=== PATIENT | female | born 1965 | race Caucasian/White ===

== ENCOUNTER → 2016-08-27 | Outpatient (CLI) | payer OTHER ==
[~2016-08-27] MED LIST: ASPI325T39 PO; TRAM-10 PO
[2016-08-27 13:37] LABS: HEMATOCRIT 42.9 % (37-47); MEAN CELL VOLUME 98.2 fL (80-100); MEAN CORPUSCULAR HEMOGLOBIN 34.1 pg (25-34); MEAN CORPUSCULAR HGB CONC 34.7 g/dl (32-36); RED BLOOD COUNT 4.37 M/uL (4.2-5.4); WHITE BLOOD COUNT 4.24 K/uL (4.8-10.8)
[2016-08-27 13:48] LABS: MEAN PLATELET VOLUME 11.9 fL (7.4-10.4); PLATELET COUNT 75 K/uL (130-400)
[2016-08-27 13:49] LABS: ALT/SGPT 35 U/L (12-78); BLOOD UREA NITROGEN 7 mg/dl (7-18); BUN/CREATININE RATIO 10.7 (10-20); CALCIUM 8.6 mg/dl (8.5-10.1); CARBON DIOXIDE 27 mmol/L (21-32); CHLORIDE 108 mmol/L (98-107); CREATININE 0.67 mg/dl (0.60-1.20); GLUCOSE 90 mg/dl (70-99); SODIUM 143 mmol/L (136-145)
[2016-08-27 13:52] LABS: ALB/GLOB RATIO 0.7 (0.9-2); ALKALINE PHOSPHATASE 117 U/L (45-117); AST/SGOT 58 U/L (15-37)
[2016-08-27 14:14] LABS: BASO % 0.9 %; BASO ABS # 0.04 K/uL (0-0.2); COMPLETE YES; EOS % 1.7 %; LYMPH % 33.7 %; LYMPH ABS # 1.43 K/uL (1.2-3.4); MONO % 20.8 %; NEUT % 42.9 %
[2016-08-31 07:17] LABS: HEPATITIS C VIRAL RNA BY PCR <15 NOT DETECTED IU/ML (<15); HEPATITIS C VIRAL RNA(LOG) PCR <1.18 NOT DETECTED LOG IU/ML (<1.18)
== END | disposition home or self-care (01) ==
LOC: C.LAB1850 11:55
PROVIDERS: ATTEND Internal Medicine
DX: B19.20 Unspecified viral hepatitis C without hepatic coma (principal)

== ENCOUNTER → 2016-11-19 | Outpatient (CLI) | payer OTHER ==
[~2016-11-19] MED LIST changes: -TRAM-10 PO
[2016-11-19 14:45] LABS: HEMATOCRIT 40.9 % (37-47); MEAN CELL VOLUME 97.1 fL (80-100); MEAN CORPUSCULAR HEMOGLOBIN 33.7 pg (25-34); MEAN CORPUSCULAR HGB CONC 34.7 g/dl (32-36); RED BLOOD COUNT 4.21 M/uL (4.2-5.4); WHITE BLOOD COUNT 3.94 K/uL (4.8-10.8)
[2016-11-19 14:50] LABS: MEAN PLATELET VOLUME 11.9 fL (7.4-10.4); PLATELET COUNT 70 K/uL (130-400)
[2016-11-19 14:53] LABS: INR 1.1 (0.9-1.1)
[2016-11-19 15:04] LABS: ALT/SGPT 33 U/L (12-78); BLOOD UREA NITROGEN 6 mg/dl (7-18); BUN/CREATININE RATIO 9.1 (10-20); CALCIUM 8.7 mg/dl (8.5-10.1); CARBON DIOXIDE 26 mmol/L (21-32); CHLORIDE 109 mmol/L (98-107); GLUCOSE 88 mg/dl (70-99); POTASSIUM 3.9 mmol/L (3.5-5.1); SODIUM 141 mmol/L (136-145)
[2016-11-19 15:07] LABS: ALB/GLOB RATIO 0.7 (0.9-2); ALKALINE PHOSPHATASE 89 U/L (45-117); AST/SGOT 46 U/L (15-37)
[2016-11-19 15:18] LABS: BASOPHIL % 2.6 %; COMPLETE YES; EOSINOPHIL % 3.5 %; LYMPH ABS # 1.45 K/uL (1.2-3.4); LYMPHOCYTE % 36.9 %; NEUTROPHILS % 31.6 %; VARIANT LYM ABS # 0.45 K/uL; VARIANT LYMPHOCYTE % 11.4 %
[2016-11-23 09:01] LABS: HEPATITIS C VIRAL RNA BY PCR <15 NOT DETECTED IU/ML (<15); HEPATITIS C VIRAL RNA(LOG) PCR <1.18 NOT DETECTED LOG IU/ML (<1.18)
== END | disposition home or self-care (01) ==
LOC: C.LAB1850 13:12
PROVIDERS: ATTEND Internal Medicine
DX: B19.20 Unspecified viral hepatitis C without hepatic coma (principal)

== ENCOUNTER → 2016-12-07 | Outpatient (CLI) | payer OTHER ==
--- NOTE | 2016-12-07 10:33 | DIAGNOSTIC IMAGING REPORT ---
ABDOMINAL ULTRASOUND COMPLETE HISTORY: Hepatitis. Cirrhosis. . COMPARISON: 11/02/2015 FINDINGS: Pancreas: The pancreas demonstrates a normal echotexture. Liver: Mild fatty infiltration. Gallbladder: Moderately thickened gallbladder wall at 5 mm. No shadowing gallstones. No significant pericholecystic fluid. CBD: 5 mm Kidneys: No hydronephrosis. Spleen: Moderately enlarged at 13 cm Aorta: Normal in caliber. IVC: Patent. IMPRESSION: 1. Findings suggesting early hepatic cirrhosis mild fatty infiltration. 2. Moderate splenomegaly. 3. Moderate thickening gallbladder wall 5 mm possibly metabolic Electronically signed by: Bertram Fuchs M.D. 12/07/2016 10:30 AM Dictated Date/Time: 12/07/2016 10:28 AM
== END ==
LOC: C.ULTR 06:19
PROVIDERS: ATTEND Internal Medicine Hepatology
DX: K74.69 Other cirrhosis of liver (principal); B18.2 Chronic viral hepatitis C

== ENCOUNTER 2017-01-06 13:36 | Emergency (ER) | payer OTHER ==
[~2017-01-06] VITALS: Ht 165.1 cm; Wt 58.1 kg
[2017-01-06 13:44] VITALS: TEMP 37.3; Ht 165.1 cm; Wt 58.1 kg
[2017-01-06] MEDS ORDERED: ASPI325T39 PO (14:06)
[2017-01-06] MEDS ORDERED: IBUPROFEN 600 MG TAB PO STA (14:07)
[2017-01-06] MEDS ORDERED: TRAMADOL HCL 50 MG TAB PO STA (14:07)
--- NOTE | 2017-01-06 15:19 | DIAGNOSTIC IMAGING REPORT ---
THORACIC SPINE 3 VIEWS CLINICAL HISTORY: Fall with thoracic back pain. FINDINGS: AP, lateral, and swimmer's views of the thoracic spine are correlated with thoracic spinal CT dated 11/02/2015. The skeletal structures are osteopenic. There is no radiographic evidence of fracture or malalignment. Vertebral body height and alignment are maintained throughout the thoracic spine. Anterior osteophytes are seen throughout. The transverse processes and pedicles appear maintained on the frontal view. There is mild multilevel degenerative disc space narrowing. The lung parenchyma is clear as imaged noting advanced emphysema and chronic interstitial thickening. IMPRESSION: Osteopenia and degenerative change as above. No acute bony abnormality is seen involving the thoracic spine. Electronically signed by: Ismael Post M.D. 01/06/2017 3:18 PM Dictated Date/Time: 01/06/2017 3:16 PM
--- NOTE | 2017-01-06 15:27 | DIAGNOSTIC IMAGING REPORT ---
PA CHEST WITH BILATERAL RIB SERIES CLINICAL HISTORY: Fall. Chest wall pain. FINDINGS: A PA chest radiograph with 9 views from a bilateral rib series is compared to study dated 02/25/2016 and correlated with chest CT dated 11/02/2015. The cardiomediastinal silhouette is unremarkable. Advanced emphysema and chronic interstitial thickening are similar to previous. There is no airspace consolidation, pleural effusion, or pneumothorax. The skeletal structures are osteopenic. There are several healed right anterior rib fractures. These were also seen by CT on 11/02/2015. There is no radiographic evidence of acute/distracted rib fracture on the bilateral rib series. The remainder of the bony thorax is grossly intact. IMPRESSION: 1. Emphysema with no acute cardiopulmonary abnormality. 2. There is no radiographic evidence of acute/distracted rib fracture on the bilateral rib series. 3. Healed right anterior rib fractures are again noted. Electronically signed by: Ismael Post M.D. 01/06/2017 3:26 PM Dictated Date/Time: 01/06/2017 3:21 PM
--- NOTE | 2017-01-06 15:44 | EMERGENCY ROOM VISIT NOTE ---
History First contact with patient: 14:01 Chief Complaint: FALL Stated Complaint: TRIPPED AND FELL, BACK/RIB History of Present Illness The patient is a 51 year old female who presents to the Emergency Room with complaints of central back and rib pain after tripping and falling backward yesterday afternoon in her living room. The patient reports that she came inside and when walking through her living room, tripped on a dog bed laying in the floor. She reports landing directly on her back. She reports that the floor is a concrete floor. She did hit her head, but denies any headache, dizziness, nausea or neck pain. She denies any loss of consciousness. The patient now reports worsening pain with any movement or deep breathing. She does not feel short of breath. She has not noticed any darkening urine or blood in her urine. She rates her discomfort a 10 out of 10. She did take an aspirin at home without relief. 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 (7) Hepatitis, alcoholic (8) Pancreatitis Family History FH: cancer FH: heart disease Social History Smoking Status: Current Every Day Smoker Alcohol Use: occasionally Marital Status: single Housing Status: lives alone Occupation Status: unemployed Current/Historical Medications Scheduled PRN Aspirin (Aspirin Ec), 325 MG PO DIRECTED PRN for Pain Allergies Coded Allergies: Codeine (Verified Adverse Reaction, Severe, upset stomach, 03/26/16) Physical Exam Vital Signs Date Time Temp Pulse Resp B/P Pulse Ox O2 Delivery O2 Flow Rate FiO2 01/06/17 13:44 37.3 88 20 131/89 93 Room Air Physical Exam CONSTITUTIONAL: Healthy and well nourished. Alert and oriented X 3 with positive affect. Patient appears in mild discomfort from pain. Smell of EtOH is present. HEENT: Normocephalic, atraumatic. Pupils equal, round and reactive. Nose is without hemorrhage, epistaxis, hemotympanum, scalp hematomas, raccoon's eyes or Sage sign. NECK: Full active range of motion without discomfort. No tenderness to palpation through the central cervical spine or cervical musculature. RESPIRATORY: Clear to auscultation bilaterally with no wheezing, crackles, rhonchi or stridor. Deep breathing worsens the patient's central back pain. CARDIOVASCULAR: Regular rate and rhythm with no murmurs, rubs or gallops. GASTROINTESTINAL: Bowel sounds present in all quadrants. Soft and nontender to palpation. MUSCULOSKELETAL: Examination shows general tenderness to palpation through the lower thoracic spine and posterior ribs bilaterally. No subcutaneous emphysema or crepitance appreciated. The patient has no anterior chest wall pain. She has full range of motion of the shoulders without discomfort. Pelvis stable with rock. Negative logroll. Negative straight leg raise bilaterally. Distal pulses are intact. Equal hand tariff clerk bilaterally. Ankle plantar/dorsiflexion strength is 5 out of 5 and symmetric bilaterally. INTEGUMENTARY: No rash or other significant dermatologic conditions noted. NEUROLOGIC: No focal neurologic deficits noted. Upper and lower extremities are sensory intact. Medical Decision & Procedures ER Provider Diagnostic Interpretation: My interpretation of thoracic spine x-rays does not show any obvious fractures. Radiologist report is as follows: THORACIC SPINE 3 VIEWS CLINICAL HISTORY: Fall with thoracic back pain. FINDINGS: AP, lateral, and swimmer's views of the thoracic spine are correlated with thoracic spinal CT dated 11/02/2015. The skeletal structures are osteopenic. There is no radiographic evidence of fracture or malalignment. Vertebral body height and alignment are maintained throughout the thoracic spine. Anterior osteophytes are seen throughout. The transverse processes and pedicles appear maintained on the frontal view. There is mild multilevel degenerative disc space narrowing. The lung parenchyma is clear as imaged noting advanced emphysema and chronic interstitial thickening. IMPRESSION: Osteopenia and degenerative change as above. No acute bony abnormality is seen involving the thoracic spine. My interpretation of bilateral rib x-rays with a PA chest view does not show any acute posterior rib fractures or pneumothorax. Old healed anterior rib fractures are noted. Radiologist report is as follows: PA CHEST WITH BILATERAL RIB SERIES CLINICAL HISTORY: Fall. Chest wall pain. FINDINGS: A PA chest radiograph with 9 views from a bilateral rib series is compared to study dated 02/25/2016 and correlated with chest CT dated 11/02/2015. The cardiomediastinal silhouette is unremarkable. Advanced emphysema and chronic interstitial thickening are similar to previous. There is no airspace consolidation, pleural effusion, or pneumothorax. The skeletal structures are osteopenic. There are several healed right anterior rib fractures. These were also seen by CT on 11/02/2015. There is no radiographic evidence of acute/distracted rib fracture on the bilateral rib series. The remainder of the bony thorax is grossly intact. IMPRESSION: 1. Emphysema with no acute cardiopulmonary abnormality. 2. There is no radiographic evidence of acute/distracted rib fracture on the bilateral rib series. 3. Healed right anterior rib fractures are again noted. Laboratory Results Urine dip was performed to show no hematuria Medications Administered Medications (Trade) Dose Ordered Sig/Bola Route Start Time Stop Time Status Last Admin Dose Admin Tramadol HCl (Ultram Tab) 50 mg ONE STAT PO 01/06/17 14:07 01/06/17 14:10 DC 01/06/17 14:14 50 MG Ibuprofen (Motrin Tab) 600 mg NOW STAT PO 01/06/17 14:07 01/06/17 14:10 DC 01/06/17 14:14 600 MG ED Course Patient history and physical exam were performed. Nurse's notes were reviewed. The patient was administered ibuprofen 600 mg and Ultram 50 mg for pain. X- rays of the thoracic spine and ribs with a PA chest view were normal. Urine dip showed no evidence of hematuria. The patient was encouraged to intermittently apply ice to the back over the next few days, then moist heat as needed. Ibuprofen and Tylenol in alternating fashion as needed for additional pain relief. The patient refused any prescription analgesics. She was instructed to follow-up with her PCP as needed for further management. The patient was happy with plan of care, voiced understanding of all discharge instructions, and rated her pain a 3 out of 10 at the conclusion of my exam. Impression Primary Impression: Back contusion Additional Impression: Fall in home Departure Information Referrals RV. Guillen MD (PCP) Patient Instructions My [facility] Problem Qualifiers
[2017-01-06 16:00] VITALS: BP 125/76; PULSE 76; O2SAT 98
== END 2017-01-06 16:38 | disposition home or self-care (01) ==
LOC: C.EDB 13:38 → C.EDC 16:38
DX: S20.229A Contusion of unspecified back wall of thorax, initial encounter (principal); W01.0XXA Fall on same level from slipping, tripping and stumbling without subsequent striking against object, initial encounter; K70.10 Alcoholic hepatitis without ascites; K85.90 Acute pancreatitis without necrosis or infection, unspecified; F17.200 Nicotine dependence, unspecified, uncomplicated; Z88.5 Allergy status to narcotic agent; Z80.9 Family history of malignant neoplasm, unspecified; Z82.49 Family history of ischemic heart disease and other diseases of the circulatory system

== ENCOUNTER 2017-11-01 01:41 | Inpatient (IN) | payer OTHER ==
[~2017-11-01] VITALS: Ht 165.1 cm; Wt 63.7 kg
--- NOTE | 2017-11-01 01:57 | EMERGENCY ROOM VISIT NOTE ---
History Report prepared by Ivone: Mery Carbajal Under the Supervision of: Dr. Bertha Estrada D.O. First contact with patient: 01:50 Chief Complaint: ABDOMINAL PAIN Stated Complaint: ABDOMINAL PAIN ALL AROUND, VOMITING History of Present Illness The patient is a 51 year old female who presents to the Emergency Room with complaints of worsening upper abdominal pain beginning a couple months ago. The patient describes the pain as a stabbing pain and rates it at a 9/10. She also reports having a right-sided cramping pain in her chest. She states that she has been vomiting blood for a month and that the last episode was 1 week ago. She reports having nausea and vomiting currently but with no blood. She does report that when she vomits she would also get a nosebleed. She reports having fevers, chills, and shortness of breath from the pain, but denies having urinary symptoms and diarrhea. She reports that she has been feeling bloated for the last couple of months. The patient states that she has also had a cough but that she has not been coughing up blood. The patient states that she had pancreatitis 4-5 years ago, and that her pain feels similar to this. She states that she is an alcoholic and that she drinks about a fifth per day. She reports that her last drink was at 1300 yesterday. The patient states that she feels anxious and agitated. She also states that she smokes a pack of cigarettes per day. She reports that she takes aspirin daily. Source of History: patient Onset: a couple months ago Position: abdomen Symptom Intensity: rated at a 9/10 Quality: stabbing Timing: worsening Associated Symptoms: + fevers, + chills, + cough, + SOB, + nausea, + vomiting, No diarrhea, No urinary symptoms Note: additional symptoms: vomiting blood, nosebleeds with vomiting Review of Systems See HPI for pertinent positives & negatives. A total of 10 systems reviewed and were otherwise negative. Past Medical & Surgical Medical Problems: (1) Alcohol abuse (2) Alcohol intoxication (3) Alcohol withdrawal delirium, acute, hyperactive (4) Cirrhosis of liver (5) Colitis (6) Gastritis (7) Gastritis due to alcohol without hemorrhage (8) Hepatitis, alcoholic (9) Pancreatitis Family History FH: cancer FH: heart disease Social History Smoking Status: Current Every Day Smoker Alcohol Use: heavy Marital Status: Housing Status: lives with significant other Occupation Status: unemployed Current/Historical Medications Scheduled Aspirin (Aspirin Ec), 81 MG PO DAILY Allergies Coded Allergies: Codeine (Verified Adverse Reaction, Severe, upset stomach, 11/01/17) Physical Exam Vital Signs Date Time Temp Pulse Resp B/P (MAP) Pulse Ox O2 Delivery O2 Flow Rate FiO2 11/01/17 06:33 78 20 111/72 95 11/01/17 05:12 77 11/01/17 04:56 91 17 94 Nasal Cannula 2.0 11/01/17 04:54 102/75 11/01/17 04:51 124/81 11/01/17 04:26 88 19 96 Nasal Cannula 2.0 11/01/17 03:56 74 15 96 Nasal Cannula 2.0 11/01/17 03:26 83 23 98 Nasal Cannula 2.0 11/01/17 03:21 124/81 11/01/17 03:00 76 14 97 Nasal Cannula 2.0 11/01/17 02:59 97 Nasal Cannula 2.0 11/01/17 02:56 80 22 121/69 97 Nasal Cannula 2.0 11/01/17 02:27 95 Room Air 11/01/17 02:06 84 11/01/17 01:46 36.7 86 19 120/70 96 Room Air Physical Exam General: Appeared uncomfortable, smelled of alcohol. HEENT: Head - normocephalic and atraumatic Pupils are equal, round, and reactive to light. Extraocular eye muscles are intact, and sclera are anicteric. Nose - moist nasal mucosa without discharge. Mouth - moist buccal mucosa. Oropharynx is nonerythematous and there is no tonsillar exudate or edema noted. Neck: Supple; no JVD, nuchal rigidity, cervical lymphadenopathy. Heart: Tachycardic and regular rhythm. There is a normal S1 and S2 with no murmurs, clicks, or gallops appreciated. Lungs: Clear to auscultation bilaterally with no wheezes, rales, or rhonchi. Abdomen: Extreme pain in epigastrium, left upper quadrant and right upper quadrant with palpation, distended with good bowel sounds. There are no palpable pulsatile masses or hepatosplenomegaly. There is no guarding, rigidity , or rebound noted. Extremities: No evidence of cyanosis, clubbing, or edema. There are easily palpable peripheral pulses. Skin: warm and dry with good turgor and no rashes. Medical Decision & Procedures ER Provider Diagnostic Interpretation: Radiology results as stated below per my review and [facility]. CT ABDOMEN & PELVIS With Contrast: Cirrhotic liver with hepatic steatosis. Gallbladder is distended. Spleen, pancreas, and adrenal glands are unremarkable. Probably cyst with the left kidney. Otherwise, kidneys, ureters, and urinary bladder are unremarkable. Uterus and adnexa unremarkable. Appendix is unremarkable. Few scattered noninflamed colonic diverticula. Noninflamed colonic diverticulosis. Postsurgical changes within the right posterior acetabulum. US RUQ: Hepatic steatosis with fatty sparing about the gallbladder fossa. Gallbladder is distended. No gallstones, sludge, gallbladder wall thickening or pericholecystic fluid. Common bile duct is within normal limits measuring 6 mm. Right kidney is unremarkable. Trace free fluid seen about the right hepatic lobe. Laboratory Results 11/01/17 02:00 Red Blood Count 4.26, Mean Corpuscular Volume 98.4, Mean Corpuscular Hemoglobin 34.5, Mean Corpuscular Hemoglobin Concent 35.1, Mean Platelet Volume 11.7, Neutrophils (%) (Auto) 41.1, Lymphocytes (%) (Auto) 40.2, Monocytes (%) (Auto) 16.0, Eosinophils (%) (Auto) 1.8, Basophils (%) (Auto) 0.7, Neutrophils # (Auto ) 2.26, Lymphocytes # (Auto) 2.21, Monocytes # (Auto) 0.88, Eosinophils # (Auto ) 0.10, Basophils # (Auto) 0.04 11/01/17 02:00 Test 11/01/17 02:00 11/01/17 02:20 White Blood Count 5.50 K/uL (4.8-10.8) Red Blood Count 4.26 M/uL (4.2-5.4) Hemoglobin 14.7 g/dL (12.0-16.0) Hematocrit 41.9 % (37-47) Mean Corpuscular Volume 98.4 fL (80-100) Mean Corpuscular Hemoglobin 34.5 pg (25-34) Mean Corpuscular Hemoglobin Concent 35.1 g/dl (32-36) Platelet Count 65 K/uL (130-400) Mean Platelet Volume 11.7 fL (7.4-10.4) Neutrophils (%) (Auto) 41.1 % Lymphocytes (%) (Auto) 40.2 % Monocytes (%) (Auto) 16.0 % Eosinophils (%) (Auto) 1.8 % Basophils (%) (Auto) 0.7 % Neutrophils # (Auto) 2.26 K/uL (1.4-6.5) Lymphocytes # (Auto) 2.21 K/uL (1.2-3.4) Monocytes # (Auto) 0.88 K/uL (0.11-0.59) Eosinophils # (Auto) 0.10 K/uL (0-0.5) Basophils # (Auto) 0.04 K/uL (0-0.2) RDW Standard Deviation 50.5 fL (36.4-46.3) RDW Coefficient of Variation 14.1 % (11.5-14.5) Immature Granulocyte % (Auto) 0.2 % Immature Granulocyte # (Auto) 0.01 K/uL (0.00-0.02) Platelet Estimate DECREASED Large Platelets 1+ Prothrombin Time 11.4 SECONDS (9.0-12.0) Prothromb Time International Ratio 1.1 (0.9-1.1) Activated Partial Thromboplast Time 27.1 SECONDS (21.0-31.0) Partial Thromboplastin Ratio 1.0 Anion Gap 10.0 mmol/L (3-11) Est Creatinine Clear Calc Drug Dose 98.7 ml/min Estimated GFR () 121.5 Estimated GFR (Non- 104.8 BUN/Creatinine Ratio 12.7 (10-20) Calcium Level 8.5 mg/dl (8.5-10.1) Total Bilirubin 0.6 mg/dl (0.2-1) Direct Bilirubin 0.2 mg/dl (0-0.2) Aspartate Amino Transf (AST/SGOT) 99 U/L (15-37) Alanine Aminotransferase (ALT/SGPT) 55 U/L (12-78) Alkaline Phosphatase 103 U/L (45-117) Total Protein 9.1 gm/dl (6.4-8.2) Albumin 3.7 gm/dl (3.4-5.0) Lipase 463 U/L (73-393) Ethyl Alcohol mg/dL 292.0 mg/dl (0-3) Laboratory results per my review. Medications Administered Medications (Trade) Dose Ordered Sig/Bola Route Start Time Stop Time Status Last Admin Dose Admin Lorazepam (Ativan Inj) 1 mg NOW STAT IV 11/01/17 02:19 11/01/17 02:23 DC 11/01/17 02:30 1 MG Sodium Chloride 500 ml @ 999 mls/hr Q31M STAT IV 11/01/17 02:19 11/01/17 02:49 DC 11/01/17 02:19 999 MLS/HR Multivitamins 10 ml/Thiamine HCl 100 mg/Folic Acid 1 mg/Sodium Chloride 1,011.2 ml @ 200 mls/ hr Q5H4M ONCE IV 11/01/17 02:30 11/01/17 07:33 11/01/17 02:54 200 MLS/HR Hydromorphone HCl (Dilaudid Inj) 0.5 mg NOW STAT IV 11/01/17 03:04 11/01/17 03:05 DC 11/01/17 03:25 0.5 MG Lorazepam (Ativan Inj) 0.5 mg NOW STAT IV 11/01/17 04:05 11/01/17 04:06 DC 11/01/17 04:24 0.5 MG Procedure Medications Sodium Chloride 500 ml @ 999 mls/hr IV Ativan Inj 1 mg IV Multivitamins 10 ml/Thiamine HCl 100 mg/Folic Acid 1 mg/Sodium Chloride 1,011.2 ml @ 200 mls/hr IV Dilaudid Inj 0.5 mg IV Ativan Inj 0.5 mg IV ECG Per My Interpretation Indication: abdominal pain Rate (beats per minute): 81 Rhythm: normal sinus Findings: no acute ischemic change, no ectopy ED Course 0153: The patient was evaluated by the medical student. 0219: An IV lock was initiated and labs were drawn as above. Ordered Sodium Chloride 500 ml @ 999 mls/hr IV, Ativan Inj 1 mg IV. 0225: Past medical records reviewed. The patient was evaluated in room B2. A complete history and physical exam was performed. 0230: Ordered Multivitamins 10 ml/Thiamine HCl 100 mg/Folic Acid 1 mg/Sodium Chloride 1,011.2 ml @ 200 mls/hr IV. 0304: Ordered Dilaudid Inj 0.5 mg IV. The patient went for CT scan of the abdomen/pelvis to rule out acute pancreatitis. This was unremarkable except for a distended gallbladder. She will go for ultrasound of the gallbladder specifically. 0404: I checked on the patient and she says that her abdominal pain feels better but she is still shaky from withdrawal. 0405: Ordered Ativan Inj 0.5 mg IV. 0543: I reexamined the patient and she is pain free in the abdomen but she is interested in detoxing and going to rehabilitation. 0556: Upon reevaluation, I discussed findings and results with the patient. She verbalized agreement of the treatment plan. I spoke with Dr. Bennett of the [facility] Hospitalist [facility]. The patient will be evaluated for further management and care. Medical Decision The patient is a 51 year old female who presents to the ED with abdominal pain. Differential diagnosis includes SBP, ascites, alcohol withdrawal, cholecystitis , and pancreatitis. Labs Normal white count Stable H and H Platelet count of 65, baseline for her Potassium slightly low at 3.3 Glucose 94 LFTs normal Lipase 463 Coags normal Alcohol 292 This is a 51-year-old female patient presents to the emergency department with severe epigastric abdominal pain. The patient is an alcoholic. Her last alcoholic beverage was approximately 12 hours ago. She is suffering from some withdrawal symptoms at this time. She has been having intermittent episodes of epigastric abdominal pain and hematemesis. She is concerned that she has pancreatitis as she has had in the past. Her alcohol level was 292. Lipase was 463. She went for CT scan of the abdomen/pelvis which showed no evidence of pancreatic infiltration. The gallbladder was slightly distended. She went for an ultrasound of the gallbladder which showed no acute evidence of cholecystitis. The patient is requesting admission to the hospital for alcohol detox and then admission to a inpatient rehab facility. Medication Reconcilliation Current Medication List: was personally reviewed by me Blood Pressure Screening Patient's blood pressure: Normal blood pressure Consults Time Called: 0540 Consulting Physician: Dr. Bennett- MaKelsea Lopez Returned Call: [phone] Discussed the patient's case. The patient will be evaluated for further management. Impression Primary Impression: Epigastric pain Additional Impression: Alcohol withdrawal Scribe Attestation The scribe's documentation has been prepared under my direction and personally reviewed by me in its entirety. I confirm that the note above accurately reflects all work, treatment, procedures, and medical decision making performed by me. Departure Information Dispostion Being Evaluated By Hospitalist Referrals RV. Guillen MD (PCP) Patient Instructions My [facility] Problem Qualifiers Additional Impression: Alcohol withdrawal Complication of substance-induced condition: uncomplicated Qualified Codes: F10.230 - Alcohol dependence with withdrawal, uncomplicated
[2017-11-01] MEDS ORDERED: SODIUM CHLORIDE 0.9% 500ML 500 ML IV STA (02:19)
[2017-11-01] MEDS ORDERED: LORAZEPAM 2 MG/ML 1 ML VIAL IV STA ×2 (02:19→04:05)
[2017-11-01] MEDS ORDERED: MULTI-VITAMIN INFUSION INJ 10 ML, THIAMINE HCL INJ 100 MG, FoLIC ACID INJ 1 MG in SODIU... IV ONE (02:30)
[2017-11-01 02:40] LABS: ALBUMIN 3.7 gm/dl (3.4-5.0); CALCIUM 8.5 mg/dl (8.5-10.1); CREATININE 0.6 mg/dl (0.60-1.20); POTASSIUM 3.3 mmol/L (3.5-5.1)
[2017-11-01 02:41] LABS: INR 1.1 (0.9-1.1); PTT PATIENT 27.1 SECONDS (21.0-31.0)
[2017-11-01 02:43] LABS: TOTAL PROTEIN 9.1 gm/dl (6.4-8.2)
[2017-11-01] MEDS ORDERED: ASPI81TA28 PO (03:03)
[2017-11-01] MEDS ORDERED: HYDROmorphone INJ 0.5 MG/0.5 ML SYR IV STA (03:04)
[2017-11-01 03:05] LABS: HEMATOCRIT 41.9 % (37-47); HEMOGLOBIN 14.7 g/dL (12.0-16.0); MEAN CELL VOLUME 98.4 fL (80-100); MEAN CORPUSCULAR HEMOGLOBIN 34.5 pg (25-34); MEAN CORPUSCULAR HGB CONC 35.1 g/dl (32-36); MEAN PLATELET VOLUME 11.7 fL (7.4-10.4); PLATELET COUNT 65 K/uL (130-400); RED CELL DISTRIBUTION WIDTH CV 14.1 % (11.5-14.5); RED CELL DISTRIBUTION WIDTH SD 50.5 fL (36.4-46.3)
[2017-11-01] MEDS ORDERED: OPTIRAY 320 IV PRN (03:15)
[2017-11-01 03:19] LABS: BASO % 0.7 %; BASO ABS # 0.04 K/uL (0-0.2); EOS % 1.8 %; IG# 0.01 K/uL (0.00-0.02); LYMPH % 40.2 %; LYMPH ABS # 2.21 K/uL (1.2-3.4); MONO ABS # 0.88 K/uL (0.11-0.59); NEUT % 41.1 %; NEUT ABS # 2.26 K/uL (1.4-6.5)
[2017-11-01] MEDS ORDERED: POLYETHYLENE (MIRALAX) 17 GM PACK PO PRN (06:00)
[2017-11-01] MEDS ORDERED: ALUMINUM/MAGNESIUM/SIMETH (MAALOX MAX) 30 ML UDC PO PRN (06:00)
[2017-11-01] MEDS ORDERED: MAGNESIUM HYDROXIDE SUSP 30 ML UDC PO PRN (06:00)
[2017-11-01] MEDS ORDERED: ONDANSETRON INJ 2 MG/ML 2 ML VIAL IV PRN (06:00)
[2017-11-01] MEDS ORDERED: METOCLOPRAMIDE HCL INJ 5 MG/ML 2 ML VIAL IV. PRN (06:15)
[2017-11-01] MEDS ORDERED: LORAZEPAM 2 MG/ML 1 ML VIAL IV PRN ×2 (06:30)
[2017-11-01] MEDS ORDERED: LORAZEPAM INJ 1 MG in SYRINGE 0.5 ML IV PRN (06:30)
[2017-11-01] MEDS ORDERED: LORAZEPAM INJ 2 MG in SYRINGE 1 ML IV PRN (06:30)
--- NOTE | 2017-11-01 06:38 | History and Physical ---
History & Physical Date & Time of Service: Nov 01, 2017 at 06:19 Chief Complaint: Abdominal Pain All Around, Vomiting Primary Care Physician: RV. Guillen MD History of Present Illness Source: patient 51 y/o F hx Hepatitis C which was cured, pancreatitis, alcoholism and cirrhosis. The pt presented with upper quadrant abdominal pain, nausea and vomiting. She stated that some of her vomitus was blood streaked. She denies diarrhea or fevers. Denies CP or SOB. The pt was treated for pain in the ER and subjected to a CT abdomen and an ultrasound of the gallbladder. No acute findings were present and her pain and nausea gradually abated. Initial labs were notable for an ETOH level of 292, mildly elevated lipase and thrombocytopenia which is chronic. Past Medical/Surgical History 1) ETOH cirrhosis 2) Hepatitis C - cured with Harvoni 3) Pancreatitis Family History FH: cancer FH: heart disease Social History Smokes one pack daily, drinks 1/5 daily - states she has abused ETOH for 35 years Smoking Status: Current Every Day Smoker Marital Status: Occupational Status: unemployed Immunizations History of Influenza Vaccine: Yes History of Tetanus Vaccine?: Yes Tetanus Immunization Date: Nov 17, 2007 History of Pneumococcal: No History of Hepatitis B Vaccine: Unknown Allergies Coded Allergies: Codeine (Verified Adverse Reaction, Severe, upset stomach, 11/01/17) Home Medications Scheduled Aspirin (Aspirin Ec), 81 MG PO DAILY Review of Systems Constitutional: No fever, No chills, No sweats Eyes: No worsening of vision ENT: No hearing loss, No unusual epistaxis, No nasal symptoms Respiratory: No cough, No sputum, No wheezing Cardiovascular: No chest pain, No orthopnea, No PND Abdomen: + pain, + nausea, + vomiting, + problem reported (Blood streaked vomitus) Genitourinary - Female: No dysuria, No urinary frequency, No urinary urgency Neurologic: No memory loss, No paralysis, No weakness Psychiatric: + anxiety (feels as though she may be beginning to withdraw), No depression symptoms Endocrine: No fatigue Hematologic / Lymphatic: No abnormal bleeding/bruising Integumentary: No rash Allergic / Immunologic: No environmental allergies Physical Exam Vital Signs Date Time Temp Pulse Resp B/P (MAP) Pulse Ox O2 Delivery O2 Flow Rate FiO2 11/01/17 05:12 77 11/01/17 04:56 91 17 94 Nasal Cannula 2.0 3/13/18 04:54 102/75 11/01/17 04:51 124/81 11/01/17 04:26 88 19 96 Nasal Cannula 2.0 11/01/17 03:56 74 15 96 Nasal Cannula 2.0 11/01/17 03:26 83 23 98 Nasal Cannula 2.0 11/01/17 03:21 124/81 11/01/17 03:00 76 14 97 Nasal Cannula 2.0 11/01/17 02:59 97 Nasal Cannula 2.0 11/01/17 02:56 80 22 121/69 97 Nasal Cannula 2.0 11/01/17 02:27 95 Room Air 11/01/17 02:06 84 11/01/17 01:46 36.7 86 19 120/70 96 Room Air General Appearance: WD/WN, no apparent distress Head: normocephalic Eyes: normal inspection ENT: normal ENT inspection, pharynx normal Neck: supple, no JVD Respiratory/Chest: chest non-tender, lungs clear, normal breath sounds Cardiovascular: regular rate, rhythm, no edema Abdomen/GI: normal bowel sounds, + pertinent finding (Mild distention without tenderness to palpation) Back: normal inspection, no CVA tenderness Extremities/Musculoskelatal: normal inspection, no calf tenderness, normal capillary refill Neurologic/Psych: lead cook II-XII nml as tested, no motor/sensory deficits, alert, oriented x 3 Skin: normal color Diagnostics Laboratory Results Results Past 24 Hours Test 11/01/17 02:00 11/01/17 02:20 Range/Units White Blood Count 5.50 4.8-10.8 K/uL Red Blood Count 4.26 4.2-5.4 M/uL Hemoglobin 14.7 12.0-16.0 g/dL Hematocrit 41.9 37-47 % Mean Corpuscular Volume 98.4 80-100 fL Mean Corpuscular Hemoglobin 34.5 25-34 pg Mean Corpuscular Hemoglobin Concent 35.1 32-36 g/dl Platelet Count 65 130-400 K/uL Mean Platelet Volume 11.7 7.4-10.4 fL Neutrophils (%) (Auto) 41.1 % Lymphocytes (%) (Auto) 40.2 % Monocytes (%) (Auto) 16.0 % Eosinophils (%) (Auto) 1.8 % Basophils (%) (Auto) 0.7 % Neutrophils # (Auto) 2.26 1.4-6.5 K/uL Lymphocytes # (Auto) 2.21 1.2-3.4 K/uL Monocytes # (Auto) 0.88 0.11-0.59 K/uL Eosinophils # (Auto) 0.10 0-0.5 K/uL Basophils # (Auto) 0.04 0-0.2 K/uL RDW Standard Deviation 50.5 36.4-46.3 fL RDW Coefficient of Variation 14.1 11.5-14.5 % Immature Granulocyte % (Auto) 0.2 % Immature Granulocyte # (Auto) 0.01 0.00-0.02 K/uL Platelet Estimate DECREASED Large Platelets 1+ Prothrombin Time 11.4 9.0-12.0 SECONDS Prothromb Time International Ratio 1.1 0.9-1.1 Activated Partial Thromboplast Time 27.1 21.0-31.0 SECONDS Partial Thromboplastin Ratio 1.0 Sodium Level 147 136-145 mmol/L Potassium Level 3.3 3.5-5.1 mmol/L Chloride Level 112 98-107 mmol/L Carbon Dioxide Level 25 21-32 mmol/L Anion Gap 10.0 3-11 mmol/L Blood Urea Nitrogen 8 7-18 mg/dl Creatinine 0.60 0.60-1.20 mg/dl Est Creatinine Clear Calc Drug Dose 98.7 ml/min Estimated GFR () 121.5 Estimated GFR (Non- 104.8 BUN/Creatinine Ratio 12.7 10-20 Random Glucose 94 70-99 mg/dl Calcium Level 8.5 8.5-10.1 mg/dl Total Bilirubin 0.6 0.2-1 mg/dl Direct Bilirubin 0.2 0-0.2 mg/dl Aspartate Amino Transf (AST/SGOT) 99 15-37 U/L Alanine Aminotransferase (ALT/SGPT) 55 12-78 U/L Alkaline Phosphatase 103 45-117 U/L Total Protein 9.1 6.4-8.2 gm/dl Albumin 3.7 3.4-5.0 gm/dl Lipase 463 73-393 U/L Ethyl Alcohol mg/dL 292.0 0-3 mg/dl Diagnostic Radiology CT abdomen: Cirrhosis, distended gallbladder US biliary: Distended gallbladder, no thickening or evidence of infection, no ductal dilitation Impression Assessment and Plan 51 y/o F hx Hepatitis C which was cured, pancreatitis, alcoholism and cirrhosis. The pt presented with upper quadrant abdominal pain, nausea and vomiting. She stated that some of her vomitus was blood streaked. She denies diarrhea or fevers. Denies CP or SOB. The pt was treated for pain in the ER and subjected to a CT abdomen and an ultrasound of the gallbladder. No acute findings were present and her pain and nausea gradually abated. Initial labs were notable for an ETOH level of 292, mildly elevated lipase and thrombocytopenia which is chronic. 1) Abdominal pain - has resolved presently - etiology is not clear. If this recurs we ngoc consider a GI consult. 2) Nausea and vomiting with blood streaking - she did not have varices on an EGD 2015. There is no evidence of significant bleeding. GI should be consulted if this recurs. 3) ETOH intoxication/withdrawal - provided Thiamine, Folate, IVF, benzodiazepines - states she would like to be admitted to a rehab facility after she is treated for acute withdrawal. 4) Cirrhosis - can f/u as outpt 5) Thrombocytopenia - platelet count has been stable over past few years - will trend CBC daily 6) Smoker - cessation advice provided although she does have more pressing issues at present. Full code - SCDs Total time for this admit including review of labs, meds, records, imaging - discussion with pt and ER attending - 38 min Resuscitation Status VTE Prophylaxis Will order VTE Prophylaxis: Yes
[2017-11-01 06:54] VITALS: BP 131/86; PULSE 79; TEMP 36.8; O2SAT 96; Ht 165.1 cm; Wt 63.7 kg
--- NOTE | 2017-11-01 07:13 | DIAGNOSTIC IMAGING REPORT ---
ULTRASOUND RIGHT UPPER QUADRANT ABDOMEN CLINICAL HISTORY: Epigastric abdominal pain. COMPARISON STUDY: Abdominal CT dated 10/16/2013. TECHNIQUE: Real-time, grayscale, and color flow sonography of the right upper quadrant of the abdomen was performed. Images are reviewed in the transverse and longitudinal planes. FINDINGS: Liver: The liver is enlarged, measuring over 19 cm in length. The liver demonstrates heterogeneously increased echotexture consistent with hepatic steatosis. Fatty sparing is seen adjacent to gallbladder fossa. There is no intrahepatic biliary ductal dilatation. The main portal vein is patent. Gallbladder: The gallbladder is distended. No gallstones are identified. There is no gallbladder wall thickening or pericholecystic fluid. A sonographic Pierce's sign is reportedly absent. The common bile duct measures up to 0.4 cm in diameter. Pancreas: Visualized portions of the pancreatic head and body are normal in appearance. Right kidney: Survey images of the right kidney demonstrate normal size and echotexture. There is no hydronephrosis. Ascites: There is trace perihepatic fluid. IMPRESSION: 1. Hepatomegaly and hepatic steatosis. 2. No gallstones are identified. 3. Trace perihepatic fluid is noted. Electronically signed by: Ismael Post M.D. 11/01/2017 7:12 AM Dictated Date/Time: 11/01/2017 7:06 AM
[2017-11-01] MEDS: CHLORDIAZEPOXIDE 25 MG CAP PO SCH ×3 (07:16→23:32)
[2017-11-01] MEDS ORDERED: MAGNESIUM SULFATE 1GM / D5W 1 GM in PREMIXED IN D5W 100 ML IV ONE (07:30)
--- NOTE | 2017-11-01 07:46 | DIAGNOSTIC IMAGING REPORT ---
CT SCAN OF THE ABDOMEN AND PELVIS WITH IV CONTRAST CLINICAL HISTORY: Epigastric abdominal pain. COMPARISON STUDY: Abdominal CT dated 10/16/2013. Abdominal ultrasound dated 11/01/2017. TECHNIQUE: Following the IV administration of 92 cc of Optiray 320, CT scan of the abdomen and pelvis is performed from the lung bases to the proximal femora. Images are reviewed in the axial, sagittal, and coronal planes. IV contrast was administered without complication. A dose lowering technique was utilized adhering to the principles of ALARA. CT DOSE: 289.29 mGy.cm FINDINGS: Lung bases: The heart is normal in size and without pericardial effusion. A calcified granuloma is seen in the right middle lobe. The lung bases are otherwise clear. Liver: The contrast-enhanced liver is enlarged, measuring 20.3 cm in length. The liver is cirrhotic in morphology and heterogeneous in attenuation. There is hypertrophy of the left lobe and nodularity of the surface contour. The liver demonstrates diffusely diminished attenuation consistent with hepatic steatosis. There is no intrahepatic biliary ductal dilatation. The hepatic veins and portal veins are patent. There are perigastric and perisplenic varices. Numerous omental collaterals are identified. Gallbladder: The gallbladder is distended. Gallbladder wall thickening is nonspecific and likely related to cirrhosis. Spleen: The spleen is mildly enlarged measuring 13.5 cm in length. Pancreas: Unremarkable. Adrenal glands: A 10 mm low-attenuation left adrenal nodule is unchanged dating back to 2013. Although incompletely characterized, this likely represents an adenoma. The right adrenal gland is unremarkable.. Kidneys: The contrast enhanced kidneys are normal in size and without hydronephrosis. The kidneys enhance symmetrically. Abdominal vasculature: The abdominal aorta is normal in course and caliber noting mild atherosclerotic calcification. Bowel: Mild wall thickening and hyperemia is suggested involving the distal stomach. The small bowel and colon are normal in course and caliber. The appendix is well-visualized and normal. Peritoneum: There is no intraperitoneal free air or abdominal ascites. Lymphadenopathy: Mildly enlarged lymph nodes in the dajuan hepatis are likely related to chronic liver disease. Pelvic viscera: The bladder, uterus, and adnexa are normal as visualized. Skeletal structures: The skeletal structures are osteopenic. Postoperative change is seen in the right acetabulum. No lytic or blastic lesions are seen. IMPRESSION: 1. The liver is enlarged, steatotic, and demonstrates change of cirrhosis. 2. There is evidence of portal hypertension including mild splenomegaly and upper abdominal varices/collaterals. 3. Mild wall thickening and mucosal hyperemia are suggested involving the stomach. Correlate clinically for evidence of gastritis. 4. The gallbladder is distended and gallbladder wall thickening is nonspecific, possibly related to chronic liver disease. Correlation with clinical findings and serum bilirubin levels will be required. 5. Enlarged lymph nodes in the dajuan hepatis are likely related to chronic liver disease. 6. Additional findings as above. Electronically signed by: Ismael Post M.D. 11/01/2017 7:26 AM Dictated Date/Time: 11/01/2017 7:06 AM
[2017-11-01 08:00] VITALS: BP 117/71; PULSE 75; TEMP 36.7; O2SAT 97
[2017-11-01] MEDS: POTASSIUM CHLR 10 MEQ / WTR 10 MEQ in PREMIXED WATER 100 ML IV SCH ×2 (08:12→09:23)
[2017-11-01] MEDS: D5NSS + 20MEQ KCL 1,000 ML IV SCH ×2 (08:12→20:34)
[2017-11-01 12:00] VITALS: BP 115/72; PULSE 70; TEMP 36.9; O2SAT 96
[2017-11-01] MEDS: PANTOprazole SOD 40 MG TAB PO SCH (12:16)
--- NOTE | 2017-11-01 14:34 | Hospitalist Progress Note ---
Hospitalist Progress Note Date of Service Nov 01, 2017. Subjective Pt evaluation today including: conversation w/ patient, physical exam, lab review, review of studies, review of inpatient medication list Voiding: no voiding problems Patient resting in bed. Angry that she is not receiving more Librium or Ativan at her request. Discussed protocol. No more abdominal pain, N/V. States she drinks roughly 1/5 of vodka daily. Patient denies any fever, chills, sweats, lightheadedness, dizziness, vision changes, CP, palpitations, edema, SOB, wheezing, cough, abdominal pain, nausea, vomiting, diarrhea, urinary symptoms, melena, numbness/tingling, weakness, muscle/joint pain, anxiety/depression, active bleeding, or new skin discoloration/changes. Medications Current Inpatient Medications Medications (Trade) Dose Ordered Sig/Bola Route Start Time Stop Time Status Last Admin Dose Admin Ioversol (Optiray 320) 100 ml UD PRN IV 11/01/17 03:15 11/05/17 03:14 Thiamine HCl 100 mg/Syringe 10 ml @ 2 mls/min QAM IV 11/02/17 09:00 12/02/17 08:59 Folic Acid 1 mg/ Syringe 10 ml @ 5 mls/min QAM IV 11/02/17 09:00 12/02/17 08:59 Al Hydrox/Mg Hydrox/Simethicone (Maalox Max Susp) 15 ml Q4H PRN PO 11/01/17 06:00 12/01/17 05:59 Magnesium Hydroxide (Milk Of Magnesia Susp) 30 ml Q12H PRN PO 11/01/17 06:00 12/01/17 05:59 Ondansetron HCl (Zofran Inj) 4 mg Q6H PRN IV 11/01/17 06:00 12/01/17 05:59 Polyethylene (Miralax Powder Packet) 17 gm DAILY PRN PO 11/01/17 06:00 12/01/17 05:59 Potassium Chloride/Dextrose/ Sod Cl 1,000 ml @ 100 mls/hr Q10H IV 11/01/17 08:00 11/02/17 13:59 11/01/17 08:12 100 MLS/HR Metoclopramide HCl (Reglan Inj) 5 mg Q8H PRN IV. 11/01/17 06:15 12/01/17 06:14 Lorazepam (Ativan Inj) 1 mg Q2H PRN IV 11/01/17 06:30 12/01/17 06:29 Lorazepam (Ativan Inj) 2 mg Q2H PRN IV 11/01/17 06:30 12/01/17 06:29 Chlordiazepoxide (Librium Cap) 25 mg Q8H PO 11/01/17 08:00 12/01/17 06:29 11/01/17 07:16 25 MG Lorazepam 1 mg/ Syringe 1 ml @ 1 mls/min Q2H PRN IV 11/01/17 06:30 12/01/17 06:29 Lorazepam 2 mg/ Syringe 2 ml @ 1 mls/min Q2H PRN IV 11/01/17 06:30 12/01/17 06:29 Pantoprazole Sodium (Protonix Tab) 40 mg QAM PO 11/01/17 09:00 11/04/17 09:01 11/01/17 12:16 40 MG Objective Vital Signs Date Time Temp Pulse Resp B/P (MAP) Pulse Ox O2 Delivery O2 Flow Rate FiO2 11/01/17 12:00 36.9 70 18 115/72 (86) 96 Nasal Cannula 2.0 11/01/17 12:00 Room Air 11/01/17 08:00 36.7 75 18 117/71 (86) 97 Nasal Cannula 2.0 11/01/17 06:54 36.8 79 20 131/86 96 Nasal Cannula 2.0 11/01/17 06:33 78 20 111/72 95 11/01/17 05:12 77 11/01/17 04:56 91 17 94 Nasal Cannula 2.0 11/01/17 04:54 102/75 11/01/17 04:51 124/81 11/01/17 04:26 88 19 96 Nasal Cannula 2.0 11/01/17 03:56 74 15 96 Nasal Cannula 2.0 11/01/17 03:26 83 23 98 Nasal Cannula 2.0 11/01/17 03:21 124/81 11/01/17 03:00 76 14 97 Nasal Cannula 2.0 11/01/17 02:59 97 Nasal Cannula 2.0 11/01/17 02:56 80 22 121/69 97 Nasal Cannula 2.0 11/01/17 02:27 95 Room Air 11/01/17 02:06 84 11/01/17 01:46 36.7 86 19 120/70 96 Room Air Physical Exam General Appearance: no apparent distress, + pertinent finding (smells of alcohol/tobacco ) Eyes: normal inspection, PERRL ENT: hearing grossly normal Neck: supple Respiratory/Chest: lungs clear, no respiratory distress, no accessory muscle use Cardiovascular: regular rate, rhythm Abdomen: normal bowel sounds, non tender, soft Extremities: no pedal edema, no calf tenderness Neurologic/Psychiatric: alert, normal mood/affect, oriented x 3 Skin: normal color, warm/dry, no rash Laboratory Results Last 24 Hours Test 11/01/17 02:00 11/01/17 02:20 11/01/17 10:00 11/01/17 11:27 White Blood Count 5.50 K/uL Red Blood Count 4.26 M/uL Hemoglobin 14.7 g/dL Hematocrit 41.9 % Mean Corpuscular Volume 98.4 fL Mean Corpuscular Hemoglobin 34.5 pg Mean Corpuscular Hemoglobin Concent 35.1 g/dl Platelet Count 65 K/uL Mean Platelet Volume 11.7 fL Neutrophils (%) (Auto) 41.1 % Lymphocytes (%) (Auto) 40.2 % Monocytes (%) (Auto) 16.0 % Eosinophils (%) (Auto) 1.8 % Basophils (%) (Auto) 0.7 % Neutrophils # (Auto) 2.26 K/uL Lymphocytes # (Auto) 2.21 K/uL Monocytes # (Auto) 0.88 K/uL Eosinophils # (Auto) 0.10 K/uL Basophils # (Auto) 0.04 K/uL RDW Standard Deviation 50.5 fL RDW Coefficient of Variation 14.1 % Immature Granulocyte % (Auto) 0.2 % Immature Granulocyte # (Auto) 0.01 K/uL Platelet Estimate DECREASED Large Platelets 1+ Prothrombin Time 11.4 SECONDS Prothromb Time International Ratio 1.1 Activated Partial Thromboplast Time 27.1 SECONDS Partial Thromboplastin Ratio 1.0 Sodium Level 147 mmol/L Potassium Level 3.3 mmol/L Chloride Level 112 mmol/L Carbon Dioxide Level 25 mmol/L Anion Gap 10.0 mmol/L Blood Urea Nitrogen 8 mg/dl Creatinine 0.60 mg/dl Est Creatinine Clear Calc Drug Dose 98.7 ml/min Estimated GFR () 121.5 Estimated GFR (Non- 104.8 BUN/Creatinine Ratio 12.7 Random Glucose 94 mg/dl Calcium Level 8.5 mg/dl Total Bilirubin 0.6 mg/dl Direct Bilirubin 0.2 mg/dl Aspartate Amino Transf (AST/SGOT) 99 U/L Alanine Aminotransferase (ALT/SGPT) 55 U/L Alkaline Phosphatase 103 U/L Total Protein 9.1 gm/dl Albumin 3.7 gm/dl Lipase 463 U/L Ethyl Alcohol mg/dL 292.0 mg/dl Urine Color YELLOW Urine Appearance CLEAR Urine pH 5.5 Urine Specific [place] 1.040 Urine Protein NEG Urine Glucose (UA) NEG Urine Ketones NEG Urine Occult Blood NEG Urine Nitrite NEG Urine Bilirubin NEG Urine Urobilinogen NEG Urine Leukocyte Esterase NEG Urine WBC (Auto) 1-5 /hpf Urine RBC (Auto) 0-4 /hpf Urine Hyaline Casts (Auto) 1-5 /lpf Urine Epithelial Cells (Auto) 20-30 /lpf Urine Bacteria (Auto) NEG Bedside Glucose 93 mg/dl Assessment and Plan 51 y/o F hx Hepatitis C which was cured, pancreatitis, alcoholism and cirrhosis. The pt presented with upper quadrant abdominal pain, nausea and vomiting. She stated that some of her vomitus was blood streaked. She denies diarrhea or fevers. Denies CP or SOB. The pt was treated for pain in the ER and subjected to a CT abdomen and an ultrasound of the gallbladder. No acute findings were present and her pain and nausea gradually abated. Initial labs were notable for an ETOH level of 292, mildly elevated lipase and thrombocytopenia which is chronic. Abdominal pain, ?gastritis vs alcohol use vs other- RESOLVED: - Admitted to [facility] for cardiac monitoring- no acute events - Protonix added - Alcohol withdrawal protocol - UA negative - Lipase mildly elevated - Gallbladder US unremarkable Nausea and vomiting with blood streaking, ?secondary to alcohol use- RESOLVED: - She did not have varices on an EGD 2015 - Follow H&H ETOH intoxication/withdrawal: - Alcohol withdrawal protocol - IV Thiamine, Folate, IVF, Ativan, Librium - Discussed rehab w/ patient- states she will set this up on her own and does not want help in doing so Hypokalemia: Replace w/ KCL supplement, follow PRP and replace PRN Cirrhosis, portal HTN, splenomegaly, upper abdominal varices: - Discussed alcohol cessation - Consider GI consultation inpatient if status worsens; otherwise outpatient f/ u Chronic thrombocytopenia- STABLE: Follow CBC Hepatitis C- cured with Harvoni Tobacco abuse: - Smoking cessation counselling - Nicotine patch offered- denied GI prophylaxis: Protonix daily DVT prophylaxis: SCDs; hold chemical anticoagulation due to thrombocytopenia Code status: LEVEL I, FULL Dispo: Likely discharge to home when medically stable- CM consulted
[2017-11-01 15:49] VITALS: BP 129/71; PULSE 70; TEMP 36.8; O2SAT 94
[2017-11-01 19:39] VITALS: BP 135/86; PULSE 75; TEMP 36.7; O2SAT 96
[2017-11-01 23:38] VITALS: BP 120/75; PULSE 70; TEMP 37.3; O2SAT 96
[2017-11-02 03:43] VITALS: BP 131/77; PULSE 62; TEMP 36.9; O2SAT 95
[2017-11-02] MEDS: D5NSS + 20MEQ KCL 1,000 ML IV SCH (05:25)
[2017-11-02 06:19] LABS: HEMATOCRIT 38.9 % (37-47); HEMOGLOBIN 13.2 g/dL (12.0-16.0); MEAN CELL VOLUME 100.5 fL (80-100); MEAN CORPUSCULAR HEMOGLOBIN 34.1 pg (25-34); MEAN CORPUSCULAR HGB CONC 33.9 g/dl (32-36); PLATELET COUNT 43 K/uL (130-400); RED CELL DISTRIBUTION WIDTH CV 13.7 % (11.5-14.5); RED CELL DISTRIBUTION WIDTH SD 50.2 fL (36.4-46.3)
[2017-11-02 06:22] LABS: CALCIUM 7.7 mg/dl (8.5-10.1); CREATININE 0.59 mg/dl (0.60-1.20); POTASSIUM 3.5 mmol/L (3.5-5.1)
[2017-11-02 08:03] VITALS: BP 122/64; PULSE 74; TEMP 36.8; O2SAT 99
[2017-11-02] MEDS: PANTOprazole SOD 40 MG TAB PO SCH (08:26)
[2017-11-02] MEDS: CHLORDIAZEPOXIDE 25 MG CAP PO SCH (08:28)
[2017-11-02] MEDS ORDERED: FoLIC ACID INJ 1 MG in SYRINGE 9.8 ML IV SCH (09:00)
[2017-11-02] MEDS ORDERED: THIAMINE HCL INJ 100 MG in SYRINGE 9 ML IV SCH (09:00)
[2017-11-02] MEDS ORDERED: THIA100T11 PO (09:58)
[2017-11-02] MEDS ORDERED: FLV1 PO (09:58)
[2017-11-02] MEDS ORDERED: PRT40 PO (09:58)
--- NOTE | 2017-11-02 10:06 | Discharge Instructions ---
Discharge Instructions Date of Service Nov 02, 2017. Admission Reason for Admission: Alcohol Intoxication, Alcohol Withdrawal Discharge Discharge Diagnosis / Problem: Alcohol intoxication Discharge Goals Goal(s): Decrease discomfort, Improve function, Increase independence, Improve disease control, Improve nutritional status, Learn about illness, Diagnostic testing, Therapeutic intervention, Prevent Disease Progression Activity Recommendations Activity Limitations: resume your previous activity . Instructions / Follow-Up Instructions / Follow-Up You were admitted to [facility] due to nausea, vomiting, and abdominal pain. This was likely caused by alcohol intoxication. It is HIGHLY RECOMMENDED YOU AVOID ALL ALCOHOL USE Folic acid and Thiamine supplement was added to your regimen as these levels can be low with chronic alcohol use. Protonix daily was added for possible gastritis (stomach inflammation)- this is likely due to chronic alcohol use. On CT scan, evidence of cirrhosis (liver scarring), portal hypertension (high blood pressure in vessels leading to liver), splenomegaly (enlarged spleen) all of which are caused from excessive alcohol use. Again, it is highly recommended you STOP ALL ALCOHOL USE. Additionally, it is recommended you keep follow-up with GI and PCP for these conditions. Resume all other regular home medications. FOLLOW-UPS: Please follow-up with your PCP within 2-3 days Follow-up with GI within 1 month Please follow-up/keep all of your subspecialty appointments Current Hospital Diet Patient's current hospital diet: AHA Diet (Heart Healthy) Discharge Diet Recommended Diet: AHA Diet (Heart Healthy) Pending Studies Studies pending at discharge: no Medical Emergencies . Who to Call and When: Medical Emergencies: If at any time you feel your situation is an emergency, please call 911 immediately. . Non-Emergent Contact Non-Emergency issues call your: Primary Care Provider Call Non-Emergent contact if: you have a fever, your pain is not controlled, your pain is worsening, your pain is unusual for you, your pain is concerning you, you have any medication questions . . "Provider Documentation" section prepared by Ketty Trevino. .
--- NOTE | 2017-11-02 10:16 | Discharge Summary ---
Discharge Summary Date of Service Nov 02, 2017. Discharge Summary Admission Date: Nov 01, 2017 at 06:08 Discharge Date: Nov 02, 2017 Discharge Disposition: Home Principal Diagnosis: Alcohol intoxication Problems/Secondary Diagnoses: Gastritis Nausea and vomiting with blood streaking ETOH intoxication/withdrawal Hypokalemia Cirrhosis portal HTN splenomegaly upper abdominal varices Chronic thrombocytopenia Hepatitis C- cured with Harvoni h/o of pancreatitis Tobacco abuse Immunizations: Have You Had Influenza Vaccine: Yes History of Tetanus Vaccine?: Yes Tetanus Immunization Date: Nov 17, 2007 History of Pneumococcal: No History of Hepatitis B Vaccine: Unknown Procedures: CT SCAN OF THE ABDOMEN AND PELVIS WITH IV CONTRAST CLINICAL HISTORY: Epigastric abdominal pain. COMPARISON STUDY: Abdominal CT dated 10/16/2013. Abdominal ultrasound dated 11/01/2017. TECHNIQUE: Following the IV administration of 92 cc of Optiray 320, CT scan of the abdomen and pelvis is performed from the lung bases to the proximal femora. Images are reviewed in the axial, sagittal, and coronal planes. IV contrast was administered without complication. A dose lowering technique was utilized adhering to the principles of ALARA. CT DOSE: 289.29 mGy.cm FINDINGS: Lung bases: The heart is normal in size and without pericardial effusion. A calcified granuloma is seen in the right middle lobe. The lung bases are otherwise clear. Liver: The contrast-enhanced liver is enlarged, measuring 20.3 cm in length. The liver is cirrhotic in morphology and heterogeneous in attenuation. There is hypertrophy of the left lobe and nodularity of the surface contour. The liver demonstrates diffusely diminished attenuation consistent with hepatic steatosis. There is no intrahepatic biliary ductal dilatation. The hepatic veins and portal veins are patent. There are perigastric and perisplenic varices. Numerous omental collaterals are identified. Gallbladder: The gallbladder is distended. Gallbladder wall thickening is nonspecific and likely related to cirrhosis. Spleen: The spleen is mildly enlarged measuring 13.5 cm in length. Pancreas: Unremarkable. Adrenal glands: A 10 mm low-attenuation left adrenal nodule is unchanged dating back to 2013. Although incompletely characterized, this likely represents an adenoma. The right adrenal gland is unremarkable.. Kidneys: The contrast enhanced kidneys are normal in size and without hydronephrosis. The kidneys enhance symmetrically. Abdominal vasculature: The abdominal aorta is normal in course and caliber noting mild atherosclerotic calcification. Bowel: Mild wall thickening and hyperemia is suggested involving the distal stomach. The small bowel and colon are normal in course and caliber. The appendix is well-visualized and normal. Peritoneum: There is no intraperitoneal free air or abdominal ascites. Lymphadenopathy: Mildly enlarged lymph nodes in the dajuan hepatis are likely related to chronic liver disease. Pelvic viscera: The bladder, uterus, and adnexa are normal as visualized. Skeletal structures: The skeletal structures are osteopenic. Postoperative change is seen in the right acetabulum. No lytic or blastic lesions are seen. IMPRESSION: 1. The liver is enlarged, steatotic, and demonstrates change of cirrhosis. 2. There is evidence of portal hypertension including mild splenomegaly and upper abdominal varices/collaterals. 3. Mild wall thickening and mucosal hyperemia are suggested involving the stomach. Correlate clinically for evidence of gastritis. 4. The gallbladder is distended and gallbladder wall thickening is nonspecific, possibly related to chronic liver disease. Correlation with clinical findings and serum bilirubin levels will be required. 5. Enlarged lymph nodes in the dajuan hepatis are likely related to chronic liver disease. 6. Additional findings as above. Electronically signed by: Ismael Post M.D. 11/01/2017 7:26 AM Dictated Date/Time: 11/01/2017 7:06 AM The status of this report is Signed. Draft = Not yet reviewed or approved by Radiologist. Signed = Reviewed and approved by Radiologist. ULTRASOUND RIGHT UPPER QUADRANT ABDOMEN CLINICAL HISTORY: Epigastric abdominal pain. COMPARISON STUDY: Abdominal CT dated 10/16/2013. TECHNIQUE: Real-time, grayscale, and color flow sonography of the right upper quadrant of the abdomen was performed. Images are reviewed in the transverse and longitudinal planes. FINDINGS: Liver: The liver is enlarged, measuring over 19 cm in length. The liver demonstrates heterogeneously increased echotexture consistent with hepatic steatosis. Fatty sparing is seen adjacent to gallbladder fossa. There is no intrahepatic biliary ductal dilatation. The main portal vein is patent. Gallbladder: The gallbladder is distended. No gallstones are identified. There is no gallbladder wall thickening or pericholecystic fluid. A sonographic Pierce's sign is reportedly absent. The common bile duct measures up to 0.4 cm in diameter. Pancreas: Visualized portions of the pancreatic head and body are normal in appearance. Right kidney: Survey images of the right kidney demonstrate normal size and echotexture. There is no hydronephrosis. Ascites: There is trace perihepatic fluid. IMPRESSION: 1. Hepatomegaly and hepatic steatosis. 2. No gallstones are identified. 3. Trace perihepatic fluid is noted. Electronically signed by: Ismael Post M.D. 11/01/2017 7:12 AM Dictated Date/Time: 11/01/2017 7:06 AM The status of this report is Signed. Draft = Not yet reviewed or approved by Radiologist. Signed = Reviewed and approved by Radiologist. Medication Reconciliation New Medications: Folic Acid (Folic Acid) 1 Mg Tab 1 MG PO DAILY for 30 Days, #30 TAB Thiamine Hcl (Vitamin B-1) 100 Mg Tab 100 MG PO DAILY for 30 Days, #30 TAB Pantoprazole (Pantoprazole Sodium) 40 Mg Tab 40 MG PO QAM for 30 Days, #30 TAB Continued Medications: Aspirin (Aspirin Ec) 81 Mg Tab 81 MG PO DAILY Referrals At Discharge Follow up Referrals: Data Model[facility] Referral - Within a Month with Hosea Vasquez D.O. Discharge Exam Review of Systems: Constitutional: No fever, No chills, No sweats, No weakness, No fatigue Eyes: No worsening of vision ENT: No hearing loss, No sore throat, No trouble swallowing Respiratory: No cough, No shortness of breath, No hemoptysis Cardiovascular: No chest pain, No edema, No palpitations Abdomen: No pain, No nausea, No vomiting, No diarrhea, No constipation, No GI bleeding Musculoskeletal: No joint pain, No muscle pain, No swelling, No calf pain Genitourinary - Female: No dysuria, No hematuria Neurologic: No memory loss, No weakness, No numbness/tingling Psychiatric: No depression symptoms, No anxiety, No insomnia Endocrine: No fatigue Hematologic / Lymphatic: No abnormal bleeding/bruising Integumentary: No rash, No itch, No new/changing skin lesions Physical Exam: General Appearance: no apparent distress Eyes: normal inspection, PERRL ENT: hearing grossly normal Neck: supple Respiratory/Chest: lungs clear, no respiratory distress, no accessory muscle use Cardiovascular: regular rate, rhythm Abdomen / GI: normal bowel sounds, non tender, soft Extremities: no calf tenderness, no pedal edema Neurologic/Psychiatric: alert, normal mood/affect, oriented x 3 Skin: normal color, warm/dry, no rash Hospital Course 51 y/o F hx Hepatitis C which was cured, pancreatitis, alcoholism and cirrhosis. The pt presented with upper quadrant abdominal pain, nausea and vomiting. She stated that some of her vomitus was blood streaked. She denies diarrhea or fevers. Denies CP or SOB. The pt was treated for pain in the ER and subjected to a CT abdomen and an ultrasound of the gallbladder. No acute findings were present and her pain and nausea gradually abated. Initial labs were notable for an ETOH level of 292, mildly elevated lipase and thrombocytopenia which is chronic. Abdominal pain, ?gastritis vs alcohol use vs other- RESOLVED: - Admitted to [facility] for cardiac monitoring- no acute events - Protonix added for gastritis - Alcohol withdrawal protocol- no s/s of alcohol withdrawal - UA negative - Lipase mildly elevated - Gallbladder US unremarkable Nausea and vomiting with blood streaking, ?secondary to alcohol use- RESOLVED: - She did not have varices on an EGD 2015 - Follow H&H- STABLE ETOH intoxication/withdrawal: - Alcohol withdrawal protocol- no s/s of alcohol withdrawal - IV Thiamine, Folate, IVF, Ativan, Librium- added Thiamine and Folic acid to daily regimen - Discussed alcohol cessation and risk with continue alcohol use - Discussed rehab/inpatient detox w/ patient- denied want to detox inpatient, denied wanting rehab, denied CM to assist in setting up outpatient/inpatient rehab/help Hypokalemia- RESOLVED: Replace w/ KCL supplement, follow PRP and replace PRN Cirrhosis, portal HTN, splenomegaly, upper abdominal varices: - Discussed alcohol cessation - Recommend GI f/u within 1 month Chronic thrombocytopenia- STABLE: Follow CBC Hepatitis C- cured with Harvoni h/o of pancreatitis- noted Tobacco abuse: - Smoking cessation counselling - Nicotine patch offered- denied GI prophylaxis: Protonix daily DVT prophylaxis: SCDs; hold chemical anticoagulation due to thrombocytopenia Code status: LEVEL I, FULL Dispo: Discharge to home High readmission rate likely due to patient denying need for alcohol cessation Total Time Spent: Greater than 30 minutes This includes examination of the patient, discharge planning, medication reconciliation, and communication with other providers. Discharge Instructions Please refer to the electronic Patient Visit Report (Discharge Instructions) for additional information. Follow-Up Please follow-up with your PCP within 5-7 days Please follow-up with GI within 1 month Please follow-up/keep all of your subspecialty appointments Additional Copies To Addis Zurita M.D.
[2017-11-02 10:29] VITALS: BP 122/64; PULSE 74; TEMP 36.8; O2SAT 99
== END 2017-11-02 11:27 | disposition home or self-care (01) | DRG 897 ==
LOC: C.EDB 01:43 → C.2T 06:08 → ENRESERV 06:29
PROVIDERS: ADMIT Internal Medicine; ATTEND Hospitalist
DX: F10.230 Alcohol dependence with withdrawal, uncomplicated (principal); K92.0 Hematemesis; K76.6 Portal hypertension; K70.30 Alcoholic cirrhosis of liver without ascites; F17.210 Nicotine dependence, cigarettes, uncomplicated; Z79.82 Long term (current) use of aspirin; D69.6 Thrombocytopenia, unspecified; K29.70 Gastritis, unspecified, without bleeding; E87.6 Hypokalemia; I86.8 Varicose veins of other specified sites; K76.0 Fatty (change of) liver, not elsewhere classified; Z86.19 Personal history of other infectious and parasitic diseases

== ENCOUNTER 2017-12-08 02:21 | Emergency (ER) | payer OTHER ==
[~2017-12-08] VITALS: Ht 165.1 cm; Wt 64.3 kg
[~2017-12-08 02:21] MED LIST changes: -ASPI325T39 PO; +ASPI81TA28 PO; +FLV1 PO; +PRT40 PO
[2017-12-08 02:27] VITALS: TEMP 36.8; Ht 165.1 cm; Wt 64.3 kg
[2017-12-08] MEDS ORDERED: MULTI-VITAMIN INFUSION INJ 10 ML, THIAMINE HCL INJ 100 MG, FoLIC ACID INJ 1 MG in SODIU... IV STA (02:55)
[2017-12-08] MEDS ORDERED: HYDROmorphone INJ 0.5 MG/0.5 ML SYR IV STA (02:58)
--- NOTE | 2017-12-08 03:02 | EMERGENCY ROOM VISIT NOTE ---
History Report prepared by Ivone: Wandy De Leon Under the Supervision of: Dr. Bertha Estrada D.O. First contact with patient: 02:33 Chief Complaint: ABDOMINAL PAIN Stated Complaint: VOMITING,ABDOMINAL PAIN,NOSE BLEED, History of Present Illness The patient is a 51 year old female who presents to the Emergency Room with complaints of worsening abdominal pain starting today. The patient states that this is similar to the abdominal pain that she had last time she was admitted to the hospital. She reports that the pain is right under her breasts. She states that the pain is worse when she breathes. The patient complains of vomiting, loss of appetite, and back pain. The patient points to her epigastric region of her abdomen as being significantly swollen. The patient notes that she has been an alcoholic for more than 30 years. She reports that she didn't quit drinking like she was supposed following her last hospital admission. She notes that she did have an appointment to go rehab, but did not go. She notes that she is a smoker. Source of History: patient Onset: today Position: abdomen Quality: other (previous episodes) Timing: worsening Modifying Factors (Worsening): breathing Associated Symptoms: + vomiting, + back pain Note: The patient complains of loss of appetite. The patient denies her abdomen being that swollen. Review of Systems See HPI for pertinent positives & negatives. A total of 10 systems reviewed and were otherwise negative. Past Medical & Surgical Medical Problems: (1) Alcohol abuse (2) Alcohol intoxication (3) Alcohol withdrawal delirium, acute, hyperactive (4) Cirrhosis of liver (5) Colitis (6) Gastritis (7) Gastritis due to alcohol without hemorrhage (8) Hepatitis, alcoholic (9) History of hepatitis C (10) Pancreatitis (11) Portal hypertension (12) Splenomegaly Family History FH: cancer FH: heart disease Social History Smoking Status: Current Every Day Smoker Alcohol Use: heavy Marital Status: Housing Status: lives with significant other Occupation Status: unemployed Current/Historical Medications Scheduled Aspirin (Aspirin Ec), 81 MG PO DAILY Allergies Coded Allergies: Codeine (Verified Adverse Reaction, Severe, upset stomach, 11/01/17) Physical Exam Vital Signs Date Time Temp Pulse Resp B/P (MAP) Pulse Ox O2 Delivery O2 Flow Rate FiO2 12/08/17 04:40 80 20 125/81 96 12/08/17 03:26 72 20 101/70 95 Room Air 12/08/17 03:15 78 12/08/17 02:27 36.8 95 18 111/76 94 Room Air Physical Exam General: Appears uncomfortable. Has a wet cough. HEENT: Head - normocephalic and atraumatic Pupils are equal, round, and reactive to light. Extraocular eye muscles are intact, and sclera are anicteric. Nose - moist nasal mucosa without discharge. Mouth - dry buccal mucosa. Oropharynx is nonerythematous and there is no tonsillar exudate or edema noted. Neck: Supple; no JVD, nuchal rigidity, cervical lymphadenopathy. Heart: Tachycardic rate and regular rhythm. There is a normal S1 and S2 with no murmurs, clicks, or gallops appreciated. Lungs: Clear to auscultation bilaterally with no wheezes, rales, or rhonchi. Abdomen: Epigastric fullness of abdomen. Diffusely tender, with good bowel sounds. There are no palpable pulsatile masses or hepatosplenomegaly. There is no guarding, rigidity, or rebound noted. Extremities: No evidence of cyanosis, clubbing, or edema. There are easily palpable peripheral pulses. Skin: warm and dry with good turgor and no rashes. Medical Decision & Procedures ER Provider Diagnostic Interpretation: Radiology results as stated below per my review and the radiologist's interpretation: CHEST X-RAY: The results were interpreted by me. No cardiomegaly. No pulmonary consolidation or signs of pneumonia. CT ABDOMEN & PELVIS With Contrast: Heterogenous and nodular liver, likely sequela of chronic hepatocellular disease. Hepatomegaly with fatty infiltration. Varices noted in the upper abdomen. No ascites. Davonte hepatis lymphadenopathy. Normal caliber abdominal aorta. Diverticulosis without evidence of diverticulitis. Normal appendix. No bowel obstruction. Segmental wall thickening of stomach may be due to incomplete distention or gastritis. No free air or fluid collection. Postsurgical changes in the right hip. Distended bladder. Radiologist: Josh Khan MD Study ready at 04:05 and initial results transmitted at 04:18. Laboratory Results 12/08/17 02:45 Red Blood Count 4.13, Mean Corpuscular Volume 98.8, Mean Corpuscular Hemoglobin 34.9, Mean Corpuscular Hemoglobin Concent 35.3, Mean Platelet Volume 12.4, Neutrophils (%) (Auto) 32.3, Lymphocytes (%) (Auto) 48.9, Monocytes (%) (Auto) 16.2, Eosinophils (%) (Auto) 1.8, Basophils (%) (Auto) 0.6, Neutrophils # (Auto ) 1.63, Lymphocytes # (Auto) 2.47, Monocytes # (Auto) 0.82, Eosinophils # (Auto ) 0.09, Basophils # (Auto) 0.03 12/08/17 02:45 Test 12/08/17 02:45 White Blood Count 5.05 K/uL (4.8-10.8) Red Blood Count 4.13 M/uL (4.2-5.4) Hemoglobin 14.4 g/dL (12.0-16.0) Hematocrit 40.8 % (37-47) Mean Corpuscular Volume 98.8 fL (80-100) Mean Corpuscular Hemoglobin 34.9 pg (25-34) Mean Corpuscular Hemoglobin Concent 35.3 g/dl (32-36) Platelet Count 44 K/uL (130-400) Mean Platelet Volume 12.4 fL (7.4-10.4) Neutrophils (%) (Auto) 32.3 % Lymphocytes (%) (Auto) 48.9 % Monocytes (%) (Auto) 16.2 % Eosinophils (%) (Auto) 1.8 % Basophils (%) (Auto) 0.6 % Neutrophils # (Auto) 1.63 K/uL (1.4-6.5) Lymphocytes # (Auto) 2.47 K/uL (1.2-3.4) Monocytes # (Auto) 0.82 K/uL (0.11-0.59) Eosinophils # (Auto) 0.09 K/uL (0-0.5) Basophils # (Auto) 0.03 K/uL (0-0.2) RDW Standard Deviation 49.6 fL (36.4-46.3) RDW Coefficient of Variation 13.8 % (11.5-14.5) Immature Granulocyte % (Auto) 0.2 % Immature Granulocyte # (Auto) 0.01 K/uL (0.00-0.02) Large Platelets 1+ Anion Gap 7.0 mmol/L (3-11) Est Creatinine Clear Calc Drug Dose 87.1 ml/min Estimated GFR () 116.6 Estimated GFR (Non- 100.6 BUN/Creatinine Ratio 11.8 (10-20) Calcium Level 8.6 mg/dl (8.5-10.1) Magnesium Level 1.9 mg/dl (1.8-2.4) Total Bilirubin 0.7 mg/dl (0.2-1) Direct Bilirubin 0.3 mg/dl (0-0.2) Aspartate Amino Transf (AST/SGOT) 196 U/L (15-37) Alanine Aminotransferase (ALT/SGPT) 84 U/L (12-78) Alkaline Phosphatase 104 U/L (45-117) Troponin I < 0.015 ng/ml (0-0.045) Pro-B-Type Natriuretic Peptide 70 pg/ml (0-900) Total Protein 8.7 gm/dl (6.4-8.2) Albumin 3.5 gm/dl (3.4-5.0) Lipase 624 U/L (73-393) Laboratory results per my review. Medications Administered Medications (Trade) Dose Ordered Sig/Bola Route Start Time Stop Time Status Last Admin Dose Admin Multivitamins 10 ml/Thiamine HCl 100 mg/Folic Acid 1 mg/Sodium Chloride 1,011.2 ml @ 250 mls/ hr Q4H3M STAT IV 12/08/17 02:55 12/08/17 06:57 12/08/17 03:20 250 MLS/HR Hydromorphone HCl (Dilaudid Inj) 0.5 mg NOW STAT IV 12/08/17 02:58 12/08/17 02:59 DC 12/08/17 03:19 0.5 MG Procedure 0255: Ordered Multivitamins 10 ml/ Thiamine HCl 100 mg/ Folic Acid 1 mg. Sodium Chloride 1011.2 ml @ 250 mls/hr IV. 0258: Ordered Dilaudid Inj 0.5 mg IV. ECG Per My Interpretation Indication: abdominal pain Rate (beats per minute): 90 Rhythm: normal sinus Findings: no acute ischemic change, no ectopy, other (no ST segment changes) ED Course 0245: Past medical records reviewed. The patient was evaluated in room A12B. A complete history and physical exam was performed. An IV lock was initiated and labs are drawn as above. A 12-lead EKG was obtained as described above. 0255: Ordered Multivitamins 10 ml/ Thiamine HCl 100 mg/ Folic Acid 1 mg. Sodium Chloride 1011.2 ml @ 250 mls/hr IV. 0258: Ordered Dilaudid Inj 0.5 mg IV. 0423: Upon reevaluation, the patient is feeling better and would like to drink something. I discussed findings and results with her. I had an extensive conversation with her and her about the risks of pancreatitis including . I strongly encouraged the patient to go to a rehab facility for detox and rehab. She verbalized agreement of the treatment plan. She tells me that she has all of those phone numbers available at home and will call. The patient was discharged home. Medical Decision The patient is a 51 year old female who presents to the Emergency Room with complaints of worsening abdominal pain starting today. Differential diagnoses include alcohol withdrawal, pancreatitis, SBP, ascites, cholecystitis. LABS: Normal white count Stable H&H Lipase 624 AST 196 ALT 84 Direct bilirubin 0.3 Normal renal function Negative troponin This is a 51-year-old female patient with a history of alcohol abuse over the last 40 years. The patient had a history of hepatitis C which was cured using Harvoni. The patient presents with epigastric fullness and increased abdominal pain, nausea and vomiting. She states that she is unable to keep anything down. The patient had a very similar presentation earlier this year. CT scan shows no evidence of acute pancreatitis. She has no ascites. She is anxious to drink fluids here in the emergency department. She had no further vomiting. I have strongly encouraged the patient to follow-up with her PCP with regards to taking folic acid and to go to rehab. I have asked the patient to return to the emergency department for worsening symptoms such as inability to eat/drink, fevers, or intractable vomiting. Medication Reconcilliation Current Medication List: was personally reviewed by me Blood Pressure Screening Patient's blood pressure: Normal blood pressure Blood pressure disposition: Did not require urgent referral Impression Primary Impression: Epigastric abdominal pain Additional Impressions: Nausea & vomiting Alcohol abuse Scribe Attestation The scribe's documentation has been prepared under my direction and personally reviewed by me in its entirety. I confirm that the note above accurately reflects all work, treatment, procedures, and medical decision making performed by me. Departure Information Dispostion Home / Self-Care Referrals RV. Guillen MD (PCP) Forms Call Back Authorization, HOME CARE DOCUMENTATION FORM, IMPORTANT VISIT INFORMATION Patient Instructions [facility] Additional Instructions You need to go to a rehab facility for detox and rehab from [facility]. Return to the ER if your condition worsens Problem Qualifiers Additional Impressions: Nausea & vomiting Vomiting type: unspecified Vomiting Intractability: non-intractable Qualified Codes: R11.2 - Nausea with vomiting, unspecified
[2017-12-08 03:20] LABS: HEMATOCRIT 40.8 % (37-47); HEMOGLOBIN 14.4 g/dL (12.0-16.0); MEAN CELL VOLUME 98.8 fL (80-100); MEAN CORPUSCULAR HEMOGLOBIN 34.9 pg (25-34); MEAN CORPUSCULAR HGB CONC 35.3 g/dl (32-36); MEAN PLATELET VOLUME 12.4 fL (7.4-10.4); PLATELET COUNT 44 K/uL (130-400); RED CELL DISTRIBUTION WIDTH CV 13.8 % (11.5-14.5); RED CELL DISTRIBUTION WIDTH SD 49.6 fL (36.4-46.3); WHITE BLOOD COUNT 5.05 K/uL (4.8-10.8)
[2017-12-08 03:25] LABS: ALBUMIN 3.5 gm/dl (3.4-5.0); ALT/SGPT 84 U/L (12-78); AST/SGOT 196 U/L (15-37); BLOOD UREA NITROGEN 8 mg/dl (7-18); CALCIUM 8.6 mg/dl (8.5-10.1); CARBON DIOXIDE 26 mmol/L (21-32); CREATININE 0.68 mg/dl (0.60-1.20); GLUCOSE 90 mg/dl (70-99); LIPASE 624 U/L (73-393); POTASSIUM 3.4 mmol/L (3.5-5.1); SODIUM 143 mmol/L (136-145)
[2017-12-08 03:26] LABS: BASO % 0.6 %; BASO ABS # 0.03 K/uL (0-0.2); EOS % 1.8 %; EOS ABS # 0.09 K/uL (0-0.5); IG# 0.01 K/uL (0.00-0.02); LYMPH % 48.9 %; LYMPH ABS # 2.47 K/uL (1.2-3.4); MONO % 16.2 %; MONO ABS # 0.82 K/uL (0.11-0.59); NEUT % 32.3 %; NEUT ABS # 1.63 K/uL (1.4-6.5)
[2017-12-08 03:31] LABS: ALKALINE PHOSPHATASE 104 U/L (45-117); TOTAL PROTEIN 8.7 gm/dl (6.4-8.2)
[2017-12-08] MEDS ORDERED: OPTIRAY 320 IV PRN (04:00)
[2017-12-08 04:40] VITALS: BP 125/81; PULSE 80; O2SAT 96
--- NOTE | 2017-12-08 06:46 | DIAGNOSTIC IMAGING REPORT ---
ABD/PELVIS IV CONTRAST ONLY CT DOSE: 265.95 mGy.cm HISTORY: Pain. Nausea. eval for pancreatitis and ascites TECHNIQUE: Multiaxial CT images of the abdomen and pelvis were performed following the use of intravenous contrast. A dose lowering technique was utilized adhering to the principles of ALARA. COMPARISON STUDY: 11/01/2017 FINDINGS: Lung bases are clear. Cirrhotic enlarged liver. Spleen is unremarkable. Kidneys are negative for hydronephrosis. Several nonspecific upper abdominal nodes as well as upper abdominal varices are present. Nonobstructive bowel pattern. Bladder is midline. No free fluid within the pelvic cul-de-sac. No significant ascites. Mild gastric wall thickening possibly technical. Stable postoperative reconstructive changes posterior right acetabulum. IMPRESSION: 1. Hepatic cirrhosis. Mild stable hepatomegaly. 2. Nonobstructive bowel pattern. 3. Mild gastric wall thickening versus technical lack of distention. The above report was generated using voice recognition software. It may contain grammatical, syntax or spelling errors. Electronically signed by: Bertram Fuchs M.D. 12/08/2017 6:44 AM Dictated Date/Time: 12/08/2017 6:41 AM
--- NOTE | 2017-12-08 06:54 | DIAGNOSTIC IMAGING REPORT ---
CHEST ONE VIEW PORTABLE CLINICAL HISTORY: cough dyspnea COMPARISON STUDY: 01/06/2017 FINDINGS: The bones soft tissues and hemidiaphragms are normal. The cardiomediastinal silhouette is normal. The lungs are clear. The pulmonary vasculature is normal. IMPRESSION: Negative chest. The above report was generated using voice recognition software. It may contain grammatical, syntax or spelling errors. Electronically signed by: Bertram Fuchs M.D. 12/08/2017 6:52 AM Dictated Date/Time: 12/08/2017 6:52 AM
== END 2017-12-08 04:41 | disposition home or self-care (01) ==
LOC: C.EDB 02:22 → C.EDA 04:41
DX: R10.13 Epigastric pain (principal); R11.2 Nausea with vomiting, unspecified; F10.10 Alcohol abuse, uncomplicated; K74.60 Unspecified cirrhosis of liver; F17.200 Nicotine dependence, unspecified, uncomplicated; Z79.82 Long term (current) use of aspirin; Z88.5 Allergy status to narcotic agent

== ENCOUNTER 2019-01-08 17:35 | Inpatient (IN) ==
--- OUTSIDE RECORDS SUMMARY | 2019-01-08 17:38 | External Medical Summary | Continuity of Care Document ---
:1965 Author Name Chaz Oseguera, Provider Address Unavailable Unavailable , Care Team Providers Name Role Phone Unavailable Unavailable Unavailable Daniele GONGORA, Zuleika Unavailable [email or web address] Case DO, Hosea G. Unavailable [email or web address] KELBY JACKSON M.D., V Unavailable Unavailab le Unavailable Unavailable Unavailable Problems History of acute pancreatitis (V12.79) (Z87.19) Status: Resolved Encounter for routine gynecological examination (V72.31) (Z0 1.419) Encounter for screening for lipoid disorders (V77.91) (Z13.2 20) History of acute gastritis (V12.70) (Z87.19) Status: Resolved Tobacco use (305.1) (Z72.0) Anxiety (300.00) (F41.9) Elevated AST (SGOT) (790.4) (R74.0) Pancreatic disorder (577.9) (K86.9) Thrombocytopenia (287.5) (D69.6) Easy bruising (782.9) (R23.8) History of alcoholism (V11.3) (F10.21) S tatus: Resolved Nicotine dependence (305.1) (F17.200) Breast cancer screening (V76.10) (Z12.31) Cervical cancer screening (V76.2) (Z12.4) Colon cancer screening (V76.51) (Z12.11) Pulmonary emphysema (492.8) (J43.9) Immune to hepatitis B (V49.89) (Z78.9) Gallbladder disease (575.9) (K82.9) Portal hypertension (572.3) (K76.6) History of Hepatitis C virus infection without hepatic coma (070.70) (B19.20) Status: Resolved Abdominal pain of multiple sites (789.09) (R10.9) Alcoholism, chronic (303.90) (F10.20) Laennec's cirrhosis (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 ROLAN Neely Start: 20-Jan-2018 Quantity: 30 Refills: 5 Procedures History of Hip Surgery Status: Completed History of Nose Surgery Status: Complete d History of Tubal Ligation Status: Comple tio Immunizations Hepatitis A On: 16-Feb-2013 11:05 Lot #: [id number], [employer] HAV, HBV (Twinrix) 1 On: 10-Sep-2013 11:25 Lot #: [id number], [employer] Hep B (Recombinant) On: 11-May-2016 Hep B (Recombinant) On: 10-Jun-2016 16:09 Lot #: [id number], [employer] Family History Mother Family history of Cancer Status: Active Family history of Mother At Age ___ Status: Active Family history of Cervical Cancer Status: Active Father Family history of Coronary Artery Disease (V17.49) Status: A ctive Family history of Father At Age ___ Status: Active Brother Family history of Alcoholism Status: Active Family history of Suicide Completion Status: Active Social History - Smoking Status Smoker. current status unknown Plan of Treatment Planned Observations Planned Goals not documented Results No Known Results Results not documented Encounters Appointment; Blaine Guillen M.D. 8:20 Encounter Diagnosis: Problem not documented Appointment; Hosea Vasquez DO 17-Jan-2018 14:30 Encounter Diagnosis: Problem not documented Appointment; Blaine Guillen M.D. 30-Aug-2017 9:40 Encounter Diagnosis: Problem not documented Appointment; Blaine Guillen M.D. 7 9:00 Encounter Diagnosis: Problem not documented
[2019-01-08] MEDS ORDERED: SODIUM CHLORIDE 0.9% 1000ML 1,000 ML IV SCH (18:15)
[2019-01-08] MEDS ORDERED: LORazepam 2 MG/4 ML VIAL IV STA (18:42)
[2019-01-08 19:14] LABS: INR 1.3 (0.9-1.1); Prothrombin Time 13.4 Seconds (9.0-12.0)
[2019-01-08 19:27] LABS: Albumin Level 3.1 gm/dl (3.4-5.0); BUN Creatinine Ratio 11.3 (10-20); Calcium 8.6 mg/dl (8.5-10.1); Creatinine Clr Calc Pharmacy 94.9 ml/min; Est GFR (African American) 119.1; Est GFR (Non-African American) 102.8; Magnesium 1.6 mg/dl (1.8-2.4)
[2019-01-08] MEDS ORDERED: MULTI-VITAMIN INFUSION 10 ML, THIAMINE HCL 100 MG, FOLIC ACID 1 MG in SODIUM CHLORIDE 0... IV SCH (19:30)
[2019-01-08 19:37] LABS: Hematocrit (blood only) 39.9 % (37-47); Hemoglobin 14.5 g/dL (12.0-16.0); Mean Corpuscular Hgb Conc 36.3 g/dL (32-36); Mean Corpuscular Volume 97.6 fL (80-100); Mean Platelet Volume 13.1 fL (7.4-10.4); Platelet Count 30 K/uL (130-400); RDW Coefficient of Variation 13.7 % (11.5-14.5); RDW Standard Deviation 48.9 fL (36.4-46.3); Red Blood Count 4.09 M/uL (4.2-5.4); White Blood Count 4.66 K/uL (4.8-10.8)
[2019-01-08 19:38] LABS: Albumin Globulin Ratio 0.6 (0.9-2); Basophils # (auto) 0.03 K/uL (0-0.2); Basophils % (auto) 0.6 %; Bilirubin,Total 2.9 mg/dl (0.2-1); Eosinophils # (auto) 0.08 K/uL (0-0.5); Eosinophils % (auto) 1.7 %; Immature Granulocytes # (auto) 0.01 K/uL (0.00-0.02); Immature Granulocytes % (auto) 0.2 %; Lymphocytes # (auto) 0.96 K/uL (1.2-3.4); Lymphocytes % (auto) 20.6 %; Monocytes # (auto) 1.35 K/uL (0.11-0.59); Neutrophils # (auto) 2.23 K/uL (1.4-6.5); Neutrophils % (auto) 47.9 %; Platelet Estimate SIGNIFIC DECREASED (Normal); Total Protein 8.1 gm/dl (6.4-8.2)
[2019-01-08] MEDS ORDERED: GABAPENTIN 1200MG ALCOHOL WITHDRAWAL LOAD PO STA (23:50)
[2019-01-08] MEDS ORDERED: GABAPENTIN 600 MG TAB PO ONE (23:50)
[2019-01-08] MEDS ORDERED: ALUMINUM/MAGNESIUM SUSP 30 ML UDC PO PRN (23:50)
[2019-01-08] MEDS ORDERED: POTASSIUM CHLORIDE 20 MEQ TABCR PO STA (23:50)
[2019-01-08] MEDS ORDERED: NITROGLYCERIN SL 0.4 MG/TAB TAB SL PRN (23:50)
[2019-01-08] MEDS ORDERED: ALBUTEROL HFA 8 GM INHALER INH PRN (23:50)
--- NOTE | 2019-01-09 00:14 | History and Physical Report ---
DATE OF ADMISSION: 01/08/2019 CHIEF COMPLAINT: Alcoholism and request for detoxification. HISTORY OF PRESENT ILLNESS: This 53-year-old female with past medical history significant for chronic alcoholism, liver cirrhosis secondary to alcoholism, history of hepatitis C treated, virus undetectable, history of tobacco abuse, COPD, portal hypertension, history of gastritis, history of pancreatitis, depression with anxiety and history of hematemesis, thrombocytopenia, presents for alcohol detox request. Patient was seen by GI today. She was trying to cut back on her alcoholism. She usually drinks one pint of bourbon every day.Yesterday, she was shaky and she took one bottle of beer and she went to see GI today. She was in [facility] years ago and also a few months ago she checked in herself again, but as she was not seen for 6 hours she left. She states if she stops drinking alcohol, she gets stressed and sometimes she gets shaky and anxious and again she starts drinking. GI asked her to get admitted to hospital for detoxification and they want to follow as outpatient when she gets discharged from the hospital. The patient was treated for hepatitis C with Harvoni for 12 weeks, last viral load in 10/2006 was not detectable. 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 The patient says last night, she had epistaxis, but that stopped, had some headache, she get dizzy when she stands up and she gets wobbly when ambulating. Denies any sore throat, difficulty swallowing. Appetite is not that great. Denies any chest pain, no shortness of breath, has some nausea and abdominal pain. Nausea is constant. The abdominal pain is on and off in the epigastric region, but it subsides by its own. Normal bowel and bladder movements. No blood in her stools or no hematuria. No swelling of the legs. Currently resting comfortably and hemodynamically stable, alert and oriented. in the room. ALLERGIES: CODEINE. PAST MEDICAL HISTORY: As mentioned above. PAST SURGICAL HISTORY: Colonoscopy, EGD with endoscopic ultrasound, ligation of oviduct, right total hip arthroplasty, right total hip replacement. MEDICATIONS: The patient is on albuterol 2 puffs q. 4-6 hours p.r.n., Breo Ellipta inhalation daily, Incruse 1 inhalation daily. FAMILY HISTORY: Significant for father alcoholism. Mother had cervical cancer. Father had mental disorder. SOCIAL HISTORY: Lives with her , smokes 1 pack a day for last 30 years. Alcohol, drinks 1 pint of [place] daily for 40 years. No drug use. REVIEW OF SYMPTOMS: As per HPI. Rest of review of systems negative. PHYSICAL EXAMINATION: GENERAL: The patient is of moderate build, not in acute distress. VITAL SIGNS: Temperature 37, pulse 86, respiratory rate 18, blood pressure 105/60, oxygen 96% on room air. HEENT: No pallor, no icterus. Pupils equal, round and reactive to light. NECK: Supple, no neck masses. CARDIOVASCULAR: S1, S2 heard, regular rate and rhythm, no murmur. RESPIRATORY SYSTEM: Normal AP diameter. No accessory muscle use. No wheezing, no crackles. ABDOMEN: Soft, bowel sounds present. Diffuse tenderness with mild guarding, no rigidity. CENTRAL NERVOUS SYSTEM: Cranial nerves II through XII intact. Nonfocal. EXTREMITIES: No edema, no erythema. LABS: WBC 4.6, hemoglobin 14.5, hematocrit 39.9, platelets 30. PT 13.4, INR 1.3. Sodium 135, potassium 3, chloride 102, bicarb 27, BUN 7, creatinine 0.6, serum glucose 93, calcium 8.6, magnesium 1.6, total bilirubin 2.9, AST 155, ALT 64, alkaline phosphatase is 126, total protein 8.1, TSH 2.3. Ethyl alcohol less than 3. ASSESSMENT AND PLAN: This is a 53-year-old female who presents with requests for alcohol detoxification. 1. Alcoholism, drinks 1 pint of [place] every day . Drinking alcohol for last 40 years, trying to quit, request for detoxification. She was in the [employer] long time back and recently 6-month ago tried to go to [employer], but came back because no one saw her for 6 hours. Currently, the patient is alert and oriented. Last drink was yesterday. Alcohol level is less than 3. We will place her on gabapentin withdrawal protocol, IV Ativan p.r.n., banana bag today and from tomorrow IV thiamine daily, IV folic acid daily, multivitamin p.o. daily and closely monitor. We will add clonidine if her heart rate or blood pressure goes up. 2. Electrolyte abnormalities with hypokalemia and hypomagnesemia. We will replace and follow the labs in a.m. 3. Elevated total bilirubin, elevated AST and alkaline phosphatase mostly from alcoholism. We will follow the liver ultrasound and follow labs in am. 4. Leukopenia and thrombocytopenia, mostly from alcoholism. Platelets are low as 30. Could be from acute bone depression from acute alcoholism on liver cirrhosis. We will follow the labs daily for any recovery. 5. Liver cirrhosis from alcoholism. Currently, no volume overload. Follow labs.Followup with GI after discharge.On gentle fluids. We will monitor for volume overload. 6. Abdominal pain, mostly from gastritis. We will check lipase and place on IV Pepcid b.i.d. We will monitor. 7. History of chronic obstructive pulmonary disease, tobacco abuse, nicotine patch. Continue home inhalers, currently stable. 8. History of hepatitis C status post treatment with Harvoni. 9. Deep venous thrombosis prophylaxis, sequential compression devices for now. 10. Disposition: Closely monitor in the med/surg tele. Level 1 full code. Social Service to help with discharge planning. [facility]
[2019-01-09] MEDS ORDERED: MULTI-VITAMIN INFUSION 10 ML, THIAMINE HCL 100 MG, FOLIC ACID 1 MG in SODIUM CHLORIDE 0... IV SCH (00:15)
[2019-01-09] MEDS: LORazepam 1.5 MG/3 ML VIAL IV PRN ×6 (00:31→22:44)
--- NOTE | 2019-01-09 00:33 | Emergency Department Note ---
Entered by Destini Lewis acting as a scribe for History of Present Illness General Chief complaint: Detox Request Stated complaint: sent for admission Source: patient Mode of arrival: ambulatory Limitations: no limitations History of Present Illness Onset (ago): day(s) 1 Location: head Radiation: non-radiation Pain Consistency: + constant Maximum Pain Intensity: 8 Relieved By: + none Exacerbated By: + other (not drinking alcohol) Associated symptoms: + nausea/vomiting and + other (+abdominal pain, +shakiness) Treatments prior to arrival: none The patient is a 53 year old female who presents to the ED with complaints of a detox request. She is an alcoholic and states she last drank a beer yesterday morning. She normally drinks about 1 pint of [place] a day. She states she does not find any pleasure in drinking alcohol any more, but does it for self- medication. The patient complains of shakiness, nausea and abdominal pain. She admits to a history of cirrhosis and emphysema, both of which she states were found on a CT scan last month. She did recently quit smoking and is using a nicotine patch. The patient reports she has tried inpatient rehab in the past, at [facility], but reports she was unhappy with the care she received there and does not want to go back. She was referred here to the ED by STEPHENIE Echeverria of [facility]. Home Medications Home Medications Medication Instructions Recorded Confirmed Type albuterol sulfate 2 puff INHALATION Q6H PRN 01/08/19 01/08/19 History fluticasone furoate-vilanterol 1 inh INHALATION DAILY 01/08/19 01/08/19 History [Breo Ellipta] umeclidinium [Incruse Ellipta] 1 inh INHALATION DAILY 01/08/19 01/08/19 History Allergies Allergy/AdvReac Type Severity Reaction Status Date / Time codeine AdvReac Severe upset Verified 11/01/17 03:02 stomach Past Med/Surg History Medical History Cirrhosis of liver (Chronic 11/21/12) Hepatitis, alcoholic (Chronic 11/21/12) Alcohol abuse (Chronic) Alcohol abuse (Acute) Family History Other Family history non-contributory Social History Preferred Language: Belarusian Communication Ability: Effective Grid Maker Required: No Beliefs That Will Affect Care: None Current Living Situation: Spouse Feels Safe at Home: Yes Safety Concerns: Feels Safe At This Time Smoking Status: Current every day smoker Tobacco Type: cigarettes Cigarettes Per Day: 1/2 ppd Hx Alcohol Use: Yes Alcohol type: beer Hx Substance Use: Yes substance use type: marijuana Last Used Substance Other:: last month Review of Systems See HPI for pertinent positives & negatives. and A total of 10 systems reviewed and were otherwise negative Physical Exam Vital Signs Vital Signs - 24 hr 01/08/19 17:37 01/08/19 18:15 01/08/19 18:42 Temperature 37 C Temperature Source Oral Sepsis Recent Fever Within 48 Hours No Sepsis New/Unexplained Change in Mental Status No Sepsis Action Taken by Nursing No Action Required Pulse Rate 98 H 82 80 Pulse Rate [Apical] Pulse Rhythm Regular Pulse Rhythm [Apical] Respiratory Rate 18 18 19 Respiratory Effort / Characteristics Respiratory Depth Respiratory Pattern Blood Pressure 137/78 141/93 H Blood Pressure [Right Arm] Blood Pressure Mean 97 109 Blood Pressure Mean [Right Arm] Blood Pressure Position [Right Arm] Pulse Oximetry 99 98 Oxygen Delivery Method Room Air Room Air 01/08/19 18:49 01/08/19 19:00 01/08/19 19:52 Temperature Temperature Source Sepsis Recent Fever Within 48 Hours Sepsis New/Unexplained Change in Mental Status Sepsis Action Taken by Nursing Pulse Rate 79 80 Pulse Rate [Apical] 86 Pulse Rhythm Pulse Rhythm [Apical] Regular Respiratory Rate 19 14 18 Respiratory Effort / Characteristics Non-Labored Spontaneous Respiratory Depth Normal Respiratory Pattern Regular Blood Pressure Blood Pressure [Right Arm] 105/69 Blood Pressure Mean Blood Pressure Mean [Right Arm] 81 Blood Pressure Position [Right Arm] Lying Pulse Oximetry 96 Oxygen Delivery Method Room Air 01/08/19 22:00 Temperature Temperature Source Sepsis Recent Fever Within 48 Hours Sepsis New/Unexplained Change in Mental Status Sepsis Action Taken by Nursing Pulse Rate Pulse Rate [Apical] 96 H Pulse Rhythm Pulse Rhythm [Apical] Regular Respiratory Rate 17 Respiratory Effort / Characteristics Non-Labored Spontaneous Respiratory Depth Normal Respiratory Pattern Regular Blood Pressure Blood Pressure [Right Arm] 109/78 Blood Pressure Mean Blood Pressure Mean [Right Arm] 88 Blood Pressure Position [Right Arm] Sitting Pulse Oximetry 96 Oxygen Delivery Method Room Air Vital signs reviewed. General: Anxious appearing 53 year old, with generalized tremor. HEENT: No scleral icterus, PERRLA, neck supple. Atraumatic. Cardiovascular: Regular rate and rhythm, no extra sounds. Pulmonary: Clear to auscultation bilaterally, normal work of breathing. Abdomen: Soft, nontender, nondistended, positive bowel sounds. Musculoskeletal: Atraumatic, no peripheral edema. Neurologic: Patient awake alert and oriented x 3, full strength in all 4 extremities. Cranial nerves 2 through 12 grossly intact. Skin: Warm, dry, no rash Course 1840: The patient was evaluated in room C4 and a complete history and physical were performed. 2008: [facility] The patient will be further evaluated. 2014: I reevaluated the patient. She is requesting more Ativan. I discussed my recommendation she remain in the hospital for further evaluation and management and she verbalized complete understanding and agreement. Consultations Consultation #1: I discussed the patients case with Prerna Beckwith. The patient will be further evaluated. Time: 20:09 Administered Medications Chlordiazepoxide HCl (Librium) 10 mg PO BID ON LICENSE OF [facility] Stop: 02/10/19 10:14 Last Admin: 01/11/19 10:31 Dose: 10 mg Documented by: [id number] Folic Acid (Folvite) 1 mg PO QAM ON LICENSE OF [facility] Stop: 02/10/19 08:59 Last Admin: 01/11/19 08:19 Dose: 1 mg Documented by: [id number] Lorazepam (Ativan) 1 mg in 2 mls @ 2 mls/min IV UD PRN; Protocol PRN Reason: EtOH Withdrawl AWSS Score 6,7 Stop: 02/10/19 01:31 Last Admin: 01/11/19 08:13 Dose: 2 mls/min Documented by: [id number] Lorazepam (Ativan) 2 mg in 4 mls @ 4 mls/min IV UD PRN; Protocol PRN Reason: EtOH Withdrawl AWSS Score 8,9 Stop: 02/10/19 01:31 Last Admin: 01/11/19 14:50 Dose: 4 mls/min Documented by: [id number] Admin: 01/11/19 10:18 Dose: 4 mls/min Documented by: [id number] Admin: 01/11/19 03:00 Dose: 4 mls/min Documented by: [id number] Admin: 01/11/19 01:55 Dose: 4 mls/min Documented by: [id number] Miscellaneous (Order Awaiting Action) 1 ea N/A QS ON LICENSE OF [facility] Stop: 02/08/19 07:59 Last Admin: 01/11/19 14:50 Dose: Not Given Documented by: [id number] Admin: 01/11/19 08:13 Dose: Not Given Documented by: [id number] Admin: 01/10/19 23:23 Dose: Not Given Documented by: [id number] Admin: 01/10/19 15:25 Dose: Not Given Documented by: [id number] Admin: 01/10/19 07:40 Dose: Not Given Documented by: [id number] Admin: 01/09/19 23:31 Dose: Not Given Documented by: [id number] Admin: 01/09/19 15:02 Dose: Not Given Documented by: [id number] Admin: 01/09/19 07:00 Dose: Not Given Documented by: [id number] Miscellaneous (Order Awaiting Action) 1 ea N/A QS ON LICENSE OF [facility] Stop: 02/08/19 07:59 Last Admin: 01/11/19 14:51 Dose: Not Given Documented by: [id number] Admin: 01/11/19 08:13 Dose: Not Given Documented by: [id number] Admin: 01/10/19 23:23 Dose: Not Given Documented by: [id number] Admin: 01/10/19 15:25 Dose: Not Given Documented by: [id number] Admin: 01/10/19 07:40 Dose: Not Given Documented by: [id number] Admin: 01/09/19 23:31 Dose: Not Given Documented by: [id number] Admin: 01/09/19 15:02 Dose: Not Given Documented by: [id number] Admin: 01/09/19 07:00 Dose: Not Given Documented by: [id number] Miscellaneous (Remove Nicoderm Patch) 1 ea N/A HS ON LICENSE OF [facility] Stop: 02/08/19 20:59 Last Admin: 01/10/19 20:41 Dose: 1 ea Documented by: [id number] Admin: 01/09/19 21:28 Dose: 1 ea Documented by: [id number] Multivitamins/Minerals (Multivitamin W/ Minerals Tab) 1 tab PO QAM STEPHAN Stop: 02/08/19 08:59 Last Admin: 01/11/19 08:19 Dose: 1 tab Documented by: [id number] Admin: 01/10/19 08:12 Dose: 1 tab Documented by: [id number] Admin: 01/09/19 08:09 Dose: 1 tab Documented by: [id number] Nicotine (Nicoderm Cq) 21 mg TD DAILY STEPHAN Stop: 02/08/19 08:59 Last Admin: 01/11/19 08:16 Dose: 21 mg Documented by: [id number] Admin: 01/10/19 07:41 Dose: 21 mg Documented by: [id number] Admin: 01/09/19 08:09 Dose: 21 mg Documented by: [id number] Ondansetron HCl (Zofran) 4 mg IV Q6H PRN PRN Reason: Nausea Stop: 02/07/19 23:49 Last Admin: 01/11/19 12:53 Dose: 4 mg Documented by: [id number] Admin: 01/10/19 19:45 Dose: 4 mg Documented by: [id number] Admin: 01/09/19 19:47 Dose: 4 mg Documented by: [id number] Thiamine HCl (Vitamin B-1) 100 mg PO QAM STEPHAN Stop: 02/10/19 08:59 Last Admin: 01/11/19 08:19 Dose: 100 mg Documented by: [id number] Discontinued Medications Famotidine (Pepcid) 20 mg PO BID ON LICENSE OF [facility] Stop: 02/08/19 20:59 Last Admin: 01/11/19 08:19 Dose: 20 mg Documented by: [id number] Admin: 01/10/19 20:42 Dose: 20 mg Documented by: [id number] Admin: 01/10/19 08:12 Dose: 20 mg Documented by: [id number] Admin: 01/09/19 21:28 Dose: 20 mg Documented by: [id number] Gabapentin (Neurontin) 600 mg PO Q12H STEPHAN Stop: 01/11/19 12:01 Last Admin: 01/11/19 11:39 Dose: 600 mg Documented by: [id number] Admin: 01/10/19 23:23 Dose: 600 mg Documented by: [id number] Gabapentin (Neurontin) 600 mg PO Q6H ON LICENSE OF [facility] Stop: 01/09/19 12:01 Last Admin: 01/09/19 12:17 Dose: 600 mg Documented by: [id number] Admin: 01/09/19 05:35 Dose: 600 mg Documented by: [id number] Gabapentin (Neurontin) 600 mg PO Q8H STEPHAN Stop: 01/10/19 14:01 Last Admin: 01/10/19 13:13 Dose: 600 mg Documented by: [id number] Admin: 01/10/19 06:06 Dose: 600 mg Documented by: [id number] Admin: 01/09/19 21:28 Dose: 600 mg Documented by: [id number] Gabapentin (Neurontin) 1,200 mg PO TODAY ONE Stop: 01/08/19 23:51 Last Admin: 01/09/19 00:37 Dose: 1,200 mg Documented by: [id number] Sodium Chloride (Nss 1000ml) 1,000 mls @ 999 mls/hr IV .Q1H1M STEPHAN Stop: 01/08/19 19:15 Last Infusion: 01/08/19 20:43 Dose: 0 mls/hr Documented by: [id number] Admin: 01/08/19 18:58 Dose: 999 mls/hr Documented by: [id number] Lorazepam (Ativan) 2 mg in 4 mls @ 4 mls/min IV NOW STA Stop: 01/08/19 18:43 Last Admin: 01/08/19 18:58 Dose: 4 mls/min Documented by: [id number] Multivitamins 10 ml/ Thiamine HCl 100 mg/ Folic Acid 1 mg/Sodium Chloride 1,011.2 mls @ 1,011.2 mls/hr IV .Q1H STEPHAN Stop: 01/08/19 20:29 Last Infusion: 01/08/19 21:55 Dose: 0 mls/hr Documented by: [id number] Admin: 01/08/19 20:09 Dose: 1,011.2 mls/hr Documented by: [id number] Famotidine 20 mg/ Syringe 5 mls @ 2.5 mls/min IV BID STEPHAN Stop: 02/08/19 08:59 Last Admin: 01/09/19 08:14 Dose: 2.5 mls/min Documented by: [id number] Lorazepam (Ativan) 1.5 mg in 3 mls @ 3 mls/min IV Q2H PRN PRN Reason: Alcohol Withdrawal Stop: 02/07/19 23:49 Last Admin: 01/11/19 00:59 Dose: 3 mls/min Documented by: [id number] Admin: 01/10/19 20:15 Dose: 3 mls/min Documented by: [id number] Admin: 01/10/19 13:56 Dose: 3 mls/min Documented by: [id number] Admin: 01/10/19 08:54 Dose: 3 mls/min Documented by: [id number] Admin: 01/09/19 22:44 Dose: 3 mls/min Documented by: [id number] Admin: 01/09/19 19:41 Dose: 3 mls/min Documented by: [id number] Admin: 01/09/19 16:15 Dose: 3 mls/min Documented by: [id number] Admin: 01/09/19 13:08 Dose: 3 mls/min Documented by: [id number] Admin: 01/09/19 05:49 Dose: 3 mls/min Documented by: [id number] Admin: 01/09/19 00:31 Dose: 3 mls/min Documented by: [id number] Thiamine HCl 100 mg/ Syringe 10 mls @ 2 mls/hr IV DAILY STEPHAN Stop: 02/08/19 08:59 Last Admin: 01/10/19 08:12 Dose: 2 mls/hr Documented by: [id number] Admin: 01/09/19 08:09 Dose: 2 mls/hr Documented by: [id number] Multivitamins 10 ml/ Thiamine HCl 100 mg/ Folic Acid 1 mg/Sodium Chloride 1,011.2 mls @ 500 mls/hr IV .Q2H2M STEPHAN Stop: 01/09/19 02:16 Last Infusion: 01/09/19 02:40 Dose: 0 mls/hr Documented by: [id number] Admin: 01/09/19 00:36 Dose: 500 mls/hr Documented by: [id number] Folic Acid 1 mg/ Syringe 10 mls @ 5 mls/min IV QAM STEPHAN Stop: 02/08/19 08:59 Last Admin: 01/10/19 08:12 Dose: 5 mls/min Documented by: [id number] Admin: 01/09/19 08:09 Dose: 5 mls/min Documented by: [id number] Magnesium Sulfate/Dextrose (Magnesium Sulfate / D5w) 1 gm in 100 mls @ 100 mls/hr IV Q1H STEPHAN Stop: 01/09/19 01:49 Last Infusion: 01/09/19 02:47 Dose: 0 mls/hr Documented by: [id number] Admin: 01/09/19 01:45 Dose: 100 mls/hr Documented by: [id number] Infusion: 01/09/19 01:35 Dose: 100 mls/hr Documented by: [id number] Admin: 01/09/19 00:35 Dose: 100 mls/hr Documented by: [id number] Potassium Chloride/Sodium Chloride (Normal Saline W/20 Meq Kcl) 20 meq in 1,000 mls @ 80 mls/hr IV .[id number] STEPHAN Stop: 02/08/19 01:59 Last Infusion: 01/10/19 18:02 Dose: 0 mls/hr Documented by: [id number] Admin: 01/10/19 16:18 Dose: 80 mls/hr Documented by: [id number] Infusion: 01/10/19 15:53 Dose: 80 mls/hr Documented by: [id number] Admin: 01/10/19 03:23 Dose: 80 mls/hr Documented by: [id number] Infusion: 01/10/19 03:23 Dose: 80 mls/hr Documented by: [id number] Admin: 01/09/19 15:00 Dose: 80 mls/hr Documented by: [id number] Infusion: 01/09/19 15:00 Dose: 80 mls/hr Documented by: [id number] Admin: 01/09/19 02:48 Dose: 80 mls/hr Documented by: [id number] Lorazepam (Ativan) 1 mg in 2 mls @ 2 mls/min IV NOW STA Stop: 01/11/19 01:13 Last Admin: 01/11/19 01:35 Dose: Not Given Documented by: [id number] Lorazepam (Ativan) 0.5 mg PO NOW STA Stop: 01/10/19 16:28 Last Admin: 01/10/19 16:35 Dose: 0.5 mg Documented by: [id number] Potassium Chloride (Klor-Con M20) 60 meq PO NOW STA Stop: 01/08/19 23:51 Last Admin: 01/09/19 00:37 Dose: 60 meq Documented by: [id number] Potassium Chloride (Klor-Con M10) 20 meq PO NOW STA Stop: 01/11/19 12:43 Last Admin: 01/11/19 14:50 Dose: 20 meq Documented by: [id number] Medical Decision Making Differential Diagnosis Differential diagnosis: Etiologies such as toxicologic, infection, hypoglycemia, electrolyte abnormal ities, cardiac sources, intracerebral event, alcohol withdrawal, neurologic, as well as others were entertained. Medical Records Attestation: I reviewed the patient's medical records. Home Medications Current Medication List: was personally reviewed by me Laboratory Data Attestation: I reviewed the patient's lab results. Result diagrams: 01/11/19 06:19 01/11/19 06:19 Lab Results 01/08/19 01/08/19 01/08/19 Range/Units 18:44 18:44 18:44 WBC (4.8-10.8) K/uL RBC (4.2-5.4) M/uL Hgb (12.0-16.0) g/dL Hct (37-47) % MCV (80-100) fL MCH (25-34) pg MCHC (32-36) g/dL RDW Std Deviation (36.4-46.3) fL RDW Coeff of Radha (11.5-14.5) % Plt Count (130-400) K/uL MPV (7.4-10.4) fL Immature Gran % (Auto) % Neut % (Auto) % Lymph % (Auto) % [place] % (Auto) % Eos % (Auto) % Baso % (Auto) % Immature Gran # (Auto) (0.00-0.02) K/uL Neut # (Auto) (1.4-6.5) K/uL Lymph # (Auto) (1.2-3.4) K/uL [place] # (Auto) (0.11-0.59) K/uL Eos # (Auto) (0-0.5) K/uL Baso # (Auto) (0-0.2) K/uL Platelet Estimate (Normal) PT 13.4 H (9.0-12.0) Seconds INR 1.3 H (0.9-1.1) Sodium 135 L (136-145) mmol/L Potassium 3.0 L (3.5-5.1) mmol/L Chloride 102 (98-107) mmol/L Carbon Dioxide 27 (21-32) mmol/L Anion Gap 6.0 (3-11) BUN 7 (7-18) mg/dl Creatinine 0.61 (0.6-1.2) mg/dl Est Cr Clr Drug Dosing 94.9 ml/min Est GFR ( Amer) 119.1 Est GFR (Non-Af Amer) 102.8 BUN/Creatinine Ratio 11.3 (10-20) Glucose 93 (70-99) mg/dl Calcium 8.6 (8.5-10.1) mg/dl Magnesium 1.6 L (1.8-2.4) mg/dl Total Bilirubin 2.9 H (0.2-1) mg/dl AST 155 H (15-37) U/L ALT 64 (12-78) U/L Alkaline Phosphatase 126 H (45-117) U/L Total Protein 8.1 (6.4-8.2) gm/dl Albumin 3.1 L (3.4-5.0) gm/dl Globulin 5.0 H (2.5-4.0) gm/dl Albumin/Globulin Ratio 0.6 L (0.9-2) TSH 2.350 (0.300-4.500) uIu/ml Ethyl Alcohol mg/dL < 3.0 (0-3) mg/dl 01/08/19 Range/Units 18:44 WBC 4.66 L (4.8-10.8) K/uL RBC 4.09 L (4.2-5.4) M/uL Hgb 14.5 (12.0-16.0) g/dL Hct 39.9 (37-47) % MCV 97.6 (80-100) fL MCH 35.5 H (25-34) pg MCHC 36.3 H (32-36) g/dL RDW Std Deviation 48.9 H (36.4-46.3) fL RDW Coeff of Radha 13.7 (11.5-14.5) % Plt Count 30 L (130-400) K/uL MPV 13.1 H (7.4-10.4) fL Immature Gran % (Auto) 0.2 % Neut % (Auto) 47.9 % Lymph % (Auto) 20.6 % [place] % (Auto) 29.0 % Eos % (Auto) 1.7 % Baso % (Auto) 0.6 % Immature Gran # (Auto) 0.01 (0.00-0.02) K/uL Neut # (Auto) 2.23 (1.4-6.5) K/uL Lymph # (Auto) 0.96 L (1.2-3.4) K/uL [place] # (Auto) 1.35 H (0.11-0.59) K/uL Eos # (Auto) 0.08 (0-0.5) K/uL Baso # (Auto) 0.03 (0-0.2) K/uL Platelet Estimate SIGNIFIC DECREASED (Normal) PT (9.0-12.0) Seconds INR (0.9-1.1) Sodium (136-145) mmol/L Potassium (3.5-5.1) mmol/L Chloride (98-107) mmol/L Carbon Dioxide (21-32) mmol/L Anion Gap (3-11) BUN (7-18) mg/dl Creatinine (0.6-1.2) mg/dl Est Cr Clr Drug Dosing ml/min Est GFR ( Amer) Est GFR (Non-Af Amer) BUN/Creatinine Ratio (10-20) Glucose (70-99) mg/dl Calcium (8.5-10.1) mg/dl Magnesium (1.8-2.4) mg/dl Total Bilirubin (0.2-1) mg/dl AST (15-37) U/L ALT (12-78) U/L Alkaline Phosphatase (45-117) U/L Total Protein (6.4-8.2) gm/dl Albumin (3.4-5.0) gm/dl Globulin (2.5-4.0) gm/dl Albumin/Globulin Ratio (0.9-2) TSH (0.300-4.500) uIu/ml Ethyl Alcohol mg/dL (0-3) mg/dl Blood Pressure Blood Pressure Findings: Normal blood pressure Blood Pressure Disposition: did not require urgent referral MDM Narrative This pt was evaluated and appeared to be in acute ETOH w/d. IV access was obtained and lab work was drawn. PT was placed on the monitor tech. She was given IV nss and a banana bag was ordered. IV ativan 2 mg was given with improvement. Lab work is concerning for INR 1.3 and K 3.0. Pt required an additional dose of IV ativan 2 mg. Case was d/w Dr Romero of [facility] hospitalist service for further management. Impression & Plan Alcohol withdrawal, Cirrhosis of liver, Hyperbilirubinemia Discharge Plan Visit Data *Final* Discharge Date/Time: 01/08/19 22:57 Chief Complaint: Detox Request Stated Complaint: sent for admission ED Provider: Zoila Drummond Discharge Problem: Alcohol withdrawal, Cirrhosis of liver, Hyperbilirubinemia Patient Disposition: Admitted As Inpatient Discharge Instructions Interventions: ED Discharge Assessment Last Done: 01/08/19 22:57 The scribe's documentation has been prepared under my direction and personally reviewed by me in its entirety. I confirm that the note above accurately refle cts all work, treatment, procedures, and medical decision making performed by me.
[2019-01-09] MEDS: MAGNESIUM SULFATE / D5W 1 GM/100 ML BAG IV SCH ×2 (00:35→01:45)
[2019-01-09] MEDS: NSS + 20MEQ KCL 20 MEQ/1,000 ML BAG IV SCH ×2 (02:48→15:00)
[2019-01-09] MEDS: GABAPENTIN 600 MG TAB PO SCH ×3 (05:35→21:28)
[2019-01-09 05:50] LABS: Platelet Count 25 K/uL (130-400)
[2019-01-09 05:57] LABS: Basophils # (auto) 0.02 K/uL (0-0.2); Basophils % (auto) 0.6 %; Eosinophils # (auto) 0.09 K/uL (0-0.5); Eosinophils % (auto) 2.6 %; Giant Platelets 2+; Hemoglobin 12.3 g/dL (12.0-16.0); Lymphocytes # (auto) 1.15 K/uL (1.2-3.4); Lymphocytes % (auto) 33.3 %; Mean Corpuscular Hgb Conc 35.1 g/dL (32-36); Mean Corpuscular Volume 99.4 fL (80-100); Mean Platelet Volume 12.7 fL (7.4-10.4); Monocytes # (auto) 0.85 K/uL (0.11-0.59); Monocytes % (auto) 24.6 %; Neutrophils # (auto) 1.34 K/uL (1.4-6.5); Neutrophils % (auto) 38.9 %; Platelet Estimate SIGNIFIC DECREASED (Normal); RDW Standard Deviation 50.2 fL (36.4-46.3); Red Blood Count 3.52 M/uL (4.2-5.4); White Blood Count 3.45 K/uL (4.8-10.8)
[2019-01-09 06:17] LABS: BUN Creatinine Ratio 12.5 (10-20); Calcium 7.1 mg/dl (8.5-10.1); Creatinine Clr Calc Pharmacy 123.1 ml/min; Est GFR (African American) 129.8; Magnesium 2.4 mg/dl (1.8-2.4); Potassium 3.8 mmol/L (3.5-5.1)
[2019-01-09 06:19] LABS: Albumin Level 2.4 gm/dl (3.4-5.0); Bilirubin Direct 0.9 mg/dl (0-0.2); Bilirubin,Total 1.9 mg/dl (0.2-1); Total Protein 6.3 gm/dl (6.4-8.2)
[2019-01-09 07:46] LABS: Folate (Folic Acid) > 24.00 ng/ml (>5.38); Vitamin B12 1118 pg/ml (211-911)
[2019-01-09] MEDS: CEROVITE ADV FORMULA TAB PO SCH (08:09)
[2019-01-09] MEDS: FOLIC ACID 1 MG in SYRINGE 9.8 ML IV SCH (08:09)
[2019-01-09] MEDS: THIAMINE HCL 100 MG in SYRINGE 9 ML IV SCH (08:09)
[2019-01-09] MEDS: NICOTINE 21 MG/24 HR TDSY TD SCH (08:09)
[2019-01-09] MEDS ORDERED: FAMOTIDINE 20 MG in SYRINGE 3 ML IV SCH (09:00)
[2019-01-09 12:31] LABS: Appearance Urine Clear (Clear); Bilirubin Urine Negative (Negative); Blood Urine Negative (Negative); Color Urine Yellow; Glucose Urine UA Negative (Negative); Ketones Urine Negative (Negative); Leukocyte Esterase Urine Negative (Negative); Nitrite Urine Negative (Negative); Protein Urine Negative (Negative); Specific Gravity Urine <= 1.005 (1.000-1.030); Urobilinogen Urine Positive (Negative); pH Urine 6.5 (4.5-7.5)
[2019-01-09 12:55] LABS: Amphetamines+Metham, Urine Neg (Neg); Barbiturates, Urine Neg (Neg); Benzodiazepine, Urine Neg (Neg); Cocaine, Urine Neg (Neg); MDMA (Ecstacy), Urine Neg (Neg); Methadone, Urine Neg (Neg); Opiate, Urine Neg (Neg); Phencyclidine, Urine Neg (Neg)
--- NOTE | 2019-01-09 13:59 | Hospitalist Progress Note ---
Date of Service January 09, 2019 Assessment & Plan (1) Alcohol withdrawal: Has history of alcoholism Was admitted from GI clinic with withdrawal symptoms Will need inpatient rehab and the patient is agreeable Symptomatically little better Present on Admission?: Yes (2) Cirrhosis of liver: Has cirrhosis secondary to alcohol Complicated by hepatitis C which has been treated Follow GI as an outpatient (3) Hepatitis C: Treated (4) COPD (chronic obstructive pulmonary disease): Secondary to smoking Not having any acute exacerbation (5) Anxiety and depression: Has been on medications for this We will continue No acute confusion (6) Electrolyte abnormality: Secondary to alcoholism We will supplement and monitor Social service service consulted for placement for inpatient alcohol rehab PT and OT evaluation Subjective 01/09 Patient is seen and examined in medical telemetry unit She is a 53-year-old female with significant past medical history of chronic alcoholism, cirrhosis secondary to alcohol, hepatitis C treated, tobacco abuse disorder, COPD, anxiety and depression was admitted GI clinic with request for inpatient detox. Complains of palpitation and shakiness Unsteady on feet Denies any other symptoms Review of Systems Review of Systems: All systems reviewed and are unremarkable except as noted below Constitutional: + fatigue, + weakness and + weight loss Respiratory: no dyspnea Cardiovascular: + palpitations Gastrointestinal: + bloating Neurologic: + gait abnormality, + unsteadiness and + generalized weakness Psychiatric: + depression, + anxiety and + confusion Physical Exam Physical Exam: Minimal distress at rest mostly shakes Constitutional: + ill appearing Eyes: PERRL, conjunctivae normal, anicteric sclerae ENMT: external ear and nose normal, oropharynx normal Neck: trachea midline, no thyromegaly Respiratory: + respiratory distress (Minimal) Cardiovascular: Rate/Rhythm: + tachycardic Gastrointestinal (Abdomen): Inspection/Auscultation: abdomen normal to inspection Percussion/Palpation: + abdomen tender (Minimally tender epi gastric) Musculoskeletal: No acute arthritis in any joints Neurologic: moves all extremities Generally weak and lethargy Psychiatric: Orientation: alert Affect: + depressed affect and + anxious affect Mood: + anxious mood; no irritable mood Lymphatic: no cervical or axillary lymphadenopathy Results & Data Vital Signs (Past 12 Hours) Vital Signs Temp Pulse Pulse Resp BP Pulse Ox 01/09/19 10:00 36.8 C 97 H 18 105/67 93 01/09/19 08:00 93 H 01/09/19 07:00 37.0 C 98 H 18 102/86 90 01/09/19 04:04 36.9 C 95 H 18 112/67 90 Laboratory Results Short CBC 01/08/19 01/09/19 Range/Units 18:44 05:20 WBC 4.66 L 3.45 L (4.8-10.8) K/uL Hgb 14.5 12.3 (12.0-16.0) g/dL Hct 39.9 35.0 L (37-47) % Plt Count 30 L 25 L* (130-400) K/uL BMP 01/08/19 01/09/19 18:44 05:20 Sodium 135 L 142 D Potassium 3.0 L 3.8 D Chloride 102 115 H Carbon Dioxide 27 23 BUN 7 6 L Creatinine 0.61 0.47 L Glucose 93 75 Calcium 8.6 7.1 L D Liver Function 01/08/19 01/09/19 Range/Units 18:44 05:20 Total Bilirubin 2.9 H 1.9 H (0.2-1) mg/dl Direct Bilirubin 0.9 H (0-0.2) mg/dl AST 155 H 117 H (15-37) U/L ALT 64 48 (12-78) U/L Alkaline Phosphatase 126 H 99 (45-117) U/L Albumin 3.1 L 2.4 L (3.4-5.0) gm/dl Urine 01/09/19 Range/Units 12:15 Urine Color Yellow Urine Appearance Clear (Clear) Urine pH 6.5 (4.5-7.5) Ur Specific [place] <= 1.005 (1.000-1.030) Urine Protein Negative (Negative) Urine Glucose (UA) Negative (Negative) Medications Administered Current Inpatient Medications Al Hydrox/Mg Hydrox/Simethicone (Maalox) 15 ml PO Q4H PRN PRN Reason: Dyspepsia Stop: 02/07/19 23:49 Albuterol (Ventolin Hfa) 2 puffs INH Q6H PRN PRN Reason: Shortness Of Breath Or Wheezin Stop: 02/07/19 23:49 Famotidine (Pepcid) 20 mg PO BID STEPHAN Stop: 02/08/19 20:59 Gabapentin (Neurontin) 600 mg PO Q12H STEPHAN Stop: 01/11/19 12:01 Gabapentin (Neurontin) 600 mg PO Q24H STEPHAN Stop: 01/12/19 12:01 Gabapentin (Neurontin) 600 mg PO Q8H STEPHAN Stop: 01/10/19 14:01 Lorazepam (Ativan) 1.5 mg in 3 mls @ 3 mls/min IV Q2H PRN PRN Reason: Alcohol Withdrawal Stop: 02/07/19 23:49 Last Admin: 01/09/19 13:08 Dose: 3 mls/min Documented by: Thiamine HCl 100 mg/ Syringe 10 mls @ 2 mls/hr IV DAILY STEPHAN Stop: 02/08/19 08:59 Last Admin: 01/09/19 08:09 Dose: 2 mls/hr Documented by: Folic Acid 1 mg/ Syringe 10 mls @ 5 mls/min IV QAM STEPHAN Stop: 02/08/19 08:59 Last Admin: 01/09/19 08:09 Dose: 5 mls/min Documented by: Potassium Chloride/Sodium Chloride (Normal Saline W/20 Meq Kcl) 20 meq in 1,000 mls @ 80 mls/hr IV .[id number] STEPHAN Stop: 02/08/19 01:59 Last Admin: 01/09/19 02:48 Dose: 80 mls/hr Documented by: Miscellaneous (Order Awaiting Action) 1 ea N/A QS [facility] Stop: 02/08/19 07:59 Last Admin: 01/09/19 07:00 Dose: Not Given Documented by: Miscellaneous (Order Awaiting Action) 1 ea N/A QS [facility] Stop: 02/08/19 07:59 Last Admin: 01/09/19 07:00 Dose: Not Given Documented by: Miscellaneous (Remove Nicoderm Patch) 1 ea N/A HS [facility] Stop: 02/08/19 20:59 Multivitamins/Minerals (Multivitamin W/ Minerals Tab) 1 tab PO QAM STEPHAN Stop: 02/08/19 08:59 Last Admin: 01/09/19 08:09 Dose: 1 tab Documented by: Nicotine (Nicoderm Cq) 21 mg TD DAILY STEPHAN Stop: 02/08/19 08:59 Last Admin: 01/09/19 08:09 Dose: 21 mg Documented by: Nitroglycerin (Nitrostat) 0.4 mg SL UD PRN PRN Reason: Chest Pain Stop: 02/07/19 23:49 Ondansetron HCl (Zofran) 4 mg IV Q6H PRN PRN Reason: Nausea Stop: 02/07/19 23:49
[2019-01-09] MEDS: ONDANSETRON INJ 2 MG/ML 2 ML VIAL IV PRN (19:47)
[2019-01-09] MEDS: FAMOTIDINE 20 MG TAB PO SCH (21:28)
[2019-01-10] MEDS: NSS + 20MEQ KCL 20 MEQ/1,000 ML BAG IV SCH ×2 (03:23→16:18)
[2019-01-10] MEDS: GABAPENTIN 600 MG TAB PO SCH ×3 (06:06→23:23)
[2019-01-10 06:09] LABS: Calcium 7.7 mg/dl (8.5-10.1); Creatinine Clr Calc Pharmacy 101.5 ml/min; Est GFR (African American) 121.8; Est GFR (Non-African American) 105.1; Magnesium 2.1 mg/dl (1.8-2.4)
[2019-01-10 06:10] LABS: Phosphorus 3.1 mg/dl (2.5-4.9)
[2019-01-10] MEDS: NICOTINE 21 MG/24 HR TDSY TD SCH (07:41)
[2019-01-10] MEDS: THIAMINE HCL 100 MG in SYRINGE 9 ML IV SCH (08:12)
[2019-01-10] MEDS: FOLIC ACID 1 MG in SYRINGE 9.8 ML IV SCH (08:12)
[2019-01-10] MEDS: FAMOTIDINE 20 MG TAB PO SCH ×2 (08:12→20:42)
[2019-01-10] MEDS: CEROVITE ADV FORMULA TAB PO SCH (08:12)
[2019-01-10] MEDS: LORazepam 1.5 MG/3 ML VIAL IV PRN ×3 (08:54→20:15)
[2019-01-10] MEDS ORDERED: LORazepam 0.5 MG TAB PO STA (16:27)
--- NOTE | 2019-01-10 16:55 | Hospitalist Progress Note ---
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 Follow GI as an outpatient (3) Hepatitis C: Treated (4) COPD (chronic obstructive pulmonary disease): Secondary to smoking Not having any acute exacerbation (5) Anxiety and depression: Will defer to PCP to consider to start on SSRI stable (6) Electrolyte abnormality: Possible related to alcohol abuse K supplement K stable monitor BMP Thrombocytopenia Mostly due to liver cirrhosis/alcohol abuse Plt 25 today No active sign of bleeding monitor CBC Disposition Continue PT/OT Advised pt about inpatient alcohol rehab, she is interested in outpatient alcohol rehab Possible discharge tomorrow Subjective Pt was seen and examined Lying in bed with no distress Pt said that she feels fine She does not have any hallucination Denies any chest pain, palpitation, dizziness and SOB Physical Exam Physical Exam: General- No acute distress Head- atraumatic Eyes- PERRL, EOMI, no nystagmus ENT- oropharynx clear Neck- supple, no JVD Lungs- clear to auscultation Heart- regular rhythm; no murmur Abdomen- normal bowel sounds, soft, nontender Extremities- no calf tenderness Neuro- alert, oriented x 3; PERRL, EOMI; no facial palsy; no dysarthria, mild tremor during finger to nose Skin- warm & dry Results & Data Vital Signs (Past 12 Hours) Vital Signs Temp Pulse Pulse Resp BP BP Pulse Ox 01/10/19 16:00 73 01/10/19 15:44 95 01/10/19 15:06 36.8 C 84 18 117/77 95 01/10/19 14:05 36.5 C 84 20 116/96 96 01/10/19 11:19 36.8 C 84 18 119/73 94 01/10/19 08:54 36.8 C 84 18 110/68 96 01/10/19 07:20 36.7 C 83 20 118/78 94 01/10/19 07:00 88
[2019-01-10] MEDS: ONDANSETRON INJ 2 MG/ML 2 ML VIAL IV PRN (19:45)
[2019-01-11] MEDS: LORazepam 1.5 MG/3 ML VIAL IV PRN (00:59)
[2019-01-11] MEDS ORDERED: LORazepam 1 MG/2 ML VIAL IV STA (01:12)
[2019-01-11] MEDS ORDERED: LORazepam 3 MG/6 ML VIAL IV PRN (01:32)
[2019-01-11] MEDS ORDERED: ATIVAN IV ALCOHOL WITHDRAWL IV SCH (01:45)
[2019-01-11] MEDS: LORazepam 2 MG/4 ML VIAL IV PRN ×5 (01:55→16:16)
[2019-01-11 06:43] LABS: Hematocrit (blood only) 39.9 % (37-47); Hemoglobin 13.6 g/dL (12.0-16.0); Mean Corpuscular Hgb Conc 34.1 g/dL (32-36); Mean Corpuscular Volume 101.5 fL (80-100); Mean Platelet Volume 12.7 fL (7.4-10.4); Platelet Count 32 K/uL (130-400); RDW Coefficient of Variation 13.9 % (11.5-14.5); RDW Standard Deviation 52.2 fL (36.4-46.3); Red Blood Count 3.93 M/uL (4.2-5.4); White Blood Count 3.79 K/uL (4.8-10.8)
[2019-01-11 07:16] LABS: BUN Creatinine Ratio 12.8 (10-20); Calcium 8.3 mg/dl (8.5-10.1); Creatinine Clr Calc Pharmacy 101.5 ml/min; Est GFR (African American) 121.8; Est GFR (Non-African American) 105.1; Potassium 3.5 mmol/L (3.5-5.1)
[2019-01-11] MEDS: LORazepam 1 MG/2 ML VIAL IV PRN ×2 (08:13→21:22)
[2019-01-11] MEDS: NICOTINE 21 MG/24 HR TDSY TD SCH (08:16)
[2019-01-11] MEDS: CEROVITE ADV FORMULA TAB PO SCH (08:19)
[2019-01-11] MEDS: THIAMINE HCL 100 MG TAB PO SCH (08:19)
[2019-01-11] MEDS: FAMOTIDINE 20 MG TAB PO SCH (08:19)
[2019-01-11] MEDS: FOLIC ACID 1 MG TAB PO SCH (08:19)
[2019-01-11] MEDS: GABAPENTIN 600 MG TAB PO SCH (11:39)
--- NOTE | 2019-01-11 12:34 | Hospitalist Progress Note ---
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 Follow GI as an outpatient (3) Hepatitis C: Treated (4) COPD (chronic obstructive pulmonary disease): Secondary to smoking Not having any acute exacerbation (5) Anxiety and depression: Very anxious to leave today Received Ativan prn Will defer to PCP to consider to start on SSRI stable (6) Electrolyte abnormality: Possible related to alcohol abuse D/C IVF with K K 3.5 today Will start on Oral k supplement Monitor BMP Thrombocytopenia Mostly due to liver cirrhosis/alcohol abuse Plt increased to 32 today No active sign of bleeding monitor CBC Tobacco abuse Very anxious to go outside to smoke Continue nicotine patch Counseling on smoking cessation Disposition Continue PT/OT Advised pt about inpatient alcohol rehab, she is interested in outpatient alcohol rehab Possible discharge tomorrow Subjective Pt was seen and examined Sitting in bed with no distress with at bedside Pt was very agitated last night because staff did not want her to go out to smoke cigarette She has been very silva this morning Nurse said that she had 3mg of Ativan so far this morning Denies any chest pain, palpitation, dizziness, hallucination and SOB Physical Exam Physical Exam: General- No acute distress, very silva today Head- atraumatic Eyes- PERRL, EOMI, no nystagmus ENT- oropharynx clear Neck- supple, no JVD Lungs- clear to auscultation Heart- regular rhythm; no murmur Abdomen- normal bowel sounds, soft, nontender Extremities- no calf tenderness Neuro- alert, oriented x 3; PERRL, EOMI; no facial palsy; no dysarthria, mild tremor during finger to nose Skin- warm & dry Results & Data Vital Signs (Past 12 Hours) Vital Signs Temp Pulse Resp BP BP Pulse Ox 01/11/19 11:42 36.5 C 81 18 96/60 L 92 01/11/19 09:49 36.6 C 86 20 116/65 95 01/11/19 07:18 36.8 C 86 18 106/74 91 01/11/19 03:58 36.2 C L 88 18 107/73 91 01/11/19 02:56 36.5 C 85 18 121/84 96 01/11/19 01:48 36.6 C 91 H 18 133/88 95 01/11/19 00:51 36.6 C 91 H 18 126/81 95
[2019-01-11] MEDS ORDERED: POTASSIUM CHLORIDE 10 MEQ TABCR PO STA (12:42)
[2019-01-11] MEDS: ONDANSETRON INJ 2 MG/ML 2 ML VIAL IV PRN ×2 (12:53→19:45)
[2019-01-11] MEDS ORDERED: OXYCODONE HCL IR 5 MG TAB (IMMEDIATE RELEASE) PO PRN (19:54)
[2019-01-11] MEDS ORDERED: ACETAMINOPHEN 325 MG TAB PO PRN (19:54)
[2019-01-11] MEDS ORDERED: POLYETHYLENE (MIRALAX) 17 GM PACK PO PRN (20:04)
[2019-01-11] MEDS: DOCUSATE SODIUM 100 MG CAP PO SCH (21:22)
[2019-01-12] MEDS: LORazepam 1 MG/2 ML VIAL IV PRN ×6 (03:47→21:33)
[2019-01-12] MEDS: ONDANSETRON INJ 2 MG/ML 2 ML VIAL IV PRN ×2 (06:29→17:43)
[2019-01-12 07:11] LABS: BUN Creatinine Ratio 15.6 (10-20); Calcium 8.5 mg/dl (8.5-10.1); Creatinine Clr Calc Pharmacy 83.9 ml/min; Est GFR (African American) 114.4; Est GFR (Non-African American) 98.7; Potassium 4.1 mmol/L (3.5-5.1)
[2019-01-12] MEDS: FOLIC ACID 1 MG TAB PO SCH (08:14)
[2019-01-12] MEDS: CEROVITE ADV FORMULA TAB PO SCH (08:14)
[2019-01-12] MEDS: DOCUSATE SODIUM 100 MG CAP PO SCH (08:14)
[2019-01-12] MEDS: PANTOprazole 40 MG TAB PO SCH (08:15)
[2019-01-12] MEDS: THIAMINE HCL 100 MG TAB PO SCH (08:15)
[2019-01-12] MEDS: NICOTINE 21 MG/24 HR TDSY TD SCH (08:15)
[2019-01-12] MEDS: LORazepam 2 MG/4 ML VIAL IV PRN (10:38)
[2019-01-12] MEDS ORDERED: GABAPENTIN 600 MG TAB PO SCH (12:00)
--- NOTE | 2019-01-12 19:07 | Hospitalist Progress Note ---
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 Follow GI as an outpatient (3) Hepatitis C: Treated (4) COPD (chronic obstructive pulmonary disease): Secondary to smoking Not having any acute exacerbation (5) Anxiety and depression: Very anxious to leave today Received Ativan prn Will defer to PCP to consider to start on SSRI stable (6) Electrolyte abnormality: Possible related to alcohol abuse D/C IVF with K K 3.5 today Will start on Oral k supplement Monitor BMP Thrombocytopenia Mostly due to liver cirrhosis/alcohol abuse Plt increased to 32 today No active sign of bleeding monitor CBC Tobacco abuse Very anxious to go outside to smoke Continue nicotine patch Counseling on smoking cessation Disposition Continue PT/OT Advised pt about inpatient alcohol rehab, she is interested in outpatient alcohol rehab Possible discharge tomorrow Subjective Pt was seen and examined Lying in bed with no distress Feels calm today Nurse said that pt is very anxious She has been required ativan Pt would like to go home Denies any chest pain, palpitation, dizziness, hallucination and SOB Physical Exam Physical Exam: General- No acute distress, very silva today Head- atraumatic Eyes- PERRL, EOMI, no nystagmus ENT- oropharynx clear Neck- supple, no JVD Lungs- clear to auscultation Heart- regular rhythm; no murmur Abdomen- normal bowel sounds, soft, nontender Extremities- no calf tenderness Neuro- alert, oriented x 3; PERRL, EOMI; no facial palsy; no dysarthria, mild tremor during finger to nose Skin- warm & dry Results & Data Vital Signs (Past 12 Hours) Vital Signs Temp Pulse Pulse Resp BP Pulse Ox 01/12/19 17:36 36.6 C 104 H 20 92/64 L 94 01/12/19 16:00 84 01/12/19 15:35 36.4 C L 102 H 20 91/62 L 95 01/12/19 12:26 95 01/12/19 11:46 93 01/12/19 11:35 36.3 C L 80 12 95/66 L 89 L 01/12/19 09:58 36.4 C L 89 20 95/65 L 95
[2019-01-13] MEDS: LORazepam 1 MG/2 ML VIAL IV PRN (00:28)
[2019-01-13] MEDS: PANTOprazole 40 MG TAB PO SCH (08:16)
[2019-01-13] MEDS: FOLIC ACID 1 MG TAB PO SCH (08:16)
[2019-01-13] MEDS: DOCUSATE SODIUM 100 MG CAP PO SCH (08:16)
[2019-01-13] MEDS: CEROVITE ADV FORMULA TAB PO SCH (08:16)
[2019-01-13] MEDS: NICOTINE 21 MG/24 HR TDSY TD SCH (08:17)
[2019-01-13] MEDS: THIAMINE HCL 100 MG TAB PO SCH (08:17)
[2019-01-13] MEDS ORDERED: chlordiazePOXIDE HCl 5 MG CAP PO SCH (09:00)
--- NOTE | 2019-01-13 13:37 | Hospitalist Progress Note ---
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 Follow GI as an outpatient (3) Hepatitis C: Treated (4) COPD (chronic obstructive pulmonary disease): Secondary to smoking Not having any acute exacerbation (5) Anxiety and depression: Very anxious to leave today Received Ativan prn Will defer to PCP to consider to start on SSRI stable (6) Electrolyte abnormality: Possible related to alcohol abuse D/C IVF with K K 4.1 yesterday Monitor BMP Thrombocytopenia Mostly due to liver cirrhosis/alcohol abuse Plt increased to 32 No active sign of bleeding monitor CBC Tobacco abuse Very anxious to go outside to smoke Continue nicotine patch Counseling on smoking cessation Disposition Continue PT/OT Advised pt about inpatient alcohol rehab, she is interested in outpatient alcohol rehab Possible discharge today Subjective Pt was seen and examined Lying in bed with no distress Pt looks much better today She is much calm today Has not been asking for any ativan Last dose of ativan was yesterday She has been walking with her in the hallway She would like to go home today Denies any chest pain, palpitation, dizziness, hallucination and SOB Physical Exam Physical Exam: General- No acute distress, pleasant Head- atraumatic Eyes- PERRL, EOMI, no nystagmus ENT- oropharynx clear Neck- supple, no JVD Lungs- clear to auscultation Heart- regular rhythm; no murmur Abdomen- normal bowel sounds, soft, nontender Extremities- no calf tenderness Neuro- alert, oriented x 3; PERRL, EOMI; no facial palsy; no dysarthria, no tremor Skin- warm & dry Results & Data Vital Signs (Past 12 Hours) Vital Signs Temp Pulse Pulse Resp BP BP Pulse Ox 01/13/19 13:07 86/60 L 01/13/19 10:15 82/48 L 01/13/19 08:08 82/50 L 01/13/19 07:27 36.5 C 93 H 18 84/57 L 91 01/13/19 03:06 36.1 C L 86 16 90/60 L 91
--- NOTE | 2019-01-15 08:28 | Discharge Summary ---
Date of Service January 13, 2019 Admission HPI Per Admitting Provider CHIEF COMPLAINT: Alcoholism and request for detoxification. HISTORY OF PRESENT ILLNESS: This 53-year-old female with past medical history significant for chronic alcoholism, liver cirrhosis secondary to alcoholism, history of hepatitis C treated, virus undetectable, history of tobacco abuse, COPD, portal hypertension, history of gastritis, history of pancreatitis, depression with anxiety and history of hematemesis, thrombocytopenia, presents for alcohol detox request. Patient was seen by GI today. She was trying to cut back on her alcoholism. She usually drinks one pint of bourbon every day.Yesterday, she was shaky and she took one bottle of beer and she went to see GI today. She was in [facility] years ago and also a few months ago she checked in herself again, but as she was not seen for 6 hours she left. She states if she stops drinking alcohol, she gets stressed and sometimes she gets shaky and anxious and again she starts drinking. GI asked her to get admitted to hospital for detoxification and they want to follow as outpatient when she gets discharged from the hospital. The patient was treated for hepatitis C with [facility] for 12 weeks, last viral load in 10/2006 was not detectable. 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 The patient says last night, she had epistaxis, but that stopped, had some headache, she get dizzy when she stands up and she gets wobbly when ambulating. Denies any sore throat, difficulty swallowing. Appetite is not that great. Denies any chest pain, no shortness of breath, has some nausea and abdominal pain. Nausea is constant. The abdominal pain is on and off in the epigastric region, but it subsides by its own. Normal bowel and bladder movements. No blood in her stools or no hematuria. No swelling of the legs. Currently resting comfortably and hemodynamically stable, alert and oriented. in the room. Admission Exam Per Admitting Provider GENERAL: The patient is of moderate build, not in acute distress. VITAL SIGNS: Temperature 37, pulse 86, respiratory rate 18, blood pressure 105/60, oxygen 96% on room air. HEENT: No pallor, no icterus. Pupils equal, round and reactive to light. NECK: Supple, no neck masses. CARDIOVASCULAR: S1, S2 heard, regular rate and rhythm, no murmur. RESPIRATORY SYSTEM: Normal AP diameter. No accessory muscle use. No wheezing, no crackles. ABDOMEN: Soft, bowel sounds present. Diffuse tenderness with mild guarding, no rigidity. CENTRAL NERVOUS SYSTEM: Cranial nerves II through XII intact. Nonfocal. EXTREMITIES: No edema, no erythema. Principal Diagnosis Alcohol withdrawal Cirrhosis of liver Electrolyte abnormality Tobacco abuse Hx Hepatitis C Depression Anxiety Thrombocytopenia COPD Discharge Exam General- No acute distress, pleasant Head- atraumatic Eyes- PERRL, EOMI, no nystagmus ENT- oropharynx clear Neck- supple, no JVD Lungs- clear to auscultation Heart- regular rhythm; no murmur Abdomen- normal bowel sounds, soft, nontender Extremities- no calf tenderness Neuro- alert, oriented x 3; PERRL, EOMI; no facial palsy; no dysarthria, no tremor Skin- warm & dry Discharge Data Allergies Allergy/AdvReac Type Severity Reaction Status Date / Time codeine AdvReac Severe upset Verified 11/01/17 03:02 stomach Consultations 01/08/19 19:58 ED Decision to Admit Stat 01/08/19 23:50 Consult Case Management - Discharge Planning Routine Hospital Course (1) Alcohol withdrawal: Sent from GI clinic for alcohol abuse Alcohol level on admission >3 Very silva today, might be from alcohol withdrawn Continue gabapentin and ativan for alcohol withdrawn protocol Monitor closely for signs of alcohol withdrawn or DT Last dose of ativan was last night On Librium 10mg BID, will decrease librium today Counseling on alcohol cessation Advised pt to go to to alcohol rehab (2) 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 Follow GI as an outpatient (3) Hepatitis C: Treated (4) COPD (chronic obstructive pulmonary disease): Secondary to smoking Not having any acute exacerbation (5) Anxiety and depression: Very anxious to leave today Received Ativan prn Will defer to PCP to consider to start on SSRI stable (6) Electrolyte abnormality: Possible related to alcohol abuse D/C IVF with K K 4.1 yesterday Monitor BMP Thrombocytopenia Mostly due to liver cirrhosis/alcohol abuse Plt increased to 32 No active sign of bleeding monitor CBC Tobacco abuse Very anxious to go outside to smoke Continue nicotine patch Counseling on smoking cessation Disposition Continue PT/OT Advised pt about inpatient alcohol rehab, she is interested in outpatient alcohol rehab Possible discharge today Total Time Total Time Spent Total Time Spent (In Minutes): 35 minutes Total Time Includes: Examination of the Patient, Discharge Planning, Medication Reconciliation, Communication With Other Providers and Other Discharge Plan Discharge Items Patient Disposition: Home - Self-Care Reason For Visit: DETOX REQUEST Discharge Diagnosis: Alcohol withdrawal Cirrhosis of liver Electrolyte abnormality Tobacco abuse Hx Hepatitis C Depression Anxiety Thrombocytopenia COPD Discharge Goals: Decrease discomfort Activity: Resume your previous activity Activity Comment: as tolerated Non-emergency contact: Primary Care Provider Call non-emergency contact if: you have any medication questions Follow-up/Referrals: Sumi Dailey, [Primary Care Provider] - Diet: Regular Addtl Provider Instructions: Follow up with your primary care provider in 1 week Follow up up with Gastroenterology Counseling on alcohol cessation call to arrange for alcohol rehab therapy Counseling on smoking cessation Fall precaution Consider physical and occupational therapy (Your physician can arrange that for you if needed) Prescriptions: New thiamine HCl (vitamin B1) [Vitamin B-1] 100 mg Tablet 100 mg PO QAM Qty: 30 RF: 0 folic acid 1 mg Tablet 1 mg PO QAM Qty: 30 RF: 0 hydroxyzine HCl 10 mg tablet 10 mg PO Q12H PRN (Reason: anxiety) Qty: 30 RF: 0 Continued albuterol sulfate 90 mcg/actuation Hfa Aerosol Inhaler 2 puff INHALATION Q6H PRN (Reason: Shortness Of Breath Or Wheezing) RF: 0 Incruse Ellipta 62.5 mcg/actuation Blister With Device 1 inh INHALATION DAILY RF: 0 Breo Ellipta 100-25 mcg/dose Blister With Device 1 inh INHALATION DAILY RF: 0 Stand-Alone Forms: [facility] Discharge Orders: Discharge Order (Routine); Ordered 01/13/19 Ordered By: Ramandeep Meza Admission Data Admit Date/Time: 01/08/19 22:20 Attending Provider: Ramandeep Meza Admit Provider: Lei Romero Primary Care Provider: Sumi Dailey Other Providers: Lei Romero ; Joselin Blackwell Service: Telemetry Other Interventions: Discharge Summary Assessment (RN) Last Done: 01/13/19 15:44 DC Date/Time DO NOT enter until pt leaves facility: 01/13/19 16:14
== END 2019-01-13 16:14 | disposition home or self-care (01) | DRG 897 ==
LOC: ED 17:35 → SUATTDRO 22:20 → 2N 22:20

== ENCOUNTER 2019-10-15 16:53 | Inpatient (IN) ==
[2019-10-15] MEDS ORDERED: ONDANSETRON INJ 2 MG/ML 2 ML VIAL IV STA (17:24)
[2019-10-15] MEDS ORDERED: PANTOprazole 80 MG in DEXTROSE 5% 100 ML IV ONE (17:30)
[2019-10-15] MEDS ORDERED: SODIUM CHLORIDE 0.9% 1000ML 1,000 ML IV SCH (17:30)
[2019-10-15] MEDS ORDERED: MULTI-VITAMIN INFUSION 10 ML, THIAMINE HCL 100 MG, FOLIC ACID 1 MG in SODIUM CHLORIDE 0... IV ONE (17:30)
--- NOTE | 2019-10-15 18:05 | XRay Report ---
XR chest 1V portable HISTORY: GI bleed. COMPARISON: Chest 06/25/2018. FINDINGS: The lungs are clear. Cardiac silhouette is normal in size. No pleural effusions. No pneumot horax. IMPRESSION: No acute process. ACT 112: Negative or not required by law. Electronically signed by: Jeremy Jones M.D. 10/15/2019 6:04 PM
[2019-10-15 18:12] LABS: Partial Thromboplastin Ratio 1.1; Partial Thromboplastin Time 30.2 Seconds (21.0-31.0); Prothrombin Time 19.3 Seconds (9.0-12.0)
[2019-10-15 18:15] LABS: Albumin Level 2.6 gm/dl (3.4-5.0); BUN Creatinine Ratio 22.8 (10-20); Calcium 8.1 mg/dl (8.5-10.1); Creatinine Clr Calc Pharmacy 35.9 ml/min; Est GFR (African American) 41.6; Est GFR (Non-African American) 35.9; Potassium 3.7 mmol/L (3.5-5.1)
[2019-10-15] MEDS ORDERED: SODIUM CHLORIDE 0.9% 250 ML IV PRN ×2 (18:15→18:32)
[2019-10-15 18:22] LABS: Albumin Globulin Ratio 0.7 (0.9-2); Bilirubin,Total 3.6 mg/dl (0.2-1); Globulin 3.8 gm/dl (2.5-4.0); Total Protein 6.4 gm/dl (6.4-8.2)
[2019-10-15 18:23] LABS: Hematocrit (blood only) 22.5 % (37-47); Hemoglobin 7.5 g/dL (12.0-16.0); Mean Corpuscular Hemoglobin 33.5 pg (25-34); Mean Corpuscular Hgb Conc 33.3 g/dL (32-36); Mean Corpuscular Volume 100.4 fL (80-100); Mean Platelet Volume 12.9 fL (7.4-10.4); Nucleated RBC # (auto) 0.03 K/uL (0-0); Nucleated RBC % (auto) 0.2 %; Platelet Count 55 K/uL (130-400); RDW Coefficient of Variation 17.1 % (11.5-14.5); RDW Standard Deviation 60.8 fL (36.4-46.3); Red Blood Count 2.24 M/uL (4.2-5.4)
[2019-10-15] MEDS ORDERED: PHYTONADIONE 5 MG in SODIUM CHLORIDE 0.9% 50 ML IV ONE (18:23)
[2019-10-15 18:24] LABS: Anisocytosis Present; Basophils # (auto) 0.02 K/uL (0-0.2); Basophils % (auto) 0.2 %; Immature Granulocytes # (auto) 0.07 K/uL (0.00-0.02); Immature Granulocytes % (auto) 0.6 %; Lymphocytes # (auto) 1.94 K/uL (1.2-3.4); Lymphocytes % (auto) 15.3 %; Monocytes # (auto) 2.58 K/uL (0.11-0.59); Monocytes % (auto) 20.3 %; Neutrophils # (auto) 8.09 K/uL (1.4-6.5); Neutrophils % (auto) 63.6 %; Platelet Estimate Decreased (Normal)
[2019-10-15] MEDS ORDERED: LORazepam 2 MG/4 ML VIAL IV STA (18:32)
[2019-10-15] MEDS: PANTOprazole 40 MG in DEXTROSE 5% 100 ML IV SCH ×2 (18:38→22:56)
--- NOTE | 2019-10-15 20:25 | Emergency Department Note ---
Entered by Jen Gallegos acting as a scribe for History of Present Illness General Chief complaint: Vomiting Stated complaint: VOMITING, BLOODY STOOLS SINCE TUESDAY Source: patient History of Present Illness Onset (ago): day(s) 2 Location: abdomen Pain Consistency: + other (persistent ) Maximum Pain Intensity: 8 Quality: + other (vomiting and diarrhea) Associated symptoms: + other (positive black, brown, and bloody vomit and stool; positive upper abdominal pain) The patient is a 53 year old female who presents to the Emergency Room with complaints of persistent vomiting and diarrhea that began 2 days prior to arrival. The patient states that both her stool and her vomit are black, brown, and bloody. She reports upper abdominal pain during this time. The patient denies the use of blood thinners and denies a history of blood transfusions. The patient states that she does still drink alcohol with her history of alcohol abuse. She states that her last drink was just prior to her symptoms beginning. The patient states that she previously had bloody stools several years ago, but states that this was found to be pancreatitis. The patient reports that she is still a smoker. Home Medications Home Medications Medication Instructions Recorded Confirmed Type Breo Ellipta 1 inh INHALATION DAILY 01/08/19 10/15/19 History Incruse Ellipta 1 inh INHALATION DAILY 01/08/19 10/15/19 History albuterol sulfate 2 puff INHALATION Q6H PRN 01/08/19 10/15/19 History folic acid 1 mg PO QAM #30 tab 01/13/19 10/15/19 Rx hydroxyzine HCl 10 mg PO Q12H PRN #30 tab 01/13/19 10/15/19 Rx thiamine HCl (vitamin B1) [Vitamin 100 mg PO QAM #30 tab 01/13/19 10/15/19 Rx B-1] Allergies Allergy/AdvReac Type Severity Reaction Status Date / Time codeine AdvReac Severe upset Verified 10/15/19 18:34 stomach Past Med/Surg History Medical History (Updated 10/16/19 @ 16:13 by Nancy Lopez MD) Acute blood loss anemia LAYO (acute kidney injury) Alcohol abuse (Chronic) Alcohol abuse (Acute) Cirrhosis of liver (Chronic 11/21/12) COPD (chronic obstructive pulmonary disease) Hepatitis C Hepatitis, alcoholic (Chronic 11/21/12) Portal hypertension Thrombocytopenia Transaminitis UGIB (upper gastrointestinal bleed) Surgical History (Updated 10/16/19 @ 16:11 by Nancy Lopez MD) History of endoscopy Family History Other Family history non-contributory Social History Preferred Language: German Communication Ability: Effective Statistical Typist Required: No Beliefs That Will Affect Care: None Current Living Situation: Spouse Other Information That Helps Us Care for You: No Feels Safe at Home: Yes Safety Concerns: Feels Safe At This Time Smoking Status: Current every day smoker Tobacco Type: cigarettes ; Cigarettes Per Day: 1/2 ppd ; Hx Alcohol Use: Yes Alcohol type: hard liquor Hx Substance Use: No Review of Systems See HPI for pertinent positives & negatives. and A total of 10 systems reviewed and were otherwise negative Physical Exam Vital Signs Vital Signs - 24 hr 10/15/19 17:12 10/15/19 17:32 10/15/19 17:43 Temperature 37.0 C Temperature Source Oral Pulse Rate 134 H 106 H Pulse Rate [Right Finger] 116 H 97 H Pulse Rhythm Pulse Rhythm [Right Finger] Pulse Strength Pulse Strength [Right Finger] Respiratory Rate 20 18 16 Respiratory Effort / Characteristics Non-Labored Spontaneous Non-Labored Respiratory Depth Normal Normal Respiratory Pattern Regular Blood Pressure 71/45 L Blood Pressure [Right Arm] 105/61 91/62 L Blood Pressure Mean 53 Blood Pressure Mean [Right Arm] 75 71 Blood Pressure Position Sitting Blood Pressure Position [Right Arm] Pulse Oximetry 98 100 99 Oxygen Delivery Method Room Air Room Air Room Air Sepsis Recent Fever Within 48 Hours No Sepsis New/Unexplained Change in Mental Status No Sepsis Action Taken by Nursing No Action Required 10/15/19 17:56 10/15/19 18:06 10/15/19 18:33 Temperature Temperature Source Pulse Rate Pulse Rate [Right Finger] 95 H 95 H 102 H Pulse Rhythm Pulse Rhythm [Right Finger] Pulse Strength Pulse Strength [Right Finger] Respiratory Rate 14 20 24 Respiratory Effort / Characteristics Non-Labored Respiratory Depth Normal Respiratory Pattern Blood Pressure Blood Pressure [Right Arm] 93/47 L 106/65 86/64 L Blood Pressure Mean Blood Pressure Mean [Right Arm] 62 78 71 Blood Pressure Position Blood Pressure Position [Right Arm] Pulse Oximetry 100 99 99 Oxygen Delivery Method Room Air Room Air Room Air Sepsis Recent Fever Within 48 Hours Sepsis New/Unexplained Change in Mental Status Sepsis Action Taken by Nursing 10/15/19 18:44 10/15/19 19:16 10/15/19 19:19 Temperature 37.1 C Temperature Source Oral Pulse Rate Pulse Rate [Right Finger] 100 H 102 H Pulse Rhythm Pulse Rhythm [Right Finger] Regular Pulse Strength Pulse Strength [Right Finger] Normal Respiratory Rate 21 18 Respiratory Effort / Characteristics Respiratory Depth Normal Respiratory Pattern Blood Pressure Blood Pressure [Right Arm] 96/58 L 70/38 L Blood Pressure Mean Blood Pressure Mean [Right Arm] 70 48 Blood Pressure Position Blood Pressure Position [Right Arm] Lying Pulse Oximetry 99 96 Oxygen Delivery Method Room Air Room Air Sepsis Recent Fever Within 48 Hours Sepsis New/Unexplained Change in Mental Status Sepsis Action Taken by Nursing 10/15/19 19:20 10/15/19 19:27 10/15/19 19:33 Temperature 37.1 C Temperature Source Oral Pulse Rate 100 H Pulse Rate [Right Finger] 99 H 96 H Pulse Rhythm Pulse Rhythm [Right Finger] Regular Regular Pulse Strength Pulse Strength [Right Finger] Normal Normal Respiratory Rate 18 18 18 Respiratory Effort / Characteristics Respiratory Depth Normal Normal Respiratory Pattern Blood Pressure 72/43 L Blood Pressure [Right Arm] 79/42 L 66/33 L Blood Pressure Mean 52 Blood Pressure Mean [Right Arm] 54 44 Blood Pressure Position Lying Blood Pressure Position [Right Arm] Lying Lying Pulse Oximetry 97 96 100 Oxygen Delivery Method Room Air Room Air Sepsis Recent Fever Within 48 Hours Sepsis New/Unexplained Change in Mental Status Sepsis Action Taken by Nursing 10/15/19 19:48 10/15/19 19:51 10/15/19 20:03 Temperature 37.2 C 37.2 C Temperature Source Oral Oral Pulse Rate 96 H 99 H Pulse Rate [Right Finger] 100 H Pulse Rhythm Regular Regular Pulse Rhythm [Right Finger] Regular Pulse Strength Normal Normal Pulse Strength [Right Finger] Normal Respiratory Rate 18 20 18 Respiratory Effort / Characteristics Respiratory Depth Normal Respiratory Pattern Blood Pressure 85/46 L 74/42 L Blood Pressure [Right Arm] 85/46 L Blood Pressure Mean 59 52 Blood Pressure Mean [Right Arm] 59 Blood Pressure Position Lying Lying Blood Pressure Position [Right Arm] Lying Pulse Oximetry 95 96 96 Oxygen Delivery Method Room Air Sepsis Recent Fever Within 48 Hours Sepsis New/Unexplained Change in Mental Status Sepsis Action Taken by Nursing 10/15/19 20:14 Temperature Temperature Source Pulse Rate 103 H Pulse Rate [Right Finger] Pulse Rhythm Pulse Rhythm [Right Finger] Pulse Strength Pulse Strength [Right Finger] Respiratory Rate 18 Respiratory Effort / Characteristics Respiratory Depth Respiratory Pattern Blood Pressure 78/42 L Blood Pressure [Right Arm] Blood Pressure Mean Blood Pressure Mean [Right Arm] Blood Pressure Position Blood Pressure Position [Right Arm] Pulse Oximetry 95 Oxygen Delivery Method Room Air Sepsis Recent Fever Within 48 Hours Sepsis New/Unexplained Change in Mental Status Sepsis Action Taken by Nursing Vital signs reviewed. General: Chronically ill-appearing 53 year old female. Smells of tobacco. HEENT: No scleral icterus, PERRLA, neck supple. Atraumatic. Cardiovascular: Hypotensive. Tachycardic rate and regular rhythm, no extra sounds. Pulmonary: Clear to auscultation bilaterally, normal work of breathing. Abdomen: Minimal diffuse abdominal pain. Soft, nondistended, positive bowel sounds. Rectal: Guaiac positive melenic stool. Normal mucosa, no mass appreciated. Musculoskeletal: Atraumatic, no peripheral edema. Neurologic: Patient awake alert and oriented x 3 Skin: Warm, dry, no rash Course Course 172: Past medical records reviewed. The patient was evaluated in room B1. A complete history and physical exam was performed. 1826: I obtained consent for a blood transfusion from the patient. 1856: I discussed the case with Catia Gutierrez PA-C who accepts the patient for further evaluation under Dr. Romero-Hospitalist service. Administered Medications Fluticasone/Vilanterol (Breo Ellipta 100/25 Mcg Inh) 1 puffs INH DAILY [facility] Stop: 11/15/19 08:59 Last Admin: 10/16/19 08:09 Dose: 1 puffs Documented by: [id number] Pantoprazole Sodium 40 mg/ (Dextrose) 100 mls @ 20 mls/hr IV Q5H [facility] Stop: 11/14/19 17:44 Last Admin: 10/17/19 02:19 Dose: 20 mls/hr Documented by: [id number] Infusion: 10/17/19 02:13 Dose: 20 mls/hr Documented by: [id number] Admin: 10/16/19 21:13 Dose: 20 mls/hr Documented by: [id number] Infusion: 10/16/19 21:08 Dose: 20 mls/hr Documented by: [id number] Infusion: 10/16/19 17:10 Dose: 20 mls/hr Documented by: [id number] Infusion: 10/16/19 16:00 Dose: 0 mls/hr Documented by: [id number] Admin: 10/16/19 14:58 Dose: 20 mls/hr Documented by: [id number] Infusion: 10/16/19 14:32 Dose: 20 mls/hr Documented by: [id number] Admin: 10/16/19 09:32 Dose: 20 mls/hr Documented by: [id number] Infusion: 10/16/19 09:15 Dose: 20 mls/hr Documented by: [id number] Infusion: 10/16/19 07:06 Dose: 20 mls/hr Documented by: [id number] Admin: 10/16/19 04:15 Dose: 20 mls/hr Documented by: [id number] Infusion: 10/16/19 03:56 Dose: 20 mls/hr Documented by: [id number] Admin: 10/15/19 22:56 Dose: 20 mls/hr Documented by: [id number] Infusion: 10/15/19 22:56 Dose: 20 mls/hr Documented by: [id number] Admin: 10/15/19 18:38 Dose: 20 mls/hr Documented by: [id number] Octreotide Acetate 500 mcg/ (Sodium Chloride) 105 mls @ 10.5 mls/hr IV .Q10H [facility] Stop: 11/14/19 20:00 Last Admin: 10/17/19 02:06 Dose: 50 mcg/hr, 10.5 mls/hr Documented by: [id number] Infusion: 10/17/19 02:06 Dose: 50 mcg/hr, 10.5 mls/hr Documented by: [id number] Admin: 10/16/19 17:09 Dose: 50 mcg/hr, 10.5 mls/hr Documented by: [id number] Infusion: 10/16/19 16:00 Dose: 0 mcg/hr, 0 mls/hr Documented by: [id number] Infusion: 10/16/19 07:06 Dose: 50 mcg/hr, 10.5 mls/hr Documented by: [id number] Admin: 10/16/19 05:44 Dose: 50 mcg/hr, 10.5 mls/hr Documented by: [id number] Infusion: 10/16/19 05:44 Dose: 50 mcg/hr, 10.5 mls/hr Documented by: [id number] Admin: 10/15/19 21:13 Dose: 50 mcg/hr, 10.5 mls/hr Documented by: [id number] Thiamine HCl 100 mg/ Syringe 10 mls @ 2 mls/min IV QAM [facility] Stop: 11/15/19 08:59 Last Admin: 10/16/19 08:09 Dose: 2 mls/min Documented by: [id number] Folic Acid 1 mg/ Syringe 10 mls @ 5 [facility] [place]: 11/15/19 08:59 Last Admin: 10/16/19 08:09 Dose: 5 mls/min Documented by: [id number] Parenteral Electrolytes (Normosol-R) 1,000 mls @ 80 mls/hr IV .[id number] [facility] Stop: 11/15/19 09:59 Last Admin: 10/17/19 01:07 Dose: 80 mls/hr Documented by: [id number] Infusion: 10/17/19 01:07 Dose: 80 mls/hr Documented by: [id number] Infusion: 10/16/19 17:11 Dose: 80 mls/hr Documented by: [id number] Infusion: 10/16/19 16:00 Dose: 0 mls/hr Documented by: [id number] Infusion: 10/16/19 13:21 Dose: 80 mls/hr Documented by: [id number] Infusion: 10/16/19 10:30 Dose: 0 mls/hr Documented by: [id number] Admin: 10/16/19 10:01 Dose: 80 mls/hr Documented by: [id number] Ceftriaxone Sodium 1,000 mg/ (Dextrose) 50 mls @ 100 mls/hr IV Q24H [facility]; Protocol Stop: 10/26/19 13:59 Last Infusion: 10/16/19 14:22 Dose: 0 mls/hr Documented by: [id number] Admin: 10/16/19 13:49 Dose: 100 mls/hr Documented by: [id number] Potassium Phosphate 15 mmol/ (Sodium Chloride) 255 mls @ 100 mls/hr IV ONE ONE Stop: 10/17/19 08:17 Last Admin: 10/17/19 05:56 Dose: 100 mls/hr Documented by: [id number] Ondansetron HCl (Zofran) 4 mg IV Q6H PRN PRN Reason: Nausea Stop: 11/15/19 04:44 Last Admin: 10/16/19 04:49 Dose: 4 mg Documented by: [id number] Discontinued Medications Sodium Chloride (Nss 1000ml) 1,000 mls @ 100 mls/hr IV .Q10H [facility] Stop: 10/16/19 03:29 Last Infusion: 10/15/19 21:08 Dose: 0 mls/hr Documented by: [id number] Admin: 10/15/19 17:40 Dose: 100 mls/hr Documented by: [id number] Pantoprazole Sodium 80 mg/ (Dextrose) 120 mls @ 480 mls/hr IV ONE ONE Stop: 10/15/19 17:44 Last Infusion: 10/15/19 18:42 Dose: 0 mls/hr Documented by: [id number] Admin: 10/15/19 18:20 Dose: 480 mls/hr Documented by: [id number] Multivitamins 10 ml/ Thiamine HCl 100 mg/ Folic Acid 1 mg/Sodium Chloride 1,011.2 mls @ 1,011.2 mls/hr IV .Q1H ONE Stop: 10/15/19 18:29 Last Infusion: 10/15/19 19:57 Dose: 0 mls/hr Documented by: [id number] Admin: 10/15/19 18:20 Dose: 1,011.2 mls/hr Documented by: [id number] Phytonadione 5 mg/ Sodium (Chloride) 50.5 mls @ 101 mls/hr IV ONE ONE Stop: 10/15/19 18:52 Last Infusion: 10/15/19 19:57 Dose: 0 mls/hr Documented by: [id number] Admin: 10/15/19 19:05 Dose: 101 mls/hr Documented by: [id number] Lorazepam (Ativan) 2 mg in 4 mls @ 4 mls/min IV NOW STA Stop: 10/15/19 18:33 Last Admin: 10/15/19 18:50 Dose: 4 mls/min Documented by: [id number] Sodium Chloride (Nss 1000ml) 1,000 mls @ 125 mls/hr IV .Q8H [facility] Stop: 11/14/19 20:38 Last Infusion: 10/16/19 10:00 Dose: 0 mls/hr Documented by: [id number] Admin: 10/16/19 08:53 Dose: 125 mls/hr Documented by: [id number] Infusion: 10/16/19 08:53 Dose: 125 mls/hr Documented by: [id number] Infusion: 10/16/19 07:06 Dose: 125 mls/hr Documented by: [id number] Infusion: 10/16/19 04:00 Dose: 125 mls/hr Documented by: [id number] Infusion: 10/16/19 02:29 Dose: 0 mls/hr Documented by: [id number] Admin: 10/16/19 00:11 Dose: 125 mls/hr Documented by: [id number] Piperacillin Sod/Tazobactam (Sod 3.375 gm/ Dextrose) 115 mls @ 28.75 mls/hr IV Q8H [facility]; Protocol Stop: 10/26/19 01:59 Last Infusion: 10/16/19 13:21 Dose: 0 mls/hr Documented by: [id number] Admin: 10/16/19 09:32 Dose: 28.8 mls/hr Documented by: [id number] Infusion: 10/16/19 06:34 Dose: 0 mls/hr Documented by: [id number] Admin: 10/16/19 02:29 Dose: 28.8 mls/hr Documented by: [id number] Piperacillin Sod/Tazobactam (Sod 3.375 gm/ Dextrose) 115 mls @ 230 mls/hr IV ONE STA; Protocol Stop: 10/15/19 21:22 Last Infusion: 10/15/19 22:30 Dose: 0 mls/hr Documented by: [id number] Admin: 10/15/19 21:12 Dose: 230 mls/hr Documented by: [id number] Calcium Gluconate 1,000 mg/ (Sodium Chloride) 60 mls @ 240 mls/hr IV NOW STA Stop: 10/16/19 03:02 Last Infusion: 10/16/19 03:51 Dose: 0 mls/hr Documented by: [id number] Admin: 10/16/19 02:59 Dose: 240 mls/hr Documented by: [id number] Magnesium Sulfate/Dextrose (Magnesium Sulfate / D5w) 1 gm in 100 mls @ 100 mls/hr IV ONE ONE Stop: 10/16/19 07:25 Last Infusion: 10/16/19 07:54 Dose: 0 mls/hr Documented by: [id number] Infusion: 10/16/19 07:06 Dose: 100 mls/hr Documented by: [id number] Admin: 10/16/19 06:51 Dose: 100 mls/hr Documented by: [id number] Magnesium Sulfate/Dextrose (Magnesium Sulfate / D5w) 1 gm in 100 mls @ 100 m ls/hr IV ONE ONE Stop: 10/16/19 09:44 Last Infusion: 10/16/19 09:30 Dose: 0 mls/hr Documented by: [id number] Admin: 10/16/19 08:30 Dose: 100 mls/hr Documented by: [id number] Potassium Phosphate 21 mmol/ (Sodium Chloride) 507 mls @ 88 mls/hr IV ONE ONE Stop: 10/16/19 14:30 Last Infusion: 10/16/19 14:58 Dose: 0 mls/hr Documented by: [id number] Admin: 10/16/19 08:53 Dose: 88 mls/hr Documented by: [id number] Calcium Gluconate 1,000 mg/ (Sodium Chloride) 60 mls @ 240 mls/hr IV NOW ONE Stop: 10/16/19 10:29 Last Infusion: 10/16/19 10:29 Dose: 0 mls/hr Documented by: [id number] Admin: 10/16/19 10:12 Dose: 240 mls/hr Documented by: [id number] Potassium Chloride (K Nitin / Wtr) 10 meq in 100 mls @ 100 mls/hr IV Q1H [facility] Stop: 10/17/19 07:26 Last Admin: 10/17/19 07:02 Dose: 100 mls/hr Documented by: [id number] Infusion: 10/17/19 06:57 Dose: 100 mls/hr Documented by: [id number] Admin: 10/17/19 05:57 Dose: 100 mls/hr Documented by: [id number] Ondansetron HCl (Zofran) 4 mg IV ONE STA Stop: 10/15/19 17:25 Last Admin: 10/15/19 17:40 Dose: 4 mg Documented by: [id number] Ondansetron HCl (Zofran) Confirm Administered Dose 4 mg .ROUTE .STK-MED ONE Stop: 10/16/19 04:48 Last Admin: 10/16/19 04:52 Dose: Not Given Documented by: [id number] Critical Care Time Critical Care Time: Yes Total Critical Care Time: 47 I have personally spent 47 minutes of critical care time in the direct management of this patient. This includes bedside care, interpretation of diagnostic studies, and testing, discussion with consultants, patient, and family members, and other required patient management activities. This 47 minutes is in excess of all separately billable procedures. Medical Decision Making Differential Diagnosis Differential diagnosis includes etiologies such as diverticulosis, AVM, coagulopathy, colitis, inflammatory bowel disease, malignancy, Viola-Darby tear, esophagitis, peptic ulcer disease, variceal bleed, gastritis, epistaxis, fissure, hemorrhoids, as well as others were entertained. Medical Records Attestation: I reviewed the patient's medical records. Home Medications Current Medication List: was personally reviewed by me Laboratory Data Attestation: I reviewed the patient's lab results. Result diagrams: 10/17/19 04:40 10/17/19 04:40 Lab Results 10/15/19 10/15/19 10/15/19 Range/Units 17:37 17:37 17:37 WBC 12.70 H (4.8-10.8) K/uL RBC 2.24 L (4.2-5.4) M/uL Hgb 7.5 L (12.0-16.0) g/dL Hct 22.5 L (37-47) % MCV 100.4 H (80-100) fL MCH 33.5 (25-34) pg MCHC 33.3 (32-36) g/dL RDW Std Deviation 60.8 H (36.4-46.3) fL RDW Coeff of Radha 17.1 H (11.5-14.5) % Plt Count 55 L (130-400) K/uL MPV 12.9 H (7.4-10.4) fL Immature Gran % (Auto) 0.6 % Neut % (Auto) 63.6 % Lymph % (Auto) 15.3 % [place] % (Auto) 20.3 % Eos % (Auto) 0.0 % Baso % (Auto) 0.2 % Immature Gran # (Auto) 0.07 H (0.00-0.02) K/uL Neut # (Auto) 8.09 H (1.4-6.5) K/uL Lymph # (Auto) 1.94 (1.2-3.4) K/uL [place] # (Auto) 2.58 H (0.11-0.59) K/uL Eos # (Auto) 0.00 (0-0.5) K/uL Baso # (Auto) 0.02 (0-0.2) K/uL Absolute Nucleated RBC 0.03 H (0-0) K/uL Nucleated RBC % (auto) 0.2 % Platelet Estimate Decreased L (Normal) Anisocytosis Present PT 19.3 H (9.0-12.0) Seconds INR 2.0 H (0.9-1.1) APTT 30.2 (21.0-31.0) Seconds PTT Ratio 1.1 Sodium (136-145) mmol/L Potassium (3.5-5.1) mmol/L Chloride (98-107) mmol/L Carbon Dioxide (21-32) mmol/L Anion Gap (3-11) BUN (7-18) mg/dl Creatinine (0.6-1.2) mg/dl Est Cr Clr Drug Dosing ml/min Est GFR ( Amer) Est GFR (Non-Af Amer) BUN/Creatinine Ratio (10-20) Glucose (70-99) mg/dl Calcium (8.5-10.1) mg/dl Total Bilirubin (0.2-1) mg/dl AST (15-37) U/L ALT (12-78) U/L Alkaline Phosphatase (45-117) U/L Total Creatine Kinase (26-192) U/L Total Protein (6.4-8.2) gm/dl Albumin (3.4-5.0) gm/dl Globulin (2.5-4.0) gm/dl Albumin/Globulin Ratio (0.9-2) POC Stool Occult Blood (Negative) Blood Type B Positive Blood Type Recheck Antibody Screen NEGATIVE Crossmatch See Detail 10/15/19 10/15/19 10/15/19 Range/Units 17:37 18:34 19:03 WBC (4.8-10.8) K/uL RBC (4.2-5.4) M/uL Hgb (12.0-16.0) g/dL Hct (37-47) % MCV (80-100) fL MCH (25-34) pg MCHC (32-36) g/dL RDW Std Deviation (36.4-46.3) fL RDW Coeff of Radha (11.5-14.5) % Plt Count (130-400) K/uL MPV (7.4-10.4) fL Immature Gran % (Auto) % Neut % (Auto) % Lymph % (Auto) % [place] % (Auto) % Eos % (Auto) % Baso % (Auto) % Immature Gran # (Auto) (0.00-0.02) K/uL Neut # (Auto) (1.4-6.5) K/uL Lymph # (Auto) (1.2-3.4) K/uL [place] # (Auto) (0.11-0.59) K/uL Eos # (Auto) (0-0.5) K/uL Baso # (Auto) (0-0.2) K/uL Absolute Nucleated RBC (0-0) K/uL Nucleated RBC % (auto) % Platelet Estimate (Normal) Anisocytosis PT (9.0-12.0) Seconds INR (0.9-1.1) APTT (21.0-31.0) Seconds PTT Ratio Sodium 132 L (136-145) mmol/L Potassium 3.7 (3.5-5.1) mmol/L Chloride 93 L (98-107) mmol/L Carbon Dioxide 20 L (21-32) mmol/L Anion Gap 19.0 H (3-11) BUN 37 H (7-18) mg/dl Creatinine 1.61 H (0.6-1.2) mg/dl Est Cr Clr Drug Dosing 35.9 ml/min Est GFR ( Amer) 41.6 Est GFR (Non-Af Amer) 35.9 BUN/Creatinine Ratio 22.8 H (10-20) Glucose 93 (70-99) mg/dl Calcium 8.1 L (8.5-10.1) mg/dl Total Bilirubin 3.6 H (0.2-1) mg/dl AST 958 H (15-37) U/L ALT 208 H (12-78) U/L Alkaline Phosphatase 105 (45-117) U/L Total Creatine Kinase 204 H (26-192) U/L Total Protein 6.4 (6.4-8.2) gm/dl Albumin 2.6 L (3.4-5.0) gm/dl Globulin 3.8 (2.5-4.0) gm/dl Albumin/Globulin Ratio 0.7 L (0.9-2) POC Stool Occult Blood Positive A (Negative) Blood Type Blood Type Recheck B Positive Antibody Screen Crossmatch Imaging Data Radiologist's Impression: Radiology results as stated below per my review and the radiologist's interpretation: XR chest 1V portable HISTORY: GI bleed. COMPARISON: Chest 06/25/2018. FINDINGS: The lungs are clear. Cardiac silhouette is normal in size. No pleural effusions. No pneumothorax. IMPRESSION: No acute process. ACT 112: Negative or not required by law. Electronically signed by: Jeremy Jones M.D. 10/15/2019 6:04 PM ECG Data Attestation: I personally reviewed and interpreted this ECG as follows: Indication: + weakness Rate (beats per minute): 109 Rhythm: + sinus tachycardia ECG Intervals/blocks: + Prolonged QT (468) ECG ST segments: + Nonspecific ST abnormalities ECG Findings: no PACs and no PVCs Additional Comments: An order was placed for cardiac monitoring and the patient is found to be in a sinus tachycardia at 115 bpm. Blood Pressure Blood Pressure Findings: Low blood pressure Blood Pressure Disposition: further management by hospitalist MDM Narrative This patient was evaluated and appeared to be in no significant distress. IV access was obtained and laboratory work was drawn. The patient was placed on the school lunch monitor and found to be hypotensive and tachycardic. IV fluids were initiated. A banana bag was ordered. Patient was typed and crossed for 2 units. Protonix bolus and IV drip were initiated. Patient does have guaiac positive melanotic stool. She was given 5 mg of IV vitamin K. Patient complained of feeling shaky and was given 2 mg of IV Ativan due to the complicating factor of alcohol withdrawal. Chest x-ray was obtained and is negative for focal infiltrate. EKG confirms a sinus tachycardia. Patient was consented for blood transfusion and ordered 1 unit as her hemoglobin was 7.5. After her IV hydration, I imagine this number will be much less due to dilution. Patient was informed of the severity of the illness. I did discuss the case with the hospitalist service who will evaluate the patient for admission and further management. Impression & Plan GI bleed, Cirrhosis of liver, Alcohol withdrawal, Elevated INR Discharge Plan Visit Data *Final* Discharge Date/Time: 10/15/19 20:14 Chief Complaint: Vomiting Stated Complaint: VOMITING, BLOODY STOOLS SINCE TUESDAY ED Provider: Zoila Drummond Discharge Problem: GI bleed, Cirrhosis of liver, Alcohol withdrawal, Elevated INR Patient Disposition: Admitted As Inpatient Discharge Instructions Interventions: ED Discharge Assessment Last Done: 10/15/19 20:14 Discharge Problem: GI bleed Qualifiers: GI bleed type/associated pathology: unspecified gastrointestinal hemorrhage type Qualified Code(s): K92.2 - Gastrointestinal hemorrhage, unspecified Cirrhosis of liver Qualifiers: Hepatic cirrhosis type: alcoholic cirrhosis Ascites presence: unspecified Qualified Code(s): K70.30 - Alcoholic cirrhosis of liver without ascites Alcohol withdrawal Qualifiers: Complication of substance-induced condition: uncomplicated Qualified Code(s): F10.230 - Alcohol dependence with withdrawal, uncomplicated The scribe's documentation has been prepared under my direction and personally reviewed by me in its entirety. I confirm that the note above accurately reflects all work, treatment, procedures, and medical decision making performed by me.
[2019-10-15] MEDS ORDERED: hydrOXYzine HCl 10 MG TAB PO PRN (20:39)
[2019-10-15] MEDS ORDERED: PIPERACILL/TAZOBAC CONSULT ACTIVE PRN (20:39)
[2019-10-15] MEDS ORDERED: LORazepam 1.5 MG/3 ML VIAL IV PRN (20:39)
[2019-10-15] MEDS ORDERED: ALBUTEROL HFA 8 GM INHALER INH PRN (20:39)
[2019-10-15] MEDS ORDERED: ICU PROTOCOL FOR HYPERGLYCEMIA PRN (20:39)
[2019-10-15] MEDS ORDERED: PIPERACILLIN/TAZOBACTAM 3.375 GM in DEXTROSE 5% 100 ML IV STA (20:53)
--- NOTE | 2019-10-15 21:02 | Critical Care Consultation ---
Date of Consultation October 15, 2019 Assessment & Plan (1) Admitted to intensive care unit: Reason Critically Ill: 53-year-old female with concerning upper GI bleed in the setting of acute on chronic hepatic failure with transaminitis and elevated INR requiring PRBC transfusion in the setting of acute blood loss anemia and close hemodynamic monitoring with labile blood pressures noted in the emergency department. NEURO - * CAM ICU: NEGATIVE * Alcohol abuse: * Previous history of alcohol withdrawal requiring Ativan and Librium use. * Without concerning exam findings at this time. * Would start with low-dose benzodiazepines initially given the patient's hepatic insufficiency and n.p.o. status in the setting of upper GI bleed. * AWSS scale ordered. * Agree with thiamine and folate daily. CARDIAC/VASCULAR - * Hypotension: * Patient appears to be baseline hypotensive, however concerning in the setting of acute blood loss anemia. * Transfuse PRBCs with goal to maintain maps of greater than 60. * EKG: Sinus tachycardia at [address]/T wave abnormalities noted. QTc 468 ms * Monitor on telemetry. RESPIRATORY - * COPD secondary to longstanding history of smoking. * Home inhalers as needed. * Supplemental oxygen as needed. GI/NUTRITION - * Upper GI bleed: * Presenting with coffee-ground emesis with occasional bright red blood. Heme positive stools. * Patient with noted history of alcoholic gastritis in the past. * No sulma hematemesis at this point, thankfully. * Continue with Protonix drip. * Agree with antibiotic coverage for SBP prophylaxis. * Agree with octreotide at this point with unknown history of varices and the patient with known hepatic portal hypertension. * Gastroenterology consulted. Recommendations emergency department for continued maximization of current status. * Patient likely to require upper endoscopy during hospitalization. Will keep n.p.o. at this time. * Acute hepatic failure: * Likely acute on chronic secondary to alcoholic cirrhosis with concomitant history of hepatitis C. * Trend liver enzymes. * Initially received vitamin K for an INR greater than 2. * If requiring increasing amounts of blood product, will add FFP. RENAL/LYTES - * LAYO: * Noted when compared to previous PRP. * Possibly from persistent hypotension secondary to anemia and hypoperfusion. * Will continue to trend with addition of blood products as well as IV fluids. * Will add Easmtan catheter to assess urine output as hepatorenal syndrome is certainly not off the table at this point. * IVF: Normosol at 125 mL/h. - * Eastman in place - Strict I&Os. ENDO - * No history of diabetes or thyroid disease. * BSGs per unit protocol. ISS --> gtt per unit policy. HEME - * Acute blood loss anemia: * Secondary to upper GI bleed. * Concerning in the liver failure patient. * Initially ordered 2 units PRBCs. * No sulma bleeding noted at this time. * If requiring more than the initial 2 units, will add FFP at a 3-1 ratio. * Consider addition of platelets given her chronic thrombocytopenia. * Thrombocytopenia: * Likely secondary to bone marrow suppression from chronic alcohol abuse. * Appears to be chronic in nature. * Concerning in the bleeding patient. * Will add addition of platelets if patient noted to have worsening or persistent bleeding in the setting of upper GI bleed. ID - * SBP prophylaxis: * Continue with Zosyn at this time. * Can likely de-escalate to Rocephin soon. LINES/IV ACCESS - * PIVs x3 * Eastman catheter * Patient verbally consents to central line, arterial line, and intubation if necessary. DVT PROPHYLAXIS - * Hold on chemoprophylaxis secondary to upper GI bleed, thrombocytopenia, and elevated INR in the setting of liver failure. * SCDs I have personally spent 60 minutes of critical care time in the direct management of this patient. This is a life/limb threatening event. This includes time spent evaluating patient, direct bedside care, chart review, placing orders, interpretation of diagnostic studies, discussion with consultants, patient, and family members, as well as other required patient management activities. This time is exclusive of all separately billable procedures, and teaching time and separate from and in addition to any other critical care service time. Thank you for allowing us to participate in the care of this patient. Please refer to my attending physician's documentation for any further recommendations. (2) UGIB (upper gastrointestinal bleed): (3) Elevated INR: (4) Cirrhosis of liver: (5) Anxiety and depression: (6) COPD (chronic obstructive pulmonary disease): (7) Hepatitis C: (8) Hyperbilirubinemia: (9) Cirrhosis of liver: (10) Alcohol abuse: (11) Portal hypertension: (12) LAYO (acute kidney injury): (13) Liver failure, acute: (14) Transaminitis: (15) Acute blood loss anemia: (16) Thrombocytopenia: Supervising Physician Co-Signing Physician Notes I have personally evaluated and examined this patient. I agree with assessment and plan of Daniel Moreno PA-C. Please refer to my resident's documentation for my impression and management. History of Present Illness Attending Physician: Patria Holm MD History of Present Illness Patient is a 54-year-old female with a significant past medical history of alcoholism, alcohol induced cirrhosis, hepatitis C -treatment for cure, COPD, alcohol withdrawal with delirium, and portal hypertension. Patient reports drinking approximately 1 pint of bourbon per day. She has been sober occasionally, but has been drinking for the last several weeks. She reports that her last drink was on Tuesday night. On Tuesday, she noticed coffee- ground emesis as well as black/tarry stools. She would occasionally have episodes of sulma red blood in her vomit as well. Her vomiting persisted today which prompted visit to the emergency department. The patient reports that she has been short of breath, but equates this to her COPD and reports that her symptoms resolved with use of inhaler. She does report feeling positionally lightheaded. She denies any prior history of upper GI bleeding. She reports that she has undergone upper endoscopy in the past which demonstrated gastritis for which she was placed on medications. She denies the use of a PPI at this point. She is uncertain as to history of esophageal varices. She reports no history of variceal bleed. She follows regularly with [facility] gastroenterology. Upon arrival in the ICU, the patient is awake, alert, and oriented. Patient was noted to have a drop in her H&H from recent hospitalization. She received an order for 2 units PRBCs and was placed on Protonix drip as well as octreotide. She received vitamin K for an elevated INR. Reported discussions with GI were for maximization of care prior to intervention. Patient reports some epigastric discomfort and nausea, but denies any significant pain. Particularly, the patient denies any chest pain, palpitations, pleuritic pain, lower abdominal pain, hematochezia, hematuria, or dysuria. Patient reports a significant smoking history as well. Allergies Allergy/AdvReac Type Severity Reaction Status Date / Time codeine AdvReac Severe upset Verified 10/15/19 18:34 stomach Home Medications Home Medications Medication Instructions Recorded Confirmed Type Breo Ellipta 1 inh INHALATION DAILY 01/08/19 10/15/19 History Incruse Ellipta 1 inh INHALATION DAILY 01/08/19 10/15/19 History albuterol sulfate 2 puff INHALATION Q6H PRN 01/08/19 10/15/19 History folic acid 1 mg PO QAM #30 tab 01/13/19 10/15/19 Rx hydroxyzine HCl 10 mg PO Q12H PRN #30 tab 01/13/19 10/15/19 Rx thiamine HCl (vitamin B1) [Vitamin 100 mg PO QAM #30 tab 01/13/19 10/15/19 Rx B-1] Patient History Medical History Alcohol abuse (Chronic) Alcohol abuse (Acute) Cirrhosis of liver (Chronic 11/21/12) Hepatitis, alcoholic (Chronic 11/21/12) Family History Other Family history non-contributory Social History Preferred Language: Maltese Communication Ability: Effective 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 All else were negative. Physical Exam Physical Exam: VITAL SIGNS - Vital signs and nursing notes were reviewed. GENERAL - 53-year-old female appearing her stated age who is in no acute distress. Communicates well with provider and answers questions appropriately. SKIN - Without rashes. HEAD - NC/AT. EYES - PERRL with EOMI bilaterally. Sclera anicteric. Palpebral conjunctiva pink and moist with no injection noted. EARS - No deformities of external structures noted on gross examination bilaterally. NOSE - Midline and without cyanosis. No epistaxis or purulent drainage noted. MOUTH/OROPHARYNX - Without perioral cyanosis. Buccal mucosa pink and moist and without leukoplakia. NECK - Neck with FROM. Supple to palpation. No nuchal rigidity. LUNGS - Chest wall symmetric without accessory muscle use, intercostals retractions, or central cyanosis. Normal vesicular breath sounds CTA B/L. No wheezes, rales, or rhonchi appreciated. CARDIAC - RRR with S1/S2. No murmur, rubs, or gallops appreciated. ABDOMEN - Abdominal contour flat without pulsations or visible masses. BS normoactive all four quadrants. Mild TTP in the epigastrium. No palpable masses, hepatosplenomegaly, or ascites noted. EXTREMITIES - No clubbing or peripheral cyanosis. No pretibial edema present. +3/5 radial and dorsalis pedis pulses palpated throughout. +5/5 strength noted in UE/LE bilaterally. NEUROLOGIC - Cranial nerves II through XII grossly intact. Sensory intact to light touch throughout. PSYCH - A&Ox3 and cooperates fully with examiner. Pt is very pleasant and interacts well with examiner. Results & Data ([facility]) Vital Signs (Past 12 Hours) Vital Signs Temp Pulse Pulse Resp BP BP Pulse Ox 10/15/19 20:43 37.7 C H 101 H 18 98/57 L 93 10/15/19 20:33 37.7 C H 101 H 18 98/57 L 93 10/15/19 20:14 103 H 18 78/42 L 95 10/15/19 20:03 37.2 C 99 H 18 74/42 L 96 10/15/19 19:51 100 H 20 85/46 L 96 10/15/19 19:48 37.2 C 96 H 18 85/46 L 95 10/15/19 19:33 37.1 C 100 H 18 72/43 L 100 10/15/19 19:27 96 H 18 66/33 L 96 10/15/19 19:20 99 H 18 79/42 L 97 10/15/19 19:19 37.1 C 10/15/19 19:16 102 H 18 70/38 L 96 10/15/19 18:44 100 H 21 96/58 L 99 10/15/19 18:33 102 H 24 86/64 L 99 10/15/19 18:06 95 H 20 106/65 99 10/15/19 17:56 95 H 14 93/47 L 100 02/24/20 17:43 97 H 16 91/62 L 99 10/15/19 17:32 106 H 116 H 18 105/61 100 10/15/19 17:12 37.0 C 134 H 20 71/45 L 98 Coding Level of Care Code Critical Care 1st 30-74 mins Diagnoses Admitted to intensive care unit Z78.9 UGIB (upper gastrointestinal bleed) K92.2 Elevated INR R79.1 Cirrhosis of liver K70.30 Ascites presence: unspecified Hepatic cirrhosis type: alcoholic cirrhosis Anxiety and depression F41.9; F32.9 COPD (chronic obstructive pulmonary disease) J44.9 Hepatitis C B19.20 Hyperbilirubinemia E80.6 Cirrhosis of liver K74.60 Alcohol abuse F10.10 Portal hypertension K76.6 LAYO (acute kidney injury) N17.9 Liver failure, acute K72.00 Transaminitis R74.0 Acute blood loss anemia D62 Thrombocytopenia D69.6 Time Spent (min) 60 (1) Cirrhosis of liver Ascites presence: unspecified Hepatic cirrhosis type: alcoholic cirrhosis Qualified Code(s): K70.30 - Alcoholic cirrhosis of liver without ascites
[2019-10-15] MEDS: OCTREOTIDE ACETATE 500 MCG in 0.9 % SODIUM CHLORIDE 100 ML IV SCH (21:13)
[2019-10-15] MEDS ORDERED: XOPENEX/ATROVENT 1.25mg/0.5MG NEB COMBO NEB PRN (21:20)
[2019-10-15] MEDS ORDERED: IPRATROPIUM BROMIDE NEB SOLN 0.02% 2.5 ML VIAL INH PRN (21:30)
[2019-10-15] MEDS ORDERED: LEVALBUTEROL 1.25MG/0.5ML NEB INH PRN (21:30)
--- NOTE | 2019-10-15 22:46 | History and Physical Report ---
DATE OF ADMISSION: 10/15/2019 CHIEF COMPLAINT: Hematemesis and melena. HISTORY OF PRESENT ILLNESS: This is a 53-year-old female with past medical history significant for alcoholic liver cirrhosis; chronic alcoholism; history of hepatitis C, treated with Harvoni for 12 weeks, last viral load in October 2016 was not detectable; history of tobacco abuse; COPD; portal hypertension; esophageal varices; history of gastritis; pancreatitis; depression with anxiety; chronic thrombocytopenia; ongoing alcoholism, she says she drinks half a pint of bourbon every day. She was in [facility] in the past. Lives with her . Ambulates okay, but lately she is having imbalance and dizziness. Last Tuesday, she started having hematemesis and also black and blood in the stools, some abdominal discomfort, and she stopped drinking since then and that is the reason she came to the ER today and her hemoglobin was found to be 7.5, prior to that in December 2018 it was 13.6. In ER she was hypotensive, systolic blood pressure in 60s and 70s, with fluid boluses it came into 80s. She is getting 1 unit of PRBC now. No active vomiting in the ER, hemoccult was positive. Creatinine is 1.6, baseline is around 0.6, and also her total bilirubin is 3.6, it was at 1.9 in December 2018, AST is 958, ALT 205, alkaline phosphatase 105. Afebrile. WBC 12.7. She states the abdominal pain is slightly better today. She says on and off she gets chest pain, but right now she does not have any chest pain. She has some dry cough. Denies any fever, chills. Has some headache. No blurred vision, no earache, no runny nose, no sore throat. Somewhat chilly, on multiple blankets. Most of the time she gave history okay, but sometimes seems to be not understanding the questions. Her INR was 2. Got IV vitamin K and started on Protonix drip in the ER and got 1.5 liters of fluids and banana bag. ALLERGIES: CODEINE. PAST MEDICAL HISTORY: As mentioned above. PAST SURGICAL HISTORY: Colonoscopy, EGDs, EGD with endoscopic ultrasound, ligation of oviducts, right total hip replacement. MEDICATIONS: The patient is on folic acid 1 mg p.o. daily, hydroxyzine 10 mg p.o. b.i.d. p.r.n. for anxiety, thiamine 100 mg p.o. daily, Spiriva 2 puffs daily, albuterol nebulization every 4 hours p.r.n., Breo Ellipta 200/25 mcg 1 puff daily, albuterol inhalation 2 puffs every 4 hours p.r.n. FAMILY HISTORY: Significant for father has alcoholism, mother had cervical cancer, father has mental disorder. SOCIAL HISTORY: Currently living with her , smokes 1 pack a day for 38 years, still drinking about half pint of bourbon every day. No drug use as per records. REVIEW OF SYSTEMS: As per HPI, could not get complete review of systems as the patient is somewhat difficult to get the history and somewhat chilly and cold because of her ongoing hypertension. PHYSICAL EXAMINATION: GENERAL: The patient is alert and oriented, slightly shaky. VITAL SIGNS: Temperature 37.2, pulse 99, respiratory rate 18, blood pressure 74/42, oxygen 96% on room air. HEENT: No pallor, no icterus. Pupils equal, round, and reactive to light. NECK: No JVD, no neck masses, no carotid bruits. CARDIOVASCULAR: S1, S2 heard, regular rate and rhythm, no murmur, no gallop. RESPIRATORY SYSTEM: Normal AP diameter. No accessory muscle use. No wheezing, no crackles. ABDOMEN: Soft, bowel sounds present. Mild abdominal diffuse discomfort. No guarding. No rigidity. No distention. CENTRAL NERVOUS SYSTEM: Alert and oriented. Obeys simple commands. Moves extremities. Speech is clear. EXTREMITIES: No edema, no erythema. LABORATORY DATA: WBC 12.7, hemoglobin 7.5, hematocrit 22.5, platelets 55. PT 19.3, INR 2, APTT 30.2. Sodium 132, potassium 3.7, chloride 93, bicarbonate 20, BUN 37, creatinine 1.6, serum glucose 93, calcium 8.1, total bilirubin 3.6, AST 958, ALT 208, alkaline phosphatase 105. IMAGING DATA: Chest x-ray, no acute process. EKG: Sinus tachycardia, no significant change. ASSESSMENT AND PLAN: This is a 53-year-old female who presents with hematemesis and melena and hypotension and anemia. 1. Gastrointestinal bleed with hematemesis and melena, currently not actively vomiting. Hemoccult is positive in the ER. Acute blood loss anemia. Hemoglobin 13.6 in December 2018, currently 7.5. Getting a unit of PRBCs in the ER. We will give 2 units of PRBCs. We will follow H and H closely. Started on Protonix because of history of alcoholism and alcoholic cirrhosis and esophageal varices. Will also start on Sandostatin drip and closely monitor in the ICU. 2. Hypotension secondary to above. Got fluids and getting blood. If blood pressure does not improve, may need to start on pressors. Also started on IV antibiotics, IV Zosyn, and notified GI. Based on how the patient responds to the above treatment, scopes as per GI. If she does not improve, we will again notify GI for possible emergent scopes. 3. Alcoholism, last drink was last Tuesday. Received banana bag in the ER. We will place on IV thiamine, IV folic acid from a.m. IV Ativan p.r.n. for alcohol withdrawal. Needs counseling. 4. Transaminitis,, and also elevated bilirubin, possibly from alcoholism. We will check CPK levels and also could be hypotension playing a role. The patient denies any recent use of Tylenol. Says she took ibuprofen yesterday for back pain. We will check the Tylenol level and follow the repeat labs. 5. History of chronic obstructive pulmonary disease and tobacco abuse. Continue home inhalers and nebs p.r.n. 6. Hepatitis C, status post treatment. 7. Chronic thrombocytopenia. Platelets are 55. 8. Alcoholic liver cirrhosis. Will follow the labs. 9. Acute kidney injury with a creatinine of 1.6, baseline creatinine of 0.6. Getting fluids. We will follow the repeat labs. 10. Deep venous thrombosis prophylaxis, sequential compression devices for now. 11. Disposition: Closely monitor in the ICU. Level 1 full code. MTDD
[2019-10-16] MEDS: SODIUM CHLORIDE 0.9% 1000ML 1,000 ML IV SCH ×2 (00:11→08:53)
[2019-10-16 01:38] LABS: Hematocrit (blood only) 22.8 % (37-47); Hemoglobin 7.8 g/dL (12.0-16.0)
[2019-10-16] MEDS ORDERED: SODIUM CHLORIDE 0.9% 250 ML IV PRN ×3 (01:38→09:56)
[2019-10-16] MEDS: PIPERACILLIN/TAZOBACTAM 3.375 GM in DEXTROSE 5% 100 ML IV SCH ×2 (02:29→09:32)
[2019-10-16] MEDS ORDERED: CALCIUM GLUCONATE 10% 1,000 MG in SODIUM CHLORIDE 0.9% 50 ML IV STA (02:48)
[2019-10-16] MEDS: PANTOprazole 40 MG in DEXTROSE 5% 100 ML IV SCH ×4 (04:15→21:13)
[2019-10-16] MEDS ORDERED: ONDANSETRON INJ 2 MG/ML 2 ML VIAL IV PRN ×2 (04:45→16:18)
[2019-10-16] MEDS ORDERED: ONDANSETRON INJ 2 MG/ML 2 ML VIAL ONE (04:47)
[2019-10-16 05:18] LABS: INR 1.9 (0.9-1.1)
[2019-10-16 05:37] LABS: Albumin Level 2.1 gm/dl (3.4-5.0); BUN Creatinine Ratio 26.8 (10-20); Bilirubin Direct 1.9 mg/dl (0-0.2); Calcium 6.4 mg/dl (8.5-10.1); Creatinine Clr Calc Pharmacy 39.1 ml/min; Est GFR (Non-African American) 39.7; Magnesium 1.3 mg/dl (1.8-2.4); Phosphorus 2.4 mg/dl (2.5-4.9); Potassium 3.7 mmol/L (3.5-5.1)
[2019-10-16] MEDS: OCTREOTIDE ACETATE 500 MCG in 0.9 % SODIUM CHLORIDE 100 ML IV SCH ×2 (05:44→17:09)
[2019-10-16] MEDS ORDERED: MAGNESIUM SULFATE / D5W 1 GM/100 ML BAG IV ONE ×2 (06:26→08:45)
--- NOTE | 2019-10-16 07:10 | Ultrasound Report ---
US duplex portal hepatic veins CLINICAL HISTORY: Upper GI bleed. COMPARISON STUDY: Abdomen and pelvis CT 06/25/2018. FINDINGS: The portal and hepatic veins are patent and demonstrate normal direction of flow. Cirrhotic morphology to the liver. Small amount of perihepatic ascites. IVC is partially obscured by overlying bowel gas. The hepatic artery is patent. IMPRESSION: The portal and hepatic veins are patent. ACT 112: Negative or not required by law. Electronically signed by: Jeremy Jones M.D. 10/16/2019 7:09 AM
[2019-10-16] MEDS: THIAMINE HCL 100 MG in SYRINGE 9 ML IV SCH (08:09)
[2019-10-16] MEDS: FLUTICASONE/VILANTEROL 100/25MCG 14 PUFFS/INHALER INH SCH (08:09)
[2019-10-16] MEDS: FOLIC ACID 1 MG in SYRINGE 9.8 ML IV SCH (08:09)
[2019-10-16] MEDS ORDERED: POTASSIUM PHOS 3 MMOL/1 ML INFUSION IV STA (08:25)
[2019-10-16 08:40] LABS: Basophils # (auto) 0.02 K/uL (0-0.2); Basophils % (auto) 0.4 %; Eosinophils # (auto) 0.06 K/uL (0-0.5); Eosinophils % (auto) 1.1 %; Hematocrit (blood only) 26.5 % (37-47); Hemoglobin 9.1 g/dL (12.0-16.0); Immature Granulocytes # (auto) 0.02 K/uL (0.00-0.02); Immature Granulocytes % (auto) 0.4 %; Lymphocytes # (auto) 1.16 K/uL (1.2-3.4); Lymphocytes % (auto) 21.1 %; Mean Corpuscular Hemoglobin 31.6 pg (25-34); Mean Corpuscular Hgb Conc 34.3 g/dL (32-36); Mean Platelet Volume 12.1 fL (7.4-10.4); Monocytes # (auto) 1.43 K/uL (0.11-0.59); Neutrophils # (auto) 2.81 K/uL (1.4-6.5); Platelet Count 21 K/uL (130-400); Platelet Estimate SIGNIFIC DECREASED (Normal); RDW Coefficient of Variation 16.5 % (11.5-14.5); RDW Standard Deviation 54.6 fL (36.4-46.3); Red Blood Count 2.88 M/uL (4.2-5.4)
[2019-10-16] MEDS ORDERED: POTASSIUM PHOSPHATE 21 MMOL in SODIUM CHLORIDE 0.9% 500 ML IV ONE (08:45)
[2019-10-16] MEDS: NORMOSOL-R 1,000 ML IV SCH (10:01)
[2019-10-16] MEDS ORDERED: CALCIUM GLUCONATE 10% 1,000 MG in SODIUM CHLORIDE 0.9% 50 ML IV ONE (10:15)
--- NOTE | 2019-10-16 10:57 | Critical Care Progress Note ---
Date of Service October 16, 2019 Assessment & Plan (1) Admitted to intensive care unit: Reason Critically Ill: 53- yo F with PMHX of alcoholic cirrhosis admitted on 10/15 for acute blood loss anemia secondary to presumed upper GI bleed. Sent to the ICU for monitoring in the setting of labile blood pressures. Neuro: [facility] ICU: Negative * Hx of Alcohol abuse: Patient reports drinking one 1/2 to 1 pint of bourbon per day. recall once prior episode of withdrawal for which required Ativan and Librium use. no signs of withdrawal on exam today. Currently on AWSS protocol with IV lorazepam ordered. AWSS score this morning was 3. continue thiamine and folate supplement daily. Cardiac: * Hypotension: BP currently at 88/65, MAP of 73. She is in the setting of acute blood loss, however review of chart reveals patient at typical baseline. currently +4.4 L of fluid. Transfuse pRBCs in order to maintain goal MAP >60 -continue library monitor Respiratory: * Hx COPD - secondary to longstanding tobacco use. continue home Breo-Ellipta and albuterol inhaler prn. Ipratropium nebs ordered prn. - no home O2 requirement. currently satting 92 on 2L via NC. wean O2 as tolerated. - CXR reviewed, showing no acute process GI: * Upper GI bleed: Patient with coffee-ground/Bright red blood emesis. Heme positive stools on admission. Patient with noted history of alcoholic gastritis in the past. Continue with Protonix drip. continue antibiotic coverage for SBP prophylaxis. continue octreotide as patient known hepatic portal hypertension. GI following, plan for EGD tomorrow, 10/17 once platelets stabilize. Blood product transfusion consent form signed and in chart. * Acute on Chronic hepatic failure: AST at 995, ALT at 187. Patient with underlying history of alcoholic cirrhosis and history of hepatitis C infection. One dose of IV vitamin K administered in ED. INR currently 1.9. Albumin low at 2.1. continue to trend transaminases. Avoid Tylenol use. * Hx of Alcoholic Cirrhosis - liver enzymes as above. known portal hypertension. Portal Vein US 10/15 confirmed patent hepatic and portal veins. * Hx Hepatitis C infection - patient reports she received treatment at [facility] "many years ago" with cure RENAL/LYTES: * LAYO - baseline Cr 0.6. At 1.61 on admission, down to 1.48. BUN/Cr ratio 26. Likely pre-renal in etiology, secondary to known volume loss. Fluid and blood product replacement. continue to trend. - Normosol 80mls/hr for maintenance fluids. * Electrolyte derangements: Calcium corrects to 7.9. Na low at 132. Phos at 2.4. IV replacement ordered. K normal at 3.7. continue to monitor levels. : * Eastman - strict Is/Os. Currently +4.4 L of fluid with > 685 ml of urine output. ENDO: * ICU protocol for hyperglycemia. No underlying history of diabetes. Blood sugars ~ 130-150s HEME: * Acute blood loss anemia secondary to GI bleed: Hgb 7.5 on admission, up to 9.1 today. Patient has received 4 units of pRBCs, 2 units of FFP. continue to monitor with H+H q8. * thrombocytopenia- 55 on admission, down to 21 today. Patient transfused 1 units in ED; will order 1 unit today. chart reviews this to be chronic issue, likely secondary to bone marrow suppression with chronic EToh use. ID: * SBP prophylaxis: continue with Zosyn - WBC normal - nasal MRSA swab neg LINES/IV ACCESS: * PIVs x3 * Eastman catheter CODE STATUS: Full Code DVT PROPHYLAXIS: chemical ppx contraindicated in setting of acute GI bleed Thank you for allowing us to participate in the care of this patient. Please refer to my attending physician's documentation for any further recommendations. Admission and Anticipated Discharge Date Admission Date: October 15, 2019 Supervising Physician Co-Signing Physician Notes Dr. Louie was resident physician during care of patient. I separately evaluated patient for bah portions of the history and the exam. I was present during the critical portion of medical decision making, and I discussed the case with the resident. I generally agree with the findings and plan. Patient critically ill due to gastrointestinal hemorrhage, cannot exclude variceal bleeding. Has received blood products. Anticipate EGD to fully risk stratify the patient. Close observation for alcohol withdraw considering ongoing alcohol use and abuse. Discussed with GI. Patient was discussed on multidisciplinary rounds. Subjective Patient in ICU. Reports feeling slightly better than on admission. Denies lightheadedness or dizziness, although she has not tried to sit up or get out of bed. Review of Systems Gastrointestinal: + abdominal pain Physical Exam Constitutional: WD/WN, vitals as above Not diaphoretic Eyes: + anicteric sclerae ENMT: external ear and nose normal, oropharynx normal Neck: normal visual inspection and trachea midline Respiratory: normal respiratory effort, lungs clear to auscultation no cough Auscultation: no crackles, no rales, no rhonchi, no wheezes and no pleural rub Cardiovascular: RRR, no murmur, no edema Heart Sounds: normal S1 and normal S2 Extremities: no pedal edema Gastrointestinal (Abdomen): Inspection/Auscultation: abdomen normal to inspection, + abdomen distended and normal bowel sounds Percussion/Palpation: + abdomen tender and abdomen soft; no guarding Skin: no rashes, warm and dry + ecchymosis ( R thigh ) Neurologic: Motor/Sensory: no tremor Psychiatric: A+Ox3, euthymic affect Genitourinary: Eastman catheter in place, draining yellow colored urine without visible clots Results & Data ([facility]) Vital Signs (Past 12 Hours) Vital Signs Temp Pulse Pulse Resp BP BP Pulse Ox 10/16/19 10:32 36.9 C 74 88/65 L 93 10/16/19 10:18 36.9 C 80 20 82/57 L 94 10/16/19 09:00 83 21 87/63 L 94 10/16/19 08:28 83 27 H 88/58 L 93 10/16/19 07:31 86 27 H 88/58 L 94 10/16/19 07:19 37 C 88 32 H 90/64 L 93 10/16/19 07:12 85 10/16/19 06:45 36.9 C 87 20 91/59 L 96 10/16/19 06:27 37.0 C 89 18 88/53 L 96 10/16/19 06:09 37.0 C 88 20 85/56 L 95 10/16/19 06:02 37.0 C 87 20 85/56 L 95 10/16/19 05:39 37.0 C 88 20 88/55 L 96 10/16/19 05:09 36.9 C 86 20 87/54 L 96 10/16/19 04:54 36.8 C 90 22 89/47 L 96 10/16/19 04:38 36.8 C 90 22 84/53 L 95 10/16/19 04:25 37.0 C 93 H 18 87/47 L 91 10/16/19 04:19 98 H 22 81/41 L 92 10/16/19 03:44 37.0 C 93 H 22 79/50 L 93 10/16/19 03:14 36.9 C 91 H 20 77/49 L 92 10/16/19 02:59 37.2 C 99 H 18 94/45 L 93 10/16/19 02:42 37.0 C 96 H 20 83/48 L 92 10/16/19 02:00 96 H 20 88/49 L 92 10/16/19 01:00 98 H 20 87/45 L 92 10/16/19 00:10 37.0 C 104 H 18 84/48 L 91 10/15/19 23:18 37.2 C 105 H 18 89/46 L 92 Critical Care Time Critical Care Time: Yes Total Critical Care Time: 35 I have personally spent 35 minutes of critical care time in the direct management of this patient. This is a life/limb threatening event. This includes time spent evaluating patient, direct bedside care, chart review, placing orders, interpretation of diagnostic studies, discussion with consultants, patient, and/or family members regarding treatment decisions, as well as other required patient management activities. This time is exclusive of all separately billable procedures, and teaching time and separate from and in addition to any other critical care service time. Resident Activity Tracking Resident Involvement: Resident Care Provided Care Provided: Adult [facility]
--- NOTE | 2019-10-16 12:31 | Gastrointestinal Consultation ---
Date of Consultation October 16, 2019 Assessment & Plan (1) Acute blood loss anemia: (2) Cirrhosis of liver: (3) GI bleed: Pt is a 53 y/o female w hx of HCV (treated w Harvoni, SVR attained), ETOH cirrhosis w Grade I esophageal varices, portal HTN, continued ETOH use who presented w dark bloody emesis, stools; noted to be anemic, hypotensive on presentation. Blood ct improved after 4U PRBC overnight though noted Plt w significant drop 55->20 this AM. She hasn't had any more emesis or BMs since admitted. Elevated LFTs ? related to ETOH hepatitis vs rhabdo (increased CK) MELD 26 Maddrey's Discriminant Function Score 35 - Keep NPO - Continue PPI and Octreotide gtts - Agree with additional Plt and FFP transfusions - Will consider EGD eval in OR to r/o UGI source of bleeding - DIC workup: add PTT, fibrinogen - DT protocol - Consider ETOH rehab on DC ; she also needs f/u in GI clinic for continued cirrhosis care Attg add : I interviewed and examined pt, reviewed chart and labs. Pt admit with abd pain, GI bleeding with hematemesis/melena, hypotension. She has received blood x 4 units, plts, FFP, vit K. On exam, she is awake, answers questions appropriately but slowly, abd mod distended and dull to percuss, no edema, no jaundice, no ecchymosis. Labs reviewed - notable for marked AST with nl CPK, Increased creat, bili 3, plts 37. Agree with abx, octreotide, PPI. Plan EGD today. Consent obtained from . Further recs as above. History of Present Illness Reason for Consultation: GI bleed, anemia, hypotension; hx of ETOH cirrhosis Requesting Physician: Dr. Patria Holm Attending Physician: Dr. Dean Cortez History of Present Illness Pt is a 53 y/o female who presented yesterday w c/o "brown black and bloody" vomitus, stools. She has hx of HCV infection treated with Harvoni, ETOH cirrhosis. Still drinking a pint of [place] daily, last ETOH intake last Tuesday. Denies regular uses of NSAIDs, anticogulants. She was having n,v, abd pain, dizziness for several days and started to notice the "brown, black and bloody" vomit & stools since over weekend. When n/v continues she decided to go to the ED. Labs, imaging studies reviewed: H/H 7.5/22.5. Overnight she received 4U PRBC transfusion. Plt 55 -> 20 this AM. PT/INR 19/2. BUn/Cr .7/1.6. Tbili 3, AST 955, ALT 187, Alk phos 76. Ca 6.4, Phos 2.4, Mg 1.3. CXR and portal vein unremarkable. BP soft 70s-80s/40s. She is on Octreotide gtt. She received PPI bolus, on gtt now. HRs in 80s. She appears lethargic this AM but able to answer questions quite approriately. Has mild asterixis. She hasn't had any more signs of vomiting or stools since admitted. Last time seen in GI clinic 11/2018, I referred her to ED for ETOH withdrawal symptoms. Previously followed by Dr. Darryl Venegas ([facility]) EUS 2012: fatty liver, gallbladder wall 4mm, ? Alvarado's esophagus, Grade I esophageal varices EGD/Colonoscopy 2017: Grade I varices, portal HTN; diverticulosis, int hemorrhoids. Allergies Allergy/AdvReac Type Severity Reaction Status Date / Time codeine AdvReac Severe upset Verified 10/15/19 18:34 stomach Home Medications Home Medications Medication Instructions Recorded Confirmed Type Breo Ellipta 1 inh INHALATION DAILY 01/08/19 10/15/19 History Incruse Ellipta 1 inh INHALATION DAILY 01/08/19 10/15/19 History albuterol sulfate 2 puff INHALATION Q6H PRN 01/08/19 10/15/19 History folic acid 1 mg PO QAM #30 tab 01/13/19 10/15/19 Rx hydroxyzine HCl 10 mg PO Q12H PRN #30 tab 01/13/19 10/15/19 Rx thiamine HCl (vitamin B1) [Vitamin 100 mg PO QAM #30 tab 01/13/19 10/15/19 Rx B-1] Patient History Medical History Alcohol abuse (Chronic) Alcohol abuse (Acute) Cirrhosis of liver (Chronic 11/21/12) Hepatitis, alcoholic (Chronic 11/21/12) Family History Other Family history non-contributory Social History Preferred Language: Tajik Communication Ability: Effective Tattooer Required: No Beliefs That Will Affect Care: None Current Living Situation: Spouse Other Information That Helps Us Care for You: No Feels Safe at Home: Yes Safety Concerns: Feels Safe At This Time Smoking Status: Current every day smoker Tobacco Type: cigarettes ; Cigarettes Per Day: 1/2 ppd ; Hx Alcohol Use: Yes Alcohol type: hard liquor Hx Substance Use: No Review of Systems Review of Systems: All systems reviewed & are unremarkable except as noted in HPI & below Physical Exam Constitutional: + ill appearing, cooperative, comfortable and + lethargic Eyes: PERRL, conjunctivae normal, anicteric sclerae ENMT: external ear and nose normal, oropharynx normal Respiratory: no respiratory distress and does not use accessory muscles Auscultation: + diminished lung sounds Cardiovascular: RRR, no murmur, no edema Gastrointestinal (Abdomen): Inspection/Auscultation: + hypoactive bowel sounds Percussion/Palpation: + abdomen tender (epigastric ) and abdomen soft Skin: no rashes, warm and dry + jaundice Neurologic: Motor/Sensory: + asterixis Psychiatric: Lethargic and easily arousable. She is oriented x 3 Lymphatic: no lymphedema Results & Data ([facility]) Vital Signs (Past 12 Hours) Vital Signs Temp Pulse Pulse Resp BP BP Pulse Ox 10/16/19 12:20 37 C 76 18 86/53 L 93 10/16/19 11:50 79 80/54 L 10/16/19 11:47 36.7 C 79 20 88/53 L 94 10/16/19 11:15 36.8 C 74 75/50 L 92 10/16/19 10:55 36.9 C 71 82/53 L 93 10/16/19 10:40 36.8 C 71 91/45 L 92 10/16/19 10:32 36.9 C 74 88/65 L 93 10/16/19 10:18 36.9 C 80 20 82/57 L 94 10/16/19 09:00 83 21 87/63 L 94 10/16/19 08:28 83 27 H 88/58 L 93 10/16/19 07:31 86 27 H 88/58 L 94 10/16/19 07:19 37 C 88 32 H 90/64 L 93 10/16/19 07:12 85 10/16/19 06:45 36.9 C 87 20 91/59 L 96 10/16/19 06:27 37.0 C 89 18 88/53 L 96 10/16/19 06:09 37.0 C 88 20 85/56 L 95 10/16/19 06:02 37.0 C 87 20 85/56 L 95 10/16/19 05:39 37.0 C 88 20 88/55 L 96 10/16/19 05:09 36.9 C 86 20 87/54 L 96 10/16/19 04:54 36.8 C 90 22 89/47 L 96 10/16/19 04:38 36.8 C 90 22 84/53 L 95 10/16/19 04:25 37.0 C 93 H 18 87/47 L 91 10/16/19 04:19 98 H 22 81/41 L 92 10/16/19 03:44 37.0 C 93 H 22 79/50 L 93 10/16/19 03:14 36.9 C 91 H 20 77/49 L 92 10/16/19 02:59 37.2 C 99 H 18 94/45 L 93 10/16/19 02:42 37.0 C 96 H 20 83/48 L 92 10/16/19 02:00 96 H 20 88/49 L 92 10/16/19 01:00 98 H 20 87/45 L 92 (1) GI bleed GI bleed type/associated pathology: unspecified gastrointestinal hemorrhage type Qualified Code(s): K92.2 - Gastrointestinal hemorrhage, unspecified (2) Cirrhosis of liver Ascites presence: unspecified Hepatic cirrhosis type: alcoholic cirrhosis Qualified Code(s): K70.30 - Alcoholic cirrhosis of liver without ascites
[2019-10-16 12:50] LABS: Hematocrit (blood only) 28.1 % (37-47); Hemoglobin 9.7 g/dL (12.0-16.0); Mean Corpuscular Hemoglobin 31.8 pg (25-34); Mean Corpuscular Hgb Conc 34.5 g/dL (32-36); Mean Corpuscular Volume 92.1 fL (80-100); Mean Platelet Volume 10.5 fL (7.4-10.4); Platelet Count 37 K/uL (130-400); RDW Coefficient of Variation 16.9 % (11.5-14.5); Red Blood Count 3.05 M/uL (4.2-5.4); White Blood Count 5.22 K/uL (4.8-10.8)
[2019-10-16 12:55] LABS: Fibrinogen 153 mg/dl (184-400)
[2019-10-16 12:57] LABS: Partial Thromboplastin Ratio 1.2; Partial Thromboplastin Time 31.4 Seconds (21.0-31.0)
[2019-10-16 13:05] LABS: BUN Creatinine Ratio 25.8 (10-20); Calcium 6.9 mg/dl (8.5-10.1); Creatinine Clr Calc Pharmacy 38.1 ml/min; Est GFR (African American) 44.6; Est GFR (Non-African American) 38.5; Magnesium 2.4 mg/dl (1.8-2.4); Potassium 3.6 mmol/L (3.5-5.1)
[2019-10-16 13:10] LABS: Phosphorus 3.2 mg/dl (2.5-4.9)
--- NOTE | 2019-10-16 13:13 | Billing Data ---
Date of Service October 16, 2019 Coding Level of Care Code Critical Care 1st - mins
[2019-10-16 13:16] LABS: Basophils # (auto) 0.01 K/uL (0-0.2); Basophils % (auto) 0.2 %; Eosinophils # (auto) 0.06 K/uL (0-0.5); Eosinophils % (auto) 1.1 %; Immature Granulocytes # (auto) 0.02 K/uL (0.00-0.02); Immature Granulocytes % (auto) 0.4 %; Lymphocytes % (auto) 17.2 %; Monocytes # (auto) 1.18 K/uL (0.11-0.59); Monocytes % (auto) 22.6 %; Neutrophils # (auto) 3.05 K/uL (1.4-6.5); Neutrophils % (auto) 58.5 %
[2019-10-16] MEDS: cefTRIAXone SODIUM 1,000 MG in DEXTROSE 5% 50 ML IV SCH (13:49)
--- NOTE | 2019-10-16 13:53 | Hospitalist Progress Note ---
Date of Service October 16, 2019 Assessment & Plan (1) UGIB (upper gastrointestinal bleed): (2) Cirrhosis of liver: (3) Acute blood loss anemia: Decompensated alcoholic cirrhosis with GI bleed [likely upper GI] Patient has history of varices. Acute blood loss anemia from upper GI bleed with hypotension Has received 4 PRBCs since admission, 2 FFP's and 1 platelet Planned for EGD Currently blood pressure has been stable. Continue IV fluids Continue IV PPI and octreotide drips Meld sodium on admission was 27, now 25 this morning. Continue to monitor meld labs GI on board Will need counseling on alcohol rehab once stabilized. We will continue care in the ICU (4) Thrombocytopenia: Platelet was 55 on admission Dropped to 21 this morning. Got 1 platelet Will continue to monitor platelet (5) Transaminitis: LFTs are elevated Likely secondary to shock liver from hemorrhagic shock We will continue to monitor (6) COPD (chronic obstructive pulmonary disease): Stable Continue home nebs (7) Hepatitis C: Status post treatment with reported SVR (8) LAYO (acute kidney injury): LAYO secondary to hemorrhagic shock. Creatinine on admission was 1.61, continue IV fluids and resuscitation. Creatinine this morning is 1.48 Continue to monitor electrolytes and continue repletion as needed DVT prophylaxis SCDs for now Admission and Anticipated Discharge Date Admission Date: October 15, 2019 Subjective Patient seen and examined. Still reporting nausea. Has not had any more vomiting so far Reports some improvement with abdominal pain. Reports generalized weakness. Has not had been normal hematemesis or black stools Physical Exam Constitutional: + ill appearing; no acute distress Eyes: PERRL and EOM intact bilaterally Mild pallor ENMT: external ear and nose normal, oropharynx normal Respiratory: normal respiratory effort, lungs clear to auscultation Cardiovascular: RRR, no murmur, no edema Gastrointestinal (Abdomen): Inspection/Auscultation: normal bowel sounds; abdomen not distended Percussion/Palpation: + abdomen tender (mild tenderness in epigastrium) and abdomen soft; no guarding and abdomen not rigid Musculoskeletal: no cyanosis or clubbing, extremities motor strength 5/5 Neurologic: PERRL, EOMI, accommodation nl, no face palsy, no dysarthria moves all extremities; no focal motor deficits Psychiatric: Orientation: alert and oriented x 3 Results & Data ([facility]) Vital Signs (Past 12 Hours) Vital Signs Temp Pulse Pulse Resp BP BP Pulse Ox 10/16/19 13:03 36.8 C 78 114/69 94 10/16/19 12:48 36.8 C 72 102/69 92 10/16/19 12:38 37 C 72 88/53 L 94 10/16/19 12:34 37 C 75 18 86/53 L 93 10/16/19 12:20 37 C 76 18 86/53 L 93 10/16/19 11:50 79 80/54 L 10/16/19 11:47 36.7 C 79 20 88/53 L 94 10/16/19 11:15 36.8 C 74 75/50 L 92 10/16/19 10:55 36.9 C 71 82/53 L 93 10/16/19 10:40 36.8 C 71 91/45 L 92 10/16/19 10:32 36.9 C 74 88/65 L 93 10/16/19 10:18 36.9 C 80 20 82/57 L 94 10/16/19 09:00 83 21 87/63 L 94 10/16/19 08:28 83 27 H 88/58 L 93 10/16/19 07:31 86 27 H 88/58 L 94 10/16/19 07:19 37 C 88 32 H 90/64 L 93 10/16/19 07:12 85 10/16/19 06:45 36.9 C 87 20 91/59 L 96 10/16/19 06:27 37.0 C 89 18 88/53 L 96 10/16/19 06:09 37.0 C 88 20 85/56 L 95 10/16/19 06:02 37.0 C 87 20 85/56 L 95 10/16/19 05:39 37.0 C 88 20 88/55 L 96 10/16/19 05:09 36.9 C 86 20 87/54 L 96 10/16/19 04:54 36.8 C 90 22 89/47 L 96 10/16/19 04:38 36.8 C 90 22 84/53 L 95 10/16/19 04:25 37.0 C 93 H 18 87/47 L 91 10/16/19 04:19 98 H 22 81/41 L 92 10/16/19 03:44 37.0 C 93 H 22 79/50 L 93 10/16/19 03:14 36.9 C 91 H 20 77/49 L 92 10/16/19 02:59 37.2 C 99 H 18 94/45 L 93 10/16/19 02:42 37.0 C 96 H 20 83/48 L 92 10/16/19 02:00 96 H 20 88/49 L 92 Laboratory Results Abnormal lab results 10/15/19 10/15/19 10/15/19 Range/Units 17:37 17:37 17:37 WBC 12.70 H (4.8-10.8) K/uL RBC 2.24 L (4.2-5.4) M/uL Hgb 7.5 L (12.0-16.0) g/dL Hct 22.5 L (37-47) % MCV 100.4 H (80-100) fL RDW Std Deviation 60.8 H (36.4-46.3) fL RDW Coeff of Radha 17.1 H (11.5-14.5) % Plt Count 55 L (130-400) K/uL MPV 12.9 H (7.4-10.4) fL Immature Gran # (Auto) 0.07 H (0.00-0.02) K/uL Neut # (Auto) 8.09 H (1.4-6.5) K/uL Lymph # (Auto) (1.2-3.4) K/uL Real # (Auto) 2.58 H (0.11-0.59) K/uL Absolute Nucleated RBC 0.03 H (0-0) K/uL Platelet Estimate Decreased L (Normal) PT 19.3 H (9.0-12.0) Seconds INR 2.0 H (0.9-1.1) APTT (21.0-31.0) Seconds Fibrinogen (184-400) mg/dl Sodium (136-145) mmol/L Chloride (98-107) mmol/L Carbon Dioxide (21-32) mmol/L Anion Gap (3-11) BUN (7-18) mg/dl Creatinine (0.6-1.2) mg/dl BUN/Creatinine Ratio (10-20) Glucose (70-99) mg/dl POC Glucose (70-99) mg/dl Calcium (8.5-10.1) mg/dl Phosphorus (2.5-4.9) mg/dl Magnesium (1.8-2.4) mg/dl Total Bilirubin (0.2-1) mg/dl Direct Bilirubin (0-0.2) mg/dl AST (15-37) U/L ALT (12-78) U/L Ammonia (11-32) umol/L Total Creatine Kinase (26-192) U/L Total Protein (6.4-8.2) gm/dl Albumin (3.4-5.0) gm/dl Albumin/Globulin Ratio (0.9-2) POC Stool Occult Blood (Negative) Crossmatch See Detail 10/15/19 10/15/19 10/16/19 Range/Units 17:37 18:34 00:35 WBC (4.8-10.8) K/uL RBC (4.2-5.4) M/uL Hgb (12.0-16.0) g/dL Hct (37-47) % MCV (80-100) fL RDW Std Deviation (36.4-46.3) fL RDW Coeff of Radha (11.5-14.5) % Plt Count (130-400) K/uL MPV (7.4-10.4) fL Immature Gran # (Auto) (0.00-0.02) K/uL Neut # (Auto) (1.4-6.5) K/uL Lymph # (Auto) (1.2-3.4) K/uL Real # (Auto) (0.11-0.59) K/uL Absolute Nucleated RBC (0-0) K/uL Platelet Estimate (Normal) PT (9.0-12.0) Seconds INR (0.9-1.1) APTT (21.0-31.0) Seconds Fibrinogen (184-400) mg/dl Sodium 132 L (136-145) mmol/L Chloride 93 L (98-107) mmol/L Carbon Dioxide 20 L (21-32) mmol/L Anion Gap 19.0 H (3-11) BUN 37 H (7-18) mg/dl Creatinine 1.61 H (0.6-1.2) mg/dl BUN/Creatinine Ratio 22.8 H (10-20) Glucose (70-99) mg/dl POC Glucose 154 H (70-99) mg/dl Calcium 8.1 L (8.5-10.1) mg/dl Phosphorus (2.5-4.9) mg/dl Magnesium (1.8-2.4) mg/dl Total Bilirubin 3.6 H (0.2-1) mg/dl Direct Bilirubin (0-0.2) mg/dl AST 958 H (15-37) U/L ALT 208 H (12-78) U/L Ammonia (11-32) umol/L Total Creatine Kinase 204 H (26-192) U/L Total Protein (6.4-8.2) gm/dl Albumin 2.6 L (3.4-5.0) gm/dl Albumin/Globulin Ratio 0.7 L (0.9-2) POC Stool Occult Blood Positive A (Negative) Crossmatch 10/16/19 10/16/19 10/16/19 Range/Units 01:19 04:56 04:56 WBC (4.8-10.8) K/uL RBC (4.2-5.4) M/uL Hgb 7.8 L (12.0-16.0) g/dL Hct 22.8 L (37-47) % MCV (80-100) fL RDW Std Deviation (36.4-46.3) fL RDW Coeff of Radha (11.5-14.5) % Plt Count (130-400) K/uL MPV (7.4-10.4) fL Immature Gran # (Auto) (0.00-0.02) K/uL Neut # (Auto) (1.4-6.5) K/uL Lymph # (Auto) (1.2-3.4) K/uL Real # (Auto) (0.11-0.59) K/uL Absolute Nucleated RBC (0-0) K/uL Platelet Estimate (Normal) PT 19.0 H (9.0-12.0) Seconds INR 1.9 H (0.9-1.1) APTT (21.0-31.0) Seconds Fibrinogen (184-400) mg/dl Sodium 132 L (136-145) mmol/L Chloride (98-107) mmol/L Carbon Dioxide (21-32) mmol/L Anion Gap (3-11) BUN 40 H (7-18) mg/dl Creatinine 1.48 H (0.6-1.2) mg/dl BUN/Creatinine Ratio 26.8 H (10-20) Glucose 131 H (70-99) mg/dl POC Glucose (70-99) mg/dl Calcium 6.4 L D (8.5-10.1) mg/dl Phosphorus 2.4 L (2.5-4.9) mg/dl Magnesium 1.3 L (1.8-2.4) mg/dl Total Bilirubin 3.0 H (0.2-1) mg/dl Direct Bilirubin 1.9 H (0-0.2) mg/dl AST 955 H (15-37) U/L ALT 187 H (12-78) U/L Ammonia (11-32) umol/L Total Creatine Kinase (26-192) U/L Total Protein 5.0 L D (6.4-8.2) gm/dl Albumin 2.1 L (3.4-5.0) gm/dl Albumin/Globulin Ratio (0.9-2) POC Stool Occult Blood (Negative) Crossmatch 10/16/19 10/16/19 10/16/19 Range/Units 07:52 12:09 12:38 WBC (4.8-10.8) K/uL RBC 2.88 L (4.2-5.4) M/uL Hgb 9.1 L (12.0-16.0) g/dL Hct 26.5 L (37-47) % MCV (80-100) fL RDW Std Deviation 54.6 H (36.4-46.3) fL RDW Coeff of Radha 16.5 H (11.5-14.5) % Plt Count 21 L* D (130-400) K/uL MPV 12.1 H (7.4-10.4) fL Immature Gran # (Auto) (0.00-0.02) K/uL Neut # (Auto) (1.4-6.5) K/uL Lymph # (Auto) 1.16 L (1.2-3.4) K/uL Real # (Auto) 1.43 H (0.11-0.59) K/uL Absolute Nucleated RBC (0-0) K/uL Platelet Estimate (Normal) PT (9.0-12.0) Seconds INR (0.9-1.1) APTT (21.0-31.0) Seconds Fibrinogen (184-400) mg/dl Sodium (136-145) mmol/L Chloride (98-107) mmol/L Carbon Dioxide (21-32) mmol/L Anion Gap (3-11) BUN (7-18) mg/dl Creatinine (0.6-1.2) mg/dl BUN/Creatinine Ratio (10-20) Glucose (70-99) mg/dl POC Glucose 119 H (70-99) mg/dl Calcium (8.5-10.1) mg/dl Phosphorus (2.5-4.9) mg/dl Magnesium (1.8-2.4) mg/dl Total Bilirubin (0.2-1) mg/dl Direct Bilirubin (0-0.2) mg/dl AST (15-37) U/L ALT (12-78) U/L Ammonia 69.0 H (11-32) umol/L Total Creatine Kinase (26-192) U/L Total Protein (6.4-8.2) gm/dl Albumin (3.4-5.0) gm/dl Albumin/Globulin Ratio (0.9-2) POC Stool Occult Blood (Negative) Crossmatch 10/16/19 10/16/19 10/16/19 Range/Units 12:38 12:38 12:38 WBC (4.8-10.8) K/uL RBC 3.05 L (4.2-5.4) M/uL Hgb 9.7 L (12.0-16.0) g/dL Hct 28.1 L (37-47) % MCV (80-100) fL RDW Std Deviation 55.0 H (36.4-46.3) fL RDW Coeff of Radha 16.9 H (11.5-14.5) % Plt Count 37 L D (130-400) K/uL MPV 10.5 H (7.4-10.4) fL Immature Gran # (Auto) (0.00-0.02) K/uL Neut # (Auto) (1.4-6.5) K/uL Lymph # (Auto) 0.90 L (1.2-3.4) K/uL Real # (Auto) 1.18 H (0.11-0.59) K/uL Absolute Nucleated RBC (0-0) K/uL Platelet Estimate (Normal) PT (9.0-12.0) Seconds INR (0.9-1.1) APTT (21.0-31.0) Seconds Fibrinogen 153 L (184-400) mg/dl Sodium 135 L (136-145) mmol/L Chloride (98-107) mmol/L Carbon Dioxide (21-32) mmol/L Anion Gap (3-11) BUN 39 H (7-18) mg/dl Creatinine 1.52 H (0.6-1.2) mg/dl BUN/Creatinine Ratio 25.8 H (10-20) Glucose 118 H (70-99) mg/dl POC Glucose (70-99) mg/dl Calcium 6.9 L (8.5-10.1) mg/dl Phosphorus (2.5-4.9) mg/dl Magnesium (1.8-2.4) mg/dl Total Bilirubin (0.2-1) mg/dl Direct Bilirubin (0-0.2) mg/dl AST (15-37) U/L ALT (12-78) U/L Ammonia (11-32) umol/L Total Creatine Kinase (26-192) U/L Total Protein (6.4-8.2) gm/dl Albumin (3.4-5.0) gm/dl Albumin/Globulin Ratio (0.9-2) POC Stool Occult Blood (Negative) Crossmatch 10/16/19 Range/Units 12:38 WBC (4.8-10.8) K/uL RBC (4.2-5.4) M/uL Hgb (12.0-16.0) g/dL Hct (37-47) % MCV (80-100) fL RDW Std Deviation (36.4-46.3) fL RDW Coeff of Radha (11.5-14.5) % Plt Count (130-400) K/uL MPV (7.4-10.4) fL Immature Gran # (Auto) (0.00-0.02) K/uL Neut # (Auto) (1.4-6.5) K/uL Lymph # (Auto) (1.2-3.4) K/uL Real # (Auto) (0.11-0.59) K/uL Absolute Nucleated RBC (0-0) K/uL Platelet Estimate (Normal) PT (9.0-12.0) Seconds INR (0.9-1.1) APTT 31.4 H (21.0-31.0) Seconds Fibrinogen (184-400) mg/dl Sodium (136-145) mmol/L Chloride (98-107) mmol/L Carbon Dioxide (21-32) mmol/L Anion Gap (3-11) BUN (7-18) mg/dl Creatinine (0.6-1.2) mg/dl BUN/Creatinine Ratio (10-20) Glucose (70-99) mg/dl POC Glucose (70-99) mg/dl Calcium (8.5-10.1) mg/dl Phosphorus (2.5-4.9) mg/dl Magnesium (1.8-2.4) mg/dl Total Bilirubin (0.2-1) mg/dl Direct Bilirubin (0-0.2) mg/dl AST (15-37) U/L ALT (12-78) U/L Ammonia (11-32) umol/L Total Creatine Kinase (26-192) U/L Total Protein (6.4-8.2) gm/dl Albumin (3.4-5.0) gm/dl Albumin/Globulin Ratio (0.9-2) POC Stool Occult Blood (Negative) Crossmatch (1) Cirrhosis of liver Ascites presence: unspecified Hepatic cirrhosis type: alcoholic cirrhosis Qualified Code(s): K70.30 - Alcoholic cirrhosis of liver without ascites
--- NOTE | 2019-10-16 14:33 | Electrocardiogram Report ---
Test Reason : Blood Pressure : / mmHG Vent. Rate : 109 BPM Atrial Rate : 109 BPM P-R Int : 134 ms QRS Dur : 082 ms QT Int : 348 ms P-R-T Axes : 080 033 068 degrees QTc Int : 468 ms Sinus tachycardia Otherwise normal ECG When compared with ECG of 25-JUN-2018 20:26, No significant change was found Confirmed by Fish Dailey ([id number]) on 10/16/2019 2:33:45 PM Referred By: REFERRED SELF Confirmed By:Serge Dailey
--- NOTE | 2019-10-16 15:31 | Anesthesiology Consultation ---
Date of Service October 16, 2019 Assessment & Plan (1) Encounter for pre-operative examination: Chart Review Chart Review: Acceptable Risk for Surgery (high risk, but urgent case due to ongoing GI bleed) and Patient NOT seen in Pre Admission Testing Consults Requested none ASA ASA4 Proposed Anesthesia Anesthesia Type: General Risk / Benefits Reviewed With: PT / POA / Parent / Guardian, Accepts Plan and Informed Consent Obtained Additional Notes Acute GI bleed requiring active transfusion of platelets and 4 u PRBCs, elevated INR, acute on chronic liver failure in setting of EtOH abuse and HepC, acute renal failure, tobacco abuse, portal HTN with varices and history of gastritis scheduled for EGD. Patient is high risk, but continues to show signs of blood loss requiring endoscopic intervention. History Surgery Operation Date: 10/16/19 12:55 Proposed Procedures p Esophagogastroduodenoscopy - Dean Cortez Height/Weight Height: 5 ft 5 in Weight: 62.4 kg Allergies Allergy/AdvReac Type Severity Reaction Status Date / Time codeine AdvReac Severe upset Verified 10/15/19 18:34 stomach Medications Home Medications Medication Instructions Recorded Confirmed Last Taken Breo Ellipta 1 inh INHALATION DAILY 01/08/19 10/15/19 Unknown Incruse Ellipta 1 inh INHALATION DAILY 01/08/19 10/15/19 01/08/19 0900 albuterol sulfate 2 puff INHALATION Q6H PRN 01/08/19 10/15/19 Unknown folic acid 1 mg PO QAM #30 tab 01/13/19 10/15/19 Unknown hydroxyzine HCl 10 mg PO Q12H PRN #30 tab 01/13/19 10/15/19 Unknown thiamine HCl (vitamin B1) [Vitamin 100 mg PO QAM #30 tab 01/13/19 10/15/19 Unknown B-1] Active Medications Generic Name Dose Route Start Last Admin Trade Name Freq PRN Reason Stop Dose Admin Fluticasone/Vilanterol 1 puffs 10/16/19 09:00 10/16/19 08:09 Breo Ellipta 100/25 Mcg Inh INH 11/15/19 08:59 1 puffs DAILY STEPHAN Administration Pantoprazole Sodium 40 mg/ 100 mls @ 20 mls/hr 10/15/19 17:45 10/16/19 14:58 Dextrose IV 11/14/19 17:44 20 mls/hr Q5H STEPHAN Administration Octreotide Acetate 500 mcg/ 105 mls @ 10.5 mls/hr 10/15/19 20:01 10/16/19 07:06 Sodium Chloride IV 11/14/19 20:00 50 mcg/hr .Q10H STEPHAN 10.5 mls/hr Infusion 50 MCG/HR Thiamine HCl 100 mg/ Syringe 10 mls @ 2 mls/min 10/16/19 09:00 10/16/19 08:09 IV 11/15/19 08:59 2 mls/min QAM STEPHAN Administration Folic Acid 1 mg/ Syringe 10 mls @ 5 mls/min 10/16/19 09:00 10/16/19 08:09 IV 11/15/19 08:59 5 mls/min QAM STEPHAN Administration Parenteral Electrolytes 1,000 mls @ 80 mls/hr 10/16/19 10:00 10/16/19 13:21 Normosol-R IV 11/15/19 09:59 80 mls/hr .[id number] STEPHAN Infusion Ceftriaxone Sodium 1,000 mg/ 50 mls @ 100 mls/hr 10/16/19 14:00 10/16/19 14:22 Dextrose IV 10/26/19 13:59 Infused Q24H STEPHAN Infusion Protocol Ondansetron HCl 4 mg 10/16/19 04:45 10/16/19 04:49 Zofran IV 11/15/19 04:44 4 mg Q6H PRN Administration Nausea NPO Date Last Intake of Fluids: 10/13/19 Time Last Intake of Fluids: 18:00 Date Last Intake of Solids: 10/13/19 Time Last Intake of Solids: 18:00 Past Medical History Medical History (Updated 10/16/19 @ 16:13 by Nancy Lopez MD) Acute blood loss anemia LAYO (acute kidney injury) Alcohol abuse (Chronic) Alcohol abuse (Acute) Cirrhosis of liver (Chronic 11/21/12) COPD (chronic obstructive pulmonary disease) Hepatitis C Hepatitis, alcoholic (Chronic 11/21/12) Portal hypertension Thrombocytopenia Transaminitis UGIB (upper gastrointestinal bleed) Exercise / Class Metabolic Activity III < 4 Walking/Shop/Light housework Past Family History Family History Other Family history non-contributory Past Surgical History Surgical History (Updated 10/16/19 @ 16:11 by Nancy Lopez MD) History of endoscopy Past Anesthesia History No Hx of Anesthesia Complications History of PONV No Hx of PONV Social History Smoking Status: Current every day smoker tobacco type: cigarettes Smoking cigarettes per day: 1/2 ppd Hx Alcohol Use: Yes Alcohol type: hard liquor alcohol intake frequency: 3 or more drinks per day Hx Substance Use: No substance use type: marijuana Review of Systems Positive for SOB, positive for nausea and vomiting Physical Exam Vital Signs Last Vital Signs Temp 36.8 C 10/16/19 13:03 Pulse 78 10/16/19 15:54 Resp 10 L 10/16/19 14:50 BP 128/77 10/16/19 14:50 Pulse Ox 91 10/16/19 14:50 Constitutional not obese ENMT Mouth: no TMJ abnormality and oral opening not small Thyromental Distance: > or= 3.5 Finger Breadths Mallampati Class: II Neck normal visual inspection; neck extension not limited Respiratory normal respiratory effort Auscultation: + diminished lung sounds and + crackles Cardiovascular Rate/Rhythm: regular rate and regular rhythm Heart Sounds: no murmur Neurologic moves all extremities Psychiatric Orientation: alert positive for mild confusion Testing Laboratory Results 10/16/19 12:38 10/16/19 12:38 PT 19.0 Seconds (9.0-12.0) H 10/16/19 04:56 INR 1.9 (0.9-1.1) H 10/16/19 04:56 APTT 31.4 Seconds (21.0-31.0) H 10/16/19 12:38 Blood Type B Positive 10/15/19 17:37 Antibody Screen NEGATIVE 10/15/19 17:37 10/16/19 12:09 POC Glucose 119 H Electrocardiogram Date: 10/15/19 Findings: + ST @ (109) and + no change from (10/16/2019) Chest X-Ray Date: 10/15/19 Findings: + NAD
[2019-10-16] MEDS ORDERED: PROPOFOL IV EMULSION 10 MG/ML 20 ML VIAL IV ONE (15:39)
[2019-10-16] MEDS ORDERED: fentaNYL citrate 100 MCG/2 ML VIAL ONE (15:39)
[2019-10-16] MEDS ORDERED: LIDOCAINE HCL 2% 2 ML VIAL/AMP(20MG/ML) INFIL ONE (15:39)
[2019-10-16] MEDS ORDERED: ePHEDrine sulfate 50 MG/ML AMP IV PRN (16:18)
[2019-10-16] MEDS ORDERED: ATROPINE SULFATE 0.1 MG/ML 10ML SYR IV PRN (16:18)
[2019-10-16] MEDS ORDERED: fentaNYL citrate 100 MCG/2 ML VIAL IV PRN (16:18)
--- NOTE | 2019-10-16 16:45 | GI REPORT ---
Patient Name: Jeni Zhu Procedure Date: 10/16/2019 3:36 PM Date of : 1965 Admit Type: Inpatient Age: 53 Gender: Female Attending MD: Dean Cortez MD Procedure: Upper GI endoscopy Providers: Dean Cortez MD Referring MD: Dean Cortez MD Indications: Melena Medicines: See the Anesthesia note for documentation of the administered medications Complications: No immediate complications. Estimated Blood Loss: Estimated blood loss: none. Procedure: Pre-Anesthesia Assessment: - ASA Grade Assessment: IV - A patient with severe systemic disease that is a constant threat to life. After obtaining informed consent, the endoscope was passed under direct vision. Throughout the procedure, the patient's blood pressure, pulse, and oxygen saturations were monitored continuously. The Scope was introduced through the mouth, and advanced to the second part of duodenum. The upper GI endoscopy was accomplished without difficulty. The patient tolerated the procedure well. Findings: The GEjunction was at 30 cm. There were two clumns of grade 2 varices without high risk stigmata. There was a hiatal hernia. There was severe portal gastropathy in the fundus and body of the stomach, characterized by stripes of erythema and snakeskin appearance. The antrum and duodenum were normal. Impression: - This was likely bleeding from portal gastropathy. Grade 2 esophageal varices without stigmata. Recommendation: - Continue care in the ICU. Cont octreotide and PPI gtt x 2 days, abx x 5 days. Ana Rosa Duffy MD 10/16/2019 4:45:03 PM This report has been signed electronically. Note Initiated On: 10/16/2019 3:36 PM Number of Addenda: 0 I attest to the content of the Intraoperative Record and orders documented therein, exceptions below {[id number]}
--- NOTE | 2019-10-16 17:26 | Anesthesiology Progress Note ---
Date of Service October 16, 2019 Anesthesia Post Procedure Vital Signs Vital Signs: Temp Pulse Pulse Pulse Resp BP BP 10/16/19 17:20 64 16 113/73 10/16/19 17:10 67 14 106/71 10/16/19 17:03 69 17 81/58 L 10/16/19 16:55 37.1 C 71 17 110/79 10/16/19 15:59 79 26 H 103/71 10/16/19 15:54 78 10/16/19 14:50 66 10 L 128/77 10/16/19 14:04 69 18 113/74 10/16/19 13:03 36.8 C 78 114/69 10/16/19 12:48 36.8 C 72 102/69 10/16/19 12:38 37 C 72 88/53 L 10/16/19 12:34 37 C 75 18 86/53 L 10/16/19 12:20 37 C 76 18 86/53 L 10/16/19 11:50 79 80/54 L 10/16/19 11:47 36.7 C 79 20 88/53 L 10/16/19 11:15 36.8 C 74 75/50 L 10/16/19 10:55 36.9 C 71 82/53 L 10/16/19 10:40 36.8 C 71 91/45 L 10/16/19 10:32 36.9 C 74 88/65 L 10/16/19 10:18 36.9 C 80 20 82/57 L 10/16/19 09:00 83 21 87/63 L 10/16/19 08:28 83 27 H 88/58 L 10/16/19 07:31 86 27 H 88/58 L 10/16/19 07:19 37 C 88 32 H 90/64 L 10/16/19 07:12 85 10/16/19 06:45 36.9 C 87 20 91/59 L 10/16/19 06:27 37.0 C 89 18 88/53 L 10/16/19 06:09 37.0 C 88 20 85/56 L 10/16/19 06:02 37.0 C 87 20 85/56 L 10/16/19 05:39 37.0 C 88 20 88/55 L 10/16/19 05:09 36.9 C 86 20 87/54 L 10/16/19 04:54 36.8 C 90 22 89/47 L 10/16/19 04:38 36.8 C 90 22 84/53 L 10/16/19 04:25 37.0 C 93 H 18 87/47 L 10/16/19 04:19 98 H 22 81/41 L 10/16/19 03:44 37.0 C 93 H 22 79/50 L 10/16/19 03:14 36.9 C 91 H 20 77/49 L 10/16/19 02:59 37.2 C 99 H 18 94/45 L 10/16/19 02:42 37.0 C 96 H 20 83/48 L 10/16/19 02:00 96 H 20 88/49 L 10/16/19 01:00 98 H 20 87/45 L 10/16/19 00:10 37.0 C 104 H 18 84/48 L 10/15/19 23:18 37.2 C 105 H 18 89/46 L 10/15/19 22:48 37.4 C 107 H 20 86/48 L 10/15/19 22:42 37.2 C 110 H 18 81/35 L 10/15/19 22:33 37.2 C 103 H 18 81/35 L 10/15/19 22:17 37.2 C 107 H 18 91/54 L 10/15/19 22:05 37.0 C 103 H 18 84/56 L 10/15/19 21:33 37.0 C 103 H 18 92/58 L 10/15/19 20:43 37.7 C H 101 H 18 98/57 L 10/15/19 20:33 37.7 C H 101 H 18 98/57 L 10/15/19 20:14 103 H 18 78/42 L 10/15/19 20:03 37.2 C 99 H 18 74/42 L 10/15/19 19:51 100 H 20 85/46 L 10/15/19 19:48 37.2 C 96 H 18 85/46 L 10/15/19 19:33 37.1 C 100 H 18 72/43 L 10/15/19 19:27 96 H 18 66/33 L 10/15/19 19:20 99 H 18 79/42 L 10/15/19 19:19 37.1 C 10/15/19 19:16 102 H 18 70/38 L 10/15/19 18:44 100 H 21 96/58 L 10/15/19 18:33 102 H 24 86/64 L 10/15/19 18:06 95 H 20 106/65 10/15/19 17:56 95 H 14 93/47 L 10/15/19 17:43 97 H 16 91/62 L 10/15/19 17:32 106 H 116 H 18 105/61 Pulse Ox 10/16/19 17:20 92 10/16/19 17:10 93 10/16/19 17:03 89 L 10/16/19 16:55 92 10/16/19 15:59 92 10/16/19 15:54 10/16/19 14:50 91 10/16/19 14:04 91 10/16/19 13:03 94 10/16/19 12:48 92 10/16/19 12:38 94 10/16/19 12:34 93 10/16/19 12:20 93 10/16/19 11:50 10/16/19 11:47 94 10/16/19 11:15 92 10/16/19 10:55 93 10/16/19 10:40 92 10/16/19 10:32 93 10/16/19 10:18 94 10/16/19 09:00 94 10/16/19 08:28 93 10/16/19 07:31 94 10/16/19 07:19 93 10/16/19 07:12 10/16/19 06:45 96 10/16/19 06:27 96 10/16/19 06:09 95 10/16/19 06:02 95 10/16/19 05:39 96 10/16/19 05:09 96 10/16/19 04:54 96 10/16/19 04:38 95 10/16/19 04:25 91 10/16/19 04:19 92 10/16/19 03:44 93 10/16/19 03:14 92 10/16/19 02:59 93 10/16/19 02:42 92 10/16/19 02:00 92 10/16/19 01:00 92 10/16/19 00:10 91 10/15/19 23:18 92 10/15/19 22:48 94 10/15/19 22:42 93 10/15/19 22:33 94 10/15/19 22:17 95 10/15/19 22:05 94 10/15/19 21:33 95 10/15/19 20:43 93 10/15/19 20:33 93 10/15/19 20:14 95 10/15/19 20:03 96 10/15/19 19:51 96 10/15/19 19:48 95 10/15/19 19:33 100 10/15/19 19:27 96 10/15/19 19:20 97 10/15/19 19:19 10/15/19 19:16 96 10/15/19 18:44 99 10/15/19 18:33 99 10/15/19 18:06 99 10/15/19 17:56 100 10/15/19 17:43 99 10/15/19 17:32 100 Pain Intensity Abdomen: Pain Intensity: 2 Transfer of Care Handoff Completed per policy Notes Mental Status: alert / awake / arousable and participated in evaluation Patient Amnestic to Procedure: Yes Nausea / Vomiting: adequately controlled Pain: adequately controlled Airway Patency, RR, SpO2: stable & adequate BP & HR: stable & adequate Hydration State: stable & adequate Anesthetic Complications: no major complications apparent and Pt Satisfied with anesthetic care
[2019-10-16 21:49] LABS: Hematocrit (blood only) 28.7 % (37-47); Hemoglobin 9.9 g/dL (12.0-16.0)
[2019-10-17] MEDS: NORMOSOL-R 1,000 ML IV SCH (01:07)
[2019-10-17] MEDS: OCTREOTIDE ACETATE 500 MCG in 0.9 % SODIUM CHLORIDE 100 ML IV SCH ×2 (02:06→12:02)
[2019-10-17] MEDS: PANTOprazole 40 MG in DEXTROSE 5% 100 ML IV SCH ×5 (02:19→20:34)
[2019-10-17 04:51] LABS: Hematocrit (blood only) 29.9 % (37-47); Mean Corpuscular Hemoglobin 31.1 pg (25-34); Mean Corpuscular Hgb Conc 33.4 g/dL (32-36); Mean Corpuscular Volume 92.9 fL (80-100); Nucleated RBC # (auto) 0.02 K/uL (0-0); Nucleated RBC % (auto) 0.6 %; RDW Coefficient of Variation 16.8 % (11.5-14.5); RDW Standard Deviation 56.1 fL (36.4-46.3); Red Blood Count 3.22 M/uL (4.2-5.4); White Blood Count 4.08 K/uL (4.8-10.8)
[2019-10-17 04:52] LABS: Platelet Count 32 K/uL (130-400)
[2019-10-17 05:01] LABS: INR 1.6 (0.9-1.1); Prothrombin Time 15.6 Seconds (9.0-12.0)
[2019-10-17 05:09] LABS: BUN Creatinine Ratio 21.9 (10-20); Calcium 7.2 mg/dl (8.5-10.1); Est GFR (African American) 48.8; Est GFR (Non-African American) 42.1; Magnesium 2.4 mg/dl (1.8-2.4); Potassium 3.2 mmol/L (3.5-5.1)
[2019-10-17 05:14] LABS: Basophils # (auto) 0.01 K/uL (0-0.2); Basophils % (auto) 0.2 %; Eosinophils # (auto) 0.04 K/uL (0-0.5); Giant Platelets 1+; Immature Granulocytes # (auto) 0.01 K/uL (0.00-0.02); Immature Granulocytes % (auto) 0.2 %; Lymphocytes % (auto) 17.2 %; Monocytes # (auto) 1.04 K/uL (0.11-0.59); Monocytes % (auto) 25.5 %; Neutrophils # (auto) 2.28 K/uL (1.4-6.5); Neutrophils % (auto) 55.9 %
[2019-10-17 05:24] LABS: Albumin Level 2.3 gm/dl (3.4-5.0); Bilirubin,Total 2.9 mg/dl (0.2-1); Phosphorus 2.4 mg/dl (2.5-4.9); Total Protein 5.7 gm/dl (6.4-8.2)
[2019-10-17] MEDS ORDERED: POTASSIUM PHOS 3 MMOL/1 ML INFUSION IV STA (05:27)
[2019-10-17] MEDS ORDERED: POTASSIUM PHOSPHATE 15 MMOL in SODIUM CHLORIDE 0.9% 250 ML IV ONE (05:45)
[2019-10-17] MEDS: POTASSIUM CHLORIDE / WTR 10 MEQ/100 ML PLCT IV SCH ×2 (05:57→07:02)
--- NOTE | 2019-10-17 06:05 | Critical Care Progress Note ---
Date of Service October 17, 2019 Assessment & Plan (1) Admitted to intensive care unit: Reason Critically Ill: 53- yo F with PMHX of alcoholic cirrhosis admitted on 10/15 for acute blood loss anemia secondary to presumed upper GI bleed. Sent to the ICU for monitoring in the setting of labile blood pressures. 24 hr events: Patient has received 4 units of pRBCs and 2 units of FFP to day. Hemoglobin has stabilized at 10. Hemodynamically, she has maintained MAPs above her goal of 60 without additional transfusions. GI performed EGD yesterday which revealed source of bleed to be portal gastropathy. No signs of EtOh withdrawal - most recent AWSS score 1. She has been transfused 2 units of platelets, level up to 32. Her SBP prophylaxis was deescalated to Rocephin. Plan to remove Eastman today. Neuro: [facility] ICU: Negative * Hx of Alcohol abuse: Patient reports drinking one 1/2 to 1 pint of bourbon per day. recall once prior episode of withdrawal for which required Ativan and Librium use. no signs of withdrawal on exam today. Currently on AWSS protocol with IV lorazepam ordered. Most recent AWSS score 1. continue thiamine and folate supplement daily. consider rehab upon discharge. Cardiac: * Hypotension: BP currently at 103/77, MAP of 86. She is in the setting of acute blood loss, however review of chart shows that she typically runs hypotensive. currently +4.8 L of fluid. Transfuse pRBCs in order to maintain goal MAP >60 -continue equipment monitor phototypesetting Respiratory: * Hx COPD - secondary to longstanding tobacco use. continue home Breo-Ellipta and albuterol inhaler prn. Ipratropium nebs ordered prn. - no home O2 requirement. currently satting 93 on 2L via NC. wean O2 as tolerated. - CXR 10/16 reviewed, showing no acute process GI: * Upper GI bleed: EGD showing source of bleed to be portal gastropathy. GI recommended continuing Octreotide and Protonix drip for 2 days, and Rocephin for SBP prophylaxis for 5 additional days. -Blood product transfusion consent form signed and in chart. * Hx Esophageal varices. Noted to be grade 1 on data from 2017. visualized on EG D from 10/16, considered grade 2 without stigmata. * Acute on Chronic hepatic failure: AST at up to 1060, ALT up to 255. Patient with underlying history of alcoholic cirrhosis and history of hepatitis C infection. One dose of IV vitamin K administered in ED. Ammonia 69 on admission, down to 39. INR currently 1.6. Albumin low at 2.4. fibrinogen at 153. continue to trend transaminases. Avoid Tylenol use. * Hx of Alcoholic Cirrhosis - liver enzymes as above. known portal hypertension. Portal Vein US 10/15 confirmed patent hepatic and portal veins. * Hx Hepatitis C infection - patient reports she received treatment at [facility] "many years ago" with cure; viral loads undetectable when checked 10/2016 RENAL/LYTES: * LAYO - baseline Cr 0.6. At 1.61 on admission, down to 1.41. BUN/Cr ratio >20. Likely pre-renal in etiology, secondary to known volume loss. Fluid and blood product replacement. continue to trend. - Normosol 80mls/hr for maintenance fluids. * Electrolyte derangements: Calcium corrects to 8.6. Na normal at 139. Mag normal at 2.4. Phos low at 2.4. K low at 3.2. replacement ordered. continue to monitor levels. : * Eastamn - strict Is/Os. Currently +4.48L of fluid with > 2 liters of urine output. ENDO: * ICU protocol for hyperglycemia. No underlying history of diabetes. Blood sugars ~ 130-150s HEME: * Acute blood loss anemia secondary to GI bleed: Hgb 7.5 on admission, up to 10.0 today. Patient has received 4 units of pRBCs, 2 units of FFP. continue to monitor with H+H q8. * thrombocytopenia- 55 on admission, down to 32 today. has been transfused 2 units. chart reviews this to be chronic issue, likely secondary to bone marrow suppression with chronic EToh use. ID: * SBP prophylaxis: deescalated to Rocephin 1g, IV ,daily. Currently on day 2 of 5. - WBC normal - nasal MRSA swab neg LINES/IV ACCESS: * PIVs x3 * Eastman catheter CODE STATUS: Full Code DVT PROPHYLAXIS: chemical ppx contraindicated in setting of acute GI bleed Thank you for allowing us to participate in the care of this patient. Please refer to my attending physician's documentation for any further recommendations. Admission and Anticipated Discharge Date Admission Date: October 15, 2019 Supervising Physician Co-Signing Physician Notes Dr. Louie was resident physician during care of patient. I separately evaluated patient for bah portions of the history and the exam. I was present during the critical portion of medical decision making, and I discussed the case with the resident. I generally agree with the findings and plan. Patient's H&H has stabilized, patient was discussed in multidisciplinary rounds, I also discussed with Dr. Cortez of gastroenterology, initiating N- acetylcysteine, stable for downgrade out of ICU Subjective Patient in ICU. Feeling better than yesterday. Reports being irritated by urinary catheter. Requests an Ativan Review of Systems Gastrointestinal: + abdominal pain and + bloating; no nausea Physical Exam Constitutional: WD/WN, vitals as above not diaphoretic Eyes: + anicteric sclerae ENMT: external ear and nose normal, oropharynx normal Neck: normal visual inspection and trachea midline Respiratory: normal respiratory effort, lungs clear to auscultation no cough Auscultation: no crackles, no rales, no rhonchi, no wheezes and no pleural rub Cardiovascular: RRR, no murmur, no edema Heart Sounds: normal S1 and normal S2 Extremities: no pedal edema Gastrointestinal (Abdomen): Inspection/Auscultation: + abdomen distended and normal bowel sounds Percussion/Palpation: + abdomen tender (RUQ) and abdomen soft; no guarding Skin: no rashes, warm and dry + ecchymosis ( R thigh ) Neurologic: Motor/Sensory: no tremor Psychiatric: A+Ox3, euthymic affect Genitourinary: Eastman catheter in place draining yellow colored urine Results & Data ([facility]) Vital Signs (Past 12 Hours) Vital Signs Temp Pulse Resp BP Pulse Ox 10/17/19 05:33 67 18 103/56 L 93 10/17/19 04:32 36.9 C 66 16 120/74 92 10/17/19 03:32 65 14 100/68 92 10/17/19 02:32 73 22 99/68 L 92 10/17/19 01:00 65 14 101/71 94 10/17/19 00:32 37.0 C 65 21 124/77 96 10/16/19 23:32 66 24 95/64 L 93 10/16/19 22:32 63 22 120/79 95 10/16/19 21:30 78 21 92/57 L 92 10/16/19 20:01 37.2 C 69 15 98/76 L 93 10/16/19 19:01 66 16 104/63 91 Resident Activity Tracking Resident Involvement: Resident Care Provided Care Provided: Adult Hospital Medicine
[2019-10-17] MEDS: FOLIC ACID 1 MG in SYRINGE 9.8 ML IV SCH (08:32)
[2019-10-17] MEDS: THIAMINE HCL 100 MG in SYRINGE 9 ML IV SCH (08:32)
[2019-10-17] MEDS: FLUTICASONE/VILANTEROL 100/25MCG 14 PUFFS/INHALER INH SCH (08:32)
[2019-10-17] MEDS ORDERED: LORazepam 2 MG/4 ML VIAL IV PRN (10:36)
[2019-10-17] MEDS ORDERED: LORazepam 3 MG/6 ML VIAL IV PRN (10:36)
[2019-10-17] MEDS ORDERED: ATIVAN IV ALCOHOL WITHDRAWL IV PRN (10:36)
[2019-10-17] MEDS ORDERED: AcetylCYSTEINE IV 21 HR REGIMEN (>40KG) IV STA (10:51)
--- NOTE | 2019-10-17 10:55 | XRay Report ---
KUB HISTORY: Acute generalized abdominal pain with distention abd distension, pain COMPARISON: CT abdomen and pelvis 06/25/2018 FINDINGS: Air-filled loops of large and small bowel are noted with mild small bowel distention measur ing up to 3.0 cm. No evidence of high-grade small bowel obstruction. Pelvic basin calcifications sugg est probable phleboliths. No renal calculi. No ureteral calculi. No pneumoperitoneum or pneumatosis. Cannulated screw projects superior to the right hip. Right hip osteoarthritis. No fracture. IMPRESSION: 1. No high-grade small bowel obstruction, pneumatosis or pneumoperitoneum. 2. Air-filled loops of large and small bowel are noted with mild small bowel distention. Findings may reflect ileus versus low-grade obstruction. Follow-up recommended. ACT 112: Positive. There are findings on this exam that require communication between the performing entity and the patient following Patient Test Result Information Act ([place] Act 112) guidelines. The above report was generated using voice recognition software. It may contain grammatical, syntax o r spelling errors. Electronically signed by: Abdirizak Plaza M.D. 10/17/2019 10:53 AM
[2019-10-17] MEDS ORDERED: ACETYLCYSTEINE IV SCH ×3 (11:30→16:30)
[2019-10-17] MEDS ORDERED: DEXTROSE 5% IV SCH ×3 (11:30→16:30)
--- NOTE | 2019-10-17 11:53 | Gastroenterology Progress Note ---
Date of Service October 17, 2019 Assessment & Plan (1) Acute blood loss anemia: (2) Cirrhosis of liver: (3) GI bleed: Pt is a 53 y/o female w hx of HCV (treated w [facility]da, SVR attained), ETOH cirrhosis w Grade I esophageal varices, portal HTN, continued ETOH use who presented w dark bloody emesis, stools; noted to be anemic, hypotensive on presentation. Blood ct improved after 4U PRBC overnight though noted Plt w significant drop 55->20 this AM. She hasn't had any more emesis or BMs since admitted. Elevated LFTs ? related to ETOH hepatitis vs rhabdo (increased CK) MELD 26 Maddrey's Discriminant Function Score 35 EGD done on 10/16 showed hiatal hernia, grade 2 varices w/o stigmata of bleeding, severe portal gastropathy. Suspects she was bleeding from portal gastropathy - Continue PPI and Octreotide gtts x 2 days - Ceftriaxone IV antibx x 5 days - Ok for CL diet from our standpoint. - Monitor H/H and transfuse prn - ? etiology of rising LFTs. Will repeat CK and APAP levels, and initiate N- acytelcysteine protocol for possible APAP toxicity & possibly alcoholic hepatitis - Obtain KUB given abd distension to eval for stool burden - Replete K - DT protocol - Consider ETOH rehab on DC ; she also needs f/u in GI clinic for continued cirrhosis care Attg add: I interviewed and examined pt, reviewed chart and labs. Events noted. No further bleeding. Abd distended, non tender. Labs show improved creat, stable hgb, marked elevation of AST. RECS: Hold octreotide for ileus, IV NAC for alc hep/APAP tox and follow LFT's, check U na and follow creat Admission and Anticipated Discharge Date Admission Date: October 15, 2019 Subjective Pt AAOx3 today. She is c/o abd discomfort, denies CP, SOB, abd pain, n/v. Not passing much flatus. No BMs VS and labs reviewed: BP improved 90s/60s. Blood ct and plt improved some after total of 4U PRBC, 2U FFP, 1U Plt. LFTs continues to rise especially w significantly elevated AST >1000 Review of Systems Review of Systems: All systems reviewed & are unremarkable except as noted in HPI & below Physical Exam Constitutional: WD/WN, vitals as above cooperative and comfortable Eyes: PERRL, conjunctivae normal, anicteric sclerae ENMT: external ear and nose normal, oropharynx normal Respiratory: no respiratory distress and does not use accessory muscles Auscultation: + diminished lung sounds Cardiovascular: RRR, no murmur, no edema Gastrointestinal (Abdomen): Inspection/Auscultation: + hypoactive bowel sounds Percussion/Palpation: + abdomen tender (diffuse) and + abdomen firm Skin: no rashes, warm and dry + jaundice Neurologic: Motor/Sensory: + asterixis Lymphatic: no lymphedema Results & Data ([facility]) Vital Signs (Past 12 Hours) Vital Signs Temp Pulse Resp BP Pulse Ox 10/17/19 10:32 64 22 97/69 L 93 10/17/19 10:00 61 19 92 10/17/19 09:32 67 18 102/64 91 10/17/19 08:32 69 17 111/71 92 10/17/19 08:05 92 10/17/19 08:00 36.8 C 65 14 85 L 10/17/19 07:32 70 12 95/58 L 93 10/17/19 07:00 67 16 92 10/17/19 06:32 65 12 103/77 93 10/17/19 05:33 67 18 103/56 L 93 10/17/19 04:32 36.9 C 66 16 120/74 92 10/17/19 03:32 65 14 100/68 92 10/17/19 02:32 73 22 99/68 L 92 10/17/19 01:00 65 14 101/71 94 10/17/19 00:32 37.0 C 65 21 124/77 96 (1) GI bleed GI bleed type/associated pathology: unspecified gastrointestinal hemorrhage type Qualified Code(s): K92.2 - Gastrointestinal hemorrhage, unspecified (2) Cirrhosis of liver Ascites presence: unspecified Hepatic cirrhosis type: alcoholic cirrhosis Qualified Code(s): K70.30 - Alcoholic cirrhosis of liver without ascites
[2019-10-17] MEDS: cefTRIAXone SODIUM 1,000 MG in DEXTROSE 5% 50 ML IV SCH (13:31)
--- NOTE | 2019-10-17 14:36 | Billing Data ---
Date of Service October 17, 2019 Coding Level of Care Code 27800 Subseq Hosp Care Lvl 3
--- NOTE | 2019-10-17 18:22 | Hospitalist Progress Note ---
Date of Service October 17, 2019 Assessment & Plan (1) UGIB (upper gastrointestinal bleed): (2) Cirrhosis of liver: (3) Acute blood loss anemia: Decompensated alcoholic cirrhosis with GI bleed [likely upper GI] Patient has history of varices. Acute blood loss anemia from upper GI bleed with hypotension Received 4 PRBCs since admission, 2 FFP's and 1 platelet MELD 26 Maddrey's Discriminant Function Score 35 EGD done on 10/16 showed hiatal hernia, grade 2 varices w/o stigmata of bleeding, severe portal gastropathy GI on board continue IV PPI and Octreotide gtts x 2 days Ceftriaxone IV antibx x 5 days for SBP Hgb stable Starting on clear liquid diet Monitor CBC (4) Thrombocytopenia: Platelet was 55 on admission Received 1 unit platelet during admission Platelet 32 today Will continue to monitor platelet (5) Transaminitis: LFT worsening with AST 1060 and ALT 255 Acetylcysteine protocol starting by GI Monitor CMP (6) COPD (chronic obstructive pulmonary disease): Stable Continue home nebs (7) Hepatitis C: Status post treatment with reported SVR (8) LAYO (acute kidney injury): LAYO secondary to hemorrhagic shock. Creatinine on admission was 1.61, continue IV fluids and resuscitation. Creatinine this morning is 1.4 Monitor BMP (9) Electrolyte abnormality: K 3.2 today K replaced Monitor BMP (10) Alcohol abuse: On Alcohol protocol with Ativan Will monitor closely for alcohol withdrawal and DT Counseling on alcohol cessation Consider inpatient alcohol rehab once stable DVT prophylaxis SCDs for now Admission and Anticipated Discharge Date Admission Date: October 15, 2019 Subjective Pt was seen and examined Lying in bed with no distress Denies any hallucination, chest pain, palpitation and dizziness Physical Exam Physical Exam: General- No acute distress Head- atraumatic Eyes- PERRL ENT- oropharynx clear Neck- supple, no JVD Lungs- +diminished BS Heart- regular rhythm; no murmur Abdomen- normal bowel sounds, soft, nontender Extremities- no calf tenderness, +tremor Neuro- alert, oriented, PERRL, EOMI; no facial palsy; no dysarthria Skin- warm & dry Results & Data ([facility]) Vital Signs (Past 12 Hours) Vital Signs Temp Pulse Resp BP Pulse Ox 10/17/19 18:00 63 19 116/78 94 10/17/19 17:00 70 19 110/73 93 10/17/19 16:02 37.0 C 68 24 119/75 91 10/17/19 15:02 67 18 91 10/17/19 15:01 65 16 123/79 91 10/17/19 14:00 75 19 10/17/19 13:01 61 14 115/73 95 10/17/19 12:00 36.9 C 75 15 119/79 10/17/19 11:32 62 17 112/62 90 10/17/19 10:32 64 22 97/69 L 93 10/17/19 10:00 61 19 92 10/17/19 09:32 67 18 102/64 91 10/17/19 08:32 69 17 111/71 92 10/17/19 08:05 92 10/17/19 08:00 36.8 C 65 14 85 L 10/17/19 07:32 70 12 95/58 L 93 10/17/19 07:00 67 16 92 10/17/19 06:32 65 12 103/77 93 (1) Cirrhosis of liver Ascites presence: unspecified Hepatic cirrhosis type: alcoholic cirrhosis Qualified Code(s): K70.30 - Alcoholic cirrhosis of liver without ascites
[2019-10-17] MEDS: LORazepam 1 MG/2 ML VIAL IV PRN (20:48)
[2019-10-17] MEDS: bisacodyL 5 MG TABEC PO SCH (20:53)
[2019-10-18] MEDS: PANTOprazole 40 MG in DEXTROSE 5% 100 ML IV SCH ×5 (00:59→22:08)
[2019-10-18] MEDS: LORazepam 1 MG/2 ML VIAL IV PRN (05:45)
[2019-10-18 07:12] LABS: INR 1.7 (0.9-1.1); Prothrombin Time 16.5 Seconds (9.0-12.0)
[2019-10-18 07:38] LABS: Albumin Level 2.1 gm/dl (3.4-5.0); BUN Creatinine Ratio 16.1 (10-20); Bilirubin Direct 2.5 mg/dl (0-0.2); Bilirubin,Total 3.5 mg/dl (0.2-1); Calcium 7.3 mg/dl (8.5-10.1); Creatinine Clr Calc Pharmacy 53.3 ml/min; Est GFR (African American) 60.6; Est GFR (Non-African American) 52.2; Magnesium 2.3 mg/dl (1.8-2.4); Phosphorus 1.6 mg/dl (2.5-4.9); Potassium 2.8 mmol/L (3.5-5.1); Total Protein 5.7 gm/dl (6.4-8.2)
[2019-10-18] MEDS ORDERED: POTASSIUM PHOS 3 MMOL/1 ML INFUSION IV STA (09:03)
[2019-10-18] MEDS: THIAMINE HCL 100 MG in SYRINGE 9 ML IV SCH (09:03)
[2019-10-18] MEDS: FLUTICASONE/VILANTEROL 100/25MCG 14 PUFFS/INHALER INH SCH (09:03)
[2019-10-18] MEDS: FOLIC ACID 1 MG in SYRINGE 9.8 ML IV SCH (09:03)
[2019-10-18] MEDS ORDERED: POTASSIUM CHLORIDE 20 MEQ TABCR PO ONE (09:30)
[2019-10-18] MEDS ORDERED: POTASSIUM PHOSPHATE 21 MMOL in SODIUM CHLORIDE 0.9% 500 ML IV ONE (09:30)
[2019-10-18 09:31] LABS: Hematocrit (blood only) 30.3 % (37-47); Hemoglobin 10.4 g/dL (12.0-16.0); Mean Corpuscular Hemoglobin 31.8 pg (25-34); Mean Corpuscular Hgb Conc 34.3 g/dL (32-36); Mean Corpuscular Volume 92.7 fL (80-100); RDW Coefficient of Variation 16.8 % (11.5-14.5); RDW Standard Deviation 55.9 fL (36.4-46.3); Red Blood Count 3.27 M/uL (4.2-5.4); White Blood Count 4.53 K/uL (4.8-10.8)
[2019-10-18 10:03] LABS: Mean Platelet Volume 11.1 fL (7.4-10.4); Platelet Count 31 K/uL (130-400)
--- NOTE | 2019-10-18 10:57 | Gastroenterology Progress Note ---
Date of Service October 18, 2019 Assessment & Plan (1) Acute blood loss anemia: (2) Cirrhosis of liver: (3) GI bleed: Pt is a 53 y/o female w hx of HCV (treated w [facility]da, SVR attained), ETOH cirrhosis w Grade I esophageal varices, portal HTN, continued ETOH use who presented w dark bloody emesis, stools; noted to be anemic, hypotensive on presentation. Blood ct improved after 4U PRBC overnight though noted Plt w significant drop 55->20 this AM. She hasn't had any more emesis or BMs since admitted. Elevated LFTs ? related to ETOH hepatitis vs rhabdo (increased CK) MELD 26 Maddrey's Discriminant Function Score 35 EGD done on 10/16 showed hiatal hernia, grade 2 varices w/o stigmata of bleeding, severe portal gastropathy. Suspects she was bleeding from portal gastropathy - Will DC PPI gtt, change to Protonix 40mg BID - Ceftriaxone IV antibx x 5 days - CL diet - Monitor H/H and transfuse prn - ? etiology of rising LFTs. Continue N-Acetylcysteine protocol for possible APAP toxicity (APAP levels unable to be obtained yesterday) vs ETOH hepatitis. Will also obtain MRCP today to r/o biliary obstruction. - Dulcolax 10mg PO qHS - Replete K & PO4 - DT protocol - Consider ETOH rehab on DC ; she also needs f/u in GI clinic for continued cirrhosis care Admission and Anticipated Discharge Date Admission Date: October 15, 2019 Supervising Physician Co-Signing Physician Notes I performed a history and physical examination of the patient today, including specifically on physical exam - soft abdomen. I have discussed the patient's management with the advanced practitioner. Please refer to the nurse practitioner's note for the documented findings and plan of care. Obtain MRCP Subjective Pt moved out of ICU. BP, Cr normal & stable. No further signs of GI bleeding. She reports decreased abd pain today, passing little flatus. Denies n/v. She is determined to go home today, citing reason of moving to different home on 10/25/2019 Review of Systems Review of Systems: All systems reviewed & are unremarkable except as noted in HPI & below Physical Exam Constitutional: WD/WN, vitals as above comfortable Eyes: PERRL, conjunctivae normal, anicteric sclerae ENMT: external ear and nose normal, oropharynx normal Respiratory: no respiratory distress and does not use accessory muscles Auscultation: + diminished lung sounds Cardiovascular: RRR, no murmur, no edema Gastrointestinal (Abdomen): Inspection/Auscultation: + hypoactive bowel sounds Percussion/Palpation: abdomen soft; abdomen nontender (diffuse) Skin: no rashes, warm and dry + jaundice Neurologic: Motor/Sensory: no asterixis Lymphatic: no lymphedema Results & Data ([facility]) Vital Signs (Past 12 Hours) Vital Signs Temp Pulse Pulse Pulse Resp BP Pulse Ox 10/18/19 07:31 37 C 69 16 114/73 98 10/18/19 03:30 37.1 C 68 20 115/66 93 10/18/19 00:33 69 10/17/19 23:01 36.7 C 68 18 120/75 90 (1) GI bleed GI bleed type/associated pathology: unspecified gastrointestinal hemorrhage type Qualified Code(s): K92.2 - Gastrointestinal hemorrhage, unspecified (2) Cirrhosis of liver Ascites presence: unspecified Hepatic cirrhosis type: alcoholic cirrhosis Qualified Code(s): K70.30 - Alcoholic cirrhosis of liver without ascites
[2019-10-18] MEDS: cefTRIAXone SODIUM 1,000 MG in DEXTROSE 5% 50 ML IV SCH (14:47)
--- NOTE | 2019-10-18 17:36 | Magnetic Resonance Report ---
Study: MRI abdomen/liver. COMPARISON: 01/15/2016 HISTORY: Hepatic cirrhosis FINDINGS: Interval development of small bilateral pleural effusions. Mild perihepatic as well as ramo splenic and upper abdominal ascites. Signal characteristics of the kidneys are unremarkable. The portal and hepatic venous structures appe ar patent. The upper abdominal bowel pattern is nonobstructive. Trace body wall anasarca. IMPRESSION: 1. Hepatic cirrhosis. 2. Hepatic and portal venous structures are patent. 3. Interval development of mild abdominal ascites with small bilateral pleural effusions. 4. Nonobstructive bowel pattern Electronically signed by: Bertram Fuchs M.D. 10/18/2019 5:34 PM
--- NOTE | 2019-10-18 19:36 | Hospitalist Progress Note ---
Date of Service October 18, 2019 Assessment & Plan (1) UGIB (upper gastrointestinal bleed): (2) Cirrhosis of liver: (3) Acute blood loss anemia: Decompensated alcoholic cirrhosis with GI bleed [likely upper GI] Patient has history of varices. Acute blood loss anemia from upper GI bleed with hypotension Received 4 PRBCs since admission, 2 FFP's and 1 platelet MELD 26 Maddrey's Discriminant Function Score 35 EGD done on 10/16 showed hiatal hernia, grade 2 varices w/o stigmata of bleeding, severe portal gastropathy GI on board continue IV PPI and Octreotide gtts x 2 days Will transition to oral PPI Ceftriaxone IV antibx x 5 days for SBP Hgb stable at 10.4 Continue clear liquid diet Monitor CBC (4) Thrombocytopenia: Platelet was 55 on admission Received 1 unit platelet during admission Platelet 31 today Will continue to monitor platelet (5) Transaminitis: LFT worsening with AST 1060 and ALT 255, now trending down slowly Completed Acetylcysteine protocol as per GI Schedule for MRCP today Case discussed with GI and OK to discharge if MRCP negative Monitor CMP (6) COPD (chronic obstructive pulmonary disease): Stable Continue home nebs (7) Hepatitis C: Status post treatment with reported SVR (8) LAYO (acute kidney injury): LAYO secondary to hemorrhagic shock. Creatinine on admission was 1.61, continue IV fluids and resuscitation. Creatinine stable Monitor BMP (9) Electrolyte abnormality: K 2.8 today and phos 1.6 K and phos replaced Monitor electrolytes (10) Alcohol abuse: On Alcohol protocol with Ativan Will monitor closely for alcohol withdrawal and DT Counseling on alcohol cessation Consider inpatient alcohol rehab once stable DVT prophylaxis SCDs for now Admission and Anticipated Discharge Date Admission Date: October 15, 2019 Subjective Pt was seen and examined Lying in bed with no distress Pt said that she feels much better She said that she feels tired Denies any chest pain, palpitation, dizziness and SOB Physical Exam Physical Exam: General- No acute distress Head- atraumatic Eyes- PERRL ENT- oropharynx clear Neck- supple, no JVD Lungs- +diminished BS Heart- regular rhythm; no murmur Abdomen- normal bowel sounds, soft, nontender Extremities- no calf tenderness, +tremor Neuro- alert, oriented, PERRL, EOMI; no facial palsy; no dysarthria Skin- warm & dry Results & Data ([facility]) Vital Signs (Past 12 Hours) Vital Signs Temp Pulse Pulse Resp BP Pulse Ox 10/18/19 16:07 65 10/18/19 15:11 36.8 C 78 22 125/84 92 10/18/19 12:28 36.5 C 77 22 117/81 92 10/18/19 11:23 36.5 C 80 20 109/66 92 (1) Cirrhosis of liver Ascites presence: unspecified Hepatic cirrhosis type: alcoholic cirrhosis Qualified Code(s): K70.30 - Alcoholic cirrhosis of liver without ascites
[2019-10-18] MEDS: bisacodyL 5 MG TABEC PO SCH (20:58)
[2019-10-19] MEDS: PANTOprazole 40 MG in DEXTROSE 5% 100 ML IV SCH ×2 (02:18→07:14)
[2019-10-19] MEDS: THIAMINE HCL 100 MG in SYRINGE 9 ML IV SCH (08:17)
[2019-10-19] MEDS: FLUTICASONE/VILANTEROL 100/25MCG 14 PUFFS/INHALER INH SCH (08:17)
[2019-10-19 08:26] LABS: Hematocrit (blood only) 34.1 % (37-47); Hemoglobin 11.7 g/dL (12.0-16.0); Mean Corpuscular Hemoglobin 32.2 pg (25-34); Mean Corpuscular Hgb Conc 34.3 g/dL (32-36); Mean Corpuscular Volume 93.9 fL (80-100); RDW Coefficient of Variation 17.6 % (11.5-14.5); Red Blood Count 3.63 M/uL (4.2-5.4); White Blood Count 4.77 K/uL (4.8-10.8)
[2019-10-19 08:30] LABS: Mean Platelet Volume 10.9 fL (7.4-10.4); Platelet Count 42 K/uL (130-400)
[2019-10-19 09:07] LABS: Albumin Globulin Ratio 0.6 (0.9-2); Albumin Level 2.4 gm/dl (3.4-5.0); BUN Creatinine Ratio 8.9 (10-20); Bilirubin,Total 6.5 mg/dl (0.2-1); Calcium 7.7 mg/dl (8.5-10.1); Creatinine Clr Calc Pharmacy 56.3 ml/min; Est GFR (African American) 65.2; Est GFR (Non-African American) 56.3; Globulin 3.8 gm/dl (2.5-4.0); Phosphorus 2.3 mg/dl (2.5-4.9); Potassium 3.1 mmol/L (3.5-5.1); Total Protein 6.2 gm/dl (6.4-8.2)
[2019-10-19] MEDS: LORazepam 1 MG/2 ML VIAL IV PRN (09:11)
[2019-10-19] MEDS: NICOTINE 7 MG/24 HR TDSY TD SCH (09:22)
[2019-10-19] MEDS: FOLIC ACID 1 MG in SYRINGE 9.8 ML IV SCH (09:53)
[2019-10-19] MEDS ORDERED: POTASSIUM PHOS 3 MMOL/1 ML INFUSION IV STA (11:00)
[2019-10-19] MEDS ORDERED: POTASSIUM CHLORIDE 20 MEQ TABCR PO STA (11:00)
[2019-10-19] MEDS ORDERED: POTASSIUM PHOSPHATE 15 MMOL in SODIUM CHLORIDE 0.9% 250 ML IV STA (11:02)
--- NOTE | 2019-10-19 11:12 | Gastroenterology Progress Note ---
Date of Service October 19, 2019 Assessment & Plan (1) Acute blood loss anemia: (2) Cirrhosis of liver: (3) GI bleed: Pt is a 53 y/o female w hx of HCV (treated w Harvoni, SVR attained), ETOH cirrhosis w Grade I esophageal varices, portal HTN, continued ETOH use who presented w dark bloody emesis, stools; noted to be anemic, hypotensive on presentation. Blood ct improved after 4U PRBC, 2U FFP, 1U Plt. She hasn't had any more emesis or BMs since admitted. Elevated LFTs ? related to ETOH hepatitis vs rhabdo (increased CK) but improved w N-acetylcystine MELD 26 Maddrey's Discriminant Function Score 35 EGD done on 10/16 showed hiatal hernia, grade 2 varices w/o stigmata of bleeding, severe portal gastropathy. Suspects she was bleeding from portal gastropathy MRCP non diagnostic for biliary obstruction - Continue Protonix 40mg BID. Defer non selective beta mark given recent GI bleeding and hypotension; also unsure if she will f/u in clinic to titrate mets - Ceftriaxone IV antibx x 5 days - CL diet; advance as tolerated - Monitor H/H and transfuse prn - Strict ETOh cessation - Plan for dc tomorrow if LFT's cont to improve. Consider ETOH rehab on DC ; will help set up f/u in GI clinic for continued cirrhosis care. Attg add: I interviewed and examined pt, reviewed chart and labs. Pt improved, with stable hgb and no clinic evidence of bleeding. No asterixis or vol overload on exam. Labs show improved creat, rise in bili but falling transaminases. MRCP non-dx. Plan as above, please call [facility] questions over weekend. Admission and Anticipated Discharge Date Admission Date: October 15, 2019 Subjective Pt wants to go home. Denies abd pain, n/v symptoms. Tolerating diet well. LFTs w rise in Tbili to 6, transaminases decreasing MRCP non diagnostic for biliary systems Review of Systems Review of Systems: All systems reviewed & are unremarkable except as noted in HPI & below Physical Exam Constitutional: WD/WN, vitals as above comfortable Eyes: PERRL, conjunctivae normal, anicteric sclerae ENMT: external ear and nose normal, oropharynx normal Respiratory: no respiratory distress and does not use accessory muscles Auscultation: + diminished lung sounds Cardiovascular: RRR, no murmur, no edema Gastrointestinal (Abdomen): Inspection/Auscultation: normal bowel sounds Percussion/Palpation: abdomen soft; abdomen nontender Skin: no rashes, warm and dry + jaundice Neurologic: Motor/Sensory: no asterixis Lymphatic: no lymphedema Results & Data ([facility]) Vital Signs (Past 12 Hours) Vital Signs Temp Pulse Pulse Resp BP BP Pulse Ox 10/19/19 11:00 36.8 C 77 18 92/60 L 90 10/19/19 07:29 67 10/19/19 07:00 36.7 C 87 18 121/80 90 10/19/19 04:19 36.8 C 71 20 122/72 98 10/19/19 00:00 65 (1) GI bleed GI bleed type/associated pathology: unspecified gastrointestinal hemorrhage type Qualified Code(s): K92.2 - Gastrointestinal hemorrhage, unspecified (2) Cirrhosis of liver Ascites presence: unspecified Hepatic cirrhosis type: alcoholic cirrhosis Q ualified Code(s): K70.30 - Alcoholic cirrhosis of liver without ascites
[2019-10-19] MEDS: cefTRIAXone SODIUM 1,000 MG in DEXTROSE 5% 50 ML IV SCH (14:11)
--- NOTE | 2019-10-19 16:04 | Hospitalist Progress Note ---
Date of Service October 19, 2019 Assessment & Plan (1) UGIB (upper gastrointestinal bleed): (2) Cirrhosis of liver: (3) Acute blood loss anemia: Decompensated alcoholic cirrhosis with GI bleed [likely upper GI] Patient has history of varices. Acute blood loss anemia from upper GI bleed with hypotension Received 4 PRBCs since admission, 2 FFP's and 1 platelet MELD 26 Maddrey's Discriminant Function Score 35 EGD done on 10/16 showed hiatal hernia, grade 2 varices w/o stigmata of bleeding, severe portal gastropathy GI on board continue IV PPI and Octreotide gtts x 2 days Continue PO PPI BID Ceftriaxone IV antibx x 5 days for SBP prophylaxix Hgb stable at 11.7 Will advance diet as tolerated Monitor CBC (4) Thrombocytopenia: Platelet was 55 on admission Received 1 unit platelet during admission Platelet 42 today Will continue to monitor platelet (5) Transaminitis: LFT worsening with AST 1060 and ALT 255, now trending down slowly to AST 701 and ALT 294 Completed Acetylcysteine protocol as per GI MRCP showed hepatic and portal venous structures are patent. Interval development of mild abdominal ascites with small bilateral pleural effusions. Case discussed with GI and recommended to keep for 1 more day to follow LFT Monitor CMP (6) COPD (chronic obstructive pulmonary disease): Stable Continue home nebs (7) Hepatitis C: Status post treatment with reported SVR (8) LAYO (acute kidney injury): LAYO secondary to hemorrhagic shock. Creatinine on admission was 1.61, continue IV fluids and resuscitation. Creatinine stable Monitor BMP (9) Electrolyte abnormality: K 3.1 today and phos 2.3 K and phos replaced Monitor electrolytes (10) Alcohol abuse: On Alcohol protocol with Ativan Will monitor closely for alcohol withdrawal and DT Counseling on alcohol cessation Consider inpatient alcohol rehab, but pt refused DVT prophylaxis SCDs for now Admission and Anticipated Discharge Date Admission Date: October 15, 2019 Subjective Pt was seen and examined Lying in bed with with no distress Pt wants to go home today She said that she is in the process to move to a new house She said that after she moves, she will consider to go to inpatient alcohol rehab Denies any chest pain, palpitation, dizziness and SOB Physical Exam Physical Exam: General- No acute distress Head- atraumatic Eyes- PERRL ENT- oropharynx clear Neck- supple, no JVD Lungs- +diminished BS Heart- regular rhythm; no murmur Abdomen- normal bowel sounds, soft, nontender Extremities- no calf tenderness, +tremor Neuro- alert, oriented, PERRL, EOMI; no facial palsy; no dysarthria Skin- warm & dry Results & Data ([facility]) Vital Signs (Past 12 Hours) Vital Signs Temp Pulse Pulse Resp BP BP Pulse Ox 10/19/19 15:23 97/68 L 10/19/19 15:11 36.6 C 69 18 89/51 L 97 10/19/19 11:00 36.8 C 77 18 92/60 L 90 10/19/19 07:29 67 10/19/19 07:00 36.7 C 87 18 121/80 90 10/19/19 04:19 36.8 C 71 20 122/72 98 (1) Cirrhosis of liver Ascites presence: unspecified Hepatic cirrhosis type: alcoholic cirrhosis Qualified Code(s): K70.30 - Alcoholic cirrhosis of liver without ascites
[2019-10-19] MEDS: bisacodyL 5 MG TABEC PO SCH (21:01)
[2019-10-19] MEDS: PANTOprazole 40 MG TAB PO SCH (21:01)
[2019-10-20] MEDS: FLUTICASONE/VILANTEROL 100/25MCG 14 PUFFS/INHALER INH SCH (07:36)
[2019-10-20] MEDS: PANTOprazole 40 MG TAB PO SCH (07:37)
[2019-10-20] MEDS: THIAMINE HCL 100 MG in SYRINGE 9 ML IV SCH (07:37)
[2019-10-20] MEDS: FOLIC ACID 1 MG in SYRINGE 9.8 ML IV SCH (07:37)
[2019-10-20] MEDS: NICOTINE 7 MG/24 HR TDSY TD SCH (07:37)
[2019-10-20 08:24] LABS: Albumin Level 2.4 gm/dl (3.4-5.0); BUN Creatinine Ratio 8.3 (10-20); Calcium 8.1 mg/dl (8.5-10.1); Creatinine Clr Calc Pharmacy 56.3 ml/min; Est GFR (African American) 65.2; Est GFR (Non-African American) 56.3; Potassium 3.4 mmol/L (3.5-5.1)
[2019-10-20] MEDS ORDERED: POTASSIUM PHOS 3 MMOL/1 ML INFUSION IV STA (08:26)
[2019-10-20 08:36] LABS: Albumin Globulin Ratio 0.6 (0.9-2); Bilirubin,Total 7.9 mg/dl (0.2-1); Globulin 3.9 gm/dl (2.5-4.0); Total Protein 6.3 gm/dl (6.4-8.2)
[2019-10-20] MEDS ORDERED: POTASSIUM PHOSPHATE 15 MMOL in SODIUM CHLORIDE 0.9% 250 ML IV ONE (09:00)
--- NOTE | 2019-10-20 09:32 | Hospitalist Progress Note ---
Date of Service October 20, 2019 Assessment & Plan (1) UGIB (upper gastrointestinal bleed): (2) Cirrhosis of liver: (3) Acute blood loss anemia: Decompensated alcoholic cirrhosis with GI bleed [likely upper GI] Patient has history of varices. Acute blood loss anemia from upper GI bleed with hypotension Received 4 PRBCs since admission, 2 FFP's and 1 platelet MELD 26 Maddrey's Discriminant Function Score 35 EGD done on 10/16 showed hiatal hernia, grade 2 varices w/o stigmata of bleeding, severe portal gastropathy GI on board continue IV PPI and Octreotide gtts x 2 days Continue PO PPI BID Ceftriaxone IV antibx x 5 days for SBP prophylaxis Hgb stable at 11.7 Diet advanced as tolerated Monitor CBC (4) Thrombocytopenia: Platelet was 55 on admission Received 1 unit platelet during admission Platelet 42 Will continue to monitor platelet Avoid any NSAID (5) Transaminitis: LFT worsening with AST 1060 and ALT 255, now trending down slowly to AST 701 and ALT 294 Completed Acetylcysteine protocol as per GI MRCP showed hepatic and portal venous structures are patent. Interval development of mild abdominal ascites with small bilateral pleural effusions. LFT continues trending down with AST with 448 and ALT 235 Ok from GI standpoint to discharge home Check LFT in 1 week to monitor liver function (6) COPD (chronic obstructive pulmonary disease): Stable Continue home nebs (7) Hepatitis C: Status post treatment with reported SVR (8) LAYO (acute kidney injury): LAYO secondary to hemorrhagic shock. Creatinine on admission was 1.61 Creatinine 1.1 stable Monitor BMP (9) Electrolyte abnormality: K 3.4 today K and phos replaced Monitor electrolytes Advised pt to increase (10) Alcohol abuse: Last alcohol drink was last Tuesday On Alcohol protocol with Ativan No signs of alcohol withdraw or DT Counseling on alcohol cessation Consider inpatient alcohol rehab, but pt refused DVT prophylaxis SCDs for now Disposition Will discharge home today Follow up with your PCP Dr. Dailey in 1 week Follow up with your Gastro in 2 weeks Check CMP in 1 week Admission and Anticipated Discharge Date Admission Date: October 15, 2019 Subjective Pt was seen and examined Lying in bed in no distress Pt said that she feels much better Denies any chest pain, palpitation and SOB Physical Exam Physical Exam: General- No acute distress Head- atraumatic Eyes- PERRL, No nystagmus ENT- oropharynx clear Neck- supple, no JVD Lungs- No wheezing Heart- regular rhythm; no murmur Abdomen- normal bowel sounds, soft, nontender Extremities- no calf tenderness, No tremor Neuro- alert, oriented, PERRL, EOMI; no facial palsy; no dysarthria Skin- warm & dry Results & Data ([facility]) Vital Signs (Past 12 Hours) Vital Signs Temp Pulse Pulse Resp BP Pulse Ox 10/20/19 08:00 76 10/20/19 07:00 37.0 C 93 H 18 111/77 91 10/20/19 03:10 36.9 C 80 20 118/80 92 10/20/19 00:19 93 H (1) Cirrhosis of liver Ascites presence: unspecified Hepatic cirrhosis type: alcoholic cirrhosis Qualified Code(s): K70.30 - Alcoholic cirrhosis of liver without ascites
--- NOTE | 2019-10-21 08:42 | Discharge Summary ---
Date of Service September Admission HPI Per Admitting Provider CHIEF COMPLAINT: Hematemesis and melena. HISTORY OF PRESENT ILLNESS: This is a 53-year-old female with past medical history significant for alcoholic liver cirrhosis; chronic alcoholism; history of hepatitis C, treated with Harvoni for 12 weeks, last viral load in October 2016 was not detectable; history of tobacco abuse; COPD; portal hypertension; esophageal varices; history of gastritis; pancreatitis; depression with anxiety; chronic thrombocytopenia; ongoing alcoholism, she says she drinks half a pint of bourbon every day. She was in [facility] in the past. Lives with her . Ambulates okay, but lately she is having imbalance and dizziness. Last Tuesday, she started having hematemesis and also black and blood in the stools, some abdominal discomfort, and she stopped drinking since then and that is the reason she came to the ER today and her hemoglobin was found to be 7.5, prior to that in December 2018 it was 13.6. In ER she was hypotensive, systolic blood pressure in 60s and 70s, with fluid boluses it came into 80s. She is getting 1 unit of PRBC now. No active vomiting in the ER, hemoccult was positive. Creatinine is 1.6, baseline is around 0.6, and also her total bilirubin is 3.6, it was at 1.9 in December 2018, AST is 958, ALT 205, alkaline phosphatase 105. Afebrile. WBC 12.7. She states the abdominal pain is slightly better today. She says on and off she gets chest pain, but right now she does not have any chest pain. She has some dry cough. Denies any fever, chills. Has some headache. No blurred vision, no earache, no runny nose, no sore throat. Somewhat chilly, on multiple blankets. Most of the time she gave history okay, but sometimes seems to be not understanding the questions. Her INR was 2. Got IV vitamin K and started on Protonix drip in the ER and got 1.5 liters of fluids and banana bag. Admission Exam Per Admitting Provider GENERAL: The patient is alert and oriented, slightly shaky. VITAL SIGNS: Temperature 37.2, pulse 99, respiratory rate 18, blood pressure 74/42, oxygen 96% on room air. HEENT: No pallor, no icterus. Pupils equal, round, and reactive to light. NECK: No JVD, no neck masses, no carotid bruits. CARDIOVASCULAR: S1, S2 heard, regular rate and rhythm, no murmur, no gallop. RESPIRATORY SYSTEM: Normal AP diameter. No accessory muscle use. No wheezing, no crackles. ABDOMEN: Soft, bowel sounds present. Mild abdominal diffuse discomfort. No guarding. No rigidity. No distention. CENTRAL NERVOUS SYSTEM: Alert and oriented. Obeys simple commands. Moves extremities. Speech is clear. EXTREMITIES: No edema, no erythema. Principal Diagnosis (1) UGIB (upper gastrointestinal bleed): (2) Cirrhosis of liver: (3) Acute blood loss anemia: (4) Thrombocytopenia: (5) Transaminitis: (6) COPD (chronic obstructive pulmonary disease) (7) Hepatitis C: (8) LAYO (acute kidney injury): (9) Electrolyte abnormality: Discharge Exam General- No acute distress Head- atraumatic Eyes- PERRL, No nystagmus ENT- oropharynx clear Neck- supple, no JVD Lungs- No wheezing Heart- regular rhythm; no murmur Abdomen- normal bowel sounds, soft, nontender Extremities- no calf tenderness, No tremor Neuro- alert, oriented, PERRL, EOMI; no facial palsy; no dysarthria Skin- warm & dry Discharge Data Allergies Allergy/AdvReac Type Severity Reaction Status Date / Time codeine AdvReac Severe upset Verified 10/15/19 18:34 stomach Consultations 10/15/19 18:56 ED Decision to Admit Stat 10/15/19 20:39 Consult Case Management - Discharge Planning Routine Consult Gastroenterology Routine Consult Medical Doctor Nuclear Medicine Routine Procedures Performed Operation Date: 10/16/19 12:55 Actual Procedures p Esophagogastroduodenoscopy(Not Applicable) - Irphan E Gaslightwala Ordered Studies 10/15/19 20:54 US duplex portal hepatic veins Urgent 10/18/19 08:33 MR MRCP Routine ADDENDUM Review of the images shows the specific sequences for the MRCP evaluation of the biliary system and gallbladder to be nondiagnostic. Electronically signed by: Bertram Fuchs M.D. 10/18/2019 6:33 PM ADDENDUM END Study: MRI abdomen/liver. COMPARISON: 01/15/2016 HISTORY: Hepatic cirrhosis FINDINGS: Interval development of small bilateral pleural effusions. Mild perihepatic as well as perisplenic and upper abdominal ascites. Signal characteristics of the kidneys are unremarkable. The portal and hepatic venous structures appear patent. The upper abdominal bowel pattern is nonobstructive. Trace body wall anasarca. IMPRESSION: 1. Hepatic cirrhosis. 2. Hepatic and portal venous structures are patent. 3. Interval development of mild abdominal ascites with small bilateral pleural effusions. 4. Nonobstructive bowel pattern Electronically signed by: Bertram Fuchs M.D. 10/18/2019 5:34 PM Dictated: 10/18/191728 Transcribed: 10/18/191728 KUB HISTORY: Acute generalized abdominal pain with distention abd distension, pain COMPARISON: CT abdomen and pelvis 06/25/2018 FINDINGS: Air-filled loops of large and small bowel are noted with mild small bowel distention measuring up to 3.0 cm. No evidence of high-grade small bowel obstruction. Pelvic basin calcifications suggest probable phleboliths. No renal calculi. No ureteral calculi. No pneumoperitoneum or pneumatosis. Cannulated screw projects superior to the right hip. Right hip osteoarthritis. No fracture. IMPRESSION: 1. No high-grade small bowel obstruction, pneumatosis or pneumoperitoneum. 2. Air-filled loops of large and small bowel are noted with mild small bowel distention. Findings may reflect ileus versus low-grade obstruction. Follow-up recommended. ACT 112: Positive. There are findings on this exam that require communication between the performing entity and the patient following Patient Test Result Information Act ([place] Act 112) guidelines. The above report was generated using voice recognition software. It may contain grammatical, syntax or spelling errors. Electronically signed by: Abdirizak Plaza M.D. 10/17/2019 10:53 AM Dictated: 10/17/19 1050 Transcribed: 10/17/19 105 US duplex portal hepatic veins CLINICAL HISTORY: Upper GI bleed. COMPARISON STUDY: Abdomen and pelvis CT 06/25/2018. FINDINGS: The portal and hepatic veins are patent and demonstrate normal direction of flow. Cirrhotic morphology to the liver. Small amount of perihepatic ascites. IVC is partially obscured by overlying bowel gas. The hepatic artery is patent. IMPRESSION: The portal and hepatic veins are patent. ACT 112: Negative or not required by law. Electronically signed by: Jeremy Jones M.D. 10/16/2019 7:09 AM Dictated: 10/16/19 07 Transcribed: 10/16/19706 XR chest 1V portable HISTORY: GI bleed. COMPARISON: Chest 06/25/2018. FINDINGS: The lungs are clear. Cardiac silhouette is normal in size. No pleural effusions. No pneumothorax. IMPRESSION: No acute process. ACT 112: Negative or not required by law. Electronically signed by: Jeremy Jones M.D. 10/15/2019 6:04 PM Dictated: 10/15/191802 Transcribed: 10/15/191802 Hospital Course (1) UGIB (upper gastrointestinal bleed): (2) Cirrhosis of liver: (3) Acute blood loss anemia: Decompensated alcoholic cirrhosis with GI bleed [likely upper GI] Patient has history of varices. Acute blood loss anemia from upper GI bleed with hypotension Received 4 PRBCs since admission, 2 FFP's and 1 platelet MELD 26 Maddrey's Discriminant Function Score 35 EGD done on 10/16 showed hiatal hernia, grade 2 varices w/o stigmata of bleeding, severe portal gastropathy GI on board continue IV PPI and Octreotide gtts x 2 days Continue PO PPI BID Ceftriaxone IV antibx x 5 days for SBP prophylaxis Hgb stable at 11.7 Diet advanced as tolerated Monitor CBC (4) Thrombocytopenia: Platelet was 55 on admission Received 1 unit platelet during admission Platelet 42 Will continue to monitor platelet Avoid any NSAID (5) Transaminitis: LFT worsening with AST 1060 and ALT 255, now trending down slowly to AST 701 and ALT 294 Completed Acetylcysteine protocol as per GI MRCP showed hepatic and portal venous structures are patent. Interval development of mild abdominal ascites with small bilateral pleural effusions. LFT continues trending down with AST with 448 and ALT 235 Ok from GI standpoint to discharge home Check LFT in 1 week to monitor liver function (6) COPD (chronic obstructive pulmonary disease): Stable Continue home nebs (7) Hepatitis C: Status post treatment with reported SVR (8) LAYO (acute kidney injury): LAYO secondary to hemorrhagic shock. Creatinine on admission was 1.61 Creatinine 1.1 stable Monitor BMP (9) Electrolyte abnormality: K 3.4 today K and phos replaced Monitor electrolytes Advised pt to increase (10) Alcohol abuse: Last alcohol drink was last Tuesday On Alcohol protocol with Ativan No signs of alcohol withdraw or DT Counseling on alcohol cessation Consider inpatient alcohol rehab, but pt refused DVT prophylaxis SCDs for now Disposition Will discharge home today Follow up with your PCP Dr. Dailey in 1 week Follow up with your Gastro in 2 weeks Check CMP in 1 week Total Time Total Time Spent Total Time Spent (In Minutes): 35 minutes Total Time Includes: Examination of the Patient, Discharge Planning, Medication Reconciliation, Communication With Other Providers and Other Discharge Plan Discharge Items Patient Disposition: Home - Self-Care Reason For Visit: HEMATEMESIS,MELENA Discharge Diagnosis: (1) UGIB (upper gastrointestinal bleed): (2) Cirrhosis of liver: (3) Acute blood loss anemia: (4) Thrombocytopenia: (5) Transaminitis: (6) COPD (chronic obstructive pulmonary disease) (7) Hepatitis C: (8) LAYO (acute kidney injury): (9) Electrolyte abnormality: Activity: Resume your previous activity Non-emergency contact: Primary Care Provider Call non-emergency contact if: you have any medication questions Follow-up/Referrals: Sumi Dailey, [Primary Care Provider] - Diet: Regular Addtl Attending Provider Instructions: Follow up with your primary care provider Dr. Barrera in 1 week Follow with your gastroenterology in 2 weeks Check LFT in 1 week to monitor your liver function Increase potassium supplement in your diet Counseling on alcohol cessation (Seek help from alcohol rehab) Counseling on smoking cessation Avoid and tylenol since your liver enzymes elevate Avoid any NSAID (such as motrin, aleve, Ibuprofen, Naproxen, advil,...) due to risk of bleeding Pending Studies at Discharge: No Stand-Alone Forms: [employer], Smoking Cessation Medications and DC Order Prescriptions: New pantoprazole 40 mg Tablet,Delayed Release (Dr/Ec) 40 mg PO BID 30 Days Qty: 60 RF: 0 Continued albuterol sulfate 90 mcg/actuation Hfa Aerosol Inhaler 2 puff INHALATION Q6H PRN (Reason: Shortness Of Breath Or Wheezing) RF: 0 Incruse Ellipta 62.5 mcg/actuation Blister With Device 1 inh INHALATION DAILY RF: 0 Breo Ellipta 100-25 mcg/dose Blister With Device 1 inh INHALATION DAILY RF: 0 thiamine HCl (vitamin B1) [Vitamin B-1] 100 mg Tablet 100 mg PO QAM Qty: 30 RF: 0 folic acid 1 mg Tablet 1 mg PO QAM Qty: 30 RF: 0 hydroxyzine HCl 10 mg tablet 10 mg PO Q12H PRN (Reason: anxiety) Qty: 30 RF: 0 Discharge Orders: Discharge Order (Routine); Ordered 10/20/19 Ordered By: Ramandeep Meza Admission Data Admit Date/Time: 10/15/19 20:00 Attending Provider: Ramandeep Meza Admit Provider: Lei Romero Primary Care Provider: Sumi Dailey Other Providers: Patria Holm I. ; Lei Romero ; Dean Cortez ; Siva Kwon Other Interventions: Discharge Summary Assessment (RN) Last Done: 10/20/19 11:06 DC Date/Time DO NOT enter until pt leaves facility: 10/20/19 11:29
== END 2019-10-20 11:29 | disposition home or self-care (01) | DRG 391 ==
LOC: ED 16:53 → SUATTDRO 20:00 → 1E 20:00 → 2W 10-17 19:21

== ENCOUNTER 2019-10-30 11:07 | Inpatient (IN) ==
[2019-10-30 11:59] LABS: Hematocrit (blood only) 34.2 % (37-47); Hemoglobin 11.6 g/dL (12.0-16.0); Mean Corpuscular Hemoglobin 32.6 pg (25-34); Mean Corpuscular Hgb Conc 33.9 g/dL (32-36); Mean Corpuscular Volume 96.1 fL (80-100); RDW Coefficient of Variation 17.6 % (11.5-14.5); RDW Standard Deviation 61.9 fL (36.4-46.3); Red Blood Count 3.56 M/uL (4.2-5.4); White Blood Count 8.38 K/uL (4.8-10.8)
--- NOTE | 2019-10-30 11:59 | Emergency Department Note ---
History of Present Illness General Chief complaint: Referred by Doctor Stated complaint: POTAC LOW History of Present Illness Maximum Pain Intensity: 10 This patient is a pleasant 53-year-old female with a history of cirrhosis of the presents to the emergency department with possible low potassium. The patient was recently discharged from the hospital for a GI bleed. The patient followed up with her primary care physician last week. She had an echocardiogram and an ultrasound of her lower extremities bilaterally. She also had blood work last week. She was told that her potassium was low, which is why she was sent here for evaluation today. The patient also reports shortness of breath and abdominal bloating. She reports swelling in her lower extremities. She is not actively consuming alcohol. She denies any fever or chills. Bowel movements have been minimal. Home Medications Home Medications Medication Instructions Recorded Confirmed Type Breo Ellipta 1 inh INHALATION DAILY 01/08/19 10/30/19 History Incruse Ellipta 1 inh INHALATION DAILY 01/08/19 10/30/19 History albuterol sulfate 2 puff INHALATION Q6H PRN 01/08/19 10/30/19 History folic acid 1 mg PO QAM #30 tab 01/13/19 10/30/19 Rx hydroxyzine HCl 10 mg PO Q12H PRN #30 tab 01/13/19 10/30/19 Rx thiamine HCl (vitamin B1) [Vitamin 100 mg PO QAM #30 tab 01/13/19 10/30/19 Rx B-1] furosemide 20 mg PO DIRECTED PRN 10/30/19 10/30/19 History omeprazole 40 mg PO BID 10/30/19 10/30/19 History potassium chloride 10 meq PO BID 10/30/19 10/30/19 History spironolactone 25 mg PO DAILY 10/30/19 10/30/19 History Allergies Allergy/AdvReac Type Severity Reaction Status Date / Time codeine AdvReac Severe upset Verified 10/15/19 18:34 stomach Past Med/Surg History Medical History Acute blood loss anemia LAYO (acute kidney injury) Alcohol abuse (Chronic) Alcohol abuse (Acute) Cirrhosis of liver (Chronic 11/21/12) COPD (chronic obstructive pulmonary disease) Hepatitis C Hepatitis, alcoholic (Chronic 11/21/12) Portal hypertension Thrombocytopenia Transaminitis UGIB (upper gastrointestinal bleed) Surgical History History of endoscopy Family History Other Family history non-contributory Social History Preferred Language: Ukrainian Communication Ability: Effective 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 Beliefs That Will Affect Care: None Current Living Situation: Spouse Feels Safe at Home: Yes Smoking Status: Former smoker Tobacco Type: cigarettes ; Cigarettes Per Day: 1/2 ppd ; Hx Alcohol Use: Yes Alcohol type: hard liquor Hx Substance Use: No Review of Systems A total of 10 systems reviewed and were otherwise negative Physical Exam Vital Signs Vital Signs - 24 hr 10/30/19 11:10 10/30/19 11:41 10/30/19 11:45 Temperature 36.8 C Temperature Source Oral Pulse Rate 111 H 91 H 101 H Pulse Rate from SpO2 Sensor 93 H 99 H Respiratory Rate 20 20 20 Respiratory Effort / Characteristics Non-Labored Spontaneous Respiratory Depth Normal Blood Pressure 124/67 121/57 L Blood Pressure Mean 86 90 Pulse Oximetry 96 94 Oxygen Delivery Method Room Air Sepsis Recent Fever Within 48 Hours No Sepsis Action Taken by Nursing No Action Required 10/30/19 11:50 10/30/19 12:00 10/30/19 12:10 Temperature Temperature Source Pulse Rate 99 H 94 H 94 H Pulse Rate from SpO2 Sensor 98 H 94 H 95 H Respiratory Rate 20 19 18 Respiratory Effort / Characteristics Respiratory Depth Blood Pressure 113/76 Blood Pressure Mean 86 Pulse Oximetry 95 94 94 Oxygen Delivery Method Sepsis Recent Fever Within 48 Hours Sepsis Action Taken by Nursing 10/30/19 12:20 10/30/19 12:30 10/30/19 12:40 Temperature Temperature Source Pulse Rate 102 H 94 H 93 H Pulse Rate from SpO2 Sensor 93 H 94 H 94 H Respiratory Rate 21 18 18 Respiratory Effort / Characteristics Respiratory Depth Blood Pressure 116/73 Blood Pressure Mean 77 Pulse Oximetry 94 92 93 Oxygen Delivery Method Sepsis Recent Fever Within 48 Hours Sepsis Action Taken by Nursing 10/30/19 12:50 10/30/19 13:00 10/30/19 13:10 Temperature Temperature Source Pulse Rate 93 H 89 90 Pulse Rate from SpO2 Sensor 93 H Respiratory Rate 20 17 17 Respiratory Effort / Characteristics Respiratory Depth Blood Pressure 113/64 Blood Pressure Mean 91 Pulse Oximetry 93 Oxygen Delivery Method Sepsis Recent Fever Within 48 Hours Sepsis Action Taken by Nursing 10/30/19 13:25 10/30/19 13:30 10/30/19 13:31 Temperature Temperature Source Pulse Rate 93 H 89 90 Pulse Rate from SpO2 Sensor Respiratory Rate 12 18 15 Respiratory Effort / Characteristics Respiratory Depth Blood Pressure 115/62 Blood Pressure Mean 74 Pulse Oximetry Oxygen Delivery Method Sepsis Recent Fever Within 48 Hours Sepsis Action Taken by Nursing 10/30/19 13:40 10/30/19 13:50 10/30/19 14:00 Temperature Temperature Source Pulse Rate 85 87 87 Pulse Rate from SpO2 Sensor Respiratory Rate 20 22 18 Respiratory Effort / Characteristics Respiratory Depth Blood Pressure 112/70 Blood Pressure Mean 84 Pulse Oximetry Oxygen Delivery Method Sepsis Recent Fever Within 48 Hours Sepsis Action Taken by Nursing 10/30/19 14:10 10/30/19 14:20 Temperature Temperature Source Pulse Rate 90 85 Pulse Rate from SpO2 Sensor Respiratory Rate 24 18 Respiratory Effort / Characteristics Respiratory Depth Blood Pressure Blood Pressure Mean Pulse Oximetry Oxygen Delivery Method Sepsis Recent Fever Within 48 Hours Sepsis Action Taken by Nursing Constitutional WD/WN, vitals as above Eyes EOM intact bilaterally ENMT external ear and nose normal, oropharynx normal Neck trachea midline Respiratory normal respiratory effort, lungs clear to auscultation Cardiovascular RRR, no murmur, no edema Gastrointestinal (Abdomen) Ascites noted. Bowel sounds hypoactive. Mild tenderness to palpation in the right upper quadrant. No guarding or rebound tenderness noted. Musculoskeletal no cyanosis or clubbing, extremities motor strength 5/5 Trace pitting edema in the lower extremities bilaterally. Skin no rashes, warm and dry Questionable petechiae noted in the lower extremities bilaterally. Neurologic Alert and oriented x3. No focal motor deficits. Psychiatric Acting appropriately Course Course Patient was seen and examined Vital signs including blood pressure were reviewed medications list was verified with patient Labs were obtained, and a saline lock was established And EKG was performed and reviewed. An order was placed for continuous cardiac monitoring. The monitor shows a rate of 110 with sinus tachycardia rhythm. The case was discussed with my supervising physician. Electrolytes were ordered. The patient was reevaluated and resting comfortably. We discussed her results. She voiced understanding, and was comfortable with the disposition [facility] the patient for likely inpatient management. Consultations Consultation #1: Jeaneth CASIANO Administered Medications Potassium Phosphate 15 mmol/ (Sodium Chloride) 255 mls @ 88 mls/hr IV ONE ONE Stop: 10/30/19 16:23 Last Admin: 10/30/19 13:41 Dose: 88 mls/hr Documented by: [id number] Potassium Chloride (K Nitin / Wtr) 10 meq in 100 mls @ 100 mls/hr IV Q1H STA Stop: 10/30/19 16:08 Last Admin: 10/30/19 15:14 Dose: 100 mls/hr Documented by: [id number] Discontinued Medications Potassium Chloride (K Nitin / Wtr) 10 meq in 100 mls @ 100 mls/hr IV Q1H STEPHAN Stop: 10/30/19 14:14 Last Infusion: 10/30/19 15:13 Dose: 0 mls/hr Documented by: [id number] Admin: 10/30/19 13:51 Dose: 100 mls/hr Documented by: [id number] Infusion: 10/30/19 13:49 Dose: 100 mls/hr Documented by: [id number] Admin: 10/30/19 12:49 Dose: 100 mls/hr Documented by: [id number] Morphine Sulfate (Morphine Sulfate) 4 mg IV NOW STA Stop: 10/30/19 13:01 Last Admin: 10/30/19 13:20 Dose: 4 mg Documented by: [id number] Potassium Chloride (Klor-Con M20) 40 meq PO NOW STA Stop: 10/30/19 15:04 Last Admin: 10/30/19 15:14 Dose: 40 meq Documented by: [id number] Potassium Phosphate (Potassium Phosphate Replace) 15 mmol IV NOW STA Stop: 10/30/19 13:02 Last Admin: 10/30/19 13:42 Dose: Not Given Documented by: [id number] Medical Decision Making Medical Records Attestation: I reviewed the patient's medical records. Home Medications Current Medication List: was personally reviewed by me Laboratory Data Attestation: I reviewed the patient's lab results. Result diagrams: 10/30/19 11:45 10/30/19 11:45 Lab Results 10/30/19 10/30/19 10/30/19 Range/Units 11:45 11:45 11:45 WBC 8.38 (4.8-10.8) K/uL RBC 3.56 L (4.2-5.4) M/uL Hgb 11.6 L (12.0-16.0) g/dL Hct 34.2 L (37-47) % MCV 96.1 (80-100) fL MCH 32.6 (25-34) pg MCHC 33.9 (32-36) g/dL RDW Std Deviation 61.9 H (36.4-46.3) fL RDW Coeff of Radha 17.6 H (11.5-14.5) % Plt Count 95 L (130-400) K/uL MPV 11.6 H (7.4-10.4) fL Immature Gran % (Auto) 0.4 % Neut % (Auto) 65.7 % Lymph % (Auto) 17.9 % [place] % (Auto) 14.3 % Eos % (Auto) 1.1 % Baso % (Auto) 0.6 % Immature Gran # (Auto) 0.03 H (0.00-0.02) K/uL Neut # (Auto) 5.51 (1.4-6.5) K/uL Lymph # (Auto) 1.50 (1.2-3.4) K/uL [place] # (Auto) 1.20 H (0.11-0.59) K/uL Eos # (Auto) 0.09 (0-0.5) K/uL Baso # (Auto) 0.05 (0-0.2) K/uL PT 15.2 H (9.0-12.0) Seconds INR 1.5 H (0.9-1.1) Sodium 135 L (136-145) mmol/L Potassium 2.1 L* (3.5-5.1) mmol/L Chloride 96 L (98-107) mmol/L Carbon Dioxide 29 (21-32) mmol/L Anion Gap 10.0 (3-11) BUN 4 L (7-18) mg/dl Creatinine 1.23 H (0.6-1.2) mg/dl Est Cr Clr Drug Dosing 46.2 ml/min Est GFR ( Amer) 57.6 Est GFR (Non-Af Amer) 49.7 BUN/Creatinine Ratio 3.4 L (10-20) Glucose 149 H (70-99) mg/dl Calcium 8.0 L (8.5-10.1) mg/dl Phosphorus 1.5 L* (2.5-4.9) mg/dl Magnesium 1.5 L (1.8-2.4) mg/dl Total Bilirubin 7.4 H (0.2-1) mg/dl AST 117 H (15-37) U/L ALT 60 (12-78) U/L Alkaline Phosphatase 152 H (45-117) U/L Total Protein 7.7 (6.4-8.2) gm/dl Albumin 2.6 L (3.4-5.0) gm/dl Globulin 5.1 H (2.5-4.0) gm/dl Albumin/Globulin Ratio 0.5 L (0.9-2) Imaging Data Attestation: I personally reviewed and interpreted this imaging study as follows: Radiologist's Impression: Chest x-ray IMPRESSION: Small parenchymal infiltrate and/or atelectatic change right base. ACT 112: Negative or not required by law. The above report was generated using voice recognition software. It may contain grammatical, syntax or spelling errors. Electronically signed by: Bertram Fuchs M.D. 10/30/2019 12:20 PM Dictated: 10/30/19 121 Transcribed: 10/30/19 121 ECG Data Attestation: I personally reviewed and interpreted this ECG as follows: Indication: + SOB/dyspnea Rate (beats per minute): 95 Rhythm: + sinus rhythm Additional Comments: T wave inversions noted in V1 and V2. No significant change when compared to prior EKG of 10/15/2019. Blood Pressure Blood Pressure Findings: Normal blood pressure MDM Narrative Differential diagnosis: Poor p.o. intake, acute liver failure, acute renal failure, dehydration, failure to thrive, malnutrition, fluid overload, among others This patient is a 53-year-old female who presents to the emergency department Per request of her supervising physician for low potassium. The patient has a history of alcoholism, cirrhosis and abnormal electrolytes. On exam, she appeared slightly dehydrated. Ascites noted. The patient's labs are consistent with hypokalemia and hypo phosphatemia. Magnesium was also noted to be low. Due to the significant abnormalities in her blood work, I do not feel comfortable sending the patient home. Hospitalist consultation was felt to be warranted. Impression & Plan Acute hypokalemia Discharge Plan Visit Data Chief Complaint: Referred by Doctor Stated Complaint: POTAC LOW ED Provider: Vincent Brewer ED Midlevel Provider: Elizabeth Mcnally Discharge Problem: Acute hypokalemia Patient Disposition: Being Evaluated by Hospitalist Condition: Fair Forms Stand Alone Forms: My [facility], Important Visit Information Prescriptions Prescriptions: No Action albuterol sulfate 90 mcg/actuation Hfa Aerosol Inhaler 2 puff INHALATION Q6H PRN (Reason: Shortness Of Breath Or Wheezing) RF: 0 Incruse Ellipta 62.5 mcg/actuation Blister With Device 1 inh INHALATION DAILY RF: 0 Breo Ellipta 100-25 mcg/dose Blister With Device 1 inh INHALATION DAILY RF: 0 thiamine HCl (vitamin B1) [Vitamin B-1] 100 mg Tablet 100 mg PO QAM Qty: 30 RF: 0 folic acid 1 mg Tablet 1 mg PO QAM Qty: 30 RF: 0 hydroxyzine HCl 10 mg tablet 10 mg PO Q12H PRN (Reason: anxiety) Qty: 30 RF: 0 potassium chloride 10 mEq capsule, extended release 10 meq PO BID RF: 0 omeprazole 40 mg capsule,delayed release(DR/EC) 40 mg PO BID RF: 0 spironolactone 25 mg tablet 25 mg PO DAILY RF: 0 furosemide 20 mg tablet 20 mg PO DIRECTED PRN (Reason: swellling) RF: 0 Referrals Referrals: Sumi Dailey DO [Primary Care Provider] -
[2019-10-30 12:03] LABS: Basophils # (auto) 0.05 K/uL (0-0.2); Basophils % (auto) 0.6 %; Eosinophils # (auto) 0.09 K/uL (0-0.5); Eosinophils % (auto) 1.1 %; Immature Granulocytes # (auto) 0.03 K/uL (0.00-0.02); Immature Granulocytes % (auto) 0.4 %; Lymphocytes % (auto) 17.9 %; Mean Platelet Volume 11.6 fL (7.4-10.4); Monocytes % (auto) 14.3 %; Neutrophils # (auto) 5.51 K/uL (1.4-6.5); Neutrophils % (auto) 65.7 %; Platelet Count 95 K/uL (130-400)
[2019-10-30 12:09] LABS: INR 1.5 (0.9-1.1); Prothrombin Time 15.2 Seconds (9.0-12.0)
[2019-10-30 12:12] LABS: Albumin Level 2.6 gm/dl (3.4-5.0); BUN Creatinine Ratio 3.4 (10-20); Creatinine Clr Calc Pharmacy 46.2 ml/min; Est GFR (African American) 57.6; Est GFR (Non-African American) 49.7; Magnesium 1.5 mg/dl (1.8-2.4); Potassium 2.1 mmol/L (3.5-5.1)
[2019-10-30 12:21] LABS: Albumin Globulin Ratio 0.5 (0.9-2); Bilirubin,Total 7.4 mg/dl (0.2-1); Globulin 5.1 gm/dl (2.5-4.0); Phosphorus 1.5 mg/dl (2.5-4.9); Total Protein 7.7 gm/dl (6.4-8.2)
--- NOTE | 2019-10-30 12:21 | XRay Report ---
XR chest 1V portable CLINICAL HISTORY: SOB dyspnea COMPARISON STUDY: 04/14/2020 FINDINGS: Small parenchymal infiltrate/atelectatic change right base. Lungs otherwise appear clear. D iaphragms are smooth. Slight elevation right hemidiaphragm. No significant cardiac enlargement. IMPRESSION: Small parenchymal infiltrate and/or atelectatic change right base. ACT 112: Negative or not required by law. The above report was generated using voice recognition software. It may contain grammatical, syntax or spelling errors. Electronically signed by: Bertarm Fuchs M.D. 10/30/2019 12:20 PM
[2019-10-30] MEDS: POTASSIUM CHLORIDE / WTR 10 MEQ/100 ML PLCT IV SCH ×2 (12:49→13:51)
[2019-10-30] MEDS ORDERED: MoRPHine SULFATE 4 MG/ML 1 ML CARP\\VIAL IV STA (13:00)
[2019-10-30] MEDS ORDERED: POTASSIUM PHOS 3 MMOL/1 ML INFUSION IV STA (13:01)
[2019-10-30] MEDS ORDERED: POTASSIUM PHOSPHATE 15 MMOL in SODIUM CHLORIDE 0.9% 250 ML IV ONE (13:30)
--- NOTE | 2019-10-30 14:19 | Gastrointestinal Consultation ---
Date of Consultation October 30, 2019 Assessment & Plan (1) Cirrhosis of liver: 53 y/o female w hx of HCV (treated w Harvayden, SVR attained), ETOH cirrhosis, MELD 26 w Grade II esophageal varices, portal HTN admitted through the ED for weakness, hypokalemia, worsening abdominal ascites. She was recently started on Lasix by PCP about one week ago and was to start Aldactone after GI clinic appt yesterday. MELD labs showed severe hypokalemia and she was directed to the ED - Appreciate primary service management of chronic comorbidities - Ongoing electrolyte correction and management - New Ascites - Hepatic duplex at [facility] today negative - ABD US to ensure safe pocket to drain - Tentative plan for diagnostic and therapeutic paracentesis once medically stable if INR and PLT allow - Albumin 25% 25G before and after - Send cell count, culture, cytology, albumin, protein - Lasix 20 mg daily - Aldactone 50 mg daily - Low sodium diet, less than 2G daily - Strict alcohol cessation - Less than 2G of Tylenol containing products - HCC screen February 2020 - No NSAIDs - EGD 2020, Colonoscopy 2026 - Transplant evaluation pending sobriety requirement, last ETOH use was 10/16/2019 Thank you for allowing us to participate in the care of this patient. Please call with any acute changes, questions or concerns. Please see addendum below with additional recommendation from my supervising physician. Present on Admission?: Yes (2) Hypokalemia: Present on Admission?: Yes Supervising Physician Co-Signing Physician Notes I performed a history and physical examination of the patient today, including specifically on physical exam - soft abdomen. I have discussed the patient's management with the advanced practitioner. Please refer to the nurse practitioner's note for the documented findings and plan of care. Paracentesis to r/o SBP Correct Potassium History of Present Illness Reason for Consultation: abnormal labs, ascites Requesting Physician: Denia Attending Physician: Denia History of Present Illness 53 y/o female w hx of HCV (treated w Harvoni, SVR attained), ETOH cirrhosis w Grade II esophageal varices, portal HTN, continued ETOH use who initially presented to [facility] in September w/ dark bloody emesis/stools. She was noted to be anemic, hypotensive on presentation. Blood ct improved after 4U PRBC, 2U FFP, 1U Plt. Elevated LFTs ? related to ETOH hepatitis vs rhabdo (increased CK) but improved w N-acetylcystine. She underwent EGD 10/16 showed hiatal hernia, grade 2 varices w/o stigmata of bleeding, severe portal gastropathy. Suspects she was bleeding from portal gastropathy. Since discharge has remained alcohol and drug free. Has had lower extremity swelling and abdominal swelling. She was started on Lasix by PCP last week. Was seen in GI clinic yesterday w/ hepatic duplex, ABD US and plan for diagnostic/therapeutic paracentesis and was asked to start aldactone in addition to lasix and to get labs. Labs obtained and showed severe hypokalemia - was referred to the ED. GI asked to evaluate as she is to be admitted for electrolyte abnormality, abd distention etc. Pt was seen and evaluated. She appears weaker than yesterday evaluation. She appears SOB w/ conversation. Reports that her abdomen is more distended than yesterday. Some worsening erythema and edema to her lower extremities as well. Denies nausea/vomiting prior coffee grond emesis/hematemesis. Is using miralax daily. Stools are small volume, every other day. Brown stools. No black or bloody stools. No weight gain, actually loosing well. No fever, chills, CP Diagnosis: HCV/ETOH last ETOH use was October 16 2019 Decompensations: Varices: grade 2 Portal HTN: severe Ascites/Edema: new, started Lasix 20 mg last week, Aldactone yesterday HE: none Screenings: MELD: 26 Maddrey: 35 HCC: February Varices: 2020 Immunizations: unknown EUS 2012: fatty liver, gallbladder wall 4mm, ? Alvarado's esophagus, Grade I esophageal varices EGD/Colonoscopy 2017: Grade I varices, portal HTN; diverticulosis, int hemorrhoids. EGD 2019: showed hiatal hernia, grade 2 varices w/o stigmata of bleeding, severe portal gastropathy MRCP 2020: non diagnostic for biliary obstruction LE duplex 2020: Patent right lower extremity venous system. No evidence of acute deep venous thrombosis of the right lower extremity Obstructive series 2020: Right pleural effusion.Mild patchy bibasilar airspace opacities. This may represent atelectasis or pneumonia. Nonobstructive bowel gas pattern ABD US 2020: Moderate ascites Hepatic Duplex 2020: patent vasculature, enlarged portal vein size suggestive of portal hypertension, ascites visualized around the liver and spleen. Allergies Allergy/AdvReac Type Severity Reaction Status Date / Time codeine AdvReac Severe upset Verified 10/15/19 18:34 stomach Home Medications Home Medications Medication Instructions Recorded Confirmed Type Breo Ellipta 1 inh INHALATION DAILY 01/08/19 10/30/19 History Incruse Ellipta 1 inh INHALATION DAILY 01/08/19 10/30/19 History albuterol sulfate 2 puff INHALATION Q6H PRN 01/08/19 10/30/19 History folic acid 1 mg PO QAM #30 tab 01/13/19 10/30/19 Rx hydroxyzine HCl 10 mg PO Q12H PRN #30 tab 01/13/19 10/30/19 Rx thiamine HCl (vitamin B1) [Vitamin 100 mg PO QAM #30 tab 01/13/19 10/30/19 Rx B-1] furosemide 20 mg PO DIRECTED PRN 10/30/19 10/30/19 History omeprazole 40 mg PO BID 10/30/19 10/30/19 History potassium chloride 10 meq PO BID 10/30/19 10/30/19 History spironolactone 25 mg PO DAILY 10/30/19 10/30/19 History Patient History Medical History Anxiety and depression Cirrhosis of liver (Chronic 11/21/12) COPD (chronic obstructive pulmonary disease) Hepatitis C Portal hypertension Thrombocytopenia Transaminitis Surgical History (Updated 10/30/19 @ 15:54 by STEPHENIE Caal) History of total right hip replacement History of tubal ligation Family History Mother Cervical cancer Social History Preferred Language: Togolese Communication Ability: Effective Floor Molder Required: No Beliefs That Will Affect Care: None Current Living Situation: Spouse Feels Safe at Home: Yes Smoking Status: Former smoker Tobacco Type: cigarettes ; Cigarettes Per Day: 1/2 ppd ; Hx Alcohol Use: Yes Alcohol type: hard liquor Alcohol Intake Frequency Comment: Patient reports no alcohol since 10/13/2019 Hx Substance Use: No Review of Systems Constitutional: + fatigue and + anorexia; no fever and no chills Respiratory: + dyspnea (feeling like she cant take deep breath); no cough and no chest congestion Cardiovascular: no chest pain, no chest pain at rest and no radiating jaw, neck or arm pain Gastrointestinal: + abdominal pain, + bloating and + early satiety; no belching, no heartburn, no nausea, no vomiting, no coffee ground emesis, no hematemesis, no pain with swallowing, no dysphagia, no cramping, no excessive flatulence, no change in bowel habits, no change in stools, no constipation, no diarrhea/loose stools, no fecal incontinence, no constant urge to pass stools, no blood in stools, no melena and no problem reported Physical Exam Constitutional: + ill appearing (acute on chronic); no acute distress Eyes: sclerae not anicteric (+ icterus) Neck: trachea midline Respiratory: normal respiratory effort Cardiovascular: Rate/Rhythm: regular rate and regular rhythm Extremities: + edema Gastrointestinal (Abdomen): Inspection/Auscultation: + abdomen distended Percussion/Palpation: + abdomen tender, abdomen soft and + ascites; no guarding, abdomen not rigid and no abdominal mass Skin: + jaundice bilateral lower extremity edema, trace R>L w/ excoriation of right lower extremity pt reports pruritus Results & Data ([facility]) Vital Signs (Past 12 Hours) Vital Signs Temp Pulse Resp BP Pulse Ox 10/30/19 13:25 93 H 12 10/30/19 13:10 90 17 10/30/19 13:00 89 17 113/64 10/30/19 12:50 93 H 20 93 10/30/19 12:40 93 H 18 93 10/30/19 12:30 94 H 18 116/73 92 10/30/19 12:20 102 H 21 94 10/30/19 12:10 94 H 18 94 10/30/19 12:00 94 H 19 113/76 94 10/30/19 11:50 99 H 20 95 10/30/19 11:45 101 H 20 121/57 L 94 10/30/19 11:41 91 H 20 96 10/30/19 11:10 36.8 C 111 H 20 124/67 Laboratory Results 10/30/19 10/30/19 10/30/19 Range/Units 11:45 11:45 11:45 WBC 8.38 (4.8-10.8) K/uL RBC 3.56 L (4.2-5.4) M/uL Hgb 11.6 L (12.0-16.0) g/dL Hct 34.2 L (37-47) % MCV 96.1 (80-100) fL MCH 32.6 (25-34) pg MCHC 33.9 (32-36) g/dL RDW Std Deviation 61.9 H (36.4-46.3) fL RDW Coeff of Radha 17.6 H (11.5-14.5) % Plt Count 95 L (130-400) K/uL MPV 11.6 H (7.4-10.4) fL Immature Gran % (Auto) 0.4 % Neut % (Auto) 65.7 % Lymph % (Auto) 17.9 % [place] % (Auto) 14.3 % Eos % (Auto) 1.1 % Baso % (Auto) 0.6 % Immature Gran # (Auto) 0.03 H (0.00-0.02) K/uL Neut # (Auto) 5.51 (1.4-6.5) K/uL Lymph # (Auto) 1.50 (1.2-3.4) K/uL [place] # (Auto) 1.20 H (0.11-0.59) K/uL Eos # (Auto) 0.09 (0-0.5) K/uL Baso # (Auto) 0.05 (0-0.2) K/uL PT 15.2 H (9.0-12.0) Seconds INR 1.5 H (0.9-1.1) Sodium 135 L (136-145) mmol/L Potassium 2.1 L* (3.5-5.1) mmol/L Chloride 96 L (98-107) mmol/L Carbon Dioxide 29 (21-32) mmol/L Anion Gap 10.0 (3-11) BUN 4 L (7-18) mg/dl Creatinine 1.23 H (0.6-1.2) mg/dl Est Cr Clr Drug Dosing 46.2 ml/min Est GFR ( Amer) 57.6 Est GFR (Non-Af Amer) 49.7 BUN/Creatinine Ratio 3.4 L (10-20) Glucose 149 H (70-99) mg/dl Calcium 8.0 L (8.5-10.1) mg/dl Phosphorus 1.5 L* (2.5-4.9) mg/dl Magnesium 1.5 L (1.8-2.4) mg/dl Total Bilirubin 7.4 H (0.2-1) mg/dl AST 117 H (15-37) U/L ALT 60 (12-78) U/L Alkaline Phosphatase 152 H (45-117) U/L Total Protein 7.7 (6.4-8.2) gm/dl Albumin 2.6 L (3.4-5.0) gm/dl Globulin 5.1 H (2.5-4.0) gm/dl Albumin/Globulin Ratio 0.5 L (0.9-2) (1) Cirrhosis of liver Ascites presence: unspecified Hepatic cirrhosis type: alcoholic cirrhosis Qualified Code(s): K70.30 - Alcoholic cirrhosis of liver without ascites
[2019-10-30] MEDS ORDERED: POTASSIUM CHLORIDE 20 MEQ TABCR PO STA ×2 (15:03→18:38)
[2019-10-30] MEDS ORDERED: POTASSIUM CHLORIDE / WTR 10 MEQ/100 ML PLCT IV STA ×2 (15:09→16:46)
--- NOTE | 2019-10-30 15:28 | History & Physical Report ---
Date of Service October 30, 2019 Assessment & Plan (1) Ascites: (2) Alcoholic cirrhosis: -Admit to telemetry -Patient presenting by referral of outpatient GI office for evaluation of hypokalemia and ascites -History of hepatitis C s/p treatment and alcoholic cirrhosis, recent admission to [facility] for upper GI bleeding, likely secondary to portal gastropathy, EGD also showed grade 2 esophageal varices -No signs of GI bleeding today, continue PPI BID -Hgb 11.6, platelets 95K, INR 1.5 (all at recent baseline) -Outpatient hepatic duplex was negative, however did show moderate ascites -Empiric IV ceftriaxone for SBP, however low likelihood given no leukocytosis or fever -Plan for diagnostic and therapeutic paracentesis today with pre-and post albumin infusion -Hold on Lasix for now due to severe hypokalemia, continue spironolactone -Patient reports she has abstained from alcohol since 10/13/2019; does have a mild tremor on exam, check EtOH level -GI consult, case discussed with STEPHENIE Raphael (3) Hypokalemia: (4) Hypomagnesemia: (5) Hypophosphatemia: -K+ 2.1, MG +1.5, phos 1.5 -Likely multifactorial due to diuretic use, liver disease, poor p.o. intake -Replace, follow electrolytes (6) COPD (chronic obstructive pulmonary disease): -No signs of acute exacerbation -Continue home inhalers (7) Abnormal chest x-ray: -CXR showing questionable right basilar infiltrate versus atelectasis -Likely atelectasis, patient denies cough, sputum production. No leukocytosis or fever. (8) DVT prophylaxis: -SCDs due to thrombocytopenia History of Present Illness Chief Complaint: Sent by GI office for hypokalemia Primary Care Provider: Sumi Dailey DO 53 year old female who was sent to the ED by referral of outpatient GI provider for evaluation of severe hypokalemia. Patient with history of hepatitis C s/p treatment and alcoholic cirrhosis. Most recently admitted to [facility] 10/15 - for upper GI bleed. Underwent EGD showing portal gastropathy and grade II esophageal varices. On discharge, patient was started on PPI BID. Patient reports she had been doing well since discharge up until about 6 days ago when she developed abdominal bloating/swelling. She was seen by her PCP on 10/24 and placed on Lasix and Potassium. She was seen by GI yesterday and started on spironolactone. Today, patient underwent hepatic duplex that was negative however did show moderate ascites. Labs showed severe hypokalemia with K+ 2.4. Patient was referred to the ER for further evaluation. Patient reports that along with the abdominal distention, she has had worsening shortness of breath. She reports a feeling of fullness and has had a very poor appetite. She denies chest pain and palpitations. No lightheadedness, dizziness, diaphoresis, syncopal events. Her abdomen is very tender however she denies nausea, vomiting, diarrhea. Reports a low-grade fever yesterday. No urinary symptoms. In the ED, patient is found to have several electrolyte abnormalities including K+ 2.1, phosphorus 1.5, magnesium 1.5. Patient received IV morphine, and IV potassium and IV phosphorus supplementation. Allergies Allergy/AdvReac Type Severity Reaction Status Date / Time codeine AdvReac Severe upset Verified 10/15/19 18:34 stomach Home Medications Home Medications Medication Instructions Recorded Confirmed Type Breo Ellipta 1 inh INHALATION DAILY 01/08/19 10/30/19 History Incruse Ellipta 1 inh INHALATION DAILY 01/08/19 10/30/19 History albuterol sulfate 2 puff INHALATION Q6H PRN 01/08/19 10/30/19 History folic acid 1 mg PO QAM #30 tab 01/13/19 10/30/19 Rx hydroxyzine HCl 10 mg PO Q12H PRN #30 tab 01/13/19 10/30/19 Rx thiamine HCl (vitamin B1) [Vitamin 100 mg PO QAM #30 tab 01/13/19 10/30/19 Rx B-1] furosemide 20 mg PO DIRECTED PRN 10/30/19 10/30/19 History omeprazole 40 mg PO BID 10/30/19 10/30/19 History potassium chloride 10 meq PO BID 10/30/19 10/30/19 History spironolactone 25 mg PO DAILY 10/30/19 10/30/19 History Past Med/Surg History Medical History Anxiety and depression Cirrhosis of liver (Chronic 11/21/12) COPD (chronic obstructive pulmonary disease) Hepatitis C Portal hypertension Thrombocytopenia Transaminitis Surgical History (Updated 10/30/19 @ 15:54 by STEPHENIE Caal) History of total right hip replacement History of tubal ligation Family History Mother Cervical cancer Social History Preferred Language: Danish Communication Ability: Effective Sole Skiver Required: No Beliefs That Will Affect Care: None Current Living Situation: Spouse Feels Safe at Home: Yes Smoking Status: Former smoker Tobacco Type: cigarettes ; Cigarettes Per Day: 1/2 ppd ; Hx Alcohol Use: Yes Alcohol type: hard liquor Alcohol Intake Frequency Comment: Patient reports no alcohol since 10/13/2019 Hx Substance Use: No Review of Systems Review of Systems: ROS per HPI, all other systems reviewed and negative Physical Exam Constitutional: WD/WN, vitals as above Eyes: PERRL; no conjunctival abnormality and sclerae not anicteric (Sclera mildly icteric) ENMT: external ear and nose normal, oropharynx normal Respiratory: normal respiratory effort, lungs clear to auscultation Cardiovascular: Rate/Rhythm: regular rate and regular rhythm Vessels: normal peripheral pulses Extremities: + edema (+1 edema BLE) Gastrointestinal (Abdomen): Inspection/Auscultation: + abdomen distended and normal bowel sounds Percussion/Palpation: + abdomen tender (Diffusely tender to palpation), + ascites and + abdomen firm; no hepatosplenomegaly Musculoskeletal: no cyanosis or clubbing, extremities motor strength 5/5 Skin: no rashes, warm and dry Neurologic: PERRL, EOMI, accommodation nl, no face palsy, no dysarthria Motor/Sensory: + tremor Psychiatric: A+Ox3, euthymic affect Results & Data Vital Signs (Past 12 Hours) Vital Signs Temp Pulse Resp BP Pulse Ox 10/30/19 14:20 85 18 10/30/19 14:10 90 24 10/30/19 14:00 87 18 112/70 10/30/19 13:50 87 22 10/30/19 13:40 85 20 10/30/19 13:31 90 15 115/62 10/30/19 13:30 89 18 10/30/19 13:25 93 H 12 10/30/19 13:10 90 17 03/10/20 13:00 89 17 113/64 10/30/19 12:50 93 H 20 93 10/30/19 12:40 93 H 18 93 10/30/19 12:30 94 H 18 116/73 92 10/30/19 12:20 102 H 21 94 10/30/19 12:10 94 H 18 94 10/30/19 12:00 94 H 19 113/76 94 10/30/19 11:50 99 H 20 95 10/30/19 11:45 101 H 20 121/57 L 94 10/30/19 11:41 91 H 20 96 10/30/19 11:10 36.8 C 111 H 20 124/67 Laboratory Results Short CBC 10/30/19 Range/Units 11:45 WBC 8.38 (4.8-10.8) K/uL Hgb 11.6 L (12.0-16.0) g/dL Hct 34.2 L (37-47) % Plt Count 95 L (130-400) K/uL BMP 10/30/19 11:45 Sodium 135 L Potassium 2.1 L* Chloride 96 L Carbon Dioxide 29 BUN 4 L Creatinine 1.23 H Glucose 149 H Calcium 8.0 L Liver Function 10/30/19 Range/Units 11:45 Total Bilirubin 7.4 H (0.2-1) mg/dl AST 117 H (15-37) U/L ALT 60 (12-78) U/L Alkaline Phosphatase 152 H (45-117) U/L Albumin 2.6 L (3.4-5.0) gm/dl Diagnostic Findings CXR IMPRESSION: Small parenchymal infiltrate and/or atelectatic change right base. Code Status & VTE Plan Code Status Patient is a full code as per my discussion with her. VTE Prophylaxis Plan VTE Prophylaxis will be ordered: Yes Supervising Physician Co-Signing Physician Notes Attending addendum Patient was seen and examined in emergency room She was sent in from GI clinic with low potassium and increasing ascites She complained abdominal pain and discomfort and feeling of cold On examination Mild to moderate distress at rest secondary to abdominal discomfort and pain, feels cold Noted to be tachycardic with a heart rate of 101/min and blood pressure low at 95/68 Chest-clear to auscultate bilaterally Heart-S1-S2, regular Abdomen-distended, moderate to severe ascites, tender to palpate. Bowel sounds decreased Extremities-1+ edema bilaterally SPINNER CAP FRAME-alert, awake and oriented x3. Generally weak Admission labs and imaging studies reviewed Has significant ascites from alcoholic cirrhosis and to rule out SBP Has significant electrolyte imbalance with hypokalemia, hypomagnesemia and hypophosphatemia Will replace electrolytes before paracentesis this afternoon GI has been consulted Agree with assessment plan as outlined above by Jeaneth Blackwell
[2019-10-30] MEDS ORDERED: ACETAMINOPHEN 325 MG TAB PO PRN (17:10)
[2019-10-30] MEDS: ALBUMIN 25% 50 ML IV SCH ×2 (17:23→17:39)
[2019-10-30] MEDS: MAGNESIUM SULFATE / D5W 1 GM/100 ML BAG IV SCH ×2 (17:23→18:20)
[2019-10-30] MEDS ORDERED: cefTRIAXone SODIUM 2,000 MG/70 ML BAG IV SCH (17:30)
[2019-10-30 18:20] LABS: BUN Creatinine Ratio 3.7 (10-20); Calcium 7.4 mg/dl (8.5-10.1); Creatinine Clr Calc Pharmacy 68.1 ml/min; Est GFR (Non-African American) 77.7; Magnesium 1.3 mg/dl (1.8-2.4); Phosphorus 3.2 mg/dl (2.5-4.9); Potassium 2.8 mmol/L (3.5-5.1)
[2019-10-30] MEDS ORDERED: Nursing to Pharmacy Communication ONE (18:28)
[2019-10-30] MEDS: MoRPHine SULFATE 4 MG/ML 1 ML CARP\\VIAL IV PRN (18:29)
[2019-10-30] MEDS: PANTOprazole 40 MG TAB PO SCH (20:12)
[2019-10-31] MEDS: MoRPHine SULFATE 4 MG/ML 1 ML CARP\\VIAL IV PRN ×3 (00:04→14:03)
[2019-10-31 01:05] LABS: BUN Creatinine Ratio 3.6 (10-20); Calcium 7.2 mg/dl (8.5-10.1); Creatinine Clr Calc Pharmacy 71.4 ml/min; Est GFR (African American) 95.4; Est GFR (Non-African American) 82.3; Magnesium 1.8 mg/dl (1.8-2.4); Potassium 3.2 mmol/L (3.5-5.1)
[2019-10-31] MEDS ORDERED: ALBUTEROL HFA 8 GM INHALER INH PRN (04:33)
[2019-10-31] MEDS ORDERED: ALBUT/IPRATROP 3MG/0.5MG NEB 3 ML VIAL NEB PRN (04:33)
[2019-10-31] MEDS ORDERED: ALBUMIN 25% 50 ML IV SCH ×2 (06:00)
[2019-10-31 06:48] LABS: Hematocrit (blood only) 30.2 % (37-47); Mean Corpuscular Hemoglobin 32.2 pg (25-34); Mean Corpuscular Hgb Conc 33.1 g/dL (32-36); Mean Corpuscular Volume 97.1 fL (80-100); RDW Coefficient of Variation 17.8 % (11.5-14.5); RDW Standard Deviation 62.4 fL (36.4-46.3); Red Blood Count 3.11 M/uL (4.2-5.4); White Blood Count 6.39 K/uL (4.8-10.8)
[2019-10-31 07:04] LABS: Mean Platelet Volume 11.6 fL (7.4-10.4); Platelet Count 72 K/uL (130-400)
[2019-10-31 07:14] LABS: BUN Creatinine Ratio 3.1 (10-20); Calcium 7.4 mg/dl (8.5-10.1); Creatinine Clr Calc Pharmacy 68.9 ml/min; Est GFR (African American) 91.3; Est GFR (Non-African American) 78.8; Magnesium 1.8 mg/dl (1.8-2.4); Phosphorus 2.5 mg/dl (2.5-4.9); Potassium 3.5 mmol/L (3.5-5.1)
[2019-10-31] MEDS ORDERED: SPIRONOLACTONE 25 MG TAB PO SCH (09:00)
[2019-10-31] MEDS: ALBUMIN 25% 50 ML IV SCH ×3 (09:15→14:37)
[2019-10-31] MEDS: FOLIC ACID 1 MG TAB PO SCH (09:17)
[2019-10-31] MEDS: THIAMINE HCL 100 MG TAB PO SCH (09:17)
[2019-10-31] MEDS: UMECLIDINIUM BROMIDE 62.5MCG/BLISTER 7 PUFFS/INHALER INH SCH (09:18)
[2019-10-31] MEDS: PANTOprazole 40 MG TAB PO SCH ×2 (09:18→21:12)
[2019-10-31] MEDS: FLUTICASONE/VILANTEROL 100/25MCG 14 PUFFS/INHALER INH SCH (09:18)
--- NOTE | 2019-10-31 09:37 | Gastroenterology Progress Note ---
Date of Service October 31, 2019 Assessment & Plan (1) Cirrhosis of liver: 53 y/o female w hx of HCV (treated w Harvoni, SVR attained), ETOH cirrhosis, MELD 26 w Grade II esophageal varices, portal HTN admitted yesterday for weakness, hypokalemia, worsening abdominal ascites. [facility] hepatic duplex showed enlarged portal vein suggestive of portal HTN, ascites accumulation. Electrolytes now better corrected. She is awaiting US guided paracentesis today. - US paracentesis today w fluid analysis: Cell ct, protein, albumin, LDH, glucose, cytology. Albumin repletion ordered - SBP prophylaxis antibx (Ceftriaxone IV) started. Will DC if no signs of SBP - Upon DC needs to be on diuretics: Aldactone 100mg daily. 2g Na diet - Strict ETOH cessation. - F/U GI clinic 11/26/2019 for continued management of cirrhosis (diuretic titration, HCC screening [id number], keep endoscopic screenings up to date). (2) Hypokalemia: Admission and Anticipated Discharge Date Admission Date: October 30, 2019 Supervising Physician Co-Signing Physician Notes I performed a history and physical examination of the patient today, including specifically on physical exam - soft abdomen. I have discussed the patient's management with the advanced practitioner. Please refer to the nurse practitioner's note for the documented findings and plan of care. Tap with no SBP, can stop IV ABx. Potassium is now corrected. She should be discharged on Aldactone 100 mg only and repeat BMP in one week as OP and based on potassium level will decide about adding Lasix. Recall GI if needed. Subjective Pt reports feeling "better". Still having symptoms of abdominal discomfort, denies CP, SOB, n/v. Last BM liquidy before admission. Review of Systems Review of Systems: All systems reviewed & are unremarkable except as noted in HPI & below Physical Exam Constitutional: WD/WN, vitals as above well groomed, cooperative and comfortable Eyes: PERRL, conjunctivae normal, anicteric sclerae ENMT: external ear and nose normal, oropharynx normal Respiratory: normal respiratory effort, lungs clear to auscultation Cardiovascular: RRR, no murmur, no edema Gastrointestinal (Abdomen): Inspection/Auscultation: + abdomen distended and + hypoactive bowel sounds Percussion/Palpation: abdomen nontender Skin: no rashes, warm and dry no jaundice Neurologic: Motor/Sensory: no asterixis Psychiatric: A+Ox3, euthymic affect Lymphatic: no lymphedema Results & Data ([facility]) Vital Signs (Past 12 Hours) Vital Signs Temp Pulse Pulse Resp BP Pulse Ox 10/31/19 07:35 36.5 C 96 H 21 117/76 94 10/31/19 04:51 88 22 96 10/31/19 04:00 36.8 C 86 22 111/62 92 10/31/19 03:58 80 L 10/30/19 23:22 36.8 C 98 H 22 92/61 L 93 10/30/19 23:20 81 L 10/30/19 21:45 91 H (1) Cirrhosis of liver Ascites presence: unspecified Hepatic cirrhosis type: alcoholic cirrhosis Qualified Code(s): K70.30 - Alcoholic cirrhosis of liver without ascites
--- NOTE | 2019-10-31 12:48 | XRay Report ---
[facility] HISTORY: Acute generalized abdominal pain with distention abdominal distension (ascites vs bowel dis tension) COMPARISON: [facility] 10/17/2019, CT abdomen and pelvis 06/25/2018 FINDINGS: The bowel gas pattern is non-obstructive. Mild gaseous distention of the large bowel. Ill-d efined opacity of the central lower pelvis may correlate with distended urinary bladder versus ascite s. Scattered pelvic basin calcifications are suggestive of phleboliths. The liver appears enlarged. N o renal calculi. No ureteral calculi. No pneumoperitoneum or pneumatosis. Osteoarthritis of the right hip with cannulated screw of the right acetabulum. Mild convex right curvature of the mid lumbar spi ne. No fracture. IMPRESSION: Mild gaseous distention of the large bowel with nonobstructive bowel gas pattern. ACT 112: Negative or not required by law. The above report was generated using voice recognition software. It may contain grammatical, syntax o r spelling errors. Electronically signed by: Abdirizak Plaza M.D. 10/31/2019 12:47 PM
--- NOTE | 2019-10-31 14:36 | Ultrasound Report ---
US paracentesis abd w/image CLINICAL HISTORY: 53 years-old Female with ascites. Acute abdominal distention with ascites COMPARISON: [facility] 10/18/2019 PROCEDURE: The procedure was explained to the patient in the care including the benefits and possible risks/complications. The patient gave verbal understanding and written consent was obtained. A time -out was performed prior to the start of the procedure. The patient was placed on the ultrasound table in the supine position. Using ultrasound guidance, an appropriate procedure site in the left lower quadrant abdomen was marked. This area was then prepped and draped in the usual sterile fashion. Local anesthesia was achieved within 1% lidocaine. An 8-Fren ch centesis catheter was then inserted. Approximately 2.5 liters of clear, yellowish fluid was remove d and 1.0 L was sent to the lab for analysis. The catheter was removed and external pressure was held to achieve hemostasis. A sterile dressing was applied to the procedure site. The patient tolerated the procedure well without immediate complicati ons. IMPRESSION: Successful ultrasound-guided paracentesis with removal of 2.5 L ascitic fluid. 1.0 L was sent to the lab for analysis. ACT 112: Negative or not required by law. The above report was generated using voice recognition software. It may contain grammatical, syntax o r spelling errors. Electronically signed by: Abdirizak Plaza M.D. 10/31/2019 2:35 PM
[2019-10-31 14:52] LABS: Albumin Peritoneal Fluid < 0.6 g/dl; Glucose Peritoneal Fluid 106 mg/dl
[2019-10-31 15:15] LABS: LDH Peritoneal Fluid 54 U/L; Total Protein Peritoneal Fluid 0.6 g/dl
[2019-10-31 15:18] LABS: Appearance Peritoneal Fluid CLEAR; Color Peritoneal Fluid YELLOW; RBC Peritoneal Fluid (A) < 3000 /uL; WBC Peritoneal Fluid (A) 180 /ul (0-300)
[2019-10-31 15:42] LABS: Basophils, Fluid 1 %; Eosinophils, Fluid 2 %; Lymphocytes, Fluid 32 %; Mono,Macrophage,Mesothelial 60 %; Neutrophils, Fluid 5 %
--- NOTE | 2019-10-31 16:00 | Electrocardiogram Report ---
Test Reason : Blood Pressure : / mmHG Vent. Rate : 095 BPM Atrial Rate : 095 BPM P-R Int : 110 ms QRS Dur : 094 ms QT Int : 358 ms P-R-T Axes : 043 -14 040 degrees QTc Int : 449 ms Poor data quality, interpretation may be adversely affected Sinus rhythm with short CA with Premature supraventricular complexes Otherwise normal ECG When compared with ECG of 15-OCT-2019 17:31, Premature supraventricular complexes are now Present T wave inversion now evident in Anterior leads Confirmed by Angel Mccray ([id number]) on 10/31/2019 4:00:22 PM Referred By: REFERRED SELF Confirmed By:Angel Mccray
[2019-10-31] MEDS ORDERED: cefTRIAXone SODIUM 2,000 MG in DEXTROSE 5% 50 ML IV SCH (17:00)
[2019-10-31] MEDS: hydrOXYzine HCl 10 MG TAB PO PRN (17:15)
--- NOTE | 2019-10-31 19:16 | Hospitalist Progress Note ---
Date of Service October 31, 2019 Assessment & Plan (1) Ascites: (2) Alcoholic cirrhosis: Was sent by outpatient GI office for evaluation of hypokalemia and ascites Recent EGD done in the last admission showed portal gastropathy and grade 2 esophageal varices Outpatient hepatic duplex was negative, however did show moderate ascites Successful ultrasound-guided paracentesis where 2.5 L ascitic fluid removed Received albumin before and after paracentesis No signs of SBP IV ceftriaxone for SBP discontinued GI on board recommended to increase spironolactone to 100mg daily and hold lasix for now due to hypokalemia on discharge Check BMP in 1 week to monitor electrolytes and renal function Follow up with GI outpatient OK from GI standpoint to discharge home once medically stable (3) Hypokalemia: (4) Hypomagnesemia: (5) Hypophosphatemia: Possible related to diuretic and poor oral intake Electrolytes stable Continue monitor electrolytes (6) COPD (chronic obstructive pulmonary disease): No signs of acute exacerbation Has been required 2L NC oxygen Continue home inhalers Continue to try to wean her from the oxygen Will get a nocturnal pulse oximetry and possible a 2 step on discharge (7) Abnormal chest x-ray: CXR showing questionable right basilar infiltrate versus atelectasis Likely atelectasis, patient denies cough, sputum production. No leukocytosis or fever. Will repeat CXR in am (8) Thrombocytopenia: Mostly related to liver disease Platelet dropped to 72 No signs of bleeding Continue monitor CBC (9) DVT prophylaxis: SCDs due to thrombocytopenia CODE STATUS FULL CODE Admission and Anticipated Discharge Date Admission Date: October 30, 2019 Subjective Pt was seen and examined Lying in bed with no distress Pt said that her abdomen feels much better after the paracentesis She said that her strength is a little better She said that she has not drank any alcohol since discharged Denies any chest pain, palpitation, dizziness and SOB Physical Exam Physical Exam: General- No acute distress Head- atraumatic Eyes- PERRL, No nystagmus ENT- oropharynx clear Neck- supple, no JVD Lungs- No wheezing Heart- regular rhythm; no murmur Abdomen- normal bowel sounds, +tender with palpation Extremities- no calf tenderness, No tremor Neuro- alert, oriented, PERRL, EOMI; no facial palsy; no dysarthria Skin- warm & dry Results & Data ([facility]) Vital Signs (Past 12 Hours) Vital Signs Temp Pulse Pulse Resp BP Pulse Ox 10/31/19 15:48 85 10/31/19 15:39 87 16 112/53 L 94 10/31/19 11:06 36.7 C 93 H 18 103/70 89 L 10/31/19 08:00 87 10/31/19 07:35 36.5 C 96 H 21 117/76 94
[2019-10-31] MEDS ORDERED: POTASSIUM CHLORIDE 20 MEQ TABCR PO STA (19:34)
[2019-10-31] MEDS: NICOTINE 7 MG/24 HR TDSY TD SCH (21:12)
[2019-10-31] MEDS ORDERED: LORazepam 0.5 MG TAB PO STA (21:50)
[2019-11-01 06:47] LABS: Hemoglobin 9.3 g/dL (12.0-16.0); Mean Corpuscular Hemoglobin 32.7 pg (25-34); Mean Corpuscular Hgb Conc 33.2 g/dL (32-36); Mean Corpuscular Volume 98.6 fL (80-100); RDW Coefficient of Variation 17.7 % (11.5-14.5); Red Blood Count 2.84 M/uL (4.2-5.4); White Blood Count 4.98 K/uL (4.8-10.8)
[2019-11-01 06:55] LABS: Mean Platelet Volume 11.6 fL (7.4-10.4); Platelet Count 61 K/uL (130-400)
--- NOTE | 2019-11-01 07:10 | XRay Report ---
XR chest 1V portable CLINICAL HISTORY: Shortness of breath. Abnormal chest x-ray. Follow-up study. COMPARISON STUDY: 10/30/2019 FINDINGS: The cardiac and mediastinal contours remain stable. There are increasing basilar opacities right greater than left, atelectatic versus infectious/inflammatory. There is minor blunting of the l ateral costophrenic angles. There is no overt failure.[ IMPRESSION: Increasing basilar opacities, atelectatic versus infectious/inflammatory. ACT 112: Negative or not required by law. Electronically signed by: Nas Ramirez M.D. 11/01/2019 7:08 AM
[2019-11-01 07:20] LABS: BUN Creatinine Ratio 3.5 (10-20); Calcium 7.9 mg/dl (8.5-10.1); Creatinine Clr Calc Pharmacy 79.3 ml/min; Est GFR (African American) 108.2; Est GFR (Non-African American) 93.4; Magnesium 1.8 mg/dl (1.8-2.4); Potassium 3.6 mmol/L (3.5-5.1)
[2019-11-01] MEDS: NICOTINE 7 MG/24 HR TDSY TD SCH (08:04)
[2019-11-01] MEDS: UMECLIDINIUM BROMIDE 62.5MCG/BLISTER 7 PUFFS/INHALER INH SCH (08:04)
[2019-11-01] MEDS: FLUTICASONE/VILANTEROL 100/25MCG 14 PUFFS/INHALER INH SCH (08:05)
[2019-11-01] MEDS: FOLIC ACID 1 MG TAB PO SCH (08:05)
[2019-11-01] MEDS: PANTOprazole 40 MG TAB PO SCH (08:05)
[2019-11-01] MEDS: hydrOXYzine HCl 10 MG TAB PO PRN (08:06)
[2019-11-01] MEDS: THIAMINE HCL 100 MG TAB PO SCH (08:06)
[2019-11-01] MEDS ORDERED: SPIRONOLACTONE 100 MG TAB PO SCH (09:00)
[2019-11-01] MEDS ORDERED: levoFLOXacin 500 MG TAB PO SCH (11:00)
[2019-11-01] MEDS: MoRPHine SULFATE 4 MG/ML 1 ML CARP\\VIAL IV PRN ×2 (12:23→16:46)
--- NOTE | 2019-11-01 16:06 | Hospitalist Progress Note ---
Date of Service November 01, 2019 Assessment & Plan (1) Ascites: (2) Alcoholic cirrhosis: Was sent by outpatient GI office for evaluation of hypokalemia and ascites Recent EGD done in the last admission showed portal gastropathy and grade 2 esophageal varices Outpatient hepatic duplex was negative, however did show moderate ascites Successful ultrasound-guided paracentesis where 2.5 L ascitic fluid removed Received albumin before and after paracentesis No signs of SBP IV ceftriaxone for SBP discontinued GI on board recommended to increase spironolactone to 100mg daily and hold lasix for now due to hypokalemia on discharge Check BMP in 1 week to monitor electrolytes and renal function Follow up with GI outpatient [place] from GI standpoint to discharge home once medically stable (3) Hypokalemia: (4) Hypomagnesemia: (5) Hypophosphatemia: Possible related to diuretic and poor oral intake Electrolytes stable Check BMP in 1 week (6) COPD (chronic obstructive pulmonary disease): No signs of acute exacerbation Has been required 2L NC oxygen Continue home inhalers Nocturnal pulse oximetry done and pt requires oxygen at night 2 step exercise done and she does not qualify for oxygen with exertion (7) Abnormal chest x-ray: Possible Pneumonia CXR showing questionable right basilar infiltrate versus atelectasis on admission Repeat CXR showed increasing basilar opacities No leukocytosis or fever. Starting on Levaquin po daily Continue monitor (8) Thrombocytopenia: Mostly related to liver disease Platelet dropped to 61 No signs of bleeding Continue monitor CBC (9) DVT prophylaxis: SCDs due to thrombocytopenia CODE STATUS FULL CODE Admission and Anticipated Discharge Date Admission Date: October 30, 2019 Subjective Pt was seen and examined Lying in bed with no distress Pt said that she feels ok She said that she slept well last night Denies any chest pain, palpitation, dizziness and SOB Physical Exam Physical Exam: General- No acute distress Head- atraumatic Eyes- PERRL, No nystagmus ENT- oropharynx clear Neck- supple, no JVD Lungs- No wheezing Heart- regular rhythm; no murmur Abdomen- normal bowel sounds, +tender with palpation Extremities- no calf tenderness, No tremor Neuro- alert, oriented, PERRL, EOMI; no facial palsy; no dysarthria Skin- warm & dry Results & Data ([facility]) Vital Signs (Past 12 Hours) Vital Signs Temp Pulse Pulse Pulse Pulse Resp Resp 11/01/19 11:45 36.7 C 77 19 11/01/19 11:27 92 H 85 81 20 11/01/19 08:10 36.7 C 83 17 Resp Resp BP BP Pulse Ox Pulse Ox Pulse Ox 11/01/19 11:45 98/61 L 92 11/01/19 11:27 18 16 90 90 11/01/19 08:10 101/85 97 Pulse Ox 11/01/19 11:45 11/01/19 11:27 90 11/01/19 08:10
--- NOTE | 2019-11-04 08:28 | Discharge Summary ---
Date of Service November 01, 2019 Admission HPI Per Admitting Provider 53 year old female who was sent to the ED by referral of outpatient GI provider for evaluation of severe hypokalemia. Patient with history of hepatitis C s/p treatment and alcoholic cirrhosis. Most recently admitted to [facility] 10/15 - for upper GI bleed. Underwent EGD showing portal gastropathy and grade II esophageal varices. On discharge, patient was started on PPI BID. Patient reports she had been doing well since discharge up until about 6 days ago when she developed abdominal bloating/swelling. She was seen by her PCP on 10/24 and placed on Lasix and Potassium. She was seen by GI yesterday and started on spi ronolactone. Today, patient underwent hepatic duplex that was negative however did show moderate ascites. Labs showed severe hypokalemia with K+ 2.4. Patient was referred to the ER for further evaluation. Patient reports that along with the abdominal distention, she has had worsening shortness of breath. She reports a feeling of fullness and has had a very poor appetite. She denies chest pain and palpitations. No lightheadedness, dizziness, diaphoresis, syncopal events. Her abdomen is very tender however she denies nausea, vomiting, diarrhea. Reports a low-grade fever yesterday. No urinary symptoms. In the ED, patient is found to have several electrolyte abnormalities including K+ 2.1, phosphorus 1.5, magnesium 1.5. Patient received IV morphine, and IV potassium and IV phosphorus supplementation. Admission Exam Per Admitting Provider Constitutional: WD/WN, vitals as above Eyes: PERRL; no conjunctival abnormality and sclerae not anicteric (Sclera mildly icteric) ENMT: external ear and nose normal, oropharynx normal Respiratory: normal respiratory effort, lungs clear to auscultation Cardiovascular: regular rate and regular rhythm Vessels: normal peripheral pulses Extremities: + edema (+1 edema BLE) Gastrointestinal:Inspection/Auscultation: + abdomen distended and normal bowel sounds Percussion/Palpation: + abdomen tender (Diffusely tender to palpation), + ascites and + abdomen firm; no hepatosplenomegaly Musculoskeletal: no cyanosis or clubbing, extremities motor strength 5/5 Skin: no rashes, warm and dry Neurologic: PERRL, EOMI, accommodation nl, no face palsy, no dysarthria Motor/Sensory: + tremor Psychiatric: A+Ox3, euthymic affect Principal Diagnosis Ascites: Alcoholic cirrhosis: Hypokalemia: Hypomagnesemia: Hypophosphatemia: COPD (chronic obstructive pulmonary disease): Abnormal chest x-ray (Possible Pneumonia) Thrombocytopenia: Discharge Exam General- No acute distress Head- atraumatic Eyes- PERRL, No nystagmus ENT- oropharynx clear Neck- supple, no JVD Lungs- No wheezing Heart- regular rhythm; no murmur Abdomen- normal bowel sounds, +tender with palpation Extremities- no calf tenderness, No tremor Neuro- alert, oriented, PERRL, EOMI; no facial palsy; no dysarthria Skin- warm & dry Discharge Data Allergies Allergy/AdvReac Type Severity Reaction Status Date / Time codeine AdvReac Severe upset Verified 10/15/19 18:34 stomach Consultations 10/30/19 14:04 ED Decision to Admit Stat 10/30/19 17:10 Consult Gastroenterology Routine Ordered Studies 10/31/19 13:00 US paracentesis abd w/image Routine XR chest 1V portable CLINICAL HISTORY: SOB dyspnea COMPARISON STUDY: 04/14/2020 FINDINGS: Small parenchymal infiltrate/atelectatic change right base. Lungs otherwise appear clear. Diaphragms are smooth. Slight elevation right hemidia phragm. No significant cardiac enlargement. IMPRESSION: Small parenchymal infiltrate and/or atelectatic change right base. ACT 112: Negative or not required by law. The above report was generated using voice recognition software. It may contain grammatical, syntax or spelling errors. Electronically signed by: Bertram Fuchs M.D. 10/30/2019 12:20 PM Dictated: 10/30/19 1219 Transcribed: 10/30/19 1219 [facility] HISTORY: Acute generalized abdominal pain with distention abdominal distension (ascites vs bowel distension) COMPARISON: [facility] 10/17/2019, CT abdomen and pelvis 06/25/2018 FINDINGS: The bowel gas pattern is non-obstructive. Mild gaseous distention of the large bowel. Ill-defined opacity of the central lower pelvis may correlate with distended urinary bladder versus ascites. Scattered pelvic basin calcifications are suggestive of phleboliths. The liver appears enlarged. No renal calculi. No ureteral calculi. No pneumoperitoneum or pneumatosis. Osteoarthritis of the right hip with cannulated screw of the right acetabulum. Mild convex right curvature of the mid lumbar spine. No fracture. IMPRESSION: Mild gaseous distention of the large bowel with nonobstructive bowel gas pattern. ACT 112: Negative or not required by law. The above report was generated using voice recognition software. It may contain grammatical, syntax or spelling errors. Electronically signed by: Abdirizak Plaza M.D. 10/31/2019 12:47 PM Dictated: 10/31/19 1244 Transcribed: 10/31/19 1244 US paracentesis abd w/image CLINICAL HISTORY: 53 years-old Female with ascites. Acute abdominal distention with ascites COMPARISON: MRCP 10/18/2019 PROCEDURE: The procedure was explained to the patient in the care including the benefits and possible risks/complications. The patient gave verbal understanding and written consent was obtained. A time-out was performed prior to the start of the procedure. The patient was placed on the ultrasound table in the supine position. Using ultrasound guidance, an appropriate procedure site in the left lower quadrant abdomen was marked. This area was then prepped and draped in the usual sterile fashion. Local anesthesia was achieved within 1% lidocaine. An 8-Libyan centesis catheter was then inserted. Approximately 2.5 liters of clear, yellowish fluid was removed and 1.0 L was sent to the lab for analysis. The catheter was removed and external pressure was held to achieve hemostasis. A sterile dressing was applied to the procedure site. The patient tolerated the procedure well without immediate complications. IMPRESSION: Successful ultrasound-guided paracentesis with removal of 2.5 L ascitic fluid. 1.0 L was sent to the lab for analysis. ACT 112: Negative or not required by law. The above report was generated using voice recognition software. It may contain grammatical, syntax or spelling errors. Electronically signed by: Abdirizak Plaza M.D. 10/31/2019 2:35 PM Dictated: 10/31/19 1434 Transcribed: 10/31/19 1434 XR chest 1V portable CLINICAL HISTORY: Shortness of breath. Abnormal chest x-ray. Follow-up study. COMPARISON STUDY: 10/30/2019 FINDINGS: The cardiac and mediastinal contours remain stable. There are increasing basilar opacities right greater than left, atelectatic versus infectious/inflammatory. There is minor blunting of the lateral costophrenic angles. There is no overt failure.[ IMPRESSION: Increasing basilar opacities, atelectatic versus infectious/inflammatory. ACT 112: Negative or not required by law. Electronically signed by: Nas Ramirez M.D. 11/01/2019 7:08 AM Dictated: 11/01/19704 Transcribed: 11/01/19704 Hospital Course (1) Ascites: (2) Alcoholic cirrhosis: Was sent by outpatient GI office for evaluation of hypokalemia and ascites Recent EGD done in the last admission showed portal gastropathy and grade 2 esophageal varices Outpatient hepatic duplex was negative, however did show moderate ascites Successful ultrasound-guided paracentesis where 2.5 L ascitic fluid removed Received albumin before and after paracentesis No signs of SBP IV ceftriaxone for SBP discontinued GI on board recommended to increase spironolactone to 100mg daily and hold lasix for now due to hypokalemia on discharge Check BMP in 1 week to monitor electrolytes and renal function Follow up with GI outpatient OK from GI standpoint to discharge home once medically stable (3) Hypokalemia: (4) Hypomagnesemia: (5) Hypophosphatemia: Possible related to diuretic and poor oral intake Electrolytes stable Check BMP in 1 week (6) COPD (chronic obstructive pulmonary disease): No signs of acute exacerbation Has been required 2L NC oxygen Continue home inhalers Nocturnal pulse oximetry done and pt requires oxygen at night 2 step exercise done and she does not qualify for oxygen with exertion (7) Abnormal chest x-ray: Possible Pneumonia CXR showing questionable right basilar infiltrate versus atelectasis on admission Repeat CXR showed increasing basilar opacities No leukocytosis or fever. Starting on Levaquin po daily Continue monitor (8) Thrombocytopenia: Mostly related to liver disease Platelet dropped to 61 No signs of bleeding Continue monitor CBC (9) DVT prophylaxis: SCDs due to thrombocytopenia CODE STATUS FULL CODE Total Time Total Time Spent Total Time Spent (In Minutes): 35 minutes Total Time Includes: Examination of the Patient, Discharge Planning, Medication Reconciliation, Communication With Other Providers and Other Discharge Plan Discharge Items Patient Disposition: Home - Home Health Services Reason For Visit: HYPOKALEMIA,ASCITES Discharge Diagnosis: Ascites: Alcoholic cirrhosis: Hypokalemia: Hypomagnesemia: Hypophosphatemia: COPD (chronic obstructive pulmonary disease): Abnormal chest x-ray (Possible Pneumonia) Thrombocytopenia: Condition on Discharge: Fair Activity: Resume your previous activity Non-emergency contact: Primary Care Provider and Pheresis Nurse Call non-emergency contact if: you have any medication questions and your temperature is above 101 Follow-up/Referrals: Sumi Dailey DO [Primary Care Provider] - 11/02/19 4:10 pm (PLEASE ARRIVE BY 355 PM) Diet: Low Sodium (2gm) Addtl Attending Provider Instructions: Follow up with your primary care provider Dr. Dailey within 1 week Follow up with Gastroenterology in 2 -4 weeks (please call for the appointment) Check CBC and BMP on Tuesday Use oxygen supplement at night Fall precaution Counseling on smoking cessation Avoid any NSAID such as Motrin, Aleve, Naproxen, Advil, Ibuprofen,.. to avoid the risk of bleeding Do not drive or operate any machine after taking the tramadol Please hold next dose if you become drowsy and lethargy Pending Studies at Discharge: No Stand-Alone Forms: My [facility], Smoking Cessation Medications and DC Order Prescriptions: New spironolactone 100 mg Tablet 100 mg PO DAILY 30 Days Qty: 30 RF: 0 levofloxacin 500 mg Tablet 500 mg PO DAILY@1100 6 Days Qty: 6 RF: 0 tramadol 50 mg tablet 50 mg PO Q12H PRN (Reason: pain) Qty: 8 RF: 0 Continued albuterol sulfate 90 mcg/actuation Hfa Aerosol Inhaler 2 puff INHALATION Q6H PRN (Reason: Shortness Of Breath Or Wheezing) RF: 0 Incruse Ellipta 62.5 mcg/actuation Blister With Device 1 inh INHALATION DAILY RF: 0 Breo Ellipta 100-25 mcg/dose Blister With Device 1 inh INHALATION DAILY RF: 0 thiamine HCl (vitamin B1) [Vitamin B-1] 100 mg Tablet 100 mg PO QAM Qty: 30 RF: 0 folic acid 1 mg Tablet 1 mg PO QAM Qty: 30 RF: 0 hydroxyzine HCl 10 mg tablet 10 mg PO Q12H PRN (Reason: anxiety) Qty: 30 RF: 0 omeprazole 40 mg capsule,delayed release(DR/EC) 40 mg PO BID RF: 0 furosemide 20 mg tablet 20 mg PO DIRECTED PRN (Reason: swellling) RF: 0 Changed potassium chloride 10 mEq capsule, extended release 10 meq PO BID PRN (Reason: on the day receives lasix) Qty: 0 RF: 0 Discontinued spironolactone 25 mg tablet 25 mg PO DAILY RF: 0 Discharge Orders: Discharge Order (Routine); Ordered 11/01/19 Ordered By: Ramandeep Meza Admission Data Admit Date/Time: 10/30/19 14:38 Attending Provider: Ramandeep Meza Admit Provider: Joselin Blackwell Primary Care Provider: Sumi Dailey Other Providers: Joselin Blackwell ; Monique Kowalski Other Interventions: Discharge Summary Assessment (RN) Last Done: 11/01/19 17:34 DC Date/Time DO NOT enter until pt leaves facility: 11/01/19 17:55
== END 2019-11-01 17:55 | disposition home health service (06) | DRG 433 ==
LOC: ED 11:07 → SUATTDRO 14:38 → 2E 14:38

== ENCOUNTER 2021-03-27 23:50 | Inpatient (IN) ==
[2021-03-28] MEDS ORDERED: FAMOTIDINE 20MG IV PUSH 20 MG/5 ML SYR IV STA (00:59)
[2021-03-28] MEDS ORDERED: ONDANSETRON INJ 2 MG/ML 2 ML VIAL IV STA ×2 (01:00→02:37)
[2021-03-28 01:15] LABS: Mean Corpuscular Hgb Conc 33.2 g/dL (32-36)
[2021-03-28 01:29] LABS: INR 1.5 (0.9-1.1); Partial Thromboplastin Time 26.8 Seconds (21.0-31.0); Prothrombin Time 14.8 Seconds (9.0-12.0)
[2021-03-28 01:33] LABS: Alanine Aminotransferase 30 U/L (12-78); Albumin Level 3.2 gm/dl (3.4-5.0); Aspartate Aminotransferase 74 U/L (15-37); BUN Creatinine Ratio 30.5 (10-20); Blood Urea Nitrogen 24 mg/dl (7-18); Calcium 8.7 mg/dl (8.5-10.1); Carbon Dioxide 24 mmol/L (21-32); Chloride 103 mmol/L (98-107); Est GFR (Non-African American) 83.7 ml/min; Glucose 92 mg/dl (70-99); Potassium 3.2 mmol/L (3.5-5.1); Sodium 141 mmol/L (136-145)
[2021-03-28 01:36] LABS: Albumin Globulin Ratio 0.7 (0.9-2); Alkaline Phosphatase 106 U/L (45-117); Bilirubin,Total 2.4 mg/dl (0.2-1); Globulin 4.5 gm/dl (2.5-4.0); Total Protein 7.7 gm/dl (6.4-8.2)
[2021-03-28 02:00] LABS: Hematocrit (blood only) 30.7 % (37-47); Hemoglobin 10.2 g/dL (12.0-16.0); Mean Corpuscular Hemoglobin 28.3 pg (25-34); Mean Corpuscular Volume 85.3 fL (80-100); RDW Coefficient of Variation 21.3 % (11.5-14.5); RDW Standard Deviation 67.2 fL (36.4-46.3); White Blood Count 5.38 K/uL (4.8-10.8)
[2021-03-28 02:15] LABS: Basophils # (auto) 0.03 K/uL (0-0.2); Basophils % (auto) 0.6 %; Lymphocytes # (auto) 1.12 K/uL (1.2-3.4); Lymphocytes % (auto) 20.8 %; Monocytes # (auto) 1.29 K/uL (0.11-0.59); Neutrophils # (auto) 2.94 K/uL (1.4-6.5); Neutrophils % (auto) 54.6 %; Platelet Count 58 K/uL (130-400); Platelet Estimate Decreased (Normal); Polychromasia 1+
[2021-03-28] MEDS ORDERED: LORazepam 0.5 MG/1 ML VIAL IV STA (02:37)
[2021-03-28] MEDS ORDERED: MULTI-VITAMIN INFUSION 10 ML, THIAMINE HCL 100 MG, FOLIC ACID 1 MG in SODIUM CHLORIDE 0... IV ONE (02:37)
--- NOTE | 2021-03-28 04:40 | Emergency Department Note ---
Impression & Plan GI bleed, Alcohol abuse Admitted to the [facility] service ED Provider Note NAME: SERGIO MCCRARY AGE: 55 SEX: F ARRIVES VIA: Walk-In INFORMANT: patient and her ED PROVIDER(S): Bertha Estrada DO CHIEF COMPLAINT: Hematemesis PLAN: [facility] Condition: Guarded MEDICAL DECISION MAKING: This is a 55-year-old female patient who presents to the emergency department with hematemesis and hematochezia. Patient has a history of alcohol abuse and esophageal varices. Patient had been sober for the past 3 months but started drinking again approximately 2 weeks ago. She is concerned because she started to vomit this morning and it has been constant and has been bright red in color and coffee ground at times. She is now having intermittent episodes of abdominal pain and stooled herself. The stool was black in color. The patient's H/H was stable. Blood pressure remained stable. She was given a banana bag along with some IV Pepcid. She required some IV Ativan for slight withdrawal symptoms. Triage Nursing notes reviewed and agree them. additional history obtained from her prior medical records reviewed Vital Signs: reviewed and remarkable for tachycardia Differential diagnosis: GI bleed; alcoholic hepatitis; bleeding esophageal varices; alcoholic gastritis ER treatment provided: IV Pepcid (IV Protonix unavailable) IV Ativan IV banana bag IV Zofran x2 Diagnostics interpreted by me: ECG: Normal sinus rhythm at a rate of [address] segment elevation or signs of ischemia. There is no ectopy. Cardiac Monitoring: Normal sinus rhythm at a rate of 97 Laboratory studies: see below HPI: 55/F arrives for evaluation of hematochezia and hematemesis. Patient has a history of alcohol abuse and esophageal varices. Patient had been sober for the past 3 months but started drinking again approximately 2 weeks ago. She is concerned because she started to vomit this morning and it has been constant and has been bright red in color and coffee ground at times. She is now having intermittent episodes of abdominal pain and stooled herself. The stool was black in color. The patient was scheduled to have banding of esophageal varices on April [address] Bro. ROS: See above HPI for pertinent positives & negatives. A total of 10 systems reviewed and were otherwise negative. PAST MEDICAL HISTORY: see Below PAST SURGICAL HISTORY: see Below FAMILY HISTORY: see Below SOCIAL HISTORY: see Below HOME MEDICATIONS:See list ALLERGIES:See list VITALS: see Below PHYSICAL EXAMINATION: HEENT: Head - normocephalic and atraumatic. Pupils are equal, round, and reactive to light. Extraocular eye muscles are intact, and sclera are anicteric. Nose - moist nasal mucosa without discharge. Mouth - moist buccal mucosa. Oropharynx is nonerythematous and there is no tonsillar exudate or edema noted. Neck: Supple; no cervical lymphadenopathy or thyromegaly. Heart: Regular rate and rhythm. There is a normal S1 and S2 with no murmurs, clicks, or gallops appreciated. Lungs: Clear to auscultation bilaterally with no wheezes, rales, or rhonchi. Abdomen: Soft, diffusely tender, nondistended, with good bowel sounds. There are no palpable pulsatile masses or hepatosplenomegaly. There is no guarding, rigidity, or rebound noted. Extremities: No evidence of cyanosis, clubbing, or edema. There are easily palpable peripheral pulses. Skin: warm and dry with good turgor and no rashes. ED COURSE: Times/Reassessments: 0040: The patient was evaluated in room B4. Complete history and physical was performed. Previous electronic medical records were reviewed. An IV lock was initiated and labs were drawn as above. An order was placed for continuous cardiac monitoring. Patient is in a normal sinus rhythm at a rate of 97. A twelve-lead EKG was obtained as described above. Patient was given IV Pepcid in place of IV Protonix as it was unavailable. She was given 4 mg of IV Zofran for nausea. Patient was started on normal saline. 0230: Patient was exhibiting some withdrawal symptoms and was given 0.5 mg of IV Ativan along with another 2 mg of IV Zofran for nausea as she continued to have dry heaves. Bertha Estrada DO Past Med/Surg History Medical History (Updated 03/28/21 @ 07:50 by Bertha Estrada DO) Anxiety and depression Cirrhosis of liver (11/21/12) treated with [facility]voni in [facility] pt is now negative COPD (chronic obstructive pulmonary disease) Hepatitis C Portal hypertension Thrombocytopenia Transaminitis Surgical History History of total right hip replacement History of tubal ligation Family History Mother Cervical cancer Social History Smoking Status: Current every day smoker Tobacco Type: Cigarettes Cigarettes Per Day: 15; Second Hand Exposure: Yes; Do You Dip or Chew Tobacco: No; Tobacco Cessation Education Requested by Patient: Yes Hx Alcohol Use: Yes Alcohol type: beer and hard liquor Alcohol Intake Frequency Comment: Patient reports no alcohol since 10/13/2019 Hx Substance Use: No Preferred Language: Bahamian Communication Ability: Effective [employer] Custodian Required: No Beliefs That Will Affect Care: None marital status: Current Living Situation: Spouse Feels Safe at Home: Yes Safety Concerns: Feels Safe At This Time Assistive Devices: Glasses Allergies Allergies Allergy/AdvReac Type Severity Reaction Status Date / Time codeine AdvReac Severe upset Verified 03/28/21 01:00 stomach Home Meds Home Medications Medication Instructions Recorded Confirmed albuterol sulfate 90 mcg/actuation 2 puff INHALATION Q6H PRN 01/08/19 03/28/21 aerosol inhaler omeprazole 40 mg capsule,delayed 40 mg PO BID 10/30/19 03/28/21 release cyclobenzaprine 5 mg tablet 5 mg PO DAILY PRN 03/28/21 03/28/21 potassium chloride 10 mEq 10 meq PO DIRECTED 03/28/21 03/28/21 capsule,extended release umeclidinium 62.5 mcg-vilanterol 1 inh INHALATION DAILY 03/28/21 03/28/21 25 mcg/actuation powdr for inhalation (Anoro Ellipta) Previous Rx's Medication Instructions Recorded hydroxyzine HCl 10 mg tablet 10 mg PO Q12H PRN #30 tab 01/13/19 Results & Data (ED) Vital Signs Vital Signs - 24 hr 03/27/21 23:53 03/28/21 01:01 03/28/21 01:27 Temperature 36.3 C L Temperature Source Temporal Artery Scan Pulse Rate 109 H 97 H 90 Pulse Rate from SpO2 Sensor 95 H Respiratory Rate 20 28 H 16 Respiratory Effort / Characteristics Non-Labored Spontaneous Respiratory Depth Normal Respiratory Pattern Regular Blood Pressure 110/64 113/68 Blood Pressure Mean 79 83 Pulse Oximetry 98 98 97 Oxygen Delivery Method Room Air Room Air Sepsis Recent Fever Within 48 Hours No Sepsis New/Unexplained Change in Mental Status No Sepsis Action Taken by Nursing No Action Required 03/28/21 01:30 03/28/21 02:00 03/28/21 02:30 Temperature Temperature Source Pulse Rate 89 107 H 98 H Pulse Rate from SpO2 Sensor 91 H 106 H 97 H Respiratory Rate 22 18 18 Respiratory Effort / Characteristics Respiratory Depth Respiratory Pattern Blood Pressure 113/71 108/72 119/61 Blood Pressure Mean 85 84 80 Pulse Oximetry 97 96 96 Oxygen Delivery Method Sepsis Recent Fever Within 48 Hours Sepsis New/Unexplained Change in Mental Status Sepsis Action Taken by Nursing 03/28/21 03:00 03/28/21 03:30 03/28/21 04:00 Temperature Temperature Source Pulse Rate 97 H 93 H 105 H Pulse Rate from SpO2 Sensor 97 H 95 H Respiratory Rate 20 21 19 Respiratory Effort / Characteristics Respiratory Depth Respiratory Pattern Blood Pressure 91/47 L 100/62 91/52 L Blood Pressure Mean 61 74 65 Pulse Oximetry 95 97 Oxygen Delivery Method Sepsis Recent Fever Within 48 Hours Sepsis New/Unexplained Change in Mental Status Sepsis Action Taken by Nursing Laboratory Data Result diagrams: 03/28/21 07:07 03/28/21 01:01 Lab Results 03/28/21 03/28/21 03/28/21 Range/Units 01:01 01:01 01:01 WBC 5.38 (4.8-10.8) K/uL RBC 3.60 L (4.2-5.4) M/uL Hgb 10.2 L (12.0-16.0) g/dL Hct 30.7 L (37-47) % MCV 85.3 (80-100) fL MCH 28.3 (25-34) pg MCHC 33.2 (32-36) g/dL RDW Std Deviation 67.2 H (36.4-46.3) fL RDW Coeff of Radha 21.3 H (11.5-14.5) % Plt Count 58 L (130-400) K/uL Immature Gran % (Auto) 0.0 % Neut % (Auto) 54.6 % Lymph % (Auto) 20.8 % [place] % (Auto) 24.0 % Eos % (Auto) 0.0 % Baso % (Auto) 0.6 % Neut # (Auto) 2.94 (1.4-6.5) K/uL Lymph # (Auto) 1.12 L (1.2-3.4) K/uL [place] # (Auto) 1.29 H (0.11-0.59) K/uL Eos # (Auto) 0.00 (0-0.5) K/uL Baso # (Auto) 0.03 (0-0.2) K/uL Immature Gran # (Auto) 0.00 (0.00-0.02) K/uL Platelet Estimate Decreased L (Normal) Polychromasia 1+ PT 14.8 H (9.0-12.0) Seconds INR 1.5 H (0.9-1.1) APTT 26.8 (21.0-31.0) Seconds PTT Ratio 1.0 Sodium 141 (136-145) mmol/L Potassium 3.2 L (3.5-5.1) mmol/L Chloride 103 (98-107) mmol/L Carbon Dioxide 24 (21-32) mmol/L Anion Gap 14.0 H (3-11) BUN 24 H (7-18) mg/dl Creatinine 0.79 (0.6-1.2) mg/dl Est Cr Clr Drug Dosing Not Reportable Est GFR ( Amer) 97.0 ml/min Est GFR (Non-Af Amer) 83.7 ml/min BUN/Creatinine Ratio 30.5 H (10-20) Glucose 92 (70-99) mg/dl Calcium 8.7 (8.5-10.1) mg/dl Total Bilirubin 2.4 H (0.2-1) mg/dl AST 74 H (15-37) U/L ALT 30 (12-78) U/L Alkaline Phosphatase 106 (45-117) U/L Total Protein 7.7 (6.4-8.2) gm/dl Albumin 3.2 L (3.4-5.0) gm/dl Globulin 4.5 H (2.5-4.0) gm/dl Albumin/Globulin Ratio 0.7 L (0.9-2) Blood Type Antibody Screen 03/28/21 Range/Units 01:06 WBC (4.8-10.8) K/uL RBC (4.2-5.4) M/uL Hgb (12.0-16.0) g/dL Hct (37-47) % MCV (80-100) fL MCH (25-34) pg MCHC (32-36) g/dL RDW Std Deviation (36.4-46.3) fL RDW Coeff of Radha (11.5-14.5) % Plt Count (130-400) K/uL Immature Gran % (Auto) % Neut % (Auto) % Lymph % (Auto) % [place] % (Auto) % Eos % (Auto) % Baso % (Auto) % Neut # (Auto) (1.4-6.5) K/uL Lymph # (Auto) (1.2-3.4) K/uL [place] # (Auto) (0.11-0.59) K/uL Eos # (Auto) (0-0.5) K/uL Baso # (Auto) (0-0.2) K/uL Immature Gran # (Auto) (0.00-0.02) K/uL Platelet Estimate (Normal) Polychromasia PT (9.0-12.0) Seconds INR (0.9-1.1) APTT (21.0-31.0) Seconds PTT Ratio Sodium (136-145) mmol/L Potassium (3.5-5.1) mmol/L Chloride (98-107) mmol/L Carbon Dioxide (21-32) mmol/L Anion Gap (3-11) BUN (7-18) mg/dl Creatinine (0.6-1.2) mg/dl Est Cr Clr Drug Dosing Est GFR ( Amer) ml/min Est GFR (Non-Af Amer) ml/min BUN/Creatinine Ratio (10-20) Glucose (70-99) mg/dl Calcium (8.5-10.1) mg/dl Total Bilirubin (0.2-1) mg/dl AST (15-37) U/L ALT (12-78) U/L Alkaline Phosphatase (45-117) U/L Total Protein (6.4-8.2) gm/dl Albumin (3.4-5.0) gm/dl Globulin (2.5-4.0) gm/dl Albumin/Globulin Ratio (0.9-2) Blood Type B Positive Antibody Screen NEGATIVE Administered Medications Discontinued Medications Famotidine (Pepcid 20mg Iv Push) 20 mg in 5 mls @ 2.5 mls/min IV NOW STA Stop: 03/28/21 01:00 Last Admin: 03/28/21 01:06 Dose: 2.5 mls/min Documented by: [id number] Lorazepam (Ativan) 0.5 mg in 1 mls @ 1 mls/min IV NOW STA Stop: 03/28/21 02:38 Last Admin: 03/28/21 02:45 Dose: 1 mls/min Documented by: [id number] Multivitamins 10 ml/ Thiamine HCl 100 mg/ Folic Acid 1 mg/Sodium Chloride 1,011.2 mls @ 1,011.2 mls/hr IV .Q1H ONE Stop: 03/28/21 03:36 Last Infusion: 03/28/21 04:36 Dose: 0 mls/hr Documented by: [id number] Admin: 03/28/21 03:12 Dose: 1,011.2 mls/hr Documented by: [id number] Ondansetron HCl (Ondansetron Inj 2 Mg/Ml 2 Ml Vial) 4 mg IV NOW STA Stop: 03/28/21 01:01 Last Admin: 03/28/21 01:06 Dose: 4 mg Documented by: [id number] Ondansetron HCl (Ondansetron Inj 2 Mg/Ml 2 Ml Vial) 2 mg IV NOW STA Stop: 03/28/21 02:38 Last Admin: 03/28/21 02:45 Dose: 2 mg Documented by: [id number] Discharge Plan Visit Data Chief Complaint: Vomiting Stated Complaint: VOMITING ED Provider: Bertha Estrada Discharge Problem: GI bleed, Alcohol abuse Patient Disposition: Admitted As Inpatient Discharge Instructions Interventions: ED Discharge Assessment Last Done: 03/28/21 06:19 Discharge Problem: GI bleed Qualifiers: GI bleed type/associated pathology: gastritis Gastritis type: alcoholic Qualified Code(s): K29.21 - Alcoholic gastritis with bleeding
[2021-03-28] MEDS ORDERED: POTASSIUM CHLORIDE CRTAB 20 MEQ TABCR PO STA (06:22)
[2021-03-28] MEDS ORDERED: GABAPENTIN 1200MG ALCOHOL WITHDRAWAL LOAD PO STA (07:01)
[2021-03-28] MEDS ORDERED: PANTOPRAZOLE BOLUS/DRIP 1 EA IV STA (07:01)
[2021-03-28] MEDS ORDERED: ALBUTEROL HFA 8 GM INHALER INH PRN (07:01)
[2021-03-28] MEDS ORDERED: GABAPENTIN 600 MG TAB PO ONE (07:01)
[2021-03-28] MEDS ORDERED: ATIVAN IV ALCOHOL WITHDRAWL IV PRN (07:01)
[2021-03-28] MEDS ORDERED: LORazepam 2 MG/4 ML VIAL IV PRN (07:01)
[2021-03-28] MEDS ORDERED: LORazepam 3 MG/6 ML VIAL IV PRN (07:01)
[2021-03-28] MEDS ORDERED: NITROGLYCERIN SL 0.4 MG/TAB TAB SL PRN (07:01)
[2021-03-28] MEDS ORDERED: CYCLOBENZAPRINE HCL 5 MG TAB PO PRN (07:01)
[2021-03-28] MEDS ORDERED: METOPROLOL TARTRATE 1 MG/ML VIAL IV PRN (07:01)
[2021-03-28] MEDS ORDERED: PANTOprazole 80 MG in DEXTROSE 5% 100 ML IV ONE (07:15)
[2021-03-28] MEDS ORDERED: OCTREOTIDE ACETATE 50 MCG in SYRINGE 9.5 ML IV ONE (07:15)
[2021-03-28 07:19] LABS: Mean Corpuscular Hgb Conc 33.6 g/dL (32-36)
[2021-03-28 07:41] LABS: Hematocrit (blood only) 23.5 % (37-47); Hemoglobin 7.9 g/dL (12.0-16.0); Mean Corpuscular Hemoglobin 28.2 pg (25-34); Mean Corpuscular Volume 83.9 fL (80-100); RDW Coefficient of Variation 21.1 % (11.5-14.5); RDW Standard Deviation 65.7 fL (36.4-46.3); White Blood Count 5.45 K/uL (4.8-10.8)
[2021-03-28 07:49] LABS: Anisocytosis Present; Basophils # (auto) 0.02 K/uL (0-0.2); Basophils % (auto) 0.4 %; Eosinophils # (auto) 0.03 K/uL (0-0.5); Eosinophils % (auto) 0.6 %; Hypochromasia Present; Lymphocytes # (auto) 1.38 K/uL (1.2-3.4); Lymphocytes % (auto) 25.3 %; Monocytes # (auto) 1.21 K/uL (0.11-0.59); Monocytes % (auto) 22.2 %; Neutrophils # (auto) 2.81 K/uL (1.4-6.5); Neutrophils % (auto) 51.5 %; Platelet Count 38 K/uL (130-400); Platelet Estimate SIGNIFIC DECREASED (Normal); Target Cells 1+
[2021-03-28] MEDS: UMECLIDINIUM/VILANTEROL 62.5/25MCG 7 PUFFS/INHALER INH SCH (07:56)
[2021-03-28 07:57] LABS: BUN Creatinine Ratio 30.8 (10-20); Calcium 7.7 mg/dl (8.5-10.1); Creatinine Clr Calc Pharmacy 95.8 ml/min; Est GFR (African American) 118.8 ml/min; Est GFR (Non-African American) 102.5 ml/min; Magnesium 1.7 mg/dl (1.8-2.4); Potassium 3.3 mmol/L (3.5-5.1)
[2021-03-28] MEDS: THIAMINE HCL 100 MG in SYRINGE 9 ML IV SCH (07:57)
[2021-03-28] MEDS: FOLIC ACID 1 MG in SYRINGE 9.8 ML IV SCH (07:57)
[2021-03-28] MEDS: PANTOprazole 40 MG in DEXTROSE 5% 100 ML IV SCH ×3 (07:57→17:45)
[2021-03-28] MEDS: SODIUM CHLORIDE 0.9% 1000ML 1,000 ML IV SCH ×2 (07:58→20:00)
[2021-03-28] MEDS: OCTREOTIDE ACETATE 500 MCG in 0.9 % SODIUM CHLORIDE 100 ML IV SCH ×2 (07:58→16:18)
[2021-03-28] MEDS: hydrOXYzine HCl 10 MG TAB PO PRN ×2 (08:12→20:23)
[2021-03-28] MEDS: ONDANSETRON INJ 2 MG/ML 2 ML VIAL IV PRN ×2 (08:16→16:18)
--- NOTE | 2021-03-28 09:19 | Gastrointestinal Consultation ---
Date of Consultation March 28, 2021 Assessment & Plan (1) Alcoholic cirrhosis: (2) GI bleed: she does admit to relapsing and drinking alcohol 2 weeks ago as her sister was diagnosed with cancer recently. likely incited/worsened the varices, suspect variceal vs. PHG or less likely an ulcer. Recs: octreotide drip protonix drip ceftriaxone 1 g daily for 7 days for SBP ppx in cirrhotic patient with GI bleed keep NPO EGD tomorrow with banding supprotive care, IVFs trend H/H, transfuse prn hgb <7 Thank you for allowing me to participate in the care of this patient History of Present Illness Attending Physician: Joselin Blackwell MD History of Present Illness 55 y/o female w hx of HCV (treated w Brenda, SVR attained), ETOH cirrhosis, MELD at least 26 w Grade II esophageal varices, portal HTN admitted with coffee ground emesis and melena. She reports vomiting blood last night multiple times and passing dark stools. She had an EGD last month with Dr. Bro and found to have varices, tried treatment with beta blockers it appears but unsuccessful. She was scheduled for banding this month on Apr 21. Currently no vomiting in the last 8 hours, symptoms are controlled, no abdominal pains. labs reviewed. VSS but mildly tachycardic. Allergies Allergy/AdvReac Type Severity Reaction Status Date / Time codeine AdvReac Severe upset Verified 03/28/21 01:00 stomach Home Medications Medication Instructions Recorded Confirmed Type albuterol sulfate 90 mcg/actuation 2 puff INHALATION Q6H PRN 01/08/19 03/28/21 History aerosol inhaler hydroxyzine HCl 10 mg tablet 10 mg PO Q12H PRN #30 tab 01/13/19 03/28/21 Rx omeprazole 40 mg capsule,delayed 40 mg PO BID 10/30/19 03/28/21 History release cyclobenzaprine 5 mg tablet 5 mg PO DAILY PRN 03/28/21 03/28/21 History potassium chloride 10 mEq 10 meq PO DIRECTED 03/28/21 03/28/21 History capsule,extended release umeclidinium 62.5 mcg-vilanterol 1 inh INHALATION DAILY 03/28/21 03/28/21 History 25 mcg/actuation powdr for inhalation (Anoro Ellipta) Patient History Medical History Anxiety and depression Cirrhosis of liver (11/21/12) treated with harvoni in [facility] pt is now negative COPD (chronic obstructive pulmonary disease) Hepatitis C Portal hypertension Thrombocytopenia Transaminitis Surgical History History of total right hip replacement History of tubal ligation Family History Mother Cervical cancer Social History Smoking Status: Current every day smoker Tobacco Type: Cigarettes Cigarettes Per Day: 15; Second Hand Exposure: Yes; Do You Dip or Chew Tobacco: No; Tobacco Cessation Education Requested by Patient: Yes Hx Alcohol Use: Yes Alcohol type: beer and hard liquor Alcohol Intake Frequency Comment: Patient reports no alcohol since 10/13/2019 Hx Substance Use: No Preferred Language: Latvian Communication Ability: Effective News Analyst Required: No Beliefs That Will Affect Care: None marital status: Current Living Situation: Spouse Feels Safe at Home: Yes Safety Concerns: Feels Safe At This Time Assistive Devices: Glasses Review of Systems Constitutional: no fever, no chills and no weight loss Eyes: as per Subjective / HPI Ear, Nose, Mouth, Throat: as per Subjective / HPI Respiratory: no dyspnea and no dyspnea on exertion Cardiovascular: no chest pain and no palpitations Gastrointestinal: as per Subjective / HPI Musculoskeletal: no joint pain and no swelling Integumentary: no rash and no lesions Neurologic: no numbness and no paresthesia Psychiatric: no depression and no anxiety Endocrine: no fatigue Hematologic / Lymphatic: no easy bleeding and no easy bruising Physical Exam Constitutional: WD/WN, vitals as above Eyes: EOM intact bilaterally Neck: normal visual inspection Respiratory: normal respiratory effort, lungs clear to auscultation Cardiovascular: RRR, no murmur, no edema Gastrointestinal (Abdomen): Inspection/Auscultation: abdomen normal to inspection; abdomen not distended Percussion/Palpation: + abdomen tender (mild left upper quadrant ) and abdomen soft; no hepatosplenomegaly Musculoskeletal: Extremities: no cyanosis Gait: normal gait Skin: no rashes, warm and dry Neurologic: moves all extremities Psychiatric: A+Ox3, euthymic affect Results & Data ([facility]) Vital Signs (Past 12 Hours) Vital Signs Temp Pulse Pulse Resp BP BP Pulse Ox 03/28/21 06:40 37.4 C 102 H 20 101/62 90 03/28/21 06:00 101 H 22 86/56 L 91 03/28/21 05:30 104 H 18 89/54 L 91 03/28/21 05:00 99 H 19 85/44 L 89 L 03/28/21 04:30 99 H 18 88/48 L 90 03/28/21 04:00 105 H 19 91/52 L 03/28/21 03:30 93 H 21 100/62 97 03/28/21 03:00 97 H 20 91/47 L 95 03/28/21 02:30 98 H 18 119/61 96 03/28/21 02:00 107 H 18 108/72 96 03/28/21 01:30 89 22 113/71 97 03/28/21 01:27 90 16 97 03/28/21 01:01 97 H 28 H 113/68 98 03/27/21 23:53 36.3 C L 109 H 20 110/64 98 PG Care Time/CCT Total # of Minutes Spent Total Time Spent with Patient: Total time spent is greater than 50% in coordination of care (as documented) at patient's floor/unit and/or counseling patient: Coding Level of Care Code 06144 Inpt Consult Level 4 Diagnoses Alcoholic cirrhosis K70.30 GI bleed K29.21 GI bleed type/associated pathology: gastritis Gastritis type: alcoholic (1) GI bleed GI bleed type/associated pathology: gastritis Gastritis type: alcoholic Qualified Code(s): K29.21 - Alcoholic gastritis with bleeding
--- NOTE | 2021-03-28 09:45 | History and Physical Report ---
DATE OF ADMISSION: 03/28/2021. CHIEF COMPLAINT: GI bleed. HISTORY OF PRESENT ILLNESS: A 55-year-old female with past medical history significant for COPD, portal hypertension, cirrhosis of liver, protein-calorie malnutrition, history of thrombocytopenia, history of hepatitis C antibody positive, history of alcoholism, depression, tobacco abuse, presents with coffee-ground emesis and black stools. The patient says since yesterday morning having coffee-ground emesis, abdominal pain and black tarry stools, so she came to the hospital. Currently, she is resting comfortably. Her hemoglobin is 10.2. Still has some abdominal discomfort. Denies any chest pain, no shortness of breath. Has smoker's cough. No fever, no chills. Otherwise, appetite is okay. No dysphagia, no chest pain, no shortness of breath, no swelling in the legs, no rash. ALLERGIES: CODEINE. PAST MEDICAL HISTORY: As mentioned above. PAST SURGICAL HISTORY: Colonoscopy, EGDs, EGD with endoscopic ultrasound, ligation of oviducts, right total hip replacement. MEDICATIONS: The patient is on albuterol 2 puffs q.6 hours p.r.n., cyclobenzaprine 5 mg p.o. daily p.r.n., hydroxyzine 10 mg p.o. b.i.d. p.r.n., omeprazole 40 mg p.o. b.i.d., potassium chloride mEq as directed, Anoro Ellipta 1 inhalation daily. FAMILY HISTORY: Significant for father has alcoholism and mental disorder, mother has cervical cancer. SOCIAL HISTORY: Smokes 1 pack a day for the last 35 years, drinking alcohol daily, history of marijuana in the past. REVIEW OF SYSTEMS: As per HPI. Rest of review of systems are negative. PHYSICAL EXAMINATION: GENERAL: The patient is not in acute distress. VITAL SIGNS: Temperature 36.0, pulse 101, respiratory rate 22, blood pressure 91/52, oxygen 91% on room air. HEENT: Pupils equal, round and reactive to light. Oral mucosa moist. NECK: No JVD or neck masses. CARDIOVASCULAR: S1 and S2 heard. Regular rate and rhythm. No murmur, no gallop. RESPIRATORY: Normal AP diameter. No accessory muscle use. No wheezing, no crackles. ABDOMEN: Soft, bowel sounds present, nontender, no distention. CENTRAL NERVOUS SYSTEM: Cranial nerves II-XII grossly intact, nonfocal. EXTREMITIES: No edema, no erythema. LABORATORY DATA: WBC 5.3, hemoglobin 10.2, hematocrit 30.7, platelets 58. PT 14.8, INR 1.5, APTT 26.8. Sodium 141, potassium 3.2, chloride 103, bicarbonate 24, BUN 24, creatinine 0.7, serum glucose 92, calcium 8.7, total bilirubin 2.4, AST 24, ALT 30, alkaline phosphatase 106. SARS-CoV-2 PCR negative. ELECTROCARDIOGRAM: Normal sinus rhythm, rate of 92, no acute ST changes seen. ASSESSMENT AND PLAN: This is a 55-year-old female who presents with gastrointestinal bleed. 1. Gastrointestinal bleed: The patient complains of coffee-ground emesis and also black stools. The patient has a history of liver cirrhosis, history of portal gastropathy and grade II esophageal varices. The patient has ongoing alcohol abuse and tobacco abuse.Blood consent obtained. Place on gentle fluids and place on Protonix drip and also Sandostatin drip. Hemoglobin and hematocrit q.6 hours. Consult GI. Closely monitor in the telemetry floor. 2. liver cirrhosis: Thrombocytopenia mostly from cirrhosis, She is currently not taking any diuretics or lactulose. We will await Gastrointestinal input. Will do ultrasound for any ascites 3. Hypokalemia: We will replace. 4. Tobacco abuse, chronic obstructive pulmonary disease: Needs counselling. Continue home inhalers. 5. Deep venous thrombosis prophylaxis: Sequential compression devices for now. 6. Ongoing alcoholism: We will monitor for alcohol withdrawal. Place her on gabapentin protocol. Received a banana bag in the Emergency Room. Place her on IV thiamine, IV folic acid and IV Ativan p.r.n. Closely monitor for withdrawals. DISPOSITION: Closely monitor in the tele floor. Level 1, full code. Expect to discharge home and follow with family doctor. Job ID: [id number] [facility]ENTER[facility]ior
--- NOTE | 2021-03-28 10:25 | Electrocardiogram Report ---
Test Reason : Blood Pressure : / mmHG Vent. Rate : 092 BPM Atrial Rate : 092 BPM P-R Int : 148 ms QRS Dur : 090 ms QT Int : 364 ms P-R-T Axes : 082 -02 070 degrees QTc Int : 450 ms Normal sinus rhythm Normal ECG When compared with ECG of 30-OCT-2019 11:28, Premature supraventricular complexes are no longer Present [place] interval has increased T wave inversion no longer evident in Anterior leads Confirmed by Fish Dailey ([id number]) on 03/28/2021 10:25:03 AM Referred By: REFERRED SELF Confirmed By:Serge Dailey
--- NOTE | 2021-03-28 12:22 | Ultrasound Report ---
US abdomen ltd ascites CLINICAL HISTORY: 55 years-old Female presenting with ascites. TECHNIQUE: Real-time grayscale ultrasound imaging of the right upper quadrant was performed for a foc used evaluation at the site of clinical concern. COMPARISON: December 31, 2020 FINDINGS: Small amount of ascitic fluid is seen within the right upper quadrant and left lower quadrant. IMPRESSION: 1. As above. ACT 112: Negative or not required by law. Electronically signed by: Mariangel Amato DO 03/28/2021 12:21 PM
[2021-03-28 12:59] LABS: Hematocrit (blood only) 21.6 % (37-47); Hemoglobin 7.2 g/dL (12.0-16.0)
[2021-03-28] MEDS: GABAPENTIN 600 MG TAB PO SCH ×2 (13:43→19:59)
[2021-03-28] MEDS ORDERED: SODIUM CHLORIDE 0.9% 250 ML IV PRN ×2 (14:06→19:18)
--- NOTE | 2021-03-28 14:50 | Hospitalist Progress Note ---
Date of Service March 28, 2021 Assessment & Plan (1) GI bleed: Plan: Has been having coffee-ground emesis with abdominal pain and black tarry stool since the morning before admission Has history of alcoholic cirrhosis and likely having upper GI bleed secondary to variceal bleeding No more vomiting and or melena since admission We will check H&H every 6 hourly and blood transfusion if hemoglobin drops below 7 Has been on intravenous octreotide and intravenous PPI Appreciate gastroenterology input and recommendation for scope tomorrow morning Remains weak and lethargic (2) Alcoholic cirrhosis: Plan: History of alcoholic cirrhosis Started to drink recently following of her sister (3) Alcohol abuse: Plan: Ongoing alcohol abuse No signs of withdrawal (4) Transaminitis: Plan: Secondary to cirrhosis We will monitor (5) COPD (chronic obstructive pulmonary disease): Plan: Does not have any acute exacerbation Continue home medications (6) Thrombocytopenia: Plan: Letter remains low at 38 Secondary to cirrhosis and alcoholism We will monitor DVT prophylaxis SCDs Admission and Anticipated Discharge Date Admission Date: March 28, 2021 Subjective 03/28/2021 Patient was seen and examined in telemetry unit She remains generally weak and lethargic but denies any significant symptoms No more nausea and or vomiting and bowel has not moved since admission Review of Systems Review of Systems: All systems reviewed and are unremarkable except as noted below Gastrointestinal: No abdominal pain and no distention. No hematemesis and melena Physical Exam Physical Exam: Lying in bed comfortably Constitutional: + ill appearing and average body habitus Eyes: PERRL, conjunctivae normal, anicteric sclerae ENMT: external ear and nose normal, oropharynx normal Neck: trachea midline, no thyromegaly Respiratory: normal respiratory effort; no respiratory distress Cardiovascular: Rate/Rhythm: regular rate and regular rhythm; not tachycardic Heart Sounds: normal S1 and normal S2; no murmur Extremities: no edema Gastrointestinal (Abdomen): normal bowel sounds, soft, nontender, no hepatosplenomegaly No epigastric tenderness and no organomegaly Musculoskeletal: No acute arthritis in any joint Neurologic: Alert, awake and oriented x3. No focal sensory and motor deficit appreciated Lymphatic: no cervical or axillary lymphadenopathy Results & Data Results & Data ([facility]) Vital Signs (Past 12 Hours) Vital Signs Temp Pulse Pulse Resp BP BP Pulse Ox 03/28/21 11:22 37.1 C 92 H 20 92/57 L 91 03/28/21 09:20 98 H 03/28/21 07:01 96 H 03/28/21 06:40 37.4 C 102 H 20 101/62 90 03/28/21 06:00 101 H 22 86/56 L 91 03/28/21 05:30 104 H 18 89/54 L 91 03/28/21 05:00 99 H 19 85/44 L 89 L 03/28/21 04:30 99 H 18 88/48 L 90 03/28/21 04:00 105 H 19 91/52 L 03/28/21 03:30 93 H 21 100/62 97 03/28/21 03:00 97 H 20 91/47 L 95 Laboratory Results Short CBC 03/28/21 03/28/21 03/28/21 Range/Units 01:01 07:07 12:48 WBC 5.38 5.45 (4.8-10.8) K/uL Hgb 10.2 L 7.9 L 7.2 L (12.0-16.0) g/dL Hct 30.7 L 23.5 L 21.6 L (37-47) % Plt Count 58 L 38 L (130-400) K/uL BMP 03/28/21 03/28/21 01:01 07:07 Sodium 141 141 Potassium 3.2 L 3.3 L Chloride 103 109 H Carbon Dioxide 24 26 BUN 24 H 18 Creatinine 0.79 0.59 L Glucose 92 83 Calcium 8.7 7.7 L Liver Function 03/28/21 Range/Units 01:01 Total Bilirubin 2.4 H (0.2-1) mg/dl AST 74 H (15-37) U/L ALT 30 (12-78) U/L Alkaline Phosphatase 106 (45-117) U/L Albumin 3.2 L (3.4-5.0) gm/dl Medications Administered Current Inpatient Medications Albuterol (Albuterol Hfa 8 Gm Inhaler) 2 puffs INH Q6H PRN PRN Reason: Shortness Of Breath Or Wheezing Stop: 04/27/21 07:00 Cyclobenzaprine HCl (Cyclobenzaprine Hcl 5 Mg Tab) 5 mg PO DAILY PRN PRN Reason: MUSCLE SPASMS Stop: 04/27/21 07:00 Gabapentin (Gabapentin 600 Mg Tab) 600 mg PO Q6H [facility] Stop: 03/28/21 20:01 Last Admin: 03/28/21 13:43 Dose: 600 mg Documented by: Gabapentin (Gabapentin 600 Mg Tab) 600 mg PO Q8H [facility] Stop: 03/29/21 22:01 Gabapentin (Gabapentin 600 Mg Tab) 600 mg PO Q12H [facility] Stop: 03/30/21 22:01 Gabapentin (Gabapentin 600 Mg Tab) 600 mg PO Q24H [facility] Stop: 03/31/21 22:01 Hydroxyzine HCl (Hydroxyzine Hcl 10 Mg Tab) 10 mg PO Q12H PRN PRN Reason: anxiety Stop: 04/27/21 07:00 Last Admin: 03/28/21 08:12 Dose: 10 mg Documented by: Sodium Chloride (Nss 1000ml) 1,000 mls @ 75 mls/hr IV .[id number] [facility] Stop: 04/27/21 07:00 Last Admin: 03/28/21 07:58 Dose: 75 mls/hr Documented by: Pantoprazole Sodium 40 mg/ (Dextrose) 100 mls @ 20 mls/hr IV Q5H [facility] Stop: 04/27/21 07:14 Last Admin: 03/28/21 13:42 Dose: 8 mg/hr, 20 mls/hr Documented by: Octreotide Acetate 500 mcg/ (Sodium Chloride) 105 mls @ 10.5 mls/hr IV .Q10H [facility] Stop: 04/27/21 07:14 Last Admin: 03/28/21 07:58 Dose: 50 mcg/hr, 10.5 mls/hr Documented by: Thiamine HCl 100 mg/ Syringe 10 mls @ 2 mls[facility] [place] Stop: 04/27/21 08:59 Last Admin: 03/28/21 07:57 Dose: 2 mls/min Documented by: Folic Acid 1 mg/ Syringe 10 mls @ 5 mls/min IV QAM [facility] Stop: 04/27/21 08:59 Last Admin: 03/28/21 07:57 Dose: 5 mls/min Documented by: Lorazepam (Ativan) 2 mg in 4 mls @ 4 mls/min IV UD PRN; Protocol PRN Reason: EtOH Withdrawl AWSS Score 8,9 Stop: 04/27/21 07:00 Lorazepam (Ativan) 3 mg in 6 mls @ 4 mls/min IV ONCE PRN; Protocol PRN Reason: EtOH Withdrawl AWSS Score >=10 Stop: 04/27/21 07:00 Lorazepam (Ativan) 1 mg in 2 mls @ 2 mls/min IV UD PRN; Protocol PRN Reason: EtOH Withdrawl AWSS Score 6,7 Stop: 04/27/21 07:00 Sodium Chloride (Nss) 250 mls @ 15 mls/hr IV .[id number] PRN PRN Reason: For Transfusion Stop: 03/29/21 00:06 Metoprolol Tartrate (Metoprolol Tartrate 1 Mg/Ml Vial) 5 mg IV Q6 PRN PRN Reason: Hypertension Stop: 04/27/21 07:00 Nitroglycerin (Nitroglycerin Sl 0.4 Mg/Tab Tab) 0.4 mg SL UD PRN PRN Reason: Chest Pain Stop: 04/27/21 07:00 Ondansetron HCl (Ondansetron Inj 2 Mg/Ml 2 Ml Vial) 4 mg IV Q6H PRN PRN Reason: Nausea Stop: 04/27/21 07:00 Last Admin: 03/28/21 08:16 Dose: 4 mg Documented by: Umeclidinium/Vilanterol (Umeclidinium/Vilanterol 62.5/25mcg 7 Puffs/Inhaler) 1 puffs INH DAILY [facility] Stop: 04/27/21 08:59 Last Admin: 03/28/21 07:56 Dose: 1 puffs Documented by: (1) GI bleed GI bleed type/associated pathology: gastritis Gastritis type: alcoholic Qualified Code(s): K29.21 - Alcoholic gastritis with bleeding
[2021-03-28 18:59] LABS: Hemoglobin 6.9 g/dL (12.0-16.0)
[2021-03-28] MEDS ORDERED: FUROSEMIDE 20 MG in SYRINGE 0 ML IV ONE (21:30)
--- NOTE | 2021-03-28 22:02 | Anesthesiology Consultation ---
Date of Service March 28, 2021 Assessment & Plan (1) Encounter for pre-operative examination: Chart Review Chart Review: Acceptable Risk for Surgery and Patient NOT seen in Pre Admission Testing Patient had 1 unit pRBC transfused at this point and more blood available. Platelets remain low and will need to be followed. Covid neg 03/28/21 Consults Requested none History Surgery Operation Date: 03/29/21 07:30 Proposed Procedures p EGD Hemostasis - Bakari Renteria MD Height/Weight Height: 5 ft 5 in Weight: 58.967 kg Allergies Allergy/AdvReac Type Severity Reaction Status Date / Time codeine AdvReac Severe upset Verified 03/28/21 01:00 stomach Medications Home Medications Medication Instructions Recorded Confirmed Last Taken albuterol sulfate 90 mcg/actuation 2 puff INHALATION Q6H PRN 01/08/19 03/28/21 Unknown aerosol inhaler hydroxyzine HCl 10 mg tablet 10 mg PO Q12H PRN #30 tab 01/13/19 03/28/21 03/27/21 09:00 omeprazole 40 mg capsule,delayed 40 mg PO BID 10/30/19 03/28/21 03/27/21 release cyclobenzaprine 5 mg tablet 5 mg PO DAILY PRN 03/28/21 03/28/21 Unknown potassium chloride 10 mEq 10 meq PO DIRECTED 03/28/21 03/28/21 03/27/21 capsule,extended release umeclidinium 62.5 mcg-vilanterol 1 inh INHALATION DAILY 03/28/21 03/28/21 03/27/21 25 mcg/actuation powdr for inhalation (Anoro Ellipta) Active Medications Generic Name Dose Route Start Last Admin Trade Name Freq PRN Reason Stop Dose Admin Hydroxyzine HCl 10 mg 03/28/21 07:01 03/28/21 20:23 Hydroxyzine Hcl 10 Mg Tab PO 04/27/21 07:00 10 mg Q12H PRN Administration anxiety Sodium Chloride 1,000 mls @ 75 mls/hr 03/28/21 07:01 03/28/21 20:00 Nss 1000ml IV 04/27/21 07:00 75 mls/hr .[id number] STEPH[facility] Administration Pantoprazole Sodium 40 mg/ 100 mls @ 20 mls/hr 03/28/21 07:15 03/28/21 17:45 Dextrose IV 04/27/21 07:14 8 mg/hr Q5H STEPHAN 20 mls/hr Administration 8 MG/HR Octreotide Acetate 500 mcg/ 105 mls @ 10.5 mls/hr 03/28/21 07:15 03/28/21 16:18 Sodium Chloride IV 04/27/21 07:14 50 mcg/hr .Q10H STEPHAN 10.5 mls/hr Administration 50 MCG/HR Thiamine HCl 100 mg/ Syringe 10 mls @ 2 mls/min 03/28/21 09:00 03/28/21 07:57 IV 04/27/21 08:59 2 mls/min QAM [facility] Administration Folic Acid 1 mg/ Syringe 10 mls @ 5 mls/min 03/28/21 09:00 03/28/21 07:57 IV 04/27/21 08:59 5 mls/min QAM [facility] Administration Ondansetron HCl 4 mg 03/28/21 07:01 03/28/21 16:18 Ondansetron Inj 2 Mg/Ml 2 Ml Vial IV 04/27/21 07:00 4 mg Q6H PRN Administration Nausea Umeclidinium/Vilanterol 1 puffs 03/28/21 09:00 03/28/21 07:56 Umeclidinium/Vilanterol 62.5/25mcg 7 Puffs/Inhaler INH 04/27/21 08:59 1 puffs DAILY [facility] Administration Past Medical History Medical History (Updated 03/28/21 @ 22:03 by Darwin Browning MD) Alcohol abuse Alcoholic cirrhosis Anxiety and depression Cirrhosis of liver (11/21/12) treated with harvoni in [facility] pt is now negative COPD (chronic obstructive pulmonary disease) Hepatitis C Hypokalemia Portal hypertension Thrombocytopenia Transaminitis Past Family History Family History Mother Cervical cancer Past Surgical History Surgical History History of total right hip replacement History of tubal ligation EGD 09/2019: IV sedation Social History Smoking Status: Current every day smoker tobacco type: cigarettes Smoking cigarettes per day: 15 Do You Dip or Chew Tobacco: No Hx Alcohol Use: Yes Alcohol type: beer and hard liquor alcohol intake frequency: 3 or more drinks per day Hx Substance Use: No substance use type: does not use Last Used Substance: Days (ago) Last Used Substance Other:: last month Physical Exam Vital Signs Last Vital Signs Temp 37.0 C 03/28/21 20:58 Pulse 70 03/28/21 20:58 Resp 17 03/28/21 20:58 BP 90/53 L 03/28/21 20:58 Pulse Ox 99 03/28/21 20:58 Testing Laboratory Results 03/28/21 18:44 03/28/21 07:07 PT 14.8 Seconds (9.0-12.0) H 03/28/21 01:01 INR 1.5 (0.9-1.1) H 03/28/21 01:01 APTT 26.8 Seconds (21.0-31.0) 03/28/21 01:01 Blood Type B Positive 03/28/21 01:06 Antibody Screen NEGATIVE 03/28/21 01:06 Electrocardiogram Date: 03/28/21 DICTATED BY: Fish Dailey MD Test Reason : Blood Pressure : / mmHG Vent. Rate : 092 BPM Atrial Rate : 092 BPM P-R Int : 148 ms QRS Dur : 090 ms QT Int : 364 ms P-R-T Axes : 082 -02 070 degrees QTc Int : 450 ms Normal sinus rhythm Normal ECG When compared with ECG of 30-OCT-2019 11:28, Premature supraventricular complexes are no longer Present [place] interval has increased T wave inversion no longer evident in Anterior leads Confirmed by Fish Dailey ([id number]) on 03/28/2021 10:25:03 AM
[2021-03-28] MEDS: LORazepam 1 MG/2 ML VIAL IV PRN (23:21)
[2021-03-29] MEDS: PANTOprazole 40 MG in DEXTROSE 5% 100 ML IV SCH ×5 (00:01→20:00)
[2021-03-29] MEDS: OCTREOTIDE ACETATE 500 MCG in 0.9 % SODIUM CHLORIDE 100 ML IV SCH ×3 (02:24→14:32)
[2021-03-29 05:50] LABS: Albumin Level 2.4 gm/dl (3.4-5.0); BUN Creatinine Ratio 20.1 (10-20); Creatinine Clr Calc Pharmacy 69.8 ml/min; Est GFR (African American) 94.1 ml/min; Est GFR (Non-African American) 81.2 ml/min; Magnesium 1.7 mg/dl (1.8-2.4); Potassium 3.6 mmol/L (3.5-5.1)
[2021-03-29 05:54] LABS: Albumin Globulin Ratio 0.7 (0.9-2); Bilirubin,Total 3.8 mg/dl (0.2-1); Globulin 3.4 gm/dl (2.5-4.0); Total Protein 5.8 gm/dl (6.4-8.2)
[2021-03-29 06:26] LABS: Hematocrit (blood only) 30.4 % (37-47); Hemoglobin 9.9 g/dL (12.0-16.0); Mean Corpuscular Hemoglobin 26.9 pg (25-34); Mean Corpuscular Hgb Conc 32.6 g/dL (32-36); Mean Corpuscular Volume 82.6 fL (80-100); Platelet Count 28 K/uL (130-400); RDW Coefficient of Variation 21.3 % (11.5-14.5); RDW Standard Deviation 64.4 fL (36.4-46.3); Red Blood Count 3.68 M/uL (4.2-5.4); White Blood Count 2.39 K/uL (4.8-10.8)
[2021-03-29 06:27] LABS: Anisocytosis Present; Basophils # (auto) 0.01 K/uL (0-0.2); Basophils % (auto) 0.4 %; Eosinophils # (auto) 0.08 K/uL (0-0.5); Eosinophils % (auto) 3.3 %; Lymphocytes # (auto) 0.99 K/uL (1.2-3.4); Lymphocytes % (auto) 41.4 %; Monocytes % (auto) 25.1 %; Neutrophils # (auto) 0.71 K/uL (1.4-6.5); Neutrophils % (auto) 29.8 %
[2021-03-29] MEDS: GABAPENTIN 600 MG TAB PO SCH ×3 (06:46→21:40)
[2021-03-29] MEDS ORDERED: MAGNESIUM SULFATE / D5W 1 GM/100 ML BAG IV ONE (07:15)
--- NOTE | 2021-03-29 07:37 | History & Physical Bridge Note ---
Date of Service March 29, 2021 History & Physical Bridge Note I have examined the patient, reviewed the History & Physical and in the interval since the performance of the History & Physical I have noted the following changes of clinical significance: no changes noted Proceed with EGD. risks/benefits and procedure discussed with patient, who agrees to proceed
[2021-03-29] MEDS ORDERED: LIDOCAINE 2% 2 ML VIAL/AMP(20MG/ML) INFIL ONE (07:54)
[2021-03-29] MEDS ORDERED: PROPOFOL IV EMULSION 10 MG/ML 20 ML VIAL IV ONE (07:54)
[2021-03-29] MEDS ORDERED: ONDANSETRON INJ 2 MG/ML 2 ML VIAL ONE (07:56)
--- NOTE | 2021-03-29 08:11 | Procedure Note ---
Procedure Note Date of Service March 29, 2021 Note GI brief note EGD findings: large esophageal varices with stigmata of recent bleeding. banded x 3. Severe PHG, no gastric varices nor duodenal varices. Recs: protonix 40 mg BID octreotide drip for 5 days total antibiotics for sepsis prophylaxis in patient with UGI bleed for total 7 day course (can use ceftriaxone 1 g daily) strict NPO for the next 24 hours, avoid NG tube insertion if stable tomorrow morning can advance diet to clears supportive care repeat EGD in 4 weeks for banding/variceal eradication Bakari Renteria MD Gastroenterology Coding
--- NOTE | 2021-03-29 08:19 | GI REPORT ---
Patient Name: Jeni Zhu Procedure Date: 03/29/2021 7:12 AM Date of : 1965 Admit Type: Inpatient Age: 55 Gender: Female Attending MD: Bakari Renteria MD Procedure: Upper GI endoscopy Providers: Bakari Renteria MD Referring MD: Joselin Blackwell Indications: Hematemesis Medicines: Monitored Anesthesia Care Complications: No immediate complications. Estimated blood loss: None. Estimated Blood Loss: Estimated blood loss: none. Procedure: Pre-Anesthesia Assessment: - Prior Anticoagulants: The patient has taken no previous anticoagulant or antiplatelet agents. - ASA Grade Assessment: III - A patient with severe systemic disease. After obtaining informed consent, the endoscope was passed under direct vision. Throughout the procedure, the patient's blood pressure, pulse, and oxygen saturations were monitored continuously. The Endoscope was introduced through the mouth, and advanced to the second part of duodenum. The upper GI endoscopy was accomplished without difficulty. The patient tolerated the procedure well. Findings: Two columns of large (> 5 mm) varices with stigmata of recent bleeding were found in the mid esophagus and in the distal esophagus. Three bands were successfully placed with complete eradication, resulting in deflation of varices. There was no bleeding at the end of the procedure. Estimated blood loss: none. Severe portal hypertensive gastropathy was found in the stomach. No evidence of gastric varices. The duodenal bulb and second portion of the duodenum were normal. Impression: - Large (> 5 mm) esophageal varices with stigmata of recent bleeding. Completely eradicated. Banded. - Portal hypertensive gastropathy. - Normal duodenal bulb and second portion of the duodenum. - No specimens collected. Recommendation: - NPO today strict for 24 hours. -Avoid NG tube insertion -octreotide drip for 5 days total -protonix 40 mg IV BID -7 day total course of antbiotics for sepsis ppx (can use ceftriaxone 1 g daily) -supportive care -if stable tomorrow morning can advance to clear liquid diet -repeat EGD in 4 weeks for variceal eradication - Return patient to [facility] for ongoing care. Bakari Renteria MD 03/29/2021 8:19:27 AM This report has been signed electronically. Note Initiated On: 03/29/2021 7:12 AM Number of Addenda: 0 I attest to the content of the Intraoperative Record and orders documented therein, exceptions below {[id number]}
--- NOTE | 2021-03-29 08:29 | Anesthesiology Progress Note ---
Date of Service March 29, 2021 Anesthesia Post Procedure Vital Signs Vital Signs: Temp Pulse Pulse Pulse Resp BP BP 03/29/21 08:20 36.9 C 78 16 03/29/21 08:10 37.0 C 98 H 16 03/29/21 03:03 37.0 C 75 18 113/75 03/29/21 02:22 75 03/29/21 00:01 37.1 C 80 18 123/62 03/28/21 23:29 37.0 C 72 18 121/71 03/28/21 22:59 37.0 C 78 18 109/72 03/28/21 22:44 37.0 C 83 18 111/64 03/28/21 22:41 37.0 C 88 19 111/64 03/28/21 22:26 36.9 C 75 16 89/52 L 03/28/21 22:12 36.9 C 77 17 90/60 L 03/28/21 21:58 36.9 C 75 17 100/59 L 03/28/21 20:58 37.0 C 70 17 90/53 L 03/28/21 20:28 37.0 C 78 18 110/59 L 03/28/21 20:13 37.0 C 75 18 113/58 L 03/28/21 20:05 37.0 C 82 18 111/65 03/28/21 19:57 36.9 C 83 19 93/64 L 03/28/21 19:08 36.8 C 88 18 104/62 03/28/21 15:00 90 03/28/21 14:42 37 C 95 H 16 105/58 L 03/28/21 11:22 37.1 C 92 H 20 92/57 L 03/28/21 09:20 98 H BP Pulse Ox 03/29/21 08:20 131/78 95 03/29/21 08:10 125/78 97 03/29/21 03:03 96 03/29/21 02:22 03/29/21 00:01 96 03/28/21 23:29 95 03/28/21 22:59 96 03/28/21 22:44 94 03/28/21 22:41 90 03/28/21 22:26 95 03/28/21 22:12 99 03/28/21 21:58 99 03/28/21 20:58 99 03/28/21 20:28 96 03/28/21 20:13 96 03/28/21 20:05 94 03/28/21 19:57 94 03/28/21 19:08 95 03/28/21 15:00 03/28/21 14:42 94 03/28/21 11:22 91 03/28/21 09:20 Transfer of Care Handoff Completed per policy Notes Mental Status: alert / awake / arousable and participated in evaluation Patient Amnestic to Procedure: Yes Nausea / Vomiting: adequately controlled Pain: adequately controlled Airway Patency, RR, SpO2: stable & adequate BP & HR: stable & adequate Hydration State: stable & adequate Anesthetic Complications: no major complications apparent
[2021-03-29] MEDS: LORazepam 1 MG/2 ML VIAL IV PRN ×2 (08:50→13:15)
[2021-03-29] MEDS: UMECLIDINIUM/VILANTEROL 62.5/25MCG 7 PUFFS/INHALER INH SCH (08:50)
[2021-03-29] MEDS: FOLIC ACID 1 MG in SYRINGE 9.8 ML IV SCH (08:51)
[2021-03-29] MEDS: THIAMINE HCL 100 MG in SYRINGE 9 ML IV SCH (08:51)
[2021-03-29] MEDS: SODIUM CHLORIDE 0.9% 1000ML 1,000 ML IV SCH ×2 (09:21→21:40)
--- NOTE | 2021-03-29 13:29 | Hospitalist Progress Note ---
Date of Service March 29, 2021 Assessment & Plan (1) GI bleed: Plan: Has been having coffee-ground emesis with abdominal pain and black tarry stool since the morning before admission Has history of alcoholic cirrhosis and likely having upper GI bleed secondary to variceal bleeding No more vomiting and or melena since admission We will check H&H every 6 hourly and blood transfusion if hemoglobin drops below 7 Has been on intravenous octreotide and intravenous PPI Hemoglobin dropped last evening below 7 and received 2 units of blood transfusion. Hemoglobin went up more than 9 as of this morning Esophageal variceal bleeding Status post EGD with successful banding of 2 large esophageal varices in mid esophagus She remains hungry but will be kept n.p.o. We will continue octreotide drip for a total of 5 days with IV Protonix and 7 days course of antibiotic She will need repeat EGD in 4 weeks (2) Alcoholic cirrhosis: Plan: History of alcoholic cirrhosis Started to drink recently following of her sister (3) Alcohol abuse: Plan: Ongoing alcohol abuse No signs of withdrawal (4) Transaminitis: Plan: Secondary to cirrhosis We will monitor-LFTs are not any better (5) COPD (chronic obstructive pulmonary disease): Plan: Does not have any acute exacerbation Continue home medications (6) Thrombocytopenia: Plan: Letter remains low at 38 Secondary to cirrhosis and alcoholism We will monitor DVT prophylaxis SCDs Admission and Anticipated Discharge Date Admission Date: March 28, 2021 Subjective 03/28/2021 Patient was seen and examined in telemetry unit She remains generally weak and lethargic but denies any significant symptoms No more nausea and or vomiting and bowel has not moved since admission 03/29/2021 Patient was seen and examined in telemetry unit He is a status post 2 unit of blood transfusion and the hemoglobin remains more than 9 She is a status post EGD and ligation of 2 large esophageal varices Has been feeling hungry but denies any other symptoms Review of Systems Review of Systems: All systems reviewed and are unremarkable except as noted below Gastrointestinal: No abdominal pain and no distention. No hematemesis and melena Physical Exam Physical Exam: Lying in bed comfortably Constitutional: + ill appearing and average body habitus Eyes: PERRL, conjunctivae normal, anicteric sclerae ENMT: external ear and nose normal, oropharynx normal Neck: trachea midline, no thyromegaly Respiratory: normal respiratory effort; no respiratory distress Cardiovascular: Rate/Rhythm: regular rate and regular rhythm; not tachycardic Heart Sounds: normal S1 and normal S2; no murmur Extremities: no edema Gastrointestinal (Abdomen): normal bowel sounds, soft, nontender, no hepatosplenomegaly Musculoskeletal: No acute arthritis in any joint Neurologic: Alert, awake and oriented x3 Lymphatic: no cervical or axillary lymphadenopathy Results & Data Results & Data ([facility]) Vital Signs (Past 12 Hours) Vital Signs Temp Pulse Pulse Pulse Resp BP BP 03/29/21 12:00 37 C 75 18 123/74 03/29/21 10:25 36.8 C 85 18 114/68 03/29/21 09:55 36.8 C 82 18 103/65 03/29/21 09:25 36.6 C 73 18 129/83 03/29/21 09:10 36.7 C 79 18 126/67 03/29/21 08:55 36.7 C 80 18 121/76 03/29/21 08:40 36.6 C 72 18 124/78 03/29/21 08:30 36.9 C 78 16 126/72 03/29/21 08:20 36.9 C 78 16 131/78 03/29/21 08:10 37.0 C 98 H 16 125/78 03/29/21 03:03 37.0 C 75 18 113/75 03/29/21 02:22 75 Pulse Ox 03/29/21 12:00 95 03/29/21 10:25 95 03/29/21 09:55 95 03/29/21 09:25 96 03/29/21 09:10 95 03/29/21 08:55 95 03/29/21 08:40 93 03/29/21 08:30 95 03/29/21 08:20 95 03/29/21 08:10 97 03/29/21 03:03 96 03/29/21 02:22 Laboratory Results Short CBC 03/28/21 03/29/21 Range/Units 18:44 05:21 WBC 2.39 L (4.8-10.8) K/uL Hgb 6.9 L* 9.9 L D (12.0-16.0) g/dL Hct 21.0 L 30.4 L (37-47) % Plt Count 28 L* (130-400) K/uL BMP 03/29/21 05:21 Sodium 143 Potassium 3.6 Chloride 112 H Carbon Dioxide 29 BUN 16 Creatinine 0.81 Glucose 90 Calcium 7.0 L Liver Function 03/29/21 Range/Units 05:21 Total Bilirubin 3.8 H D (0.2-1) mg/dl AST 95 H (15-37) U/L ALT 28 (12-78) U/L Alkaline Phosphatase 76 (45-117) U/L Albumin 2.4 L (3.4-5.0) gm/dl Medications Administered Current Inpatient Medications Albuterol (Albuterol Hfa 8 Gm Inhaler) 2 puffs INH Q6H PRN PRN Reason: Shortness Of Breath Or Wheezing Stop: 04/27/21 07:00 Cyclobenzaprine HCl (Cyclobenzaprine Hcl 5 Mg Tab) 5 mg PO DAILY PRN PRN Reason: MUSCLE SPASMS Stop: 04/27/21 07:00 Gabapentin (Gabapentin 600 Mg Tab) 600 mg PO Q8H [facility] Stop: 03/29/21 22:01 Last Admin: 03/29/21 06:46 Dose: 600 mg Documented by: Gabapentin (Gabapentin 600 Mg Tab) 600 mg PO Q12H [facility] Stop: 03/30/21 22:01 Gabapentin (Gabapentin 600 Mg Tab) 600 mg PO Q24H [facility] Stop: 03/31/21 22:01 Hydroxyzine HCl (Hydroxyzine Hcl 10 Mg Tab) 10 mg PO Q12H PRN PRN Reason: anxiety Stop: 04/27/21 07:00 Last Admin: 03/28/21 20:23 Dose: 10 mg Documented by: Sodium Chloride (Nss 1000ml) 1,000 mls @ 75 mls/hr IV .[id number] [facility] Stop: 04/27/21 07:00 Last Admin: 03/29/21 09:21 Dose: 75 mls/hr Documented by: Pantoprazole Sodium 40 mg/ (Dextrose) 100 mls @ 20 mls/hr IV Q5H [facility] Stop: 04/27/21 07:14 Last Admin: 03/29/21 09:21 Dose: 8 mg/hr, 20 mls/hr Documented by: Thiamine HCl 100 mg/ Syringe 10 mls @ 2 mls/min IV QAM [facility] Stop: 04/27/21 08:59 Last Admin: 03/29/21 08:51 Dose: 2 mls/min Documented by: Folic Acid 1 mg/ Syringe 10 mls @ 5 mls/min IV QAM [facility] Stop: 04/27/21 08:59 Last Admin: 03/29/21 08:51 Dose: 5 mls/min Documented by: Lorazepam (Ativan) 2 mg in 4 mls @ 4 mls/min IV UD PRN; Protocol PRN Reason: EtOH Withdrawl AWSS Score 8,9 Stop: 04/27/21 07:00 Lorazepam (Ativan) 3 mg in 6 mls @ 4 mls/min IV ONCE PRN; Protocol PRN Reason: EtOH Withdrawl AWSS Score >=10 Stop: 04/27/21 07:00 Lorazepam (Ativan) 1 mg in 2 mls @ 2 mls/min IV UD PRN; Protocol PRN Reason: EtOH Withdrawl AWSS Score 6,7 Stop: 04/27/21 07:00 Last Admin: 03/29/21 13:15 Dose: 2 mls/min Documented by: Octreotide Acetate 500 mcg/ (Sodium Chloride) 100.5 mls @ 10.05 mls/hr IV .Q10H [facility] Stop: 04/28/21 13:14 Metoprolol Tartrate (Metoprolol Tartrate 1 Mg/Ml Vial) 5 mg IV Q6 PRN PRN Reason: Hypertension Stop: 04/27/21 07:00 Nitroglycerin (Nitroglycerin Sl 0.4 Mg/Tab Tab) 0.4 mg SL UD PRN PRN Reason: Chest Pain Stop: 04/27/21 07:00 Ondansetron HCl (Ondansetron Inj 2 Mg/Ml 2 Ml Vial) 4 mg IV Q6H PRN PRN Reason: Nausea Stop: 04/27/21 07:00 Last Admin: 03/28/21 16:18 Dose: 4 mg Documented by: Umeclidinium/Vilanterol (Umeclidinium/Vilanterol 62.5/25mcg 7 Puffs/Inhaler) 1 puffs INH DAILY [facility] Stop: 04/27/21 08:59 Last Admin: 03/29/21 08:50 Dose: 1 puffs Documented by: (1) GI bleed GI bleed type/associated pathology: gastritis Gastritis type: alcoholic Qualified Code(s): K29.21 - Alcoholic gastritis with bleeding
[2021-03-30] MEDS: hydrOXYzine HCl 10 MG TAB PO PRN ×2 (00:18→19:52)
[2021-03-30] MEDS: OCTREOTIDE ACETATE 500 MCG in 0.9 % SODIUM CHLORIDE 100 ML IV SCH ×3 (01:12→19:47)
[2021-03-30] MEDS: PANTOprazole 40 MG in DEXTROSE 5% 100 ML IV SCH ×5 (01:54→19:46)
[2021-03-30] MEDS ORDERED: LORazepam 0.5 MG TAB PO STA (06:30)
[2021-03-30 07:34] LABS: Mean Corpuscular Hgb Conc 32.3 g/dL (32-36); Mean Corpuscular Volume 83.6 fL (80-100); Platelet Count 25 K/uL (130-400); RDW Coefficient of Variation 21.2 % (11.5-14.5); RDW Standard Deviation 65.5 fL (36.4-46.3); Red Blood Count 3.71 M/uL (4.2-5.4); White Blood Count 2.35 K/uL (4.8-10.8)
[2021-03-30 07:35] LABS: Anisocytosis Present; Basophils # (auto) 0.01 K/uL (0-0.2); Basophils % (auto) 0.4 %; Eosinophils # (auto) 0.07 K/uL (0-0.5); Hypochromasia Present; Immature Granulocytes # (auto) 0.01 K/uL (0.00-0.02); Immature Granulocytes % (auto) 0.4 %; Lymphocytes % (auto) 21.3 %; Monocytes # (auto) 0.47 K/uL (0.11-0.59); Neutrophils # (auto) 1.29 K/uL (1.4-6.5); Neutrophils % (auto) 54.9 %; Platelet Estimate SIGNIFIC DECREASED (Normal)
[2021-03-30 07:50] LABS: BUN Creatinine Ratio 17.1 (10-20); Calcium 6.9 mg/dl (8.5-10.1); Creatinine Clr Calc Pharmacy 92.7 ml/min; Est GFR (African American) 117.5 ml/min; Est GFR (Non-African American) 101.3 ml/min; Potassium 3.2 mmol/L (3.5-5.1)
--- NOTE | 2021-03-30 08:19 | Gastroenterology Progress Note ---
Date of Service March 30, 2021 Assessment & Plan (1) GI bleed: Plan: 55 year old female with history of HCV (treated w [facility], SVR attained), ETOH cirrhosis, w Grade II esophageal varices, portal HTN, ascites admitted w/ coffee ground emesis s/p EGD w/ stigmata of recent bleeding episodes, banded esophageal varices. She has remained clinically stable since EGD w/ banding, no further coffee ground emesis or melena episodes w/ stable VS and HGB - Can advance diet as tolerated, please start with clear liquids this AM - Avoid NG tube insertion - octreotide drip for 3 days total - protonix 40 mg IV BID - 7 day total course of antibiotics for sepsis ppx (can use ceftriaxone 1 g daily) - Repeat EGD in 4 weeks for variceal eradication - Continue Aldactone 25 mg daily - No lasix - BB not recommended by pulmonary team due to overlap asthma/COPD and ongoing use of MORIAH/LABA - Last Colonoscopy:2016 showed int hemorrhoids, sigmoid diverticulosis; due for repeat in 2026 - Hep A immunity:Immune - Hep B immunity:Immune - HCC screening [id number] (u/s; AFP):09/2019 MRI liver at [facility] - no liver lesion mentioned; AFP 10/30/2019 normal. - Encouraged to abstain from ETOH, illicit drugs, APAP no more than 2g daily - Low salt (2g) daily - Transplant evaluation pendingMELD, last ETOH use was 03/2021 - Colace 100 mg twice daily - Miralax 1 capful 1-2 times daily Thank you for allowing us to participate in the care of this patient. Please call with any acute changes, questions or concerns. Please see addendum below with additional recommendation from my supervising physician. Admission and Anticipated Discharge Date Admission Date: March 28, 2021 Supervising Physician Co-Signing Physician Notes Attg add: I interviewed and examined pt, reviewed chart and labs. Pt without bleeding today, no complaints. No volume overload, encephalopathy. Labs stable, including gb and creat. Recommendations as above. Subjective Pt was seen and evaluated, chart reviewed. Awake, alert and answering questions appropriately. Notes she resumed ETOH about 1 pint a day for two weeks after as coping with family circumstances Since EGD w/ banding, some nausea but no vomiting. No BMs since EGD Diagnosis:HCV/ETOH last ETOH use was March 2021 Decompensations: Varices: BB contraindicated per pulmonary, banded 03/29/21 Portal HTN: severe BB contraindicated per pulmonary Ascites/Edema: Lasix DC'd for hypokalemia. On Spironolactone 100mg daily + KCl 10meq daily HE: none Screenings: . MELD-Na score: 10 at 12/16/2020 9:29 AM Calculated from: Serum Creatinine: 0.7 mg/dL (Rounded to 1 mg/dL) at 12/16/2020 9:29 AM Serum Sodium: 139 mmol/L (Rounded to 137 mmol/L) at 12/16/2020 9:29 AM Total Bilirubin: 0.9 mg/dL (Rounded to 1 mg/dL) at 12/16/2020 9:29 AM INR(ratio): 1.41 at 12/16/2020 9:29 AM Age: 55 years HCC: February Varices: 2020 Immunizations: unknown EGD 2020: Large (> 5 mm) esophageal varices with stigmata of recent bleeding. Completely eradicated. Banded. - Portal hypertensive gastropathy. - Normal duodenal bulb and second portion of the duodenum. - No specimens collected. EGD 2020: Grade II esophageal varices with no bleeding and no stigmata of recent bleeding. - Portal hypertensive gastropathy. - Normal examined duodenum. - No specimens collected. ABD US 2019:Cirrhosis of the liver. No hepatic mass is demonstrated. Small right upper quadrant ascites. EUS 2012:fatty liver, gallbladder wall 4mm, ? Alvarado's esophagus, Grade I esophageal varices EGD/Colonoscopy 2016: Grade I varices, portal HTN; diverticulosis, int hem orrhoids. EGD 2019: showed hiatal hernia, grade 2 varices w/o stigmata of bleeding, severe portal gastropathy MRCP 2020: non diagnostic for biliary obstruction LE duplex 2020:Patent right lower extremity venous system. No evidence of acute deep venous thrombosis of the right lower extremity Obstructive series 2020:Right pleural effusion.Mild patchy bibasilar airspace opacities. This may represent atelectasis or pneumonia. Nonobstructive bowel gas pattern Results & Data ([facility]) Vital Signs (Past 12 Hours) Vital Signs Temp Pulse Resp BP Pulse Ox 03/30/21 07:30 36.8 C 84 18 110/66 99 03/30/21 03:30 36.9 C 76 16 106/63 95 03/29/21 22:59 36.9 C 87 18 125/72 96 Diagnostic Findings 03/30/21 03/30/21 Range/Units 06:43 06:43 WBC 2.35 L (4.8-10.8) K/uL RBC 3.71 L (4.2-5.4) M/uL Hgb 10.0 L (12.0-16.0) g/dL Hct 31.0 L (37-47) % MCV 83.6 (80-100) fL MCH 27.0 (25-34) pg MCHC 32.3 (32-36) g/dL RDW Std Deviation 65.5 H (36.4-46.3) fL RDW Coeff of Radha 21.2 H (11.5-14.5) % Plt Count 25 L* (130-400) K/uL Immature Gran % (Auto) 0.4 % Neut % (Auto) 54.9 % Lymph % (Auto) 21.3 % [place] % (Auto) 20.0 % Eos % (Auto) 3.0 % Baso % (Auto) 0.4 % Neut # (Auto) 1.29 L (1.4-6.5) K/uL Lymph # (Auto) 0.50 L (1.2-3.4) K/uL [place] # (Auto) 0.47 (0.11-0.59) K/uL Eos # (Auto) 0.07 (0-0.5) K/uL Baso # (Auto) 0.01 (0-0.2) K/uL Immature Gran # (Auto) 0.01 (0.00-0.02) K/uL Platelet Estimate SIGNIFIC DECREASED (Normal) Hypochromasia Present Anisocytosis Present Sodium 138 (136-145) mmol/L Potassium 3.2 L (3.5-5.1) mmol/L Chloride 109 H (98-107) mmol/L Carbon Dioxide 24 (21-32) mmol/L Anion Gap 5.0 (3-11) BUN 10 D (7-18) mg/dl Creatinine 0.61 (0.6-1.2) mg/dl Est Cr Clr Drug Dosing 92.7 ml/min Est GFR ( Amer) 117.5 ml/min Est GFR (Non-Af Amer) 101.3 ml/min BUN/Creatinine Ratio 17.1 (10-20) Glucose 95 (70-99) mg/dl Calcium 6.9 L (8.5-10.1) mg/dl (1) GI bleed GI bleed type/associated pathology: gastritis Gastritis type: alcoholic Qualified Code(s): K29.21 - Alcoholic gastritis with bleeding
[2021-03-30] MEDS: UMECLIDINIUM/VILANTEROL 62.5/25MCG 7 PUFFS/INHALER INH SCH (09:39)
[2021-03-30] MEDS: THIAMINE HCL 100 MG in SYRINGE 9 ML IV SCH (09:40)
[2021-03-30] MEDS: FOLIC ACID 1 MG in SYRINGE 9.8 ML IV SCH (09:40)
[2021-03-30] MEDS: GABAPENTIN 600 MG TAB PO SCH ×2 (09:40→22:47)
[2021-03-30] MEDS: POTASSIUM CHLORIDE / WTR 10 MEQ/100 ML PLCT IV SCH ×2 (09:58→10:58)
[2021-03-30] MEDS: SODIUM CHLORIDE 0.9% 1000ML 1,000 ML IV SCH (10:59)
--- NOTE | 2021-03-30 15:54 | Hospitalist Progress Note ---
Date of Service March 30, 2021 Assessment & Plan (1) GI bleed: Plan: Has been having coffee-ground emesis with abdominal pain and black tarry stool since the morning before admission Has history of alcoholic cirrhosis and likely having upper GI bleed secondary to variceal bleeding No more vomiting and or melena since admission We will check H&H every 6 hourly and blood transfusion if hemoglobin drops below 7 Has been on intravenous octreotide and intravenous PPI Hemoglobin dropped last evening below 7 and received 2 units of blood transfusion. Hemoglobin went up more than 9 as of this morning Remains reasonably stable following EGD and banding of varices Esophageal variceal bleeding Status post EGD with successful banding of 2 large esophageal varices in mid esophagus She remains hungry but will be kept n.p.o. We will continue octreotide drip for a total of 5 days with IV Protonix and 7 days course of antibiotic She will need repeat EGD in 4 weeks Remains stable and will continue current management (2) Alcoholic cirrhosis: Plan: History of alcoholic cirrhosis Started to drink recently following of her sister Hepatitis C positive HCC screening [id number] (u/s; AFP): 09/2019 MRI liver at [facility] - no liver lesion mentioned; AFP 10/30/2019 normal. Transplant evaluation pending MELD, last ETOH use was 03/2021 (3) Alcohol abuse: Plan: Ongoing alcohol abuse No signs of withdrawal Advised to quit drinking (4) Transaminitis: Plan: Secondary to cirrhosis We will monitor-LFTs are not any better (5) COPD (chronic obstructive pulmonary disease): Plan: Does not have any acute exacerbation Continue home medications (6) Thrombocytopenia: Plan: Letter remains low at 38 Secondary to cirrhosis and alcoholism We will monitor DVT prophylaxis SCDs Admission and Anticipated Discharge Date Admission Date: March 28, 2021 Subjective 03/28/2021 Patient was seen and examined in telemetry unit She remains generally weak and lethargic but denies any significant symptoms No more nausea and or vomiting and bowel has not moved since admission 03/29/2021 Patient was seen and examined in telemetry unit He is a status post 2 unit of blood transfusion and the hemoglobin remains more than 9 She is a status post EGD and ligation of 2 large esophageal varices Has been feeling hungry but denies any other symptoms 03/30/2021 The patient was seen and examined in telemetry unit She has been feeling much better this morning and denies any nausea and or vomiting She has been tolerating clears orally Review of Systems Review of Systems: All systems reviewed and are unremarkable except as noted below Gastrointestinal: No abdominal pain and no distention. No hematemesis and melena Physical Exam Physical Exam: Lying in bed comfortably Constitutional: + ill appearing and average body habitus Eyes: PERRL, conjunctivae normal, anicteric sclerae ENMT: external ear and nose normal, oropharynx normal Neck: trachea midline, no thyromegaly Respiratory: normal respiratory effort; no respiratory distress Cardiovascular: Rate/Rhythm: regular rate and regular rhythm; not tachycardic Heart Sounds: normal S1 and normal S2; no murmur Extremities: no edema Gastrointestinal (Abdomen): normal bowel sounds, soft, nontender, no hepatosplenomegaly Musculoskeletal: No acute arthritis in any joint Neurologic: Alert, awake and oriented x3 Lymphatic: no cervical or axillary lymphadenopathy Results & Data Results & Data ([facility]) Vital Signs (Past 12 Hours) Vital Signs Temp Pulse Pulse Resp BP Pulse Ox 03/30/21 15:45 36.9 C 82 18 100/55 L 92 03/30/21 11:06 36.7 C 69 18 116/76 94 03/30/21 07:39 73 03/30/21 07:30 36.8 C 84 18 110/66 99 Laboratory Results Short CBC 03/30/21 Range/Units 06:43 WBC 2.35 L (4.8-10.8) K/uL Hgb 10.0 L (12.0-16.0) g/dL Hct 31.0 L (37-47) % Plt Count 25 L* (130-400) K/uL BMP 03/30/21 06:43 Sodium 138 Potassium 3.2 L Chloride 109 H Carbon Dioxide 24 BUN 10 D Creatinine 0.61 Glucose 95 Calcium 6.9 L Medications Administered Current Inpatient Medications Albuterol (Albuterol Hfa 8 Gm Inhaler) 2 puffs INH Q6H PRN PRN Reason: Shortness Of Breath Or Wheezing Stop: 04/27/21 07:00 Cyclobenzaprine HCl (Cyclobenzaprine Hcl 5 Mg Tab) 5 mg PO DAILY PRN PRN Reason: MUSCLE SPASMS Stop: 04/27/21 07:00 Gabapentin (Gabapentin 600 Mg Tab) 600 mg PO Q12H [facility] Stop: 03/30/21 22:01 Last Admin: 03/30/21 09:40 Dose: 600 mg Documented by: Gabapentin (Gabapentin 600 Mg Tab) 600 mg PO Q24H [facility] Stop: 03/31/21 22:01 Hydroxyzine HCl (Hydroxyzine Hcl 10 Mg Tab) 10 mg PO Q12H PRN PRN Reason: anxiety Stop: 04/27/21 07:00 Last Admin: 03/30/21 00:18 Dose: 10 mg Documented by: Sodium Chloride (Nss 1000ml) 1,000 mls @ 75 mls/hr IV .[id number] [facility] Stop: 04/27/21 07:00 Last Admin: 03/30/21 10:59 Dose: 75 mls/hr Documented by: Pantoprazole Sodium 40 mg/ (Dextrose) 100 mls @ 20 mls/hr IV Q5H [facility] Stop: 04/27/21 07:14 Last Admin: 03/30/21 15:12 Dose: 8 mg/hr, 20 mls/hr Documented by: Thiamine HCl 100 mg/ Syringe 10 mls @ 2 mls/[facility] [facility] [place]: 04/27/21 08:59 Last Admin: 03/30/21 09:40 Dose: 2 mls/min Documented by: Folic Acid 1 mg/ Syringe 10 mls @ 5 mls/min IV QAM [facility] Stop: 04/27/21 08:59 Last Admin: 03/30/21 09:40 Dose: 5 mls/min Documented by: Lorazepam (Ativan) 2 mg in 4 mls @ 4 mls/min IV UD PRN; Protocol PRN Reason: EtOH Withdrawl AWSS Score 8,9 Stop: 04/27/21 07:00 Lorazepam (Ativan) 3 mg in 6 mls @ 4 mls/min IV ONCE PRN; Protocol PRN Reason: EtOH Withdrawl AWSS Score >=10 Stop: 04/27/21 07:00 Lorazepam (Ativan) 1 mg in 2 mls @ 2 mls/min IV UD PRN; Protocol PRN Reason: EtOH Withdrawl AWSS Score 6,7 Stop: 04/27/21 07:00 Last Admin: 03/29/21 13:15 Dose: 2 mls/min Documented by: Octreotide Acetate 500 mcg/ (Sodium Chloride) 105 mls @ 10 mls/hr IV .[id number] [facility] Stop: 04/29/21 09:14 Last Admin: 03/30/21 09:58 Dose: 10 mls/hr Documented by: Metoprolol Tartrate (Metoprolol Tartrate 1 Mg/Ml Vial) 5 mg IV Q6 PRN PRN Reason: Hypertension Stop: 04/27/21 07:00 Nitroglycerin (Nitroglycerin Sl 0.4 Mg/Tab Tab) 0.4 mg SL UD PRN PRN Reason: Chest Pain Stop: 04/27/21 07:00 Ondansetron HCl (Ondansetron Inj 2 Mg/Ml 2 Ml Vial) 4 mg IV Q6H PRN PRN Reason: Nausea Stop: 04/27/21 07:00 Last Admin: 03/28/21 16:18 Dose: 4 mg Documented by: Umeclidinium/Vilanterol (Umeclidinium/Vilanterol 62.5/25mcg 7 Puffs/Inhaler) 1 puffs INH DAILY [facility] Stop: 04/27/21 08:59 Last Admin: 03/30/21 09:39 Dose: 1 puffs Documented by: (1) GI bleed GI bleed type/associated pathology: gastritis Gastritis type: alcoholic Qualified Code(s): K29.21 - Alcoholic gastritis with bleeding
[2021-03-31] MEDS: SODIUM CHLORIDE 0.9% 1000ML 1,000 ML IV SCH ×2 (00:38→14:00)
[2021-03-31] MEDS: PANTOprazole 40 MG in DEXTROSE 5% 100 ML IV SCH ×5 (00:38→21:03)
[2021-03-31] MEDS ORDERED: ACETAMINOPHEN 325 MG TAB PO STA (03:50)
[2021-03-31] MEDS: OCTREOTIDE ACETATE 500 MCG in 0.9 % SODIUM CHLORIDE 100 ML IV SCH ×2 (05:54→16:00)
[2021-03-31 06:58] LABS: Mean Corpuscular Hgb Conc 32.6 g/dL (32-36)
[2021-03-31 07:26] LABS: Hematocrit (blood only) 30.1 % (37-47); Hemoglobin 9.8 g/dL (12.0-16.0); Mean Corpuscular Hemoglobin 27.4 pg (25-34); Mean Corpuscular Volume 84.1 fL (80-100); RDW Coefficient of Variation 21.3 % (11.5-14.5); RDW Standard Deviation 65.2 fL (36.4-46.3); Red Blood Count 3.58 M/uL (4.2-5.4); White Blood Count 3.46 K/uL (4.8-10.8)
[2021-03-31 07:39] LABS: Calcium 6.8 mg/dl (8.5-10.1); Creatinine Clr Calc Pharmacy 94.2 ml/min; Est GFR (African American) 118.1 ml/min; Est GFR (Non-African American) 101.9 ml/min; Platelet Count 31 K/uL (130-400); Potassium 3.2 mmol/L (3.5-5.1)
[2021-03-31 07:40] LABS: Anisocytosis Present; Eosinophils # (auto) 0.07 K/uL (0-0.5); Hypochromasia Present; Immature Granulocytes # (auto) 0.01 K/uL (0.00-0.02); Immature Granulocytes % (auto) 0.3 %; Lymphocytes # (auto) 0.55 K/uL (1.2-3.4); Lymphocytes % (auto) 15.9 %; Monocytes # (auto) 0.65 K/uL (0.11-0.59); Monocytes % (auto) 18.8 %; Neutrophils # (auto) 2.18 K/uL (1.4-6.5); Platelet Estimate Decreased (Normal); Polychromasia 1+
[2021-03-31] MEDS: POTASSIUM CHLORIDE / WTR 10 MEQ/100 ML PLCT IV SCH ×2 (07:59→09:08)
[2021-03-31] MEDS: UMECLIDINIUM/VILANTEROL 62.5/25MCG 7 PUFFS/INHALER INH SCH (08:02)
[2021-03-31] MEDS: THIAMINE HCL 100 MG in SYRINGE 9 ML IV SCH (08:02)
[2021-03-31] MEDS: FOLIC ACID 1 MG in SYRINGE 9.8 ML IV SCH (08:02)
--- NOTE | 2021-03-31 09:05 | Gastroenterology Progress Note ---
Date of Service March 31, 2021 Assessment & Plan (1) GI bleed: Plan: 55 year old female with history of HCV (treated w [place], SVR attained), ETOH cirrhosis, w Grade II esophageal varices, portal HTN, ascites admitted w/ coffee ground emesis s/p EGD w/ stigmata of recent bleeding episodes, banded esophageal varices. She has remained clinically stable since EGD w/ banding, no further coffee ground emesis or melena episodes w/ stable VS and HGB - Can advance diet as tolerated - Avoid NG tube insertion - octreotide drip for 3 days total - protonix 40 mg IV BID - 7 day total course of antibiotics for sepsis ppx (can use ceftriaxone 1 g daily) - Repeat EGD in 4 weeks for variceal eradication - Continue Aldactone 25 mg daily - No lasix - BB not recommended by pulmonary team due to overlap asthma/COPD and ongoing use of MORIAH/LABA - Last Colonoscopy:2016 showed int hemorrhoids, sigmoid diverticulosis; due for repeat in 2026 - Hep A immunity:Immune - Hep B immunity:Immune - HCC screening [id number] (u/s; AFP):09/2019 MRI liver at [facility] - no liver lesion mentioned; AFP 10/30/2019 normal. - Encouraged to abstain from ETOH, illicit drugs, APAP no more than 2g daily - Low salt (2g) daily - Transplant evaluation pendingMELD, last ETOH use was 03/2021 - Colace 100 mg twice daily - Miralax 1 capful 1-2 times daily Recall GI as needed. Thank you for allowing us to participate in the care of this patient. Please call with any acute changes, questions or concerns. Please see addendum below with additional recommendation from my supervising physician. Admission and Anticipated Discharge Date Admission Date: March 28, 2021 Supervising Physician Co-Signing Physician Notes Attg add: I interviewed and examined pt, reviewed chart and labs. No complaints. No BM today. Hgb stable. Hungry. Her abdomens is soft. No tremor. Labs show stable creat. OK to adv diet, plans as above. Subjective Feeling well this AM Only concern is that she wants regular food Did not eat breakfast as she does not want liquids No further BMs. No report of black/bloody stools. No nausea/vomiting. No fever, chills, CP, SOB. Review of Systems Review of Systems: All systems reviewed & are unremarkable except as noted in HPI & below Physical Exam Constitutional: WD/WN, vitals as above Neck: trachea midline, no thyromegaly Respiratory: normal respiratory effort, lungs clear to auscultation Cardiovascular: RRR, no murmur, no edema Gastrointestinal (Abdomen): normal bowel sounds, soft, nontender, no hepatosplenomegaly Skin: no rashes, warm and dry Results & Data ([facility]) Vital Signs (Past 12 Hours) Vital Signs Temp Pulse Pulse Pulse Resp BP Pulse Ox 03/31/21 07:52 36.8 C 87 16 111/67 93 03/31/21 07:00 83 03/31/21 05:55 37 C 03/31/21 03:45 37.6 C H 80 18 108/61 93 03/31/21 01:11 76 Laboratory Results 03/31/21 03/31/21 03/29/21 Range/Units 06:46 06:46 05:21 WBC 3.46 L (4.8-10.8) K/uL RBC 3.58 L (4.2-5.4) M/uL Hgb 9.8 L (12.0-16.0) g/dL Hct 30.1 L (37-47) % MCV 84.1 (80-100) fL MCH 27.4 (25-34) pg MCHC 32.6 (32-36) g/dL RDW Std Deviation 65.2 H (36.4-46.3) fL RDW Coeff of Radha 21.3 H (11.5-14.5) % Plt Count 31 L (130-400) K/uL Immature Gran % (Auto) 0.3 % Neut % (Auto) 63.0 % Lymph % (Auto) 15.9 % Bowman % (Auto) 18.8 % Eos % (Auto) 2.0 % Baso % (Auto) 0.0 % Neut # (Auto) 2.18 (1.4-6.5) K/uL Lymph # (Auto) 0.55 L (1.2-3.4) K/uL Bowman # (Auto) 0.65 H (0.11-0.59) K/uL Eos # (Auto) 0.07 (0-0.5) K/uL Baso # (Auto) 0.00 (0-0.2) K/uL Immature Gran # (Auto) 0.01 (0.00-0.02) K/uL Platelet Estimate Decreased L (Normal) Polychromasia 1+ Hypochromasia Present Anisocytosis Present Sodium 139 (136-145) mmol/L Potassium 3.2 L (3.5-5.1) mmol/L Chloride 112 H (98-107) mmol/L Carbon Dioxide 22 (21-32) mmol/L Anion Gap 5.0 (3-11) BUN 5 L D (7-18) mg/dl Creatinine 0.60 (0.6-1.2) mg/dl Est Cr Clr Drug Dosing 94.2 ml/min Est GFR ( Amer) 118.1 ml/min Est GFR (Non-Af Amer) 101.9 ml/min BUN/Creatinine Ratio 8.0 L (10-20) Glucose 102 H (70-99) mg/dl Calcium 6.8 L (8.5-10.1) mg/dl Hepatitis C Ab Screen Pos A (Neg) (1) GI bleed GI bleed type/associated pathology: gastritis Gastritis type: alcoholic Qualified Code(s): K29.21 - Alcoholic gastritis with bleeding
--- NOTE | 2021-03-31 13:09 | Hospitalist Progress Note ---
Date of Service March 31, 2021 Assessment & Plan (1) GI bleed: Plan: Has been having coffee-ground emesis with abdominal pain and black tarry stool since the morning before admission Has history of alcoholic cirrhosis and likely having upper GI bleed secondary to variceal bleeding No more vomiting and or melena since admission We will check H&H every 6 hourly and blood transfusion if hemoglobin drops below 7 Has been on intravenous octreotide and intravenous PPI Hemoglobin dropped last evening below 7 and received 2 units of blood transfusion. Hemoglobin went up more than 9 as of this morning Remains reasonably stable following EGD and banding of varices Remains weak but stable-no more evidence of bleeding Acute blood loss anemia secondary to Esophageal variceal bleeding Status post EGD with successful banding of 2 large esophageal varices in mid esophagus She remains hungry but will be kept n.p.o. We will continue octreotide drip for a total of 5 days with IV Protonix and 7 days course of antibiotic She will need repeat EGD in 4 weeks Remains stable and will continue current management Started on clears and will advance as tolerated We will get PT and OT evaluation for possible discharge tomorrow afternoon (2) Alcoholic cirrhosis: Plan: History of alcoholic cirrhosis Started to drink recently following of her sister Strongly advised to quit drinking Hepatitis C positive HCC screening [id number] (u/s; AFP): 09/2019 MRI liver at [facility] - no liver lesion mentioned; AFP 10/30/2019 normal. Transplant evaluation pending MELD, last ETOH use was 03/2021 GI service is aware about hepatitis C antibody positivity She will have viral load tested as an outpatient (3) Alcohol abuse: Plan: Ongoing alcohol abuse No signs of withdrawal Advised to quit drinking (4) Transaminitis: Plan: Secondary to cirrhosis We will monitor-LFTs are not any better (5) COPD (chronic obstructive pulmonary disease): Plan: Does not have any acute exacerbation Continue home medications (6) Thrombocytopenia: Plan: Letter remains low at 38 Secondary to cirrhosis and alcoholism We will monitor DVT prophylaxis SCDs Admission and Anticipated Discharge Date Admission Date: March 28, 2021 Subjective 03/28/2021 Patient was seen and examined in telemetry unit She remains generally weak and lethargic but denies any significant symptoms No more nausea and or vomiting and bowel has not moved since admission 03/29/2021 Patient was seen and examined in telemetry unit He is a status post 2 unit of blood transfusion and the hemoglobin remains more than 9 She is a status post EGD and ligation of 2 large esophageal varices Has been feeling hungry but denies any other symptoms 03/30/2021 The patient was seen and examined in telemetry unit She has been feeling much better this morning and denies any nausea and or vomiting She has been tolerating clears orally 03/31/2021 The patient was seen and examined in telemetry unit He remains weak and lethargic I was reported by the nurse that she is having hallucination but No hallucination noted during my examination She wants to go home sooner and she was crying to go home but agreed to stay for 2 more days Review of Systems Review of Systems: All systems reviewed and are unremarkable except as noted below Gastrointestinal: No abdominal pain and no distention. No hematemesis and melena Physical Exam Physical Exam: Lying in bed comfortably Constitutional: + ill appearing and average body habitus Eyes: PERRL, conjunctivae normal, anicteric sclerae ENMT: external ear and nose normal, oropharynx normal Neck: trachea midline, no thyromegaly Respiratory: normal respiratory effort; no respiratory distress Cardiovascular: Rate/Rhythm: regular rate and regular rhythm; not tachycardic Heart Sounds: normal S1 and normal S2; no murmur Extremities: no edema Gastrointestinal (Abdomen): normal bowel sounds, soft, nontender, no hepatosplenomegaly Musculoskeletal: No acute arthritis in any joint Neurologic: Alert, awake and oriented x3. Generally weak but no focal sensory and motor deficit appreciated Lymphatic: no cervical or axillary lymphadenopathy Results & Data Results & Data ([facility]) Vital Signs (Past 12 Hours) Vital Signs Temp Pulse Pulse Pulse Resp BP Pulse Ox 03/31/21 11:37 36.9 C 69 18 105/60 93 03/31/21 07:52 36.8 C 87 16 111/67 93 03/31/21 07:00 83 03/31/21 05:55 37 C 03/31/21 03:45 37.6 C H 80 18 108/61 93 03/31/21 01:11 76 Laboratory Results Short CBC 03/31/21 Range/Units 06:46 WBC 3.46 L (4.8-10.8) K/uL Hgb 9.8 L (12.0-16.0) g/dL Hct 30.1 L (37-47) % Plt Count 31 L (130-400) K/uL BMP 03/31/21 06:46 Sodium 139 Potassium 3.2 L Chloride 112 H Carbon Dioxide 22 BUN 5 L D Creatinine 0.60 Glucose 102 H Calcium 6.8 L Medications Administered Current Inpatient Medications Albuterol (Albuterol Hfa 8 Gm Inhaler) 2 puffs INH Q6H PRN PRN Reason: Shortness Of Breath Or Wheezing Stop: 04/27/21 07:00 Cyclobenzaprine HCl (Cyclobenzaprine Hcl 5 Mg Tab) 5 mg PO DAILY PRN PRN Reason: MUSCLE SPASMS Stop: 04/27/21 07:00 Gabapentin (Gabapentin 600 Mg Tab) 600 mg PO Q24H [facility]PHAN Stop: 03/31/21 22:01 Hydroxyzine HCl (Hydroxyzine Hcl 10 Mg Tab) 10 mg PO Q12H PRN PRN Reason: anxiety Stop: 04/27/21 07:00 Last Admin: 03/30/21 19:52 Dose: 10 mg Documented by: Sodium Chloride (Nss 1000ml) 1,000 mls @ 75 mls/hr IV .[id number] [facility] Stop: 04/27/21 07:00 Last Admin: 03/31/21 00:38 Dose: 75 mls/hr Documented by: Pantoprazole Sodium 40 mg/ (Dextrose) 100 mls @ 20 mls/hr IV Q5H [facility] Stop: 04/27/21 07:14 Last Admin: 03/31/21 10:57 Dose: 8 mg/hr, 20 mls/hr Documented by: Thiamine HCl 100 mg/ Syringe 10 mls @ 2 mls/min IV QAM [facility] Stop: 04/27/21 08:59 Last Admin: 03/31/21 08:02 Dose: 2 mls/min Documented by: Folic Acid 1 mg/ Syringe 10 mls @ 5 mls/min IV QAM [facility] Stop: 04/27/21 08:59 Last Admin: 03/31/21 08:02 Dose: 5 mls/min Documented by: Lorazepam (Ativan) 2 mg in 4 mls @ 4 mls/min IV UD PRN; Protocol PRN Reason: EtOH Withdrawl AWSS Score 8,9 Stop: 04/27/21 07:00 Lorazepam (Ativan) 3 mg in 6 mls @ 4 mls/min IV ONCE PRN; Protocol PRN Reason: EtOH Withdrawl AWSS Score >=10 Stop: 04/27/21 07:00 Lorazepam (Ativan) 1 mg in 2 mls @ 2 mls/min IV UD PRN; Protocol PRN Reason: EtOH Withdrawl AWSS Score 6,7 Stop: 04/27/21 07:00 Last Admin: 03/29/21 13:15 Dose: 2 mls/min Documented by: Octreotide Acetate 500 mcg/ (Sodium Chloride) 105 mls @ 10 mls/hr IV .[id number] [facility] Stop: 04/29/21 09:14 Last Admin: 03/31/21 05:54 Dose: 10 mls/hr Documented by: Metoprolol Tartrate (Metoprolol Tartrate 1 Mg/Ml Vial) 5 mg IV Q6 PRN PRN Reason: Hypertension Stop: 04/27/21 07:00 Nitroglycerin (Nitroglycerin Sl 0.4 Mg/Tab Tab) 0.4 mg SL UD PRN PRN Reason: Chest Pain Stop: 04/27/21 07:00 Ondansetron HCl (Ondansetron Inj 2 Mg/Ml 2 Ml Vial) 4 mg IV Q6H PRN PRN Reason: Nausea Stop: 04/27/21 07:00 Last Admin: 03/28/21 16:18 Dose: 4 mg Documented by: Umeclidinium/Vilanterol (Umeclidinium/Vilanterol 62.5/25mcg 7 Puffs/Inhaler) 1 puffs INH DAILY [facility] Stop: 04/27/21 08:59 Last Admin: 03/31/21 08:02 Dose: 1 puffs Documented by: (1) GI bleed GI bleed type/associated pathology: gastritis Gastritis type: alcoholic Qualified Code(s): K29.21 - Alcoholic gastritis with bleeding
[2021-03-31] MEDS ORDERED: GABAPENTIN 600 MG TAB PO SCH (22:00)
[2021-04-01] MEDS: PANTOprazole 40 MG in DEXTROSE 5% 100 ML IV SCH ×2 (02:07→07:16)
[2021-04-01] MEDS: OCTREOTIDE ACETATE 500 MCG in 0.9 % SODIUM CHLORIDE 100 ML IV SCH (02:08)
[2021-04-01] MEDS: SODIUM CHLORIDE 0.9% 1000ML 1,000 ML IV SCH (05:03)
[2021-04-01] MEDS: FOLIC ACID 1 MG in SYRINGE 9.8 ML IV SCH (08:19)
[2021-04-01] MEDS: THIAMINE HCL 100 MG in SYRINGE 9 ML IV SCH (08:19)
[2021-04-01] MEDS: UMECLIDINIUM/VILANTEROL 62.5/25MCG 7 PUFFS/INHALER INH SCH (08:20)
--- NOTE | 2021-04-01 08:53 | Gastroenterology Progress Note ---
Date of Service April 01, 2021 Assessment & Plan (1) GI bleed: Plan: 55 year old female with history of HCV (treated w [facility], SVR attained), ETOH cirrhosis, w Grade II esophageal varices, portal HTN, ascites admitted w/ coffee ground emesis s/p EGD w/ stigmata of recent bleeding episodes, banded esophageal varices. She has remained clinically stable since EGD w/ banding, no further coffee ground emesis or melena episodes w/ stable VS and HGB and is tolerating regular diet - No GI contraindication to diet and discharge - Avoid NG tube insertion - octreotide drip for 3 days total (complete today) - protonix 40 mg IV BID (transition to PI PPI BID) - 7 day total course of antibiotics for sepsis ppx (can use ceftriaxone 1 g daily) - Repeat EGD in 4 weeks for variceal eradication - Continue Aldactone 25 mg daily - No lasix - BB not recommended by pulmonary team due to overlap asthma/COPD and ongoing use of MORIAH/LABA - Last Colonoscopy:2016 showed int hemorrhoids, sigmoid diverticulosis; due for repeat in 2026 - Hep A immunity:Immune - Hep B immunity:Immune - HCC screening [id number] (u/s; AFP):09/2019 MRI liver at [facility] - no liver lesion mentioned; AFP 10/30/2019 normal. - Encouraged to abstain from ETOH, illicit drugs, APAP no more than 2g daily - Low salt (2g) daily - Transplant evaluation pendingMELD, last ETOH use was 03/2021 - Colace 100 mg twice daily - Miralax 1 capful 1-2 times daily Recall GI as needed. Thank you for allowing us to participate in the care of this patient. Please call with any acute changes, questions or concerns. Please see addendum below with additional recommendation from my supervising physician. Admission and Anticipated Discharge Date Admission Date: March 28, 2021 Supervising Physician Co-Signing Physician Notes ATtg add: I interviewed and examined pt, reviewed chart and labs. No further bleeding overnight. Plan as above. Subjective Feeling well No abd pain, nausea, vomiting Tolerating diet On concern is she wants to go home Review of Systems 2 Review of Systems: All systems reviewed & are unremarkable except as noted in HPI & below Physical Exam Constitutional: WD/WN, vitals as above Neck: trachea midline, no thyromegaly Respiratory: normal respiratory effort, lungs clear to auscultation Cardiovascular: RRR, no murmur, no edema Gastrointestinal (Abdomen): normal bowel sounds, soft, nontender, no hepatosplenomegaly Skin: no rashes, warm and dry Results & Data ([facility]) Vital Signs (Past 12 Hours) Vital Signs Temp Pulse Pulse Resp BP Pulse Ox 04/01/21 08:06 36.9 C 80 19 108/67 90 04/01/21 03:52 36.7 C 81 18 115/68 91 04/01/21 00:00 79 03/31/21 23:36 37.0 C 95 H 18 107/83 95 (1) GI bleed GI bleed type/associated pathology: gastritis Gastritis type: alcoholic Qualified Code(s): K29.21 - Alcoholic gastritis with bleeding
[2021-04-01 09:38] LABS: Hematocrit (blood only) 30.1 % (37-47); Hemoglobin 9.8 g/dL (12.0-16.0); Mean Corpuscular Hemoglobin 27.5 pg (25-34); Mean Corpuscular Volume 84.3 fL (80-100); RDW Coefficient of Variation 22.1 % (11.5-14.5); RDW Standard Deviation 65.3 fL (36.4-46.3); Red Blood Count 3.57 M/uL (4.2-5.4)
[2021-04-01 09:44] LABS: BUN Creatinine Ratio 4.5 (10-20); Calcium 6.9 mg/dl (8.5-10.1); Creatinine Clr Calc Pharmacy 76.4 ml/min; Est GFR (Non-African American) 90.6 ml/min; Potassium 3.2 mmol/L (3.5-5.1)
[2021-04-01 09:49] LABS: Mean Corpuscular Hgb Conc 32.6 g/dL (32-36)
[2021-04-01 09:54] LABS: Anisocytosis Present; Basophils # (auto) 0.01 K/uL (0-0.2); Basophils % (auto) 0.3 %; Eosinophils # (auto) 0.07 K/uL (0-0.5); Eosinophils % (auto) 2.3 %; Immature Granulocytes # (auto) 0.01 K/uL (0.00-0.02); Immature Granulocytes % (auto) 0.3 %; Lymphocytes % (auto) 22.6 %; Monocytes # (auto) 0.86 K/uL (0.11-0.59); Monocytes % (auto) 27.7 %; Neutrophils # (auto) 1.45 K/uL (1.4-6.5); Neutrophils % (auto) 46.8 %; Platelet Count 29 K/uL (130-400); Platelet Estimate SIGNIFIC DECREASED (Normal); Target Cells 1+
--- NOTE | 2021-04-01 16:36 | Hospitalist Progress Note ---
Date of Service April 01, 2021 Assessment & Plan (1) GI bleed: Plan: Has been having coffee-ground emesis with abdominal pain and black tarry stool since the morning before admission Has history of alcoholic cirrhosis and likely having upper GI bleed secondary to variceal bleeding No more vomiting and or melena since admission We will check H&H every 6 hourly and blood transfusion if hemoglobin drops below 7 Has been on intravenous octreotide and intravenous PPI Hemoglobin dropped last evening below 7 and received 2 units of blood transfusion. Hemoglobin went up more than 9 as of this morning Remains reasonably stable following EGD and banding of varices Remains weak but stable-no more evidence of bleeding No more evidence of bleeding We will get PT and OT evaluation before discharging tomorrow Acute blood loss anemia secondary to Esophageal variceal bleeding Status post EGD with successful banding of 2 large esophageal varices in mid esophagus She remains hungry but will be kept n.p.o. We will continue octreotide drip for a total of 5 days with IV Protonix and 7 days course of antibiotic She will need repeat EGD in 4 weeks Remains stable and will continue current management Started on clears and will advance as tolerated Has been tolerating regular diet (2) Alcoholic cirrhosis: Plan: History of alcoholic cirrhosis Started to drink recently following of her sister Strongly advised to quit drinking Need to follow-up with outpatient alcohol Anonymous Hepatitis C positive HCC screening [id number] (u/s; AFP): 09/2019 MRI liver at [facility] - no liver lesion mentioned; AFP 10/30/2019 normal. Transplant evaluation pending MELD, last ETOH use was 03/2021 GI service is aware about hepatitis C antibody positivity She will have viral load tested as an outpatient (3) Alcohol abuse: Plan: Ongoing alcohol abuse No signs of withdrawal Advised to quit drinking (4) Transaminitis: Plan: Secondary to cirrhosis We will monitor-LFTs are not any better (5) COPD (chronic obstructive pulmonary disease): Plan: Does not have any acute exacerbation Continue home medications (6) Thrombocytopenia: Plan: Letter remains low at 38 Secondary to cirrhosis and alcoholism We will monitor DVT prophylaxis SCDs Admission and Anticipated Discharge Date Admission Date: March 28, 2021 Subjective 03/28/2021 Patient was seen and examined in telemetry unit She remains generally weak and lethargic but denies any significant symptoms No more nausea and or vomiting and bowel has not moved since admission 03/29/2021 Patient was seen and examined in telemetry unit He is a status post 2 unit of blood transfusion and the hemoglobin remains more than 9 She is a status post EGD and ligation of 2 large esophageal varices Has been feeling hungry but denies any other symptoms 03/30/2021 The patient was seen and examined in telemetry unit She has been feeling much better this morning and denies any nausea and or vomiting She has been tolerating clears orally 03/31/2021 The patient was seen and examined in telemetry unit He remains weak and lethargic I was reported by the nurse that she is having hallucination but No hallucination noted during my examination She wants to go home sooner and she was crying to go home but agreed to stay for 2 more days 04/01/2021 The patient was seen and examined in telemetry unit She has been feeling much better but remains extremely weak and lethargic Does not have any more GI bleeding and her hemoglobin remains stable She was advised to have PT and OT evaluation before going home tomorrow Review of Systems Review of Systems: All systems reviewed and are unremarkable except as noted below Gastrointestinal: No abdominal pain and no distention. No hematemesis and melena Physical Exam Physical Exam: Lying in bed comfortably Constitutional: + ill appearing and average body habitus Eyes: PERRL, conjunctivae normal, anicteric sclerae ENMT: external ear and nose normal, oropharynx normal Neck: trachea midline, no thyromegaly Respiratory: normal respiratory effort; no respiratory distress Cardiovascular: Rate/Rhythm: regular rate and regular rhythm; not tachycardic Heart Sounds: normal S1 and normal S2; no murmur Extremities: no edema Gastrointestinal (Abdomen): normal bowel sounds, soft, nontender, no hepatosplenomegaly Musculoskeletal: No acute arthritis in any joint Neurologic: Alert, awake and oriented x3. Very depressed Lymphatic: no cervical or axillary lymphadenopathy Results & Data Results & Data ([facility]) Vital Signs (Past 12 Hours) Vital Signs Temp Pulse Pulse Resp BP Pulse Ox 04/01/21 15:46 37.1 C 80 18 99/58 L 91 04/01/21 12:20 37.0 C 82 18 110/66 93 04/01/21 08:06 36.9 C 80 19 108/67 90 04/01/21 08:00 85 Laboratory Results Short CBC 04/01/21 Range/Units 08:57 WBC 3.10 L (4.8-10.8) K/uL Hgb 9.8 L (12.0-16.0) g/dL Hct 30.1 L (37-47) % Plt Count 29 L* (130-400) K/uL BMP 04/01/21 08:57 Sodium 140 Potassium 3.2 L Chloride 111 H Carbon Dioxide 23 BUN 3 L Creatinine 0.74 Glucose 169 H Calcium 6.9 L Medications Administered Current Inpatient Medications Albuterol (Albuterol Hfa 8 Gm Inhaler) 2 puffs INH Q6H PRN PRN Reason: Shortness Of Breath Or Wheezing Stop: 04/27/21 07:00 Cyclobenzaprine HCl (Cyclobenzaprine Hcl 5 Mg Tab) 5 mg PO DAILY PRN PRN Reason: MUSCLE SPASMS Stop: 04/27/21 07:00 Folic Acid (Folic Acid 1 Mg Tab) 1 mg PO QAM [facility] Stop: 05/02/21 08:59 Hydroxyzine HCl (Hydroxyzine Hcl 10 Mg Tab) 10 mg PO Q12H PRN PRN Reason: anxiety Stop: 04/27/21 07:00 Last Admin: 03/30/21 19:52 Dose: 10 mg Documented by: Lorazepam (Ativan) 2 mg in 4 mls @ 4 mls/min IV UD PRN; Protocol PRN Reason: EtOH Withdrawl AWSS Score 8,9 Stop: 04/27/21 07:00 Lorazepam (Ativan) 3 mg in 6 mls @ 4 mls/min IV ONCE PRN; Protocol PRN Reason: EtOH Withdrawl AWSS Score >=10 Stop: 04/27/21 07:00 Lorazepam (Ativan) 1 mg in 2 mls @ 2 mls/min IV UD PRN; Protocol PRN Reason: EtOH Withdrawl AWSS Score 6,7 Stop: 04/27/21 07:00 Last Admin: 03/29/21 13:15 Dose: 2 mls/min Documented by: Pantoprazole Sodium 40 mg/ (Syringe) 10 mls @ 5 mls/min IV BID STEPHAN Stop: 05/01/21 20:59 Metoprolol Tartrate (Metoprolol Tartrate 1 Mg/Ml Vial) 5 mg IV Q6 PRN PRN Reason: Hypertension Stop: 04/27/21 07:00 Nitroglycerin (Nitroglycerin Sl 0.4 Mg/Tab Tab) 0.4 mg SL UD PRN PRN Reason: Chest Pain Stop: 04/27/21 07:00 Ondansetron HCl (Ondansetron Inj 2 Mg/Ml 2 Ml Vial) 4 mg IV Q6H PRN PRN Reason: Nausea Stop: 04/27/21 07:00 Last Admin: 03/28/21 16:18 Dose: 4 mg Documented by: Thiamine HCl (Thiamine Hcl 100 Mg Tab) 100 mg PO QAM STEPHAN Stop: 05/02/21 08:59 Umeclidinium/Vilanterol (Umeclidinium/Vilanterol 62.5/25mcg 7 Puffs/Inhaler) 1 puffs INH DAILY [facility] Stop: 04/27/21 08:59 Last Admin: 04/01/21 08:20 Dose: 1 puffs Documented by: (1) GI bleed GI bleed type/associated pathology: gastritis Gastritis type: alcoholic Qualified Code(s): K29.21 - Alcoholic gastritis with bleeding
[2021-04-01] MEDS ORDERED: POLYETHYLENE (MIRALAX) 17 GM PACK PO PRN (20:53)
[2021-04-01] MEDS: DOCUSATE SODIUM/SENNA 50/8.6MG TAB PO SCH (21:34)
[2021-04-01] MEDS: PANTOprazole 40 MG in SYRINGE 0 ML IV SCH (21:34)
[2021-04-02 06:43] LABS: Mean Corpuscular Hgb Conc 32.6 g/dL (32-36)
[2021-04-02 07:01] LABS: BUN Creatinine Ratio 5.3 (10-20); Calcium 7.2 mg/dl (8.5-10.1); Creatinine Clr Calc Pharmacy 94.2 ml/min; Est GFR (African American) 118.1 ml/min; Est GFR (Non-African American) 101.9 ml/min; Magnesium 1.7 mg/dl (1.8-2.4); Phosphorus 2.6 mg/dl (2.5-4.9); Potassium 3.3 mmol/L (3.5-5.1)
[2021-04-02 07:03] LABS: Hematocrit (blood only) 30.7 % (37-47); Mean Corpuscular Hemoglobin 27.4 pg (25-34); Mean Corpuscular Volume 84.1 fL (80-100); RDW Coefficient of Variation 22.2 % (11.5-14.5); RDW Standard Deviation 67.3 fL (36.4-46.3); Red Blood Count 3.65 M/uL (4.2-5.4); White Blood Count 3.63 K/uL (4.8-10.8)
[2021-04-02 07:13] LABS: Platelet Count 36 K/uL (130-400)
[2021-04-02 07:15] LABS: Anisocytosis Present; Basophilic Stippling 1+; Basophils # (auto) 0.02 K/uL (0-0.2); Basophils % (auto) 0.6 %; Echinocytes 1+; Eosinophils # (auto) 0.06 K/uL (0-0.5); Eosinophils % (auto) 1.7 %; Giant Platelets 2+; Hypochromasia Present; Lymphocytes # (auto) 0.82 K/uL (1.2-3.4); Lymphocytes % (auto) 22.6 %; Monocytes # (auto) 1.14 K/uL (0.11-0.59); Monocytes % (auto) 31.4 %; Neutrophils # (auto) 1.59 K/uL (1.4-6.5); Neutrophils % (auto) 43.7 %; Platelet Estimate Decreased (Normal); Polychromasia 1+
[2021-04-02] MEDS: PANTOprazole 40 MG in SYRINGE 0 ML IV SCH (07:40)
[2021-04-02] MEDS: DOCUSATE SODIUM/SENNA 50/8.6MG TAB PO SCH (07:40)
[2021-04-02] MEDS: UMECLIDINIUM/VILANTEROL 62.5/25MCG 7 PUFFS/INHALER INH SCH (07:40)
[2021-04-02] MEDS ORDERED: POTASSIUM CHLORIDE CRTAB 20 MEQ TABCR PO STA (08:24)
[2021-04-02] MEDS ORDERED: THIAMINE HCL 100 MG TAB PO SCH (09:00)
[2021-04-02] MEDS ORDERED: FOLIC ACID 1 MG TAB PO SCH (09:00)
--- NOTE | 2021-04-02 10:50 | Hospitalist Progress Note ---
Date of Service April 02, 2021 Assessment & Plan (1) GI bleed: Plan: Has been having coffee-ground emesis with abdominal pain and black tarry stool since the morning before admission Has history of alcoholic cirrhosis and likely having upper GI bleed secondary to variceal bleeding No more vomiting and or melena since admission We will check H&H every 6 hourly and blood transfusion if hemoglobin drops below 7 Has been on intravenous octreotide and intravenous PPI Hemoglobin dropped last evening below 7 and received 2 units of blood transfusion. Hemoglobin went up more than 9 as of this morning Remains reasonably stable following EGD and banding of varices Denies any symptoms today and awaiting PT and OT evaluation Acute blood loss anemia secondary to Esophageal variceal bleeding Status post EGD with successful banding of 2 large esophageal varices in mid esophagus She remains hungry but will be kept n.p.o. We will continue octreotide drip for a total of 5 days with IV Protonix and 7 days course of antibiotic She will need repeat EGD in 4 weeks Remains stable and will continue current management Has been tolerating regular diet Hemoglobin remains stable at 10 on 04/02/2021 Will be discharged this afternoon (2) Alcoholic cirrhosis: Plan: History of alcoholic cirrhosis Started to drink recently following of her sister Strongly advised to quit drinking Need to follow-up with outpatient alcohol Anonymous Hepatitis C positive HCC screening [id number] (u/s; AFP): 09/2019 MRI liver at [facility] - no liver lesion mentioned; AFP 10/30/2019 normal. Transplant evaluation pending MELD, last ETOH use was 03/2021 GI service is aware about hepatitis C antibody positivity She will have viral load tested as an outpatient (3) Alcohol abuse: Plan: Ongoing alcohol abuse No signs of withdrawal Advised to quit drinking (4) Transaminitis: Plan: Secondary to cirrhosis We will monitor-LFTs are not any better (5) COPD (chronic obstructive pulmonary disease): Plan: Does not have any acute exacerbation Continue home medications (6) Thrombocytopenia: Plan: Letter remains low at 38 Secondary to cirrhosis and alcoholism We will monitor DVT prophylaxis SCDs Admission and Anticipated Discharge Date Admission Date: March 28, 2021 Subjective 03/28/2021 Patient was seen and examined in telemetry unit She remains generally weak and lethargic but denies any significant symptoms No more nausea and or vomiting and bowel has not moved since admission 03/29/2021 Patient was seen and examined in telemetry unit He is a status post 2 unit of blood transfusion and the hemoglobin remains more than 9 She is a status post EGD and ligation of 2 large esophageal varices Has been feeling hungry but denies any other symptoms 03/30/2021 The patient was seen and examined in telemetry unit She has been feeling much better this morning and denies any nausea and or vomiting She has been tolerating clears orally 03/31/2021 The patient was seen and examined in telemetry unit He remains weak and lethargic I was reported by the nurse that she is having hallucination but No hallucination noted during my examination She wants to go home sooner and she was crying to go home but agreed to stay for 2 more days 04/01/2021 The patient was seen and examined in telemetry unit She has been feeling much better but remains extremely weak and lethargic Does not have any more GI bleeding and her hemoglobin remains stable She was advised to have PT and OT evaluation before going home tomorrow 04/02/2021 The patient was seen and examined in telemetry unit She has been stable and moving around in the room without any symptoms Denies any abdominal pain, nausea and or vomiting Denies any problem with urine and bowel habit No tremors Review of Systems Review of Systems: All systems reviewed and are unremarkable except as noted below Gastrointestinal: No abdominal pain and no distention. No hematemesis and melena Physical Exam Physical Exam: Lying in bed comfortably Constitutional: + ill appearing and average body habitus Eyes: PERRL, conjunctivae normal, anicteric sclerae ENMT: external ear and nose normal, oropharynx normal Neck: trachea midline, no thyromegaly Respiratory: normal respiratory effort; no respiratory distress Cardiovascular: Rate/Rhythm: regular rate and regular rhythm; not tachycardic Heart Sounds: normal S1 and normal S2; no murmur Extremities: no edema Gastrointestinal (Abdomen): normal bowel sounds, soft, nontender, no hepatosplenomegaly Musculoskeletal: No acute arthritis in any joint Neurologic: Alert, awake and oriented x3. Generally weak Lymphatic: no cervical or axillary lymphadenopathy Results & Data Results & Data ([facility]) Vital Signs (Past 12 Hours) Vital Signs Temp Pulse Pulse Resp BP Pulse Ox 04/02/21 08:00 76 04/02/21 07:31 36.9 C 81 20 107/61 91 04/02/21 04:00 37.2 C 81 18 113/69 91 04/01/21 23:00 37.3 C 77 75 20 118/73 91 Laboratory Results Short CBC 04/02/21 Range/Units 06:04 WBC 3.63 L (4.8-10.8) K/uL Hgb 10.0 L (12.0-16.0) g/dL Hct 30.7 L (37-47) % Plt Count 36 L (130-400) K/uL BMP 04/02/21 06:04 Sodium 140 Potassium 3.3 L Chloride 111 H Carbon Dioxide 24 BUN 3 L Creatinine 0.60 Glucose 94 Calcium 7.2 L Medications Administered Current Inpatient Medications Albuterol (Albuterol Hfa 8 Gm Inhaler) 2 puffs INH Q6H PRN PRN Reason: Shortness Of Breath Or Wheezing Stop: 04/27/21 07:00 Cyclobenzaprine HCl (Cyclobenzaprine Hcl 5 Mg Tab) 5 mg PO DAILY PRN PRN Reason: MUSCLE SPASMS Stop: 04/27/21 07:00 Last Admin: 04/01/21 21:34 Dose: 5 mg Documented by: Folic Acid (Folic Acid 1 Mg Tab) 1 mg PO QAM STEPHAN Stop: 05/02/21 08:59 Last Admin: 04/02/21 07:40 Dose: 1 mg Documented by: Hydroxyzine HCl (Hydroxyzine Hcl 10 Mg Tab) 10 mg PO Q12H PRN PRN Reason: anxiety Stop: 04/27/21 07:00 Last Admin: 03/30/21 19:52 Dose: 10 mg Documented by: Lorazepam (Ativan) 2 mg in 4 mls @ 4 mls/min IV UD PRN; Protocol PRN Reason: EtOH Withdrawl AWSS Score 8,9 Stop: 04/27/21 07:00 Lorazepam (Ativan) 3 mg in 6 mls @ 4 mls/min IV ONCE PRN; Protocol PRN Reason: EtOH Withdrawl AWSS Score >=10 Stop: 04/27/21 07:00 Lorazepam (Ativan) 1 mg in 2 mls @ 2 mls/min IV UD PRN; Protocol PRN Reason: EtOH Withdrawl AWSS Score 6,7 Stop: 04/27/21 07:00 Last Admin: 03/29/21 13:15 Dose: 2 mls/min Documented by: Pantoprazole Sodium 40 mg/ (Syringe) 10 mls @ 5 mls/min IV BID STEPHAN Stop: 05/01/21 20:59 Last Admin: 04/02/21 07:40 Dose: 5 mls/min Documented by: Metoprolol Tartrate (Metoprolol Tartrate 1 Mg/Ml Vial) 5 mg IV Q6 PRN PRN Reason: Hypertension Stop: 04/27/21 07:00 Nitroglycerin (Nitroglycerin Sl 0.4 Mg/Tab Tab) 0.4 mg SL UD PRN PRN Reason: Chest Pain Stop: 04/27/21 07:00 Ondansetron HCl (Ondansetron Inj 2 Mg/Ml 2 Ml Vial) 4 mg IV Q6H PRN PRN Reason: Nausea Stop: 04/27/21 07:00 Last Admin: 03/28/21 16:18 Dose: 4 mg Documented by: Polyethylene Glycol (Polyethylene (Miralax) 17 Gm Pack) 17 gm PO DAILY PRN PRN Reason: Constipation Stop: 05/01/21 20:52 Senna/Docusate Sodium (Docusate Sodium/Senna 50/8.6mg Tab) 1 tab PO QAM [facility] Stop: 05/01/21 21:14 Last Admin: 04/02/21 07:40 Dose: 1 tab Documented by: Thiamine HCl (Thiamine Hcl 100 Mg Tab) 100 mg PO QAM [facility] Stop: 05/02/21 08:59 Last Admin: 04/02/21 07:41 Dose: 100 mg Documented by: Umeclidinium/Vilanterol (Umeclidinium/Vilanterol 62.5/25mcg 7 Puffs/Inhaler) 1 puffs INH DAILY STEPHAN Stop: 04/27/21 08:59 Last Admin: 04/02/21 07:40 Dose: 1 puffs Documented by: (1) GI bleed GI bleed type/associated pathology: gastritis Gastritis type: alcoholic Qualified Code(s): K29.21 - Alcoholic gastritis with bleeding
--- NOTE | 2021-04-03 07:17 | Discharge Summary ---
Date of Service April 03, 2021 Admission HPI Per Admitting Provider DICTATED BY: Lei Romero MD DATE OF ADMISSION: 03/28/2021. CHIEF COMPLAINT: GI bleed. HISTORY OF PRESENT ILLNESS: A 55-year-old female with past medical history significant for COPD, portal hypertension, cirrhosis of liver, protein-calorie malnutrition, history of thrombocytopenia, history of hepatitis C antibody positive, history of alcoholism, depression, tobacco abuse, presents with coffee-ground emesis and black stools. The patient says since yesterday morning having coffee-ground emesis, abdominal pain and black tarry stools, so she came to the hospital. Currently, she is resting comfortably. Her hemoglobin is 10.2. Still has some abdominal discomfort. Denies any chest pain, no shortness of breath. Has smoker's cough. No fever, no chills. Otherwise, appetite is okay. No dysphagia, no chest pain, no shortness of breath, no swelling in the legs, no rash. Admission Exam Per Admitting Provider GENERAL: The patient is not in acute distress. VITAL SIGNS: Temperature 36.0, pulse 101, respiratory rate 22, blood pressure 91/52, oxygen 91% on room air. HEENT: Pupils equal, round and reactive to light. Oral mucosa moist. NECK: No JVD or neck masses. CARDIOVASCULAR: S1 and S2 heard. Regular rate and rhythm. No murmur, no gallop. RESPIRATORY: Normal AP diameter. No accessory muscle use. No wheezing, no crackles. ABDOMEN: Soft, bowel sounds present, nontender, no distention. CENTRAL NERVOUS SYSTEM: Cranial nerves II-XII grossly intact, nonfocal. EXTREMITIES: No edema, no erythema. Principal Diagnosis Acute blood loss anemia secondary to GI bleed due to esophageal varices, status post EGD with successful banding of 2 large esophageal varices in mid esophagus, alcoholism with alcoholic cirrhosis, positive hep C antibody Discharge Exam Constitutional + ill appearing and average body habitus Eyes PERRL, conjunctivae normal, anicteric sclerae ENMT external ear and nose normal, oropharynx normal Neck trachea midline, no thyromegaly Respiratory normal respiratory effort; no respiratory distress Cardiovascular Rate/Rhythm: regular rate and regular rhythm; not tachycardic Heart Sounds: normal S1 and normal S2; no murmur Extremities: no edema Gastrointestinal (Abdomen) normal bowel sounds, soft, nontender, no hepatosplenomegaly Lymphatic no cervical or axillary lymphadenopathy Discharge Data Allergies Allergy/AdvReac Type Severity Reaction Status Date / Time codeine AdvReac Severe upset Verified 03/28/21 01:00 stomach Consultations 03/28/21 02:48 ED Decision to Admit Stat 03/28/21 08:00 Consult Gastroenterology Routine Procedures Performed Operation Date: 03/29/21 07:30 Actual Procedures p Upper Gastrointestinal Endoscopy with Banding(Not Applicable) - Bakari Renteria MD Ordered Studies 03/28/21 09:55 US abdomen ltd ascites Routine Hospital Course (1) GI bleed: Has been having coffee-ground emesis with abdominal pain and black tarry stool since the morning before admission Has history of alcoholic cirrhosis and likely having upper GI bleed secondary to variceal bleeding No more vomiting and or melena since admission We will check H&H every 6 hourly and blood transfusion if hemoglobin drops below 7 Has been on intravenous octreotide and intravenous PPI Hemoglobin dropped last evening below 7 and received 2 units of blood transfusion. Hemoglobin went up more than 9 as of this morning Remains reasonably stable following EGD and banding of varices Denies any symptoms today and awaiting PT and OT evaluation Acute blood loss anemia secondary to Esophageal variceal bleeding Status post EGD with successful banding of 2 large esophageal varices in mid esophagus She remains hungry but will be kept n.p.o. We will continue octreotide drip for a total of 5 days with IV Protonix and 7 days course of antibiotic She will need repeat EGD in 4 weeks Remains stable and will continue current management Has been tolerating regular diet Hemoglobin remains stable at 10 on 04/02/2021 Will be discharged this afternoon (2) Alcoholic cirrhosis: History of alcoholic cirrhosis Started to drink recently following of her sister Strongly advised to quit drinking Need to follow-up with outpatient alcohol Anonymous Hepatitis C positive HCC screening [id number] (u/s; AFP): 09/2019 MRI liver at [facility] - no liver lesion mentioned; AFP 10/30/2019 normal. Transplant evaluation pending MELD, last ETOH use was 03/2021 GI service is aware about hepatitis C antibody positivity She will have viral load tested as an outpatient (3) Alcohol abuse: Ongoing alcohol abuse No signs of withdrawal Advised to quit drinking (4) Transaminitis: Secondary to cirrhosis We will monitor-LFTs are not any better (5) COPD (chronic obstructive pulmonary disease): Does not have any acute exacerbation Continue home medications (6) Thrombocytopenia: Letter remains low at 38 Secondary to cirrhosis and alcoholism We will monitor DVT prophylaxis SCDs Total Time Total Time Spent Total Time Spent (In Minutes): 35 minutes Discharge Plan Discharge Items Patient Disposition: Home - Self-Care Reason For Visit: VOMITING Discharge Diagnosis: Acute blood loss anemia secondary to GI bleed due to esophageal varices, status post EGD with successful banding of 2 large esophageal varices in mid esophagus, alcoholism with alcoholic cirrhosis, positive hep C antibody Condition on Discharge: Fair Activity: Resume your previous activity Non-emergency contact: Primary Care Provider Call non-emergency contact if: you have any medication questions and your symptoms worsen Follow-up/Referrals: Sumi Dailey, [Primary Care Provider] - (Date & Time 04/09/2021 11:20 AM Provider Olga Dickinson MD Department [facility] ) Diet: Heart Healthy Addtl Attending Provider Instructions: Please take precautions to avoid fall Strongly advised to quit drinking of alcohol Take medications as advised Please have follow-up with outpatient alcohol Anonymous group Pending Studies at Discharge: No Stand-Alone Forms: My [employer], Smoking Cessation Medications and DC Order Prescriptions: New thiamine HCl (vitamin B1) [Vitamin B-1] 100 mg Tablet 100 mg PO QAM 30 Days Qty: 30 RF: 0 folic acid 1 mg Tablet 1 mg PO QAM 30 Days Qty: 30 RF: 0 cefdinir 300 mg capsule 300 mg PO BID Qty: 4 RF: 0 Continued albuterol sulfate 90 mcg/actuation Hfa Aerosol Inhaler 2 puff INHALATION Q6H PRN (Reason: Shortness Of Breath Or Wheezing) RF: 0 hydroxyzine HCl 10 mg tablet 10 mg PO Q12H PRN (Reason: anxiety) Qty: 30 RF: 0 omeprazole 40 mg capsule,delayed release(DR/EC) 40 mg PO BID RF: 0 cyclobenzaprine 5 mg tablet 5 mg PO DAILY PRN (Reason: MUSCLE SPASMS) RF: 0 Anoro Ellipta 62.5-25 mcg/actuation blister with device 1 inh INHALATION DAILY RF: 0 potassium chloride 10 mEq capsule, extended release 10 meq PO DIRECTED RF: 0 Discharge Orders: Discharge Order (Routine); Ordered 04/02/21 Ordered By: Joselin Salcedo/Other Patient Handouts: Understanding Hepatitis C (HCV), Diagnosing Hepatitis C Admission Data Admit Date/Time: 03/28/21 04:17 Attending Provider: Joselin Blackwell Admit Provider: Lei Romero Primary Care Provider: Sumi Dailey Other Providers: Essence Hill ; Lei Romero ; Herbie Bro Other Interventions: Discharge Summary Assessment (RN) Last Done: 04/02/21 12:03
== END 2021-04-02 12:38 | disposition home or self-care (01) | DRG 432 ==
LOC: ED 23:50 → 2E 03-28 04:17

== ENCOUNTER 2021-12-29 14:14 | Inpatient (IN) ==
[2021-12-29] MEDS ORDERED: SODIUM CHLORIDE 0.9% 1000ML 1,000 ML IV STA (14:25)
[2021-12-29] MEDS ORDERED: FAMOTIDINE 20MG IV PUSH 20 MG/5 ML SYR IV STA (14:26)
[2021-12-29] MEDS ORDERED: STAT IV STA (14:26)
[2021-12-29] MEDS ORDERED: PANTOPRAZOLE BOLUS/DRIP 1 EA IV STA (14:26)
[2021-12-29] MEDS ORDERED: cefTRIAXone SODIUM 2,000 MG/70 ML BAG IV STA (14:26)
[2021-12-29] MEDS ORDERED: PANTOprazole 80 MG in DEXTROSE 5% 100 ML IV ONE (14:26)
[2021-12-29] MEDS ORDERED: OCTREOTIDE ACETATE 100 MCG in SYRINGE 9 ML IV STA (14:26)
--- NOTE | 2021-12-29 14:43 | Emergency Department Note ---
Impression & Plan Acute upper gastrointestinal bleeding, Hx of esophageal varices ED Provider Note INFORMANT: Patient ED PROVIDER(S): Otto Putnam MD CHIEF COMPLAINT: GI bleed PLAN: Disposition: Admitted Condition: Guarded Outpatient prescription management: none Referral: None MEDICAL DECISION MAKING: Patient presented to the emergency department because of suspected upper GI bleed. She was given IV Zofran in route and felt much better with this. The patient has a significant history with esophageal varices. She had IV fluids, IV Pepcid, IV Protonix bolus and drip, IV octreotide bolus and drip, IV Rocephin ordered. CBC shows mild anemia. Chemistry panel does show an elevated BUN and mild elevation of LFTs. She was also treated with IV Zofran and Dilaudid. Consultation was placed with gastroenterology. Case was discussed. Patient will need admitted to the hospital for further management. Consultation was made with the [facility] service. Patient was evaluated in the ER admitted for further management. Triage Nursing notes reviewed and agree them. Vital Signs: reviewed and remarkable for no significant abnormalities Differential diagnosis: Diverticulosis, AVM, coagulopathy, colitis, inflammatory bowel disease, malignancy, Viola-Darby tear, esophagitis, peptic ulcer disease, variceal bleed, gastritis, epistaxis, fissure, hemorrhoids, as well as other pathologies. Diagnostics interpreted by me: EC Lead ECG performed and revealed Normal sinus rhythm at 99, normal [place], QRS normal. No elevation or depression. No PACs or PVCs Cardiac Monitoring: Cardiac monitoring ordered by me: The patient was placed on continuous cardiac monitoring and observed. It revealed a normal sinus rhythm at 97 beats per minute without ectopy or evidence of dysrhythmia. Imaging studies: Deferred HPI: The patient is a 56year old female who presents to the Emergency Room with complaints of GI bleeding. The patient has a history of hepatitis C, cirrhosis, EtOH abuse, and esophageal varices. She was treated in this facility in March 2021 for an upper GI bleed and did have banding of varices. This started last night and is persisting. The patient also notes the following associated symptoms, nausea, upper abdominal pain, dark stool, coffee-ground emesis. The patient has been given Zofran by EMS for relieving factors. Current pain is rated as 6/10. Pt denies LOC, headache, fevers, chills, diaphoresis, visual changes, neck pain, chest pain, breathing difficulties, back pain, hematochezia, urinary symptoms, numbness, weakness, lymphadenopathy, rash, or other c omplaints. ROS: See above HPI for pertinent positives & negatives. A total of 10 systems reviewed and were otherwise negative. PAST MEDICAL HISTORY:See Below , hepatitis C, cirrhosis, varices PAST SURGICAL HISTORY:See Below, FAMILY HISTORY:See Below SOCIAL HISTORY:See Below, patient admits to starting alcohol again increasing to half a pint of bourbon a day HOME MEDICATIONS:See Below ALLERGIES:See Below VITALS:See Below PHYSICAL EXAMINATION: GENERAL: Awake, alert, mildly uncomfortable-appearing, in no distress HENT: Normocephalic, atraumatic. Oropharynx unremarkable. EYES: Normal conjunctiva. Sclera non-icteric. NECK: Inspection normal. Non-tender. Supple. No nuchal rigidity. FROM. No masses. RESPIRATORY: Clear to auscultation. No wheezes. No rales. Normal respiratory effort. CARDIAC: Borderline tachycardic rate. Normal rhythm. No murmurs. No rubs. Extremities warm and well perfused. Pulses equal. No JVD. GI: Soft, non-distended. Epigastric tenderness to palpation. No rebound or guarding. No masses. RECTAL: Deferred. MUSCULOSKELETAL: Atraumatic. Chest examination reveals no tenderness. The back is symmetrical on inspection without obvious abnormality. There is no CVA tenderness to palpation. No joint edema. LOWER EXTREMITIES: Calves are equal size bilaterally and non-tender. No edema. No discoloration. NEURO: Normal sensorium. No sensory or motor deficits noted. SKIN: No rash or jaundice noted. Otto Putnam MD Past Med/Surg History Medical History Alcohol abuse Alcoholic cirrhosis Anxiety and depression Ascites Cirrhosis of liver (11/21/12) COPD (chronic obstructive pulmonary disease) Hepatitis C treated with harvoni in [facility] pt is now negative Hypokalemia Portal hypertension Thrombocytopenia Transaminitis Surgical History History of total right hip replacement History of tubal ligation Family History Mother Cervical cancer Social History Smoking Status: Current every day smoker Tobacco Type: Cigarettes Cigarettes Per Day: 2; Second Hand Exposure: No; Do You Dip or Chew Tobacco: No; Tobacco Cessation Education Requested by Patient: No Hx Alcohol Use: Yes Alcohol type: beer and hard liquor Hx Substance Use: No Preferred Language: Eritrean Communication Ability: Effective Supervisor Word Processing Required: No Beliefs That Will Affect Care: None marital status: Current Living Situation: Spouse Other Information That Helps Us Care for You: No Feels Safe at Home: Yes Safety Concerns: Feels Safe At This Time Assistive Devices: Glasses and Oxygen - at Night Allergies Allergies Allergy/AdvReac Type Severity Reaction Status Date / Time codeine AdvReac Severe upset Verified 03/28/21 01:00 stomach Home Meds Home Medications Medication Instructions Recorded Confirmed albuterol sulfate 90 mcg/actuation 2 puff INHALATION Q6H PRN 01/08/19 12/29/21 aerosol inhaler omeprazole 40 mg capsule,delayed 40 mg PO BID 10/30/19 12/29/21 release cyclobenzaprine 5 mg tablet 5 mg PO DAILY PRN 03/28/21 12/29/21 potassium chloride 10 mEq 10 meq PO BID 03/28/21 12/29/21 capsule,extended release umeclidinium 62.5 mcg-vilanterol 1 inh INHALATION DAILY 03/28/21 12/29/21 25 mcg/actuation powdr for inhalation (Anoro Ellipta) folic acid 1 mg tablet 1 mg PO DAILY 12/29/21 12/29/21 multivitamin 1 tab PO DAILY 12/29/21 12/29/21 spironolactone 25 mg tablet 25 mg PO DAILY 12/29/21 12/29/21 thiamine HCl (vitamin B1) 100 mg 100 mg PO DAILY 12/29/21 12/29/21 tablet Previous Rx's Medication Instructions Recorded hydroxyzine HCl 10 mg tablet 10 mg PO Q12H PRN #30 tab 01/13/19 Results & Data (ED) Vital Signs Vital Signs - 24 hr 12/29/21 14:25 12/29/21 16:01 Pulse Rate 102 H Pulse Rate [Apical] 97 H Pulse Rhythm Regular Pulse Rhythm [Apical] Regular Pulse Strength Normal Pulse Strength [Apical] Normal Respiratory Rate 18 18 Respiratory Effort / Characteristics Non-Labored Non-Labored Respiratory Depth Normal Normal Respiratory Pattern Regular Regular Blood Pressure 102/87 Blood Pressure [Left Arm] 118/90 Blood Pressure Mean 92 Blood Pressure Mean [Left Arm] 99 Blood Pressure Position Lying Blood Pressure Position [Left Arm] Lying Pulse Oximetry 95 91 Oxygen Delivery Method Room Air Room Air Sepsis Recent Fever Within 48 Hours No Sepsis New/Unexplained Change in Mental Status No Sepsis Action Taken by Nursing No Action Required Laboratory Data Result diagrams: 12/29/21 20:58 12/29/21 14:41 Lab Results 12/29/21 12/29/21 12/29/21 Range/Units 14:41 14:41 14:41 WBC 7.09 (4.8-10.8) K/uL RBC 2.85 L (4.2-5.4) M/uL Hgb 8.4 L (12.0-16.0) g/dL Hct 25.1 L (37-47) % MCV 88.1 (80-100) fL MCH 29.5 (25-34) pg MCHC 33.5 (32-36) g/dL RDW Std Deviation 51.7 H (36.4-46.3) fL RDW Coeff of Radha 16.1 H (11.5-14.5) % Plt Count 78 L (130-400) K/uL MPV 10.8 H (7.4-10.4) fL Immature Gran % (Auto) 0.3 % Neut % (Auto) 74.5 % Lymph % (Auto) 9.9 % [place] % (Auto) 15.0 % Eos % (Auto) 0.0 % Baso % (Auto) 0.3 % Neut # (Auto) 5.29 (1.4-6.5) K/uL Lymph # (Auto) 0.70 L (1.2-3.4) K/uL [place] # (Auto) 1.06 H (0.11-0.59) K/uL Eos # (Auto) 0.00 (0-0.5) K/uL Baso # (Auto) 0.02 (0-0.2) K/uL Immature Gran # (Auto) 0.02 (0.00-0.02) K/uL Platelet Estimate Decreased L (Normal) PT 15.6 H (9.0-12.0) Seconds INR 1.5 H (0.9-1.1) APTT 25.9 (21.0-31.0) Seconds PTT Ratio 0.9 Sodium (136-145) mmol/L Potassium (3.5-5.1) mmol/L Chloride (98-107) mmol/L Carbon Dioxide (21-32) mmol/L Anion Gap (3-11) BUN (6-23) mg/dl Creatinine (0.6-1.2) mg/dl Est Cr Clr Drug Dosing ml/min Est GFR ( Amer) ml/min Est GFR (Non-Af Amer) ml/min BUN/Creatinine Ratio (10-20) Glucose (70-99(Fasting)) mg/dl Calcium (8.5-10.1) mg/dl Total Bilirubin (0.2-1.0) mg/dl AST (13-39) U/L ALT (7-52) U/L Alkaline Phosphatase (34-104) U/L Total Protein (6.0-8.3) gm/dl Albumin (3.4-5.0) gm/dl Globulin (2.5-4.0) gm/dl Albumin/Globulin Ratio (0.9-2) SARS-CoV-2, RNA, NAAT (NEGATIVE) Blood Type B Positive Antibody Screen NEGATIVE Crossmatch See Detail 12/29/21 12/29/21 Range/Units 14:41 16:22 WBC (4.8-10.8) K/uL RBC (4.2-5.4) M/uL Hgb (12.0-16.0) g/dL Hct (37-47) % MCV (80-100) fL MCH (25-34) pg MCHC (32-36) g/dL RDW Std Deviation (36.4-46.3) fL RDW Coeff of Radha (11.5-14.5) % Plt Count (130-400) K/uL MPV (7.4-10.4) fL Immature Gran % (Auto) % Neut % (Auto) % Lymph % (Auto) % [place] % (Auto) % Eos % (Auto) % Baso % (Auto) % Neut # (Auto) (1.4-6.5) K/uL Lymph # (Auto) (1.2-3.4) K/uL [place] # (Auto) (0.11-0.59) K/uL Eos # (Auto) (0-0.5) K/uL Baso # (Auto) (0-0.2) K/uL Immature Gran # (Auto) (0.00-0.02) K/uL Platelet Estimate (Normal) PT (9.0-12.0) Seconds INR (0.9-1.1) APTT (21.0-31.0) Seconds PTT Ratio Sodium 142 (136-145) mmol/L Potassium 3.6 (3.5-5.1) mmol/L Chloride 107 (98-107) mmol/L Carbon Dioxide 25 (21-32) mmol/L Anion Gap 10 (3-11) BUN 32 H (6-23) mg/dl Creatinine 0.65 (0.6-1.2) mg/dl Est Cr Clr Drug Dosing 85.9 ml/min Est GFR ( Amer) 114.2 ml/min Est GFR (Non-Af Amer) 98.6 ml/min BUN/Creatinine Ratio 49.2 H (10-20) Glucose 144 H (70-99(Fasting)) mg/dl Calcium 8.3 L (8.5-10.1) mg/dl Total Bilirubin 2.1 H (0.2-1.0) mg/dl AST 40 H (13-39) U/L ALT 15 (7-52) U/L Alkaline Phosphatase 72 (34-104) U/L Total Protein 6.4 (6.0-8.3) gm/dl Albumin 3.0 L (3.4-5.0) gm/dl Globulin 3.4 (2.5-4.0) gm/dl Albumin/Globulin Ratio 0.9 (0.9-2) SARS-CoV-2, RNA, NAAT NEGATIVE (NEGATIVE) Blood Type Antibody Screen Crossmatch Administered Medications Folic Acid (Folic Acid 1 Mg Tab) 1 mg PO QAM STEPHAN Stop: 01/28/22 19:12 Last Admin: 12/29/21 20:18 Dose: 1 mg Documented by: [id number] Pantoprazole Sodium 40 mg/ (Dextrose) 100 mls @ 20 mls/hr IV Q5H STEPHAN Stop: 01/28/22 14:44 Last Admin: 12/29/21 22:02 Dose: 8 mg/hr, 20 mls/hr Documented by: [id number] Infusion: 12/29/21 20:54 Dose: 8 mg/hr, 20 mls/hr Documented by: [id number] Admin: 12/29/21 15:54 Dose: 8 mg/hr, 20 mls/hr Documented by: [id number] Octreotide Acetate 500 mcg/ (Dextrose) 100.5 mls @ 10.05 mls/hr IV .Q10H STEPHAN Stop: 01/28/22 14:29 Last Admin: 12/29/21 15:29 Dose: 50 mcg/hr, 10.1 mls/hr Documented by: [id number] Lorazepam (Lorazepam 2 Mg/1 Ml Vial) 1 mg IV UD PRN; Protocol PRN Reason: EtOH Withdrawl AWSS Score 6,7 Stop: 01/28/22 19:12 Last Admin: 12/29/21 20:05 Dose: 1 mg Documented by: [id number] Thiamine HCl (Thiamine Hcl 100 Mg Tab) 100 mg PO QAM STEPHAN Stop: 01/28/22 19:12 Last Admin: 12/29/21 20:17 Dose: 100 mg Documented by: [id number] Discontinued Medications Gabapentin (Gabapentin 600 Mg Tab) 1,200 mg PO NOW ONE Stop: 12/29/21 19:14 Last Admin: 12/29/21 20:17 Dose: 1,200 mg Documented by: [id number] Hydromorphone HCl (Hydromorphone Inj 0.5 Mg/0.5 Ml Syr) 0.25 mg IV Q15M PRN PRN Reason: Pain Stop: 01/12/22 14:47 Last Admin: 12/29/21 15:04 Dose: 0.25 mg Documented by: [id number] Sodium Chloride (Nss 1000ml) 1,000 mls @ 125 mls/hr IV .Q8H STA Stop: 12/29/21 22:24 Last Admin: 12/29/21 15:03 Dose: 125 mls/hr Documented by: [id number] Ceftriaxone Sodium (Rocephin) 2,000 mg in 70 mls @ 140 mls/hr IV NOW STA Stop: 12/29/21 14:55 Last Infusion: 12/29/21 15:33 Dose: 0 mls/hr Documented by: [id number] Admin: 12/29/21 15:03 Dose: 140 mls/hr Documented by: [id number] Famotidine (Pepcid 20mg Iv Push) 20 mg in 5 mls @ 2.5 mls/min IV NOW STA Stop: 12/29/21 14:27 Last Admin: 12/29/21 15:02 Dose: 2.5 mls/min Documented by: [id number] Pantoprazole Sodium (Protonix Bolus/Drip) 0 mls @ 1 mls/hr IV ONE STA Stop: 12/29/21 14:27 Last Admin: 12/29/21 16:29 Dose: Not Given Documented by: [id number] Pantoprazole Sodium 80 mg/ (Dextrose) 120 mls @ 400 mls/hr IV NOW ONE Stop: 12/29/21 14:43 Last Infusion: 12/29/21 15:51 Dose: 0 mls/hr Documented by: [id number] Admin: 12/29/21 15:29 Dose: 400 mls/hr Documented by: [id number] Phytonadione 2.5 mg/ Dextrose 50.25 mls @ 100.5 mls/hr IV 1900 ONE Stop: 12/29/21 19:29 Last Infusion: 12/29/21 22:03 Dose: 0 mls/hr Documented by: [id number] Admin: 12/29/21 20:14 Dose: 100.5 mls/hr Documented by: [id number] Multivitamins 10 ml/ Thiamine HCl 100 mg/ Folic Acid 1 mg/Sodium Chloride 1,011.2 mls @ 500 mls/hr IV .Q2H2M ONE Stop: 12/29/21 21:31 Last Admin: 12/29/21 22:02 Dose: 500 mls/hr Documented by: [id number] Miscellaneous (Stat Iv) 1 ea N/A NOW STA Stop: 12/29/21 14:27 Last Admin: 12/29/21 16:28 Dose: Not Given Documented by: [id number] Octreotide Acetate (Octreotide Bolus From Bag) 50 mcg IV ONE ONE Stop: 12/29/21 14:45 Last Admin: 12/29/21 15:44 Dose: 50 mcg Documented by: [id number] Ondansetron HCl (Ondansetron Inj 2 Mg/Ml 2 Ml Vial) 4 mg IV NOW STA Stop: 12/29/21 14:49 Last Admin: 12/29/21 15:02 Dose: 4 mg Documented by: [id number] Discharge Plan Visit Data Chief Complaint: GI Bleed ED Provider: Otto Putnam Discharge Problem: Acute upper gastrointestinal bleeding, Hx of esophageal varices Patient Disposition: Admitted As Inpatient Discharge Instructions Interventions: ED Discharge Assessment Last Done: 12/29/21 18:35
[2021-12-29] MEDS ORDERED: OCTREOTIDE BOLUS FROM BAG IV ONE (14:44)
[2021-12-29] MEDS ORDERED: HYDROmorphone INJ 0.5 MG/0.5 ML SYR IV PRN (14:48)
[2021-12-29] MEDS ORDERED: ONDANSETRON INJ 2 MG/ML 2 ML VIAL IV STA (14:48)
[2021-12-29 15:13] LABS: INR 1.5 (0.9-1.1); Partial Thromboplastin Ratio 0.9; Partial Thromboplastin Time 25.9 Seconds (21.0-31.0); Prothrombin Time 15.6 Seconds (9.0-12.0)
--- NOTE | 2021-12-29 15:18 | Gastrointestinal Consultation ---
Date of Consultation December 29, 2021 Assessment & Plan (1) Melena: (2) Acute upper gastrointestinal bleeding: (3) Hx of esophageal varices: (4) Alcoholic cirrhosis: 56 y/o female w/ Hep C (tx, SVR achieved), ETOH cirrhosis, PHG, varices, ascites, w/ recent EGD 11/23/21 showing G2EV, presented with multiple episodes of coffee ground emesis/melena starting yesterday; none since this afternoon. HGB down to 8.4 from 11 with slight bump in BUN. On exam is in NAD, abd soft, nondistended, no overt GIB, and HD stable. She recently started increasing her ETOH intake. Given her history we wonder about variceal bleed vs gastritis, esophagitis. - Can have sips/chips for now; NPO after midnight - Plan for EGD tomorrow - Agree with PPI gtt - Agree with octreotide gtt - Agree with IV Rocephin - IVF - Antiemetics PRN - Monitor and document GI output - Trend H&H, transfuse PRN - Encouraged to abstain from ETOH, illicit drugs, APAP no more than 2g daily - Low salt (2g) daily - She has stopped her spironolactone. Will likely need to restart this on DC given her history of ascites - If she has acute worsening overnight the on-call GI service can be paged Thank you for allowing us to participate in the care of this patient. Please call with any acute changes, questions or concerns. Please see addendum below with additional recommendation from my supervising physician. Supervising Physician Co-Signing Physician Notes I performed a history and physical examination of the patient today, including specifically on physical exam - soft abdomen. I have discussed the patient's management with the advanced practitioner. Please refer to the nurse practitioner's note for the documented findings and plan of care. No vomiting since morning, likely decompensated her liver cirrhosis with resuming alcohol use. Currently hemodynamically stable and Hgb is > 8. Treat with Octreotide and PPI. Will need EGD tomorrow. If any change in clinical status overnight please call us back. History of Present Illness Reason for Consultation: GIB Requesting Physician: Dr. Putnam History of Present Illness Pt is a 56 year old female with history of HCV (treated w Brenda, SVR attained), ETOH cirrhosis, w Grade II esophageal varices, portal HTN, ascites who presented to the ER today w/ reports of multiple episodes of coffee ground emesis, melena starting last evening and continuing to this afternoon. She's had none since being given Zofran in the ER. Recent EGD 11/23/21 w/ G2EV, PHG, she's on 3 month recall for EVL. In the ER BP in the low 100's but HD stable. Has some upper abd discomfort from the vomiting but it is not severe. She is passing flatus. Labs w/ HGB 11->8.4, BUN 32, INR 15. MELD is 14. She had been drinking 1 beer a day but recently increased to 1 pint of liquor a day and finished a / since Tuesday; last drink was yesterday. She tells me she has not taken her Aldactone in several months since she was doing well; has not had abd distention or leg edema. She is "not always" faithful to low Na diet. Last PO intake was yesterday. No NSAIDs, AC, APAP. Denies hematochezia, fever, chills, jaundice, dark urine, CP, SOB, syncope. She has a chronic intermittent hacky cough. Cirrhosis: Decompensations: Varices: grade 2 - BB contraindicated per pulmonary Portal HTN: severe - BB contraindicated per pulmonary Ascites/Edema: Lasix DC'd for hypokalemia. On Spironolactone 25 mg daily HE: none Screenings: MELD-Na: 14 on 12/29/21 HCC: Due December 2021 Varices: Repeat 02/2022 Immunizations: Hep A and B immune Last EGD 11/23/21: - Thick mucous on the vocal cords with granular changes, erythema and prominent blood vessels on the vocal cords. - Grade II esophageal varices with no bleeding and no stigmata of recent bleeding. - Small hiatal hernia. - No endoscopic esophageal abnormality to explain patient's dysphagia. - Portal hypertensive gastropathy. - Normal duodenal bulb and second portion of the duodenum. - No specimens collected. EGD 03/2021: - Hiatal hernia. - Grade I esophageal varices with no stigmata of recent bleeding. - Portal hypertensive gastropathy. - Normal examined duodenum. - No specimens collected. Last Colonoscopy: 2016 showed int hemorrhoids, sigmoid diverticulosis; due for repeat in 2026 ABD US 06/2021: Cholelithiasis. Nonspecific gallbladder wall thickening as discussed above. Hepatic findings nonspecific but compatible with patient's clinical diagnosis of cirrhosis. Ascitic fluid as discussed. ABD US 2019:Cirrhosis of the liver. No hepatic mass is demonstrated. Small right upper quadrant ascites. EUS 2012:fatty liver, gallbladder wall 4mm, ? Alvarado's esophagus, Grade I esophageal varices EGD/Colonoscopy 2016: Grade I varices, portal HTN; diverticulosis, int hemorrhoids. EGD 2019: showed hiatal hernia, grade 2 varices w/o stigmata of bleeding, severe portal gastropathy MRCP 2019: non diagnostic for biliary obstruction LE duplex 2019:Patent right lower extremity venous system. No evidence of acute deep venous thrombosis of the right lower extremity Obstructive series 2019:Right pleural effusion.Mild patchy bibasilar airspace opacities. This may represent atelectasis or pneumonia. Nonobstructive bowel gas pattern Allergies Allergy/AdvReac Type Severity Reaction Status Date / Time codeine AdvReac Severe upset Verified 03/28/21 01:00 stomach Home Medications Medication Instructions Recorded Confirmed Type albuterol sulfate 90 mcg/actuation 2 puff INHALATION Q6H PRN 01/08/19 12/29/21 History aerosol inhaler hydroxyzine HCl 10 mg tablet 10 mg PO Q12H PRN #30 tab 01/13/19 12/29/21 Rx omeprazole 40 mg capsule,delayed 40 mg PO BID 10/30/19 12/29/21 History release cyclobenzaprine 5 mg tablet 5 mg PO DAILY PRN 03/28/21 12/29/21 History potassium chloride 10 mEq 10 meq PO DIRECTED 03/28/21 12/29/21 History capsule,extended release umeclidinium 62.5 mcg-vilanterol 1 inh INHALATION DAILY 03/28/21 12/29/21 History 25 mcg/actuation powdr for inhalation (Anoro Ellipta) Patient History Medical History (Updated 12/29/21 @ 15:11 by Jocelin Zamora PA-C) Alcohol abuse Alcoholic cirrhosis Anxiety and depression Cirrhosis of liver (11/21/12) treated with harvoni in [facility] pt is now negative COPD (chronic obstructive pulmonary disease) Hepatitis C Hypokalemia Portal hypertension Thrombocytopenia Transaminitis Surgical History History of total right hip replacement History of tubal ligation Family History Mother Cervical cancer Social History Smoking Status: Current every day smoker Tobacco Type: Cigarettes Cigarettes Per Day: 15; Second Hand Exposure: Yes; Hx Alcohol Use: Yes Alcohol type: beer and hard liquor Alcohol Intake Frequency Comment: Patient reports no alcohol since 10/13/2019 Hx Substance Use: No Preferred Language: Slovenian Communication Ability: Effective Rn Psych Required: No Beliefs That Will Affect Care: None marital status: Current Living Situation: Spouse Feels Safe at Home: Yes Assistive Devices: Oxygen - Continuous Review of Systems Review of Systems: All systems reviewed & are unremarkable except as noted in HPI & below Physical Exam Constitutional: WD/WN, vitals as above Eyes: PERRL, conjunctivae normal, anicteric sclerae ENMT: external ear and nose normal, oropharynx normal Respiratory: normal respiratory effort, lungs clear to auscultation Cardiovascular: RRR, no murmur, no edema Gastrointestinal (Abdomen): normal bowel sounds, soft, nontender, no hepatosplenomegaly No significant ascites Skin: no rashes, warm and dry Psychiatric: A+Ox3, euthymic affect Results & Data ([facility]) Vital Signs (Past 12 Hours) Vital Signs Pulse Resp BP Pulse Ox 12/29/21 14:25 102 H 18 102/87 95 Laboratory Results 12/29/21 12/29/21 12/29/21 Range/Units 16:22 14:41 14:41 WBC (4.8-10.8) K/uL RBC (4.2-5.4) M/uL Hgb (12.0-16.0) g/dL Hct (37-47) % MCV (80-100) fL MCH (25-34) pg MCHC (32-36) g/dL RDW Std Deviation (36.4-46.3) fL RDW Coeff of Radha (11.5-14.5) % Plt Count (130-400) K/uL MPV (7.4-10.4) fL Immature Gran % (Auto) % Neut % (Auto) % Lymph % (Auto) % [place] % (Auto) % Eos % (Auto) % Baso % (Auto) % Neut # (Auto) (1.4-6.5) K/uL Lymph # (Auto) (1.2-3.4) K/uL [place] # (Auto) (0.11-0.59) K/uL Eos # (Auto) (0-0.5) K/uL Baso # (Auto) (0-0.2) K/uL Immature Gran # (Auto) (0.00-0.02) K/uL Platelet Estimate (Normal) PT 15.6 H (9.0-12.0) Seconds INR 1.5 H (0.9-1.1) APTT 25.9 (21.0-31.0) Seconds PTT Ratio 0.9 Sodium 142 (136-145) mmol/L Potassium 3.6 (3.5-5.1) mmol/L Chloride 107 (98-107) mmol/L Carbon Dioxide 25 (21-32) mmol/L Anion Gap 10 (3-11) BUN 32 H (6-23) mg/dl Creatinine 0.65 (0.6-1.2) mg/dl Est Cr Clr Drug Dosing 85.9 ml/min Est GFR ( Amer) 114.2 ml/min Est GFR (Non-Af Amer) 98.6 ml/min BUN/Creatinine Ratio 49.2 H (10-20) Glucose 144 H (70-99(Fasting)) mg/dl Calcium 8.3 L (8.5-10.1) mg/dl Total Bilirubin 2.1 H (0.2-1.0) mg/dl AST 40 H (13-39) U/L ALT 15 (7-52) U/L Alkaline Phosphatase 72 (34-104) U/L Total Protein 6.4 (6.0-8.3) gm/dl Albumin 3.0 L (3.4-5.0) gm/dl Globulin 3.4 (2.5-4.0) gm/dl Albumin/Globulin Ratio 0.9 (0.9-2) SARS-CoV-2, RNA, NAAT Pending Blood Type Antibody Screen 12/29/21 12/29/21 Range/Units 14:41 14:41 WBC 7.09 (4.8-10.8) K/uL RBC 2.85 L (4.2-5.4) M/uL Hgb 8.4 L (12.0-16.0) g/dL Hct 25.1 L (37-47) % MCV 88.1 (80-100) fL MCH 29.5 (25-34) pg MCHC 33.5 (32-36) g/dL RDW Std Deviation 51.7 H (36.4-46.3) fL RDW Coeff of Radha 16.1 H (11.5-14.5) % Plt Count 78 L (130-400) K/uL MPV 10.8 H (7.4-10.4) fL Immature Gran % (Auto) 0.3 % Neut % (Auto) 74.5 % Lymph % (Auto) 9.9 % [place] % (Auto) 15.0 % Eos % (Auto) 0.0 % Baso % (Auto) 0.3 % Neut # (Auto) 5.29 (1.4-6.5) K/uL Lymph # (Auto) 0.70 L (1.2-3.4) K/uL [place] # (Auto) 1.06 H (0.11-0.59) K/uL Eos # (Auto) 0.00 (0-0.5) K/uL Baso # (Auto) 0.02 (0-0.2) K/uL Immature Gran # (Auto) 0.02 (0.00-0.02) K/uL Platelet Estimate Decreased L (Normal) PT (9.0-12.0) Seconds INR (0.9-1.1) APTT (21.0-31.0) Seconds PTT Ratio Sodium (136-145) mmol/L Potassium (3.5-5.1) mmol/L Chloride (98-107) mmol/L Carbon Dioxide (21-32) mmol/L Anion Gap (3-11) BUN (6-23) mg/dl Creatinine (0.6-1.2) mg/dl Est Cr Clr Drug Dosing ml/min Est GFR ( Amer) ml/min Est GFR (Non-Af Amer) ml/min BUN/Creatinine Ratio (10-20) Glucose (70-99(Fasting)) mg/dl Calcium (8.5-10.1) mg/dl Total Bilirubin (0.2-1.0) mg/dl AST (13-39) U/L ALT (7-52) U/L Alkaline Phosphatase (34-104) U/L Total Protein (6.0-8.3) gm/dl Albumin (3.4-5.0) gm/dl Globulin (2.5-4.0) gm/dl Albumin/Globulin Ratio (0.9-2) SARS-CoV-2, RNA, NAAT Blood Type Pending Antibody Screen Pending
[2021-12-29 15:21] LABS: Hematocrit (blood only) 25.1 % (37-47); Hemoglobin 8.4 g/dL (12.0-16.0); Mean Corpuscular Hemoglobin 29.5 pg (25-34); Mean Corpuscular Hgb Conc 33.5 g/dL (32-36); Mean Corpuscular Volume 88.1 fL (80-100); RDW Coefficient of Variation 16.1 % (11.5-14.5); RDW Standard Deviation 51.7 fL (36.4-46.3); Red Blood Count 2.85 M/uL (4.2-5.4); White Blood Count 7.09 K/uL (4.8-10.8)
[2021-12-29 15:24] LABS: Albumin Globulin Ratio 0.9 (0.9-2); BUN Creatinine Ratio 49.2 (10-20); Bilirubin,Total 2.1 mg/dl (0.2-1.0); Calcium 8.3 mg/dl (8.5-10.1); Creatinine Clr Calc Pharmacy 85.9 ml/min; Est GFR (African American) 114.2 ml/min; Est GFR (Non-African American) 98.6 ml/min; Globulin 3.4 gm/dl (2.5-4.0); Potassium 3.6 mmol/L (3.5-5.1); Total Protein 6.4 gm/dl (6.0-8.3)
[2021-12-29] MEDS: OCTREOTIDE ACETATE 500 MCG in DEXTROSE 5% 100 ML IV SCH (15:29)
[2021-12-29 15:35] LABS: Basophils # (auto) 0.02 K/uL (0-0.2); Basophils % (auto) 0.3 %; Immature Granulocytes # (auto) 0.02 K/uL (0.00-0.02); Immature Granulocytes % (auto) 0.3 %; Lymphocytes % (auto) 9.9 %; Mean Platelet Volume 10.8 fL (7.4-10.4); Monocytes # (auto) 1.06 K/uL (0.11-0.59); Neutrophils # (auto) 5.29 K/uL (1.4-6.5); Neutrophils % (auto) 74.5 %; Platelet Count 78 K/uL (130-400); Platelet Estimate Decreased (Normal)
[2021-12-29] MEDS: PANTOprazole 40 MG in DEXTROSE 5% 100 ML IV SCH ×2 (15:54→22:02)
--- NOTE | 2021-12-29 18:53 | History & Physical Report ---
Date of Service December 29, 2021 Assessment & Plan (1) Acute upper gastrointestinal bleeding: (2) Alcoholic cirrhosis: (3) Hx of esophageal varices: Plan: Admit to telemetry Patient presenting from home with reports of hematemesis, coffee-ground emesis, dark tarry stools History of alcoholic cirrhosis with esophageal varices, ascites, portal hypertensive gastropathy. Had been sober for several months however started drinking again 1 month ago, last drink yesterday morning. Ascites previously managed with spironolactone however patient self stopped a couple months ago. No ascites evident on exam today. In the ED, hemodynamically stable. Hgb 8.4, platelets 78K. INR 1.5 S/p octreotide bolus/drip and Protonix bolus/drip in ED -- continue both S/p ceftriaxone in ED -- continue N.p.o. GI consult, planning on EGD tomorrow Trend H&H, transfuse as needed Alcohol withdrawal protocol with gabapentin (4) COPD (chronic obstructive pulmonary disease): Plan: No signs of acute exacerbation, continue home inhalers (5) DVT prophylaxis: Plan: SCDs due to GI bleeding History of Present Illness Chief Complaint: Vomiting Primary Care Provider: Sumi Dailey, 56-year-old female with PMH COPD, alcoholic cirrhosis with portal hypertensive gastropathy, esophageal varices, ascites, hepatitis C s/p treatment, depression, and other problems listed below who presents to the ED for evaluation of vomiting. Patient reports a longstanding history of alcohol abuse and states she had several months of sobriety until a month ago when she began drinking again. Patient reports initially only having an occasional beer however slowly increased to drinking a half pint of bourbon per day, last drink being yesterday morning. Patient reports she developed vomiting last evening. Reports she has had several episodes of hematemesis and coffee-ground emesis. Reports associated black tarry stools and epigastric pain. No chest pain or shortness of breath. Denies lightheadedness, dizziness, diaphoresis, syncopal events. Reports being unsteady on her feet which she attributes to alcohol use. No fevers or chills. Denies urinary symptoms. In the ED, patient is hemodynamica lly stable. Labs show Hgb 8.4, platelets 78K. Patient was given IV ceftriaxone, IV famotidine, IV Dilaudid, IV octreotide bolus and drip, IV Protonix bolus and drip, IVF. Allergies Allergy/AdvReac Type Severity Reaction Status Date / Time codeine AdvReac Severe upset Verified 03/28/21 01:00 stomach Home Medications Medication Instructions Recorded Confirmed Type albuterol sulfate 90 mcg/actuation 2 puff INHALATION Q6H PRN 01/08/19 12/29/21 History aerosol inhaler hydroxyzine HCl 10 mg tablet 10 mg PO Q12H PRN #30 tab 01/13/19 12/29/21 Rx omeprazole 40 mg capsule,delayed 40 mg PO BID 10/30/19 12/29/21 History release cyclobenzaprine 5 mg tablet 5 mg PO DAILY PRN 03/28/21 12/29/21 History potassium chloride 10 mEq 10 meq PO BID 03/28/21 12/29/21 History capsule,extended release umeclidinium 62.5 mcg-vilanterol 1 inh INHALATION DAILY 03/28/21 12/29/21 History 25 mcg/actuation powdr for inhalation (Anoro Ellipta) folic acid 1 mg tablet 1 mg PO DAILY 12/29/21 12/29/21 History multivitamin 1 tab PO DAILY 12/29/21 12/29/21 History spironolactone 25 mg tablet 25 mg PO DAILY 12/29/21 12/29/21 History thiamine HCl (vitamin B1) 100 mg 100 mg PO DAILY 12/29/21 12/29/21 History tablet Past Med/Surg History Medical History Alcohol abuse Alcoholic cirrhosis Anxiety and depression Ascites Cirrhosis of liver (11/21/12) COPD (chronic obstructive pulmonary disease) Hepatitis C treated with harvoni in [facility] pt is now negative Hypokalemia Portal hypertension Thrombocytopenia Transaminitis Surgical History History of total right hip replacement History of tubal ligation Family History Mother Cervical cancer Social History Smoking Status: Current every day smoker Tobacco Type: Cigarettes Cigarettes Per Day: 2; Second Hand Exposure: No; Do You Dip or Chew Tobacco: No; Tobacco Cessation Education Requested by Patient: No Hx Alcohol Use: Yes Alcohol type: beer and hard liquor Hx Substance Use: No Preferred Language: Armenian Communication Ability: Effective Post Partum Nurse Required: No Beliefs That Will Affect Care: None marital status: Current Living Situation: Spouse Other Information That Helps Us Care for You: No Feels Safe at Home: Yes Safety Concerns: Feels Safe At This Time Assistive Devices: Glasses and Oxygen - at Night Review of Systems Review of Systems: ROS per HPI, all other systems reviewed and negative Physical Exam Constitutional: WD/WN, vitals as above Eyes: PERRL, conjunctivae normal, anicteric sclerae ENMT: external ear and nose normal, oropharynx normal Respiratory: normal respiratory effort, lungs clear to auscultation Cardiovascular: Rate/Rhythm: regular rate and regular rhythm Vessels: normal peripheral pulses Extremities: no edema Gastrointestinal (Abdomen): Inspection/Auscultation: normal bowel sounds Percussion/Palpation: + abdomen tender (Epigastric) and abdomen soft; no hepatosplenomegaly Musculoskeletal: no cyanosis or clubbing, extremities motor strength 5/5 Skin: no rashes, warm and dry Neurologic: PERRL, EOMI, accommodation nl, no face palsy, no dysarthria Psychiatric: A+Ox3, euthymic affect Results & Data Results & Data ([facility]) Vital Signs (Past 12 Hours) Vital Signs Pulse Pulse Resp BP BP Pulse Ox 12/29/21 18:35 90 18 119/87 99 12/29/21 18:00 90 18 119/87 99 12/29/21 16:52 87 L 12/29/21 16:01 97 H 18 118/90 91 12/29/21 14:25 102 H 18 102/87 95 Code Status & VTE Plan Code Status Patient is a full code as per my discussion with her. VTE Prophylaxis Plan VTE Prophylaxis will be ordered: Yes Supervising Physician Co-Signing Physician Notes 56-year-old lady with PMH of EtOH cirrhosis, hep C [Tx, SVR achieved), varices, ascites, recent EGD/12/11 showing G2EV, thrombocytopenia, portal hypertension, COPD presented 12/29 to our ED with complaints of red blood to coffee-ground emesis since yesterday evening and black tarry stool. Patient reports nausea and projectile vomiting. Patient reports vomiting and nausea improved after being given antiemetic by EMS. Of note, patient reports relapsing into drinking multiple times over several years. Patient has a long history of alcohol abuse, was sober until 1 month ago when she felt that she was doing better and decided to treat herself with 1 drink which led to another and another and finally she could not quit drinking and her last drink was yesterday evening. Patient reports quitting smoking couple of weeks ago, reports smoking whole life with an average of 1 packs a day. Patient denies any use of drugs or marijuana. Patient reports some dizziness and some headache, denies any fever or any acute changes in her bladder habit. Admitting hemoglobin of 8.4, BUN elevated, continue to monitor hemoglobin every 8 hours or as appropriate. Blood consent obtained. Transfuse for hemoglobin less than 7 or symptomatic anemia. IVF. AWSS protocol. GI already evaluated, continue with Protonix and octreotide drip. N.p.o. for now. Likely EGD tomorrow. Prophylactic IV antibiotic due to variceal bleeding concerns. INR elevated at 1.5 d/t chronic liver condition, small iv dose of vitamin K. INR in AM. Upon examination: GENERAL: Alert and oriented x3. NAD, on RA. HEENT: No pallor, no icterus. Pupils equal, round and reactive to light. Oral mucosa moist. NECK: No JVD, no neck masses. HEART: S1 and S2 heard. Regular rate and rhythm. No murmur, no gallop. RESPIRATORY SYSTEM: Normal AP diameter. No accessory muscle use. No wheezing, no crackles. ABDOMEN: Soft, bowel sounds present, nontender, no distention. CENTRAL NERVOUS SYSTEM: No facial droop. Speech is clear. Obeys simple commands. Moves extremities. EXTREMITIES: No edema, no erythema seen. I have seen and examined the patient and have discussed the case with the provider above. I agree with the assessment and plan as stated.
[2021-12-29] MEDS ORDERED: PHYTONADIONE 2.5 MG in DEXTROSE 5% 50 ML IV ONE (19:00)
[2021-12-29] MEDS ORDERED: GABAPENTIN 1200MG ALCOHOL WITHDRAWAL LOAD PO STA (19:13)
[2021-12-29] MEDS ORDERED: GABAPENTIN 600 MG TAB PO ONE (19:13)
[2021-12-29] MEDS ORDERED: LORazepam 2 MG/1 ML VIAL IV PRN ×2 (19:13)
[2021-12-29] MEDS ORDERED: ONDANSETRON INJ 2 MG/ML 2 ML VIAL IV PRN (19:13)
[2021-12-29] MEDS ORDERED: ATIVAN IV ALCOHOL WITHDRAWL IV PRN (19:13)
[2021-12-29] MEDS ORDERED: MULTI-VITAMIN INFUSION 10 ML, THIAMINE HCL 100 MG, FOLIC ACID 1 MG in SODIUM CHLORIDE 0... IV ONE (19:30)
[2021-12-29] MEDS: LORazepam 2 MG/1 ML VIAL IV PRN (20:05)
[2021-12-29] MEDS: THIAMINE HCL 100 MG TAB PO SCH (20:17)
[2021-12-29] MEDS: FOLIC ACID 1 MG TAB PO SCH (20:18)
[2021-12-29 21:10] LABS: Hematocrit (blood only) 21.4 % (37-47); Hemoglobin 6.9 g/dL (12.0-16.0)
[2021-12-29] MEDS ORDERED: SODIUM CHLORIDE 0.9% 250 ML IV PRN (21:24)
[2021-12-29] MEDS ORDERED: THIAMINE HCL 100 MG in SYRINGE 9 ML IV STA (22:20)
[2021-12-29] MEDS ORDERED: PANTOprazole 40 MG in SYRINGE 0 ML IV ONE (22:40)
[2021-12-29] MEDS: SODIUM CHLORIDE 0.9% 1000ML 1,000 ML IV SCH (23:53)
[2021-12-30] MEDS: OCTREOTIDE ACETATE 500 MCG in DEXTROSE 5% 100 ML IV SCH ×3 (00:31→23:08)
[2021-12-30] MEDS: PANTOprazole 40 MG in DEXTROSE 5% 100 ML IV SCH ×5 (00:45→23:07)
[2021-12-30 03:51] LABS: Hematocrit (blood only) 22.7 % (37-47); Hemoglobin 7.5 g/dL (12.0-16.0); Mean Corpuscular Hemoglobin 29.2 pg (25-34); Mean Corpuscular Volume 88.3 fL (80-100); RDW Standard Deviation 51.3 fL (36.4-46.3); Red Blood Count 2.57 M/uL (4.2-5.4); White Blood Count 4.32 K/uL (4.8-10.8)
[2021-12-30 04:07] LABS: Mean Platelet Volume 11.8 fL (7.4-10.4); Platelet Count 46 K/uL (130-400)
[2021-12-30 04:09] LABS: BUN Creatinine Ratio 34.2 (10-20); Creatinine Clr Calc Pharmacy 76.5 ml/min; Est GFR (Non-African American) 91.4 ml/min; Magnesium 1.5 mg/dl (1.7-2.4); Phosphorus 2.6 mg/dl (2.5-4.9); Potassium 3.6 mmol/L (3.5-5.1)
[2021-12-30] MEDS: GABAPENTIN 600 MG TAB PO SCH ×3 (05:42→22:07)
[2021-12-30] MEDS: SODIUM CHLORIDE 0.9% 1000ML 1,000 ML IV SCH ×3 (05:57→23:08)
--- NOTE | 2021-12-30 08:59 | Hospitalist Progress Note ---
Date of Service December 30, 2021 Assessment & Plan (1) Acute upper gastrointestinal bleeding: (2) Alcoholic cirrhosis: (3) Hx of esophageal varices: Plan: Admitted to telemetry Patient presenting from home with reports of hematemesis, coffee-ground emesis, dark tarry stools History of alcoholic cirrhosis with esophageal varices, ascites, portal hypertensive gastropathy. Had been sober for several months however started drinking again 1 month ago, last drink yesterday morning. Ascites previously managed with spironolactone however patient self stopped a couple months ago. No ascites evident on exam now. In the ED, hemodynamically stable. Hgb 8.4, platelets 78K. INR 1.5 S/p octreotide bolus/drip and Protonix bolus/drip in ED -- continue both S/p ceftriaxone in ED -- continue N.p.o. GI consult, planning on EGD today Trend H&H, transfuse as needed Hgb overnight down to 6.9 -received 1 unit of PRBCs (12/30) Alcohol withdrawal protocol with gabapentin, ativan (4) COPD (chronic obstructive pulmonary disease): Plan: No signs of acute exacerbation, continue home inhalers (5) DVT prophylaxis: Plan: SCDs due to GI bleeding Admission and Anticipated Discharge Date Admission Date: December 29, 2021 Subjective Patient seen in follow-up of GI bleed Overnight required blood transfusion, 1 unit, current hemoglobin this a.m. is 7.5 Patient seen by GI yesterday, plan for EGD today Patient lying in bed in no acute distress Denies any more emesis or BMs No fevers chills chest pain shortness of breath significant abdominal pain Review of Systems 2 Review of Systems: All systems reviewed & are unremarkable except as noted in Subjective Physical Exam Physical Exam: Constitutional:L WD/WN, in NAD Eyes: PERRL, EOMI, conju nctivae normal, an icteric sclerae ENMT: external ear and n ose normal, oropha rynx normal Respiratory: normal respiratory effort, lungs twin ar to auscultation Cardiovascular:L Rate/Rhythm: regul ar rate and regula r rhythm Vessels: normal peripheral pulses Extremiti es: no edema Gastrointestinal ( Abdomen): Inspection/Auscult ation: normal marlin l sounds Percussi on/Palpation: + ab domen slightly ten triny to palp., soft Musculoskeletal: extremities motor strength 5/5 Skin: no rashes, warm an d dry Neurologic: PERRL, EOMI, no fa ce palsy, no dysar thria Psychiatric: A+Ox3, euthymic af fect Results & Data Results & Data ([facility]) Vital Signs (Past 12 Hours) Vital Signs Temp Pulse Resp BP Pulse Ox 12/30/21 02:33 37 C 87 106/65 96 12/30/21 01:49 93 H 16 86/50 L 94 12/30/21 00:49 95 H 18 84/49 L 96 12/30/21 00:19 97 H 84/52 L 96 12/30/21 00:04 36.7 C 94 H 16 82/49 L 96 12/29/21 23:46 36.8 C 97 H 16 95/57 L 94 Laboratory Results 12/30/21 12/30/21 12/29/21 Range/Units 03:22 03:22 20:58 WBC 4.32 L (4.8-10.8) K/uL RBC 2.57 L (4.2-5.4) M/uL Hgb 7.5 L 6.9 L* (12.0-16.0) g/dL Hct 22.7 L 21.4 L (37-47) % MCV 88.3 (80-100) fL MCH 29.2 (25-34) pg MCHC 33.0 (32-36) g/dL RDW Std Deviation 51.3 H (36.4-46.3) fL RDW Coeff of Radha 16.0 H (11.5-14.5) % Plt Count 46 L (130-400) K/uL MPV 11.8 H (7.4-10.4) fL Immature Gran % (Auto) % Neut % (Auto) % Lymph % (Auto) % [place] % (Auto) % Eos % (Auto) % Baso % (Auto) % Neut # (Auto) (1.4-6.5) K/uL Lymph # (Auto) (1.2-3.4) K/uL [place] # (Auto) (0.11-0.59) K/uL Eos # (Auto) (0-0.5) K/uL Baso # (Auto) (0-0.2) K/uL Immature Gran # (Auto) (0.00-0.02) K/uL Platelet Estimate (Normal) PT (9.0-12.0) Seconds INR (0.9-1.1) APTT (21.0-31.0) Seconds PTT Ratio Sodium 140 (136-145) mmol/L Potassium 3.6 (3.5-5.1) mmol/L Chloride 110 H (98-107) mmol/L Carbon Dioxide 26 (21-32) mmol/L Anion Gap 4 (3-11) BUN 25 H (6-23) mg/dl Creatinine 0.73 (0.6-1.2) mg/dl Est Cr Clr Drug Dosing 76.5 ml/min Est GFR ( Amer) 106.0 ml/min Est GFR (Non-Af Amer) 91.4 ml/min BUN/Creatinine Ratio 34.2 H (10-20) Glucose 105 H (70-99(Fasting)) mg/dl Calcium 7.0 L (8.5-10.1) mg/dl Phosphorus 2.6 (2.5-4.9) mg/dl Magnesium 1.5 L (1.7-2.4) mg/dl Total Bilirubin (0.2-1.0) mg/dl AST (13-39) U/L ALT (7-52) U/L Alkaline Phosphatase (34-104) U/L Total Protein (6.0-8.3) gm/dl Albumin (3.4-5.0) gm/dl Globulin (2.5-4.0) gm/dl Albumin/Globulin Ratio (0.9-2) SARS-CoV-2, RNA, NAAT (NEGATIVE) Blood Type Antibody Screen Crossmatch 12/29/21 12/29/21 12/29/21 Range/Units 16:22 14:41 14:41 WBC (4.8-10.8) K/uL RBC (4.2-5.4) M/uL Hgb (12.0-16.0) g/dL Hct (37-47) % MCV (80-100) fL MCH (25-34) pg MCHC (32-36) g/dL RDW Std Deviation (36.4-46.3) fL RDW Coeff of Radha (11.5-14.5) % Plt Count (130-400) K/uL MPV (7.4-10.4) fL Immature Gran % (Auto) % Neut % (Auto) % Lymph % (Auto) % [place] % (Auto) % Eos % (Auto) % Baso % (Auto) % Neut # (Auto) (1.4-6.5) K/uL Lymph # (Auto) (1.2-3.4) K/uL [place] # (Auto) (0.11-0.59) K/uL Eos # (Auto) (0-0.5) K/uL Baso # (Auto) (0-0.2) K/uL Immature Gran # (Auto) (0.00-0.02) K/uL Platelet Estimate (Normal) PT 15.6 H (9.0-12.0) Seconds INR 1.5 H (0.9-1.1) APTT 25.9 (21.0-31.0) Seconds PTT Ratio 0.9 Sodium 142 (136-145) mmol/L Potassium 3.6 (3.5-5.1) mmol/L Chloride 107 (98-107) mmol/L Carbon Dioxide 25 (21-32) mmol/L Anion Gap 10 (3-11) BUN 32 H (6-23) mg/dl Creatinine 0.65 (0.6-1.2) mg/dl Est Cr Clr Drug Dosing 85.9 ml/min Est GFR ( Amer) 114.2 ml/min Est GFR (Non-Af Amer) 98.6 ml/min BUN/Creatinine Ratio 49.2 H (10-20) Glucose 144 H (70-99(Fasting)) mg/dl Calcium 8.3 L (8.5-10.1) mg/dl Phosphorus (2.5-4.9) mg/dl Magnesium (1.7-2.4) mg/dl Total Bilirubin 2.1 H (0.2-1.0) mg/dl AST 40 H (13-39) U/L ALT 15 (7-52) U/L Alkaline Phosphatase 72 (34-104) U/L Total Protein 6.4 (6.0-8.3) gm/dl Albumin 3.0 L (3.4-5.0) gm/dl Globulin 3.4 (2.5-4.0) gm/dl Albumin/Globulin Ratio 0.9 (0.9-2) SARS-CoV-2, RNA, NAAT NEGATIVE (NEGATIVE) Blood Type Antibody Screen Crossmatch 12/29/21 12/29/21 Range/Units 14:41 14:41 WBC 7.09 (4.8-10.8) K/uL RBC 2.85 L (4.2-5.4) M/uL Hgb 8.4 L (12.0-16.0) g/dL Hct 25.1 L (37-47) % MCV 88.1 (80-100) fL MCH 29.5 (25-34) pg MCHC 33.5 (32-36) g/dL RDW Std Deviation 51.7 H (36.4-46.3) fL RDW Coeff of Radha 16.1 H (11.5-14.5) % Plt Count 78 L (130-400) K/uL MPV 10.8 H (7.4-10.4) fL Immature Gran % (Auto) 0.3 % Neut % (Auto) 74.5 % Lymph % (Auto) 9.9 % [place] % (Auto) 15.0 % Eos % (Auto) 0.0 % Baso % (Auto) 0.3 % Neut # (Auto) 5.29 (1.4-6.5) K/uL Lymph # (Auto) 0.70 L (1.2-3.4) K/uL [place] # (Auto) 1.06 H (0.11-0.59) K/uL Eos # (Auto) 0.00 (0-0.5) K/uL Baso # (Auto) 0.02 (0-0.2) K/uL Immature Gran # (Auto) 0.02 (0.00-0.02) K/uL Platelet Estimate Decreased L (Normal) PT (9.0-12.0) Seconds INR (0.9-1.1) APTT (21.0-31.0) Seconds PTT Ratio Sodium (136-145) mmol/L Potassium (3.5-5.1) mmol/L Chloride (98-107) mmol/L Carbon Dioxide (21-32) mmol/L Anion Gap (3-11) BUN (6-23) mg/dl Creatinine (0.6-1.2) mg/dl Est Cr Clr Drug Dosing ml/min Est GFR ( Amer) ml/min Est GFR (Non-Af Amer) ml/min BUN/Creatinine Ratio (10-20) Glucose (70-99(Fasting)) mg/dl Calcium (8.5-10.1) mg/dl Phosphorus (2.5-4.9) mg/dl Magnesium (1.7-2.4) mg/dl Total Bilirubin (0.2-1.0) mg/dl AST (13-39) U/L ALT (7-52) U/L Alkaline Phosphatase (34-104) U/L Total Protein (6.0-8.3) gm/dl Albumin (3.4-5.0) gm/dl Globulin (2.5-4.0) gm/dl Albumin/Globulin Ratio (0.9-2) SARS-CoV-2, RNA, NAAT (NEGATIVE) Blood Type B Positive Antibody Screen NEGATIVE Crossmatch See Detail Medications Administered Current Inpatient Medications Acetaminophen (Acetaminophen 325 Mg Tab) 650 mg PO Q4H PRN PRN Reason: Pain or Fever Stop: 01/28/22 19:12 Folic Acid (Folic Acid 1 Mg Tab) 1 mg PO QAM STEPHAN Stop: 01/28/22 19:12 Last Admin: 12/29/21 20:18 Dose: 1 mg Documented by: Gabapentin (Gabapentin 600 Mg Tab) 600 mg PO Q6H STEPHAN Stop: 12/30/21 12:01 Last Admin: 12/30/21 05:42 Dose: 600 mg Documented by: Gabapentin (Gabapentin 600 Mg Tab) 600 mg PO Q8H STEPHAN Stop: 12/31/21 14:01 Gabapentin (Gabapentin 600 Mg Tab) 600 mg PO Q12H STEPHAN Stop: 01/01/22 12:01 Gabapentin (Gabapentin 600 Mg Tab) 600 mg PO Q24H STEPHAN Stop: 01/02/22 12:01 Pantoprazole Sodium 40 mg/ (Dextrose) 100 mls @ 20 mls/hr IV Q5H STEPHAN Stop: 01/28/22 14:44 Last Admin: 12/30/21 05:42 Dose: 8 mg/hr, 20 mls/hr Documented by: Octreotide Acetate 500 mcg/ (Dextrose) 100.5 mls @ 10.05 mls/hr IV .Q10H STEPHAN Stop: 01/28/22 14:29 Last Admin: 12/30/21 00:31 Dose: 50 mcg/hr, 10.1 mls/hr Documented by: Sodium Chloride (Nss 1000ml) 1,000 mls @ 125 mls/hr IV .Q8H STEPHAN Stop: 01/28/22 21:59 Last Admin: 12/30/21 05:57 Dose: 125 mls/hr Documented by: Ceftriaxone Sodium 2,000 mg/ (Dextrose) 70 mls @ 100 mls/hr IV Q24H STEPHAN; Protocol Stop: 01/09/22 13:59 Lorazepam (Lorazepam 2 Mg/1 Ml Vial) 1 mg IV UD PRN; Protocol PRN Reason: EtOH Withdrawl AWSS Score 6,7 Stop: 01/28/22 19:12 Last Admin: 12/29/21 20:05 Dose: 1 mg Documented by: Lorazepam (Lorazepam 2 Mg/1 Ml Vial) 2 mg IV UD PRN; Protocol PRN Reason: EtOH Withdrawl AWSS Score 8,9 Stop: 01/28/22 19:12 Lorazepam (Lorazepam 2 Mg/1 Ml Vial) 3 mg IV ONCE PRN; Protocol PRN Reason: EtOH Withdrawl AWSS Score >=10 Stop: 01/28/22 19:12 Ondansetron HCl (Ondansetron Inj 2 Mg/Ml 2 Ml Vial) 4 mg IV Q6H PRN PRN Reason: Nausea And Vomiting Stop: 01/28/22 19:12 Thiamine HCl (Thiamine Hcl 100 Mg Tab) 100 mg PO QAM [facility] Stop: 01/28/22 19:12 Last Admin: 12/29/21 20:17 Dose: 100 mg Documented by: Umeclidinium/Vilanterol (Umeclidinium/Vilanterol 62.5/25mcg 7 Puffs/Inhaler) 1 puffs INH DAILY [facility] Stop: 01/29/22 08:59
[2021-12-30] MEDS: THIAMINE HCL 100 MG TAB PO SCH (09:39)
[2021-12-30] MEDS: UMECLIDINIUM/VILANTEROL 62.5/25MCG 7 PUFFS/INHALER INH SCH (09:39)
[2021-12-30] MEDS: FOLIC ACID 1 MG TAB PO SCH (09:39)
[2021-12-30] MEDS ORDERED: MAGNESIUM SULFATE / D5W 1 GM/100 ML BAG IV ONE (09:45)
[2021-12-30 09:46] LABS: Hematocrit (blood only) 23.4 % (37-47); Hemoglobin 7.8 g/dL (12.0-16.0)
[2021-12-30] MEDS: LORazepam 2 MG/1 ML VIAL IV PRN (10:28)
--- NOTE | 2021-12-30 13:16 | Anesthesiology Consultation ---
Date of Service December 30, 2021 Assessment & Plan (1) Encounter for pre-operative examination: History Surgery Operation Date: 12/30/21 16:30 Proposed Procedures p Esophagogastroduodenoscopy Dr Kowalski - Monique Kowalski MD Height/Weight Height: 5 ft 5 in Weight: 59.8 kg Allergies Allergy/AdvReac Type Severity Reaction Status Date / Time codeine AdvReac Severe upset Verified 03/28/21 01:00 stomach Medications Home Medications Medication Instructions Recorded Confirmed Last Taken albuterol sulfate 90 mcg/actuation 2 puff INHALATION Q6H PRN 01/08/19 12/29/21 Unknown aerosol inhaler hydroxyzine HCl 10 mg tablet 10 mg PO Q12H PRN #30 tab 01/13/19 12/29/21 12/29/21 omeprazole 40 mg capsule,delayed 40 mg PO BID 10/30/19 12/29/21 12/29/21 release cyclobenzaprine 5 mg tablet 5 mg PO DAILY PRN 03/28/21 12/29/21 Unknown potassium chloride 10 mEq 10 meq PO BID 03/28/21 12/29/21 12/29/21 capsule,extended release umeclidinium 62.5 mcg-vilanterol 1 inh INHALATION DAILY 03/28/21 12/29/21 03/27/21 25 mcg/actuation powdr for inhalation (Anoro Ellipta) folic acid 1 mg tablet 1 mg PO DAILY 12/29/21 12/29/21 Unknown multivitamin 1 tab PO DAILY 12/29/21 12/29/21 Unknown spironolactone 25 mg tablet 25 mg PO DAILY 12/29/21 12/29/21 Unknown thiamine HCl (vitamin B1) 100 mg 100 mg PO DAILY 12/29/21 12/29/21 Unknown tablet Active Medications Generic Name Dose Route Start Last Admin Trade Name Freq PRN Reason Stop Dose Admin Folic Acid 1 mg 12/29/21 19:13 12/30/21 09:39 Folic Acid 1 Mg Tab PO 01/28/22 19:12 1 mg QAM STEPHAN Administration Pantoprazole Sodium 40 mg/ 100 mls @ 20 mls/hr 12/29/21 14:45 12/30/21 10:35 Dextrose IV 01/28/22 14:44 8 mg/hr Q5H STEPHAN 20 mls/hr Administration 8 MG/HR Octreotide Acetate 500 mcg/ 100.5 mls @ 10.05 mls/hr 12/29/21 14:30 12/30/21 11:40 Dextrose IV 01/28/22 14:29 50.25 mcg/hr .Q10H STEPHAN 10.1 mls/hr Administration 50 MCG/HR Sodium Chloride 1,000 mls @ 125 mls/hr 12/29/21 22:00 12/30/21 05:57 Nss 1000ml IV 01/28/22 21:59 125 mls/hr .Q8H STEPHAN Administration Lorazepam 1 mg 12/29/21 19:13 12/30/21 10:28 Lorazepam 2 Mg/1 Ml Vial IV 01/28/22 19:12 1 mg UD PRN Administration EtOH Withdrawl AWSS Score 6,7 Protocol Thiamine HCl 100 mg 12/29/21 19:13 12/30/21 09:39 Thiamine Hcl 100 Mg Tab PO 01/28/22 19:12 100 mg QAM STEPHAN Administration Umeclidinium/Vilanterol 1 puffs 12/30/21 09:00 12/30/21 09:39 Umeclidinium/Vilanterol 62.5/25mcg 7 Puffs/Inhaler INH 01/29/22 08:59 1 puffs DAILY STEPHAN Administration Past Medical History Medical History Alcohol abuse Alcoholic cirrhosis Anxiety and depression Ascites Cirrhosis of liver (11/21/12) COPD (chronic obstructive pulmonary disease) Hepatitis C treated with harvoni in [facility] pt is now negative Hypokalemia Portal hypertension Thrombocytopenia Transaminitis Past Family History Family History Mother Cervical cancer Past Surgical History Surgical History History of total right hip replacement History of tubal ligation Social History Smoking Status: Current every day smoker tobacco type: cigarettes Smoking cigarettes per day: 2 Do You Dip or Chew Tobacco: No Hx Alcohol Use: Yes Alcohol type: beer and hard liquor alcohol intake frequency: 0-2 drinks per day Alcohol Intake Frequency Comment: Pint of bourban per day Hx Substance Use: No substance use type: does not use Last Used Substance: Days (ago) Last Used Substance Other:: last month Physical Exam Vital Signs Last Vital Signs Temp 37.0 C 12/30/21 11:40 Pulse 89 12/30/21 11:40 Resp 18 12/30/21 11:40 BP 93/61 L 12/30/21 11:40 Pulse Ox 92 12/30/21 11:40 Testing Laboratory Results 12/30/21 09:26 12/30/21 03:22 PT 15.6 Seconds (9.0-12.0) H 12/29/21 14:41 INR 1.5 (0.9-1.1) H 12/29/21 14:41 APTT 25.9 Seconds (21.0-31.0) 12/29/21 14:41 Blood Type B Positive 12/29/21 14:41 Antibody Screen NEGATIVE 12/29/21 14:41
--- NOTE | 2021-12-30 13:24 | History & Physical Bridge Note ---
Date of Service December 30, 2021 History & Physical Bridge Note I have examined the patient, reviewed the History & Physical and in the interval since the performance of the History & Physical I have noted the following changes of clinical significance: no changes noted EGD today Patient was explained in detail regarding risks, benefits, limitations and alternatives of the above endoscopic procedure. Risks of intravenous sedation used for procedure were also explained. Risks include, but not limited to perforation, bleeding, infection, respiratory distress, cardiac arrest and . Patient is also aware about the possibility of missed lesion. Patient's questions were answered. The patient verbalized understanding the information and agreed to undergo the procedure.
[2021-12-30] MEDS ORDERED: LIDOCAINE 2% 2 ML VIAL/AMP(20MG/ML) INFIL ONE (13:32)
[2021-12-30] MEDS ORDERED: PROPOFOL IV EMULSION 10 MG/ML 20 ML VIAL IV ONE ×2 (13:32→14:01)
[2021-12-30] MEDS ORDERED: ALBUTEROL HFA INHALER 8.5 GM ONE (13:32)
[2021-12-30] MEDS ORDERED: ONDANSETRON INJ 2 MG/ML 2 ML VIAL ONE (13:32)
--- NOTE | 2021-12-30 14:01 | GI REPORT ---
Patient Name: Jeni Zhu Procedure Date: 12/30/2021 1:28 PM Date of : 1965 Admit Type: Inpatient Age: 56 Gender: Female Attending MD: Monique Kowalski MD Procedure: Upper GI endoscopy Providers: Monique Kowalski MD Referring MD: Delta Wiley Md Indications: Hematemesis Medicines: Propofol per Anesthesia Complications: No immediate complications. Estimated Blood Loss: Estimated blood loss: none. Procedure: Pre-Anesthesia Assessment: - Prior to the procedure, a History and Physical was performed, and patient medications, allergies and sensitivities were reviewed. The patient's tolerance of previous anesthesia was reviewed. - The risks and benefits of the procedure and the sedation options and risks were discussed with the patient. All questions were answered and informed consent was obtained. - Patient identification and proposed procedure were verified prior to the procedure by the physician and the nurse. The procedure was verified in the procedure room. - Pre-procedure physical examination revealed no contraindications to sedation. After obtaining informed consent, the endoscope was passed under direct vision. Throughout the procedure, the patient's blood pressure, pulse, and oxygen saturations were monitored continuously. The Endoscope was introduced through the mouth, and advanced to the second part of duodenum. The upper GI endoscopy was accomplished without difficulty. The patient tolerated the procedure well. Findings: The Z-line was regular and was found 36 cm from the incisors. Two columns of grade III, large (> 5 mm) varices with stigmata of recent bleeding were found in the lower third of the esophagus. Red apolonia signs and a nipple sign were present. Scarring from prior treatment was visible. Four bands were successfully placed with complete eradication, resulting in deflation of varices. There was no bleeding at the end of the procedure. Severe portal hypertensive gastropathy was found in the gastric body. The duodenal bulb and second portion of the duodenum were normal. Impression: - Grade III and large (> 5 mm) esophageal varices with stigmata of recent bleeding. Banded. - Portal hypertensive gastropathy. - Normal duodenal bulb and second portion of the duodenum. Recommendation: - Return patient to [facility] for ongoing care. - NPO today then clear liquids tomorrow then full liquids the day after then advance as tolerated. - Repeat upper endoscopy in 2 months for retreatment. - Continue IV PPI and Octreotide drip for 2 more days. - IV Abx. Monique Kowalski MD 12/30/2021 2:01:13 PM This report has been signed electronically. Note Initiated On: 12/30/2021 1:28 PM Number of Addenda: 0 I attest to the content of the Intraoperative Record and orders documented therein, exceptions below {[id number]}
--- NOTE | 2021-12-30 14:20 | Anesthesiology Progress Note ---
Date of Service December 30, 2021 Anesthesia Post Procedure Vital Signs Vital Signs: Temp Pulse Pulse Resp BP BP Pulse Ox 12/30/21 14:15 77 16 112/78 94 12/30/21 14:00 86 16 108/72 96 12/30/21 13:18 36.7 C 84 18 99/65 L 92 12/30/21 11:40 37.0 C 89 18 93/61 L 92 12/30/21 08:00 36.7 C 90 18 93/63 L 89 L 12/30/21 02:33 37 C 87 106/65 96 12/30/21 01:49 93 H 16 86/50 L 94 12/30/21 00:49 95 H 18 84/49 L 96 12/30/21 00:19 97 H 84/52 L 96 12/30/21 00:04 36.7 C 94 H 16 82/49 L 96 12/29/21 23:46 36.8 C 97 H 16 95/57 L 94 12/29/21 19:00 37.0 C 97 H 18 116/75 92 12/29/21 18:35 90 18 119/87 99 12/29/21 18:00 90 18 119/87 99 12/29/21 16:52 87 L 12/29/21 16:01 97 H 18 118/90 91 12/29/21 14:25 102 H 18 102/87 95 Pain Intensity Abdomen: Pain Intensity: 2 Transfer of Care Handoff Completed per policy Notes Mental Status: alert / awake / arousable Patient Amnestic to Procedure: Yes Nausea / Vomiting: adequately controlled Pain: adequately controlled Airway Patency, RR, SpO2: stable & adequate BP & HR: stable & adequate Hydration State: stable & adequate Anesthetic Complications: no major complications apparent and Pt Satisfied with anesthetic care
[2021-12-30] MEDS: cefTRIAXone SODIUM 2,000 MG in DEXTROSE 5% 50 ML IV SCH (18:40)
[2021-12-31] MEDS: PANTOprazole 40 MG in DEXTROSE 5% 100 ML IV SCH ×5 (03:10→21:32)
--- NOTE | 2021-12-31 06:03 | Electrocardiogram Report ---
Test Reason : Blood Pressure : / mmHG Vent. Rate : 099 BPM Atrial Rate : 099 BPM P-R Int : 120 ms QRS Dur : 080 ms QT Int : 344 ms P-R-T Axes : 061 -04 048 degrees QTc Int : 441 ms Poor data quality, interpretation may be adversely affected Normal sinus rhythm Normal ECG When compared with ECG of 28-MAR-2021 01:22, No significant change was found Confirmed by Chu Saldana ([id number]) on 12/31/2021 6:02:30 AM Referred By: Confirmed By:Chu Saldana
[2021-12-31] MEDS: OCTREOTIDE ACETATE 500 MCG in DEXTROSE 5% 100 ML IV SCH ×2 (07:14→16:40)
[2021-12-31] MEDS: SODIUM CHLORIDE 0.9% 1000ML 1,000 ML IV SCH ×2 (07:14→15:24)
[2021-12-31] MEDS: GABAPENTIN 600 MG TAB PO SCH ×2 (07:28→15:24)
[2021-12-31 07:54] LABS: Hematocrit (blood only) 24.4 % (37-47); Hemoglobin 7.9 g/dL (12.0-16.0); Mean Corpuscular Hemoglobin 29.4 pg (25-34); Mean Corpuscular Hgb Conc 32.4 g/dL (32-36); Mean Corpuscular Volume 90.7 fL (80-100); RDW Coefficient of Variation 16.2 % (11.5-14.5); RDW Standard Deviation 53.9 fL (36.4-46.3); Red Blood Count 2.69 M/uL (4.2-5.4); White Blood Count 2.48 K/uL (4.8-10.8)
[2021-12-31 07:55] LABS: Mean Platelet Volume 11.4 fL (7.4-10.4); Platelet Count 39 K/uL (130-400)
[2021-12-31] MEDS: LORazepam 2 MG/1 ML VIAL IV PRN (07:58)
[2021-12-31 08:24] LABS: Albumin Globulin Ratio 0.9 (0.9-2); Albumin Level 2.6 gm/dl (3.4-5.0); BUN Creatinine Ratio 17.4 (10-20); Bilirubin,Total 1.2 mg/dl (0.2-1.0); Creatinine Clr Calc Pharmacy 80.9 ml/min; Est GFR (Non-African American) 96.6 ml/min; Magnesium 1.9 mg/dl (1.7-2.4); Phosphorus 1.7 mg/dl (2.5-4.9); Potassium 3.2 mmol/L (3.5-5.1); Total Protein 5.6 gm/dl (6.0-8.3)
[2021-12-31] MEDS: UMECLIDINIUM/VILANTEROL 62.5/25MCG 7 PUFFS/INHALER INH SCH (08:31)
[2021-12-31] MEDS: THIAMINE HCL 100 MG TAB PO SCH (08:31)
[2021-12-31] MEDS: FOLIC ACID 1 MG TAB PO SCH (08:31)
[2021-12-31] MEDS ORDERED: POTASSIUM PHOS 3 MMOL/1 ML INFUSION IV STA (08:50)
--- NOTE | 2021-12-31 08:52 | Hospitalist Progress Note ---
Date of Service December 31, 2021 Assessment & Plan (1) Acute upper gastrointestinal bleeding: (2) Alcoholic cirrhosis: (3) Hx of esophageal varices: Plan: Admitted to telemetry Patient presenting from home with reports of hematemesis, coffee-ground emesis, dark tarry stools History of alcoholic cirrhosis with esophageal varices, ascites, portal hypertensive gastropathy. Had been sober for several months however started drinking again 1 month ago, last drink morning prior to admission. Ascites previously managed with spironolactone however patient self stopped a couple months ago. No ascites evident on exam now. In the ED, hemodynamically stable. Hgb 8.4, platelets 78K. INR 1.5 S/p octreotide bolus/drip and Protonix bolus/drip in ED -- continue both S/p ceftriaxone in ED -- continue GI consulted and patient underwent EGD with banding of esophageal varices yesterday (12/30) Impression: - Grade III and large (> 5 mm) esophageal varices with stigmata of recent bleeding. Banded. - Portal hypertensive gastropathy. - Normal duodenal bulb and second portion of the duodenum. Recommendation: - Return patient to hospital [facility] for ongoing care. - NPO today then clear liquids tomorrow then full liquids the day after then advance as tolerated. - Repeat upper endoscopy in 2 months for retreatment. - Continue IV PPI and Octreotide drip for 2 more days. - IV Abx. Advance diet to clear liquid today (12/31) Acute blood loss anemia Hgb overnight down to 6.9 -received 1 unit of PRBCs (12/30) current Hgb 7.9 Trend H&H, transfuse as needed Alcohol withdrawal protocol with gabapentin, ativan (4) COPD (chronic obstructive pulmonary disease): Plan: No signs of acute exacerbation, continue home inhalers (5) DVT prophylaxis: Plan: SCDs due to GI bleeding Admission and Anticipated Discharge Date Admission Date: December 29, 2021 Subjective Patient seen in follow-up of GI bleed Underwent EGD yesterday and banding of esophageal varices Patient lying in bed in no acute distress No fevers chills chest pain shortness of breath, or significant abdominal pain Review of Systems Review of Systems: All systems reviewed & are unremarkable except as noted in Subjective Physical Exam Physical Exam: Constitutional:L WD/WN, in NAD Eyes: PERRL, EOMI, conju nctivae normal, an icteric sclerae ENMT: external ear and n ose normal, oropha rynx normal Respiratory: normal respiratory effort, lungs twin ar to auscultation Cardiovascular:L Rate/Rhythm: regul ar rate and regula r rhythm Vessels: normal peripheral pulses Extremiti es: no edema Gastrointestinal ( Abdomen):L Inspection/Auscult ation: normal marlin l sounds Percussi on/Palpation: + ab domen slightly ten triny to palp., soft Musculoskeletal: extremities motor strength 5/5 Skin: no rashes, warm an d dry Neurologic: PERRL, EOMI, no fa ce palsy, no dysar thria Psychiatric: A+Ox3, euthymic af fect Results & Data Results & Data ([facility]) Vital Signs (Past 12 Hours) Vital Signs Temp Pulse Resp BP Pulse Ox 12/31/21 07:56 36.8 C 73 18 116/73 93 12/31/21 03:16 36.6 C 81 20 119/76 91 12/31/21 00:02 36.7 C 78 16 108/68 94 Laboratory Results 12/31/21 12/31/21 12/30/21 Range/Units 07:08 07:08 09:26 WBC 2.48 L (4.8-10.8) K/uL RBC 2.69 L (4.2-5.4) M/uL Hgb 7.9 L 7.8 L (12.0-16.0) g/dL Hct 24.4 L 23.4 L (37-47) % MCV 90.7 (80-100) fL MCH 29.4 (25-34) pg MCHC 32.4 (32-36) g/dL RDW Std Deviation 53.9 H (36.4-46.3) fL RDW Coeff of Radha 16.2 H (11.5-14.5) % Plt Count 39 L (130-400) K/uL MPV 11.4 H (7.4-10.4) fL Sodium 138 (136-145) mmol/L Potassium 3.2 L (3.5-5.1) mmol/L Chloride 111 H (98-107) mmol/L Carbon Dioxide 24 (21-32) mmol/L Anion Gap 3 (3-11) BUN 12 (6-23) mg/dl Creatinine 0.69 (0.6-1.2) mg/dl Est Cr Clr Drug Dosing 80.9 ml/min Est GFR ( Amer) 112.0 ml/min Est GFR (Non-Af Amer) 96.6 ml/min BUN/Creatinine Ratio 17.4 (10-20) Glucose 107 H (70-99(Fasting)) mg/dl Calcium 7.0 L (8.5-10.1) mg/dl Phosphorus 1.7 L (2.5-4.9) mg/dl Magnesium 1.9 (1.7-2.4) mg/dl Total Bilirubin 1.2 H (0.2-1.0) mg/dl AST 73 H (13-39) U/L ALT 21 (7-52) U/L Alkaline Phosphatase 59 (34-104) U/L Total Protein 5.6 L (6.0-8.3) gm/dl Albumin 2.6 L (3.4-5.0) gm/dl Globulin 3.0 (2.5-4.0) gm/dl Albumin/Globulin Ratio 0.9 (0.9-2) Medications Administered Current Inpatient Medications Acetaminophen (Acetaminophen 325 Mg Tab) 650 mg PO Q4H PRN PRN Reason: Pain or Fever Stop: 01/28/22 19:12 Folic Acid (Folic Acid 1 Mg Tab) 1 mg PO QAM [facility] Stop: 01/28/22 19:12 Last Admin: 12/31/21 08:31 Dose: 1 mg Documented by: Gabapentin (Gabapentin 600 Mg Tab) 600 mg PO Q8H [facility] Stop: 12/31/21 14:01 Last Admin: 12/31/21 07:28 Dose: 600 mg Documented by: Gabapentin (Gabapentin 600 Mg Tab) 600 mg PO Q12H [facility] Stop: 01/01/22 12:01 Gabapentin (Gabapentin 600 Mg Tab) 600 mg PO Q24H [facility] Stop: 01/02/22 12:01 Pantoprazole Sodium 40 mg/ (Dextrose) 100 mls @ 20 mls/hr IV Q5H [facility] Stop: 01/28/22 14:44 Last Admin: 12/31/21 07:47 Dose: 8 mg/hr, 20 mls/hr Documented by: Octreotide Acetate 500 mcg/ (Dextrose) 100.5 mls @ 10.05 mls/hr IV .Q10H [facility] Stop: 01/28/22 14:29 Last Admin: 12/31/21 07:14 Dose: 50.25 mcg/hr, 10.1 mls/hr Documented by: Sodium Chloride (Nss 1000ml) 1,000 mls @ 125 mls/hr IV .Q8H [facility] Stop: 01/28/22 21:59 Last Admin: 12/31/21 07:14 Dose: 125 mls/hr Documented by: Ceftriaxone Sodium 2,000 mg/ (Dextrose) 70 mls @ 100 mls/hr IV Q24H [facility]; Protocol Stop: 01/09/22 13:59 Last Infusion: 12/30/21 20:47 Dose: Infused Documented by: Potassium Chloride (K Nitin / Wtr) 10 meq in 100 mls @ 100 mls/hr IV Q1H [facility]; Protocol Stop: 12/31/21 10:59 Lorazepam (Lorazepam 2 Mg/1 Ml Vial) 1 mg IV UD PRN; Protocol PRN Reason: EtOH Withdrawl AWSS Score 6,7 Stop: 01/28/22 19:12 Last Admin: 12/31/21 07:58 Dose: 1 mg Documented by: Lorazepam (Lorazepam 2 Mg/1 Ml Vial) 2 mg IV UD PRN; Protocol PRN Reason: EtOH Withdrawl AWSS Score 8,9 Stop: 01/28/22 19:12 Lorazepam (Lorazepam 2 Mg/1 Ml Vial) 3 mg IV ONCE PRN; Protocol PRN Reason: EtOH Withdrawl AWSS Score >=10 Stop: 01/28/22 19:12 Ondansetron HCl (Ondansetron Inj 2 Mg/Ml 2 Ml Vial) 4 mg IV Q6H PRN PRN Reason: Nausea And Vomiting Stop: 01/28/22 19:12 Potassium Phosphate (Potassium Phos 3 Mmol/1 Ml Infusion) 15 mmol IV NOW STA Stop: 12/31/21 08:51 Thiamine HCl (Thiamine Hcl 100 Mg Tab) 100 mg PO QAM [facility] Stop: 01/28/22 19:12 Last Admin: 12/31/21 08:31 Dose: 100 mg Documented by: Umeclidinium/Vilanterol (Umeclidinium/Vilanterol 62.5/25mcg 7 Puffs/Inhaler) 1 puffs INH DAILY [facility] Stop: 01/29/22 08:59 Last Admin: 12/31/21 08:31 Dose: 1 puffs Documented by:
[2021-12-31] MEDS ORDERED: POTASSIUM PHOSPHATE 15 MMOL in DEXTROSE 5% 250 ML IV ONE (09:00)
--- NOTE | 2021-12-31 10:11 | Gastroenterology Progress Note ---
Date of Service December 31, 2021 Assessment & Plan (1) Melena: (2) Acute upper gastrointestinal bleeding: (3) Hx of esophageal varices: (4) Alcoholic cirrhosis: Plan: 56 y/o female w/ Hep C (tx, SVR achieved), ETOH cirrhosis, PHG, varices, ascites, admitted with hematemesis, melena. EGD yesterday w/ large varices, with recent bleeding, banded; PHG. Overnight has remained stable; no GI output, labs stable. She has some upper abd soreness (has been there since her repeating vomiting episodes), somewhat better today. Abd is soft. - Advance diet to clears today, then full liquids tomorrow, then advance as tolerated - Continue IV PPI, Octreotide for today and tomorrow - IV ABX - Repeat EGD in 2 months for retreatment - ETOH withdrawal protocol - Monitor and document GI output - Trend H&H, transfuse PRN - Encouraged to abstain from ETOH, illicit drugs, APAP no more than 2g daily - Low salt (2g) daily - She has stopped her spironolactone. Will likely need to restart this on DC given her history of ascites - Should follow-up with regular GI provider as OP Thank you for allowing us to participate in the care of this patient. Please call with any acute changes, questions or concerns. Please see addendum below with additional recommendation from my supervising physician. Admission and Anticipated Discharge Date Admission Date: December 29, 2021 Supervising Physician Co-Signing Physician Notes I saw and evaluated the patient. She had presented with signs and symptoms consistent with hemorrhage from esophageal varices. She underwent upper endoscopy with my partner yesterday and appears to be doing well today. Recommendations Continue octreotide for total of 72 hours Addition to Protonix 40 mg 1 time daily Continue antibiotic coverage during inpatient stay Patient should seek alcohol counseling May advance to a soft mechanical diet, would suggest low-sodium Subjective Patient seen and examined, chart reviewed. No acute events overnight. No melena, hematochezia, hematemesis. Pt has some ongoing upper abd soreness since her repeated vomiting episodes [facility], but otherwise denies abd pain, nausea, vomiting, fever, chills, CP, SOB. + flatus, no BM. No hematuria. Review of Systems Review of Systems: All systems reviewed & are unremarkable except as noted in HPI & below Physical Exam Constitutional: WD/WN, vitals as above Eyes: PERRL, conjunctivae normal, anicteric sclerae ENMT: external ear and nose normal, oropharynx normal Respiratory: normal respiratory effort, lungs clear to auscultation Cardiovascular: RRR, no murmur, no edema Gastrointestinal (Abdomen): normal bowel sounds, soft, nontender, no hepatosplenomegaly Skin: no rashes, warm and dry Psychiatric: A+Ox3, euthymic affect Results & Data ([facility]) Vital Signs (Past 12 Hours) Vital Signs Temp Pulse Resp BP Pulse Ox 12/31/21 07:56 36.8 C 73 18 116/73 93 12/31/21 03:16 36.6 C 81 20 119/76 91 12/31/21 00:02 36.7 C 78 16 108/68 94 Laboratory Results 12/31/21 12/31/21 Range/Units 07:08 07:08 WBC 2.48 L (4.8-10.8) K/uL RBC 2.69 L (4.2-5.4) M/uL Hgb 7.9 L (12.0-16.0) g/dL Hct 24.4 L (37-47) % MCV 90.7 (80-100) fL MCH 29.4 (25-34) pg MCHC 32.4 (32-36) g/dL RDW Std Deviation 53.9 H (36.4-46.3) fL RDW Coeff of Radha 16.2 H (11.5-14.5) % Plt Count 39 L (130-400) K/uL MPV 11.4 H (7.4-10.4) fL Sodium 138 (136-145) mmol/L Potassium 3.2 L (3.5-5.1) mmol/L Chloride 111 H (98-107) mmol/L Carbon Dioxide 24 (21-32) mmol/L Anion Gap 3 (3-11) BUN 12 (6-23) mg/dl Creatinine 0.69 (0.6-1.2) mg/dl Est Cr Clr Drug Dosing 80.9 ml/min Est GFR ( Amer) 112.0 ml/min Est GFR (Non-Af Amer) 96.6 ml/min BUN/Creatinine Ratio 17.4 (10-20) Glucose 107 H (70-99(Fasting)) mg/dl Calcium 7.0 L (8.5-10.1) mg/dl Phosphorus 1.7 L (2.5-4.9) mg/dl Magnesium 1.9 (1.7-2.4) mg/dl Total Bilirubin 1.2 H (0.2-1.0) mg/dl AST 73 H (13-39) U/L ALT 21 (7-52) U/L Alkaline Phosphatase 59 (34-104) U/L Total Protein 5.6 L (6.0-8.3) gm/dl Albumin 2.6 L (3.4-5.0) gm/dl Globulin 3.0 (2.5-4.0) gm/dl Albumin/Globulin Ratio 0.9 (0.9-2) Diagnostic Findings EGD 12/30/21: - Grade III and large (> 5 mm) esophageal varices with stigmata of recent bleeding. Banded. - Portal hypertensive gastropathy. - Normal duodenal bulb and second portion of the duodenum.
[2021-12-31] MEDS: POTASSIUM CHLORIDE / WTR 10 MEQ/100 ML PLCT IV SCH ×2 (10:25→11:37)
[2021-12-31] MEDS: cefTRIAXone SODIUM 2,000 MG in DEXTROSE 5% 50 ML IV SCH (16:23)
[2021-12-31] MEDS: ACETAMINOPHEN 325 MG TAB PO PRN (17:01)
[2021-12-31] MEDS ORDERED: LORazepam 0.5 MG TAB PO STA (20:00)
[2022-01-01] MEDS: GABAPENTIN 600 MG TAB PO SCH ×2 (00:14→12:04)
[2022-01-01] MEDS: OCTREOTIDE ACETATE 500 MCG in DEXTROSE 5% 100 ML IV SCH ×3 (01:40→21:06)
[2022-01-01] MEDS: PANTOprazole 40 MG in DEXTROSE 5% 100 ML IV SCH ×5 (02:12→22:46)
[2022-01-01 07:48] LABS: Hematocrit (blood only) 25.4 % (37-47); Hemoglobin 8.2 g/dL (12.0-16.0); Mean Corpuscular Hemoglobin 29.3 pg (25-34); Mean Corpuscular Hgb Conc 32.3 g/dL (32-36); Mean Corpuscular Volume 90.7 fL (80-100); RDW Coefficient of Variation 16.1 % (11.5-14.5); RDW Standard Deviation 53.5 fL (36.4-46.3); White Blood Count 2.81 K/uL (4.8-10.8)
[2022-01-01 08:00] LABS: Mean Platelet Volume 11.2 fL (7.4-10.4); Platelet Count 44 K/uL (130-400)
[2022-01-01 08:26] LABS: Albumin Globulin Ratio 0.9 (0.9-2); Albumin Level 2.7 gm/dl (3.4-5.0); BUN Creatinine Ratio 10.3 (10-20); Bilirubin,Total 1.3 mg/dl (0.2-1.0); Calcium 7.2 mg/dl (8.5-10.1); Creatinine Clr Calc Pharmacy 82.1 ml/min; Est GFR (African American) 112.5 ml/min; Est GFR (Non-African American) 97.1 ml/min; Magnesium 1.9 mg/dl (1.7-2.4); Potassium 3.2 mmol/L (3.5-5.1); Total Protein 5.7 gm/dl (6.0-8.3)
--- NOTE | 2022-01-01 08:50 | Gastroenterology Progress Note ---
Date of Service January 01, 2022 Assessment & Plan (1) Melena: (2) Acute upper gastrointestinal bleeding: (3) Hx of esophageal varices: (4) Alcoholic cirrhosis: Plan: 56 y/o female w/ Hep C (tx, SVR achieved), ETOH cirrhosis, PHG, varices, ascites, admitted with hematemesis, melena. EGD 12/30 w/ large varices, with recent bleeding, banded; PHG. Overnight has remained stable; no GI output, labs stable. Abd is soft. - Full liquids today then advance as tolerated - Continue IV PPI, Octreotide for total of 72 hours - IV ABX - Repeat EGD in 2 months for retreatment - ETOH withdrawal protocol - Monitor and document GI output - Trend H&H, transfuse PRN - Encouraged to abstain from ETOH, illicit drugs, APAP no more than 2g daily. Consider alcohol counseling/rehab - Low salt (2g) daily - She has stopped her spironolactone. Will likely need to restart this on DC given her history of ascites - Should follow-up with regular GI provider as OP - GI will sign off, please call with questions Thank you for allowing us to participate in the care of this patient. Please call with any acute changes, questions or concerns. Please see addendum below with additional recommendation from my supervising physician. Admission and Anticipated Discharge Date Admission Date: December 29, 2021 Supervising Physician Co-Signing Physician Notes I have personally seen and examined the patient with Jocelin Zamora PA-C. Her note reflects my exam and findings. I agree with her impression and plan. No signs of bleeding. H/H stable. Titrate Octreotide to off overnight. Soft diet for 5-7 days. If H/H stable tomorrow than can D/C from GI perspective. Merrick Santillan M.D. Subjective Patient seen and examined, chart reviewed. No acute events overnight. Tolerated diet. No melena, hematochezia, hematemesis overnight. No CP, SOB, fever, chills. Review of Systems Review of Systems: All systems reviewed & are unremarkable except as noted in HPI & below Physical Exam Constitutional: WD/WN, vitals as above Eyes: PERRL, conjunctivae normal, anicteric sclerae ENMT: external ear and nose normal, oropharynx normal Respiratory: normal respiratory effort, lungs clear to auscultation Cardiovascular: RRR, no murmur, no edema Gastrointestinal (Abdomen): normal bowel sounds, soft, nontender, no hepatosplenomegaly Skin: no rashes, warm and dry Psychiatric: A+Ox3, euthymic affect Results & Data ([facility]) Vital Signs (Past 12 Hours) Vital Signs Temp Pulse Pulse Resp BP BP Pulse Ox 01/01/22 08:15 36.7 C 74 16 101/57 L 97 01/01/22 03:13 36.8 C 81 18 95/58 L 94 12/31/21 23:00 77 Laboratory Results 01/01/22 01/01/22 Range/Units 07:12 07:12 WBC 2.81 L (4.8-10.8) K/uL RBC 2.80 L (4.2-5.4) M/uL Hgb 8.2 L (12.0-16.0) g/dL Hct 25.4 L (37-47) % MCV 90.7 (80-100) fL MCH 29.3 (25-34) pg MCHC 32.3 (32-36) g/dL RDW Std Deviation 53.5 H (36.4-46.3) fL RDW Coeff of Radha 16.1 H (11.5-14.5) % Plt Count 44 L (130-400) K/uL MPV 11.2 H (7.4-10.4) fL Sodium 138 (136-145) mmol/L Potassium 3.2 L (3.5-5.1) mmol/L Chloride 110 H (98-107) mmol/L Carbon Dioxide 25 (21-32) mmol/L Anion Gap 3 (3-11) BUN 7 (6-23) mg/dl Creatinine 0.68 (0.6-1.2) mg/dl Est Cr Clr Drug Dosing 82.1 ml/min Est GFR ( Amer) 112.5 ml/min Est GFR (Non-Af Amer) 97.1 ml/min BUN/Creatinine Ratio 10.3 (10-20) Glucose 123 H (70-99(Fasting)) mg/dl Calcium 7.2 L (8.5-10.1) mg/dl Phosphorus 2.0 L (2.5-4.9) mg/dl Magnesium 1.9 (1.7-2.4) mg/dl Total Bilirubin 1.3 H (0.2-1.0) mg/dl AST 66 H (13-39) U/L ALT 22 (7-52) U/L Alkaline Phosphatase 60 (34-104) U/L Total Protein 5.7 L (6.0-8.3) gm/dl Albumin 2.7 L (3.4-5.0) gm/dl Globulin 3.0 (2.5-4.0) gm/dl Albumin/Globulin Ratio 0.9 (0.9-2)
[2022-01-01] MEDS: THIAMINE HCL 100 MG TAB PO SCH (08:51)
[2022-01-01] MEDS: UMECLIDINIUM/VILANTEROL 62.5/25MCG 7 PUFFS/INHALER INH SCH (08:51)
[2022-01-01] MEDS: FOLIC ACID 1 MG TAB PO SCH (08:51)
--- NOTE | 2022-01-01 13:00 | Hospitalist Progress Note ---
Date of Service January 01, 2022 Assessment & Plan (1) Acute upper gastrointestinal bleeding: (2) Alcoholic cirrhosis: (3) Hx of esophageal varices: Plan: Admitted to telemetry Patient presenting from home with reports of hematemesis, coffee-ground emesis, dark tarry stools History of alcoholic cirrhosis with esophageal varices, ascites, portal hypertensive gastropathy. Had been sober for several months however started drinking again 1 month ago, last drink morning prior to admission. Ascites previously managed with spironolactone however patient self stopped a couple months ago. No ascites evident on exam now. In the ED, hemodynamically stable. Hgb 8.4, platelets 78K. INR 1.5 S/p octreotide bolus/drip and Protonix bolus/drip in ED -- continue both S/p ceftriaxone in ED -- continue GI consulted and patient underwent EGD with banding of esophageal varices yesterday (12/30) Impression: - Grade III and large (> 5 mm) esophageal varices with stigmata of recent bleeding. Banded. - Portal hypertensive gastropathy. - Normal duodenal bulb and second portion of the duodenum. Recommendation: - [facility] for [facility]. - NPO today then clear liquids tomorrow then full liquids the day after then advance as tolerated. - Repeat upper endoscopy in 2 months for retreatment. - Continue IV PPI and Octreotide drip for 2 more days. - IV Abx. Patient is tolerating clear liquid diet Advance diet to full liquid today (01/01) Acute blood loss anemia Hgb overnight down to 6.9 -received 1 unit of PRBCs (12/30) current Hgb 8.2 Trend H&H, transfuse as needed Alcohol withdrawal protocol with gabapentin, ativan (4) COPD (chronic obstructive pulmonary disease): Plan: No signs of acute exacerbation, continue home inhalers (5) DVT prophylaxis: Plan: SCDs due to GI bleeding Admission and Anticipated Discharge Date Admission Date: December 29, 2021 Subjective Patient seen in follow-up of GI bleed Underwent EGD w/ banding of esophageal varices Patient lying in bed in no acute distress No fevers chills chest pain shortness of breath, or significant abdominal pain Hemoglobin stable No emesis or BMs, patient is passing gas Review of Systems Review of Systems: All systems reviewed & are unremarkable except as noted in Subjective Physical Exam Physical Exam: Constitutional:L WD/WN, in NAD Eyes: PERRL, EOMI, conju nctivae normal, an icteric sclerae ENMT: external ear and n ose normal, oropha rynx normal Respiratory: normal respiratory effort, lungs twin ar to auscultation Cardiovascular:L Rate/Rhythm: regul ar rate and regula r rhythm Vessels: normal peripheral pulses Extremiti es: no edema Gastrointestinal ( Abdomen): Inspection/Auscult ation: normal marlin l sounds Percussi on/Palpation: abdo men non- tender to palp., soft Musculoskeletal: extremities motor strength 5/5 Skin: no rashes, warm an d dry Neurologic: PERRL, EOMI, no fa ce palsy, no dysar thria Psychiatric: A+Ox3, euthymic af fect Results & Data Results & Data ([facility]) Vital Signs (Past 12 Hours) Vital Signs Temp Pulse Resp BP BP Pulse Ox 01/01/22 12:00 36.6 C 80 18 98/66 L 97 01/01/22 08:15 36.7 C 74 16 101/57 L 97 01/01/22 03:13 36.8 C 81 18 95/58 L 94 Laboratory Results 01/01/22 01/01/22 Range/Units 07:12 07:12 WBC 2.81 L (4.8-10.8) K/uL RBC 2.80 L (4.2-5.4) M/uL Hgb 8.2 L (12.0-16.0) g/dL Hct 25.4 L (37-47) % MCV 90.7 (80-100) fL MCH 29.3 (25-34) pg MCHC 32.3 (32-36) g/dL RDW Std Deviation 53.5 H (36.4-46.3) fL RDW Coeff of Radha 16.1 H (11.5-14.5) % Plt Count 44 L (130-400) K/uL MPV 11.2 H (7.4-10.4) fL Sodium 138 (136-145) mmol/L Potassium 3.2 L (3.5-5.1) mmol/L Chloride 110 H (98-107) mmol/L Carbon Dioxide 25 (21-32) mmol/L Anion Gap 3 (3-11) BUN 7 (6-23) mg/dl Creatinine 0.68 (0.6-1.2) mg/dl Est Cr Clr Drug Dosing 82.1 ml/min Est GFR ( Amer) 112.5 ml/min Est GFR (Non-Af Amer) 97.1 ml/min BUN/Creatinine Ratio 10.3 (10-20) Glucose 123 H (70-99(Fasting)) mg/dl Calcium 7.2 L (8.5-10.1) mg/dl Phosphorus 2.0 L (2.5-4.9) mg/dl Magnesium 1.9 (1.7-2.4) mg/dl Total Bilirubin 1.3 H (0.2-1.0) mg/dl AST 66 H (13-39) U/L ALT 22 (7-52) U/L Alkaline Phosphatase 60 (34-104) U/L Total Protein 5.7 L (6.0-8.3) gm/dl Albumin 2.7 L (3.4-5.0) gm/dl Globulin 3.0 (2.5-4.0) gm/dl Albumin/Globulin Ratio 0.9 (0.9-2) Medications Administered Current Inpatient Medications Acetaminophen (Acetaminophen 325 Mg Tab) 650 mg PO Q4H PRN PRN Reason: Pain or Fever Stop: 01/28/22 19:12 Last Admin: 12/31/21 17:01 Dose: 650 mg Documented by: Folic Acid (Folic Acid 1 Mg Tab) 1 mg PO QAM [facility] Stop: 01/28/22 19:12 Last Admin: 01/01/22 08:51 Dose: 1 mg Documented by: Gabapentin (Gabapentin 600 Mg Tab) 600 mg PO Q24H [facility] Stop: 01/02/22 12:01 Pantoprazole Sodium 40 mg/ (Dextrose) 100 mls @ 20 mls/hr IV Q5H [facility] Stop: 01/28/22 14:44 Last Admin: 01/01/22 12:48 Dose: 8 mg/hr, 20 mls/hr Documented by: Octreotide Acetate 500 mcg/ (Dextrose) 100.5 mls @ 10.05 mls/hr IV .Q10H [facility] Stop: 01/28/22 14:29 Last Admin: 01/01/22 12:04 Dose: 50.25 mcg/hr, 10.1 mls/hr Documented by: Ceftriaxone Sodium 2,000 mg/ (Dextrose) 70 mls @ 100 mls/hr IV Q24H [facility]; Protocol Stop: 01/09/22 13:59 Last Infusion: 12/31/21 16:55 Dose: Infused Documented by: Potassium Chloride (K Nitin / Wtr) 10 meq in 100 mls @ 100 mls/hr IV Q1H [facility]; Protocol Stop: 01/01/22 14:59 Lorazepam (Lorazepam 2 Mg/1 Ml Vial) 1 mg IV UD PRN; Protocol PRN Reason: EtOH Withdrawl AWSS Score 6,7 Stop: 01/28/22 19:12 Last Admin: 12/31/21 07:58 Dose: 1 mg Documented by: Lorazepam (Lorazepam 2 Mg/1 Ml Vial) 2 mg IV UD PRN; Protocol PRN Reason: EtOH Withdrawl AWSS Score 8,9 Stop: 01/28/22 19:12 Lorazepam (Lorazepam 2 Mg/1 Ml Vial) 3 mg IV ONCE PRN; Protocol PRN Reason: EtOH Withdrawl AWSS Score >=10 Stop: 01/28/22 19:12 Ondansetron HCl (Ondansetron Inj 2 Mg/Ml 2 Ml Vial) 4 mg IV Q6H PRN PRN Reason: Nausea And Vomiting Stop: 01/28/22 19:12 Thiamine HCl (Thiamine Hcl 100 Mg Tab) 100 mg PO QAM [facility] Stop: 01/28/22 19:12 Last Admin: 01/01/22 08:51 Dose: 100 mg Documented by: Umeclidinium/Vilanterol (Umeclidinium/Vilanterol 62.5/25mcg 7 Puffs/Inhaler) 1 puffs INH DAILY [facility] Stop: 01/29/22 08:59 Last Admin: 01/01/22 08:51 Dose: 1 puffs Documented by:
[2022-01-01] MEDS: POTASSIUM CHLORIDE / WTR 10 MEQ/100 ML PLCT IV SCH ×2 (14:39→15:51)
[2022-01-01] MEDS: cefTRIAXone SODIUM 2,000 MG in DEXTROSE 5% 50 ML IV SCH (14:40)
[2022-01-01] MEDS ORDERED: POTASSIUM PHOS 3 MMOL/1 ML INFUSION IV STA (15:59)
[2022-01-01] MEDS ORDERED: POTASSIUM PHOSPHATE 15 MMOL in SODIUM CHLORIDE 0.9% 250 ML IV ONE (16:15)
[2022-01-01] MEDS ORDERED: COUGH DROP (SUGAR FREE) LOZ 24 LOZ/1 BOX BUCCAL ONE (18:07)
[2022-01-01] MEDS: ACETAMINOPHEN 325 MG TAB PO PRN (18:08)
[2022-01-01] MEDS ORDERED: MELATONIN 3 MG TAB PO PRN (21:19)
[2022-01-01] MEDS ORDERED: MoRPHine SULFATE 2 MG/ML CARP IV STA (21:22)
[2022-01-01] MEDS ORDERED: MoRPHine SULFATE 2 MG/ML CARP ONE (21:31)
[2022-01-02] MEDS: PANTOprazole 40 MG in DEXTROSE 5% 100 ML IV SCH ×2 (02:48→07:05)
[2022-01-02 06:17] LABS: Calcium 7.4 mg/dl (8.5-10.1); Creatinine Clr Calc Pharmacy 78.7 ml/min; Est GFR (African American) 109.6 ml/min; Est GFR (Non-African American) 94.6 ml/min; Magnesium 1.9 mg/dl (1.7-2.4); Phosphorus 2.5 mg/dl (2.5-4.9); Potassium 3.5 mmol/L (3.5-5.1)
[2022-01-02] MEDS: OCTREOTIDE ACETATE 500 MCG in DEXTROSE 5% 100 ML IV SCH (07:05)
--- NOTE | 2022-01-02 07:48 | Hospitalist Progress Note ---
Date of Service January 02, 2022 Assessment & Plan (1) Acute upper gastrointestinal bleeding: (2) Alcoholic cirrhosis: (3) Hx of esophageal varices: Plan: Admitted to telemetry Patient presenting from home with reports of hematemesis, coffee-ground emesis, dark tarry stools History of alcoholic cirrhosis with esophageal varices, ascites, portal hypertensive gastropathy. Had been sober for several months however started drinking again 1 month ago, last drink morning prior to admission. Ascites previously managed with spironolactone however patient self stopped a couple months ago. No ascites evident on exam now. In the ED, hemodynamically stable. Hgb 8.4, platelets 78K. INR 1.5 S/p octreotide bolus/drip and Protonix bolus/drip in ED -- continued both during hosp. stay S/p ceftriaxone in ED -- continued during hosp. stay GI consulted and patient underwent EGD with banding of esophageal varices (12/30) Impression: - Grade III and large (> 5 mm) esophageal varices with stigmata of recent bleeding. Banded. - Portal hypertensive gastropathy. - Normal duodenal bulb and second portion of the duodenum. Recommendation: - [facility] patient to [facility] for [facility] care. - NPO today then clear liquids tomorrow then full liquids the day after then advance as tolerated. - Repeat upper endoscopy in 2 months for retreatment. - Continue IV PPI and Octreotide drip for 2 more days. - IV Abx. Patient is tolerating full liquid diet Advance diet to soft today (01/02) -she should be on soft diet for 5 to 7 days Acute blood loss anemia Hgb overnight down to 6.9 -received 1 unit of PRBCs (12/30) current Hgb 8.0 Trend H&H, transfuse as needed Alcohol withdrawal protocol with gabapentin, ativan (4) COPD (chronic obstructive pulmonary disease): Plan: No signs of acute exacerbation, continue home inhalers (5) DVT prophylaxis: Plan: SCDs due to GI bleeding Admission and Anticipated Discharge Date Admission Date: December 29, 2021 Subjective Patient seen in follow-up of GI bleed Underwent EGD w/ banding of esophageal varices Patient lying in bed in no acute distress No fevers chills chest pain shortness of breath, or significant abdominal pain Hemoglobin stable No emesis or BMs, patient is passing gas Review of Systems Review of Systems: All systems reviewed & are unremarkable except as noted in Subjective Physical Exam Physical Exam: Constitutional:L WD/WN, in NAD Eyes: PERRL, EOMI, conju nctivae normal, an icteric sclerae ENMT: external ear and n ose normal, oropha rynx normal Respiratory: normal respiratory effort, lungs twin ar to auscultation Cardiovascular:L Rate/Rhythm: regul ar rate and regula r rhythm Vessels: normal peripheral pulses Extremiti es: no edema Gastrointestinal ( Abdomen): Inspection/Auscult ation: normal marlin l sounds Percussi on/Palpation: abdo men non- tender to palp., soft Musculoskeletal: extremities motor strength 5/5 Skin: no rashes, warm an d dry Neurologic: PERRL, EOMI, no fa ce palsy, no dysar thria Psychiatric: A+Ox3, euthymic af fect Results & Data Results & Data ([facility]) Vital Signs (Past 12 Hours) Vital Signs Temp Pulse Pulse Resp BP BP Pulse Ox 01/02/22 07:17 82 01/02/22 03:36 36.5 C 78 18 109/50 L 90 01/01/22 23:03 36.6 C 80 18 95/53 L 92 01/01/22 23:00 82 01/01/22 19:48 36.9 C 88 18 98/67 L 90 Laboratory Results 01/02/22 01/02/22 01/01/22 Range/Units 05:20 05:20 07:12 WBC (4.8-10.8) K/uL RBC (4.2-5.4) M/uL Hgb 8.0 L (12.0-16.0) g/dL Hct 25.0 L (37-47) % MCV (80-100) fL MCH (25-34) pg MCHC (32-36) g/dL RDW Std Deviation (36.4-46.3) fL RDW Coeff of Radha (11.5-14.5) % Plt Count (130-400) K/uL MPV (7.4-10.4) fL Sodium 138 138 (136-145) mmol/L Potassium 3.5 3.2 L (3.5-5.1) mmol/L Chloride 109 H 110 H (98-107) mmol/L Carbon Dioxide 24 25 (21-32) mmol/L Anion Gap 5 3 (3-11) BUN 5 L 7 (6-23) mg/dl Creatinine 0.71 0.68 (0.6-1.2) mg/dl Est Cr Clr Drug Dosing 78.7 82.1 ml/min Est GFR ( Amer) 109.6 112.5 ml/min Est GFR (Non-Af Amer) 94.6 97.1 ml/min BUN/Creatinine Ratio 7.0 L 10.3 (10-20) Glucose 129 H 123 H (70-99(Fasting)) mg/dl Calcium 7.4 L 7.2 L (8.5-10.1) mg/dl Phosphorus 2.5 2.0 L (2.5-4.9) mg/dl Magnesium 1.9 1.9 (1.7-2.4) mg/dl Total Bilirubin 1.3 H (0.2-1.0) mg/dl AST 66 H (13-39) U/L ALT 22 (7-52) U/L Alkaline Phosphatase 60 (34-104) U/L Total Protein 5.7 L (6.0-8.3) gm/dl Albumin 2.7 L (3.4-5.0) gm/dl Globulin 3.0 (2.5-4.0) gm/dl Albumin/Globulin Ratio 0.9 (0.9-2) 01/01/22 Range/Units 07:12 WBC 2.81 L (4.8-10.8) K/uL RBC 2.80 L (4.2-5.4) M/uL Hgb 8.2 L (12.0-16.0) g/dL Hct 25.4 L (37-47) % MCV 90.7 (80-100) fL MCH 29.3 (25-34) pg MCHC 32.3 (32-36) g/dL RDW Std Deviation 53.5 H (36.4-46.3) fL RDW Coeff of Radha 16.1 H (11.5-14.5) % Plt Count 44 L (130-400) K/uL MPV 11.2 H (7.4-10.4) fL Sodium (136-145) mmol/L Potassium (3.5-5.1) mmol/L Chloride (98-107) mmol/L Carbon Dioxide (21-32) mmol/L Anion Gap (3-11) BUN (6-23) mg/dl Creatinine (0.6-1.2) mg/dl Est Cr Clr Drug Dosing ml/min Est GFR ( Amer) ml/min Est GFR (Non-Af Amer) ml/min BUN/Creatinine Ratio (10-20) Glucose (70-99(Fasting)) mg/dl Calcium (8.5-10.1) mg/dl Phosphorus (2.5-4.9) mg/dl Magnesium (1.7-2.4) mg/dl Total Bilirubin (0.2-1.0) mg/dl AST (13-39) U/L ALT (7-52) U/L Alkaline Phosphatase (34-104) U/L Total Protein (6.0-8.3) gm/dl Albumin (3.4-5.0) gm/dl Globulin (2.5-4.0) gm/dl Albumin/Globulin Ratio (0.9-2) Medications Administered Current Inpatient Medications Acetaminophen (Acetaminophen 325 Mg Tab) 650 mg PO Q4H PRN PRN Reason: Pain or Fever Stop: 01/28/22 19:12 Last Admin: 01/01/22 18:08 Dose: 650 mg Documented by: Folic Acid (Folic Acid 1 Mg Tab) 1 mg PO QAM [facility] Stop: 01/28/22 19:12 Last Admin: 01/01/22 08:51 Dose: 1 mg Documented by: Gabapentin (Gabapentin 600 Mg Tab) 600 mg PO Q24H [facility] Stop: 01/02/22 12:01 Pantoprazole Sodium 40 mg/ (Dextrose) 100 mls @ 20 mls/hr IV Q5H [facility] Stop: 01/28/22 14:44 Last Admin: 01/02/22 07:05 Dose: 8 mg/hr, 20 mls/hr Documented by: Octreotide Acetate 500 mcg/ (Dextrose) 100.5 mls @ 10.05 mls/hr IV .Q10H [facility] Stop: 01/28/22 14:29 Last Admin: 01/02/22 07:05 Dose: 50.25 mcg/hr, 10.1 mls/hr Documented by: Ceftriaxone Sodium 2,000 mg/ (Dextrose) 70 mls @ 100 mls/hr IV Q24H [facility]; Protocol Stop: 01/09/22 13:59 Last Infusion: 01/01/22 15:25 Dose: Infused Documented by: Lorazepam (Lorazepam 2 Mg/1 Ml Vial) 1 mg IV UD PRN; Protocol PRN Reason: EtOH Withdrawl AWSS Score 6,7 Stop: 01/28/22 19:12 Last Admin: 12/31/21 07:58 Dose: 1 mg Documented by: Lorazepam (Lorazepam 2 Mg/1 Ml Vial) 2 mg IV UD PRN; Protocol PRN Reason: EtOH Withdrawl AWSS Score 8,9 Stop: 01/28/22 19:12 Lorazepam (Lorazepam 2 Mg/1 Ml Vial) 3 mg IV ONCE PRN; Protocol PRN Reason: EtOH Withdrawl AWSS Score >=10 Stop: 01/28/22 19:12 Melatonin (Melatonin 3 Mg Tab) 3 mg PO HS PRN PRN Reason: Sleep Stop: 01/31/22 21:18 Ondansetron HCl (Ondansetron Inj 2 Mg/Ml 2 Ml Vial) 4 mg IV Q6H PRN PRN Reason: Nausea And Vomiting Stop: 01/28/22 19:12 Last Admin: 01/02/22 03:45 Dose: 4 mg Documented by: Thiamine HCl (Thiamine Hcl 100 Mg Tab) 100 mg PO QAM [facility] Stop: 01/28/22 19:12 Last Admin: 01/01/22 08:51 Dose: 100 mg Documented by: Umeclidinium/Vilanterol (Umeclidinium/Vilanterol 62.5/25mcg 7 Puffs/Inhaler) 1 puffs INH DAILY [facility] Stop: 01/29/22 08:59 Last Admin: 01/01/22 08:51 Dose: 1 puffs Documented by:
[2022-01-02] MEDS: FOLIC ACID 1 MG TAB PO SCH (08:11)
[2022-01-02] MEDS: UMECLIDINIUM/VILANTEROL 62.5/25MCG 7 PUFFS/INHALER INH SCH (08:11)
[2022-01-02] MEDS: THIAMINE HCL 100 MG TAB PO SCH (08:11)
--- NOTE | 2022-01-02 09:21 | Discharge Summary ---
Date of Service January 02, 2022 Admission HPI Per Admitting Provider 56-year-old female with PMH COPD, alcoholic cirrhosis with portal hypertensive gastropathy, esophageal varices, ascites, hepatitis C s/p treatment, depression, and other problems listed below who presents to the ED for evaluation of vomiting. Patient reports a longstanding history of alcohol abuse and states she had several months of sobriety until a month ago when she began drinking again. Patient reports initially only having an occasional beer however slowly increased to drinking a half pint of bourbon per day, last drink being yesterday morning. Patient reports she developed vomiting last evening. Reports she has had several episodes of hematemesis and coffee-ground emesis. Reports associated black tarry stools and epigastric pain. No chest pain or shortness of breath. Denies lightheadedness, dizziness, diaphoresis, syncopal events. Reports being unsteady on her feet which she attributes to alcohol use. No fevers or chills. Denies urinary symptoms. In the ED, patient is hemodynamically stable. Labs show Hgb 8.4, platelets 78K. Patient was given IV ceftriaxone, IV famotidine, IV Dilaudid, IV octreotide bolus and drip, IV Protonix bolus and drip, IVF. Admission Exam Per Admitting Provider Constitutional: WD/WN, vitals as above Eyes: PERRL, conjunctivae normal, anicteric sclerae ENMT: external ear and nose normal, oropharynx normal Respiratory: normal respiratory effort, lungs clear to auscultation Cardiovascular: Rate/Rhythm: regular rate and regular rhythm Vessels: normal peripheral pulses Extremities: no edema Gastrointestinal (Abdomen): Inspection/Auscultation: normal bowel sounds Percussion/Palpation: + abdomen tender (Epigastric) and abdomen soft; no hepatosplenomegaly Musculoskeletal: no cyanosis or clubbing, extremities motor strength 5/5 Skin: no rashes, warm and dry Neurologic: PERRL, EOMI, accommodation nl, no face palsy, no dysarthria Psychiatric: A+Ox3, euthymic affect Principal Diagnosis Anemia, GI bleed Discharge Exam Constitutional: WD/WN, in NAD Eyes: PERRL, EOMI, conjunctivae normal, anicteric sclerae ENMT: external ear and nose normal, oropharynx normal Respiratory: normal respiratory effort, lungs clear to auscultation Cardiovascular: Rate/Rhythm: regular rate and regular rhythm Vessels: normal peripheral pulses Extremities: no edema Gastrointestinal (Abdomen): Inspection/Auscultation: normal bowel sounds Percussion/Palpation: abdomen non- tender to palp., soft Musculoskeletal: extremities motor strength 5/5 Skin: no rashes, warm and dry Neurologic: PERRL, EOMI, no face palsy, no dysarthria Psychiatric: A+Ox3, euthymic affect Discharge Data Allergies Allergy/AdvReac Type Severity Reaction Status Date / Time codeine AdvReac Severe upset Verified 03/28/21 01:00 stomach Consultations 12/29/21 16:39 ED Decision to Admit Stat 12/29/21 19:13 Consult Gastroenterology Routine Procedures Performed Operation Date: 12/30/21 16:30 Actual Procedures p EGD Banding of Varices - Monique Kowalski MD Hospital Course (1) Acute upper gastrointestinal bleeding: (2) Alcoholic cirrhosis: (3) Hx of esophageal varices: Admitted to telemetry Patient presenting from home with reports of hematemesis, coffee-ground emesis, dark tarry stools History of alcoholic cirrhosis with esophageal varices, ascites, portal hypertensive gastropathy. Had been sober for several months however started drinking again 1 month ago, last drink morning prior to admission. Ascites previously managed with spironolactone however patient self stopped a couple months ago. No ascites evident on exam now. In the ED, hemodynamically stable. Hgb 8.4, platelets 78K. INR 1.5 S/p octreotide bolus/drip and Protonix bolus/drip in ED -- continued both during hosp. stay S/p ceftriaxone in ED -- continued during hosp. stay GI consulted and patient underwent EGD with banding of esophageal varices (12/30) Impression: - Grade III and large (> 5 mm) esophageal varices with stigmata of recent bleeding. Banded. - Portal hypertensive gastropathy. - Normal duodenal bulb and second portion of the duodenum. Recommendation: - [facility] patient [facility] for ongoing care. - NPO today then clear liquids tomorrow then full liquids the day after then advance as tolerated. - Repeat upper endoscopy in 2 months for retreatment. - Continue IV PPI and Octreotide drip for 2 more days. - IV Abx. Patient is tolerating full liquid diet Advance diet to soft today (01/02) -she should be on soft diet for 5 to 7 days Acute blood loss anemia Hgb overnight down to 6.9 -received 1 unit of PRBCs (12/30) current Hgb 8.0 Trend H&H, transfuse as needed Alcohol withdrawal protocol with gabapentin, ativan (4) COPD (chronic obstructive pulmonary disease): No signs of acute exacerbation, continue home inhalers (5) DVT prophylaxis: SCDs due to GI bleeding Total Time Total Time Spent Total Time Spent (In Minutes): 40 Discharge Plan Discharge Items Patient Disposition: Home - Self-Care Reason For Visit: GI BLEED Discharge Diagnosis: Anemia, GI bleed Activity: Per Instructions section Non-emergency contact: Primary Care Provider and Business Executive Call non-emergency contact if: you have any medication questions and your symptoms worsen Follow-up/Referrals: Sumi Dailey, [Primary Care Provider] - (Date & Time 01/06/2022 11:00 AM Provider Cal Fraire MD [facility] ) Diet: Low Sodium (2gm) Diet Texture: Mechanical soft (ground) Addtl Attending Provider Instructions: Follow-up with your primary care doctor and 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 Appointment with your primary care doctor was scheduled for you for January 06. You need to follow-up with gastroenterology, and have endoscopy done again in 2 months for retreatment of esophageal varices. You will be contacted about the appointment. Stay on soft food diet for next 5 days. It is recommended that you do not exceed 2 g of sodium a day. It is crucial that you completely abstain from alcohol. Pending Studies at Discharge: No Stand-Alone Forms: My [facility] [employer], Smoking Cessation Medications and DC Order Prescriptions: Continued albuterol sulfate 90 mcg/actuation Hfa Aerosol Inhaler 2 puff INHALATION Q6H PRN (Reason: Shortness Of Breath Or Wheezing) RF: 0 hydroxyzine HCl 10 mg tablet 10 mg PO Q12H PRN (Reason: anxiety) Qty: 30 RF: 0 omeprazole 40 mg capsule,delayed release(DR/EC) 40 mg PO BID RF: 0 cyclobenzaprine 5 mg tablet 5 mg PO DAILY PRN (Reason: MUSCLE SPASMS) RF: 0 Anoro Ellipta 62.5-25 mcg/actuation blister with device 1 inh INHALATION DAILY RF: 0 potassium chloride 10 mEq capsule, extended release 10 meq PO BID RF: 0 multivitamin Tablet 1 tab PO DAILY RF: 0 thiamine HCl (vitamin B1) 100 mg Tablet 100 mg PO DAILY RF: 0 spironolactone 25 mg tablet 25 mg PO DAILY RF: 0 folic acid 1 mg Tablet 1 mg PO DAILY RF: 0 Discharge Orders: Discharge Order (Routine); Ordered 01/02/22 Ordered By: Delta Wiley Admission Data Admit Date/Time: 12/29/21 16:43 Attending Provider: Delta Wiley Admit Provider: Norman Melvin Primary Care Provider: Sumi Dailey Other Providers: Norman Melvin ; Monique Kowalski Other Interventions: Discharge Summary Assessment (RN) Last Done: 12/30/21 14:30
[2022-01-02] MEDS ORDERED: GABAPENTIN 600 MG TAB PO SCH (12:00)
== END 2022-01-02 10:35 | disposition home or self-care (01) | DRG 432 ==
LOC: 2S 14:14 → ED 14:14 → SUATTDRO 16:43 → 2S 18:35

== ENCOUNTER 2022-12-09 09:18 | Inpatient (IN) ==
[2022-12-09] MEDS ORDERED: fentaNYL citrate PF 100 MCG/2 ML VIAL IV STA ×2 (09:53→13:00)
--- NOTE | 2022-12-09 09:58 | Emergency Department Note ---
Impression & Plan Alcoholic cirrhosis, Abdominal pain, Pancytopenia, Total bilirubin, elevated ED Provider Note Provider: Tay Felix MD DATE OF SERVICE: 12/09/2022 CHIEF COMPLAINT: Left abdominal pain and swelling HISTORY OF PRESENT ILLNESS: Patient is a 56-year-old female history of hepatitis C, COPD, esophageal varices, liver cirrhosis presenting here today reporting over the last 3 to 4 days increasing abdominal swelling and pain in the left upper abdomen. Talked with her PCP and GI office via the portal yesterday and came here for evaluation on the recommendation. Denies trauma or falls. Denies leg swelling. Denies fever. Reports it hurts when she moves and she been quite uncomfortable. Tried some Flexeril yesterday but has been helping and does not feel as a muscle spasm. Did not sleep much at all of her night and feels a bit off she reports. Denies nausea or vomiting. Denies bloody stools or bloody vomiting. Denies black stool. Denies significant chest pain. States she does have a history year or 2 ago of having a paracentesis but has not had a repeat of this. Reports she has been sober since the end of October. PAST MEDICAL HISTORY: As noted above MEDICATIONS: Reviewed home medication SOCIAL HISTORY: lives at home with , sober since the end october PHYSICAL EXAM: GENERAL: alert and oriented in no acute distress on stretcher Head: normocephalic and atraumatic EYES: No injection, discharge or icterus. NECK: Trachea midline. Supple. ENT: Mucous membranes pink and moist. LUNGS: Airway patent. No retractions. Breath sounds clear the pain with deep inspiration in the abdomen HEART: Regular rate and rhythm. No chest wall tenderness ABDOMEN: Moderately distended with particular tenderness in the left upper quadrant. Some slight hemangiomas noted. SKIN: Acyanotic, warm, dry, without rashes EXTREMITIES: Without swelling, tenderness or deformity NEUROLOGICAL: No focal deficits. No aphasia. No facial droop or slurred speech. Ambulatory. EK bpm normal sinus rhythm. No PVC or PAC. No acute ST segment elevation or depression with a QTc of 491. CONTINUOUS CARDIAC MONITORING: was ordered and showed a heart rate of 60s-70s bpm in normal sinus rhythm Patient's laboratory studies and imaging reviewed. Differential includes infections, diverticulitis, UTI, obstruction, mesenteric ischemia, aortic pathology, inflammatory bowel disease, renal colic, PUD, pancreatitis, biliary pathology, hernia, volvulus, constipation, as well as other pathologies. IMPRESSION/MEDICAL DECISION MAKING: Patient with liver history now with increased abdominal swelling. Increased pain to left upper quadrant but no trauma reported. Not unstable. Doubt intra- abdominal bleeding but question ascites. No significant swelling of the lower extremities. Denies GI bleed symptoms. Denies fever not febrile here. Lower suspicion for infectious cause. Will send for CT scan to further classify intra-abdominal findings. Blood work sent. Given some fentanyl initially for pain control. Blood work here with some worsened anemia compared to lab value from last year. Chronic thrombocytopenia and anemia noted. Hypokalemia noted at 2.7. Mildly elevated bilirubin of 4.1 noted higher than last baseline. No signs of significant renal dysfunction today. Slightly elevated lipase but doubt pancreatitis. Negative urinalysis and COVID testing here. Lactate mildly elevated. Want to avoid fluid overload in this cirrhotic patient and lower s uspicion for gross sepsis. Chest x-ray per radiology without significant fluid collections noted. CT abdomen pelvis questions splenomegaly and cirrhosis with small to moderate ascites and portal colopathy versus nonspecific colitis. No evidence obstruction or diverticulitis by CT report. Patient's procalcitonin not elevated. Again low suspicion for sepsis. Some component of increased fluid may be at play. Does report she is been sober for several weeks but now appears to have some decompensation. Has been taking spironolactone. Not on Lasix. Discussed with her staying for further GI evaluation and care. Believe component of this is developing ascites unsure exactly why she is having some worsening of her liver function at this point. Hospitalist contacted. DIAGNOSIS: Abdominal pain, liver cirrhosis, elevated bilirubin DISPOSITION: Hospitalist will evaluate Patient was agreeable with this plan. Past Med/Surg History Medical History Alcohol abuse Alcoholic cirrhosis Anxiety and depression Ascites Cirrhosis of liver (11/21/12) COPD (chronic obstructive pulmonary disease) Hepatitis C treated with [facility] in [facility] pt is now negative Hypokalemia Portal hypertension Thrombocytopenia Transaminitis Surgical History History of total right hip replacement History of tubal ligation Family History Mother Cervical cancer Social History (Updated 12/09/22 @ 14:31 by Catia Corona PA-C) Smoking Status: Former smoker Tobacco Type: Cigarettes Cigarettes Per Day: recently quit; Second Hand Exposure: No; Hx Alcohol Use: Yes (last drink 11/14/22) Alcohol type: beer and hard liquor Hx Substance Use: No Preferred Language: Hebrew Communication Ability: Effective Inside Steward/Stewardess Required: No Beliefs That Will Affect Care: None marital status: Current Living Situation: Spouse Feels Safe at Home: Yes Assistive Devices: Oxygen - at Night Allergies Allergies Allergy/AdvReac Type Severity Reaction Status Date / Time codeine AdvReac Severe upset Verified 12/09/22 11:03 stomach Home Meds Home Medications Medication Instructions Recorded Confirmed albuterol sulfate 90 mcg/actuation 2 puff inhalation Q4 PRN Wheezing 01/08/19 12/09/22 aerosol inhaler omeprazole 40 mg capsule,delayed 40 mg PO DAILY 10/30/19 12/09/22 release cyclobenzaprine 5 mg tablet 5 mg PO DAILY PRN MUSCLE SPASMS 03/28/21 12/09/22 potassium chloride 10 mEq 10 meq PO DAILY PRN as needed 03/28/21 12/09/22 capsule,extended release umeclidinium 62.5 mcg-vilanterol 1 inh inhalation DAILY 03/28/21 12/09/22 25 mcg/actuation powdr for inhalation (Anoro Ellipta) multivitamin 1 tab PO DAILY 12/29/21 12/09/22 spironolactone 25 mg tablet 25 mg PO DAILY 12/29/21 12/09/22 thiamine HCl (vitamin B1) 100 mg 100 mg PO DAILY 12/29/21 12/09/22 tablet ferrous sulfate 325 mg (65 mg 325 mg PO UD 10/10/22 12/09/22 iron) tablet (iron) hydroxyzine HCl 25 mg tablet 25 mg PO HS 10/10/22 12/09/22 Results & Data (ED) Vital Signs Vital Signs - 24 hr 12/09/22 09:28 12/09/22 10:14 12/09/22 10:31 Temperature 36.4 C L Temperature Source Temporal Artery Scan Pulse Rate 78 72 Pulse Rate [Apical] 82 Pulse Rate from SpO2 Sensor Respiratory Rate 18 Respiratory Effort / Characteristics Respiratory Depth Normal Respiratory Pattern Blood Pressure 101/65 Blood Pressure [Right Arm] 106/59 L Blood Pressure Mean 77 Blood Pressure Mean [Right Arm] 74 Blood Pressure Position Sitting Pulse Oximetry 94 93 Oxygen Delivery Method Room Air Room Air Sepsis Recent Fever Within 48 Hours No Sepsis New/Unexplained Change in Mental Status No Sepsis Action Taken by Nursing No Action Required 12/09/22 10:31 12/09/22 11:09 12/09/22 12:00 Temperature Temperature Source Pulse Rate 68 69 Pulse Rate [Apical] Pulse Rate from SpO2 Sensor 68 71 Respiratory Rate 14 20 Respiratory Effort / Characteristics Respiratory Depth Respiratory Pattern Blood Pressure 112/78 109/77 Blood Pressure [Right Arm] Blood Pressure Mean 89 87 Blood Pressure Mean [Right Arm] Blood Pressure Position Pulse Oximetry 93 95 96 Oxygen Delivery Method Room Air Room Air Room Air Sepsis Recent Fever Within 48 Hours Sepsis New/Unexplained Change in Mental Status Sepsis Action Taken by Nursing 12/09/22 13:00 12/09/22 13:05 12/09/22 14:14 Temperature Temperature Source Pulse Rate 69 71 Pulse Rate [Apical] Pulse Rate from SpO2 Sensor 69 Respiratory Rate 17 16 Respiratory Effort / Characteristics Non-Labored Spontaneous Respiratory Depth Normal Respiratory Pattern Regular Blood Pressure 114/71 Blood Pressure [Right Arm] Blood Pressure Mean 85 Blood Pressure Mean [Right Arm] Blood Pressure Position Pulse Oximetry 96 94 Oxygen Delivery Method Room Air Room Air Sepsis Recent Fever Within 48 Hours Sepsis New/Unexplained Change in Mental Status Sepsis Action Taken by Nursing 12/09/22 14:00 12/09/22 15:16 Temperature Temperature Source Pulse Rate 65 62 Pulse Rate [Apical] Pulse Rate from SpO2 Sensor 64 Respiratory Rate 18 15 Respiratory Effort / Characteristics Respiratory Depth Respiratory Pattern Blood Pressure 129/77 121/59 L Blood Pressure [Right Arm] Blood Pressure Mean 94 79 Blood Pressure Mean [Right Arm] Blood Pressure Position Pulse Oximetry 93 94 Oxygen Delivery Method Room Air Room Air Sepsis Recent Fever Within 48 Hours Sepsis New/Unexplained Change in Mental Status Sepsis Action Taken by Nursing Laboratory Data 12/09/22 10:05 12/09/22 10:05 Lab Results 12/09/22 12/09/22 12/09/22 Range/Units 10:05 10:05 10:05 WBC 3.46 L (4.8-10.8) K/ul RBC 2.90 L (4.20-5.40) M/uL Hgb 9.9 L (12.0-16.0) g/dl POC Hgb (12.0-16.0) g/dl Hct 28.8 L (37.0-47.0) % POC Hct (37-47) % MCV 99.3 (80.0-100.0) fL MCH 34.1 H (25.0-34.0) pg MCHC 34.4 (32.0-36.0) g/dL RDW Std Deviation 65.6 H (36.4-46.3) fL RDW Coeff of Radha 18.2 H (11.5-14.5) % Plt Count 68 L (130-400) K/uL MPV 12.8 H (9.4-12.4) fL Immature Gran % (Auto) 0.3 % Neut % (Auto) 62.8 % Lymph % (Auto) 15.3 % [place] % (Auto) 17.9 % Eos % (Auto) 2.0 % Baso % (Auto) 1.7 % Neut # (Auto) 2.17 (1.40-6.50) K/uL Lymph # (Auto) 0.53 L (1.2-3.4) K/uL [place] # (Auto) 0.62 H (0.11-0.59) K/uL Eos # (Auto) 0.07 (0-0.50) K/uL Baso # (Auto) 0.06 (0-0.2) K/uL Immature Gran # (Auto) 0.01 (0.01-0.20) K/uL Platelet Estimate Decreased L (Normal) Giant Platelets 1+ Polychromasia 1+ PT 13.6 H (9.0-12.0) Seconds INR 1.3 H (0.9-1.1) POC Sodium (135-144) mmol/L Sodium 136 (136-145) mmol/L POC Potassium (3.3-5.0) mmol/L Potassium 2.7 L (3.5-5.1) mmol/L POC Chloride (101-112) mmol/L Chloride 103 (98-107) mmol/L Carbon Dioxide 24 (21-32) mmol/L POC Total CO2 (24-31) mmol/L Anion Gap 9 (3-11) POC Anion Gap (16-25) mmol/L POC BUN (7-18) mg/dl BUN 8 (6-23) mg/dl Creatinine 0.69 (0.6-1.2) mg/dl POC Creatinine (0.6-1.3) mg/dl Est Cr Clr Drug Dosing 77.7 ml/min Est GFR ( Amer) 112.0 ml/min Est GFR (Non-Af Amer) 96.6 ml/min BUN/Creatinine Ratio 11.6 (10-20) Glucose 106 H (70-99(Fasting)) mg/dl POC Glucose (other) (70-99) mg/dl Lactate (0.4-2.0) mmol/L Calcium 8.2 L (8.6-10.3) mg/dl POC Ioniz Calcium Simon (1.12-1.32) mmol/l Total Bilirubin 4.1 H (0.2-1.0) mg/dl AST 94 H (13-39) U/L ALT 34 (7-52) U/L Alkaline Phosphatase 119 H (34-104) U/L Ammonia (18-72) umol/L Troponin I High Sens 6.0 (0-14) pg/ml Total Protein 6.9 (6.0-8.3) gm/dl Albumin 2.8 L (3.4-5.0) gm/dl Globulin 4.1 H (2.5-4.0) gm/dl Albumin/Globulin Ratio 0.7 L (0.9-2) Lipase 121 H (11-82) U/L Procalcitonin (0-0.5) ng/ml Urine Color Urine Appearance (Clear) Urine pH (4.5-7.5) Ur Specific [place] (1.000-1.030) Urine Protein (Negative) Urine Glucose (UA) (Negative) Urine Ketones (Negative) Urine Blood (Negative) Urine Nitrite (Negative) Urine Bilirubin (Negative) Urine Urobilinogen (Negative) Ur Leukocyte Esterase (Negative) Fluid Comment SARS-CoV-2, RNA, NAAT (NEGATIVE) 12/09/22 12/09/22 12/09/22 Range/Units 10:05 10:05 10:05 WBC (4.8-10.8) K/ul RBC (4.20-5.40) M/uL Hgb (12.0-16.0) g/dl POC Hgb (12.0-16.0) g/dl Hct (37.0-47.0) % POC Hct (37-47) % MCV (80.0-100.0) fL MCH (25.0-34.0) pg MCHC (32.0-36.0) g/dL RDW Std Deviation (36.4-46.3) fL RDW Coeff of Radha (11.5-14.5) % Plt Count (130-400) K/uL MPV (9.4-12.4) fL Immature Gran % (Auto) % Neut % (Auto) % Lymph % (Auto) % [place] % (Auto) % Eos % (Auto) % Baso % (Auto) % Neut # (Auto) (1.40-6.50) K/uL Lymph # (Auto) (1.2-3.4) K/uL [place] # (Auto) (0.11-0.59) K/uL Eos # (Auto) (0-0.50) K/uL Baso # (Auto) (0-0.2) K/uL Immature Gran # (Auto) (0.01-0.20) K/uL Platelet Estimate (Normal) Giant Platelets Polychromasia PT (9.0-12.0) Seconds INR (0.9-1.1) POC Sodium (135-144) mmol/L Sodium (136-145) mmol/L POC Potassium (3.3-5.0) mmol/L Potassium (3.5-5.1) mmol/L POC Chloride (101-112) mmol/L Chloride (98-107) mmol/L Carbon Dioxide (21-32) mmol/L POC Total CO2 (24-31) mmol/L Anion Gap (3-11) POC Anion Gap (16-25) mmol/L POC BUN (7-18) mg/dl BUN (6-23) mg/dl Creatinine (0.6-1.2) mg/dl POC Creatinine (0.6-1.3) mg/dl Est Cr Clr Drug Dosing ml/min Est GFR ( Amer) ml/min Est GFR (Non-Af Amer) ml/min BUN/Creatinine Ratio (10-20) Glucose (70-99(Fasting)) mg/dl POC Glucose (other) (70-99) mg/dl Lactate 2.3 H* (0.4-2.0) mmol/L Calcium (8.6-10.3) mg/dl POC Ioniz Calcium Simon (1.12-1.32) mmol/l Total Bilirubin (0.2-1.0) mg/dl AST (13-39) U/L ALT (7-52) U/L Alkaline Phosphatase (34-104) U/L Ammonia (18-72) umol/L Troponin I High Sens (0-14) pg/ml Total Protein (6.0-8.3) gm/dl Albumin (3.4-5.0) gm/dl Globulin (2.5-4.0) gm/dl Albumin/Globulin Ratio (0.9-2) Lipase (11-82) U/L Procalcitonin 0.09 (0-0.5) ng/ml Urine Color Urine Appearance (Clear) Urine pH (4.5-7.5) Ur Specific [place] (1.000-1.030) Urine Protein (Negative) Urine Glucose (UA) (Negative) Urine Ketones (Negative) Urine Blood (Negative) Urine Nitrite (Negative) Urine Bilirubin (Negative) Urine Urobilinogen (Negative) Ur Leukocyte Esterase (Negative) Fluid Comment SARS-CoV-2, RNA, NAAT NEGATIVE (NEGATIVE) 12/09/22 12/09/22 12/09/22 Range/Units 10:32 10:35 11:21 WBC (4.8-10.8) K/ul RBC (4.20-5.40) M/uL Hgb (12.0-16.0) g/dl POC Hgb 10.9 L (12.0-16.0) g/dl Hct (37.0-47.0) % POC Hct 32 L (37-47) % MCV (80.0-100.0) fL MCH (25.0-34.0) pg MCHC (32.0-36.0) g/dL RDW Std Deviation (36.4-46.3) fL RDW Coeff of Radha (11.5-14.5) % Plt Count (130-400) K/uL MPV (9.4-12.4) fL Immature Gran % (Auto) % Neut % (Auto) % Lymph % (Auto) % [place] % (Auto) % Eos % (Auto) % Baso % (Auto) % Neut # (Auto) (1.40-6.50) K/uL Lymph # (Auto) (1.2-3.4) K/uL [place] # (Auto) (0.11-0.59) K/uL Eos # (Auto) (0-0.50) K/uL Baso # (Auto) (0-0.2) K/uL Immature Gran # (Auto) (0.01-0.20) K/uL Platelet Estimate (Normal) Giant Platelets Polychromasia PT (9.0-12.0) Seconds INR (0.9-1.1) POC Sodium 139 (135-144) mmol/L Sodium (136-145) mmol/L POC Potassium 2.8 L (3.3-5.0) mmol/L Potassium (3.5-5.1) mmol/L POC Chloride 100 L (101-112) mmol/L Chloride (98-107) mmol/L Carbon Dioxide (21-32) mmol/L POC Total CO2 24 (24-31) mmol/L Anion Gap (3-11) POC Anion Gap 19.0 (16-25) mmol/L POC BUN 5 L (7-18) mg/dl BUN (6-23) mg/dl Creatinine (0.6-1.2) mg/dl POC Creatinine 0.7 (0.6-1.3) mg/dl Est Cr Clr Drug Dosing ml/min Est GFR ( Amer) ml/min Est GFR (Non-Af Amer) ml/min BUN/Creatinine Ratio (10-20) Glucose (70-99(Fasting)) mg/dl POC Glucose (other) 114 H (70-99) mg/dl Lactate (0.4-2.0) mmol/L Calcium (8.6-10.3) mg/dl POC Ioniz Calcium Simon 1.07 L (1.12-1.32) mmol/l Total Bilirubin (0.2-1.0) mg/dl AST (13-39) U/L ALT (7-52) U/L Alkaline Phosphatase (34-104) U/L Ammonia 36.0 (18-72) umol/L Troponin I High Sens (0-14) pg/ml Total Protein (6.0-8.3) gm/dl Albumin (3.4-5.0) gm/dl Globulin (2.5-4.0) gm/dl Albumin/Globulin Ratio (0.9-2) Lipase (11-82) U/L Procalcitonin (0-0.5) ng/ml Urine Color Yellow Urine Appearance Clear (Clear) Urine pH 6.0 (4.5-7.5) Ur Specific [place] 1.004 (1.000-1.030) Urine Protein Negative (Negative) Urine Glucose (UA) Negative (Negative) Urine Ketones Negative (Negative) Urine Blood Negative (Negative) Urine Nitrite Negative (Negative) Urine Bilirubin Negative (Negative) Urine Urobilinogen Negative (Negative) Ur Leukocyte Esterase Negative (Negative) Fluid Comment SARS-CoV-2, RNA, NAAT (NEGATIVE) 12/09/22 Range/Units Unknown WBC (4.8-10.8) K/ul RBC (4.20-5.40) M/uL Hgb (12.0-16.0) g/dl POC Hgb (12.0-16.0) g/dl Hct (37.0-47.0) % POC Hct (37-47) % MCV (80.0-100.0) fL MCH (25.0-34.0) pg MCHC (32.0-36.0) g/dL RDW Std Deviation (36.4-46.3) fL RDW Coeff of Radha (11.5-14.5) % Plt Count (130-400) K/uL MPV (9.4-12.4) fL Immature Gran % (Auto) % Neut % (Auto) % Lymph % (Auto) % [place] % (Auto) % Eos % (Auto) % Baso % (Auto) % Neut # (Auto) (1.40-6.50) K/uL Lymph # (Auto) (1.2-3.4) K/uL [place] # (Auto) (0.11-0.59) K/uL Eos # (Auto) (0-0.50) K/uL Baso # (Auto) (0-0.2) K/uL Immature Gran # (Auto) (0.01-0.20) K/uL Platelet Estimate (Normal) Giant Platelets Polychromasia PT (9.0-12.0) Seconds INR (0.9-1.1) POC Sodium (135-144) mmol/L Sodium (136-145) mmol/L POC Potassium (3.3-5.0) mmol/L Potassium (3.5-5.1) mmol/L POC Chloride (101-112) mmol/L Chloride (98-107) mmol/L Carbon Dioxide (21-32) mmol/L POC Total CO2 (24-31) mmol/L Anion Gap (3-11) POC Anion Gap (16-25) mmol/L POC BUN (7-18) mg/dl BUN (6-23) mg/dl Creatinine (0.6-1.2) mg/dl POC Creatinine (0.6-1.3) mg/dl Est Cr Clr Drug Dosing ml/min Est GFR ( Amer) ml/min Est GFR (Non-Af Amer) ml/min BUN/Creatinine Ratio (10-20) Glucose (70-99(Fasting)) mg/dl POC Glucose (other) (70-99) mg/dl Lactate (0.4-2.0) mmol/L Calcium (8.6-10.3) mg/dl POC Ioniz Calcium Simon (1.12-1.32) mmol/l Total Bilirubin (0.2-1.0) mg/dl AST (13-39) U/L ALT (7-52) U/L Alkaline Phosphatase (34-104) U/L Ammonia (18-72) umol/L Troponin I High Sens (0-14) pg/ml Total Protein (6.0-8.3) gm/dl Albumin (3.4-5.0) gm/dl Globulin (2.5-4.0) gm/dl Albumin/Globulin Ratio (0.9-2) Lipase (11-82) U/L Procalcitonin (0-0.5) ng/ml Urine Color Urine Appearance (Clear) Urine pH (4.5-7.5) Ur Specific [place] (1.000-1.030) Urine Protein (Negative) Urine Glucose (UA) (Negative) Urine Ketones (Negative) Urine Blood (Negative) Urine Nitrite (Negative) Urine Bilirubin (Negative) Urine Urobilinogen (Negative) Ur Leukocyte Esterase (Negative) Fluid Comment SARS-CoV-2, RNA, NAAT (NEGATIVE) Administered Medications Potassium Chloride (K Nitin / Wtr) 10 meq in 100 mls @ 100 mls/hr IV Q1H STEPHAN; Protocol Stop: 12/09/22 15:44 Last Admin: 12/09/22 15:23 Dose: 100 mls/hr Documented By: Infusion: 12/09/22 15:21 Dose: 0 mls/hr Documented By: Admin: 12/09/22 14:16 Dose: 100 mls/hr Documented By: HOLLIE Discontinued Medications Fentanyl Citrate (Fentanyl Citrate Pf 100 Mcg/2 Ml Vial) 50 mcg IV NOW STA Stop: 12/09/22 09:54 Last Admin: 12/09/22 10:19 Dose: 50 mcg Documented By: HANNAH Fentanyl Citrate (Fentanyl Citrate Pf 100 Mcg/2 Ml Vial) 50 mcg IV NOW STA Stop: 12/09/22 13:01 Last Admin: 12/09/22 13:06 Dose: 50 mcg Documented By: HOLLIE Ioversol (Optiray 350 100ml) 94 ml IV ONCE ONE Stop: 12/09/22 10:51 Last Admin: 12/09/22 10:50 Dose: 94 ml Documented By: ALBERT Potassium Chloride (Potassium Chloride Crtab 20 Meq Tabcr) 40 meq PO NOW STA Stop: 12/09/22 14:18 Last Admin: 12/09/22 15:21 Dose: 40 meq Documented By: HOLLIE Imaging Data Radiologist's Impression: Chest X-Ray 12/09/22 09:44 SINGLE VIEW CHEST CLINICAL HISTORY: Abdominal swelling FINDINGS: An AP, portable, upright chest radiograph is compared to study dated 10/10/2022. The cardiomediastinal silhouette is unremarkable. There is bibasilar scarring/atelectasis. The lungs and pleural spaces are otherwise clear. No pneumothorax is seen. The skeletal structures appear osteopenic. There are chronic/healed right-sided rib fractures. IMPRESSION: No acute cardiopulmonary abnormality. ACT 112: Negative or not required by law. Electronically signed by: Ismael Post M.D. 12/09/2022 10:25 AM Abdomen/Pelvis CT 12/09/22 09:[address] WITH IV CONTRAST CT DOSE: 348.71 mGy.cm HISTORY: swelling, L abd pain, hx cirrhosis TECHNIQUE: Multiaxial CT images of the abdomen and pelvis were performed following the use of intravenous contrast. A dose lowering technique was utilized adhering to the principles of ALARA. COMPARISON STUDY: Abdomen and pelvis CT 06/25/2018. FINDINGS: Emphysema and mild dependent changes seen at the lung bases. No pneumoperitoneum. No pneumatosis. There is a single screw within the right acetabulum. No acute fractures identified. There is a calcified granuloma within the right middle lobe. Cholelithiasis. No gallbladder wall thickening. Nodular contour to the liver consistent with cirrhosis. The main portal vein is patent. The spleen remains enlarged. The adrenal glands and kidneys are unremarkable. Mild calcified plaque within the normal caliber abdominal aorta. A few prominent retroperitoneal and periportal lymph nodes remain stable. This is likely due to the patient's underlying cirrhosis. The bladder is unremarkable. The uterus and bilateral adnexa are within normal limits. There is a small to moderate amount of ascites which has progressed. Colonic diverticulosis. No evidence for acute diverticulitis. Normal appendix. Thickening within the proximal large bowel is likely due to portal colopathy. Normal pancreas. IMPRESSION: 1. Cirrhosis and splenomegaly again noted. 2. Cholelithiasis. No gallbladder wall thickening. 3. Small to moderate amount of ascites which has progressed. 4. Thickening within the proximal colon is likely represents portal colopathy. A nonspecific colitis could also a similar appearance. 5. Normal appendix. 6. No evidence for a bowel obstruction. 7. Colonic diverticulosis. No evidence for acute diverticulitis. ACT 112: Negative or not required by law. Electronically signed by: Jeremy Jones M.D. 12/09/2022 12:05 PM Paracentesis Ultrasound 12/09/22 13:53 Ultrasound-guided paracentesis INDICATION: Ascites PROCEDURE: Procedure and risks were explained. Informed consent was obtained. A final timeout was completed. The left lower quadrant was prepped and draped in sterile fashion. 1% buffered lidocaine was utilized for skin anesthesia. Utilizing ultrasound guidance, a 5 [place] safety centesis catheter was advanced into the pocket of ascites. Ultrasound images were obtained. 2.1 L of yellow ascites fluid was removed, with 1 L sent to the lab for analysis. The catheter was then removed and Band-Aid applied. The patient tolerated the procedure well. Vital signs will be monitored prior to discharge. IMPRESSION: Ultrasound-guided paracentesis as detailed above. Performed, dictated, and signed by Berny Bales PA-C; to be co-signed by Dr. Jeremy Jones. Discharge Plan Visit Data Chief Complaint: Abdominal Pain Stated Complaint: SWOLLEN STOMACH, LEFT SIDE PAIN ED Provider: Tay Felix Discharge Problem: Alcoholic cirrhosis, Abdominal pain, Pancytopenia, Total bilirubin, elevated Patient Disposition: Being Evaluated by Hospitalist Forms Stand Alone Forms: My [facility] Prescriptions Prescriptions: No Action albuterol sulfate 90 mcg/actuation Hfa Aerosol Inhaler 2 puff INHALATION Q4 PRN (Reason: Wheezing) omeprazole 40 mg capsule,delayed release(DR/EC) 40 mg PO DAILY cyclobenzaprine 5 mg tablet 5 mg PO DAILY PRN (Reason: MUSCLE SPASMS) Anoro Ellipta 62.5-25 mcg/actuation blister with device 1 inh INHALATION DAILY potassium chloride 10 mEq capsule, extended release 10 meq PO DAILY PRN (Reason: as needed) Patient Comments: does not take regularly hydroxyzine HCl 25 mg tablet 25 mg PO HS ferrous sulfate [iron] 325 mg (65 mg iron) Tablet 325 mg PO UD multivitamin Tablet 1 tab PO DAILY thiamine HCl (vitamin B1) 100 mg Tablet 100 mg PO DAILY Patient Comments: does not take regularly spironolactone 25 mg tablet 25 mg PO DAILY Patient Comments: patient self stopped a few months ago Referrals Referrals: Sumi Dailey DO [Primary Care Provider] -
--- NOTE | 2022-12-09 10:26 | XRay Report ---
SINGLE VIEW CHEST CLINICAL HISTORY: Abdominal swelling FINDINGS: An AP, portable, upright chest radiograph is compared to study dated 10/10/2022. The cardiom ediastinal silhouette is unremarkable. There is bibasilar scarring/atelectasis. The lungs and pleural spaces are otherwise clear. No pneumothorax is seen. The skeletal structures appear osteopenic. Ther e are chronic/healed right-sided rib fractures. IMPRESSION: No acute cardiopulmonary abnormality. ACT 112: Negative or not required by law. Electronically signed by: Ismael Post M.D. 12/09/2022 10:25 AM
[2022-12-09 10:45] LABS: iSTAT Creatinine 0.7 mg/dl (0.6-1.3); iSTAT Hemoglobin 10.9 g/dl (12.0-16.0); iSTAT Ionized Calcium 1.07 mmol/l (1.12-1.32); iSTAT Potassium 2.8 mmol/L (3.3-5.0)
[2022-12-09] MEDS ORDERED: OPTIRAY 350 100ml IV ONE (10:50)
[2022-12-09 11:10] LABS: Appearance Urine Clear (Clear); Bilirubin Urine Negative (Negative); Blood Urine Negative (Negative); Color Urine Yellow; Glucose Urine UA Negative (Negative); Ketones Urine Negative (Negative); Leukocyte Esterase Urine Negative (Negative); Nitrite Urine Negative (Negative); Protein Urine Negative (Negative); Specific Gravity Urine 1.004 (1.000-1.030); Urobilinogen Urine Negative (Negative)
[2022-12-09 11:23] LABS: Albumin Globulin Ratio 0.7 (0.9-2); Albumin Level 2.8 gm/dl (3.4-5.0); BUN Creatinine Ratio 11.6 (10-20); Bilirubin,Total 4.1 mg/dl (0.2-1.0); Calcium 8.2 mg/dl (8.6-10.3); Creatinine Clr Calc Pharmacy 77.7 ml/min; Est GFR (Non-African American) 96.6 ml/min; Globulin 4.1 gm/dl (2.5-4.0); Potassium 2.7 mmol/L (3.5-5.1); Total Protein 6.9 gm/dl (6.0-8.3)
[2022-12-09 11:38] LABS: Hematocrit (blood only) 28.8 % (37.0-47.0); Hemoglobin 9.9 g/dl (12.0-16.0); Mean Corpuscular Hemoglobin 34.1 pg (25.0-34.0); Mean Corpuscular Hgb Conc 34.4 g/dL (32.0-36.0); Mean Corpuscular Volume 99.3 fL (80.0-100.0); Mean Platelet Volume 12.8 fL (9.4-12.4); Platelet Count 68 K/uL (130-400); RDW Coefficient of Variation 18.2 % (11.5-14.5); RDW Standard Deviation 65.6 fL (36.4-46.3); White Blood Count 3.46 K/ul (4.8-10.8)
[2022-12-09 11:39] LABS: Basophils # (auto) 0.06 K/uL (0-0.2); Basophils % (auto) 1.7 %; Eosinophils # (auto) 0.07 K/uL (0-0.50); Giant Platelets 1+; Immature Granulocytes # (auto) 0.01 K/uL (0.01-0.20); Immature Granulocytes % (auto) 0.3 %; Lymphocytes # (auto) 0.53 K/uL (1.2-3.4); Lymphocytes % (auto) 15.3 %; Monocytes # (auto) 0.62 K/uL (0.11-0.59); Monocytes % (auto) 17.9 %; Neutrophils # (auto) 2.17 K/uL (1.40-6.50); Neutrophils % (auto) 62.8 %; Platelet Estimate Decreased (Normal); Polychromasia 1+
[2022-12-09 11:52] LABS: INR 1.3 (0.9-1.1); Prothrombin Time 13.6 Seconds (9.0-12.0)
--- NOTE | 2022-12-09 12:06 | CT Scan Report ---
ABDOMEN AND PELVIS CT WITH IV CONTRAST CT DOSE: 348.71 mGy.cm HISTORY: swelling, L abd pain, hx cirrhosis TECHNIQUE: Multiaxial CT images of the abdomen and pelvis were performed following the use of intrave nous contrast. A dose lowering technique was utilized adhering to the principles of ALARA. COMPARISON STUDY: Abdomen and pelvis CT 06/25/2018. FINDINGS: Emphysema and mild dependent changes seen at the lung bases. No pneumoperitoneum. No pneuma tosis. There is a single screw within the right acetabulum. No acute fractures identified. There is a calcified granuloma within the right middle lobe. Cholelithiasis. No gallbladder wall thickening. No dular contour to the liver consistent with cirrhosis. The main portal vein is patent. The spleen jayjay ins enlarged. The adrenal glands and kidneys are unremarkable. Mild calcified plaque within the davey l caliber abdominal aorta. A few prominent retroperitoneal and periportal lymph nodes remain stable. This is likely due to the patient's underlying cirrhosis. The bladder is unremarkable. The uterus and bilateral adnexa are within normal limits. There is a small to moderate amount of ascites which has progressed. Colonic diverticulosis. No evidence for acute diverticulitis. Normal appendix. Thickening within the proximal large bowel is likely due to portal colopathy. Normal pancreas. IMPRESSION: 1. Cirrhosis and splenomegaly again noted. 2. Cholelithiasis. No gallbladder wall thickening. 3. Small to moderate amount of ascites which has progressed. 4. Thickening within the proximal colon is likely represents portal colopathy. A nonspecific colitis could also a similar appearance. 5. Normal appendix. 6. No evidence for a bowel obstruction. 7. Colonic diverticulosis. No evidence for acute diverticulitis. ACT 112: Negative or not required by law. Electronically signed by: Jeremy Jones M.D. 12/09/2022 12:05 PM
[2022-12-09] MEDS: POTASSIUM CHLORIDE / WTR 10 MEQ/100 ML PLCT IV SCH ×2 (14:16→15:23)
[2022-12-09] MEDS ORDERED: POTASSIUM CHLORIDE CRTAB 20 MEQ TABCR PO STA (14:17)
--- NOTE | 2022-12-09 14:38 | History & Physical Report ---
Date of Service December 09, 2022 Assessment & Plan (1) Ascites: (2) Alcoholic cirrhosis: (3) Abdominal pain: (4) Transaminitis: (5) Pancytopenia: Plan This is a 56-year-old female who has significant past medical history of alcoholic cirrhosis, hepatitis C antibody positive, protein calorie malnutrition, history of alcohol abuse, history of tobacco abuse, depression, pancytopenia, COPD and nocturnal hypoxemia who presents to ED secondary to abdominal pain x4 days. Abdominal pain alcoholic cirrhosis Ascites Transaminitis Constipation History of hep C treated with Harvoni Admit to telemetry Obtain diagnostic and therapeutic paracentesis, send for culture, cell count and cytology will await paracentesis to determine if albumin is necessary Empirically cover with ceftriaxone Lactulose 20 g twice daily to promote bowel movement, can discontinue when patient moves bowels No signs of hepatic encephalopathy Continue Aldactone for now Consult gastroenterology for further diuretic recommendation Total bilirubin 4.1, AST 94, ALT 93, alkaline phosphatase 119 Hypokalemia Received 10 mEq K rider x2 in ED will give additional 40 mEq orally and additional dose at 1900 Pancytopenia In setting of cirrhosis Hemoglobin 9.9, platelets 68 No signs or symptoms of bleeding History of tobacco and alcohol use Currently remains abstinent DVT prophylaxis: SCDs Dispo: Admit to telemetry, diagnostic and therapeutic paracentesis PCP: Howard Vidal code A total of 75 minutes was spent with greater than 50% of that time personally viewing all current laboratory work and diagnostic imaging studies obtained in the ED. Additionally, I was able to view the patients past medication reconciliation and history with direct visualization in the patients chart. Included in the time above, a portion of that time was spent assessing the patient while discussing and collaborating with specialists, if necessary, and making medical decision making on treatment plan. All of the above was collaborated with Dr. Borjas. Please see addendum for further details. History of Present Illness Chief Complaint: Abdominal pain x4 days. Primary Care Provider: Sumi Dailey DO This is a 56-year-old female who has significant past medical history of alcoholic cirrhosis, hepatitis C antibody positive, protein calorie malnutrition, history of alcohol abuse, history of tobacco abuse, depression, pancytopenia, COPD and nocturnal hypoxemia who presents to ED secondary to abdominal pain x4 days. Patient follows [facility]. She was last hospitalized December 2021 for GI bleed under which she went EGD and banding of esophageal varices. Since then she has been on and off with alcohol use. She states her last drink which November 14, 2022. She notes over the last 4 days increasing abdominal pain and distention. She admits to not being compliant with her Aldactone. She had some nausea this morning but denies any vomiting or hematemesis. She has not moved her bowels in 4 to 5 days as well. She has been using [id number] stool softeners with Dulcolax and MiraLAX without relief. She denies fever or sweats but complains about being chilled. She does have chronic lightheadedness upon standing. She denies any URI symptoms, chest pain, shortness breath at rest, hemoptysis, vomiting, dysuria, increased urgency or frequency with urination, melena or hematochezia. She does have prior history of paracentesis a few years ago. In ED pt remained hemodynamically stable. Lab work notable for pancytopenia and stable H&H at 9.9 and 28.8. Her INR was mildly elevated at 1.3. She does have hypokalemia at 2.7. She does have a transaminitis with a total bilirubin of 4.1, AST 94 and alkaline phosphatase of 119. Lactic acid is mildly elevated at 2.3. CT abdomen pelvis revealed cirrhosis, cholelithiasis with no gallbladder wall thickening, small to moderate amount of ascites which has progressed as well as the thickening within the proximal colon likely representing a portal colopathy. Allergies Allergy/AdvReac Type Severity Reaction Status Date / Time codeine AdvReac Severe upset Verified 12/09/22 11:03 stomach Home Medications Medication Instructions Recorded Confirmed Type albuterol sulfate 90 mcg/actuation 2 puff inhalation Q4 PRN Wheezing 01/08/19 12/09/22 History aerosol inhaler omeprazole 40 mg capsule,delayed 40 mg PO DAILY 10/30/19 12/09/22 History release cyclobenzaprine 5 mg tablet 5 mg PO DAILY PRN MUSCLE SPASMS 03/28/21 12/09/22 History potassium chloride 10 mEq 10 meq PO DAILY PRN as needed 03/28/21 12/09/22 History capsule,extended release umeclidinium 62.5 mcg-vilanterol 1 inh inhalation DAILY 03/28/21 12/09/22 History 25 mcg/actuation powdr for inhalation (Anoro Ellipta) multivitamin 1 tab PO DAILY 12/29/21 12/09/22 History spironolactone 25 mg tablet 25 mg PO DAILY 12/29/21 12/09/22 History thiamine HCl (vitamin B1) 100 mg 100 mg PO DAILY 12/29/21 12/09/22 History tablet ferrous sulfate 325 mg (65 mg 325 mg PO UD 10/10/22 12/09/22 History iron) tablet (iron) hydroxyzine HCl 25 mg tablet 25 mg PO HS 10/10/22 12/09/22 History Past Med/Surg History Medical History Alcohol abuse Alcoholic cirrhosis Anxiety and depression Ascites Cirrhosis of liver (11/21/12) COPD (chronic obstructive pulmonary disease) Hepatitis C treated with harvoni in [facility] pt is now negative Hypokalemia Portal hypertension Thrombocytopenia Transaminitis Surgical History History of total right hip replacement History of tubal ligation Family History Mother Cervical cancer Social History (Updated 12/09/22 @ 14:31 by Catia Corona PA-C) Smoking Status: Light tobacco smoker Tobacco Type: Cigarettes Cigarettes Per Day: recently quit; Second Hand Exposure: No; Do You Dip or Chew Tobacco: No; Tobacco Cessation Education Requested by Patient: Yes Hx Alcohol Use: No Hx Substance Use: No Preferred Language: Mexican Communication Ability: Effective Cardiopulmonary Technologist Chief Required: No Beliefs That Will Affect Care: None marital status: Current Living Situation: Spouse Other Information That Helps Us Care for You: No Feels Safe at Home: Yes Safety Concerns: Feels Safe At This Time Assistive Devices: Glasses Review of Systems Review of Systems: All systems reviewed & are unremarkable except as noted in HPI & below Physical Exam Physical Exam: Constitutional: WD/WN, vitals as above, NAD, sitting up in bed, pleasant, conversing easily Head: Normocephalic, Atraumatic Eyes: PERRL, conjunctivae normal, anicteric sclerae ENMT: external ear and nose normal, oropharynx normal Neck: trachea midline, no thyromegaly normal visual inspection Respiratory: normal respiratory effort, lungs clear to auscultation, no wheeze, rales, rhonchi. Normal insp/exp effort, no accessory muscle use Cardiovascular: RRR, no murmur, no edema Vessels: no JVD or carotid bruit Chest: normal inspection of chest Abdomen: diminished bowel sounds, firm + distended, TTP diffusely with mild guarding, worse at LUQ, spider angiomata Musculoskeletal: no cyanosis or clubbing, extremities motor strength 5/5 Skin: no rashes, warm and dry normal turgor , ecchymosis to extremities Neurologic: PERRL, EOMI, accommodation nl, no face palsy, no dysarthria CN's II-XI intact bilaterally and moves all extremities Psychiatric: A+Ox3, euthymic affect Lymphatic: no cervical or axillary lymphadenopathy : deferred Results & Data Results & Data Vital Signs (Past 12 Hours) Vital Signs Temp Pulse Pulse Resp BP BP Pulse Ox 12/09/22 14:14 71 12/09/22 13:05 16 94 12/09/22 13:00 69 17 114/71 96 12/09/22 12:00 69 20 109/77 96 12/09/22 11:09 68 14 112/78 95 12/09/22 10:31 93 12/09/22 10:31 82 106/59 L 93 12/09/22 10:14 72 12/09/22 09:28 36.4 C L 78 18 101/65 94 O2 Del Method 12/09/22 14:14 12/09/22 13:05 Room Air 12/09/22 13:00 Room Air 12/09/22 12:00 Room Air 12/09/22 11:09 Room Air 12/09/22 10:31 Room Air 12/09/22 10:31 Room Air 12/09/22 10:14 12/09/22 09:28 Room Air Diagnostic Findings Chest X-Ray 12/09/22 09:44 SINGLE VIEW CHEST CLINICAL HISTORY: Abdominal swelling FINDINGS: An AP, portable, upright chest radiograph is compared to study dated 10/10/2022. The cardiomediastinal silhouette is unremarkable. There is bibasilar scarring/atelectasis. The lungs and pleural spaces are otherwise clear. No pneumothorax is seen. The skeletal structures appear osteopenic. There are chronic/healed right-sided rib fractures. IMPRESSION: No acute cardiopulmonary abnormality. ACT 112: Negative or not required by law. Electronically signed by: Ismael Post M.D. 12/09/2022 10:25 AM Abdomen/Pelvis CT 12/09/22 09:[address] WITH IV CONTRAST CT DOSE: 348.71 mGy.cm HISTORY: swelling, L abd pain, hx cirrhosis TECHNIQUE: Multiaxial CT images of the abdomen and pelvis were performed following the use of intravenous contrast. A dose lowering technique was utilized adhering to the principles of ALARA. COMPARISON STUDY: Abdomen and pelvis CT 06/25/2018. FINDINGS: Emphysema and mild dependent changes seen at the lung bases. No pneumoperitoneum. No pneumatosis. There is a single screw within the right acetabulum. No acute fractures identified. There is a calcified granuloma within the right middle lobe. Cholelithiasis. No gallbladder wall thickening. Nodular contour to the liver consistent with cirrhosis. The main portal vein is patent. The spleen remains enlarged. The adrenal glands and kidneys are unremarkable. Mild calcified plaque within the normal caliber abdominal aorta. A few prominent retroperitoneal and periportal lymph nodes remain stable. This is likely due to the patient's underlying cirrhosis. The bladder is unremarkable. The uterus and bilateral adnexa are within normal limits. There is a small to moderate amount of ascites which has progressed. Colonic diverticulosis. No evidence for acute diverticulitis. Normal appendix. Thickening within the proximal large bowel is likely due to portal colopathy. Normal pancreas. IMPRESSION: 1. Cirrhosis and splenomegaly again noted. 2. Cholelithiasis. No gallbladder wall thickening. 3. Small to moderate amount of ascites which has progressed. 4. Thickening within the proximal colon is likely represents portal colopathy. A nonspecific colitis could also a similar appearance. 5. Normal appendix. 6. No evidence for a bowel obstruction. 7. Colonic diverticulosis. No evidence for acute diverticulitis. ACT 112: Negative or not required by law. Electronically signed by: Jeremy Jones M.D. 12/09/2022 12:05 PM Medications Administered Medication List Potassium Chloride (K Nitin / Wtr) 10 meq in 100 mls @ 100 mls/hr IV Q1H STEPHAN; Protocol Stop: 12/09/22 15:44 Last Admin: 12/09/22 14:16 Dose: 100 mls/hr Documented By: HOLLIE Discontinued Medications Fentanyl Citrate (Fentanyl Citrate Pf 100 Mcg/2 Ml Vial) 50 mcg IV NOW STA Stop: 12/09/22 09:54 Last Admin: 12/09/22 10:19 Dose: 50 mcg Documented By: HANNAH Fentanyl Citrate (Fentanyl Citrate Pf 100 Mcg/2 Ml Vial) 50 mcg IV NOW STA Stop: 12/09/22 13:01 Last Admin: 12/09/22 13:06 Dose: 50 mcg Documented By: HOLLIE Ioversol (Optiray 350 100ml) 94 ml IV ONCE ONE Stop: 12/09/22 10:51 Last Admin: 12/09/22 10:50 Dose: 94 ml Documented By: ALBERT ECG Rate (beats per minute): 64 Rhythm: normal sinus Additional Comments: reviewed by me, qtc 491ms COVID-19 Results Results COVID-19 Adm Lab Results: RBC 2.90 M/uL (4.20-5.40) L 12/09/22 WBC 3.46 K/ul (4.8-10.8) L 12/09/22 Hgb 9.9 g/dl (12.0-16.0) L 12/09/22 Hct 28.8 % (37.0-47.0) L 12/09/22 Plt Count 68 K/uL (130-400) L 12/09/22 Neutrophils (%) (Auto) 62.8 % 12/09/22 Lymphocytes (%) (Auto) 15.3 % 12/09/22 Monocytes # (Auto) 0.62 K/uL (0.11-0.59) H 12/09/22 Eosinophils # (Auto) 0.07 K/uL (0-0.50) 12/09/22 Immature Granulocyte % (Auto) 0.3 % 12/09/22 Neutrophils # (Auto) 2.17 K/uL (1.40-6.50) 12/09/22 Lymphocytes # (Auto) 0.53 K/uL (1.2-3.4) L 12/09/22 Monocytes # (Auto) 0.62 K/uL (0.11-0.59) H 12/09/22 Eosinophils # (Auto) 0.07 K/uL (0-0.50) 12/09/22 Basophils # (Auto) 0.06 K/uL (0-0.2) 12/09/22 Immature Granulocyte # (Auto) 0.01 K/uL (0.01-0.20) 3 Giant Platelets 1+ 12/09/22 Polychromasia 1+ 12/09/22 Na 136 mmol/L (136-145) 12/09/22 K 2.7 mmol/L (3.5-5.1) L 12/09/22 Cl 103 mmol/L (98-107) 12/09/22 CO2 24 mmol/L (21-32) 12/09/22 Anion Gap 9 (3-11) 12/09/22 BUN 8 mg/dl (6-23) 12/09/22 Creatinine 0.69 mg/dl (0.6-1.2) 12/09/22 BUN/Creatinine Ratio 11.6 (10-20) 12/09/22 Glucose Level 106 mg/dl (70-99(Fasting)) H 12/09/22 Ca 8.2 mg/dl (8.6-10.3) L 12/09/22 Total Bilirubin 4.1 mg/dl (0.2-1.0) H 12/09/22 AST/SGOT 94 U/L (13-39) H 12/09/22 ALT/SGPT 34 U/L (7-52) 12/09/22 Alkaline Phosphatase 119 U/L (34-104) H 12/09/22 Total Protein 6.9 gm/dl (6.0-8.3) 12/09/22 Albumin 2.8 gm/dl (3.4-5.0) L 12/09/22 Globulin 4.1 gm/dl (2.5-4.0) H 12/09/22 Albumin/Globulin Ratio 0.7 (0.9-2) L 12/09/22 Procalcitonin 0.09 ng/ml (0-0.5) 12/09/22 INR 1.3 (0.9-1.1) H 12/09/22 SARS-CoV-2, RNA, NAAT NEGATIVE (NEGATIVE) 12/09/22 Chest X-Ray 12/09/22 Code Status & VTE Plan Code Status FULL CODE VTE Prophylaxis Plan VTE Prophylaxis will be ordered: Yes Supervising Physician Co-Signing Physician Notes Patient was seen and examined independently at bedside. Chart reviewed. Case discussed with Catia GONGORA and agree with the documentation above. In summary, this is a 56 year old female with history of Hep C and alcoholic cirrhosis of liver, h/o Hep C treated with Harvoni, who presented to the ED with abdominal distension and is getting admitted for decompensated liver cirrhosis with a scites. She was still drinking alcohol until 3 weeks back. She was not taking her aldactone regularly. On exam, she is AAO, lying comfortably in bed, no distress, chest clear, heart sounds normal, abd soft tender in LUQ distended normal BS, no LE edema, neurologically intact. Agree with IR therapeutic and diagnostic paracentesis, empiric antibiotics pending clx results although suspicion for SBP is low at this point, lactulose given no BM for 4 days. 2.1 L ascitic fluid was removed today by IR, ascitic fluid analysis pending. Counseled on quitting alcohol and compliance with her medications. Rest as per the note above.
--- NOTE | 2022-12-09 15:26 | Ultrasound Report ---
Ultrasound-guided paracentesis INDICATION: Ascites PROCEDURE: Procedure and risks were explained. Informed consent was obtained. A final timeout was com pleted. The left lower quadrant was prepped and draped in sterile fashion. 1% buffered lidocaine was utilized for skin anesthesia. Utilizing ultrasound guidance, a 5 [place] safety centesis catheter was advanced into the pocket of anthony terry. Ultrasound images were obtained. 2.1 L of yellow ascites fluid was removed, with 1 L sent to t he lab for analysis. The catheter was then removed and Band-Aid applied. The patient tolerated the pr ocedure well. Vital signs will be monitored prior to discharge. IMPRESSION: Ultrasound-guided paracentesis as detailed above. Performed, dictated, and signed by Berny Bales PA-C; to be co-signed by Dr. Jeremy Jones. Electronically signed by: Jeremy Jones M.D. 12/09/2022 3:46 PM
[2022-12-09] MEDS ORDERED: ONDANSETRON INJ 2 MG/ML 2 ML VIAL IV PRN (17:13)
[2022-12-09] MEDS ORDERED: ALUMINUM/MAGNESIUM SUSP 30 ML UDC PO PRN (17:13)
[2022-12-09] MEDS ORDERED: ALBUTEROL HFA 8 GM INHALER INH PRN (17:13)
[2022-12-09] MEDS ORDERED: MAGNESIUM HYDROXIDE SUSP 30 ML UDC PO PRN (17:13)
[2022-12-09 17:28] LABS: Appearance Peritoneal Fluid Clear; Color Peritoneal Fluid Yellow; Lymphocytes, Fluid 13 %; Mono,Macrophage,Mesothelial 73 %; Neutrophils, Fluid 14 %; RBC Peritoneal Fluid Auto < 2000 /uL; WBC Peritoneal Fluid Auto 242 /ul (0-300)
[2022-12-09] MEDS ORDERED: POTASSIUM CHLORIDE CRTAB 20 MEQ TABCR PO ONE (17:30)
[2022-12-09] MEDS: cefTRIAXone SODIUM 1,000 MG in DEXTROSE 5% AD-VAN 50 ML IV SCH (18:08)
[2022-12-09] MEDS: hydrOXYzine HCl 25 MG TAB PO SCH (20:56)
[2022-12-09] MEDS: LACTULOSE SYRUP 20 GM/30 ML UDC PO SCH (20:56)
[2022-12-09] MEDS: MoRPHine SULFATE 2 MG/ML CARP IV PRN (22:22)
[2022-12-10] MEDS: MoRPHine SULFATE 2 MG/ML CARP IV PRN ×4 (07:21→21:21)
[2022-12-10 07:45] LABS: Hematocrit (blood only) 25.5 % (37.0-47.0); Hemoglobin 8.8 g/dl (12.0-16.0); Mean Corpuscular Hemoglobin 34.2 pg (25.0-34.0); Mean Corpuscular Hgb Conc 34.5 g/dL (32.0-36.0); Mean Corpuscular Volume 99.2 fL (80.0-100.0); Mean Platelet Volume 11.9 fL (9.4-12.4); Platelet Count 67 K/uL (130-400); RDW Coefficient of Variation 18.1 % (11.5-14.5); Red Blood Count 2.57 M/uL (4.20-5.40); White Blood Count 3.09 K/ul (4.8-10.8)
[2022-12-10 08:02] LABS: Albumin Globulin Ratio 0.7 (0.9-2); Albumin Level 2.3 gm/dl (3.4-5.0); BUN Creatinine Ratio 9.9 (10-20); Bilirubin,Total 2.8 mg/dl (0.2-1.0); Calcium 7.5 mg/dl (8.6-10.3); Creatinine Clr Calc Pharmacy 80.7 ml/min; Est GFR (African American) 108.8 ml/min; Est GFR (Non-African American) 93.9 ml/min; Globulin 3.4 gm/dl (2.5-4.0); Potassium 4.2 mmol/L (3.5-5.1); Total Protein 5.7 gm/dl (6.0-8.3)
[2022-12-10 08:05] LABS: INR 1.3 (0.9-1.1); Prothrombin Time 14.4 Seconds (9.0-12.0)
[2022-12-10 08:16] LABS: Basophils # (auto) 0.06 K/uL (0-0.2); Basophils % (auto) 1.9 %; Eosinophils % (auto) 3.2 %; Lymphocytes # (auto) 0.71 K/uL (1.2-3.4); Monocytes # (auto) 0.59 K/uL (0.11-0.59); Monocytes % (auto) 19.1 %; Neutrophils # (auto) 1.63 K/uL (1.40-6.50); Neutrophils % (auto) 52.8 %
[2022-12-10] MEDS ORDERED: SPIRONOLACTONE 25 MG TAB PO SCH (09:00)
[2022-12-10] MEDS: LACTULOSE SYRUP 20 GM/30 ML UDC PO SCH ×2 (09:23→21:21)
[2022-12-10] MEDS: THIAMINE HCL 100 MG TAB PO SCH (09:23)
[2022-12-10] MEDS: POTASSIUM CHLORIDE 10 MEQ TABCR PO SCH (09:23)
[2022-12-10] MEDS: MULTIVITAMIN TAB PO SCH (09:24)
[2022-12-10] MEDS: PANTOprazole 40 MG TAB PO SCH (09:24)
[2022-12-10] MEDS: UMECLIDINIUM/VILANTEROL 62.5/25MCG 7 PUFFS/INHALER INH SCH (09:27)
--- NOTE | 2022-12-10 09:27 | Gastrointestinal Consultation ---
Date of Consultation December 10, 2022 Assessment & Plan (1) Abdominal pain: 57 year old female with history of HCV (treated w Harvoni, SVR attained), ETOH cirrhosis, w Grade II esophageal varices (BB use contraindicated, due for EGD for banding), portal HTN, ascites (aldactone only, lasix d/c due to hypokalem ia). MELD 13. admitted with abd pain, distention - Ascites - Rule out PVT, please check hepatic duplex - Rule out SBP - S/P 3L para yesterday - No evidence of SBP on preliminary fluid studies - Can continue Aldactone - Does not tolerate Lasix in the outpatient setting - Low NA diet - Needs OP EGD - Remains ETOH free - Tap water enema if no BM today - Can continue Lactulose PO titrated to BMs 1-2 times daily Supervising Physician Co-Signing Physician Notes I saw and evaluated the patient. The patient is known to our service as an outpatient for history of liver disease. The patient is presently maintained as an outpatient on Aldactone therapy alone due to prior problems with hypokalemia. She presented with new onset ascites and notes some improvement of her symptoms with a low volume paracentesis that was performed earlier today. She denies having fevers chills sweats or rigors. Physical examination No obvious distress Abdomen with a fluid wave and moderate ascites No peripheral edema noted Impression patient with a history of cirrhosis resulting in: Complications which include ascites. As the patient has not done well with Aldactone monotherapy I would recommend increasing the Aldactone to 100 mg/day and adding Lasix 20 mg/day. Given the history of hypokalemia I think it would be prudent to obtain a nephrology evaluation to determine if any additional work-up should be considered. I would also suggest that we give the patient a dose of albumin 1.5 g/kg today and 1 g/kg Tuesday. Low sodium diet Aldactone increase to 100 mg daily Lasix 20 mg daily Consider a nephrology evaluation Albumin 1.5 g/kg today and 1 g/kg tuesday History of Present Illness Reason for Consultation: ascites Requesting Physician: Yariel Attending Physician: Apoorva Saldivar, DO History of Present Illness 57 year old female with history of HCV (treated w Harvoni, SVR attained), ETOH cirrhosis, w Grade II esophageal varices, portal HTN, ascites. MELD 11. Ascites and edema controlled w current Spironolactone 25mg daily. Lasix DC'd due to hypokalemia, BB use contraindicated, due for EGD for banding admitted with abd pain, distention. Pt was seen and evaluated. S/P Para yesterday with 3L off. No evidence of SBP and preliminary fluid studies. Notes pain is largely improved but still some upper abd discomfort. No BM in over a week. Tolerating PO. Denies any ETOH. No fever, chills, CP, SOB. Reports compliance with sodium restriction Denies ETOH use or other substance abuse No new medications Diagnosis:HCV/ETOH last ETOH use was September 2022 Decompensations: Varices: grade 2 BB contraindicated per pulmonary, s/p banding Portal HTN: severe BB contraindicated per pulmonary Ascites/Edema: Lasix DC'd for hypokalemia. On Spironolactone 100mg daily + KCl 10meq daily HE: none Screenings: MELD-Na score: 10 at 03/22/2022 12:57 PM Calculated from: Serum Creatinine: 0.7 mg/dL (Using min of 1 mg/dL) at 03/22/2022 12:57 PM Serum Sodium: 142 mmol/L (Using max of 137 mmol/L) at 03/22/2022 12:57 PM Total Bilirubin: 0.8 mg/dL (Using min of 1 mg/dL) at 03/22/2022 12:57 PM INR(ratio): 1.37 at 03/22/2022 12:57 PM Age: 56 years HCC: February Varices: banded in 2021, due for repeat procedure Immunizations: unknown EGD 2021: Grade II esophageal varices. Banded. - Small hiatal hernia. - Portal hypertensive gastropathy. - Normal duodenal bulb and second portion of the duodenum. - No specimens collected. EGD 2020:Grade II esophageal varices with no bleeding and no stigmata of recent bleeding. - Portal hypertensive gastropathy. - Normal examined duodenum. - No specimens collected. CTAP 2022:Cirrhosis and splenomegaly again noted.Cholelithiasis. No gallbladder wall thickening. Small to moderate amount of ascites which has progressed.Thickening within the proximal colon is likely represents portal colopathy. A nonspecific colitis could also a similar appearance.Normal appendix.No evidence for a bowel obstruction. Colonic diverticulosis. No evidence for acute diverticulitis. ABD US 2022: Cirrhosis with small volume ascites. No hepatic mass demonstrated. Continue surveillance. ABD US 2019:Cirrhosis of the liver. No hepatic mass is demonstrated. Small right upper quadrant ascites. EUS 2012:fatty liver, gallbladder wall 4mm, ? Alvarado's esophagus, Grade I esophageal varices EGD/Colonoscopy 2016: Grade I varices, portal HTN; diverticulosis, int hemorrhoids. EGD 2019: showed hiatal hernia, grade 2 varices w/o stigmata of bleeding, severe portal gastropathy MRCP 2019: non diagnostic for biliary obstruction LE duplex 2019:Patent right lower extremity venous system. No evidence of acute deep venous thrombosis of the right lower extremity Obstructive series 2019:Right pleural effusion.Mild patchy bibasilar airspace opacities. This may represent atelectasis or pneumonia. Nonobstructive bowel gas pattern Allergies Allergy/AdvReac Type Severity Reaction Status Date / Time codeine AdvReac Severe upset Verified 12/09/22 11:03 stomach Home Medications Medication Instructions Recorded Confirmed Type albuterol sulfate 90 mcg/actuation 2 puff inhalation Q4 PRN Wheezing 01/08/19 12/09/22 History aerosol inhaler omeprazole 40 mg capsule,delayed 40 mg PO DAILY 10/30/19 12/09/22 History release cyclobenzaprine 5 mg tablet 5 mg PO DAILY PRN MUSCLE SPASMS 03/28/21 12/09/22 History potassium chloride 10 mEq 10 meq PO DAILY PRN as needed 03/28/21 12/09/22 History capsule,extended release umeclidinium 62.5 mcg-vilanterol 1 inh inhalation DAILY 03/28/21 12/09/22 History 25 mcg/actuation powdr for inhalation (Anoro Ellipta) multivitamin 1 tab PO DAILY 12/29/21 12/09/22 History spironolactone 25 mg tablet 25 mg PO DAILY 12/29/21 12/09/22 History thiamine HCl (vitamin B1) 100 mg 100 mg PO DAILY 12/29/21 12/09/22 History tablet ferrous sulfate 325 mg (65 mg 325 mg PO UD 10/10/22 12/09/22 History iron) tablet (iron) hydroxyzine HCl 25 mg tablet 25 mg PO HS 10/10/22 12/09/22 History Patient History Medical History Alcohol abuse Alcoholic cirrhosis Anxiety and depression Ascites Cirrhosis of liver (11/21/12) COPD (chronic obstructive pulmonary disease) Hepatitis C treated with harvoni in [facility] pt is now negative Hypokalemia Portal hypertension Thrombocytopenia Transaminitis Surgical History History of total right hip replacement History of tubal ligation Family History Mother Cervical cancer Social History (Updated 12/09/22 @ 14:31 by Catia Corona PA-C) Smoking Status: Light tobacco smoker Tobacco Type: Cigarettes Cigarettes Per Day: recently quit; Second Hand Exposure: No; Do You Dip or Chew Tobacco: No; Tobacco Cessation Education Requested by Patient: Yes Hx Alcohol Use: No Hx Substance Use: No Preferred Language: Maltese Communication Ability: Effective Button Riveter Required: No Beliefs That Will Affect Care: None marital status: Current Living Situation: Spouse Other Information That Helps Us Care for You: No Feels Safe at Home: Yes Safety Concerns: Feels Safe At This Time Assistive Devices: Oxygen - at Night Review of Systems Review of Systems: All systems reviewed & are unremarkable except as noted in HPI & below Physical Exam Constitutional: WD/WN, vitals as above Respiratory: normal respiratory effort, lungs clear to auscultation Cardiovascular: Rate/Rhythm: regular rate and regular rhythm Gastrointestinal (Abdomen): normal bowel sounds, soft, nontender, no hepatosplenomegaly Skin: + jaundice Results & Data Vital Signs (Past 12 Hours) Vital Signs Temp Pulse Pulse Resp BP Pulse Ox O2 Del Method 12/10/22 08:00 36.8 C 79 18 102/64 92 Room Air 12/10/22 03:14 36.8 C 86 18 100/61 93 Nasal Cannula 12/10/22 00:00 85 12/09/22 22:13 36.7 C 84 18 100/67 95 Room Air O2 Flow Rate 12/10/22 08:00 12/10/22 03:14 2 12/10/22 00:00 12/09/22 22:13 Laboratory Results 04/21/23 04/21/23 04/21/23 Range/Units 07:02 07:02 07:02 WBC 3.09 L (4.8-10.8) K/ul RBC 2.57 L (4.20-5.40) M/uL Hgb 8.8 L (12.0-16.0) g/dl POC Hgb (12.0-16.0) g/dl Hct 25.5 L (37.0-47.0) % POC Hct (37-47) % MCV 99.2 (80.0-100.0) fL MCH 34.2 H (25.0-34.0) pg MCHC 34.5 (32.0-36.0) g/dL RDW Std Deviation 65.0 H (36.4-46.3) fL RDW Coeff of Radha 18.1 H (11.5-14.5) % Plt Count 67 L (130-400) K/uL MPV 11.9 (9.4-12.4) fL Immature Gran % (Auto) 0.0 % Neut % (Auto) 52.8 % Lymph % (Auto) 23.0 % [place] % (Auto) 19.1 % Eos % (Auto) 3.2 % Baso % (Auto) 1.9 % Neut # (Auto) 1.63 (1.40-6.50) K/uL Lymph # (Auto) 0.71 L (1.2-3.4) K/uL [place] # (Auto) 0.59 (0.11-0.59) K/uL Eos # (Auto) 0.10 (0-0.50) K/uL Baso # (Auto) 0.06 (0-0.2) K/uL Immature Gran # (Auto) 0.00 L (0.01-0.20) K/uL Platelet Estimate (Normal) Giant Platelets Polychromasia PT 14.4 H (9.0-12.0) Seconds INR 1.3 H (0.9-1.1) POC Sodium (135-144) mmol/L Sodium 139 (136-145) mmol/L POC Potassium (3.3-5.0) mmol/L Potassium 4.2 D (3.5-5.1) mmol/L POC Chloride (101-112) mmol/L Chloride 111 H (98-107) mmol/L Carbon Dioxide 27 (21-32) mmol/L POC Total CO2 (24-31) mmol/L Anion Gap 1 L (3-11) POC Anion Gap (16-25) mmol/L POC BUN (7-18) mg/dl BUN 7 (6-23) mg/dl Creatinine 0.71 (0.6-1.2) mg/dl POC Creatinine (0.6-1.3) mg/dl Est Cr Clr Drug Dosing 80.7 ml/min Est GFR ( Amer) 108.8 ml/min Est GFR (Non-Af Amer) 93.9 ml/min BUN/Creatinine Ratio 9.9 L (10-20) Glucose 88 (70-99(Fasting)) mg/dl POC Glucose (other) (70-99) mg/dl Lactate (0.4-2.0) mmol/L Calcium 7.5 L (8.6-10.3) mg/dl POC Ioniz Calcium Simon (1.12-1.32) mmol/l Magnesium 2.0 (1.7-2.4) mg/dl Total Bilirubin 2.8 H (0.2-1.0) mg/dl AST 73 H (13-39) U/L ALT 27 (7-52) U/L Alkaline Phosphatase 86 (34-104) U/L Ammonia (18-72) umol/L Troponin I High Sens (0-14) pg/ml Total Protein 5.7 L (6.0-8.3) gm/dl Albumin 2.3 L (3.4-5.0) gm/dl Globulin 3.4 (2.5-4.0) gm/dl Albumin/Globulin Ratio 0.7 L (0.9-2) Lipase (11-82) U/L Procalcitonin (0-0.5) ng/ml Urine Color Urine Appearance (Clear) Urine pH (4.5-7.5) Ur Specific Mcintyre (1.000-1.030) Urine Protein (Negative) Urine Glucose (UA) (Negative) Urine Ketones (Negative) Urine Blood (Negative) Urine Nitrite (Negative) Urine Bilirubin (Negative) Urine Urobilinogen (Negative) Ur Leukocyte Esterase (Negative) Fluid Neutrophils % % Fluid Lymphocytes % % Fluid Meso/Macro/[place] % % Fluid Comment Peritoneal Color Peritoneal Appearance Peritoneal WBC (Auto) (0-300) /ul Peritoneal RBC (Auto) /uL SARS-CoV-2, RNA, NAAT (NEGATIVE) 12/09/22 12/09/22 12/09/22 Range/Units Unknown 11:21 10:35 WBC (4.8-10.8) K/ul RBC (4.20-5.40) M/uL Hgb (12.0-16.0) g/dl POC Hgb (12.0-16.0) g/dl Hct (37.0-47.0) % POC Hct (37-47) % MCV (80.0-100.0) fL MCH (25.0-34.0) pg MCHC (32.0-36.0) g/dL RDW Std Deviation (36.4-46.3) fL RDW Coeff of Radha (11.5-14.5) % Plt Count (130-400) K/uL MPV (9.4-12.4) fL Immature Gran % (Auto) % Neut % (Auto) % Lymph % (Auto) % [place] % (Auto) % Eos % (Auto) % Baso % (Auto) % Neut # (Auto) (1.40-6.50) K/uL Lymph # (Auto) (1.2-3.4) K/uL [place] # (Auto) (0.11-0.59) K/uL Eos # (Auto) (0-0.50) K/uL Baso # (Auto) (0-0.2) K/uL Immature Gran # (Auto) (0.01-0.20) K/uL Platelet Estimate (Normal) Giant Platelets Polychromasia PT (9.0-12.0) Seconds INR (0.9-1.1) POC Sodium (135-144) mmol/L Sodium (136-145) mmol/L POC Potassium (3.3-5.0) mmol/L Potassium (3.5-5.1) mmol/L POC Chloride (101-112) mmol/L Chloride (98-107) mmol/L Carbon Dioxide (21-32) mmol/L POC Total CO2 (24-31) mmol/L Anion Gap (3-11) POC Anion Gap (16-25) mmol/L POC BUN (7-18) mg/dl BUN (6-23) mg/dl Creatinine (0.6-1.2) mg/dl POC Creatinine (0.6-1.3) mg/dl Est Cr Clr Drug Dosing ml/min Est GFR ( Amer) ml/min Est GFR (Non-Af Amer) ml/min BUN/Creatinine Ratio (10-20) Glucose (70-99(Fasting)) mg/dl POC Glucose (other) (70-99) mg/dl Lactate (0.4-2.0) mmol/L Calcium (8.6-10.3) mg/dl POC Ioniz Calcium Simon (1.12-1.32) mmol/l Magnesium (1.7-2.4) mg/dl Total Bilirubin (0.2-1.0) mg/dl AST (13-39) U/L ALT (7-52) U/L Alkaline Phosphatase (34-104) U/L Ammonia 36.0 (18-72) umol/L Troponin I High Sens (0-14) pg/ml Total Protein (6.0-8.3) gm/dl Albumin (3.4-5.0) gm/dl Globulin (2.5-4.0) gm/dl Albumin/Globulin Ratio (0.9-2) Lipase (11-82) U/L Procalcitonin (0-0.5) ng/ml Urine Color Yellow Urine Appearance Clear (Clear) Urine pH 6.0 (4.5-7.5) Ur Specific [place]re 1.004 (1.000-1.030) Urine Protein Negative (Negative) Urine Glucose (UA) Negative (Negative) Urine Ketones Negative (Negative) Urine Blood Negative (Negative) Urine Nitrite Negative (Negative) Urine Bilirubin Negative (Negative) Urine Urobilinogen Negative (Negative) Ur Leukocyte Esterase Negative (Negative) Fluid Neutrophils % 14 % Fluid Lymphocytes % 13 % Fluid Meso/Macro/[place] % 73 % Fluid Comment Peritoneal Color Yellow Peritoneal Appearance Clear Peritoneal WBC (Auto) 242 (0-300) /ul Peritoneal RBC (Auto) < 2000 /uL SARS-CoV-2, RNA, NAAT (NEGATIVE) 12/09/22 12/09/22 12/09/22 Range/Units 10:32 10:05 10:05 WBC (4.8-10.8) K/ul RBC (4.20-5.40) M/uL Hgb (12.0-16.0) g/dl POC Hgb 10.9 L (12.0-16.0) g/dl Hct (37.0-47.0) % POC Hct 32 L (37-47) % MCV (80.0-100.0) fL MCH (25.0-34.0) pg MCHC (32.0-36.0) g/dL RDW Std Deviation (36.4-46.3) fL RDW Coeff of Radha (11.5-14.5) % Plt Count (130-400) K/uL MPV (9.4-12.4) fL Immature Gran % (Auto) % Neut % (Auto) % Lymph % (Auto) % [place] % (Auto) % Eos % (Auto) % Baso % (Auto) % Neut # (Auto) (1.40-6.50) K/uL Lymph # (Auto) (1.2-3.4) K/uL [place] # (Auto) (0.11-0.59) K/uL Eos # (Auto) (0-0.50) K/uL Baso # (Auto) (0-0.2) K/uL Immature Gran # (Auto) (0.01-0.20) K/uL Platelet Estimate (Normal) Giant Platelets Polychromasia PT (9.0-12.0) Seconds INR (0.9-1.1) POC Sodium 139 (135-144) mmol/L Sodium (136-145) mmol/L POC Potassium 2.8 L (3.3-5.0) mmol/L Potassium (3.5-5.1) mmol/L POC Chloride 100 L (101-112) mmol/L Chloride (98-107) mmol/L Carbon Dioxide (21-32) mmol/L POC Total CO2 24 (24-31) mmol/L Anion Gap (3-11) POC Anion Gap 19.0 (16-25) mmol/L POC BUN 5 L (7-18) mg/dl BUN (6-23) mg/dl Creatinine (0.6-1.2) mg/dl POC Creatinine 0.7 (0.6-1.3) mg/dl Est Cr Clr Drug Dosing ml/min Est GFR ( Amer) ml/min Est GFR (Non-Af Amer) ml/min BUN/Creatinine Ratio (10-20) Glucose (70-99(Fasting)) mg/dl POC Glucose (other) 114 H (70-99) mg/dl Lactate (0.4-2.0) mmol/L Calcium (8.6-10.3) mg/dl POC Ioniz Calcium Simon 1.07 L (1.12-1.32) mmol/l Magnesium (1.7-2.4) mg/dl Total Bilirubin (0.2-1.0) mg/dl AST (13-39) U/L ALT (7-52) U/L Alkaline Phosphatase (34-104) U/L Ammonia (18-72) umol/L Troponin I High Sens (0-14) pg/ml Total Protein (6.0-8.3) gm/dl Albumin (3.4-5.0) gm/dl Globulin (2.5-4.0) gm/dl Albumin/Globulin Ratio (0.9-2) Lipase (11-82) U/L Procalcitonin 0.09 (0-0.5) ng/ml Urine Color Urine Appearance (Clear) Urine pH (4.5-7.5) Ur Specific [place] (1.000-1.030) Urine Protein (Negative) Urine Glucose (UA) (Negative) Urine Ketones (Negative) Urine Blood (Negative) Urine Nitrite (Negative) Urine Bilirubin (Negative) Urine Urobilinogen (Negative) Ur Leukocyte Esterase (Negative) Fluid Neutrophils % % Fluid Lymphocytes % % Fluid Meso/Macro/[place] % % Fluid Comment Peritoneal Color Peritoneal Appearance Peritoneal WBC (Auto) (0-300) /ul Peritoneal RBC (Auto) /uL SARS-CoV-2, RNA, NAAT NEGATIVE (NEGATIVE) 12/09/22 12/09/22 12/09/22 Range/Units 10:05 10:05 10:05 WBC (4.8-10.8) K/ul RBC (4.20-5.40) M/uL Hgb (12.0-16.0) g/dl POC Hgb (12.0-16.0) g/dl Hct (37.0-47.0) % POC Hct (37-47) % MCV (80.0-100.0) fL MCH (25.0-34.0) pg MCHC (32.0-36.0) g/dL RDW Std Deviation (36.4-46.3) fL RDW Coeff of Radha (11.5-14.5) % Plt Count (130-400) K/uL MPV (9.4-12.4) fL Immature Gran % (Auto) % Neut % (Auto) % Lymph % (Auto) % [place] % (Auto) % Eos % (Auto) % Baso % (Auto) % Neut # (Auto) (1.40-6.50) K/uL Lymph # (Auto) (1.2-3.4) K/uL [place] # (Auto) (0.11-0.59) K/uL Eos # (Auto) (0-0.50) K/uL Baso # (Auto) (0-0.2) K/uL Immature Gran # (Auto) (0.01-0.20) K/uL Platelet Estimate (Normal) Giant Platelets Polychromasia PT 13.6 H (9.0-12.0) Seconds INR 1.3 H (0.9-1.1) POC Sodium (135-144) mmol/L Sodium 136 (136-145) mmol/L POC Potassium (3.3-5.0) mmol/L Potassium 2.7 L (3.5-5.1) mmol/L POC Chloride (101-112) mmol/L Chloride 103 (98-107) mmol/L Carbon Dioxide 24 (21-32) mmol/L POC Total CO2 (24-31) mmol/L Anion Gap 9 (3-11) POC Anion Gap (16-25) mmol/L POC BUN (7-18) mg/dl BUN 8 (6-23) mg/dl Creatinine 0.69 (0.6-1.2) mg/dl POC Creatinine (0.6-1.3) mg/dl Est Cr Clr Drug Dosing 77.7 ml/min Est GFR ( Amer) 112.0 ml/min Est GFR (Non-Af Amer) 96.6 ml/min BUN/Creatinine Ratio 11.6 (10-20) Glucose 106 H (70-99(Fasting)) mg/dl POC Glucose (other) (70-99) mg/dl Lactate 2.3 H* (0.4-2.0) mmol/L Calcium 8.2 L (8.6-10.3) mg/dl POC Ioniz Calcium Simon (1.12-1.32) mmol/l Magnesium (1.7-2.4) mg/dl Total Bilirubin 4.1 H (0.2-1.0) mg/dl AST 94 H (13-39) U/L ALT 34 (7-52) U/L Alkaline Phosphatase 119 H (34-104) U/L Ammonia (18-72) umol/L Troponin I High Sens 6.0 (0-14) pg/ml Total Protein 6.9 (6.0-8.3) gm/dl Albumin 2.8 L (3.4-5.0) gm/dl Globulin 4.1 H (2.5-4.0) gm/dl Albumin/Globulin Ratio 0.7 L (0.9-2) Lipase 121 H (11-82) U/L Procalcitonin (0-0.5) ng/ml Urine Color Urine Appearance (Clear) Urine pH (4.5-7.5) Ur Specific [place] (1.000-1.030) Urine Protein (Negative) Urine Glucose (UA) (Negative) Urine Ketones (Negative) Urine Blood (Negative) Urine Nitrite (Negative) Urine Bilirubin (Negative) Urine Urobilinogen (Negative) Ur Leukocyte Esterase (Negative) Fluid Neutrophils % % Fluid Lymphocytes % % Fluid Meso/Macro/[place] % % Fluid Comment Peritoneal Color Peritoneal Appearance Peritoneal WBC (Auto) (0-300) /ul Peritoneal RBC (Auto) /uL SARS-CoV-2, RNA, NAAT (NEGATIVE) 12/09/22 Range/Units 10:05 WBC 3.46 L (4.8-10.8) K/ul RBC 2.90 L (4.20-5.40) M/uL Hgb 9.9 L (12.0-16.0) g/dl POC Hgb (12.0-16.0) g/dl Hct 28.8 L (37.0-47.0) % POC Hct (37-47) % MCV 99.3 (80.0-100.0) fL MCH 34.1 H (25.0-34.0) pg MCHC 34.4 (32.0-36.0) g/dL RDW Std Deviation 65.6 H (36.4-46.3) fL RDW Coeff of Radha 18.2 H (11.5-14.5) % Plt Count 68 L (130-400) K/uL MPV 12.8 H (9.4-12.4) fL Immature Gran % (Auto) 0.3 % Neut % (Auto) 62.8 % Lymph % (Auto) 15.3 % [place] % (Auto) 17.9 % Eos % (Auto) 2.0 % Baso % (Auto) 1.7 % Neut # (Auto) 2.17 (1.40-6.50) K/uL Lymph # (Auto) 0.53 L (1.2-3.4) K/uL [place] # (Auto) 0.62 H (0.11-0.59) K/uL Eos # (Auto) 0.07 (0-0.50) K/uL Baso # (Auto) 0.06 (0-0.2) K/uL Immature Gran # (Auto) 0.01 (0.01-0.20) K/uL Platelet Estimate Decreased L (Normal) Giant Platelets 1+ Polychromasia 1+ PT (9.0-12.0) Seconds INR (0.9-1.1) POC Sodium (135-144) mmol/L Sodium (136-145) mmol/L POC Potassium (3.3-5.0) mmol/L Potassium (3.5-5.1) mmol/L POC Chloride (101-112) mmol/L Chloride (98-107) mmol/L Carbon Dioxide (21-32) mmol/L POC Total CO2 (24-31) mmol/L Anion Gap (3-11) POC Anion Gap (16-25) mmol/L POC BUN (7-18) mg/dl BUN (6-23) mg/dl Creatinine (0.6-1.2) mg/dl POC Creatinine (0.6-1.3) mg/dl Est Cr Clr Drug Dosing ml/min Est GFR ( Amer) ml/min Est GFR (Non-Af Amer) ml/min BUN/Creatinine Ratio (10-20) Glucose (70-99(Fasting)) mg/dl POC Glucose (other) (70-99) mg/dl Lactate (0.4-2.0) mmol/L Calcium (8.6-10.3) mg/dl POC Ioniz Calcium Simon (1.12-1.32) mmol/l Magnesium (1.7-2.4) mg/dl Total Bilirubin (0.2-1.0) mg/dl AST (13-39) U/L ALT (7-52) U/L Alkaline Phosphatase (34-104) U/L Ammonia (18-72) umol/L Troponin I High Sens (0-14) pg/ml Total Protein (6.0-8.3) gm/dl Albumin (3.4-5.0) gm/dl Globulin (2.5-4.0) gm/dl Albumin/Globulin Ratio (0.9-2) Lipase (11-82) U/L Procalcitonin (0-0.5) ng/ml Urine Color Urine Appearance (Clear) Urine pH (4.5-7.5) Ur Specific [place] (1.000-1.030) Urine Protein (Negative) Urine Glucose (UA) (Negative) Urine Ketones (Negative) Urine Blood (Negative) Urine Nitrite (Negative) Urine Bilirubin (Negative) Urine Urobilinogen (Negative) Ur Leukocyte Esterase (Negative) Fluid Neutrophils % % Fluid Lymphocytes % % Fluid Meso/Macro/[place] % % Fluid Comment Peritoneal Color Peritoneal Appearance Peritoneal WBC (Auto) (0-300) /ul Peritoneal RBC (Auto) /uL SARS-CoV-2, RNA, NAAT (NEGATIVE) (1) Abdominal pain Abdominal location: upper abdomen, unspecified Qualified Code(s): R10.10 - Upper abdominal pain, unspecified
[2022-12-10] MEDS: ALBUMIN 25% 100 mL 25 GM/100 ML VIAL IV SCH ×2 (15:01→16:56)
--- NOTE | 2022-12-10 17:02 | Hospitalist Progress Note ---
Date of Service December 10, 2022 Assessment & Plan (1) Ascites: (2) Alcoholic cirrhosis: (3) Abdominal pain: (4) Transaminitis: (5) Pancytopenia: Plan This is a 56-year-old female who has significant past medical history of alcoholic cirrhosis, hepatitis C antibody positive, protein calorie malnutrition, history of alcohol abuse, history of tobacco abuse, depression, pancytopenia, COPD and nocturnal hypoxemia who presents to ED secondary to abdominal pain x4 days. Abdominal pain alcoholic cirrhosis Ascites Transaminitis Constipation History of hep C treated with Brenda Obtain diagnostic and therapeutic paracentesis, send for culture, cell count and cytology albumin given post procedure no signs of SBP at this time Stop ceftriaxone Lactulose 20 g twice daily to promote bowel movement, can discontinue when patient moves bowels No signs of hepatic encephalopathy Continue Aldactone for now at increased dose of 100mg Start Lasix 20mg PO daily Minimize narcotics use. Hypokalemia replaced. K 4.2 today Pancytopenia In setting of cirrhosis No signs or symptoms of bleeding History of tobacco and alcohol use Currently remains abstinent DVT prophylaxis: SCDs Dispo: cont hosp PCP: Howard Full code Apoorva Saldivar DO Admission and Anticipated Discharge Date Admission Date: December 09, 2022 Subjective 57 yo F presents with abdominal pain since Tuesday she is doing better today although still has intermittent sharrp stabbing pains throughout her abdomen She feels better since having a BM she reports never using lactulose in the past she is afebrile Review of Systems Review of Systems: All systems were reviewed and negative except as indicated on subjective above. Physical Exam Physical Exam: CONSTITUTIONAL: WNWD, vitals as above, generally well-appearing, NAD EYES: normal conjunctivae, no scleral icterus ENT: external ear and nose normal, MMM NECK: trachea midline RESPIRATORY: clear to auscultation bilaterally, no crackles, rales or wheezes, normal respiratory effort CARDIOVASCULAR: regular rate and rhythm, S1 and 2 heard without murmurs, gallops or rubs, no JVD, no peripheral edema CHEST: inspection of chest was normal (+pacemaker, +port) GASTROINTESTINAL: soft, some firmness too her abdomen nontender, no hepatomegaly, no guarding MUSCULOSKELETAL: strength 5/5 throughout, head is normocephalic and atraumatic, neck supple, normal palpation of chest wall without tenderness SKIN: warm and dry, no rashes NEUROLOGIC: CN 2-12 grossly intact, no sensory deficit, normal cognition, normal speech, no tremor PSYCHIATRIC: alert cooperative and oriented to person, place and time. Euthymic mood, makes good eye contact, language grossly intact, recent and remote memory grossly intact. Results & Data Results & Data Vital Signs (Past 12 Hours) Vital Signs Temp Pulse Pulse Resp BP Pulse Ox O2 Del Method 12/10/22 15:58 36.8 C 85 18 110/65 92 Room Air 12/10/22 07:15 75 12/10/22 12:02 109/64 12/10/22 11:43 37.0 C 74 20 95/61 L 92 Room Air 12/10/22 08:00 36.8 C 79 18 102/64 92 Room Air Laboratory Results Short CBC 12/10/22 Range/Units 07:02 WBC 3.09 L (4.8-10.8) K/ul Hgb 8.8 L (12.0-16.0) g/dl Hct 25.5 L (37.0-47.0) % Plt Count 67 L (130-400) K/uL BMP 12/10/22 07:02 Sodium 139 Potassium 4.2 D Chloride 111 H Carbon Dioxide 27 BUN 7 Creatinine 0.71 Glucose 88 Calcium 7.5 L Liver Function 12/10/22 Range/Units 07:02 Total Bilirubin 2.8 H (0.2-1.0) mg/dl AST 73 H (13-39) U/L ALT 27 (7-52) U/L Alkaline Phosphatase 86 (34-104) U/L Albumin 2.3 L (3.4-5.0) gm/dl Medications Administered Current Inpatient Medications Acetaminophen (Acetaminophen 500 Mg Tab) 500 mg PO Q4H PRN PRN Reason: pain Stop: 01/09/23 12:19 Al Hydrox/Mg Hydrox/Simethicone (Aluminum/Magnesium Susp 30 Ml Udc) 15 ml PO Q4H PRN PRN Reason: Dyspepsia Stop: 01/08/23 17:12 Albuterol (Albuterol Hfa 8 Gm Inhaler) 2 puffs INH Q4R PRN PRN Reason: Wheezing Stop: 01/08/23 17:12 Furosemide (Furosemide 20 Mg Tab) 20 mg PO QAM [facility] Stop: 05/22/23 08:59 Hydroxyzine HCl (Hydroxyzine Hcl 25 Mg Tab) 25 mg PO HS [facility] Stop: 01/08/23 20:59 Last Admin: 12/09/22 20:56 Dose: 25 mg Ceftriaxone Sodium 1,000 mg/ (Dextrose) 50 mls @ 100 mls/hr IV Q24H [facility]; Protocol Stop: 12/19/22 17:29 Last Infusion: 12/09/22 18:32 Dose: Infused Albumin Human (Albumin 25% 100 Ml) 25 gm in 100 mls @ 50 mls/hr IV Q2H [facility] Stop: 12/10/22 18:14 Last Admin: 12/10/22 16:56 Dose: 50 mls/hr Albumin Human (Albumin 25% 100 Ml) 25 gm in 100 mls @ 50 mls/hr IV Q2H [facility] Stop: 12/12/22 18:29 Lactulose (Lactulose Syrup 20 Gm/30 Ml Udc) 20 gm PO BID [facility] Stop: 01/08/23 20:59 Last Admin: 12/10/22 09:23 Dose: 20 gm Magnesium Hydroxide (Magnesium Hydroxide Susp 30 Ml Udc) 30 ml PO Q12H PRN PRN Reason: Constipation Stop: 01/08/23 17:12 Last Admin: 12/10/22 11:56 Dose: 30 ml Morphine Sulfate (Morphine Sulfate 2 Mg/Ml Carp) 2 mg IV Q4H PRN PRN Reason: Pain Stop: 12/23/22 21:11 Last Admin: 12/10/22 11:56 Dose: 2 mg Multivitamins (Multivitamin Tab) 1 tab PO DAILY [facility] Stop: 01/09/23 08:59 Last Admin: 12/10/22 09:24 Dose: 1 tab Ondansetron HCl (Ondansetron Inj 2 Mg/Ml 2 Ml Vial) 4 mg IV Q6H PRN PRN Reason: Nausea Stop: 01/08/23 17:12 Pantoprazole Sodium (Pantoprazole 40 Mg Tab) 40 mg PO DAILY [facility] Stop: 01/09/23 08:59 Last Admin: 12/10/22 09:24 Dose: 40 mg Polyethylene Glycol (Polyethylene (Miralax) 17 Gm Pack) 17 gm PO DAILY PRN PRN Reason: Constipation Stop: 01/08/23 17:12 Potassium Chloride (Potassium Chloride 10 Meq Tabcr) 10 meq PO DAILY [facility] Stop: 01/09/23 08:59 Last Admin: 12/10/22 09:23 Dose: 10 meq Spironolactone (Spironolactone 100 Mg Tab) 100 mg PO QAM [facility] Stop: 01/10/23 08:59 Thiamine HCl (Thiamine Hcl 100 Mg Tab) 100 mg PO DAILY [facility] Stop: 01/09/23 08:59 Last Admin: 12/10/22 09:23 Dose: 100 mg Umeclidinium/Vilanterol (Umeclidinium/Vilanterol 62.5/25mcg 7 Puffs/Inhaler) 1 puffs INH DAILY [facility] Stop: 01/09/23 08:59 Last Admin: 12/10/22 09:27 Dose: 1 puffs (2) Alcoholic cirrhosis Ascites presence: with ascites Qualified Code(s): K70.31 - Alcoholic cirrhosis of liver with ascites
[2022-12-10] MEDS: POLYETHYLENE (MIRALAX) 17 GM PACK PO PRN (17:19)
[2022-12-10] MEDS: cefTRIAXone SODIUM 1,000 MG in DEXTROSE 5% AD-VAN 50 ML IV SCH (17:20)
--- NOTE | 2022-12-10 17:50 | Electrocardiogram Report ---
Test Reason : Blood Pressure : / mmHG Vent. Rate : 064 BPM Atrial Rate : 064 BPM P-R Int : 118 ms QRS Dur : 098 ms QT Int : 476 ms P-R-T Axes : 046 009 043 degrees QTc Int : 491 ms Poor data quality, interpretation may be adversely affected Normal sinus rhythm Low voltage QRS Borderline ECG When compared with ECG of 10-OCT-2022 01:58, No significant change was found Confirmed by Fish Dailey ([id number]) on 12/10/2022 5:50:36 PM Referred By: REFERRED SELF Confirmed By:Serge Dailey
[2022-12-10] MEDS: ACETAMINOPHEN 500 MG TAB PO PRN (19:44)
[2022-12-10] MEDS: hydrOXYzine HCl 25 MG TAB PO SCH (21:21)
[2022-12-11] MEDS: MoRPHine SULFATE 2 MG/ML CARP IV PRN ×4 (01:36→20:21)
[2022-12-11] MEDS: MULTIVITAMIN TAB PO SCH (07:55)
[2022-12-11] MEDS: PANTOprazole 40 MG TAB PO SCH (07:56)
[2022-12-11] MEDS: FUROSEMIDE 20 MG TAB PO SCH (07:56)
[2022-12-11] MEDS: THIAMINE HCL 100 MG TAB PO SCH (07:56)
[2022-12-11] MEDS: SPIRONOLACTONE 100 MG TAB PO SCH (07:56)
[2022-12-11] MEDS: UMECLIDINIUM/VILANTEROL 62.5/25MCG 7 PUFFS/INHALER INH SCH (07:57)
[2022-12-11] MEDS: LACTULOSE SYRUP 20 GM/30 ML UDC PO SCH ×2 (07:57→20:20)
[2022-12-11] MEDS: POTASSIUM CHLORIDE 10 MEQ TABCR PO SCH (08:05)
--- NOTE | 2022-12-11 08:48 | Hospitalist Progress Note ---
Date of Service December 11, 2022 Assessment & Plan (1) Ascites: (2) Alcoholic cirrhosis: (3) Abdominal pain: (4) Transaminitis: (5) Pancytopenia: Plan This is a 56-year-old female who has significant past medical history of alcoholic cirrhosis, hepatitis C antibody positive, protein calorie malnutrition, history of alcohol abuse, history of tobacco abuse, depression, pancytopenia, COPD and nocturnal hypoxemia who presents to ED secondary to abdominal pain x4 days. Abdominal pain alcoholic cirrhosis Ascites Transaminitis Constipation History of hep C treated with Brenda Obtain diagnostic and therapeutic paracentesis, send for culture, cell count and cytology albumin given post procedure no signs of SBP at this time Stop ceftriaxone She needs additional albumin tomorrow per guidelines 1mg/kg. Lactulose 20 g twice daily to promote bowel movement, can discontinue when patient moves bowels Consider increasing to TID if milk and molasses enema is ineffective. No signs of hepatic encephalopathy Cont increased aldactone at 100mg daily and new lsix 20mg daily for GDMT Minimize narcotics use-->she has used 4 dose of morphine in the last 24 hours. Alcohol withdrawal/ h/o abuse AWSS scale added and PRN ativan for anxiety states last drink was in October but withdrawal is in the differential for her symptoms. Pancytopenia chronic, In setting of cirrhosis No signs or symptoms of bleeding History of tobacco and alcohol use cessation encouraged. DVT prophylaxis: SCDs Dispo: cont hosp PCP: Howard Full code Apoorva Saldivar , Admission and Anticipated Discharge Date Admission Date: December 09, 2022 Subjective 57 yo F presents with abdominal pain since Tuesday agitated and uncomfortable appears very irritated. Reports she needs more sleep than she is getting. Hasn't had any further BM and reports continued discomfort in her abdomen Abdomen is still distended consistent wtih yesterday's exam No fever, question withdrawal but she states her last drink was "in October" open for another enema. Review of Systems Review of Systems: All systems were reviewed and negative except as indicated on subjective above. Physical Exam Physical Exam: CONSTITUTIONAL: WNWD, vitals as above, generally well-appearing, NAD EYES: normal conjunctivae, no scleral icterus ENT: external ear and nose normal, MMM NECK: trachea midline RESPIRATORY: clear to auscultation bilaterally, no crackles, rales or wheezes, normal respiratory effort CARDIOVASCULAR: regular rate and rhythm, S1 and 2 heard without murmurs, gallops or rubs, no JVD, no peripheral edema CHEST: inspection of chest was normal GASTROINTESTINAL: soft, some firmness too her abdomen, nontender, no guarding MUSCULOSKELETAL: strength 5/5 throughout, head is normocephalic and atraumatic, neck supple, normal palpation of chest wall without tenderness SKIN: warm and dry, no rashes NEUROLOGIC: CN 2-12 grossly intact, no sensory deficit, normal cognition, normal speech, PSYCHIATRIC: alert cooperative and oriented to person, place and time. irritated, anxious appearing. Jumpy Results & Data Results & Data Vital Signs (Past 12 Hours) Vital Signs Temp Pulse Pulse Resp BP Pulse Ox O2 Del Method 12/11/22 07:15 90 12/11/22 07:34 36.7 C 69 20 102/64 94 Nasal Cannula 12/11/22 04:00 37.0 C 77 20 92/52 L 92 Nasal Cannula 12/10/22 22:00 74 12/10/22 21:00 Nasal Cannula 12/10/22 23:00 36.7 C 74 18 93/58 L 92 Room Air O2 Flow Rate 12/11/22 07:15 12/11/22 07:34 2 12/11/22 04:00 2 12/10/22 22:00 12/10/22 21:00 2 12/10/22 23:00 Laboratory Results Short CBC 12/11/22 Range/Units 09:21 WBC 3.67 L (4.8-10.8) K/ul Hgb 9.0 L (12.0-16.0) g/dl Hct 26.2 L (37.0-47.0) % Plt Count 75 L (130-400) K/uL BMP 12/11/22 09:21 Sodium 135 L Potassium 4.1 Chloride 107 Carbon Dioxide 23 BUN 6 Creatinine 0.67 Glucose 99 Calcium 8.1 L Liver Function 12/11/22 Range/Units 09:21 Total Bilirubin 3.3 H (0.2-1.0) mg/dl AST 70 H (13-39) U/L ALT 25 (7-52) U/L Alkaline Phosphatase 77 (34-104) U/L Albumin 3.0 L (3.4-5.0) gm/dl Medications Administered Current Inpatient Medications Acetaminophen (Acetaminophen 500 Mg Tab) 500 mg PO Q4H PRN PRN Reason: pain Stop: 01/09/23 12:19 Last Admin: 12/10/22 19:44 Dose: 500 mg Al Hydrox/Mg Hydrox/Simethicone (Aluminum/Magnesium Susp 30 Ml Udc) 15 ml PO Q4H PRN PRN Reason: Dyspepsia Stop: 01/08/23 17:12 Albuterol (Albuterol Hfa 8 Gm Inhaler) 2 puffs INH Q4R PRN PRN Reason: Wheezing Stop: 01/08/23 17:12 Furosemide (Furosemide 20 Mg Tab) 20 mg PO QAM [facility] Stop: 01/10/23 08:59 Last Admin: 12/11/22 07:56 Dose: 20 mg Hydroxyzine HCl (Hydroxyzine Hcl 25 Mg Tab) 25 mg PO HS [facility] Stop: 01/08/23 20:59 Last Admin: 12/10/22 21:21 Dose: 25 mg Albumin Human (Albumin 25% 100 Ml) 25 gm in 100 mls @ 50 mls/hr IV Q2H [facility] Stop: 12/12/22 18:29 Lactulose (Lactulose Syrup 20 Gm/30 Ml Udc) 20 gm PO BID [facility] Stop: 01/08/23 20:59 Last Admin: 12/11/22 07:57 Dose: 20 gm Morphine Sulfate (Morphine Sulfate 2 Mg/Ml Carp) 2 mg IV Q4H PRN PRN Reason: Pain Stop: 12/23/22 21:11 Last Admin: 12/11/22 07:04 Dose: 2 mg Multivitamins (Multivitamin Tab) 1 tab PO DAILY [facility] Stop: 01/09/23 08:59 Last Admin: 12/11/22 07:55 Dose: 1 tab Ondansetron HCl (Ondansetron Inj 2 Mg/Ml 2 Ml Vial) 4 mg IV Q6H PRN PRN Reason: Nausea Stop: 01/08/23 17:12 Pantoprazole Sodium (Pantoprazole 40 Mg Tab) 40 mg PO DAILY [facility] Stop: 01/09/23 08:59 Last Admin: 12/11/22 07:56 Dose: 40 mg Polyethylene Glycol (Polyethylene (Miralax) 17 Gm Pack) 17 gm PO DAILY PRN PRN Reason: Constipation Stop: 01/08/23 17:12 Last Admin: 12/10/22 17:19 Dose: 17 gm Spironolactone (Spironolactone 100 Mg Tab) 100 mg PO QAM [facility] Stop: 01/10/23 08:59 Last Admin: 12/11/22 07:56 Dose: 100 mg Thiamine HCl (Thiamine Hcl 100 Mg Tab) 100 mg PO DAILY [facility] Stop: 01/09/23 08:59 Last Admin: 12/11/22 07:56 Dose: 100 mg Umeclidinium/Vilanterol (Umeclidinium/Vilanterol 62.5/25mcg 7 Puffs/Inhaler) 1 puffs INH DAILY [facility] Stop: 01/09/23 08:59 Last Admin: 12/11/22 07:57 Dose: 1 puffs (2) Alcoholic cirrhosis Ascites presence: with ascites Qualified Code(s): K70.31 - Alcoholic cirrhosis of liver with ascites
[2022-12-11] MEDS ORDERED: FUROSEMIDE 20 MG TAB PO SCH (09:00)
[2022-12-11 10:05] LABS: Albumin Globulin Ratio 0.9 (0.9-2); Bilirubin,Total 3.3 mg/dl (0.2-1.0); Calcium 8.1 mg/dl (8.6-10.3); Est GFR (African American) 112.3 ml/min; Est GFR (Non-African American) 96.9 ml/min; Globulin 3.4 gm/dl (2.5-4.0); Potassium 4.1 mmol/L (3.5-5.1); Total Protein 6.4 gm/dl (6.0-8.3)
[2022-12-11 10:31] LABS: Hematocrit (blood only) 26.2 % (37.0-47.0); Mean Corpuscular Hemoglobin 33.7 pg (25.0-34.0); Mean Corpuscular Hgb Conc 34.4 g/dL (32.0-36.0); Mean Corpuscular Volume 98.1 fL (80.0-100.0); Mean Platelet Volume 11.9 fL (9.4-12.4); Platelet Count 75 K/uL (130-400); RDW Coefficient of Variation 17.9 % (11.5-14.5); RDW Standard Deviation 64.7 fL (36.4-46.3); Red Blood Count 2.67 M/uL (4.20-5.40); White Blood Count 3.67 K/ul (4.8-10.8)
[2022-12-11] MEDS ORDERED: LORazepam 2 MG/1 ML VIAL IV STA (15:40)
[2022-12-11] MEDS: hydrOXYzine HCl 25 MG TAB PO SCH (20:21)
[2022-12-11] MEDS: LORazepam 2 MG/1 ML VIAL IV PRN (23:52)
[2022-12-12] MEDS: MoRPHine SULFATE 2 MG/ML CARP IV PRN ×4 (04:22→21:20)
[2022-12-12] MEDS: LACTULOSE SYRUP 20 GM/30 ML UDC PO SCH ×3 (09:16→21:18)
[2022-12-12] MEDS: PANTOprazole 40 MG TAB PO SCH ×2 (09:16→09:30)
[2022-12-12] MEDS: MULTIVITAMIN TAB PO SCH ×2 (09:17→09:30)
[2022-12-12] MEDS: UMECLIDINIUM/VILANTEROL 62.5/25MCG 7 PUFFS/INHALER INH SCH ×2 (09:17→09:30)
[2022-12-12] MEDS: THIAMINE HCL 100 MG TAB PO SCH ×2 (09:17→09:30)
[2022-12-12] MEDS: SPIRONOLACTONE 100 MG TAB PO SCH (09:58)
[2022-12-12] MEDS: FUROSEMIDE 20 MG TAB PO SCH (09:58)
[2022-12-12] MEDS: LORazepam 2 MG/1 ML VIAL IV PRN ×2 (10:14→19:44)
--- NOTE | 2022-12-12 12:58 | XRay Report ---
KUB HISTORY: Acute generalized abdominal pain with reported obstruction R/O obstruction COMPARISON: CT 12/09/2022 FINDINGS: There is persistent large and small bowel distention. Small bowel loops measure up to 3.2 c m. Large bowel loops measure up to 6 cm. No renal calculi. No ureteral calculi. No pneumoperitoneum o r pneumatosis. A cannulated screw projects over the right femoral acetabular joint. Degenerative neil ges of the spine and hips. No fracture. IMPRESSION: Mild large and small bowel distention suggestive of ileus. Follow-up recommended. ACT 112: Negative or not required by law. The above report was generated using voice recognition software. It may contain grammatical, syntax o r spelling errors. Electronically signed by: Jonn Plaza M.D. 12/12/2022 12:55 PM
[2022-12-12] MEDS: ALBUMIN 25% 100 mL 25 GM/100 ML VIAL IV SCH ×2 (13:54→16:06)
--- NOTE | 2022-12-12 14:45 | Hospitalist Progress Note ---
Date of Service December 12, 2022 Assessment & Plan (1) Ascites: (2) Alcoholic cirrhosis: (3) Abdominal pain: (4) Transaminitis: (5) Pancytopenia: Plan This is a 56-year-old female who has significant past medical history of alcoholic cirrhosis, hepatitis C antibody positive, protein calorie malnutrition, history of alcohol abuse, history of tobacco abuse, depression, pancytopenia, COPD and nocturnal hypoxemia who presents to ED secondary to abdominal pain x4 days. Abdominal pain alcoholic cirrhosis Ascites Transaminitis Constipation History of hep C treated with Brenda Obtain diagnostic and therapeutic paracentesis, send for culture, cell count and cytology albumin given post procedure no signs of SBP at this time ,Stop ceftriaxone She needs additional albumin tomorrow per guidelines 1mg/kg. Lactulose 20 g twice daily to promote bowel movement, can discontinue when patient moves bowels Consider increasing to TID if milk and molasses enema is ineffective. No signs of hepatic encephalopathy Cont increased Aldactone at 100mg daily and new Lasix 20mg daily for GDMT Minimize narcotics use-->she has used 4 dose of morphine in the last 24 hours. Continues to have distention of the abdomen with increasing pain KUB did show persistence of small bowel obstruction/ileus May need NG tube insertion if the condition gets worse Alcohol withdrawal/ h/o abuse AWSS scale added and PRN ativan for anxiety states last drink was in October but withdrawal is in the differential for her symptoms. Will give Ativan as per the protocol Pancytopenia chronic, In setting of cirrhosis No signs or symptoms of bleeding History of tobacco and alcohol use cessation encouraged. DVT prophylaxis: SCDs Dispo: cont hosp PCP: Howard Full code Admission and Anticipated Discharge Date Admission Date: December 09, 2022 Subjective 12/12/2022 The patient was seen and examined in medical telemetry unit She complains to have abdominal distention with increasing pain without nausea and or vomiting No fever and or chills Review of Systems Review of Systems: All systems reviewed and are unremarkable except as noted below Physical Exam Physical Exam: Lying in bed with acute distress due to abdominal discomfort Constitutional: well developed, well nourished, + ill appearing and average body habitus Eyes: PERRL, conjunctivae normal, anicteric sclerae ENMT: external ear and nose normal, oropharynx normal Neck: trachea midline, no thyromegaly Respiratory: no respiratory distress Auscultation: + diminished lung sounds; no crackles Cardiovascular: Rate/Rhythm: regular rate and regular rhythm; not tachycardic Heart Sounds: normal S1 and normal S2; no murmur Extremities: + edema (Trace edema bilaterally) Gastrointestinal (Abdomen): Inspection/Auscultation: + abdomen distended; + abnormal bowel sounds (Decreased) Percussion/Palpation: + abdomen tender, + guarding, abdomen soft and + tympanic to percussion Musculoskeletal: No acute arthritis involving any joint Neurologic: normal touch/pain/proprioception and moves all extremities; no focal motor deficits Psychiatric: A+Ox3, euthymic affect Lymphatic: no cervical or axillary lymphadenopathy Results & Data Results & Data Vital Signs (Past 12 Hours) Vital Signs Temp Pulse Pulse Resp BP Pulse Ox O2 Del Method 12/12/22 09:30 82 127/61 12/12/22 08:02 36.9 C 88 20 98/52 L 96 Nasal Cannula 12/12/22 04:00 36.9 C 92 H 20 100/62 93 Nasal Cannula O2 Flow Rate 12/12/22 09:30 12/12/22 08:02 3 12/12/22 04:00 2 Medications Administered Current Inpatient Medications Acetaminophen (Acetaminophen 500 Mg Tab) 500 mg PO Q4H PRN PRN Reason: pain Stop: 01/09/23 12:19 Last Admin: 12/10/22 19:44 Dose: 500 mg Al Hydrox/Mg Hydrox/Simethicone (Aluminum/Magnesium Susp 30 Ml Udc) 15 ml PO Q4H PRN PRN Reason: Dyspepsia Stop: 01/08/23 17:12 Albuterol (Albuterol Hfa 8 Gm Inhaler) 2 puffs INH Q4R PRN PRN Reason: Wheezing Stop: 01/08/23 17:12 Furosemide (Furosemide 20 Mg Tab) 20 mg PO QAM [facility] Stop: 01/10/23 08:59 Last Admin: 12/12/22 09:58 Dose: 20 mg Hydroxyzine HCl (Hydroxyzine Hcl 25 Mg Tab) 25 mg PO HS [facility] Stop: 01/08/23 20:59 Last Admin: 12/11/22 20:21 Dose: 25 mg Albumin Human (Albumin 25% 100 Ml) 25 gm in 100 mls @ 50 mls/hr IV Q2H [facility] Stop: 12/12/22 18:29 Last Admin: 12/12/22 13:54 Dose: 50 mls/hr Lactulose (Lactulose Syrup 20 Gm/30 Ml Udc) 20 gm PO BID [facility] Stop: 01/08/23 20:59 Last Admin: 12/12/22 09:30 Dose: 20 gm Lorazepam (Lorazepam 2 Mg/1 Ml Vial) 0.5 mg IV Q8H PRN PRN Reason: Anxiety/Agitation Stop: 01/10/23 15:39 Last Admin: 12/12/22 10:14 Dose: 0.5 mg Morphine Sulfate (Morphine Sulfate 2 Mg/Ml Carp) 2 mg IV Q4H PRN PRN Reason: Pain Stop: 12/23/22 21:11 Last Admin: 12/12/22 12:19 Dose: 2 mg Multivitamins (Multivitamin Tab) 1 tab PO DAILY [facility] Stop: 01/09/23 08:59 Last Admin: 12/12/22 09:30 Dose: 1 tab Ondansetron HCl (Ondansetron Inj 2 Mg/Ml 2 Ml Vial) 4 mg IV Q6H PRN PRN Reason: Nausea Stop: 01/08/23 17:12 Pantoprazole Sodium (Pantoprazole 40 Mg Tab) 40 mg PO DAILY [facility] Stop: 01/09/23 08:59 Last Admin: 12/12/22 09:30 Dose: 40 mg Polyethylene Glycol (Polyethylene (Miralax) 17 Gm Pack) 17 gm PO DAILY PRN PRN Reason: Constipation Stop: 01/08/23 17:12 Last Admin: 12/10/22 17:19 Dose: 17 gm Spironolactone (Spironolactone 100 Mg Tab) 100 mg PO QAM [facility] Stop: 01/10/23 08:59 Last Admin: 12/12/22 09:58 Dose: 100 mg Thiamine HCl (Thiamine Hcl 100 Mg Tab) 100 mg PO DAILY [facility] Stop: 01/09/23 08:59 Last Admin: 12/12/22 09:30 Dose: 100 mg Umeclidinium/Vilanterol (Umeclidinium/Vilanterol 62.5/25mcg 7 Puffs/Inhaler) 1 puffs INH DAILY [facility] Stop: 01/09/23 08:59 Last Admin: 12/12/22 09:30 Dose: 1 puffs (2) Alcoholic cirrhosis Ascites presence: with ascites Qualified Code(s): K70.31 - Alcoholic cirrhosis of liver with ascites
[2022-12-12] MEDS: hydrOXYzine HCl 25 MG TAB PO SCH (21:17)
[2022-12-13] MEDS: MoRPHine SULFATE 2 MG/ML CARP IV PRN ×3 (01:27→16:09)
[2022-12-13] MEDS: LORazepam 2 MG/1 ML VIAL IV PRN (03:47)
[2022-12-13 07:32] LABS: Basophils # (auto) 0.06 K/uL (0-0.2); Eosinophils # (auto) 0.14 K/uL (0-0.50); Eosinophils % (auto) 2.3 %; Hemoglobin 8.9 g/dl (12.0-16.0); Immature Granulocytes # (auto) 0.02 K/uL (0.01-0.20); Immature Granulocytes % (auto) 0.3 %; Lymphocytes # (auto) 0.72 K/uL (1.2-3.4); Mean Corpuscular Hemoglobin 34.2 pg (25.0-34.0); Mean Corpuscular Hgb Conc 34.2 g/dL (32.0-36.0); Monocytes # (auto) 1.35 K/uL (0.11-0.59); Monocytes % (auto) 22.6 %; Neutrophils # (auto) 3.69 K/uL (1.40-6.50); Neutrophils % (auto) 61.8 %; Platelet Count 75 K/uL (130-400); RDW Coefficient of Variation 16.9 % (11.5-14.5); RDW Standard Deviation 61.7 fL (36.4-46.3); White Blood Count 5.98 K/ul (4.8-10.8)
[2022-12-13 07:50] LABS: Albumin Globulin Ratio 1.1 (0.9-2); Albumin Level 3.4 gm/dl (3.4-5.0); BUN Creatinine Ratio 9.1 (10-20); Bilirubin,Total 3.8 mg/dl (0.2-1.0); Calcium 8.5 mg/dl (8.6-10.3); Creatinine Clr Calc Pharmacy 80.2 ml/min; Est GFR (African American) 112.9 ml/min; Est GFR (Non-African American) 97.4 ml/min; Globulin 3.1 gm/dl (2.5-4.0); Magnesium 1.9 mg/dl (1.7-2.4); Phosphorus 2.7 mg/dl (2.5-4.9); Total Protein 6.5 gm/dl (6.0-8.3)
[2022-12-13] MEDS ORDERED: NURSING DECISION MEDICATION ONE (08:08)
[2022-12-13] MEDS ORDERED: COUGH DROP (SUGAR FREE) LOZ 24 LOZ/1 BOX BUCCAL ONE (08:10)
[2022-12-13] MEDS: PANTOprazole 40 MG TAB PO SCH (08:13)
[2022-12-13] MEDS: UMECLIDINIUM/VILANTEROL 62.5/25MCG 7 PUFFS/INHALER INH SCH (08:13)
[2022-12-13] MEDS: FUROSEMIDE 20 MG TAB PO SCH (08:13)
[2022-12-13] MEDS: THIAMINE HCL 100 MG TAB PO SCH (08:13)
[2022-12-13] MEDS: SPIRONOLACTONE 100 MG TAB PO SCH (08:13)
[2022-12-13] MEDS: LACTULOSE SYRUP 20 GM/30 ML UDC PO SCH (08:13)
[2022-12-13] MEDS: MULTIVITAMIN TAB PO SCH (08:13)
[2022-12-13] MEDS ORDERED: COUGH DROP (SUGAR FREE) LOZ 24 LOZ/1 BOX BUCCAL PRN (08:27)
[2022-12-13] MEDS ORDERED: LORazepam 2 MG/1 ML VIAL IV PRN (10:01)
[2022-12-13] MEDS ORDERED: bisacodyL 10 MG SUPP PR ONE (11:00)
[2022-12-13] MEDS ORDERED: SOD PHOSPHATE/SOD BIPHOSPHATE ENEMA 132 ML BTL PR ONE ×2 (11:00→14:15)
--- NOTE | 2022-12-13 12:06 | Gastroenterology Progress Note ---
Date of Service December 13, 2022 Assessment & Plan (1) Abdominal pain: Plan: 57 year old female with history of HCV (treated w [facility], SVR attained), ETOH cirrhosis, complicated by Grade II esophageal varices (BB use contraindicated, due for EGD for banding), portal HTN, ascites (aldactone only, lasix d/c due to hypokalemia). MELD 13. Admitted with abd pain, distention. S/P paracentesis on 12/09 wo signs of SBP on fluid analysis. Currently abd noted to be distended again, and tender, no BS present. KUB yesterday w findings concerning for ileus. - DC Lactulose - Bisacodyl 10mg WI supp x 1, Fleets enema x 2 - Repeat KUB today - Relistor 12mg subQ x 1 - Avoid narcotics if possible, encourage OOB, ambulation. Keep K >4 to promote GI motility - 2g Na diet, keep current diuretics, monitor renal function and electrolytes closely. Admission and Anticipated Discharge Date Admission Date: December 09, 2022 Supervising Physician Co-Signing Physician Notes attg add: Pt with progressive abd distention and tympany. AXR shows cecal diameter of 10 cm today. She is passing small amts of flatus. On exam her abd omen is distended. tympanic, and non tender. Will try medical therapy today, consider cscopy decompression if no improvement by tomorrow. Subjective Pt c/o abd pain, no nausea, vomiting. Not passing flatus. States last BM was last week. Review of Systems Review of Systems: All systems reviewed & are unremarkable except as noted in HPI & below Physical Exam Constitutional: WD/WN, vitals as above well groomed, cooperative and comfortable Eyes: PERRL, conjunctivae normal, anicteric sclerae ENMT: external ear and nose normal, oropharynx normal Respiratory: normal respiratory effort, lungs clear to auscultation Cardiovascular: RRR, no murmur, no edema Gastrointestinal (Abdomen): Distended, generalized tenderness, BS not present Skin: no rashes, warm and dry no jaundice Neurologic: Motor/Sensory: no asterixis Psychiatric: A+Ox3, euthymic affect Lymphatic: no lymphedema Results & Data Vital Signs (Past 12 Hours) Vital Signs Temp Pulse Resp BP Pulse Ox O2 Del Method O2 Flow Rate 12/13/22 10:37 Nasal Cannula 3 04/24/23 07:14 37.2 C 90 18 108/65 92 Nasal Cannula 2 (1) Abdominal pain Abdominal location: upper abdomen, unspecified Qualified Code(s): R10.10 - Upper abdominal pain, unspecified
--- NOTE | 2022-12-13 12:13 | XRay Report ---
KUB HISTORY: re-eval ileus COMPARISON: KUB 12/12/2022. FINDINGS: Progressive gaseous distention of the large and small bowel with the cecum measuring up to 10 cm in diameter. The distal sigmoid colon and rectum likely decompressed. A single screw again note d within the acetabulum. No renal calculi. No ureteral calculi. Calcifications in the deep pelvis li marvin represent phleboliths. No pneumoperitoneum or pneumatosis. IMPRESSION: Progressive gaseous distention of the large and small bowel. This is nonspecific but favors a progres sive ileus. However, the distal colon appears decompressed. Therefore, a distal large bowel obstructi on is not excluded. Continued follow-up recommended. ACT 112: Negative or not required by law. Electronically signed by: Jeremy Jones M.D. 12/13/2022 12:12 PM
[2022-12-13] MEDS ORDERED: METHYLNALTREXONE BROMIDE 12 MG/0.6 ML VIAL SQ ONE (12:15)
[2022-12-13] MEDS ORDERED: ERYTHROMYCIN 250 MG in SODIUM CHLORIDE 0.9% 250 ML IV ONE (16:30)
--- NOTE | 2022-12-13 16:53 | Hospitalist Progress Note ---
Date of Service December 13, 2022 Assessment & Plan (1) Ascites: (2) Alcoholic cirrhosis: (3) Abdominal pain: (4) Transaminitis: (5) Pancytopenia: Plan This is a 56-year-old female who has significant past medical history of alcoholic cirrhosis, hepatitis C antibody positive, protein calorie malnutrition, history of alcohol abuse, history of tobacco abuse, depression, pancytopenia, COPD and nocturnal hypoxemia who presents to ED secondary to abdominal pain x4 days. Abdominal pain alcoholic cirrhosis Ascites Transaminitis Constipation History of hep C treated with Brenda Obtain diagnostic and therapeutic paracentesis, send for culture, cell count and cytology albumin given post procedure no signs of SBP at this time ,Stop ceftriaxone She needs additional albumin tomorrow per guidelines 1mg/kg. Lactulose 20 g twice daily to promote bowel movement, can discontinue when patient moves bowels Consider increasing to TID if milk and molasses enema is ineffective. No signs of hepatic encephalopathy Cont increased Aldactone at 100mg daily and new Lasix 20mg daily for GDMT Minimize narcotics use-->she has used 4 dose of morphine in the last 24 hours. Continues to have distention of the abdomen with increasing pain KUB did show persistence of small bowel obstruction/ileus May need NG tube insertion if the condition gets worse Clinically better and stable-has been passing gas We will continue current management Alcohol withdrawal/ h/o abuse AWSS scale added and PRN ativan for anxiety states last drink was in October but withdrawal is in the differential for her symptoms. Will give Ativan as per the protocol-has been having tremors likely secondary to alcohol withdrawal Will increase the frequency of Ativan Pancytopenia chronic, In setting of cirrhosis No signs or symptoms of bleeding History of tobacco and alcohol use cessation encouraged. DVT prophylaxis: SCDs Dispo: cont hosp PCP: Howard Full code Admission and Anticipated Discharge Date Admission Date: December 09, 2022 Subjective 12/12/2022 The patient was seen and examined in medical telemetry unit She complains to have abdominal distention with increasing pain without nausea and or vomiting No fever and or chills 12/13/2022 The patient was seen and examined in medical floor She has been very anxious with tremors involving the outstretched hands Her abdomen remains distended but soft and she has been passing gas Review of Systems Review of Systems: All systems reviewed and are unremarkable except as noted below Physical Exam Physical Exam: Lying in bed with acute distress due to abdominal discomfort Constitutional: well developed, well nourished, + ill appearing and average body habitus Eyes: PERRL, conjunctivae normal, anicteric sclerae ENMT: external ear and nose normal, oropharynx normal Neck: trachea midline, no thyromegaly Respiratory: no respiratory distress Auscultation: + diminished lung sounds; no crackles Cardiovascular: Rate/Rhythm: regular rate and regular rhythm; not tachycardic Heart Sounds: normal S1 and normal S2; no murmur Extremities: + edema (Trace edema bilaterally) Gastrointestinal (Abdomen): Inspection/Auscultation: + abdomen distended; + abnormal bowel sounds (Decreased) Percussion/Palpation: + abdomen tender, + guarding, abdomen soft and + tympanic to percussion Neurologic: normal touch/pain/proprioception and moves all extremities; no focal motor deficits Psychiatric: A+Ox3, euthymic affect Lymphatic: no cervical or axillary lymphadenopathy Results & Data Results & Data Vital Signs (Past 12 Hours) Vital Signs Temp Pulse Resp BP Pulse Ox O2 Del Method O2 Flow Rate 12/13/22 16:22 37.0 C 90 18 114/66 92 Nasal Cannula 3 12/13/22 10:37 Nasal Cannula 3 12/13/22 07:14 37.2 C 90 18 108/65 92 Nasal Cannula 2 Laboratory Results Short CBC 12/13/22 Range/Units 06:51 WBC 5.98 (4.8-10.8) K/ul Hgb 8.9 L (12.0-16.0) g/dl Hct 26.0 L (37.0-47.0) % Plt Count 75 L (130-400) K/uL BMP 12/13/22 06:51 Sodium 135 L Potassium 4.0 Chloride 105 Carbon Dioxide 24 BUN 6 Creatinine 0.66 Glucose 82 Calcium 8.5 L Liver Function 12/13/22 Range/Units 06:51 Total Bilirubin 3.8 H (0.2-1.0) mg/dl AST 47 H (13-39) U/L ALT 18 (7-52) U/L Alkaline Phosphatase 61 (34-104) U/L Albumin 3.4 (3.4-5.0) gm/dl Medications Administered Current Inpatient Medications Acetaminophen (Acetaminophen 500 Mg Tab) 500 mg PO Q4H PRN PRN Reason: pain Stop: 01/09/23 12:19 Last Admin: 12/10/22 19:44 Dose: 500 mg Al Hydrox/Mg Hydrox/Simethicone (Aluminum/Magnesium Susp 30 Ml Udc) 15 ml PO Q4H PRN PRN Reason: Dyspepsia Stop: 01/08/23 17:12 Albuterol (Albuterol Hfa 8 Gm Inhaler) 2 puffs INH Q4R PRN PRN Reason: Wheezing Stop: 01/08/23 17:12 Furosemide (Furosemide 20 Mg Tab) 20 mg PO QAM STEPHAN Stop: 01/10/23 08:59 Last Admin: 12/13/22 08:13 Dose: 20 mg Hydroxyzine HCl (Hydroxyzine Hcl 25 Mg Tab) 25 mg PO HS [facility] Stop: 01/08/23 20:59 Last Admin: 12/12/22 21:17 Dose: 25 mg Erythromycin Lactobionate 250 (mg/ Sodium Chloride) 255 mls @ 250 mls/hr IV ONE ONE Stop: 12/13/22 17:31 Last Admin: 12/13/22 16:47 Dose: 250 mls/hr Lorazepam (Lorazepam 2 Mg/1 Ml Vial) 0.5 mg IV Q4H PRN PRN Reason: Anxiety/Agitation Stop: 01/10/23 15:39 Last Admin: 12/13/22 10:15 Dose: 0.5 mg Menthol (Cough Drop (Sugar Free) Keith 24 Keith/1 Box) 1 keith BUCCAL Q1H PRN PRN Reason: THROAT IRRITATION Stop: 01/12/23 08:26 Morphine Sulfate (Morphine Sulfate 2 Mg/Ml Carp) 2 mg IV Q4H PRN PRN Reason: Pain Stop: 12/23/22 21:11 Last Admin: 12/13/22 16:09 Dose: 2 mg Multivitamins (Multivitamin Tab) 1 tab PO DAILY [facility] Stop: 01/09/23 08:59 Last Admin: 12/13/22 08:13 Dose: 1 tab Ondansetron HCl (Ondansetron Inj 2 Mg/Ml 2 Ml Vial) 4 mg IV Q6H PRN PRN Reason: Nausea Stop: 01/08/23 17:12 Last Admin: 12/13/22 07:22 Dose: 4 mg Pantoprazole Sodium (Pantoprazole 40 Mg Tab) 40 mg PO DAILY [facility] Stop: 01/09/23 08:59 Last Admin: 12/13/22 08:13 Dose: 40 mg Polyethylene Glycol (Polyethylene (Miralax) 17 Gm Pack) 17 gm PO DAILY PRN PRN Reason: Constipation Stop: 01/08/23 17:12 Last Admin: 12/10/22 17:19 Dose: 17 gm Spironolactone (Spironolactone 100 Mg Tab) 100 mg PO QAM [facility] Stop: 01/10/23 08:59 Last Admin: 12/13/22 08:13 Dose: 100 mg Thiamine HCl (Thiamine Hcl 100 Mg Tab) 100 mg PO DAILY STEPHAN Stop: 01/09/23 08:59 Last Admin: 12/13/22 08:13 Dose: 100 mg Umeclidinium/Vilanterol (Umeclidinium/Vilanterol 62.5/25mcg 7 Puffs/Inhaler) 1 puffs INH DAILY [facility] Stop: 01/09/23 08:59 Last Admin: 12/13/22 08:13 Dose: 1 puffs (2) Alcoholic cirrhosis Ascites presence: with ascites Qualified Code(s): K70.31 - Alcoholic cirrhosis of liver with ascites
[2022-12-13] MEDS: POLYETHYLENE (MIRALAX) 17 GM PACK PO PRN (17:47)
[2022-12-13] MEDS: hydrOXYzine HCl 25 MG TAB PO SCH (20:23)
[2022-12-13] MEDS: ACETAMINOPHEN 500 MG TAB PO PRN (20:25)
[2022-12-14] MEDS ORDERED: ACETAMINOPHEN 1,000 MG/100 ML VIAL IV STA (00:52)
[2022-12-14] MEDS ORDERED: ALBUMIN 25% 100 mL 25 GM/100 ML VIAL IV ONE (00:54)
[2022-12-14] MEDS ORDERED: PROMETHAZINE HCL 12.5 MG in SODIUM CHLORIDE 0.9% 50 ML IV PRN (01:23)
[2022-12-14 07:06] LABS: BUN Creatinine Ratio 9.4 (10-20); Calcium 8.4 mg/dl (8.6-10.3); Creatinine Clr Calc Pharmacy 82.7 ml/min; Est GFR (Non-African American) 98.4 ml/min; Magnesium 1.8 mg/dl (1.7-2.4); Potassium 3.6 mmol/L (3.5-5.1)
--- NOTE | 2022-12-14 09:01 | Anesthesiology Consultation ---
Date of Service December 14, 2022 Assessment & Plan (1) Encounter for pre-operative examination: Chart Review Chart Review: Acceptable Risk for Surgery, Patient NOT seen in Pre Admission Testing and data entry email processor initiated Consults Requested none History Surgery Operation Date: 12/14/22 16:30 Proposed Procedures p Colonoscopy Dr Cortez - Dean Cortez MD Height/Weight Height: 5 ft 4 in Weight: 61.2 kg Allergies Allergy/AdvReac Type Severity Reaction Status Date / Time codeine AdvReac Severe upset Verified 12/14/22 09:02 stomach Medications Home Medications Medication Instructions Recorded Confirmed Last Taken albuterol sulfate 90 mcg/actuation 2 puff inhalation Q4 PRN Wheezing 01/08/19 12/09/22 12/08/22 aerosol inhaler omeprazole 40 mg capsule,delayed 40 mg PO DAILY 10/30/19 12/09/22 12/08/22 release cyclobenzaprine 5 mg tablet 5 mg PO DAILY PRN MUSCLE SPASMS 03/28/21 12/09/22 12/08/22 potassium chloride 10 mEq 10 meq PO DAILY PRN as needed 03/28/21 12/09/22 12/08/22 capsule,extended release umeclidinium 62.5 mcg-vilanterol 1 inh inhalation DAILY 03/28/21 12/09/22 12/08/22 25 mcg/actuation powdr for inhalation (Anoro Ellipta) multivitamin 1 tab PO DAILY 12/29/21 12/09/22 12/08/22 spironolactone 25 mg tablet 25 mg PO DAILY 12/29/21 12/09/22 12/08/22 thiamine HCl (vitamin B1) 100 mg 100 mg PO DAILY 12/29/21 12/09/22 12/08/22 tablet ferrous sulfate 325 mg (65 mg 325 mg PO UD 10/10/22 12/09/22 12/08/22 iron) tablet (iron) hydroxyzine HCl 25 mg tablet 25 mg PO HS 10/10/22 12/09/22 12/08/22 Active Medications Generic Name Dose Route Start Last Admin Trade Name Freq PRN Reason Stop Dose Admin Acetaminophen 500 mg 12/10/22 12:20 12/13/22 20:25 Acetaminophen 500 Mg Tab PO 01/09/23 12:19 500 mg Q4H PRN Administration pain Furosemide 20 mg 12/11/22 09:00 12/13/22 08:13 Furosemide 20 Mg Tab PO 01/10/23 08:59 20 mg QAM STEPHAN Administration Hydroxyzine HCl 25 mg 12/09/22 21:00 12/13/22 20:23 Hydroxyzine Hcl 25 Mg Tab PO 01/08/23 20:59 25 mg HS STEPHAN Administration Lorazepam 0.5 mg 12/13/22 10:01 12/13/22 10:15 Lorazepam 2 Mg/1 Ml Vial IV 01/10/23 15:39 0.5 mg Q4H PRN Administration Anxiety/Agitation Multivitamins 1 tab 12/10/22 09:00 12/13/22 08:13 Multivitamin Tab PO 01/09/23 08:59 1 tab DAILY STEPHAN Administration Pantoprazole Sodium 40 mg 12/10/22 09:00 12/13/22 08:13 Pantoprazole 40 Mg Tab PO 01/09/23 08:59 40 mg DAILY STEPHAN Administration Polyethylene Glycol 17 gm 12/09/22 17:13 12/13/22 17:47 Polyethylene (Miralax) 17 Gm Pack PO 01/08/23 17:12 17 gm DAILY PRN Administration Constipation Spironolactone 100 mg 12/11/22 09:00 12/13/22 08:13 Spironolactone 100 Mg Tab PO 01/10/23 08:59 100 mg QAM STEPHAN Administration Thiamine HCl 100 mg 12/10/22 09:00 12/13/22 08:13 Thiamine Hcl 100 Mg Tab PO 01/09/23 08:59 100 mg DAILY STEPHAN Administration Umeclidinium/Vilanterol 1 puffs 12/10/22 09:00 12/13/22 08:13 Umeclidinium/Vilanterol 62.5/25mcg 7 Puffs/Inhaler INH 01/09/23 08:59 1 puffs DAILY STEPHAN Administration Past Medical History Medical History Alcohol abuse Alcoholic cirrhosis Anxiety and depression Ascites Cirrhosis of liver (11/21/12) COPD (chronic obstructive pulmonary disease) Encounter for pre-operative examination Hepatitis C treated with harvoni in [facility] pt is now negative Hypokalemia Portal hypertension Thrombocytopenia Transaminitis Past Family History Family History Mother Cervical cancer Past Surgical History Surgical History History of total right hip replacement History of tubal ligation Social History Smoking Status: Light tobacco smoker tobacco type: cigarettes Smoking cigarettes per day: recently quit Do You Dip or Chew Tobacco: No Hx Alcohol Use: No Alcohol type: beer and hard liquor alcohol intake frequency: 0-2 drinks per day Hx Substance Use: No substance use type: does not use Last Used Substance: Days (ago) Last Used Substance Other:: last month Physical Exam Vital Signs Last Vital Signs Temp 36.7 C 12/14/22 07:24 Pulse 77 12/14/22 07:24 Resp 18 12/14/22 07:24 BP 108/68 12/14/22 07:24 Pulse Ox 96 12/14/22 07:24 O2 Del Method Nasal Cannula 12/14/22 07:24 O2 Flow Rate 2 12/14/22 07:24 Testing Laboratory Results 12/13/22 06:51 12/14/22 06:09 PT 14.4 Seconds (9.0-12.0) H 12/10/22 07:02 INR 1.3 (0.9-1.1) H 12/10/22 07:02 Urine Color Yellow 12/09/22 10:35 Urine Appearance Clear (Clear) 12/09/22 10:35 Urine pH 6.0 (4.5-7.5) 12/09/22 10:35 Ur Specific [place] 1.004 (1.000-1.030) 12/09/22 10:35 Urine Protein Negative (Negative) 12/09/22 10:35 Urine Glucose (UA) Negative (Negative) 12/09/22 10:35 Urine Ketones Negative (Negative) 12/09/22 10:35 Urine Nitrite Negative (Negative) 12/09/22 10:35 Ur Leukocyte Esterase Negative (Negative) 12/09/22 10:35 12/09/22 Unknown Gram Stain - Final Peritoneal Fluid Aerobic and Anaerobic Culture - Preliminary No growth to date. 12/09/22 10:10 Aerobic Blood Culture - Preliminary Blood No growth in Aerobic bottle after 48 hours. Anaerobic Blood Culture - Preliminary No growth in Anaerobic bottle after 48 hours. 12/09/22 10:10 Aerobic Blood Culture - Preliminary Blood No growth in Aerobic bottle after 48 hours. Anaerobic Blood Culture - Preliminary No growth in Anaerobic bottle after 48 hours. Electrocardiogram Date: 12/09/22 DICTATED BY:Fish Dailey MD Test Reason : Blood Pressure : / mmHG Vent. Rate : 064 BPM Atrial Rate : 064 BPM P-R Int : 118 ms QRS Dur : 098 ms QT Int : 476 ms P-R-T Axes : 046 009 043 degrees QTc Int : 491 ms Poor data quality, interpretation may be adversely affected Normal sinus rhythm Low voltage QRS Borderline ECG When compared with ECG of 10-OCT-2022 01:58, No significant change was found Confirmed by Fish Dailey ([id number]) on 12/10/2022 5:50:36 PM Chest X-Ray Date: 12/09/22 SINGLE VIEW CHEST CLINICAL HISTORY: Abdominal swelling FINDINGS: An AP, portable, upright chest radiograph is compared to study dated 10/10/2022. The cardiomediastinal silhouette is unremarkable. There is bibasilar scarring/atelectasis. The lungs and pleural spaces are otherwise clear. No pneumothorax is seen. The skeletal structures appear osteopenic. There are chronic/healed right-sided rib fractures. IMPRESSION: No acute cardiopulmonary abnormality.
--- NOTE | 2022-12-14 09:12 | History & Physical Report ---
Date of Service December 14, 2022 Assessment & Plan Admission and Anticipated Discharge Date Admission Date: December 09, 2022 History of Present Illness Primary Care Provider: Sumi Dailey, DO Colon decompression CV: RRR Resp: CTA Abd: distended tympanic, slightly softer than yesterday A/p: Plan for cscopy for decompression today Allergies Allergy/AdvReac Type Severity Reaction Status Date / Time codeine AdvReac Severe upset Verified 12/14/22 09:02 stomach Home Medications Medication Instructions Recorded Confirmed Type albuterol sulfate 90 mcg/actuation 2 puff inhalation Q4 PRN Wheezing 01/08/19 12/09/22 History aerosol inhaler omeprazole 40 mg capsule,delayed 40 mg PO DAILY 10/30/19 12/09/22 History release cyclobenzaprine 5 mg tablet 5 mg PO DAILY PRN MUSCLE SPASMS 03/28/21 12/09/22 History potassium chloride 10 mEq 10 meq PO DAILY PRN as needed 03/28/21 12/09/22 History capsule,extended release umeclidinium 62.5 mcg-vilanterol 1 inh inhalation DAILY 03/28/21 12/09/22 History 25 mcg/actuation powdr for inhalation (Anoro Ellipta) multivitamin 1 tab PO DAILY 12/29/21 12/09/22 History spironolactone 25 mg tablet 25 mg PO DAILY 12/29/21 12/09/22 History thiamine HCl (vitamin B1) 100 mg 100 mg PO DAILY 12/29/21 12/09/22 History tablet ferrous sulfate 325 mg (65 mg 325 mg PO UD 10/10/22 12/09/22 History iron) tablet (iron) hydroxyzine HCl 25 mg tablet 25 mg PO HS 10/10/22 12/09/22 History Past Med/Surg History Medical History Alcohol abuse Alcoholic cirrhosis Anxiety and depression Ascites Cirrhosis of liver (11/21/12) COPD (chronic obstructive pulmonary disease) Encounter for pre-operative examination Hepatitis C treated with yash in [facility] pt is now negative Hypokalemia Portal hypertension Thrombocytopenia Transaminitis Surgical History History of total right hip replacement History of tubal ligation Family History Mother Cervical cancer Social History (Updated 12/09/22 @ 14:31 by Catia Corona PA-C) Smoking Status: Light tobacco smoker Tobacco Type: Cigarettes Cigarettes Per Day: recently quit; Second Hand Exposure: No; Do You Dip or Chew Tobacco: No; Tobacco Cessation Education Requested by Patient: Yes Hx Alcohol Use: No Hx Substance Use: No Preferred Language: Mauritian Communication Ability: Effective 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
--- NOTE | 2022-12-14 09:44 | GI REPORT ---
Patient Name: Jeni Zhu Procedure Date: 12/14/2022 9:15 AM Date of : 1965 Admit Type: Inpatient Age: 57 Gender: Female Attending MD: Dean Cortez MD, Procedure: Colonoscopy Providers: Dean Cortez MD Referring MD: Joselin Blackwell Indications: Follow-up of Reena's syndrome Medicines: See the Anesthesia note for documentation of the administered medications Complications: No immediate complications. Estimated Blood Loss: Estimated blood loss: none. Procedure: Pre-Anesthesia Assessment: - ASA Grade Assessment: III - A patient with severe systemic disease. After I obtained informed consent, the scope was passed under direct vision. Throughout the procedure, the patient's blood pressure, pulse, and oxygen saturations were monitored continuously. The Colonoscope was introduced through the anus and advanced to the cecum, identified by appendiceal orifice and ileocecal valve. The colonoscopy was performed without difficulty. The patient tolerated the procedure well. The quality of the bowel preparation was poor. Findings: The perianal and digital rectal examinations were normal. There was a large amount of solid stool throughout the entire colon precluding evaluation of the colonic mucosa. There was no evidence of ischemia in the colon. The scope was passed into the right colon, and the colon was decompressed. A rectal tube was not placed, as this was thought to likely clog due to large amount of colonic stool. Recommendation: Discharge patient to floor. Emycin today, clears. Dean Cortez M.D. Dean Cortez MD 12/14/2022 9:44:34 AM This report has been signed electronically. Note Initiated On: 12/14/2022 9:15 AM Number of Addenda: 0 I attest to the content of the Intraoperative Record and orders documented therein, exceptions below {[id number]}
[2022-12-14] MEDS: PANTOprazole 40 MG TAB PO SCH (10:26)
[2022-12-14] MEDS: UMECLIDINIUM/VILANTEROL 62.5/25MCG 7 PUFFS/INHALER INH SCH (10:26)
[2022-12-14] MEDS: MULTIVITAMIN TAB PO SCH (10:27)
[2022-12-14] MEDS: THIAMINE HCL 100 MG TAB PO SCH (10:27)
[2022-12-14] MEDS: SPIRONOLACTONE 100 MG TAB PO SCH (10:27)
[2022-12-14] MEDS: FUROSEMIDE 20 MG TAB PO SCH (10:27)
--- NOTE | 2022-12-14 10:28 | Anesthesiology Progress Note ---
Date of Service December 14, 2022 Anesthesia Post Procedure Vital Signs Vital Signs: Temp Pulse Resp BP BP Pulse Ox O2 Del Method 12/14/22 10:12 73 18 91/64 L 97 Nasal Cannula 12/14/22 09:57 74 18 89/57 L 98 Nasal Cannula 12/14/22 09:45 66 16 99/54 L 95 Room Air 12/14/22 09:02 37.0 C 20 103/62 94 Nasal Cannula 12/14/22 08:00 Nasal Cannula 12/14/22 07:24 36.7 C 77 18 108/68 96 Nasal Cannula 12/13/22 21:45 37.3 C 88 18 106/70 95 Nasal Cannula 12/13/22 20:30 Nasal Cannula 12/13/22 16:22 37.0 C 90 18 114/66 92 Nasal Cannula 12/13/22 10:37 Nasal Cannula O2 Flow Rate 12/14/22 10:12 2 12/14/22 09:57 2 12/14/22 09:45 0 12/14/22 09:02 2 12/14/22 08:00 2 12/14/22 07:24 2 12/13/22 21:45 2 12/13/22 20:30 2 12/13/22 16:22 3 12/13/22 10:37 3 Pain Intensity Abdomen: Pain Intensity: 3 Transfer of Care Handoff Completed per policy Notes Mental Status: alert / awake / arousable and participated in evaluation Patient Amnestic to Procedure: Yes Nausea / Vomiting: adequately controlled Pain: adequately controlled Airway Patency, RR, SpO2: stable & adequate BP & HR: stable & adequate Hydration State: stable & adequate Anesthetic Complications: no major complications apparent
[2022-12-14] MEDS ORDERED: METHYLNALTREXONE BROMIDE 12 MG/0.6 ML VIAL SQ ONE (10:30)
[2022-12-14] MEDS: ERYTHROMYCIN 250 MG in SODIUM CHLORIDE 0.9% 250 ML IV SCH ×2 (11:38→18:33)
--- NOTE | 2022-12-14 17:36 | Hospitalist Progress Note ---
Date of Service December 14, 2022 Assessment & Plan (1) Ascites: (2) Alcoholic cirrhosis: (3) Abdominal pain: (4) Transaminitis: (5) Pancytopenia: Plan This is a 56-year-old female who has significant past medical history of alcoholic cirrhosis, hepatitis C antibody positive, protein calorie malnutrition, history of alcohol abuse, history of tobacco abuse, depression, pancytopenia, COPD and nocturnal hypoxemia who presents to ED secondary to abdominal pain x4 days. Abdominal pain alcoholic cirrhosis Ascites Transaminitis Constipation History of hep C treated with Brenda Obtain diagnostic and therapeutic paracentesis, send for culture, cell count and cytology albumin given post procedure no signs of SBP at this time ,Stop ceftriaxone She needs additional albumin tomorrow per guidelines 1mg/kg. Lactulose 20 g twice daily to promote bowel movement, can discontinue when patient moves bowels Consider increasing to TID if milk and molasses enema is ineffective. No signs of hepatic encephalopathy Cont increased Aldactone at 100mg daily and new Lasix 20mg daily for GDMT Minimize narcotics use-->she has used 4 dose of morphine in the last 24 hours. Continues to have distention of the abdomen with increasing pain KUB did show persistence of small bowel obstruction/ileus Status post decompression colonoscopy Started on clears today and will be advanced as tolerated Alcohol withdrawal/ h/o abuse AWSS scale added and PRN ativan for anxiety states last drink was in October but withdrawal is in the differential for her symptoms. Will give Ativan as per the protocol-has been having tremors likely secondary to alcohol withdrawal Will increase the frequency of Ativan No signs of withdrawal as of today COPD No exacerbation Continue current management Requiring 2 L to maintain saturation Pancytopenia chronic, In setting of cirrhosis No signs or symptoms of bleeding History of tobacco and alcohol use cessation encouraged. DVT prophylaxis: SCDs Dispo: cont hosp PCP: Howard Full code Admission and Anticipated Discharge Date Admission Date: December 09, 2022 Subjective 12/12/2022 The patient was seen and examined in medical telemetry unit She complains to have abdominal distention with increasing pain without nausea and or vomiting No fever and or chills 12/13/2022 The patient was seen and examined in medical floor She has been very anxious with tremors involving the outstretched hands Her abdomen remains distended but soft and she has been passing gas 12/14/2022 The patient was seen and examined in medical floor She has had colonoscopic decompression today and has been feeling better following that Clears started and will be advanced as tolerated Clinically much better today Review of Systems Review of Systems: All systems reviewed and are unremarkable except as noted below Physical Exam Physical Exam: Lying in bed with acute distress due to abdominal discomfort Constitutional: well developed, well nourished, + ill appearing and average body habitus Eyes: PERRL, conjunctivae normal, anicteric sclerae ENMT: external ear and nose normal, oropharynx normal Neck: trachea midline, no thyromegaly Respiratory: + respiratory distress (Minimal distress at rest) Auscultation: + diminished lung sounds and + wheezes; no crackles Cardiovascular: Rate/Rhythm: regular rate and regular rhythm; not tachycardic Heart Sounds: normal S1 and normal S2; no murmur Extremities: + edema (Trace edema bilaterally) Gastrointestinal (Abdomen): Inspection/Auscultation: + abdomen distended and normal bowel sounds (Decreased) Percussion/Palpation: + abdomen tender, abdomen soft and + tympanic to percussion; no guarding Neurologic: normal touch/pain/proprioception and moves all extremities; no focal motor deficits Psychiatric: A+Ox3, euthymic affect Lymphatic: no cervical or axillary lymphadenopathy Results & Data Results & Data Vital Signs (Past 12 Hours) Vital Signs Temp Pulse Resp BP BP Pulse Ox O2 Del Method 12/14/22 15:35 36.8 C 85 91/54 L 94 Nasal Cannula 12/14/22 14:25 94 Nasal Cannula 12/14/22 14:18 36.9 C 84 18 90/60 L 94 Nasal Cannula 12/14/22 10:25 36.6 C 72 16 100/64 96 Nasal Cannula 12/14/22 10:12 73 18 91/64 L 97 Nasal Cannula 12/14/22 09:57 74 18 89/57 L 98 Nasal Cannula 12/14/22 09:45 66 16 99/54 L 95 Room Air 12/14/22 09:02 37.0 C 20 103/62 94 Nasal Cannula 12/14/22 08:00 Nasal Cannula 12/14/22 07:24 36.7 C 77 18 108/68 96 Nasal Cannula O2 Flow Rate 12/14/22 15:35 2 12/14/22 14:25 2 12/14/22 14:18 5 12/14/22 10:25 2 12/14/22 10:12 2 12/14/22 09:57 2 12/14/22 09:45 0 12/14/22 09:02 2 12/14/22 08:00 2 12/14/22 07:24 2 Laboratory Results BMP 12/14/22 06:09 Sodium 136 Potassium 3.6 Chloride 105 Carbon Dioxide 24 BUN 6 Creatinine 0.64 Glucose 73 Calcium 8.4 L Medications Administered Current Inpatient Medications Acetaminophen (Acetaminophen 500 Mg Tab) 500 mg PO Q4H PRN PRN Reason: pain Stop: 01/09/23 12:19 Last Admin: 12/13/22 20:25 Dose: 500 mg Al Hydrox/Mg Hydrox/Simethicone (Aluminum/Magnesium Susp 30 Ml Udc) 15 ml PO Q4H PRN PRN Reason: Dyspepsia Stop: 01/08/23 17:12 Albuterol (Albuterol Hfa 8 Gm Inhaler) 2 puffs INH Q4R PRN PRN Reason: Wheezing Stop: 01/08/23 17:12 Bisacodyl (Bisacodyl 10 Mg Supp) 10 mg CO BID STEPHAN Stop: 01/13/23 20:59 Furosemide (Furosemide 20 Mg Tab) 20 mg PO QAM STEPHAN Stop: 01/10/23 08:59 Last Admin: 12/14/22 10:27 Dose: 20 mg Hydroxyzine HCl (Hydroxyzine Hcl 25 Mg Tab) 25 mg PO HS STEPHAN Stop: 01/08/23 20:59 Last Admin: 12/13/22 20:23 Dose: 25 mg Promethazine HCl 12.5 mg/ (Sodium Chloride) 50.5 mls @ 202 mls/hr IV Q6H PRN PRN Reason: Nausea And Vomiting Stop: 01/13/23 01:22 Erythromycin Lactobionate 250 (mg/ Sodium Chloride) 255 mls @ 250 mls/hr IV Q8H STEPHAN Stop: 12/24/22 10:29 Last Infusion: 12/14/22 13:08 Dose: Infused Lorazepam (Lorazepam 2 Mg/1 Ml Vial) 0.5 mg IV Q4H PRN PRN Reason: Anxiety/Agitation Stop: 01/10/23 15:39 Last Admin: 12/13/22 10:15 Dose: 0.5 mg Menthol (Cough Drop (Sugar Free) Keith 24 Keith/1 Box) 1 keith BUCCAL Q1H PRN PRN Reason: THROAT IRRITATION Stop: 01/12/23 08:26 Multivitamins (Multivitamin Tab) 1 tab PO DAILY STEPHAN Stop: 01/09/23 08:59 Last Admin: 12/14/22 10:27 Dose: 1 tab Pantoprazole Sodium (Pantoprazole 40 Mg Tab) 40 mg PO DAILY STEPHAN Stop: 01/09/23 08:59 Last Admin: 12/14/22 10:26 Dose: 40 mg Polyethylene Glycol (Polyethylene (Miralax) 17 Gm Pack) 17 gm PO DAILY PRN PRN Reason: Constipation Stop: 01/08/23 17:12 Last Admin: 12/13/22 17:47 Dose: 17 gm Spironolactone (Spironolactone 100 Mg Tab) 100 mg PO QAM [facility] Stop: 01/10/23 08:59 Last Admin: 12/14/22 10:27 Dose: 100 mg Thiamine HCl (Thiamine Hcl 100 Mg Tab) 100 mg PO DAILY STEPHAN Stop: 01/09/23 08:59 Last Admin: 12/14/22 10:27 Dose: 100 mg Umeclidinium/Vilanterol (Umeclidinium/Vilanterol 62.5/25mcg 7 Puffs/Inhaler) 1 puffs INH DAILY STEPHAN Stop: 01/09/23 08:59 Last Admin: 12/14/22 10:26 Dose: 1 puffs (2) Alcoholic cirrhosis Ascites presence: with ascites Qualified Code(s): K70.31 - Alcoholic cirrhosis of liver with ascites
[2022-12-14] MEDS: hydrOXYzine HCl 25 MG TAB PO SCH (20:06)
[2022-12-14] MEDS: bisacodyL 10 MG SUPP PR SCH (20:06)
[2022-12-15] MEDS: ERYTHROMYCIN 250 MG in SODIUM CHLORIDE 0.9% 250 ML IV SCH ×2 (02:08→11:28)
[2022-12-15] MEDS: POLYETHYLENE (MIRALAX) 17 GM PACK PO PRN (06:11)
[2022-12-15 06:39] LABS: Basophils # (auto) 0.04 K/uL (0-0.2); Basophils % (auto) 1.5 %; Eosinophils # (auto) 0.09 K/uL (0-0.50); Eosinophils % (auto) 3.3 %; Hematocrit (blood only) 24.7 % (37.0-47.0); Hemoglobin 8.6 g/dl (12.0-16.0); Immature Granulocytes # (auto) 0.01 K/uL (0.01-0.20); Immature Granulocytes % (auto) 0.4 %; Lymphocytes # (auto) 0.57 K/uL (1.2-3.4); Mean Corpuscular Hemoglobin 33.9 pg (25.0-34.0); Mean Corpuscular Hgb Conc 34.8 g/dL (32.0-36.0); Mean Corpuscular Volume 97.2 fL (80.0-100.0); Mean Platelet Volume 12.4 fL (9.4-12.4); Monocytes # (auto) 0.48 K/uL (0.11-0.59); Monocytes % (auto) 17.7 %; Neutrophils # (auto) 1.52 K/uL (1.40-6.50); Neutrophils % (auto) 56.1 %; Platelet Count 62 K/uL (130-400); RDW Coefficient of Variation 16.2 % (11.5-14.5); RDW Standard Deviation 57.8 fL (36.4-46.3); Red Blood Count 2.54 M/uL (4.20-5.40); White Blood Count 2.71 K/ul (4.8-10.8)
[2022-12-15] MEDS: PANTOprazole 40 MG TAB PO SCH (09:19)
[2022-12-15] MEDS: THIAMINE HCL 100 MG TAB PO SCH (09:19)
[2022-12-15] MEDS: SPIRONOLACTONE 100 MG TAB PO SCH (09:19)
[2022-12-15] MEDS: bisacodyL 10 MG SUPP PR SCH (09:19)
[2022-12-15] MEDS: FUROSEMIDE 20 MG TAB PO SCH (09:19)
[2022-12-15] MEDS: UMECLIDINIUM/VILANTEROL 62.5/25MCG 7 PUFFS/INHALER INH SCH (09:19)
[2022-12-15] MEDS: MULTIVITAMIN TAB PO SCH (09:19)
--- NOTE | 2022-12-15 09:25 | Gastroenterology Progress Note ---
Date of Service December 15, 2022 Assessment & Plan (1) Abdominal pain: Plan: 57 year old female with history of HCV (treated w Harvoni, SVR attained), ETOH cirrhosis, complicated by Grade II esophageal varices (BB use contraindicated, due for EGD for banding), portal HTN, ascites (aldactone only, lasix d/c due to hypokalemia). MELD 13. Admitted with abd pain, distention. S/P paracentesis on 12/09 wo signs of SBP on fluid analysis. Currently abd noted to be distended again, and tender, no BS present. KUB yesterday w findings concerning for ileus. Colonic decompression via colonoscopy on 12/14. Given amt of stool present, rectal tube not placed. She is having less abd distension, and is passing flatus, small stool overnight. No n/v. - Miralax twice daily while hospitalized, resume lactulose on discharge. - Avoid narcotics if possible, encourage OOB, ambulation. Keep K >4 to promote GI motility - 2g Na diet, keep current diuretics, monitor renal function and electrolytes closely. Admission and Anticipated Discharge Date Admission Date: December 09, 2022 Supervising Physician Co-Signing Physician Notes Attg add: Constipation -- Abd distention resolved. Plan to resume lactulose on discharge. Subjective Pt is passing flatus, and had small stools overnight. Denies abd pain, mostly "pressure". No n/v. Review of Systems Review of Systems: All systems reviewed & are unremarkable except as noted in HPI & below Physical Exam Constitutional: WD/WN, vitals as above well groomed, cooperative and comfortable Eyes: PERRL, conjunctivae normal, anicteric sclerae ENMT: external ear and nose normal, oropharynx normal Respiratory: normal respiratory effort, lungs clear to auscultation Cardiovascular: RRR, no murmur, no edema Gastrointestinal (Abdomen): Mild distension, BS present, non tender. Skin: no rashes, warm and dry no jaundice Psychiatric: A+Ox3, euthymic affect Lymphatic: no lymphedema Results & Data Vital Signs (Past 12 Hours) Vital Signs Temp Pulse Resp BP Pulse Ox O2 Del Method O2 Flow Rate 12/15/22 07:50 37.1 C 84 18 93/53 L 95 Nasal Cannula 2 12/14/22 21:55 37.4 C 84 16 92/56 L 95 Nasal Cannula 2 (1) Abdominal pain Abdominal location: upper abdomen, unspecified Qualified Code(s): R10.10 - Upper abdominal pain, unspecified
[2022-12-15 09:41] LABS: BUN Creatinine Ratio 10.3 (10-20); Calcium 8.1 mg/dl (8.6-10.3); Creatinine Clr Calc Pharmacy 91.3 ml/min; Est GFR (African American) 117.8 ml/min; Est GFR (Non-African American) 101.6 ml/min; Potassium 3.6 mmol/L (3.5-5.1)
--- NOTE | 2022-12-15 10:55 | XRay Report ---
KUB HISTORY: re-eval abd distension COMPARISON: KUB 12/13/2022. FINDINGS: Significant improvement in the gaseous distention of the large and small bowel suggesting a resolving ileus. Moderate fecal retention again noted. There is a single screw again noted within th e right acetabulum. Cholelithiasis. No renal calculi. No ureteral calculi. No pneumoperitoneum or pn eumatosis. IMPRESSION: 1. Significant improvement in the gaseous distention of the large and small bowel suggesting a resolv ing ileus. 2. Moderate fecal retention. 3. Cholelithiasis, unchanged. ACT 112: Negative or not required by law. Electronically signed by: Jeremy Jones M.D. 12/15/2022 10:53 AM
--- NOTE | 2022-12-15 14:44 | Hospitalist Progress Note ---
Date of Service December 15, 2022 Assessment & Plan (1) Ascites: (2) Alcoholic cirrhosis: (3) Abdominal pain: (4) Transaminitis: (5) Pancytopenia: Plan This is a 56-year-old female who has significant past medical history of alcoholic cirrhosis, hepatitis C antibody positive, protein calorie malnutrition, history of alcohol abuse, history of tobacco abuse, depression, pancytopenia, COPD and nocturnal hypoxemia who presents to ED secondary to abdominal pain x4 days. Abdominal pain alcoholic cirrhosis Ascites Transaminitis Constipation History of hep C treated with Brenda Obtain diagnostic and therapeutic paracentesis, send for culture, cell count and cytology albumin given post procedure no signs of SBP at this time ,Stop ceftriaxone She needs additional albumin tomorrow per guidelines 1mg/kg. Lactulose 20 g twice daily to promote bowel movement, can discontinue when patient moves bowels Consider increasing to TID if milk and molasses enema is ineffective. No signs of hepatic encephalopathy Cont increased Aldactone at 100mg daily and new Lasix 20mg daily for GDMT Minimize narcotics use-->she has used 4 dose of morphine in the last 24 hours. Continues to have distention of the abdomen with increasing pain KUB did show persistence of small bowel obstruction/ileus Status post decompression colonoscopy Started on clears today and will be advanced as tolerated Clinically much better and was discharged home this afternoon Alcohol withdrawal/ h/o abuse AWSS scale added and PRN ativan for anxiety states last drink was in October but withdrawal is in the differential for her symptoms. Will give Ativan as per the protocol-has been having tremors likely secondary to alcohol withdrawal Will increase the frequency of Ativan No signs of withdrawal as of today Strongly advised to quit drinking COPD No exacerbation Continue current management Requiring 2 L to maintain saturation Has been saturating normally and does not have any shortness of breath with exertion Pancytopenia chronic, In setting of cirrhosis No signs or symptoms of bleeding History of tobacco and alcohol use cessation encouraged. DVT prophylaxis: SCDs Dispo: cont hosp PCP: Howard Full code Admission and Anticipated Discharge Date Admission Date: December 09, 2022 Subjective 12/12/2022 The patient was seen and examined in medical telemetry unit She complains to have abdominal distention with increasing pain without nausea and or vomiting No fever and or chills 12/13/2022 The patient was seen and examined in medical floor She has been very anxious with tremors involving the outstretched hands Her abdomen remains distended but soft and she has been passing gas 12/14/2022 The patient was seen and examined in medical floor She has had colonoscopic decompression today and has been feeling better following that Clears started and will be advanced as tolerated Clinically much better today 12/15/2022 The patient was seen and examined in medical floor She has an x-ray which showed no SBO She has been passing gas and moving her bowel and tolerating regular diet Will be discharged home this afternoon Review of Systems Review of Systems: All systems reviewed and are unremarkable except as noted below Physical Exam Physical Exam: Lying in bed with acute distress due to abdominal discomfort Constitutional: well developed, well nourished, + ill appearing and average body habitus Eyes: PERRL, conjunctivae normal, anicteric sclerae ENMT: external ear and nose normal, oropharynx normal Neck: trachea midline, no thyromegaly Respiratory: + respiratory distress (Minimal distress at rest) Auscultation: + diminished lung sounds and + wheezes; no crackles Cardiovascular: Rate/Rhythm: regular rate and regular rhythm; not tachycardic Heart Sounds: normal S1 and normal S2; no murmur Extremities: + edema (Trace edema bilaterally) Gastrointestinal (Abdomen): Inspection/Auscultation: normal bowel sounds (Decreased); abdomen not distended Percussion/Palpation: abdomen soft; abdomen nontender and no guarding Neurologic: normal touch/pain/proprioception and moves all extremities; no focal motor deficits Psychiatric: A+Ox3, euthymic affect Lymphatic: no cervical or axillary lymphadenopathy Results & Data Results & Data Vital Signs (Past 12 Hours) Vital Signs Temp Pulse Resp BP Pulse Ox O2 Del Method O2 Flow Rate 12/15/22 08:00 Room Air 12/15/22 07:50 37.1 C 84 18 93/53 L 95 Nasal Cannula 2 Laboratory Results Short CBC 12/15/22 Range/Units 05:50 WBC 2.71 L (4.8-10.8) K/ul Hgb 8.6 L (12.0-16.0) g/dl Hct 24.7 L (37.0-47.0) % Plt Count 62 L (130-400) K/uL BMP 12/15/22 05:50 Sodium 139 Potassium 3.6 Chloride 109 H Carbon Dioxide 23 BUN 6 Creatinine 0.58 L Glucose 70 Calcium 8.1 L (2) Alcoholic cirrhosis Ascites presence: with ascites Qualified Code(s): K70.31 - Alcoholic cirrhosis of liver with ascites
--- NOTE | 2022-12-16 09:28 | Discharge Summary ---
Date of Service December 15, 2022 Admission HPI Per Admitting Provider Chief Complaint: Abdominal pain x4 days. Primary Care Provider: Sumi Dailey DO This is a 56-year-old female who has significant past medical history of alcoholic cirrhosis, hepatitis C antibody positive, protein calorie malnutrition, history of alcohol abuse, history of tobacco abuse, depression, pancytopenia, COPD and nocturnal hypoxemia who presents to ED secondary to abdominal pain x4 days. Patient follows [facility]. She was last hospitalized December 2021 for GI bleed under which she went EGD and banding of esophageal varices. Since then she has been on and off with alcohol use. She states her last drink which November 14, 2022. She notes over the last 4 days increasing abdominal pain and distention. She admits to not being compliant with her Aldactone. She had some nausea this morning but denies any vomiting or hematemesis. She has not moved her bowels in 4 to 5 days as well. She has been using [id number] stool softeners with Dulcolax and MiraLAX without relief. She denies fever or sweats but complains about being chilled. She does have chronic lightheadedness upon standing. She denies any URI symptoms, chest pain, shortness breath at rest, hemoptysis, vomiting, dysuria, increased urgency or frequency with urination, melena or hematochezia. She does have prior history of paracentesis a few years ago. In ED pt remained hemodynamically stable. Lab work notable for pancytopenia and stable H&H at 9.9 and 28.8. Her INR was mildly elevated at 1.3. She does have hypokalemia at 2.7. She does have a transaminitis with a total bilirubin of 4.1, AST 94 and alkaline phosphatase of 119. Lactic acid is mildly elevated at 2.3. CT abdomen pelvis revealed cirrhosis, cholelithiasis with no gallbladder wall thickening, small to moderate amount of ascites which has progressed as well as the thickening within the proximal colon likely representing a portal colopathy. Admission Exam Per Admitting Provider Physical Exam: Constitutional: WD/WN, vitals as above, NAD, sitting up in bed, pleasant, conversing easily Head: Normocephalic, Atraumatic Eyes: PERRL, conjunctivae normal, anicteric sclerae ENMT: external ear and nose normal, oropharynx normal Neck: trachea midline, no thyromegaly normal visual inspection Respiratory: normal respiratory effort, lungs clear to auscultation, no wheeze, rales, rhonchi. Normal insp/exp effort, no accessory muscle use Cardiovascular: RRR, no murmur, no edema Vessels: no JVD or carotid bruit Chest: normal inspection of chest Abdomen: diminished bowel sounds, firm + distended, TTP diffusely with mild guarding, worse at LUQ, spider angiomata Musculoskeletal: no cyanosis or clubbing, extremities motor strength 5/5 Skin: no rashes, warm and dry normal turgor , ecchymosis to extremities Neurologic: PERRL, EOMI, accommodation nl, no face palsy, no dysarthria CN's II-XI intact bilaterally and moves all extremities Psychiatric: A+Ox3, euthymic affect Lymphatic: no cervical or axillary lymphadenopathy : deferred Principal Diagnosis Partial small bowel obstruction-resolved, alcoholic cirrhosis, COPD, history of hep C Discharge Exam Lying in bed with acute distress due to abdominal discomfort Constitutional well developed, well nourished, + ill appearing and average body habitus Eyes PERRL, conjunctivae normal, anicteric sclerae ENMT external ear and nose normal, oropharynx normal Neck trachea midline, no thyromegaly Respiratory + respiratory distress (Minimal distress at rest) Auscultation: + diminished lung sounds and + wheezes; no crackles Cardiovascular Rate/Rhythm: regular rate and regular rhythm; not tachycardic Heart Sounds: normal S1 and normal S2; no murmur Extremities: + edema (Trace edema bilaterally) Gastrointestinal (Abdomen) Inspection/Auscultation: normal bowel sounds (Decreased); abdomen not distended Percussion/Palpation: abdomen soft and + tympanic to percussion; abdomen nontender and no guarding Neurologic normal touch/pain/proprioception and moves all extremities; no focal motor deficits Psychiatric A+Ox3, euthymic affect Lymphatic no cervical or axillary lymphadenopathy Discharge Data Allergies Allergy/AdvReac Type Severity Reaction Status Date / Time codeine AdvReac Severe upset Verified 12/14/22 09:02 stomach Consultations 12/09/22 13:44 ED Decision to Admit Stat 12/09/22 17:13 Consult Gastroenterology Routine Procedures Performed Operation Date: 12/14/22 16:30 Actual Procedures p Colonoscopy - Irphan E. Gaslightwala, MD Ordered Studies 12/09/22 09:54 CT abd pelvis IV con only Stat 12/09/22 13:53 IR paracentesis abd w/img US Stat Hospital Course (1) Ascites: (2) Alcoholic cirrhosis: (3) Abdominal pain: (4) Transaminitis: (5) Pancytopenia: Plan This is a 56-year-old female who has significant past medical history of alcoholic cirrhosis, hepatitis C antibody positive, protein calorie malnutrition, history of alcohol abuse, history of tobacco abuse, depression, pancytopenia, COPD and nocturnal hypoxemia who presents to ED secondary to abdo faraz pain x4 days. Abdominal pain alcoholic cirrhosis Ascites Transaminitis Constipation History of hep C treated with Brenda Obtain diagnostic and therapeutic paracentesis, send for culture, cell count and cytology albumin given post procedure no signs of SBP at this time ,Stop ceftriaxone She needs additional albumin tomorrow per guidelines 1mg/kg. Lactulose 20 g twice daily to promote bowel movement, can discontinue when patient moves bowels Consider increasing to TID if milk and molasses enema is ineffective. No signs of hepatic encephalopathy Cont increased Aldactone at 100mg daily and new Lasix 20mg daily for GDMT Minimize narcotics use-->she has used 4 dose of morphine in the last 24 hours. Continues to have distention of the abdomen with increasing pain KUB did show persistence of small bowel obstruction/ileus Status post decompression colonoscopy Started on clears today and will be advanced as tolerated Clinically much better and was discharged home this afternoon Alcohol withdrawal/ h/o abuse AWSS scale added and PRN ativan for anxiety states last drink was in October but withdrawal is in the differential for her symptoms. Will give Ativan as per the protocol-has been having tremors likely secondary to alcohol withdrawal Will increase the frequency of Ativan No signs of withdrawal as of today Strongly advised to quit drinking COPD No exacerbation Continue current management Requiring 2 L to maintain saturation Has been saturating normally and does not have any shortness of breath with exertion Pancytopenia chronic, In setting of cirrhosis No signs or symptoms of bleeding History of tobacco and alcohol use cessation encouraged. DVT prophylaxis: SCDs Dispo: cont hosp PCP: Howard Full code Total Time Total Time Spent Total Time Spent (In Minutes): 35 minutes Discharge Plan Discharge Items Patient Disposition: Home - Self-Care Reason For Visit: ASCITES, ABDOMINAL PAIN Discharge Diagnosis: Partial small bowel obstruction-resolved, alcoholic cirrhosis, COPD, history of hep C Condition on Discharge: Good Activity: Resume your previous activity Non-emergency contact: Primary Care Provider Call non-emergency contact if: you have any medication questions and your symptoms worsen Follow-up/Referrals: Sumi Dailey DO [Primary Care Provider] - 12/21/22 3:00 pm (Date & Time 12/21/2022 3:00 PM Provider Sumi Dailey DO [facility] ) Diet: Regular and Low Sodium (2gm) Addtl Attending Provider Instructions: Please take precautions to avoid fall. Take your medications as advised Please give appointments with your healthcare providers Strongly advised not to drink any alcohol Pending Studies at Discharge: No Stand-Alone Forms: [employer], Smoking Cessation Medications and DC Order Prescriptions: New spironolactone 100 mg Tablet 100 mg PO QAM Qty: 30 0RF furosemide 20 mg Tablet 20 mg PO QAM Qty: 30 0RF polyethylene glycol 3350 [Miralax] 17 gram Powder In Packet 17 g PO BID Qty: 60 0RF bisacodyl [Dulcolax (bisacodyl)] 5 mg tablet,delayed release (DR/EC) 10 mg PO HS Qty: 60 0RF Xifaxan 550 mg tablet 550 mg PO BID Qty: 60 0RF Continued albuterol sulfate 90 mcg/actuation Hfa Aerosol Inhaler 2 puff INHALATION Q4 PRN (Reason: Wheezing) omeprazole 40 mg capsule,delayed release(DR/EC) 40 mg PO DAILY cyclobenzaprine 5 mg tablet 5 mg PO DAILY PRN (Reason: MUSCLE SPASMS) Anoro Ellipta 62.5-25 mcg/actuation blister with device 1 inh INHALATION DAILY potassium chloride 10 mEq capsule, extended release 10 meq PO DAILY PRN (Reason: as needed) Patient Comments: does not take regularly hydroxyzine HCl 25 mg tablet 25 mg PO HS ferrous sulfate [iron] 325 mg (65 mg iron) Tablet 325 mg PO UD multivitamin Tablet 1 tab PO DAILY thiamine HCl (vitamin B1) 100 mg Tablet 100 mg PO DAILY Patient Comments: does not take regularly Discontinued spironolactone 25 mg tablet 25 mg PO DAILY Patient Comments: patient self stopped a few months ago Discharge Orders: Discharge Order (Routine); Ordered 12/15/22 Ordered By: Joselin Blackwell Admission Data Admit Date/Time: 12/09/22 14:17 Attending Provider: Joselin Blackwell Admit Provider: Brian Borjas Primary Care Provider: Sumi Dailey Other Providers: Brian Borjas ; Herbie Bro ; Apoorva Saldivar ; Catia Corona Other Interventions: Discharge Summary Assessment (RN) Last Done: 12/15/22 15:01
== END 2022-12-15 15:48 | disposition home or self-care (01) | DRG 389 ==
LOC: ED 09:18 → EDINP 14:17 → SUATTDRO 14:17 → 2W 17:14 → 3N 12-12 23:06

== ENCOUNTER 2024-11-07 09:14 | Inpatient (IN) ==
--- NOTE | 2024-11-07 09:33 | Emergency Department Note ---
Impression & Plan Transaminitis, Ascites, Cirrhosis ED Provider Note NAME: SERGIO MCCRARY AGE: 58 SEX: F : 1965 ARRIVES VIA: Walk-In INFORMANT: Patient, ED PROVIDER(S): Vincent Brewer MD CHIEF COMPLAINT: Abdominal swelling MEDICAL DECISION MAKING: Patient presents with the above with some associated shortness of breath which is likely related to the patient's abdominal swelling does have a known history of COPD. IV was established and blood work was obtained along with coagulation studies. Patient likely would benefit from paracentesis. No acute concerns initially for SBP. Patient is had 1 prior paracentesis before back in 2022. Patient did have screening chest x-ray EKG and troponin obtained along with CBC CMP and coagulation studies. Patient's blood work showed a normal white count virtually normal hemoglobin 11.7 with a normal platelet count. Kidney function is unremarkable mild hypokalemia 3.4. INR 1.2. Bilirubin of 2.1 with an AST of 47. Bilirubin is improved compared to prior. Lipase of 100. Urinalysis does not show evidence of blood or infection. Patient likely would benefit from paracentesis. I did speak with the on-call hospital service Sudarshan Martino PA-C and the patient was admitted by Dr. Myers. Discussion w/ other healthcare providers: Siva Martino PA-C and Dr. Spear inpatient medicine service. Prior /Outside records reviewed: I reviewed part of a GI visit from April 04, 2024 w/ STEPHENIE Bradford. Patient with a known history of HCV and alcohol cirrhosis. Patient also with a history of varices status post banding. Did review part of a primary care visit from September 06, 2024. Patient also with a known history of iron deficiency anemia COPD and portal hypertension. Differential diagnosis: Appendicitis, ovarian cyst, ovarian torsion, ectopic , TOA, PID, diverticulitis, UTI, obstruction, inflammatory bowel disease, renal colic, PUD, pancreatitis, biliary pathology, hernia, volvulus, constipation, as well as other pathologies were considered. Diagnostics, as interpreted by me: ECG: Sinus with PACs, rate of 83, normal intervals, normal axis no ST elevations. Cardiac monitoring: An order was placed for continuous cardiac monitoring. The monitor shows a rate of 87 with sinus rhythm. Patient was placed on pulse oximetry Medical decision rules: None Imaging studies: I informally interpreted the patient's Chest x-ray does not show obvious pneumonia or pneumothorax with formal report to follow. HPI: Patient presents to concern for abdominal swelling. The patient reports that she has had worsening swelling in the last several weeks. The patient does have a prior history of HCV and cirrhosis secondary to alcohol use. Patient denies any falls or trauma. Patient states that she does wear oxygen at night due to a known history of COPD but that her abdominal swelling and fluid retention has made it more difficult to breathe and not feel short of breath with activity. Patient has not had alcohol in about a year. Patient states that the last time that she had a paracentesis was in 2022 during a hospitalization at that time. Patient states she is compliant with all of her Aldactone and other medications. PAST MEDICAL HISTORY: See Below PAST SURGICAL HISTORY: See Below SOCIAL HISTORY: See Below HOME MEDICATIONS: See Below ALLERGIES: See Below VITALS: See Below PHYSICAL EXAMINATION: GENERAL: NAD, non-toxic. EYE EXAM: Normal conjunctiva. PERRL, no anisocoria and EOM's grossly intact w/o pain. OROPHARYNX: Moist mucus membranes, grossly normal dentition. NECK: Trachea midline, no stridor. Supple, no nuchal rigidity, no adenopathy, non-tender. No signs of meningismus. FROM of the neck with good chin to chest and neck extension. LUNGS: Clear to auscultation. Normal chest wall mechanics. HEART: NSR, no MRG. ABDOMEN: Abdomen soft, abdominal swelling, positive fluid wave. No significant TTP. BACK: No CVA TTP. SKIN: No rashes and no bruising. UPPER EXTREMITIES: Upper extremities are grossly normal. LOWER EXTREMITIES: Grossly normal, no edema. NEURO EXAM: A&O x3, cranial nerves II-XII grossly intact, normal speech, moves all 4 extremities. Past Med/Surg History Problem List (Updated 11/07/24 @ 17:40 by Vincent Brewer MD) Cirrhosis (Acute) Chronic constipation Low back pain Tobacco use disorder Ascites Decompensated cirrhosis Encounter for pre-operative examination Abdominal pain (Acute) Total bilirubin, elevated (Acute) Pancytopenia (Acute) Abdominal pain Injury of left leg (Acute) Encounter for pre-operative examination Ascites (Acute) Alcoholic cirrhosis (Acute) Melena Acute upper gastrointestinal bleeding (Acute) Hx of esophageal varices (Acute) DVT prophylaxis Portal hypertension COPD (chronic obstructive pulmonary disease) Hepatitis C treated with harvoni in [facility] pt is now negative Transaminitis (Acute) Thrombocytopenia Cirrhosis of liver (Chronic 11/21/12) Medical History Alcohol abuse Alcoholic cirrhosis Hypokalemia Anxiety and depression Surgical History History of total right hip replacement History of tubal ligation Family History Mother Cervical cancer Social History Smoking Status: Current some day smoker Tobacco Type: Cigarettes Cigarettes Per Day: recently quit; Second Hand Exposure: No; Do You Dip or Chew Tobacco: No; Tobacco Cessation Education Requested by Patient: No Hx Alcohol Use: No Hx Substance Use: No Preferred Language: Swiss Communication Ability: Effective Rubbish Collector Required: No Beliefs That Will Affect Care: None marital status: Current Living Situation: Spouse Other Information That Helps Us Care for You: No Feels Safe at Home: Yes Safety Concerns: Feels Safe At This Time Assistive Devices: None Allergies Allergies Allergy/AdvReac Type Severity Reaction Status Date / Time codeine AdvReac Severe upset Verified 11/07/24 11:30 stomach Home Meds Home Medications Medication Instructions Recorded Confirmed albuterol sulfate 90 mcg/actuation 2 puff inhalation Q4 PRN Wheezing 01/08/19 11/07/24 aerosol inhaler omeprazole 40 mg capsule,delayed 40 mg PO DAILY 10/30/19 11/07/24 release cyclobenzaprine 5 mg tablet 5 mg PO DAILY PRN MUSCLE SPASMS 03/28/21 11/07/24 multivitamin 1 tab PO DAILY 12/29/21 11/07/24 thiamine HCl (vitamin B1) 100 mg 100 mg PO DAILY 12/29/21 11/07/24 tablet fluticasone fur. 100 mcg-umeclid 1 inh inhalation QAM 11/07/24 11/07/24 62.5 mcg-vilant 25 mcg inhalat.powder (Trelegy Ellipta) Previous Rx's Medication Instructions Recorded bisacodyl 5 mg tablet,delayed 10 mg (2 x 5 mg) PO HS #60 tabs 12/15/22 release (Dulcolax (bisacodyl)) furosemide 20 mg tablet 20 mg PO QAM #30 tabs 12/15/22 polyethylene glycol 3350 17 gram 17 g PO BID #60 doses 12/15/22 oral powder packet (Miralax) spironolactone 100 mg tablet 100 mg PO QAM #30 tabs 12/15/22 Results & Data (ED) Vital Signs Vital Signs - 24 hr 11/07/24 09:14 11/07/24 09:17 11/07/24 09:43 Temperature 36.8 C Temperature Source Temporal Artery Scan Pulse Rate 92 H 85 Pulse Rate [Right] 76 Pulse Rhythm Pulse Rhythm [Right] Regular Pulse Strength [Right] Normal Respiratory Rate 18 18 Respiratory Effort / Characteristics Non-Labored Respiratory Depth Normal Respiratory Pattern Regular Blood Pressure 113/69 Blood Pressure [Right Arm] 117/86 Blood Pressure Mean 83 Blood Pressure Mean [Right Arm] 96 Blood Pressure Position [Right Arm] Lying Pulse Oximetry 94 92 Oxygen Delivery Method Room Air Room Air Sepsis New/Unexplained Change in Mental Status No Sepsis Action Taken by Nursing No Action Required 11/07/24 09:46 Temperature Temperature Source Pulse Rate 77 Pulse Rate [Right] Pulse Rhythm Regular Pulse Rhythm [Right] Pulse Strength [Right] Respiratory Rate 18 Respiratory Effort / Characteristics Respiratory Depth Respiratory Pattern Blood Pressure Blood Pressure [Right Arm] Blood Pressure Mean Blood Pressure Mean [Right Arm] Blood Pressure Position [Right Arm] Pulse Oximetry 93 Oxygen Delivery Method Room Air Sepsis New/Unexplained Change in Mental Status Sepsis Action Taken by [facility] Medications Current Medication List: was personally reviewed by me Laboratory Data Attestation: I reviewed the patient's lab results. 11/07/24 09:37 11/07/24 09:37 Lab Results 11/07/24 11/07/24 Range/Units 09:35 09:37 WBC 10.56 (4.8-10.8) K/ul RBC 3.61 L (4.20-5.40) M/uL Hgb 11.7 L (12.0-16.0) g/dl Hct 36.5 L (37.0-47.0) % MCV 101.1 H (80.0-100.0) fL MCH 32.4 (25.0-34.0) pg MCHC 32.1 (32.0-36.0) g/dL RDW Std Deviation 68.7 H (36.4-46.3) fL RDW Coeff of Radha 18.5 H (11.5-14.5) % Plt Count 176 (130-400) K/uL MPV 11.1 (9.4-12.4) fL Immature Gran % (Auto) 1.7 % Neut % (Auto) 70.5 % Lymph % (Auto) 7.7 % [place] % (Auto) 12.7 % Eos % (Auto) 4.4 % Baso % (Auto) 3.0 % Neut # (Auto) 7.45 H (1.40-6.50) K/uL Lymph # (Auto) 0.81 L (1.20-3.40) K/uL [place] # (Auto) 1.34 H (0.11-0.59) K/uL Eos # (Auto) 0.46 (0.00-0.50) K/uL Baso # (Auto) 0.32 H (0.00-0.20) K/uL Immature Gran # (Auto) 0.18 (0.01-0.20) K/uL PT 13.0 H (9.0-12.0) Seconds INR 1.2 H (0.9-1.1) APTT 28 (21-31) Seconds PTT Ratio 1.0 Sodium 136 (136-145) mmol/L Potassium 3.4 L (3.5-5.1) mmol/L Chloride 107 (98-107) mmol/L Carbon Dioxide 22 (21-32) mmol/L Anion Gap 7 (3-11) BUN 9 (6-23) mg/dl Creatinine 0.78 (0.6-1.2) mg/dl Est Cr Clr Drug Dosing 69.9 ml/min eGFR 87.44 BUN/Creatinine Ratio 11.5 (10-20) Glucose 106 H (70-99(Fasting)) mg/dl Calcium 8.8 (8.6-10.3) mg/dl Total Bilirubin 2.1 H (0.2-1.0) mg/dl AST 47 H (13-39) U/L ALT 20 (7-52) U/L Alkaline Phosphatase 123 H (34-104) U/L Troponin I High Sens 4.6 (0-14) pg/ml Total Protein 7.8 (6.0-8.3) gm/dl Albumin 3.3 L (3.4-5.0) gm/dl Globulin 4.5 H (2.5-4.0) gm/dl Albumin/Globulin Ratio 0.7 L (0.9-2) Lipase 101 H (11-82) U/L Urine Color Yellow Urine Appearance Clear (Clear) Urine pH 6.0 (4.5-7.5) Ur Specific [place] 1.004 (1.000-1.030) Urine Protein Negative (Negative) Urine Glucose (UA) Negative (Negative) Urine Ketones Negative (Negative) Urine Blood Negative (Negative) Urine Nitrite Negative (Negative) Urine Bilirubin Negative (Negative) Urine Urobilinogen Negative (Negative) Ur Leukocyte Esterase Negative (Negative) Administered Medications Ketorolac Tromethamine (Ketorolac Tromethamine 15 Mg/Ml Vial) 15 mg IV Q6H PRN PRN Reason: Mod-Sev Pain (Scale 4-10) Stop: 11/12/24 15:43 Last Admin: 11/07/24 16:01 Dose: 15 mg Documented By: JEAN-CLAUDE Lactulose (Lactulose Syrup 30 Gm/45 Ml Udp) 30 gm PO TID STEPHAN Stop: 12/07/24 13:59 Last Admin: 11/07/24 15:18 Dose: 30 gm Documented By: JEAN-CLAUDE Discontinued Medications Fentanyl Citrate (Fentanyl Citrate Pf 100 Mcg/2 Ml Vial) 25 mcg IV NOW STA Stop: 11/07/24 09:47 Last Admin: 11/07/24 09:56 Dose: 25 mcg Documented By: ARDEN Ketorolac Tromethamine (Ketorolac Tromethamine 15 Mg/Ml Vial) 10 mg IV NOW ONE Stop: 11/07/24 11:49 Last Admin: 11/07/24 12:32 Dose: 10 mg Documented By: ARDEN Lidocaine (Lidocaine 5% 1 Patch) 1 patch TD NOW ONE Stop: 11/07/24 12:01 Last Admin: 11/07/24 12:37 Dose: 1 patch Documented By: ARDEN Potassium Chloride (Potassium Chloride Crtab 20 Meq Tabcr) 40 meq PO NOW STA Stop: 11/07/24 11:53 Last Admin: 11/07/24 12:30 Dose: 40 meq Documented By: ARDEN Imaging Data Radiologist's Impression: Chest X-Ray 11/07/24 09:46 XR chest 1V portable CLINICAL HISTORY: ab swelling/sob, h/o COPD/cirrhosis COMPARISON STUDY: 12/09/2022 FINDINGS: Heart size and pulmonary vasculature are normal. No effusion or consolidation. IMPRESSION: No pneumonia seen. ACT 112: Negative or not required by law. Electronically signed by: Sterling Malloy M.D. 11/07/2024 10:14 AM Discharge Plan Visit Data Chief Complaint: Abdominal Pain Stated Complaint: SWOLLEN STOMACH, CONSTIPATION, BACK PAIN ED Provider: Vincent Brewer Discharge Problem: Transaminitis, Ascites, Cirrhosis Patient Disposition: Admitted As Inpatient Discharge Instructions Interventions: ED Discharge Assessment Last Done: 11/07/24 13:11 Discharge Problem: Ascites Qualifiers: Ascites type: due to alcoholic cirrhosis Qualified Code(s): K70.31 - Alcoholic cirrhosis of liver with ascites Cirrhosis Qualifiers: Hepatic cirrhosis type: alcoholic cirrhosis Ascites presence: with ascites Q ualified Code(s): K70.31 - Alcoholic cirrhosis of liver with ascites
[2024-11-07] MEDS: fentaNYL citrate PF 100 MCG/2 ML VIAL IV STA (09:56)
--- NOTE | 2024-11-07 10:15 | XRay Report ---
XR chest 1V portable CLINICAL HISTORY: ab swelling/sob, h/o COPD/cirrhosis COMPARISON STUDY: 12/09/2022 FINDINGS: Heart size and pulmonary vasculature are normal. No effusion or consolidation. IMPRESSION: No pneumonia seen. ACT 112: Negative or not required by law. Electronically signed by: Sterling Malloy M.D. 11/07/2024 10:14 AM
[2024-11-07 10:23] LABS: Albumin Globulin Ratio 0.7 (0.9-2); Albumin Level 3.3 gm/dl (3.4-5.0); BUN Creatinine Ratio 11.5 (10-20); Bilirubin,Total 2.1 mg/dl (0.2-1.0); Calcium 8.8 mg/dl (8.6-10.3); Creatinine Clr Calc Pharmacy 69.9 ml/min; Globulin 4.5 gm/dl (2.5-4.0); Potassium 3.4 mmol/L (3.5-5.1); Total Protein 7.8 gm/dl (6.0-8.3)
[2024-11-07 10:26] LABS: Basophils # (auto) 0.32 K/uL (0.00-0.20); Eosinophils # (auto) 0.46 K/uL (0.00-0.50); Eosinophils % (auto) 4.4 %; Hematocrit (blood only) 36.5 % (37.0-47.0); Hemoglobin 11.7 g/dl (12.0-16.0); Immature Granulocytes # (auto) 0.18 K/uL (0.01-0.20); Immature Granulocytes % (auto) 1.7 %; Lymphocytes # (auto) 0.81 K/uL (1.20-3.40); Lymphocytes % (auto) 7.7 %; Mean Corpuscular Hemoglobin 32.4 pg (25.0-34.0); Mean Corpuscular Hgb Conc 32.1 g/dL (32.0-36.0); Mean Corpuscular Volume 101.1 fL (80.0-100.0); Mean Platelet Volume 11.1 fL (9.4-12.4); Monocytes # (auto) 1.34 K/uL (0.11-0.59); Monocytes % (auto) 12.7 %; Neutrophils # (auto) 7.45 K/uL (1.40-6.50); Neutrophils % (auto) 70.5 %; Platelet Count 176 K/uL (130-400); RDW Coefficient of Variation 18.5 % (11.5-14.5); RDW Standard Deviation 68.7 fL (36.4-46.3); Red Blood Count 3.61 M/uL (4.20-5.40); White Blood Count 10.56 K/ul (4.8-10.8)
[2024-11-07 10:26] LABS: Appearance Urine Clear (Clear); Bilirubin Urine Negative (Negative); Blood Urine Negative (Negative); Color Urine Yellow; Glucose Urine UA Negative (Negative); Ketones Urine Negative (Negative); Leukocyte Esterase Urine Negative (Negative); Nitrite Urine Negative (Negative); Protein Urine Negative (Negative); Specific Gravity Urine 1.004 (1.000-1.030); Urobilinogen Urine Negative (Negative)
[2024-11-07 10:29] LABS: Troponin I High Sensitivity 4.6 pg/ml (0-14)
[2024-11-07 10:35] LABS: INR 1.2 (0.9-1.1); Partial Thromboplastin Time 28 Seconds (21-31)
--- NOTE | 2024-11-07 10:46 | History & Physical Report ---
<Statement entered by Mayco Myers, DO - 11/07/24 16:51> I have seen and examined the patient and have discussed the case with the advance practice provider. I have reviewed the advanced practitioner's documentation, and I agree with, and take responsibility for that plan of care. Patient seen evaluated while still in the ED. Moderate discomfort due to significant ascitic fluid Abdomen: Distended, tense, firm, positive fluid wave, mild tenderness Anticipate patient will need higher dose of both furosemide and Aldactone at the time of discharge Agree with paracentesis Further plan of care discussed as outlined below I spent a total of 17 minutes coordinating, documenting, and providing care for this patient excluding time spent by another provider/QHP. Date of Service November 07, 2024 Assessment & Plan (1) Ascites: (2) Decompensated cirrhosis: Plan: Jeni Zhu is a 58y/o F with PMHx significant for COPD, nocturnal hypoxemia, history of alcohol abuse, alcoholic cirrhosis, hepatitis C treated using Harvoni with sustained virologic response, portal hypertensive gastropathy, grade I esophageal varices, pancytopenia, chronic constipation, protein-calorie malnutrition and depression with anxiety who presented to the ED from home with complaint of abdominal distention/fluid accumulation and constipation. History obtained from the patient, discussion with ED provider and associated chart review. Follows with [facility]. MELD score = 11 points. HCV/EtOH cirrhosis; last ETOH use was November 14, 2022. Regarding HCV, treated with Harvoni, sustained virologic response attained. VSS on admission. Mild transaminitis with AST 47, alk phos 123 and total bilirubin 2.1; Contacted Satinder Bales PA-C with interventional radiology via [facility]. Planning to hopefully perform paracentesis today. Increase Lasix dose to 40mg daily for now. Continue current Aldactone dose of 100mg daily. Continue PPI. Obtain diagnostic and therapeutic paracentesis as above. Given absence of leukocytosis/fever/N/V/abdominal pain, suspicion for SBP is low. (3) Hypokalemia: Plan: K+ 3.4 on admission. Will replete with po 40mEq KCl now. Start po 10mEq KCl BID for now - monitor and increase/replete PRN. (4) Chronic constipation: Plan: No bowel movement in 3-4 days. Uses Dulcolax and Miralax at home PRN. Initiate lactulose 30g TID to hopefully promote bowel movements. Continue stool softener. (5) Tobacco use disorder: Plan: Trying to cut back. Smokes about 1/2-1 pack of cigarettes every 1-2 weeks. Encourage smoking cessation. No need for nicotine patch at this time. (6) COPD (chronic obstructive pulmonary disease): Plan: Follows with [facility] as an outpatient. No signs/symptoms of acute exacerbation. CXR reassuring. Continue Trelegy, PRN Duonebs for any SOB or wheezing. (7) Low back pain: Plan: Suspect 2/2 above constipation and ascites. Lidocaine patch PRN. Heating patch PRN. Judicious narcotic use ISO constipation. DVT Prophylaxis: SCDs/TEDs for now in anticipation for paracentesis as per above. Code Status: FULL CODE PCP: Sumi Dailey DO Disposition: Admit to med/telemetry for further inpatient evaluation and management. Patient seen in collaboration with Dr. Myers. Please see addendum. I spent a total of 55 minutes coordinating, documenting, and providing care for this patient excluding time spent in the performance of separately billed services or time spent by another provider/QHP. This included personally reviewing all current laboratories and imaging studies, medical reconciliation, outpatient chart review and discussion with specialists. This chart was completed in part utilizing Speech Voice Recognition Software. Grammatical errors, random word insertions, pronoun errors, and incomplete sentences are an occasional consequence of this system due to software limitations, ambient noise, and hardware issues. Any formal questions or concerns about the content, text, or information contained within the body of this dictation should be directly addressed to the provider for clarification. History of Present Illness Chief Complaint: "Fluid accumulation in my belly" Primary Care Provider: Sumi Dailey DO Jeni Zhu is a 58y/o F with PMHx significant for COPD, nocturnal hypoxemia, history of alcohol abuse, alcoholic cirrhosis, hepatitis C treated using Harvoni with sustained virologic response, portal hypertensive gastropathy, grade I esophageal varices, pancytopenia, chronic constipation, protein-calorie malnutrition and depression with anxiety who presented to the ED from home with complaint of abdominal distention/fluid accumulation and constipation. History obtained from the patient, discussion with ED provider and associated chart review. Follows with [facility]. MELD score = 11 points today. HCV/EtOH cirrhosis; last ETOH use was November 14, 2022. Regarding HCV, treated with Harvoni, sustained virologic response attained. Notes increasing abdominal distention and swelling over the past week. Recently contacted her GI provider 2 days ago regarding this through [facility]. Her dose of Aldactone was increased from 50mg daily to 100mg daily. She was also restarted on Lasix 20mg daily. Mentions she was on Lasix in the past but stopped it due to hypokalemia. Notes compliance with these diuretic changes, which she started taking yesterday, but unfortunately no improvement in her abdominal distention and swelling. No fevers. No tenderness with palpation of her abdomen. Notes having an appetite but "feeling too full to eat." No bowel movement in the past 3-4 days. Notes chronic constipation issues. Has been using both Miralax and Dulcolax. Attempted an enema at home yesterday with only minimal stool output. No nausea or vomiting. Has a chronic nonproductive cough. Denies any lightheadedness or dizziness. Former alcoholic. Has not had an alcoholic beverage since October 2022. Current cigarette smoker and has been since her teenage years. Trying to cut back. Now smoking about 1/2-1 pack every 1-2 weeks. Denies need for nicotine patch. Mentions she has not undergone paracentesis since her previous admission here back in November 2022. She is endorsing some low back pain but notes this started after she developed the abdominal distention. Denies any SOB. Uses 2L via [facility] due to nocturnal hypoxemia but no supplemental oxygen requirement during the day. Took all of her home medications this morning. Decompensations Varices: S/p banding with f/u EGD in January 2024 with Grade I EV which were not banded. On omeprazole 40mg daily. Ascites/Edema: Dose of Aldactone increased to 100mg daily on 11/05/24. Also restarted Lasix 20mg daily on 11/05/24 as directed by GI. Screenings HCC: Most recent liver imaging US December 2023 w/o focal lesion. EGD, January 2024: Normal esophagus, grade I esophageal varices, Z-line regular, moderate to severe portal hypertensive gastropathy (mild oozing with passage of the scope) and normal duodenal bulb and second portion of the duodenum. Abdominal US, December 2023: Cirrhosis with portal hypertension and mild ascites, no focal hepatic lesion identified. Cholelithiasis. VSS on admission. Initial laboratory evaluation reviewed. Hgb stable at 11.7 (baseline around 10-12). Hypokalemia with K+ of 3.4 but otherwise electrolytes are stable. Mild transaminitis with AST 47, alk phos 123 and total bilirubin 2.1; lipase appears chronically elevated in the setting of underlying cirrhosis. Contacted Satinder Bales PA-C with interventional radiology via [facility]. Planning to hopefully perform paracentesis today. Allergies Allergy/AdvReac Type Severity Reaction Status Date / Time codeine AdvReac Severe upset Verified 11/07/24 11:30 stomach Home Medications Medication Instructions Recorded Confirmed Type albuterol sulfate 90 mcg/actuation 2 puff inhalation Q4 PRN Wheezing 01/08/19 11/07/24 History aerosol inhaler omeprazole 40 mg capsule,delayed 40 mg PO DAILY 10/30/19 11/07/24 History release cyclobenzaprine 5 mg tablet 5 mg PO DAILY PRN MUSCLE SPASMS 03/28/21 11/07/24 History multivitamin 1 tab PO DAILY 12/29/21 11/07/24 History thiamine HCl (vitamin B1) 100 mg 100 mg PO DAILY 12/29/21 11/07/24 History tablet bisacodyl 5 mg tablet,delayed 10 mg (2 x 5 mg) PO HS #60 tabs 12/15/22 11/07/24 Rx release (Dulcolax (bisacodyl)) furosemide 20 mg tablet 20 mg PO QAM #30 tabs 12/15/22 11/07/24 Rx polyethylene glycol 3350 17 gram 17 g PO BID #60 doses 12/15/22 11/07/24 Rx oral powder packet (Miralax) spironolactone 100 mg tablet 100 mg PO QAM #30 tabs 12/15/22 11/07/24 Rx fluticasone fur. 100 mcg-umeclid 1 inh inhalation QAM 11/07/24 11/07/24 History 62.5 mcg-vilant 25 mcg inhalat.powder (Trelegy Ellipta) Past Med/Surg History Problem List (Updated 11/07/24 @ 14:10 by Sarah Love PA-C) Chronic constipation Low back pain Tobacco use disorder Ascites Decompensated cirrhosis Encounter for pre-operative examination Abdominal pain (Acute) Total bilirubin, elevated (Acute) Pancytopenia (Acute) Abdominal pain Injury of left leg (Acute) Encounter for pre-operative examination Ascites Alcoholic cirrhosis (Acute) Melena Acute upper gastrointestinal bleeding (Acute) Hx of esophageal varices (Acute) DVT prophylaxis Portal hypertension COPD (chronic obstructive pulmonary disease) Hepatitis C treated with harvoni in [facility] pt is now negative Transaminitis Thrombocytopenia Cirrhosis of liver (Chronic 11/21/12) Medical History Alcohol abuse Alcoholic cirrhosis Hypokalemia Anxiety and depression Surgical History History of total right hip replacement History of tubal ligation Family History Mother Cervical cancer Social History Smoking Status: Current some day smoker Tobacco Type: Cigarettes Cigarettes Per Day: recently quit; Second Hand Exposure: No; Do You Dip or Chew Tobacco: No; Hx Alcohol Use: No Hx Substance Use: No Preferred Language: Trinidadian Communication Ability: Effective Trimmer Hand Required: No Beliefs That Will Affect Care: None marital status: Current Living Situation: Spouse Feels Safe at Home: Yes Assistive Devices: Oxygen - at Night Review of Systems Review of Systems: At least ten systems reviewed and negative, except as noted in the HPI. Physical Exam Physical Exam: General: NAD, laying down in bed, extremely pleasant, conversing appropriately. A+Ox3. HEENT: Normocephalic, atraumatic. Conjunctivae normal. External ear and nose normal, oropharynx normal. Respiratory: Normal respiratory effort, lungs clear to auscultation bilaterally. No accessory muscle use. Cardiovascular: Regular rate, rhythm. Normal peripheral pulses. No BLE edema. BLE compression stockings in place. Abdomen/GI: Diminished bowel sounds. + firm abdominal distention. No TTP of abdomen. Extremities/Musculoskeletal: Extremities motor strength intact, actively moves all extremities. Results & Data Results & Data Vital Signs (Past 12 Hours) Vital Signs Temp Pulse Pulse Resp BP BP Pulse Ox 11/07/24 09:46 77 18 93 11/07/24 09:43 85 11/07/24 09:17 36.8 C 92 H 18 113/69 92 11/07/24 09:14 76 18 117/86 94 O2 Del Method 11/07/24 09:46 Room Air 11/07/24 09:43 11/07/24 09:17 Room Air 11/07/24 09:14 Room Air Laboratory Results Short CBC 11/07/24 Range/Units 09:37 WBC 10.56 (4.8-10.8) K/ul Hgb 11.7 L (12.0-16.0) g/dl Hct 36.5 L (37.0-47.0) % Plt Count 176 (130-400) K/uL BMP 11/07/24 09:37 Sodium 136 Potassium 3.4 L Chloride 107 Carbon Dioxide 22 BUN 9 Creatinine 0.78 Glucose 106 H Calcium 8.8 Liver Function 11/07/24 Range/Units 09:37 Total Bilirubin 2.1 H (0.2-1.0) mg/dl AST 47 H (13-39) U/L ALT 20 (7-52) U/L Alkaline Phosphatase 123 H (34-104) U/L Albumin 3.3 L (3.4-5.0) gm/dl Urine 11/07/24 Range/Units 09:35 Urine Color Yellow Urine Appearance Clear (Clear) Urine pH 6.0 (4.5-7.5) Ur Specific [place] 1.004 (1.000-1.030) Urine Protein Negative (Negative) Urine Glucose (UA) Negative (Negative) Diagnostic Findings Chest X-Ray 11/07/24 09:46 XR chest 1V portable CLINICAL HISTORY: ab swelling/sob, h/o COPD/cirrhosis COMPARISON STUDY: 12/09/2022 FINDINGS: Heart size and pulmonary vasculature are normal. No effusion or consolidation. IMPRESSION: No pneumonia seen. ACT 112: Negative or not required by law. Electronically signed by: Sterling Malloy M.D. 11/07/2024 10:14 AM Medications Administered Discontinued Medications Fentanyl Citrate (Fentanyl Citrate Pf 100 Mcg/2 Ml Vial) 25 mcg IV NOW STA Stop: 11/07/24 09:47 Last Admin: 11/07/24 09:56 Dose: 25 mcg Documented By: MPD Code Status & VTE Plan Code Status FULL CODE (1) Ascites Ascites type: other type Qualified Code(s): R18.8 - Other ascites (6) COPD (chronic obstructive pulmonary disease) COPD type: unspecified COPD Qualified Code(s): J44.9 - Chronic obstructive pulmonary disease, unspecified (7) Low back pain Chronicity: acute Back pain laterality: unspecified Sciatica presence: unspecified whether sciatica present Qualified Code(s): M54.50 - Low back pain, unspecified
--- NOTE | 2024-11-07 11:41 | Electrocardiogram Report ---
Test Reason : Blood Pressure : */* mmHG Vent. Rate : 83 BPM Atrial Rate : 83 BPM P-R Int : 144 ms QRS Dur : 90 ms QT Int : 408 ms P-R-T Axes : 77 17 61 degrees QTcB Int : 479 ms Sinus rhythm with Premature atrial complexes Otherwise normal ECG When compared with ECG of 09-Dec-2022 10:07, Premature atrial complexes are now Present Confirmed by Fish Dailey ([id number]) on 11/07/2024 11:41:00 AM Referred By: Musa Gilbert Confirmed By: Fish Dailey
[2024-11-07] MEDS: POTASSIUM CHLORIDE CRTAB 20 MEQ TABCR PO STA (12:30)
[2024-11-07] MEDS: KETOROLAC TROMETHAMINE 15 MG/ML VIAL IV ONE (12:32)
[2024-11-07] MEDS: LIDOCAINE 5% 1 PATCH TD ONE (12:37)
--- OUTSIDE RECORDS SUMMARY | 2024-11-07 12:38 | External Medical Summary ---
Author Name Unknown Address Unknown Organization [facility] [address] [facility] [address] [facility] Report Ordering Provider Test Date Status LAWRENCE EVANS 10/26/2024 08:53:00 Final Observation Date Value Abnormality Reference (Units ) Status Iron 10/26/2024 08:53:00 65 33-151 (ug /dL) Final Iron-binding capacity 10/26/2024 08:53:00 253 250-425 (ug/dL) Final Transferrin Sat % 10/26/2024 08:53:00 26 15 -55 (%) Final Performing Location [facility] [address] [facility] [id number]
--- OUTSIDE RECORDS SUMMARY | 2024-11-07 12:38 | External Medical Summary | Summary of Care ---
Author Name Unknown Organization [facility] Address [address] [place] [address] Phone [phone] Care Team Providers Care Coding Specialist Name Role Phone Unavailable Primary Care Provider Unavailabl e Reason for Visit * Reason Comments Outpatient Testing Encounter Details Date Type Department Care Team (Late st Contact Info) Description 10/26/2024 9:00 AM EST Laboratory Laboratory [facility] [address] [place] [phone] [facility] [address] [place] [address] Iron deficiency anemia due to chronic blood loss Allergies Active Allergy Reactions Criticality Noted Date Comments Codeine Nausea/vomiting 02/08/2017 documented as of this encounter (statuses as of 10/26/2024) Medications potassium chloride ER 10 MEQ TBCR Take 1 Tablet by mouth daily as needed. Active oxygen IN GAS Use 2 L/min(Oxygen ) as directed. At night Active polyethylene glycol 3350 119 gram PO POWD Take 119 g by mouth every evening. As needed Active Docusate Sodium 100 MG Oral Capsule (Colace) Take 1 Capsule by mouth 2 times a day as needed. Active Multi Complete Oral Capsule Take by mouth 1 Capsule in the morning. Active Iron 325 (65 Fe) MG Oral Tablet Take by mouth . Active Cyclobenzaprine HCl 5 MG Oral Tablet (Flexeril)Indicatio ns:Acute bilateral thoracic back pain TAKE 1 TABLET BY MOUTH ONCE DAILY NEEDED FOR MUSCLE SPASM 90 Tablet 1 2 Active hydrOXYzine HCl 25 MG Oral TabletIndications:A nxiety Take 1 Tablet by mouth every night at bedtime. 90 Tablet 3 2 Active Fluticasone-Umeclid in-Vilant 100-62.5-25 MCG/ACT Aerosol Powder Breath Activated (Trelegy Ellipta) Inhale 1 Puff by mouth in the morning. Rinse mouth and gargle with water after use.. 180 Blister Dosing Unit 3 4 Active Omeprazole 40 MG Oral Capsule Delayed Release (PriLOSEC)Indicatio ns:Secondary esophageal varices with bleeding (HCC) One tab each before first meal daily. 90 Capsule 3 4 Active Spironolactone 50 MG Oral Tablet (Aldactone) Take 1 Tablet by mouth in the morning. 30 Tablet 2 4 Active Albuterol Sulfate HFA 108 (90 Base) MCG/ACT Inhalation Aerosol SolutionIndications :COPD, group D, by GOLD 2017 classification (HCC) INHALE 2 PUFFS BY MOUTH EVERY 4 HOURS NEEDED FOR WHEEZING 36 g 1 5 Active documented as of this encounter (statuses as of 10/26/2024) Active Problems Problem Noted Date Diagnosed Date Alcoholic cirrhosis of liver without ascites 09/2023 Other pancytopenia 10/22/2023 Family history of lung cancer 06/07/2023 Overview (06/07/2023): Sister age 65 from lung cancer (Smoker) Medical home patient encounter 01/04/2023 Alcohol abuse, uncomplicated 10/18/2022 Neutropenia 08/19/2022 Iron deficiency anemia 02/02/2022 Nocturnal hypoxemia 08/25/2021 COPD, group B, by GOLD 2017 classification 12/02 Overview: Per COPD GOLD Classification Alcohol use, unspecified with intoxication, unsp ecified 10/25/2019 Protein-calorie malnutrition 10/25/2019 History of tobacco use 12/17/2018 Moderate episode of recurrent major depressive d isorder 10/26/2018 Thrombocytopenia 08/25/2018 History of alcohol abuse 08/25/2018 Portal hypertension 08/25/2018 Cirrhosis of liver 02/08/2017 Hepatitis C antibody test positive 11/29/2016 Overview (11/29/2016): HCV treated; SVR confirmed 11/19/2016 documented as of this encounter (statuses as of 10/26/2024) Resolved Problems Problem Noted Date Diagnosed Date Resolved Date Other disorders of bilirubin metabolism 12/27/2022 10/22/2023 COPD, severity to be determined 10/26/2018 12/06/2019 Overview: Per COPD GOLD Classification Chronic hepatitis C without hepatic coma 05/11/2016 11/29/2016 Overview (11/29/2016): HCV treated; SVR confirmed 11/19/2016 documented as of this encounter (statuses as of 10/26/2024) Immunizations Name Administration Dates Next Due COVID-19 mRNA, LNP-s, No Pre serve, 2-Dose Series (Zhitu) 09/08/2021,01/10/2021,12/20/2020 COVID-19, LNP-s, No Preserve , Ignacio-sucrose, Ages 12+ (Zhitu) 03/22/2022 COVID-19, MRNA-LNP, 24-25, P R, 30MCG/0.3ML, IM, 12YRS AND ABOVE (M2GirnatQiro) 05/31/2024 COVID-19, MRNA-LNP, PF, 30 M CG/0.3 mL, 12 YRS AND ABOVE, IM (Room ChoiceirnatQiro) 07/11/2023 Hepatitis B, 20+ yrs 05/11/2016 Pneumococcal Conjugate Vacc, 13 Valent (Prevnar) 02/17/2022 Pneumococcal Polysaccharide PPV23 (Pneumovax) 05/19/2019 Seasonal Influenza, PF, 6 M & above, IM , (FluLaval or Fluzone) 05/12/2023,08/17/2022,05/01/2021,04/16,05/19/2019,08/25/2018 Seasonal Influenza, Trivalen t, (IIV3), PF, (Fluzone) 05/31/2024 TDAP (age 10 and older)(Boostrix) 04/16/2020 Zoster Vaccine Recombinant (Shingrix) 09/15/2020 ,04/16/2020 documented as of this encounter Social History Tobacco Use Types Packs/Day Years Used Date Smoking Tobacco: Every Day Cigarettes 1 38 Started: 12/02/1984; Last attempted to quit: 12/02/2022 Smokeless Tobacco: Never Comments:HX of smoking 1.5 p pd . 2 cpd. Smoker 12/12/23. Alcohol Use Standard Drinks/Week Comments Not Currently 0 (1 standard drink = 0.6 oz pure alcohol) hx of ETOH use: last used 10/25/2022 PHQ-2 Answer Date Recorded PHQ Adult Total Score 0 09/14/2023 Hunger Vital Sign Answer Date Recorded Within the past 12 months, y ou worried that your food would run out before you got the money to buy more. Never true 12/22/19 23 Within the past 12 months, t he food you bought just didn't last and you didn't have money to get more. Never true 12/21/2022 Comments No Sex and Gender Information Value Date Recorded Sex Assigned at Not on file Legal Sex Female 4:19 PM EDT Gender Identity Not on file Sexual Orientation Not on file documented as of this encounter Plan of Treatment Upcoming Encounters Date Type Department Care Team (Late st Contact Info) Description 10/30/2024 11:30 AM EDT Office Visit Gastroenterology, [facility] [address] [address] Musa Gilbert CRNP [address] [place] [address] 11/23/2024 10:15 AM EDT Imaging Radiology [facility] 1st Floor, [place] [address] [place] [phone] 01/31/2025 9:30 AM EDT Laboratory Laboratory, [facility] [address] [place] [address] Bhavesh Bruce [facility] [address] [place] [address] 02/07/2025 11:30 AM EDT [facility] [address] [place] [address] Crystal Gilbert CRNP [address] [facility] [place] [address] 04/09/2025 8:40 AM EDT Office Visit Family Practice [facility] [address] [place] [address] Sumi Dailey DO [address] [place] [address] 04/30/2025 11:30 AM EDT Office Visit Pulmonary Medicine, [facility] 132 [facility] [place] [address] Vlad Olmos [facility] [address] [facility] [place] [address] Pending Results Name Type Priority Associated Diagnoses Date /Time IRON SCREEN, INCLUDING TIBC Lab STAT Iron deficiency anemia due to chronic blood loss 10/26/2024 8:53 AM EST FERRITIN Lab STAT Iron deficiency anemia due to chronic blood loss 10/26/2024 8:53 AM EST Scheduled Procedures Name Priority Associated Diagnoses Date/Ti me ESOPHAGOGASTRODUODENOSCOPY ( EGD), FLEXIBLE, TRANSORAL, DIAGNOSTIC Recall Cirrhosis (HCC) Esophageal varices (HCC) COLONOSCOPY FLEXIBLE PROXIMAL DIAGNOSTIC Recall Screen for colon cancer Health Maintenance Due Date Last Done Comments DISCUSS TOBACCO CESSATION (REFER TO SMARTSET #0301) 1964 Cologuard 2009 Fecal Occult Blood Test 2009 Sigmoidoscopy 2009 COVID-19 Vaccine ( season) 2024 05/31/2024, 07/11/2023, 03/22/2022, Additional history exists Depression Monitoring 09/14/2024 09/14/2023 Lipid Panel 10/22/2024 10/23/2019 O2 ASSESSMENT COMPLETED IN PAST YEAR FOR COPD 02/07/2025 02/08/2024 Mammogram 02/16/2025 02/17/2024, 01/21, 02/15/2023, Additional history exists Pneumococcal Vaccine: 50+ Years (3 of 3 - PCV20 or PCV21) 02/17/2027 02/17/2022, 05/19/2019 Pap Smear 09/06/2027 09/06/2024, 10/21, 11/10/2020 Cervical Cancer Screening 09/06/2029 HPV/Co-Test 09/06/2029 09/06/2024 DTap/Tdap Vaccines (2 - Td or Tdap) 04/16/2030 04/16/2020 Colonoscopy 12/14/2032 12/14/2022, 06/0 02/2021, 01/26/2021, Additional history exists Colorectal Cancer Screening 12/14/2032 Alpha-1 Antitrypsin Completed 10/26/2018 Zoster Vaccines Completed 09/15/2020, 04/16/2020 Lung Cancer Screening Completed 11/21/2023 , 11/15/2022, 02/09/2022, Additional history exists Influenza Vaccine (FLU shot) Completed 05/2024, 05/31/2024, 05/12/2023, Additional history exists HPV (Gardasil) Vaccine Aged Out No lo nger eligible based on patient's age to complete this topic MENINGOCOCCAL (MENACTRA/MENVEO) Aged Out No longer eligible based on patient's age to complete this topic Meningitis B Vaccine (Bexsero/Trumemba) Aged Out No longer eligible based on patient's age to complete this topic documented as of this encounter Medical Devices Not on filedocumented as of this encounter Procedures Procedure Name Priority Date/Time Associated Diagnosis Comments DIFFERENTIAL, AUTOMATED STAT 10/26/2024 8:53 AM EST Iron deficiency anemia due to chronic blood loss CBC STAT 10/26/2024 8:53 AM EST Iron deficiency anemia due to chronic blood loss CBC STAT 10/26/2024 8:53 AM EST Iron deficiency anemia due to chronic blood loss DIFFERENTIAL, TECHNOLOGIST REVIEW Routine 10/26/2024 8:53 AM EST Iron deficiency anemia due to chronic blood loss documented in this encounter Results * (ABNORMAL) DIFFERENTIAL, TECHNOLOGIST REVIEW (10/26/2024 8:53 AM EST) WBC 9.30 4.00 - 10.80 K/uL 10/26/2024 9:17 AM [facility] 56-02 Neutrophils % 78.0(H) 40.0 - 75.0 % 10/26/2024 9:17 AM [facility] 56-02 Lymphocytes % 6.0(L) 18.0 - 42.0 % 10/26/2024 9:17 AM [facility] 56-02 Monocytes % 12.0(H) 1.0 - 11.0 % 10/26/2024 9:17 AM [facility] 56-02 Eosinophils % 2.0 0.0 - 6.0 % 10/26/2024 9:17 AM [facility] 56-02 Basophils % 1.0 0.0 - 2.0 % 10/26/2024 9:17 AM [facility] 56-02 Metamyelocytes % 1.0(H) <=0.0 % 10/27/19 9:17 AM [facility] 56-02 Absolute Neutrophils 7.25 1.80 - 7.70 K/uL 10/26/2024 9:17 AM [facility] 56-02 Absolute Lymphocytes 0.56(L) 1.00 - 4.80 K/uL 10/26/2024 9:17 AM [facility] 56-02 Absolute Monocytes 1.12(H) 0.00 - 1.10 K/uL 10/26/2024 9:17 AM [facility] 56-02 Absolute Eosinophils 0.19 0.00 - 0.70 K/uL 10/26/2024 9:17 AM [facility] 56-02 Absolute Basophils 0.09 0.00 - 0.20 K/uL 10/26/2024 9:17 AM [facility] 56-02 Absolute Metamyelocytes 0.09(H) <=0.00 K/uL 10/26/2024 9:17 AM [facility] 56-02 nRBCs 10/26/2024 9:17 AM [facility] 56-02 Blood Venous blood specimen / Unknown Venipuncture / Unknown 10/26/2024 8:53 AM EST 10/26/2024 8:53 AM EST us Crystal CASIANO LAB BLOOD ORDERABLES Fi nal Result [facility] [address] [place] [address] * DIFFERENTIAL, AUTOMATED (10/26/2024 8:53 AM EST) Blood Venous blood specimen / Unknown Venipuncture / Unknown 10/26/2024 8:53 AM EST 10/26/2024 8:53 AM EST us Crystal CASIANO LAB BLOOD ORDERABLES Fi nal Result [facility] [address] [place] [address] * (ABNORMAL) CBC (10/26/2024 8:53 AM EST) WBC 9.30 4.00 - 10.80 K/uL 10/26/2024 9:17 AM [facility] 56 RBC 3.07 3.85 - 5.15 M/uL 10/26/2024 9:17 AM [facility] 56 HGB 10.3(L) 12.0 - 15.3 g/dL 10/26/2024 9:17 AM [facility] 56 HCT 31.9(L) 36.0 - 45.2 % 10/26/2024 9:17 AM [facility] 56 MCV 103.9 81.5 - 97.5 fL 10/26/2024 9:17 AM [facility] 56- MCH 33.6 27.0 - 34.0 pg 10/26/2024 9:17 AM [facility] 56- MCHC 32.3 32.0 - 36.0 g/dL 10/26/2024 9:17 AM [facility] 56 RDW 17.9 11.5 - 15.5 % 10/26/2024 9:17 AM [facility] 56 PLT 61(L) 140 - 400 K/uL 10/26/2024 9:17 AM EST [facility] 56 MPV 11.8 6.6 - 11.1 fL 10/26/2024 9:17 AM EST [facility] Blood Venous blood specimen / Unknown Venipuncture / Unknown 10/26/2024 8:53 AM EST 10/26/2024 8:53 AM EST us Crystal CASIANO LAB BLOOD ORDERABLES Fi nal Result [facility] [address] [place] [address] documented in this encounter Visit Diagnoses Diagnosis Iron deficiency anemia due to chronic blood loss Iron deficiency anemia secondary to blood loss (chronic) documented in this encounter
--- OUTSIDE RECORDS SUMMARY | 2024-11-07 12:38 | External Medical Summary | Summary of Care ---
Author Name Unknown Organization [facility] Address [address] [place] [address] Phone [phone] Care Team Providers Care Senior Vice President & General Counsel Name Role Phone Unavailable Primary Care Provider Unavailabl e Encounter Details Date Type Department Care Team (Latest Contact Info) Description 09/11/2024 2:08 PM EST - 09/11/2024 11:59 PM EST Hospital Encounter Radiology Film File [address] [place], [place] [id number] Arrived Discharge Disposition: Home - Self Care Allergies Active Allergy Reactions Criticality Noted Date Comments Codeine Nausea/vomiting 02/08/2017 documented as of this encounter (statuses as of 09/12/2024) Medications potassium chloride ER 10 MEQ TBCR [...] meal daily. 90 Capsule 3 4 Active Albuterol Sulfate HFA 108 (90 Base) MCG/ACT Inhalation Aerosol SolutionIndications :COPD, group D, by GOLD 2017 classification (HCC) INHALE 2 PUFFS BY MOUTH EVERY 4 HOURS NEEDED FOR WHEEZING 36 g 1 4 Active Spironolactone 50 MG Oral Tablet (Aldactone) Take 1 Tablet by mouth in the morning. 30 Tablet 2 4 Active documented as of this encounter (statuses as of 09/12/2024) Active Problems Problem Noted Date Diagnosed Date [...] as of this encounter (statuses as of 09/12/2024) Resolved Problems Problem Noted Date Diagnosed Date Resolved Date Other disorders of bilirubin metabolism 12/27/2022 10/22/2023 COPD, severity to be determined 10/26/2018 12/06/2019 Overview: Per COPD GOLD Classification Chronic hepatitis C without hepatic coma 05/11/2016 11/29/2016 Overview (11/29/2016): HCV treated; SVR confirmed 11/19/2016 documented as of this encounter (statuses as of 09/12/2024) Immunizations Name Administration Dates Next Due COVID-19 mRNA, LNP-s, No Pre serve, 2-Dose Series (DS Digitale Seiten) 09/08/2021,01/10/2021,12/20/2020 COVID-19, LNP-s, No Preserve , Ignacio-sucrose, Ages 12+ (DS Digitale Seiten) 03/22/2022 COVID-19, MRNA-LNP, 24-25, P R, 30MCG/0.3ML, IM, 12YRS AND ABOVE (ConduitirnatThoroughCare) 05/31/2024 COVID-19, MRNA-LNP, PF, 30 M CG/0.3 mL, 12 YRS AND ABOVE, IM (InSync Software) 07/11/2023 Hepatitis B, 20+ yrs 05/11/2016 Pneumococcal [...] Care Team (Late st Contact Info) Description 10/02/2024 12:00 PM EST Office Visit [address]monary Medicine, [address] [place] [address] Vlad Olmos MD [address] [facility] [place] [address] 10/17/2024 9:00 AM EST Office Visit [address]enterology, [address] [place] [address] Musa Gilbert CRNP [address] [facility] [place] [address] 10/22/2024 10:00 AM EST Laboratory Laboratory, [address] [place] [phone] Bhavesh Bruce [address] [place] [address] 01/31/2025 9:30 AM EDT Laboratory Laboratory, [address] [place] [phone] Bhavesh Bruce [facility] [place] [address] 02/07/2025 11:30 AM EDT [facility] [address] [place] [phone] Crystal Gilbert CRNP [address] [facility] [place] [address] 04/09/2025 8:40 AM EDT Office Visit Family Practice [facility] [place] [address] Sumi Dailey DO 132 [facility] [place] [address] Scheduled Procedures Name Priority Associated Diagnoses Date/Ti me ESOPHAGOGASTRODUODENOSCOPY ( EGD), FLEXIBLE, TRANSORAL, DIAGNOSTIC Recall Cirrhosis (HCC) Esophageal varices (HCC) COLONOSCOPY FLEXIBLE PROXIMAL DIAGNOSTIC Recall Screen for colon cancer Health Maintenance Due Date Last Done Comments DISCUSS TOBACCO CESSATION (REFER TO SMARTSET #0448) 1964 HPV/Co-Test 1994 Cologuard 2009 Fecal Occult Blood Test 2009 Sigmoidoscopy 2009 Cervical Cancer Screening 11/11/2023 Pap Smear 11/11/2023 11/10/2020, 11/10/2020 COVID-19 Vaccine ( season) 2024 05/31/2024, 07/11/2023, 03/22/2022, Additional history exists Depression Monitoring 09/14/2024 09/14/2023 Lipid Panel 10/22/2024 10/23/2019 O2 ASSESSMENT COMPLETED IN PAST YEAR FOR COPD 02/07/2025 02/08/2024 Mammogram 02/16/2025 02/17/2024, 01/21, 02/15/2023, Additional history exists Pneumococcal Vaccine: 50+ Years (3 of 3 - PCV20 or PCV21) 02/17/2027 02/17/2022, 05/19/2019 DTap/Tdap Vaccines (2 - Td or Tdap) 04/16/2030 04/16/2020 Colonoscopy 12/14/2032 12/14/2022, 06/02/2021, 01/26/2021, Additional history exists Colorectal Cancer Screening [...] Procedure Name Priority Date/Time Associated Diagnosis Comments DERM EXAM - DERM (IMAGES ONLY, NO REPORT) Routine 09/11/2024 2:08 PM EST Open comedone Seborrheic keratosis documented in this encounter Results * DERM EXAM - DERM (IMAGES ONLY, NO REPORT) (09/11/2024 2:08 PM EST) Narrative Scheduling, Silent - 09/11/2024 2:08 PM EST This is an imaging study not interpreted or resulted by a liveBookser or [employer] contracted radiologist. us Jeaneth Pérez PA-C RADIOLOGY (RAD GENERAL ) Final Result documented in this encounter
--- OUTSIDE RECORDS SUMMARY | 2024-11-07 12:38 | External Medical Summary | Summary of Care ---
Author Name Unknown Organization [facility] Address [address] [place] [address] Phone [phone] Care Team Providers Care Youth Care Specialist Name Role Phone Unavailable Primary Care Provider Unavailabl e Reason for Visit * Reason Onset Date Comments Appointment 09/25/2024 Encounter Details Date Type Department Care Team (Late st Contact Info) Description 09/25/2024 Telephone Family Practice [facility] [address] [facility] [address] Lila Gallo CRNP [address] [facility] [address] Appointment Allergies Active Allergy Reactions Criticality Noted Date Comments Codeine Nausea/vomiting 02/08/2017 documented as of this encounter (statuses as of 09/28/2024) Medications potassium chloride ER 10 MEQ TBCR [...] as of this encounter (statuses as of 09/28/2024) Active Problems Problem Noted Date Diagnosed Date [...] as of this encounter (statuses as of 09/28/2024) Resolved Problems Problem Noted Date Diagnosed Date Resolved Date Other disorders of bilirubin metabolism 12/27/2022 10/22/2023 COPD, severity to be determined 10/26/2018 12/06/2019 Overview: Per COPD GOLD Classification Chronic hepatitis C without hepatic coma 05/11/2016 11/29/2016 Overview (11/29/2016): HCV treated; SVR confirmed 11/19/2016 documented as of this encounter (statuses as of 09/28/2024) Immunizations Name Administration Dates Next Due COVID-19 mRNA, LNP-s, No Pre serve, 2-Dose Series (UNI5) 09/08/2021,01/10/2021,12/20/2020 COVID-19, LNP-s, No Preserve , Ignacio-sucrose, Ages 12+ (UNI5) 03/22/2022 COVID-19, MRNA-LNP, 24-25, P R, 30MCG/0.3ML, IM, 12YRS AND ABOVE (High Side SolutionsirBeaumaris Networks) 05/31/2024 COVID-19, MRNA-LNP, PF, 30 M CG/0.3 mL, 12 YRS AND ABOVE, IM (CellVirnatMeritBuilder) 07/11/2023 Hepatitis B, 20+ yrs 05/11/2016 Pneumococcal [...] on file documented as of this encounter Miscellaneous Notes * Telephone Encounter - Crystal Bhat OSA - 09/28/2024 11:18 AM EST Left 3rd message - sending MyG * Telephone Encounter - Crystal Bhat OSA - 09/27/2024 12:57 PM EST Left second message for PAP * Telephone Encounter - Crystal Bhat OSA - 09/26/2024 10:49 AM EST LM for pt to call back and schedule pap * Telephone Encounter - Lila Gallo CRNP - 09/25/2024 4:42 PM EST Please schedule 1 year pap documented in this encounter Plan of Treatment Upcoming Encounters Date Type Department Care Team (Late st Contact Info) Description 10/02/2024 12:00 PM EST Office Visit Pulmonary Medicine, [facility] [address] [facility] [place] [address] Vlad Olmos MD [address] [facility] [place] [address] 10/17/2024 9:00 AM EST Office Visit Gastroenterology, [facility] [address] [facility] [place] [address] Musa Gilbert CRNP 132 [facility] [place] [address] 10/22/2024 10:00 AM EST Laboratory Laboratory, [facility] [address] [facility] [place] [phone] BruceBhavesh bragg [facility] [address] [facility] [place] [address] 01/31/2025 9:30 AM EDT Laboratory Laboratory, [facility] 132 [facility] [place] [phone] BruceBhavesh bragg [facility] [address] [facility] [place] [address] 02/07/2025 11:30 AM EDT Office Visit Hematology/Oncology [facility] [address] [place] [phone] Crystal Gilbert CRNP [address] [place] [address] [place] [address] 04/09/2025 8:40 AM EDT Office Visit Family Practice [facility] [address] [address] Sumi Dailey, DO [address] [place] [address] Scheduled Procedures Name Priority Associated Diagnoses Date/Ti me ESOPHAGOGASTRODUODENOSCOPY ( EGD), FLEXIBLE, TRANSORAL, DIAGNOSTIC Recall Cirrhosis (HCC) Esophageal varices (HCC) COLONOSCOPY FLEXIBLE PROXIMAL DIAGNOSTIC Recall Screen for colon cancer Health Maintenance Due Date Last Done Comments DISCUSS TOBACCO CESSATION (REFER TO SMARTSET #4981) 1965 Cologuard 2009 Fecal Occult Blood Test [...]
--- OUTSIDE RECORDS SUMMARY | 2024-11-07 12:38 | External Medical Summary ---
Author Name Unknown Address Unknown Organization K01:[facility] [place] [address] [facility] [address] Laboratory Report Ordering Provider Test Date Status LAWRENCE EVANS 10/26/2024 08:53:00 Final Observation Date Value Abnormality Reference (Units ) Status Ferritin 10/26/2024 08:53:00 347 Above high normal 13 -150 (ng/mL) Final Postmenopausal women have hi gher ferritin levels than pre-menopausal women. The above reference interval is based on pre-menopausal women. Performing Location LABORATORY [facility] - [address] [place] [address]
--- OUTSIDE RECORDS SUMMARY | 2024-11-07 12:38 | External Medical Summary | Summary of Care ---
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 Role Phone Unavailable Primary Care Provider Unavailabl e Reason for Visit * Reason Comments eRx-Medication Refill Encounter Details Date Type Department Care Team (Late st Contact Info) Description 09/14/2024 Refill [facility] Practice [facility] [address] [place] [address] Etienne Mcguire, [address] [place] [address] COPD, group D, by GOLD 2017 classification (HCC) Allergies Active Allergy Reactions Criticality Noted Date Comments Codeine Nausea/vomiting 02/08/2017 documented as of this encounter (statuses as of 09/17/2024) Medications potassium chloride ER 10 MEQ TBCR Take 1 Tablet by mouth daily as needed. Active oxygen IN GAS Use 2 L/min(Oxyge n) as directed. At night Active polyethylene glycol [...] Active Cyclobenzaprine HCl 5 MG Oral Tablet (Flexeril)Indicati ons:Acute bilateral thoracic back pain TAKE 1 TABLET BY MOUTH ONCE DAILY NEEDED FOR MUSCLE SPASM 90 Tablet 1 06/10/20 22 Active hydrOXYzine HCl 25 MG Oral TabletIndications: Anxiety Take 1 Tablet by mouth every night at bedtime. 90 Tablet 3 08/17/20 22 Active Fluticasone-Umecli din-Vilant 100-62.5-25 MCG/ACT Aerosol Powder Breath Activated (Trelegy Ellipta) Inhale 1 Puff by mouth in the morning. Rinse mouth and gargle with water after use.. 180 Blister Dosing Unit 3 12/12/19 24 Active Omeprazole 40 MG Oral Capsule Delayed Release (PriLOSEC)Indicati ons:Secondary esophageal varices with bleeding (HCC) One tab each before first meal daily. 90 Capsule 3 04/04/20 24 Active Spironolactone 50 MG Oral Tablet (Aldactone) Take 1 Tablet by mouth in the morning. 30 Tablet 2 07/24/20 24 Active Albuterol Sulfate HFA 108 (90 Base) MCG/ACT Inhalation Aerosol SolutionIndication s:COPD, group D, by GOLD 2017 classification ([facility]) INHALE 2 PUFFS BY MOUTH EVERY 4 HOURS NEEDED FOR WHEEZING 36 g 1 09/17/19 25 Active Albuterol Sulfate HFA 108 (90 Base) MCG/ACT Inhalation Aerosol SolutionIndication s:COPD, group D, by GOLD 2017 classification ([facility]) INHALE 2 PUFFS BY MOUTH EVERY 4 HOURS NEEDED FOR WHEEZING 36 g 1 07/11/20 24 025 Discontinued documented as of this encounter (statuses as of 09/17/2024) Active Problems Problem Noted Date Diagnosed Date [...] as of this encounter (statuses as of 09/17/2024) Resolved Problems Problem Noted Date Diagnosed Date Resolved Date Other disorders of bilirubin metabolism 12/27/2022 10/22/2023 COPD, severity to be determined 10/26/2018 12/06/2019 Overview: Per COPD GOLD Classification Chronic hepatitis C without hepatic coma 05/11/2016 11/29/2016 Overview (11/29/2016): HCV treated; SVR confirmed 11/19/2016 documented as of this encounter (statuses as of 09/17/2024) Immunizations Name Administration Dates Next Due COVID-19 mRNA, LNP-s, No Pre serve, 2-Dose Series ([employer]) 09/08/2021,01/10/2021,12/20/2020 COVID-19, LNP-s, No Preserve , Ignacio-sucrose, Ages 12+ (Pfizer) 03/22/2022 COVID-19, MRNA-LNP, 24-25, P R, 30MCG/0.3ML, IM, 12YRS AND ABOVE (Yabidu-Comirnaty) 05/31/2024 COVID-19, MRNA-LNP, PF, 30 M CG/0.3 mL, 12 YRS AND ABOVE, IM ([employer]Comirnat[employer]et[employer]) 07/11/2023 Hepatitis B, 20+ yrs 05/11/2016 Pneumococcal [...] encounter Miscellaneous Notes * Telephone Encounter - Etienne Mcguire DO - 09/17/2024 11:03 AM ESTSigned Prescriptions: Disp Refills Albuterol Sulfate HFA 108 (90 Base) MCG/AC*36 g 1 Sig: INHALE 2 PUFFS BY MOUTH EVERY 4 HOURS NEEDED FOR WHEEZING Authorizing Provider: ETIENNE MCGUIRE * Telephone Encounter - rBunilda Gandhi MED ASSIST - 09/17/2024 8:11 AM EST Pending Prescriptions: Disp Refills Albuterol Sulfate HFA 108 (90 Base) MCG/AC*36 g 1 Sig: INHALE 2 PUFFS BY MOUTH EVERY 4 HOURS NEEDED FOR WHEEZING * Telephone Encounter - Brunilda Gandhi MED ASSIST - 09/17/2024 8:11 AM EST Did you pend patient's preferred pharmacy and medication before forwarding?yes [facility] [address] [place] [address] Pending Prescriptions: Disp Refills Albuterol Sulfate HFA 108 (90 Base) MCG/A*36 g 1 Sig: INHALE 2 PUFFS BY MOUTH EVERY 4 HOURS NEEDED FOR WHEEZING Last Visit: 09/06/2024 (in office), Visit date not found (telemedicine) Next Visit: 04/09/2025 If no future appointments scheduled, and last appointment is greater than a year ago, please schedule patient for a follow-up appointment Last date the medication was ordered: Is this request for a controlled substance?No Urine Drug Screen:No results found for this or any previous visit. Patient Phone Numbers Labs: Lab Results Component Value Date/Time CREAT 0.5 08/02/2024 10:10 AM CREAT 0.7 08/27/2020 08:32 AM POTASSIUM 3.8 08/02/2024 10:10 AM POTASSIUM 3.9 08/27/2020 08:32 AM TSH 5.12 (H) 12/16/2020 09:29 AM TSH 2.22 08/01/2013 02:58 PM LDL 82 10/23/2019 11:03 AM LDL NOT APPLICABLE 10/23/2019 11:03 AM ALT 23 07/21/2024 09:32 AM ALT 17 08/27/2020 08:32 AM * Telephone Encounter - Siva Sanchez [facility] - 09/14/2024 10:13 AM ESTPending Prescriptions: Disp Refills Albuterol Sulfate HFA 108 (90 Base) MCG/AC*36 g 1 Sig: INHALE 2 PUFFS BY MOUTH EVERY 4 HOURS NEEDED FOR WHEEZING * Telephone Encounter - Siva Sanchez [facility] - 09/14/2024 10:12 AM EST Patient has no PCP under whom to authorize refills. Please approve if appropriate. Pending Prescriptions: Disp Refills Albuterol Sulfate HFA 108 (90 Base) MCG/AC*36 g 1 Sig: INHALE 2 PUFFS BY MOUTH EVERY 4 HOURS NEEDED FOR WHEEZING Last Visit: 09/06/2024 (in office), Visit date not found (telemedicine) Next Visit: 04/09/2025 If no future appointments scheduled, and last appointment is greater than a year ago, please schedule patient for a follow-up appointment Last date the medication was ordered: 07-11-24 Pharmacy: [facility] [address] [place] [address] Is this request for a controlled substance?No Urine Drug Screen:No results found for this or any previous visit. Patient Phone Numbers Labs: Lab Results Component Value Date/Time CREAT 0.5 08/02/2024 10:10 AM CREAT 0.7 08/27/2020 08:32 AM POTASSIUM 3.8 08/02/2024 10:10 AM POTASSIUM 3.9 08/27/2020 08:32 AM TSH 5.12 (H) 12/16/2020 09:29 AM TSH 2.22 08/01/2013 02:58 PM LDL 82 10/23/2019 11:03 AM LDL NOT APPLICABLE 10/23/2019 11:03 AM ALT 23 07/21/2024 09:32 AM ALT 17 08/27/2020 08:32 AM Kody Moya.Ph. Clinical Pharmacist [facility] [address] [place] [address], [address] [place] [address] MC: [phone] [id number] 09/14/2024,10:12 AM documented in this encounter Plan of Treatment Upcoming Encounters Date Type Department Care Team (Late st Contact Info) Description 10/02/2024 12:00 PM EST Office Visit Pulmonary Medicine, [facility] system [address] [facility] [place] [address] Vlad Olmos MD [address] [facility] [address] 10/17/2024 9:00 AM EST Office Visit Gastroenterology, Health system [address] [facility] [place] [address] Musa Gilbert CRNP 132 [facility] [place] [address] 10/22/2024 10:00 AM EST Laboratory Laboratory, Health system [address] [facility] [place] [phone] BruceBhavesh bragg 132 [facility] [place] [address] 01/31/2025 9:30 AM EDT Laboratory Laboratory, Health system [address] [facility] [place] [address] Bhavesh Bruce [address] [facility] [place] [address] 02/07/2025 11:30 AM EDT Office Visit Hematology/Oncology [facility] [address] [facility], [place] [address] Crystal Gilbert CRNP [address] [place] [address] 04/09/2025 8:40 AM EDT Office Visit Family Practice [facility] system [address] [place] [address] Etienne Mcguire DO [address] [place] [address] Scheduled Procedures Name Priority Associated Diagnoses Date/Ti me ESOPHAGOGASTRODUODENOSCOPY ( EGD), FLEXIBLE, TRANSORAL, DIAGNOSTIC Recall Cirrhosis (HCC) Esophageal varices (HCC) COLONOSCOPY FLEXIBLE PROXIMAL DIAGNOSTIC Recall Screen for colon cancer Health Maintenance Due Date Last Done Comments DISCUSS TOBACCO CESSATION (REFER TO SMARTSET #7694) 1964 HPV/Co-Test 1994 Cologuard 2009 Fecal Occult [...] Not on filedocumented as of this encounter Visit Diagnoses Diagnosis COPD, group D, by GOLD 2017 classification (HCC) documented in this encounter
--- OUTSIDE RECORDS SUMMARY | 2024-11-07 12:38 | External Medical Summary ---
Author Name Unknown Address Unknown Organization K09:[facility] [address] [place] [address] Laboratory Report Ordering Provider Test Date Status LAWRENCE EVANS 10/26/2024 08:53:00 Final Observation Date Value Abnormality Reference (Units ) Status SYNC LEUKOCYTES IN BLOOD BY AUTOMATED COUNT 10/26/2024 08:53:00 9.30 4.00-10.80 (K/uL) Final Neutrophils/100 leukocytes in Blood by Manual count 10/26/2024 08:53:00 78.0 Above high normal 40.0-75.0 (%) Final Lymphocytes/100 leukocytes in Blood by Manual count 10/26/2024 08:53:00 6.0 Below low normal 18.0-42.0 (%) Final Monocytes/100 leukocytes in Blood by Manual count 10/26/2024 08:53:00 12.0 Above high normal 1.0-11.0 (%) Final Eosinophils/100 leukocytes in Blood by Manual count 10/26/2024 08:53:00 2.0 0.0-6.0 (%) Final Basophils/100 leukocytes in Blood by Manual count 10/26/2024 08:53:00 1.0 0.0-2.0 (%) Final Metamyelocytes/100 leukocytes in Blood by Manual count 10/26/2024 08:53:00 1.0 Above high normal <=0.0 (%) Final Neutrophils [#/volume] in Blood by Manual count 10/26/2024 08:53:00 7.25 1.80-7.70 (K/uL) Final Lymphocytes [#/volume] in Blood by Manual count 10/26/2024 08:53:00 0.56 Below low normal 1.00-4.80 (K/uL) Final Monocytes [#/volume] in Blood by Manual count 10/26/2024 08:53:00 1.12 Above high normal 0.00-1.10 (K/uL) Final Eosinophils [#/volume] in Blood by Manual count 10/26/2024 08:53:00 0.19 0.00-0.70 (K/uL) Final Basophils [#/volume] in Blood by Manual count 10/26/2024 08:53:00 0.09 0.00-0.20 (K/uL) Final Metamyelocytes [#/volume] in Blood by Manual count 10/26/2024 08:53:00 0.09 Above high normal <=0.00 (K/uL) Final Nucleated erythrocytes/100 leukocytes [Ratio] in Blood by Automated count 10/26/2024 08:53:00 Final Performing Location [facility] [address] [place] [address]
--- OUTSIDE RECORDS SUMMARY | 2024-11-07 12:38 | External Medical Summary | Summary of Care ---
Author Name Unknown Organization [facility] Address [address] [place] [address] Phone [phone] Care Team Providers Care Card Hanger Name Role Phone Unavailable Primary Care Provider Unavailabl e Reason for Visit * Reason Onset Date Comments Appointment 09/25/2024 Encounter Details Date Type Department Care Team (Late st Contact Info) Description 09/25/2024 Telephone [facility] Practice [facility] [address] [facility] [address] Lila Gallo CR[facility] [address] [facility] [address] Appointment Allergies Active Allergy Reactions Criticality Noted Date Comments Codeine Nausea/vomiting 02/08/2017 documented as of this encounter (statuses as of 09/27/2024) Medications potassium chloride ER 10 MEQ TBCR [...] as of this encounter (statuses as of 09/27/2024) Active Problems Problem Noted Date Diagnosed Date [...] as of this encounter (statuses as of 09/27/2024) Resolved Problems Problem Noted Date Diagnosed Date Resolved Date Other disorders of bilirubin metabolism 12/27/2022 10/22/2023 COPD, severity to be determined 10/26/2018 12/06/2019 Overview: Per COPD GOLD Classification Chronic hepatitis C without hepatic coma 05/11/2016 11/29/2016 Overview (11/29/2016): HCV treated; SVR confirmed 11/19/2016 documented as of this encounter (statuses as of 09/27/2024) Immunizations Name Administration Dates Next Due COVID-19 mRNA, LNP-s, No Pre serve, 2-Dose Series ([employer]) 09/08/2021,01/10/2021,12/20/2020 COVID-19, LNP-s, No Preserve , Ignacio-sucrose, Ages 12+ ([employer]) 03/22/2022 COVID-19, MRNA-LNP, 24-25, P R, 30MCG/0.3ML, IM, 12YRS AND ABOVE ([employer]) 05/31/2024 COVID-19, MRNA-LNP, PF, 30 M CG/0.3 mL, 12 YRS AND ABOVE, IM ([employer]) 07/11/2023 Hepatitis B, 20+ yrs 05/11/2016 Pneumococcal [...] 12:00 PM EST Office Visit Pulmonary Medicine, [facility] [address] [facility] [place] [address] Vlad Olmos MD [address] [facility] [place] [address] 10/17/2024 9:00 AM EST Office Visit Gastroenterology, [facility] 132 [facility] [place] [address] Musa Gilbert CRNP 132 [facility] [place] [address] 10/22/2024 10:00 AM EST Laboratory Laboratory, [facility] [address] [facility] [place] [phone] Bhavesh Bruce [address] [facility] [place] [address] 01/31/2025 9:30 AM EDT Laboratory Laboratory, [facility] [address] [facility] [place] [phone] Bhavesh Bruce [facility] [place] [address] 02/07/2025 11:30 AM EDT Office Visit Hematology/Oncology [facility] [phone] Crystal Gilbert CRNP [address] [facility] [place] [address] 04/09/2025 8:40 AM EDT Office Visit Family Practice [facility] 132 [facility] [place] [address] Sumi Dailey DO 132 [facility] [place] [address] Scheduled Procedures Name Priority Associated Diagnoses Date/Ti me ESOPHAGOGASTRODUODENOSCOPY ( EGD), FLEXIBLE, TRANSORAL, DIAGNOSTIC Recall Cirrhosis (HCC) Esophageal varices (HCC) COLONOSCOPY FLEXIBLE PROXIMAL DIAGNOSTIC Recall Screen for colon cancer Health Maintenance Due Date Last Done Comments DISCUSS TOBACCO CESSATION (REFER TO SMARTSET #7926) 1965 Cologuard 2009 Fecal Occult Blood Test [...]
--- OUTSIDE RECORDS SUMMARY | 2024-11-07 12:38 | External Medical Summary | Summary of Care ---
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 Name Role Phone Unavailable Primary Care Provider Unavailabl e Encounter Details Date Type Department Care Team (Late st Contact Info) Description 09/06/2024 Telephone Family Practice [facility] [address] [facility] [place] [address] Lila Gallo CRNP [address] [facility] [place] [address] Allergies Active Allergy Reactions Criticality Noted Date Comments Codeine Nausea/vomiting 02/08/2017 documented as of this encounter (statuses as of 10/04/2024) Medications potassium chloride ER 10 MEQ TBCR [...] Active Cyclobenzaprine HCl 5 MG Oral Tablet (Flexeril)Indic ations:Acute bilateral thoracic back pain TAKE 1 TABLET BY MOUTH ONCE DAILY NEEDED FOR MUSCLE SPASM 90 Tablet 1 06/10/2022 Active hydrOXYzine HCl 25 MG Oral TabletIndicatio ns:Anxiety Take 1 Tablet by mouth every night at bedtime. 90 Tablet 3 08/17/2022 Active Fluticasone-Ume clidin-Vilant 100-62.5-25 MCG/ACT Aerosol Powder Breath Activated (Trelegy Ellipta) Inhale 1 Puff by mouth in the morning. Rinse mouth and gargle with water after use.. 180 Blister Dosing Unit 3 12/12/2023 Active Omeprazole 40 MG Oral Capsule Delayed Release (PriLOSEC)Indic ations:Secondar y esophageal varices with bleeding (HCC) One tab each before first meal daily. 90 Capsule 3 04/04/2024 Active Spironolactone 50 MG Oral Tablet (Aldactone) Take 1 Tablet by mouth in the morning. 30 Tablet 2 07/24/2024 Active documented as of this encounter (statuses as of 10/04/2024) Active Problems Problem Noted Date Diagnosed Date [...] as of this encounter (statuses as of 10/04/2024) Resolved Problems Problem Noted Date Diagnosed Date Resolved Date Other disorders of bilirubin metabolism 12/27/2022 10/22/2023 COPD, severity to be determined 10/26/2018 12/06/2019 Overview: Per COPD GOLD Classification Chronic hepatitis C without hepatic coma 05/11/2016 11/29/2016 Overview (11/29/2016): HCV treated; SVR confirmed 11/19/2016 documented as of this encounter (statuses as of 10/04/2024) Immunizations Name Administration Dates Next Due COVID-19 mRNA, LNP-s, No Pre serve, 2-Dose Series ([employer]) 09/08/2021,01/10/2021,12/20/2020 COVID-19, LNP-s, No Preserve , Ginacio-sucrose, Ages 12+ ([employer]) 03/22/2022 COVID-19, MRNA-LNP, 24-25, P R, 30MCG/0.3ML, IM, 12YRS AND ABOVE ([employer]) 05/31/2024 COVID-19, MRNA-LNP, PF, 30 M CG/0.3 mL, 12 YRS AND ABOVE, IM ([employer]) 07/11/2023 Hepatitis B, 20+ yrs 05/11/2016 Pneumococcal [...] encounter Miscellaneous Notes * Telephone Encounter - Ese Powers CMA - 09/10/2024 4:54 PM EST Called and spoke with pt, gave her message about lesion. Pt says she already has an appt with derm tomorrow to have it looked at/removed. Pt verbalized understanding, said she feels much better now knowing it isn't cancer. Instructed pt to call back with any questions. * Telephone Encounter - Lila Gallo CRNP - 09/06/2024 11:09 AM EST Reviewed skin lesion image with another provider - agree exam c/w port of [place] which is benign blackhead. If she'd like to follow up with derm to discuss removal and other skin lesions I've placed non urgent referral documented in this encounter Plan of Treatment Upcoming Encounters Date Type Department Care Team (Late st Contact Info) Description 10/17/2024 9:00 AM EST Office Visit Gastroenterology, [facility] [address] [place] [address] Musa Gilbert CRNP [address] [place] [address] 10/22/2024 10:00 AM EST Laboratory Laboratory, [facility] [address] [place] [phone] Bhavesh Bruce [address] [place] [address] 01/31/2025 9:30 AM EDT Laboratory Laboratory, [facility] [address] [place] [phone] BruceBhavesh bragg [address] [place] [address] 02/07/2025 11:30 AM EDT Office [facility] [phone] Crystal Gilbert CRNP 400 [facility] [place] [address] 04/09/2025 8:40 AM EDT Office Visit Family Practice [facility] [address] [place] [address] Sumi [place] DO [address] [place] [address] Scheduled Procedures Name Priority Associated Diagnoses Date/Ti me ESOPHAGOGASTRODUODENOSCOPY ( EGD), FLEXIBLE, TRANSORAL, DIAGNOSTIC Recall Cirrhosis (HCC) Esophageal varices (HCC) COLONOSCOPY FLEXIBLE PROXIMAL DIAGNOSTIC Recall Screen for colon cancer Health Maintenance Due Date Last Done Comments DISCUSS TOBACCO CESSATION (REFER TO SMARTSET #5096) 1964 Cologuard 2009 Fecal Occult Blood Test [...]
--- OUTSIDE RECORDS SUMMARY | 2024-11-07 12:38 | External Medical Summary | Summary of Care ---
Author Name Unknown Organization [facility] Address [address] [facility] [place] [address] Phone [phone] Care Team Providers Care Grocery Associate Name Role Phone Unavailable Primary Care Provider Unavailabl e Reason for Visit * Reason Comments NEW PATIENT Referral from pcp fo r Skin lesion in groin area * Evaluate & Treat - Unlimited Visits (Within 10 days (routine)) - Authorized Specialty Diagnoses / Procedures Referred By Deniz lopez Referred To Contact Dermatology Diagnoses Skin lesion Lila Gallo CRNP [address] [place] [address] Phone: tel: fax: Referral ID Status Reason Start Date Expiration Date Visits Requested Visits Authorized [id number] Authorized Specialty Services Required 09/06/[phone] Encounter Details Date Type Department Care Team (Late st Contact Info) Description 09/11/2024 2:00 PM EST Office Visit [address] [place] [phone] Jeaneth Pérez PA-C [address] [place] [address] [place] [id number] Seborrheic keratosis*; Open comedone Allergies Active Allergy Reactions Criticality Noted Date Comments Codeine Nausea/vomiting 02/08/2017 documented as of this encounter (statuses as of 09/11/2024) Medications potassium chloride ER 10 MEQ TBCR [...] 2 Active hydrOXYzine HCl 25 MG Oral TabletIndications: Anxiety Take 1 Tablet by mouth every night at bedtime. 90 Tablet 3 2 Active Fluticasone-Umecli din-Vilant 100-62.5-25 MCG/ACT Aerosol Powder [...] s:COPD, group D, by GOLD 2017 classification (HCC) INHALE 2 PUFFS BY MOUTH EVERY 4 HOURS NEEDED FOR WHEEZING 36 g 1 4 Active Spironolactone 50 MG Oral Tablet (Aldactone) Take 1 Tablet by mouth in the morning. 30 Tablet 2 4 Active folic acid 1 MG Tablet Take 1 Tab by mouth daily. 90 Tab 3 9 025 Discontin ued(Medic ation List Clean Up) documented as of this encounter (statuses as of 09/11/2024) Active Problems Problem Noted Date Diagnosed Date [...] as of this encounter (statuses as of 09/11/2024) Resolved Problems Problem Noted Date Diagnosed Date Resolved Date Other disorders of bilirubin metabolism 12/27/2022 10/22/2023 COPD, severity to be determined 10/26/2018 12/06/2019 Overview: Per COPD GOLD Classification Chronic hepatitis C without hepatic coma 05/11/2016 11/29/2016 Overview (11/29/2016): HCV treated; SVR confirmed 11/19/2016 documented as of this encounter (statuses as of 09/11/2024) Immunizations Name Administration Dates Next Due COVID-19 mRNA, LNP-s, No Pre serve, 2-Dose Series ([employer]) 09/08/2021,01/10/2021,12/20/2020 COVID-19, LNP-s, No Preserve , Ignacio-sucrose, Ages 12+ ([employer]) 03/22/2022 COVID-19, MRNA-LNP, 24-25, P R, 30MCG/0.3ML, IM, 12YRS AND ABOVE ([employer]) 05/31/2024 COVID-19, MRNA-LNP, PF, 30 M CG/0.3 mL, 12 YRS AND ABOVE, IM ([employer]) 07/11/2023 Hepatitis B, 20+ yrs 05/11/2016 Pneumococcal [...] on file documented as of this encounter Patient Instructions * Patient Instructions* Jeaneth Pérez PA-C - 09/11/2024 2:06 PM EST SUNSCREEN USE AND SUN PROTECTION: 1. The best protection is sun avoidance. Seek shade if you can, especially between 10am to 4pm (peak sun hours). 2. Use sunscreen with an SPF (Sun Protection Factor - the number on most sunscreen bottles) of 30 or more that protects from Ultraviolet A (UVA) and Ultraviolet B (UVB) wavelength light (strongly recommend SPF 50). This is referred to as broad spectrum sun protection because it protects from most wa velengths in both spectrums of UVA and UVB light. Unfortunately, even though the protection is broad it is not complete, therefore making sun avoidance the best protection. UVB and UVA have both beenimplicated in causing skin cancers. Older sunscreens only protected from UVB and sunscreens with added UVA protection should contain Titanium dioxide, Zinc oxide, or Avobenzone. Other oil free, non-comedogenic lotion with SPF 30 or greater is fine. 3. Use sun protection if outside for 15 minutes or more. Apply 20-30 minutes before going out and reapply every 1-2 hours. No sunscreen is truly water ''proof'' and it will wash away with sweat, swimming and rubbing. 4. Wear tightly woven, loose fitting (cooler) long sleeved clothing, UV-blocking sun glasses (eyes need protection as well) and wide-brimmed hatwear (no straw hats with holes because light still getsthrough). Strongly recommended *Neutrogena Pure and Free Baby SPF 60 (have separate face and body lotions) orCeraVe AM facial lotion (with SPF 30). If looking for non toxic alternatives-look for non-noemi particle zinc. Product examples; Think sport, Think baby, Pardeep, Diaspora, Alballyve, [place] baby. "Baby" products can be used for all ages. documented in this encounter Progress Notes * Anival Prince MD - 09/11/2024 2:49 PM EST I have seen and examined the patient via teledermatology review of chart note and photos with Jeaneth Pérez PA-C. I have reviewed and agree with the assessment and plan. * Jeaneth Pérez PA-C - 09/11/2024 2:00 PM EST SUBJECTIVE: HPI: Jeni Zhu is a 58 year old female seen at the request of STEPHENIE Uribe for evaluation and treatment of R groin lesion. Pt. declined full skin exam. Lesion on R groin crease, present for over 1 year. No tx to date. 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 REVIEW OF SYSTEMS: SKIN: No other new or changing moles. HEME/LYMPH: No new or enlarging lumps or bumps. CONSTITUTIONAL: No nausea, vomiting, fevers, chills, diarrhea. No recent unintended weight loss, night sweats, appetite or malaise. RESP: negative MSK/EXT: Negative or as per HPI GI: negative CV: Negative or as per HPI Rest of systems are negative or as per HPI SKIN CANCER HX: NONE Reviewed, same day as visit, 0 [facility] Dermatology lab work(s)/pathology report(s) as well as those sent by referring provider prior to seeing pt. Past Medical History: Diagnosis Date Acute gastritis Acute pancreatitis Alcoholic cirrhosis (HCC) Alcoholism (HCC) COPD, group B, by GOLD 2017 classification (HCC) 12/03/2019 Per COPD GOLD Classification Depression with anxiety Family history of lung cancer Sister age 65 from lung cancer (Smoker) Hematemesis Hepatitis C Hypokalemia Nicotine dependence Portal hypertension (HCC) 08/25/2018 Protein-calorie malnutrition (HCC) 10/25/2019 Thrombocytopenia (HCC) FAMILY HISTORY: Skin CA: None Skin Disorders: none SOCIAL HISTORY: Social History Tobacco Use Smoking status: Every Day Current packs/day: 0.00 Average packs/day: 1 pack/day for 38.0 years (38.0 ttl pk-yrs) Types: Cigarettes Start date: 12/02/1984 Last attempt to quit: 12/02/2022 Years since quittin.7 Smokeless tobacco: Never Tobacco comments: HX of smoking 1.5 ppd . 2 cpd. Smoker 12/12/23. Substance Use Topics Alcohol use: Not Currently Comment: hx of ETOH use: last used 10/25/2022 Vaping/E-Cigarette Use Vaping/E-Cigarette Use Never User Vaping/E-Cigarette Substances Vaping/E-Cigarette Devices MEDICA TIONS: Current Outpatient Medications Medication Sig Dispense Refill potassium chloride ER 10 MEQ TBCR Take 1 Tablet by mouth daily as needed. oxygen IN GAS Use 2 L/min(Oxygen) as directed. At night polyethylene glycol 3350 119 gram PO POWD Take 119 g by mouth every evening. As needed Docusate Sodium 100 MG Oral Capsule (Colace) Take 1 Capsule by mouth 2 times a day as needed. Multi Complete Oral Capsule Take by mouth 1 Capsule in the morning. Iron 325 (65 Fe) MG Oral Tablet Take by mouth . Cyclobenzaprine HCl 5 MG Oral Tablet (Flexeril) TAKE 1 TABLET BY MOUTH ONCE DAILY NEEDED FOR MUSCLE SPASM 90 Tablet 1 hydrOXYzine HCl 25 MG Oral Tablet Take 1 Tablet by mouth every night at bedtime. 90 Tablet 3 Uousjrprgxt-Imznogbwz-Lrponm 100-62.5-25 MCG/ACT Aerosol Powder Breath Activated (Trelegy Ellipta) Inhale 1 Puff by mouth in the morning. Rinse mouth and gargle with water after use.. 180 Blister Dosing Unit 3 Omeprazole 40 MG Oral Capsule Delayed Release (PriLOSEC) One tab each before first meal daily. 90 Capsule 3 Albuterol Sulfate HFA 108 (90 Base) MCG/ACT Inhalation Aerosol Solution INHALE 2 PUFFS BY MOUTH EVERY 4 HOURS NEEDED FOR WHEEZING 36 g 1 Spironolactone 50 MG Oral Tablet (Aldactone) Take 1 Tablet by mouth in the morning. 30 Tablet 2 No current facility-administered medications for this visit. ALLERGY: Codeine OBJECT ROMANA: GEN: alert, no distress, appears oriented, pleasant, and cooperative. SKIN: Detailed exam of right lower ext. (leg, foot, toes) and groin (mons pubis) completed: 1. R mons pubis-Open comedone with oxidized keratinized material. 2. R anterior thigh-Anguiano rough slightly rough adherent papule. ASSESS MENT/PLAN: 1. Open comedone on R mons pubis-Explained lesion and expressed contents of keratinized material (NO COST TO PT), no bleeding occurred. 2. Seborrheic/Benign Keratosis on R anterior thigh-no tx needed, pt given reassurance and written education about diagnosis. Mole brochure given and ABCDE's discussed with patient. Annual full body skin examination (unless Irecommended otherwise), self-examination, and sun protection (SPF 30+ daily to sun exposed areas, with reapplication every 1-2 hours when out in sun for long periods of time) advised and discussed. Re commended sooner follow up for new or changing lesions. These changes include rapid enlargement, changes in color or shape or symptoms, bleeding, or other concerns. The common features and behavior of non-melanoma skin cancers (e.g. BCC/SCC) as well as the ABCDEs and ugly duckling features of melanoma were also reviewed. Patient alone today. Photo(s) of #1-2 taken, pt verbally consented to having photo(s) taken. Follow-up: as desired for full skin exam Photos and clinic note evaluated by Dr. Anival Prince. Presum ed diagnoses, expected natural histories, and management options discussed with the patient at length. Questions were addressed and anticipatory guidance provided. They were instructed to contact me if additional questions, concerns, or problems develop in the interim. -There were no barriers to learning and no other pain was related to today's visit. The patient and/or person accompanying patient demonstrates understanding of the visit and treatment. Jeaneth Pérez PA-C 09/11/2024 1:58 PM Dermatology, [address] [address] [place] [phone] documented in this encounter Nursing Notes * Lila June LPN - 09/11/2024 1:36 PM EST Patient identified by name and date of . Do you have any concerns about pain management for today's visit? No Living Will or Advance Directive for Health Care as noted on problem list. [facility] is a way you can talk to your provider online through e-mail. Would you like to sign up? I can activate it for you? ALREADY ACTIVE Chief Complaint Patient presents with NEW PATIENT Referral from pcp for Skin lesion in groin area documented in this encounter Plan of Treatment Upcoming Encounters Date Type Department Care Team (Late st Contact Info) Description 10/02/2024 12:00 PM EST Office Visit Pulmonary Medicine, [facility] [address] [facility] [place] [address] Vlad Olmos MD [address] [facility] [place] [address] 10/17/2024 9:00 AM EST Office Visit Gastroenterology, [facility] [address] [facility] [place] [address] Musa Gilbert CRNP [address] [place] [address] 10/22/2024 10:00 AM EST Laboratory Laboratory, [facility] [address] [place] [phone] Bhavesh Bruce [address] [place] [address] 01/31/2025 9:30 AM EDT Laboratory Laboratory, [facility] [address] [place] [phone] Bhavesh Bruce [address] [place] [address] 02/07/2025 11:30 AM EDT Office Visit Hematology/Oncology [facility] [address] [place], [place] [phone] Crystal Gilbert CRNP [address] [place] [address] 04/09/2025 8:40 AM EDT Office Visit Family Practice [facility] [address] [place] [address] Sumi Dailey DO [address] [facility] [place] [address] Scheduled Procedures Name Priority Associated Diagnoses Date/Ti me ESOPHAGOGASTRODUODENOSCOPY ( EGD), FLEXIBLE, TRANSORAL, DIAGNOSTIC Recall Cirrhosis (HCC) Esophageal varices (HCC) COLONOSCOPY FLEXIBLE PROXIMAL DIAGNOSTIC Recall Screen for colon cancer Health Maintenance Due Date Last Done Comments DISCUSS TOBACCO CESSATION (REFER TO SMARTSET #4685) 1964 HPV/Co-Test 1994 Cologuard 2009 Fecal Occult Blood Test 2009 Sigmoidoscopy 2009 Cervical Cancer Screening 11/11/2023 Pap Smear 11/11/2023 11/10/2020, 11/10/2020 COVID-19 Vaccine ( season) 2024 05/31/2024, 07/11/2023, 03/22/2022, Additional history exists Depression Monitoring 09/14/2024 09/14/2023 Lipid Panel 10/22/2024 10/23/2019 O2 ASSESSMENT COMPLETED IN PAST YEAR FOR COPD 02/07/2025 02/08/2024 Mammogram 02/16/2025 02/17/2024, 0603/2024, 02/15/2023, Additional history exists Pneumococcal Vaccine: 50+ Years (3 of 3 - PCV20 or PCV21) 02/17/2027 02/17/2022, 05/19/2019 DTap/Tdap Vaccines (2 - Td or Tdap) 04/16/2030 04/16/2020 Colonoscopy 12/14/2032 12/14/2022, 02/2021, 01/26/2021, Additional history exists Colorectal Cancer [...] study not interpreted or resulted by a [facility] or [facility] contracted radiologist. us Jeaneth Pérez PA-C RADIOLOGY (RAD GENERAL ) Final Result documented in this encounter Visit Diagnoses Diagnosis Seborrheic keratosis- Primary Other seborrheic keratosis Open comedone Other acne documented in this encounter
--- OUTSIDE RECORDS SUMMARY | 2024-11-07 12:38 | External Medical Summary | Summary of Care ---
Author Name Unknown Organization [facility] Address [address] [place] [address] Phone [phone] Care Team Providers Care Elastic Cutter Name Role Phone Unavailable Primary Care Provider Unavailabl e Reason for Visit * Reason Onset Date Comments Appointment 09/25/2024 Encounter Details Date Type Department Care Team (Late st Contact Info) Description 09/25/2024 Telephone Family Practice [facility] [address] [facility] [place] [address] Lila Gallo [facility] [address] [facility] [address] Appointment Allergies Active Allergy Reactions Criticality Noted Date Comments Codeine Nausea/vomiting 02/08/2017 documented as of this encounter (statuses as of 09/26/2024) Medications potassium chloride ER 10 MEQ TBCR [...] as of this encounter (statuses as of 09/26/2024) Active Problems Problem Noted Date Diagnosed Date [...] as of this encounter (statuses as of 09/26/2024) Resolved Problems Problem Noted Date Diagnosed Date Resolved Date Other disorders of bilirubin metabolism 12/27/2022 10/22/2023 COPD, severity to be determined 10/26/2018 12/06/2019 Overview: Per COPD GOLD Classification Chronic hepatitis C without hepatic coma 05/11/2016 11/29/2016 Overview (11/29/2016): HCV treated; SVR confirmed 11/19/2016 documented as of this encounter (statuses as of 09/26/2024) Immunizations Name Administration Dates Next Due COVID-19 mRNA, LNP-s, No Pre serve, 2-Dose Series ([employer]) 09/08/2021,01/10/2021,12/20/2020 COVID-19, LNP-s, No Preserve , Ignacio-sucrose, Ages 12+ ([employer]) 03/22/2022 COVID-19, MRNA-LNP, 24-25, P R, 30MCG/0.3ML, IM, 12YRS AND ABOVE ([employer]) 05/31/2024 COVID-19, MRNA-LNP, PF, 30 M CG/0.3 mL, 12 YRS AND ABOVE, IM ([email or web address]) 07/11/2023 Hepatitis B, 20+ yrs 05/11/2016 Pneumococcal [...] 12:00 PM EST Office Visit Pulmonary Medicine, [address] [place] [address] Vlad Olmos MD [address] [facility] [place] [phone] 10/17/2024 9:00 AM EST Office Visit Gastroenterology, [facility] [address] [place] [address] Musa Gilbert CRNP [address] [place] [address] 10/22/2024 10:00 AM EST Laboratory Laboratory, [facility] 132 [facility] [place] [phone] [facility] [place] [address] 01/31/2025 9:30 AM EDT Laboratory Laboratory, [facility] [place] [phone] [facility] [address] [facility] [place] [address] 02/07/2025 11:30 AM EDT Office Visit Hematology/Oncology [facility] [address] [place] [phone] Crystal Gilbert CRNP [address] [facility] [place] [address] 04/09/2025 8:40 AM EDT Office Visit Family Practice [facility] [address] [place] [address] Sumi Dailey DO [address] [facility] [place] [address] Scheduled Procedures Name Priority Associated Diagnoses Date/Ti me ESOPHAGOGASTRODUODENOSCOPY ( EGD), FLEXIBLE, TRANSORAL, DIAGNOSTIC Recall Cirrhosis (HCC) Esophageal varices (HCC) COLONOSCOPY FLEXIBLE PROXIMAL DIAGNOSTIC Recall Screen for colon cancer Health Maintenance Due Date Last Done Comments DISCUSS TOBACCO CESSATION (REFER TO SMARTSET #8159) 1964 Cologuard 2009 Fecal Occult Blood Test [...]
--- OUTSIDE RECORDS SUMMARY | 2024-11-07 12:38 | External Medical Summary ---
Author Name Unknown Address Unknown Organization K09:[facility] [address] Laboratory Report Ordering Provider Test Date Status LAWRENCE EVANS 10/26/2024 08:53:00 Final Observation Date Value Abnormality Reference (Units ) Status WBC, Total 10/26/2024 08:53:00 9.30 4.00-10.8 0 (K/uL) Final RBC 10/26/2024 08:53:00 3.07 3.85-5.15 (M/uL) Final Hemoglobin 10/26/2024 08:53:00 10.3 Below low normal 12 .0-15.3 (g/dL) Final HCT 10/26/2024 08:53:00 31.9 Below low normal 36. 0-45.2 (%) Final MCV 10/26/2024 08:53:00 103.9 81.5-97.5 (fL) Final MCH 10/26/2024 08:53:00 33.6 27.0-34.0 (pg) Final MCHC 10/26/2024 08:53:00 32.3 32.0-36.0 (g/dL) Final RDW 10/26/2024 08:53:00 17.9 11.5-15.5 (%) Final Platelets 10/26/2024 08:53:00 61 Below low normal 140 -400 (K/uL) Final MPV 10/26/2024 08:53:00 11.8 6.6-11.1 ( fL) Final Performing Location [facility] [place] [address]
--- OUTSIDE RECORDS SUMMARY | 2024-11-07 12:39 | External Medical Summary ---
Author Name Unknown Address Unknown Organization [id number] [address] [place] [address] Laboratory Report Ordering Provider Test Date Status LAWRENCE EVANS 07/21/2024 09:32:14 Final Observation Date Value Abnormality Reference (Units ) Status Nucleated erythrocytes/100 leukocytes [Ratio] in Blood by Automated count 07/21/2024 09:32:14 Final Performing Location [facility] [place] [address]
--- OUTSIDE RECORDS SUMMARY | 2024-11-07 12:39 | External Medical Summary | Summary of Care ---
Author Name Unknown Organization [facility] Address [address] [place] [address] Phone [phone] Care Team Providers Care Body Shop Technician Name Role Phone Unavailable Primary Care Provider Unavailabl e Encounter Details Date Type Department Care Team (Late st Contact Info) Description 09/10/2024 Population Health External Data Unspecified Department Allergies Active Allergy Reactions Criticality Noted Date Comments Codeine Nausea/vomiting 02/08/2017 documented as of this encounter (statuses as of 09/10/2024) Medications folic acid 1 MG Tablet Take 1 Tab by mouth daily. 90 Tab 3 05/19/20 19 Active Additional Information Patient not taking.Reported on 09/06/2024 potassium chloride ER 10 MEQ TBCR Take 1 Tablet by mouth daily as needed. Active oxygen IN GAS Use 2 L/min(Oxygen) as directed. At night Active polyethylene glycol [...] daily. 90 Capsule 3 04/04/20 24 Active Albuterol Sulfate HFA 108 (90 Base) MCG/ACT Inhalation Aerosol SolutionIndication s:COPD, group D, by GOLD 2017 classification (HCC) INHALE 2 PUFFS BY MOUTH EVERY 4 HOURS NEEDED FOR WHEEZING 36 g 1 07/11/20 24 Active Spironolactone 50 MG Oral Tablet (Aldactone) Take 1 Tablet by mouth in the morning. 30 Tablet 2 07/24/20 24 Active documented as of this encounter (statuses as of 09/10/2024) Active Problems Problem Noted Date Diagnosed Date [...] as of this encounter (statuses as of 09/10/2024) Resolved Problems Problem Noted Date Diagnosed Date Resolved Date Other disorders of bilirubin metabolism 12/27/2022 10/22/2023 COPD, severity to be determined 10/26/2018 12/06/2019 Overview: Per COPD GOLD Classification Chronic hepatitis C without hepatic coma 05/11/2016 11/29/2016 Overview (11/29/2016): HCV treated; SVR confirmed 11/19/2016 documented as of this encounter (statuses as of 09/10/2024) Immunizations Name Administration Dates Next Due COVID-19 mRNA, LNP-s, No Pre serve, 2-Dose Series ([employer]) 09/08/2021,01/10/2021,12/20/2020 COVID-19, LNP-s, No Preserve , Ignacio-sucrose, Ages 12+ ([employer]) 03/22/2022 COVID-19, MRNA-LNP, 24-25, P R, 30MCG/0.3ML, IM, 12YRS AND ABOVE ([employer]) 05/31/2024 COVID-19, MRNA-LNP, PF, 30 M CG/0.3 mL, 12 YRS AND ABOVE, IM ([employer]) 07/11/2023 Hepatitis B, 20+ yrs 05/11/2016 Pneumococcal [...] Description 09/11/2024 2:00 PM EST [facility] [address] [facility] [address] Jeaneth Pérez PA-C [address] [place] [address] [place] [address] 10/02/2024 12:00 PM EST Office Visit Pulmonary Medicine, [facility] 132 [facility] [place] [address] Vlad Olmos MD [address] [facility] [place] [address] 10/17/2024 9:00 AM EST Office Visit Gastroenterology, [facility] 132 [facility] [place] [address] Musa Gilbert CRNP 132 [facility] [place] [address] 10/22/2024 10:00 AM EST Laboratory Laboratory, [facility] 132 [facility] [place] [phone] Bhavesh Bruce [address] [place] [address] 01/31/2025 9:30 AM EDT Laboratory Laboratory, [facility] [address] [place] [phone] Bhavesh Bruce [address] [place] [address] 02/07/2025 11:30 AM EDT Office Visit Hematology/Oncology [facility] 200 [facility], [place] [phone] Crystal Gilbert CRNP [address] [place] [address] 04/09/2025 8:40 AM EDT Office Visit Family Practice [facility] [address] [place] [address] Sumi [place] DO [address] [facility] [place] [address] Scheduled Procedures Name Priority Associated Diagnoses Date/Ti me ESOPHAGOGASTRODUODENOSCOPY ( EGD), FLEXIBLE, TRANSORAL, DIAGNOSTIC Recall Cirrhosis (HCC) Esophageal varices (HCC) COLONOSCOPY FLEXIBLE PROXIMAL DIAGNOSTIC Recall Screen for colon cancer Health Maintenance Due Date Last Done Comments DISCUSS TOBACCO CESSATION (REFER TO SMARTSET #9143) 1964 HPV/Co-Test 1994 Cologuard 2009 Fecal Occult [...]
--- OUTSIDE RECORDS SUMMARY | 2024-11-07 12:39 | External Medical Summary | Summary of Care ---
Author Name Unknown Organization [facility] Address [address] [place] [address] Phone [phone] Care Team Providers Care Medical Office Administrator Name Role Phone Unavailable Primary Care Provider Unavailabl e Reason for Referral * Evaluate & Treat - Unlimited Visits (Within 10 days (routine)) - Authorized Specialty Diagnoses / Procedures Referred By Deniz lopez Referred To Contact Dermatology Diagnoses Skin lesion Lila Gallo CRNP [address] [place] [address] Phone: tel: fax: Referral ID Status Reason Start Date Expiration Date Visits Requested Visits Authorized [id number] Authorized Specialty Services Required 09/06/2024 999 999 Question Answer Referral Priority Within 10 days (routine) Where should this appointment be scheduled? [facility] Are you referring the patient for Mohs Surgery and have a current positive skin cancer biopsy result? No What is the reason for the patient referral? Rash/Skin Check/Eval of Lesion or Mole Reason for Visit * Reason Comments PAP Annual PAP Encounter Details Date Type Department Care Team (Latest Contact Info) Description 09/06/2024 10:20 AM EST Office Visit [facility] [address] [place] [address] Lila Gallo CRNP [address] [place] [address] Screening for cervical cancer*; Skin lesion; COPD, group B, by GOLD 2017 classification (HCC); Other cirrhosis of liver (HCC); Thrombocytopenia (HCC); Iron deficiency anemia, unspecified iron deficiency anemia type; Protein-calorie malnutrition, unspecified severity (HCC); Portal hypertension (HCC) Allergies Active Allergy Reactions Criticality Noted Date Comments Codeine Nausea/vomiting 02/08/2017 documented as of this encounter (statuses as of 09/06/2024) Medications folic acid 1 MG Tablet Take [...] as of this encounter (statuses as of 09/06/2024) Active Problems Problem Noted Date Diagnosed Date [...] as of this encounter (statuses as of 09/06/2024) Resolved Problems Problem Noted Date Diagnosed Date Resolved Date Other disorders of bilirubin metabolism 12/27/2022 10/22/2023 COPD, severity to be determined 10/26/2018 12/06/2019 Overview: Per COPD GOLD Classification Chronic hepatitis C without hepatic coma 05/11/2016 11/29/2016 Overview (11/29/2016): HCV treated; SVR confirmed 11/19/2016 documented as of this encounter (statuses as of 09/06/2024) Immunizations Name Administration Dates Next Due COVID-19 mRNA, LNP-s, No Pre serve, 2-Dose Series ([employer]ob[employer]) 09/08/2021,01/10/2021,12/20/2020 COVID-19, LNP-s, No Preserve , Ignacio-sucrose, Ages 12+ (Pf[employer]) 03/22/2022 COVID-19, MRNA-LNP, 24-25, P R, 30MCG/0.3ML, IM, 12YRS AND ABOVE ([facility] 05/31/2024 COVID-19, MRNA-LNP, PF, 30 M CG/0.3 mL, 12 YRS AND ABOVE, IM ([facility]) 07/11/2023 Hepatitis B, 20+ yrs 05/11/2016 Pneumococcal [...] on file documented as of this encounter Last Filed Vital Signs Vital Sign Reading Time Taken Comments Blood Pressure 122/68 09/06/2024 10:34 AM EST Pulse 88 09/06/2024 10:34 AM EST Temperature 35.9 C (96.7 F) 09/06/2024 10:[address] Respiratory Rate - - Oxygen Saturation 91% 09/06/2024 10:34 AM EST COPD Inhaled Oxygen Concentration - - Weight 52.9 kg (116 lb 9.6 oz) 09/06/2024 10:34 AM EST Height 162.6 cm (5' 4") 09/06/2024 10:34 AM EST Body Mass Index 20.01 09/06/2024 10:34 AM EST documented in this encounter Progress Notes * Lila Gallo CRNP - 09/06/2024 11:02 AM EST Images from the original note were not included. History of Present Illness Jeni Zhu is a 58 year old female that presents for PAP (Annual PAP) HPI Here for pap. No concerns. Denies dysparuenia, new sexual partners, AUB. Mammo UTD. Following with GI for cirrhosis, hematology for IVY and iron infusions. Also pulmonology for COPD. Reports good control of these chronic conditions. Does note an area that feels like a cyst or ingrown hair L inner thigh at bikini line. Been there about a year and initially bigger now smaller. Not painful and no drainage. Current Outpatient Medications Medication Sig Dispense Refill Spironolactone 50 MG Oral Tablet (Aldactone) Take 1 Tablet by mouth in the morning. 30 Tablet 2 Albuterol Sulfate HFA 108 (90 Base) MCG/ACT Inhalation Aerosol Solution INHALE 2 PUFFS BY MOUTH EVERY 4 HOURS NEEDED FOR WHEEZING 36 g 1 COVID-19 mRNA Vac-Ignacio(zerobound) 30 MCG/0.3ML Intramuscular Suspension Prefilled Syringe (Avacen) Inject into a large muscle. 0.3 mL 0 Omeprazole 40 MG Oral Capsule Delayed Release (PriLOSEC) One tab each before first meal daily. 90 Capsule 3 Vwxtxnwaerf-Xicjxlmvs-Iptiny 100-62.5-25 MCG/ACT Aerosol Powder Breath Activated (Trelegy Ellipta) Inhale 1 Puff by mouth in the morning. Rinse mouth and gargle with water after use.. 180 Blister Dosing Unit 3 hydrOXYzine HCl 25 MG Oral Tablet Take 1 Tablet by mouth every night at bedtime. 90 Tablet 3 Cyclobenzaprine HCl 5 MG Oral Tablet (Flexeril) TAKE 1 TABLET BY MOUTH ONCE DAILY NEEDED FOR MUSCLE SPASM 90 Tablet 1 Iron 325 (65 Fe) MG Oral Tablet Take by mouth . Multi Complete Oral Capsule Take by mouth 1 Capsule in the morning. Docusate Sodium 100 MG Oral Capsule (Colace) Take 1 Capsule by mouth 2 times a day as needed. polyethylene glycol 3350 119 gram PO POWD Take 119 g by mouth every evening. As needed oxygen IN GAS Use 2 L/min(Oxygen) as directed. At night potassium chloride ER 10 MEQ TBCR Take 1 Tablet by mouth daily as needed. folic acid 1 MG Tablet Take 1 Tab by mouth daily. (Patient not taking: Reported on 09/06/2024) 90 Tab 3 No current facility-administered medications for this visit. Physical Exam Vitals: 09/06/24 1034 Temp: 96.7 F (35.9 C) Pulse: 88 SpO2: 91% BP: 122/68 BMI: 20 Physical Exam Vitals reviewed. Constitutional: Appearance: Normal appearance. HENT: Head: Normocephalic and atraumatic. Nose: Nose normal. Mouth/Throat: Mouth: Mucous membranes are moist. Eyes: Extraocular Movements: Extraocular movements intact. Conjunctiva/sclera: Conjunctivae normal. Pupils: Pupils are equal, round, and reactive to light. Cardiovascular: Rate and Rhythm: Normal rate and regular rhythm. Heart sounds: Normal heart sounds. Pulmonary: Effort: Pulmonary effort is normal. Breath sounds: Normal breath sounds. Abdominal: General: Bowel sounds are normal. Palpations: Abdomen is soft. Genitourinary: Comments: External: normal anatomy. +5mm ovoid hard black deposit within a dilated pore without erythema, pain/tenderness or discharge in area noted above (#1) Vagina: pink and small white discharge without froth or odor. + atrophy Cervix: pap smear performed, no cervical motion tenderness, without lesions. + atrophy Uterus: mobile, NSSC and non-tender. Adnexa: no palpable mass bilaterally and non-tender bilaterally Rectal: deferred. Musculoskeletal: Right lower leg: No edema. Left lower leg: No edema. Skin: General: Skin is warm and dry. Capillary Refill: Capillary refill takes less than 2 seconds. Neurological: Mental Status: She is alert and oriented to person, place, and time. Psychiatric: Behavior: Behavior normal. Thought Content: Thought content normal. Assessment and Plan Screening for cervical cancer - NEIGHBORHOOD COORDINATOR PAP SCREEN; Future Skin lesion Exam c/w [place] - nonurgent derm referral placed - DERMATOLOGY REFERRAL OP COPD, group B, by GOLD 2017 classification (HCC) Stable Other cirrhosis of liver (HCC) stable Thrombocytopenia (HCC) stable Iron deficiency anemia, unspecified iron deficiency anemia type stable Protein-calorie malnutrition, unspecified severity (HCC) stable Portal hypertension (HCC) stable Wrap-Up Follow Up: Return if symptoms worsen or fail to improve. Time: I spent a total of 20-29 minutes (exact time 20 mins) on the date of service in preparation, delivery, and documentation of the care provided to Jeni Zhu excluding any time spent in the performance of separately billed services. documented in this encounter Nursing Notes * Krystal Michael LPN - 09/06/2024 10:35 AM EST The patient has been properly identified by confirmation of name and date of . . Chief Complaint Patient presents with PAP Annual PAP NO d/c, pain, itchy, rash. Gets ingrown hairs from shaving. No post menopausal concerns. No breast problems, gets mammo yearly. documented in this encounter Plan of Treatment Upcoming Encounters Date Type Department Care Team (Late st Contact Info) Description 09/11/2024 8:00 AM EST Office Visit Pulmonary Medicine, [facility] [address] [facility] [place] [id number] Vlad Olmos MD [address] [facility] [place] [address] 10/17/2024 9:00 AM EST Office Visit Gastroenterology, [facility] [address] [place] [address] Musa Gilbert CRNP [address] [place] [address] 10/22/2024 10:00 AM EST Laboratory Laboratory, [facility] [address] [place] [phone] [facility] [address] [place] [address] 01/15/2025 10:00 AM EDT Laboratory Laboratory, [facility] [address] [place] [phone] [facility] [address] [place] [address] 04/09/2025 8:40 AM EDT Office Visit Family Practice [facility] [address] [place] [address] Sumi Dailey DO [address] [place] [address] Pending Results Name Type Priority Associated Diagnoses Date /Time NEIGHBORHOOD COORDINATOR PAP SCREEN Pathology Routine Screening for cervical cancer 09/06/2024 11:10 AM EST Scheduled Orders Name Type Priority Associated Diagnoses Orde r Schedule NEIGHBORHOOD COORDINATOR PAP SCREEN Pathology Routine Screening for cervical cancer Expected: 09/06/2024, Expires: 10/07/2025 Scheduled Procedures Name Priority Associated Diagnoses Date/Ti me ESOPHAGOGASTRODUODENOSCOPY ( EGD), FLEXIBLE, TRANSORAL, DIAGNOSTIC Recall Cirrhosis (HCC) Esophageal varices (HCC) COLONOSCOPY FLEXIBLE PROXIMAL DIAGNOSTIC Recall Screen for colon cancer Scheduled Referrals Name Type Priority Associated Diagnoses Orde r Schedule DERMATOLOGY REFERRAL OP Referral Within 10 days (routine) Skin lesion Ordered: 09/06/2024 Health Maintenance Due Date Last Done Comments DISCUSS TOBACCO CESSATION (REFER TO SMARTSET #0817) 1964 HPV/Co-Test 1994 Cologuard 2009 Fecal Occult [...] or Tdap) 04/16/2030 04/16/2020 Colonoscopy 12/14/2032 12/14/2022, 0602/2021, 01/26/2021, Additional history exists Colorectal Cancer Screening [...] as of this encounter Visit Diagnoses Diagnosis Screening for cervical cancer- Primary Screening for malignant neoplasm of the cervix Skin lesion Unspecified disorder of skin and subcutaneous tissue COPD, group B, by GOLD 2017 classification (HCC) Other cirrhosis of liver (HCC) Thrombocytopenia (HCC) Thrombocytopenia, unspecified Iron deficiency anemia, unspecified iron deficiency anemia type Protein-calorie malnutrition, unspecified severity (HCC) Portal hypertension (HCC) Portal hypertension documented in this encounter
--- OUTSIDE RECORDS SUMMARY | 2024-11-07 12:39 | External Medical Summary ---
Author Name Unknown Address Unknown Organization [facility] [address] [place] [address] Laboratory Report Ordering Provider Test Date Status LAWRENCE RIVAS 08/02/2024 10:10:45 Final Observation Date Value Abnormality Reference (Units ) Status BUN 08/02/2024 10:10:45 6 6-20 (mg/dL) Final Creatinine 08/02/2024 10:10:45 0.5 0.5-1.0 (mg/dL) Final Glomerular filtration rate/1.73 sq M.predicted [Volume Rate/Area] in Serum, Plasma or Blood by Creatinine-based formula (CKD-EPI) 08/02/2024 10:10:45 >90 >=60 (mL/min) Final eGFR is calculated based on the CKD-EPI 2020 equation. Sodium 08/02/2024 10:10:45 137 135-146 (m mol/L) Final Potassium 08/02/2024 10:10:45 3.8 3.5-5.1 (m mol/L) Final Cl 08/02/2024 10:10:45 99 98-107 (mm ol/L) Final CO2 08/02/2024 10:10:45 26 22-32 (mmo l/L) Final Anion gap 08/02/2024 10:10:45 12 7-15 (mmol /L) Final Glucose 08/02/2024 10:10:45 112 70-120 (mg /dL) Final Calcium 08/02/2024 10:10:45 8.8 8.4-10.2 ( mg/dL) Final [facility]forming Location [facility] [place] [address]
--- OUTSIDE RECORDS SUMMARY | 2024-11-07 12:39 | External Medical Summary | Summary of Care ---
Author Name Unknown Organization [facility] Address [address] [place] [address] Phone [phone] Care Team Providers Care Aircraft Body Repairer Name Role Phone Sumi Dailey DO Primary Care Provider Reason for Visit * Reason Comments Outpatient Testing Encounter Details Date Type Department Care Team (Late st Contact Info) Description 08/02/2024 10:00 AM EST Laboratory Laboratory, [facility] [address] [facility] [place] [phone] [facility] [address] [place] [address] Compensated HCV cirrhosis (HCC) Allergies Active Allergy Reactions Criticality Noted Date Comments Codeine Nausea/vomiting 02/08/2017 documented as of this encounter (statuses as of 08/02/2024) Medications folic acid 1 MG Tablet Take 1 Tab by mouth daily. 90 Tab 3 05/19/20 19 Active Additional Information Patient not taking.Reported on 10/05/2023 potassium chloride ER 10 MEQ TBCR Take [...] as of this encounter (statuses as of 08/02/2024) Active Problems Problem Noted Date Diagnosed Date [...] as of this encounter (statuses as of 08/02/2024) Resolved Problems Problem Noted Date Diagnosed Date Resolved Date Other disorders of bilirubin metabolism 12/27/2022 10/22/2023 COPD, severity to be determined 10/26/2018 12/06/2019 Overview: Per COPD GOLD Classification Chronic hepatitis C without hepatic coma 05/11/2016 11/29/2016 Overview (11/29/2016): HCV treated; SVR confirmed 11/19/2016 documented as of this encounter (statuses as of 08/02/2024) Immunizations Name Administration Dates Next Due COVID-19 mRNA, LNP-s, No Pre serve, 2-Dose Series ([facility]) 09/08/2021,01/10/2021,12/20/2020 COVID-19, LNP-s, No Preserve , Ignacio-sucrose, Ages 12+ (True [facility]) 03/22/2022 COVID-19, MRNA-LNP, 24-25, P R, 30MCG/0.3ML, IM, 12YRS AND ABOVE ([employer]) 05/31/2024 COVID-19, MRNA-LNP, PF, 30 M CG/0.3 mL, 12 YRS AND ABOVE, IM ([employer]) 07/11/2023 Hepatitis B, 20+ yrs 05/11/2016 Pneumococcal [...] Team (Late st Contact Info) Description 09/06/2024 10:20 AM EST Office Visit Family Practice [facility] [address] [place] [address] Lila Gallo CRNP [address] [place] [address] 10/17/2024 9:00 AM EST Office Visit Gastroenterology, [facility] [address] [place] [address] Musa Gilbert CRNP [address] [place] [address] 10/22/2024 10:00 AM EST Laboratory [facility], [facility] [phone] Bhavesh Bruce [address] [facility] [place] [address] 01/15/2025 10:00 AM EDT Laboratory Laboratory, [facility] [address] [facility] [place] [address] [facility]avesh [facility] [address] [facility] [place] [address] 01/22/2025 2:30 PM EDT Office Visit Hematology/Oncology [facility] [address] [facility] [place] [phone] Crystal Gilbert CRNP [address] [facility] [place] [phone] Pending Results Name Type Priority Associated Diagnoses Date /Time BASIC METABOLIC PANEL Lab Routine Compensated HCV cirrhosis (HCC) 08/02/2024 10:10 AM EST Scheduled Procedures Name Priority Associated Diagnoses Date/Ti tx ESOPHAGOGASTRODUODENOSCOPY ( EGD), FLEXIBLE, TRANSORAL, DIAGNOSTIC Recall Cirrhosis (HCC) Esophageal varices (HCC) COLONOSCOPY FLEXIBLE PROXIMAL DIAGNOSTIC Recall Screen for colon cancer Health Maintenance Due Date Last Done Comments DISCUSS TOBACCO CESSATION (REFER TO SMARTSET #6814) 1964 HPV/Co-Test 1994 Cologuard 2009 Fecal Occult Blood Test 2009 Sigmoidoscopy 2009 Cervical Cancer Screening 11/11/2023 Pap Smear 11/11/2023 11/10/2020, 11/10/2020 COVID-19 Vaccine ( season) 2024 05/31/2024, 07/11/2023, 03/22/2022, Additional history exists Depression Monitoring 09/14/2024 09/14/2023 Lipid Panel 10/22/2024 10/23/2019 O2 ASSESSMENT COMPLETED IN PAST YEAR FOR COPD 02/07/2025 02/08/2024 Mammogram 02/16/2025 02/17/2024, 06/2 03/2024, 02/15/2023, Additional history exists Pneumococcal Vaccine: Pediatrics (0 to 5 Years) and At-Risk Patients (6 to 64 Years) (3 of 3 - PPSV23 or PCV20) 2029 02/17/2022, 05/19/2019 DTap/Tdap Vaccines (2 - Td [...] as of this encounter Visit Diagnoses Diagnosis Compensated HCV cirrhosis (HCC) Chronic hepatitis C without mention of hepatic coma documented in this encounter Care Teams Aircraft Body Repairer Relationship Specialty Start Date End Date Sumi Dailey DO [address] [place] [address] PCP - General Family Medicine 08/28/18 documented as of this encounter
--- OUTSIDE RECORDS SUMMARY | 2024-11-07 12:39 | External Medical Summary | Summary of Care ---
Author Name Unknown Organization [facility] Address [address] [facility] [address] Phone [phone] Care Team Providers Care Media Intern Name Role Phone Sumi Dailey DO Primary Care Provider [phone] Encounter Details Date Type Department Care Team (Late st Contact Info) Description 07/31/2024 Orders Only PATIENT PORTAL DO NOT DELETE THIS DEPT USED BY [place] [address] Allergies Active Allergy Reactions Criticality Noted Date Comments Codeine Nausea/vomiting 02/08/2017 documented as of this encounter (statuses as of 07/31/2024) Medications folic acid 1 MG Tablet Take [...] as of this encounter (statuses as of 07/31/2024) Active Problems Problem Noted Date Diagnosed Date [...] as of this encounter (statuses as of 07/31/2024) Resolved Problems Problem Noted Date Diagnosed Date Resolved Date Other disorders of bilirubin metabolism 12/27/2022 10/22/2023 COPD, severity to be determined 10/26/2018 12/06/2019 Overview: Per COPD GOLD Classification Chronic hepatitis C without hepatic coma 05/11/2016 11/29/2016 Overview (11/29/2016): HCV treated; SVR confirmed 11/19/2016 documented as of this encounter (statuses as of 07/31/2024) Immunizations Name Administration Dates Next Due COVID-19 mRNA, LNP-s, No Pre serve, 2-Dose Series ([employer]) 09/08/2021,01/10/2021,12/20/2020 COVID-19, LNP-s, No Preserve , Ignacio-sucrose, Ages 12+ ([employer]) 03/22/2022 COVID-19, MRNA-LNP, 24-25, P R, 30MCG/0.3ML, IM, 12YRS AND ABOVE ([employer] 05/31/2024 COVID-19, MRNA-LNP, PF, 30 M CG/0.3 mL, 12 YRS AND ABOVE, IM (OptherionirnatTistagames) 07/11/2023 Hepatitis B, 20+ yrs 05/11/2016 Pneumococcal [...] 10:20 AM EST Office Visit Family Practice [facility] [address] [place] [address] Lila Gallo CRNP [address] [place] [address] 10/17/2024 9:00 AM EST Office Visit Gastroenterology, [facility] [address] [place] [address] Musa Gilbert CRNP [address] [place] [address] 10/22/2024 10:00 AM EST Laboratory Laboratory, [facility] [address] [place] [phone] Bhavesh Bruce [facility] [address] [place] [address] 01/15/2025 10:00 AM EDT Laboratory Laboratory, [facility] [address] [place] [phone] Bhavesh Bruce [address] [place] [address] 01/22/2025 2:30 PM EDT Office Visit Hematology/Oncology [facility] [place] [address] [facility] [address] Crystal Gilbert CRNP [address] [facility] [place] [address] Scheduled Procedures Name Priority Associated Diagnoses Date/Ti me ESOPHAGOGASTRODUODENOSCOPY ( EGD), FLEXIBLE, TRANSORAL, DIAGNOSTIC Recall Cirrhosis (HCC) Esophageal varices (HCC) COLONOSCOPY FLEXIBLE PROXIMAL DIAGNOSTIC Recall Screen for colon cancer Health Maintenance Due Date Last Done Comments DISCUSS TOBACCO CESSATION (REFER TO SMARTSET #6245) 1964 HPV/Co-Test 1994 Cologuard 2009 Fecal Occult Blood Test 2009 Sigmoidoscopy 2009 Cervical Cancer Screening 11/11/2023 Pap Smear 11/11/2023 11/10/2020, 11/10/2020 COVID-19 Vaccine ( season) 2024 05/31/2024, 07/11/2023, 03/22/2022, Additional history exists Depression Monitoring 09/14/2024 09/14/2023 Lipid Panel 10/22/2024 10/23/2019 O2 ASSESSMENT COMPLETED IN PAST YEAR FOR COPD 02/07/2025 02/08/2024 Mammogram 02/16/2025 02/17/2024, 01/21, 02/15/2023, Additional history exists Pneumococcal Vaccine: Pediatrics [...] Not on filedocumented as of this encounter Care Teams Media Intern Relationship Specialty Start Date End Date Sumi Dailey DO [address] [place] [address] PCP - General Family Medicine 08/28/18 documented as of this encounter
--- OUTSIDE RECORDS SUMMARY | 2024-11-07 12:39 | External Medical Summary | Summary of Care ---
Author Name Unknown Organization [facility] Address [address] [place] [address] Phone [phone] Care Team Providers Care Hyperion Administrator Name Role Phone Sumi Dailey DO Primary Care Provider Reason for Visit * Reason Comments Outpatient Testing Encounter Details Date Type Department Care Team (Late st Contact Info) Description 07/21/2024 9:00 AM EST Laboratory Laboratory, [facility] [address] [place] [place] [phone] [facility] [address] [place] [address] Iron deficiency anemia due to chronic blood loss; Alcoholic cirrhosis, unspecified whether ascites present (HCC); Thrombocytopenia (HCC) Allergies Active Allergy Reactions Criticality Noted Date Comments Codeine Nausea/vomiting 02/08/2017 documented as of this encounter (statuses as of 07/21/2024) Medications folic acid 1 MG Tablet Take [...] Blister Dosing Unit 3 12/12/19 24 Active Spironolactone 25 MG Oral Tablet (Aldactone) Take 1 Tablet by mouth in the morning. 90 Tablet 3 04/04/20 24 Active Omeprazole 40 MG Oral Capsule [...] WHEEZING 36 g 1 07/11/20 24 Active documented as of this encounter (statuses as of 07/21/2024) Active Problems Problem Noted Date Diagnosed Date [...] as of this encounter (statuses as of 07/21/2024) Resolved Problems Problem Noted Date Diagnosed Date Resolved Date Other disorders of bilirubin metabolism 12/27/2022 10/22/2023 COPD, severity to be determined 10/26/2018 12/06/2019 Overview: Per COPD GOLD Classification Chronic hepatitis C without hepatic coma 05/11/2016 11/29/2016 Overview (11/29/2016): HCV treated; SVR confirmed 11/19/2016 documented as of this encounter (statuses as of 07/21/2024) Immunizations Name Administration Dates Next Due COVID-19 mRNA, LNP-s, No Pre serve, 2-Dose Series ([employer]) 09/08/2021,01/10/2021,12/20/2020 COVID-19, LNP-s, No Preserve , Ignacio-sucrose, Ages 12+ (Pf[employer]) 03/22/2022 COVID-19, MRNA-LNP, 24-25, P R, 30MCG/0.3ML, IM, 12YRS AND ABOVE ([employer]) 05/31/2024 COVID-19, MRNA-LNP, PF, 30 M CG/0.3 mL, 12 YRS AND ABOVE, IM ([employer]) 07/11/2023 Hepatitis B, 20+ yrs 05/11/2016 Pneumococcal [...] Care Team (Late st Contact Info) Description 07/24/2024 9:30 AM EST Office Visit Hematology/Oncology [facility] [address] [facility], [place] [phone] Crystal Gilbert CRNP [address] [place] [address] 07/26/2024 9:40 AM EST Office Visit Family Practice [facility] [place] [address] Lila Gallo CRNP [address] [place] [address] 10/17/2024 9:00 AM EST Office Visit Gastroenterology, [facility] [address] [place] [address] Musa Gilbert CRNP [address] [place] [address] Pending Results Name Type Priority Associated Diagnoses Date /Time CBC WITH WBC DIFFERENTIAL Lab STAT Iron deficiency anemia due to chronic blood loss 07/21/2024 9:32 AM EST IRON SCREEN, INCLUDING TIBC Lab STAT Iron deficiency anemia due to chronic blood loss 07/21/2024 9:32 AM EST FERRITIN Lab STAT Iron deficiency anemia due to chronic blood loss 07/21/2024 9:32 AM EST COMPREHENSIVE METABOLIC PANEL Lab STAT Iron deficiency anemia due to chronic blood loss Alcoholic cirrhosis, unspecified whether ascites present (HCC) Thrombocytopenia (HCC) 07/21/2024 9:32 AM EST CBC Lab STAT Iron deficiency anemia due to chronic blood loss 07/21/2024 9:32 AM EST DIFFERENTIAL, AUTOMATED Lab STAT Iron deficiency anemia due to chronic blood loss 07/21/2024 9:32 AM EST Scheduled Procedures Name Priority Associated Diagnoses Date/Ti me ESOPHAGOGASTRODUODENOSCOPY ( EGD), FLEXIBLE, TRANSORAL, DIAGNOSTIC Recall Cirrhosis (HCC) Esophageal varices (HCC) COLONOSCOPY FLEXIBLE PROXIMAL DIAGNOSTIC Recall Screen for colon cancer Health Maintenance Due Date Last Done Comments DISCUSS TOBACCO CESSATION (REFER TO SMARTSET #1552) 1964 HPV/Co-Test 1994 Cologuard 2009 Fecal Occult [...] as of this encounter Visit Diagnoses Diagnosis Iron deficiency anemia due to chronic blood loss Iron deficiency anemia secondary to blood loss (chronic) Alcoholic cirrhosis, unspecified whether ascites present (HCC) Thrombocytopenia (HCC) Thrombocytopenia, unspecified documented in this encounter Care Teams Hyperion Administrator Relationship Specialty Start Date End Date Sumi Dailey DO [address] [place] [address] PCP - General Family Medicine 08/28/18 documented as of this encounter
--- OUTSIDE RECORDS SUMMARY | 2024-11-07 12:39 | External Medical Summary | Summary of Care ---
Author Name Unknown Organization [facility] Address [address] [facility] [place] [address] Phone [phone] Care Team Providers Care Medication Assistant Name Role Phone Unavailable Primary Care Provider Unavailabl e Reason for Visit * Reason Comments NEW PATIENT Referral from pcp fo r Skin lesion in groin area * Evaluate & Treat - Unlimited Visits (Within 10 days (routine)) - Authorized Specialty Diagnoses / Procedures Referred By Deniz lopez Referred To Contact Dermatology Diagnoses Skin lesion Lila Gallo CRNP [address] [place] [address] Phone: tel: fax: Referral ID Status Reason Start Date Expiration Date Visits Requested Visits Authorized [id number] Authorized Specialty Services Required 09/06/[phone] Encounter Details Date Type Department Care Team (Late st Contact Info) Description 09/11/2024 2:00 PM EST Office Visit [address] [place] [phone] Jeaneth Pérez PA-C [address] [place] [address] [place] [id number] Seborrheic keratosis*; Open comedone Allergies Active Allergy [...] mRNA, LNP-s, No Pre serve, 2-Dose Series ([employer]) 09/08/2021,01/10/2021,12/20/2020 COVID-19, LNP-s, No Preserve , Ignacio-sucrose, Ages 12+ ([employer]) 03/22/2022 COVID-19, MRNA-LNP, 24-25, P R, 30MCG/0.3ML, IM, 12YRS AND ABOVE ([employer]) 05/31/2024 COVID-19, MRNA-LNP, PF, 30 M CG/0.3 mL, 12 YRS AND ABOVE, IM ([employer]) 07/11/2023 Hepatitis B, 20+ yrs 05/11/2016 Pneumococcal [...] Product examples; Think sport, Think baby, [employer], [employer], [employer], [place] baby. "Baby" products can be used for all ages. documented in this encounter Progress Notes * Jeaneth Pérez PA-C - 09/11/2024 2:00 PM EST SUBJECTIVE: HPI: Jeni Zhu is a 58 year old female seen at the request of STEPHENIE Uribe for evaluation and treatment of R groin lesion. Pt. declined full skin exam. Lesion on R groin crease, present for over 1 year. No tx to date. 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 REVIEW OF SYSTEMS: SKIN: No [...] NONE Reviewed, same day as visit, 0 [facility] Dermatology lab work(s)/pathology report(s) as well as [...] every night at bedtime. 90 Tablet 3 Cetztooucej-Aarpdrzbh-Ddbell 100-62.5-25 MCG/ACT Aerosol Powder Breath Activated (Trelegy [...] Pérez PA-C 09/11/2024 1:58 PM Dermatology, [address] [place] [phone] documented in this encounter Nursing Notes * Lila June LPN - 09/11/2024 1:36 PM EST Patient identified by name and date of . Do you have any concerns about pain management for today's visit? No Living Will or Advance Directive for Health Care as noted on problem list. [facility] is a way you can talk to [...] 12:00 PM EST Office Visit Pulmonary Medicine, [address] [place] [address] [facility] [address] [facility] [address] 10/17/2024 9:00 AM EST Office Visit Gastroenterology, [facility] 132 [facility] [place] [address] Musa Gilbert CRNP 132 [facility] [place] [address] 10/22/2024 10:00 AM EST Laboratory Laboratory, [address] [place] [phone] Bhavesh Bruce [address] [place] [address] 01/31/2025 9:30 AM EDT Laboratory Laboratory, [address] [place] [phone] Bhavesh Bruce [address] [facility] [place] [address] 02/07/2025 11:30 AM EDT Office Visit [facility]ematology/[facility] [address] [place] [phone] Crystal Gilbert CRNP [address] [facility] [place] [address] 04/09/2025 8:40 AM EDT Office Visit Family Practice [facility] [address] [facility] [place] [address] Sumi Dailey DO [address] [facility] [place] [address] Scheduled Procedures Name Priority Associated Diagnoses Date/Ti me ESOPHAGOGASTRODUODENOSCOPY ( EGD), FLEXIBLE, TRANSORAL, DIAGNOSTIC Recall Cirrhosis (HCC) Esophageal varices (HCC) COLONOSCOPY FLEXIBLE PROXIMAL DIAGNOSTIC Recall Screen for colon cancer Health Maintenance Due Date Last Done Comments DISCUSS TOBACCO CESSATION (REFER TO SMARTSET #5680) 1964 HPV/Co-Test 1994 Cologuard 2009 Fecal Occult [...] study not interpreted or resulted by a [facility] or [facility] contracted radiologist. Jeaneth Pérez PA-C RADIOLOGY ([facility] ) Final Result documented in this encounter Visit Diagnoses Diagnosis Seborrheic keratosis- Primary Other seborrheic keratosis Open comedone Other acne documented in this encounter
--- OUTSIDE RECORDS SUMMARY | 2024-11-07 12:39 | External Medical Summary | Summary of Care ---
Author Name Unknown Organization [facility] Address [address] [place] [address] Phone [phone] Care Team Providers Care Staff Developer Name Role Phone Unavailable Primary Care Provider Unavailabl e Reason for Referral * Evaluate & Treat - Unlimited Visits (Within 10 days (routine)) - Authorized Specialty Diagnoses / Procedures Referred By Deniz lopez Referred To Contact Dermatology Diagnoses Skin lesion Lila Gallo CRNP [address] [place] [address] Phone: tel: fax: Referral ID Status Reason Start Date Expiration Date Visits Requested Visits Authorized [id number] Authorized Specialty Services Required 09/06/[phone] [...] 09/06/2024 10:20 AM EST Office Visit Family [facility] [address] [place] [address] Lila Gallo CRNP [address] [place] [address] Screening for cervical cancer*; Skin lesion; COPD, [...] mRNA, LNP-s, No Pre serve, 2-Dose Series ([employer]) 09/08/2021,01/10/2021,12/20/2020 COVID-19, LNP-s, No Preserve , Ignacio-sucrose, Ages 12+ (Pfizer) 03/22/2022 COVID-19, MRNA-LNP, 24-25, P R, 30MCG/0.3ML, IM, 12YRS AND ABOVE ([employer] [facility]) 05/31/2024 COVID-19, MRNA-LNP, PF, 30 M CG/0.3 mL, 12 YRS AND ABOVE, IM ([employer]) 07/11/2023 Hepatitis B, 20+ yrs 05/11/2016 Pneumococcal [...] FOR WHEEZING 36 g 1 COVID-19 mRNA Vac-Ignacio([employer]) 30 MCG/0.3ML Intramuscular Suspension Prefilled Syringe ([employer]) Inject into a large muscle. 0.3 mL 0 Omeprazole 40 MG Oral Capsule Delayed Release ([employer]) One tab each before first meal daily. 90 Capsule 3 Raovdqheaka-Nnzkmrufh-Pxbzaw 100-62.5-25 MCG/ACT Aerosol Powder Breath Activated (Trelegy [...] and Plan Screening for cervical cancer - PERSONAL PROPERTY ASSESSOR PAP SCREEN; Future Skin lesion Exam c/w [...] 8:00 AM EST Office Visit Pulmonary Medicine, [facility] [address] [facility] [place] [phone] Vlad Olmos MD [address] [facility] [place] [address] 10/17/2024 9:00 AM EST Office Visit Gastroenterology, [facility] [address] [place] [address] Musa Gilbert CRNP [address] [place] [address] 10/22/2024 10:00 AM EST Laboratory Laboratory, [facility] [address] [place] [phone] [facility] [address] [place] [address] 01/15/2025 10:00 AM EDT Laboratory Laboratory, [facility] [address] [place] [phone] BruceBhavesh bragg [facility] [address] [place] [address] 04/09/2025 8:40 AM EDT Office Visit Family Practice [facility] [address] [place] [address] Sumi Dailey DO [address] [place] [address] Pending Results Name Type Priority Associated Diagnoses Date /Time PERSONAL PROPERTY ASSESSOR PAP SCREEN Pathology Routine Screening for cervical cancer 09/06/2024 11:10 AM EST Scheduled Orders Name Type Priority Associated Diagnoses Orde r Schedule PERSONAL PROPERTY ASSESSOR PAP SCREEN Pathology Routine Screening for cervical [...] Comments DISCUSS TOBACCO CESSATION (REFER TO SMARTSET #7606) 1964 HPV/Co-Test 1994 Cologuard 2009 Fecal Occult [...]
--- OUTSIDE RECORDS SUMMARY | 2024-11-07 12:39 | External Medical Summary | Summary of Care ---
Author Name Unknown Organization [facility] Address [address] [place] [address] Phone [phone] Care Team Providers Care Antique Repairer Name Role Phone Sumi Dailey DO Primary Care Provider Reason for Visit * Reason Comments Appointment Encounter Details Date Type Department Care Team (Late st Contact Info) Description 07/24/2024 9:30 AM EST Office Visit Hematology/Oncology [facility] [address] [place] [address] Crystal Gilbert CRNP [address] [place] [address] Iron deficiency anemia due to chronic blood loss*; Thrombocytopenia (HCC); Alcoholic cirrhosis, unspecified whether ascites present (HCC) Allergies Active Allergy Reactions Criticality Noted Date Comments Codeine Nausea/vomiting 02/08/2017 documented as of this encounter (statuses as of 07/24/2024) Medications folic acid 1 MG Tablet Take [...] as of this encounter (statuses as of 07/24/2024) Active Problems Problem Noted Date Diagnosed Date [...] as of this encounter (statuses as of 07/24/2024) Resolved Problems Problem Noted Date Diagnosed Date Resolved Date Other disorders of bilirubin metabolism 12/27/2022 10/22/2023 COPD, severity to be determined 10/26/2018 12/06/2019 Overview: Per COPD GOLD Classification Chronic hepatitis C without hepatic coma 05/11/2016 11/29/2016 Overview (11/29/2016): HCV treated; SVR confirmed 11/19/2016 documented as of this encounter (statuses as of 07/24/2024) Immunizations Name Administration Dates Next Due COVID-19 mRNA, LNP-s, No Pre serve, 2-Dose Series (Ketto) 09/08/2021,01/10/2021,12/20/2020 COVID-19, LNP-s, No Preserve , Ignacio-sucrose, Ages 12+ (Pfizer) 03/22/2022 COVID-19, MRNA-LNP, 24-25, P R, 30MCG/0.3ML, IM, 12YRS AND ABOVE (Ketto-Comirnaty) 05/31/2024 COVID-19, MRNA-LNP, PF, 30 M CG/0.3 mL, 12 YRS AND ABOVE, IM ([employer] 07/11/2023 Hepatitis B, 20+ yrs 05/11/2016 Pneumococcal [...] Sign Reading Time Taken Comments Blood Pressure 114/66 07/24/2024 9:27 AM EST Pulse 82 07/24/2024 9:27 AM EST Temperature 36.2 C (97.2 F) 07/24/2024 9:27 AM ES T Respiratory Rate - - Oxygen Saturation 92% 07/24/2024 9:27 AM EST Inhaled Oxygen Concentration - - Weight 56.5 kg (124 lb 8 oz) 07/24/2024 9:27 AM EST Height - - Body Mass Index 21.36 02/08/2024 11:07 AM EDT documented in this encounter Progress Notes * Crystal Gilbert CRNP - 07/24/2024 9:30 AM EST Hematology/Oncology Out[facility] [place], [place] [address] Name: Jeni Zhu Date: 07/23/2024 CHIEF COMPLAINT: Jeni Zhu is a 58 year old female patient of STEPHENIE Rhoades here today for f/u visit today. From Patient chart confirmed with patient. HEMATOLOGY/ONCOLOGY DIAGNOSIS: Pancytopenia HCV/ETOH liver cirrhosis and splenomegaly IVY d/t chronic blood loss - Grade 3 EV present TREATMENT HISTORY: IV Venofer infusions in January and February 2022 and July 2023 IV Venofer 300 mg every other week x 4 doses completed 03/01/24 CURRENT TREATMENT: Observation - intolerant of oral iron HISTORY OF PRESENT ILLNESS: Patient with past medical history of HCV/ETOH liver cirrhosis and splenomegaly. Grade 3 EV present.Has received iron infusions in January 2022 for IVY Patient is having a repeat EGD in October for monitoring of her esophageal varices. Patient denies any signs of abnormal bleeding today including hematemesis, no hemoptysis, no melena or hematochezia. Patient has chronic SOB d/t COPD. This is currently at baseline. Does wear oxygen at night and has re scue inhalers she uses as needed but this is not very often. Does continue to smoke a small amount of cigarettes. Denies dizziness or CP. Does report increased fatigue. [place] much better after the iron infusions but this is slowly starting to decline. Does not take much oral iron d/t adverse GI sideeffects. Denies problems with frequent infections. Is supposed to be taking spironolactone but is not taking it d/t not wanting to urinate so much. Stopped this about 1-2 weeks ago. Has noticed her weight starting to increase. Does take a vitamin b1 and folic acid supplement but only sporadically. Patient has been taking a small amount of tylenol d/t having symptoms of a cold. Does not take this regularly. Does not take NSAIDs. Interval History: EGD 02/08/24: Impression: - Normal esophagus. - Grade I esophageal varices. - Z-line regular. - Moderate - severe portal hypertensive gastropathy (mild oozing with passage of the scope) - Normal duodenal bulb and second portion of the duodenum. Recommendation: - Repeat EGD in 1 year (given she has ascite). - Consider starting Coreg 6.25 mg po daily to aid in reducing portal pressures. HISTORY OF PRESENT ILLNESS: Jeni Zhu is a 58 year old female with a history as outlined above. Currently here for f/u visittoday. Patient is not taking oral iron supplement as it upsets her stomach. Other than a cold is doing well. Has upcoming appointment with family doctor. Energy level has significantly improved sincethe last round of oral iron. Not noticing any melena or hematochezia. Continues to abstain from alcohol. Has cut back on smoking. Has gained about 5 pounds from her baseline. Is unsure if she should increase her spironolactone. Did take 50 mg of spironolactone yesterday. Does have abdominal distention. Past Medical History: Diagnosis Date Acute gastritis Acute pancreatitis Alcoholic cirrhosis (HCC) Alcoholism (HCC) COPD, group B, by GOLD 2017 classification (HCC) 12/03/2019 Per COPD GOLD Classification Depression with anxiety Family history of lung cancer Sister age 65 from lung cancer (Smoker) Hematemesis Hepatitis C Hypokalemia Nicotine dependence Portal hypertension (HCC) 08/25/2018 Protein-calorie malnutrition (HCC) 10/25/2019 Thrombocytopenia (HCC) Past Surgical History: Procedure Laterality Date COLONOSCOPY, DIAGNOSTIC (RECTUM) 03/08/2017 diverticulosis, repeat 10 yrs/COLONOSCOPY FLEXIBLE PROXIMAL DIAGNOSTIC performed by Herbie Bro MD at [facility] COLONOSCOPY, DIAGNOSTIC (RECTUM) 01/26/2021 diverticulosis / COLONOSCOPY FLEXIBLE PROXIMAL DIAGNOSTIC performed by Herbie Bro MD at [facility] COLONOSCOPY, DIAGNOSTIC (RECTUM) 12/14/2022 decompression performed / INPT [facility] EGD, FLEXIBLE, DIAGNOSTIC 03/08/2017 eso varices, portal hypertensive gastropathy/ESOPHAGOGASTRODUODENOSCOPY (EGD), FLEXIBLE, TRANSORAL,DIAGNOSTIC performed by Herbie Bro MD at [facility] EGD, FLEXIBLE, DIAGNOSTIC 10/16/2019 portal gastropathy, eso varices / [facility] EGD, FLEXIBLE, DIAGNOSTIC 01/26/2021 esophageal varices, portal hypertensive gastropathy / ESOPHAGOGASTRODUODENOSCOPY (EGD), FLEXIBLE, TRANSORAL, DIAGNOSTIC performed by Herbie Bro MD at [facility] EGD, FLEXIBLE, DIAGNOSTIC 04/21/2021 esophageal varices, Portal hypertensive gastropathy, hiatal hernia / ESOPHAGOGASTRODUODENOSCOPY (EGD), FLEXIBLE, TRANSORAL, DIAGNOSTIC performed by Herbie Bro MD at [facility] EGD, FLEXIBLE, DIAGNOSTIC 11/23/2021 esophageal varices, portal hypertensive gastropathy, repeat 3 mo / ESOPHAGOGASTRODUODENOSCOPY (EGD), FLEXIBLE, TRANSORAL, DIAGNOSTIC performed by Monique Kowalski MD at [facility] EGD, FLEXIBLE, DIAGNOSTIC 12/30/2021 esophageal varices, portal hypertensive gastropathy, repeat 2 mo / INPT [facility] EGD, FLEXIBLE, DIAGNOSTIC 03/02/2022 esophageal varices, hiatal hernia, portal hypertensive gastropathy, repeat 3 mo / ESOPHAGOGASTRODUODENOSCOPY (EGD), FLEXIBLE, TRANSORAL, DIAGNOSTIC performed by Monique Kowalski MD at [facility] EGD, FLEXIBLE, DIAGNOSTIC 02/07/2023 esophageal varices, portal hypertensive gastropathy, repeat 1 yr / ESOPHAGOGASTRODUODENOSCOPY (EGD), FLEXIBLE, TRANSORAL, DIAGNOSTIC performed by Lilian Roy DO at [facility] EGD, FLEXIBLE, DIAGNOSTIC 02/08/2024 grade I esophageal varices/moderate-severe portal hyperensive gastropathy, mild oozing with passageof scope/recall 1 year/ESOPHAGOGASTRODUODENOSCOPY (EGD), FLEXIBLE, TRANSORAL, DIAGNOSTIC performed by Lisa Beard MD at [facility] EGD, W/ENDOSCOPIC US 03/05/2013 UPPER GI ENDOSCOPY ENDOSCOPIC ULTRASOUND performed by Scarlett Broussard DO at OR [facility], inflammation LIGATE/CUT OVIDUCT(S) AT SURGERY TOTAL HIP REPLACEMENT & PROSTHESIS right Social History Socioeconomic History Marital status: Spouse name: Not on file Number of children: Not on file Years of education: Not on file Highest education level: Not on file Occupational History Not on file Tobacco Use Smoking status: Every Day Current packs/day: 0.00 Average packs/day: 1 pack/day for 38.0 years (38.0 ttl pk-yrs) Types: Cigarettes Start date: 12/02/1984 Last attempt to quit: 12/02/2022 Years since quittin.6 Smokeless tobacco: Never Tobacco comments: HX of smoking 1.5 ppd . 2 cpd. Smoker 12/12/23. Vaping Use Vaping status: Never Used Substance and Sexual Activity Alcohol use: Not Currently Comment: hx of ETOH use: last used 10/25/2022 Drug use: Not Currently Types: Marijuana Comment: in the past, Sexual activity: Yes Partners: Male control/protection: Surgical Comment: BTL Other Topics Concern Not on file Social History Narrative Not on file Social Needs Financial Resource Strain: Not on file Food Insecurity: No Food Insecurity (12/21/2022) Hunger Vital Sign Worried About Running Out of Food in the Last Year: Never true Ran Out of Food in the Last Year: Never true Transportation Needs: Not on file Social Connections: Not on file Housing Stability: Not on file Review of patient's allergies indicates: Allergen Reactions Codeine Nausea/vomiting Current Outpatient Medications Medication Sig Dispense Refill folic acid 1 MG Tablet Take 1 Tab by mouth daily. (Patient not taking: Reported on 10/05/2023) 90 Tab 3 potassium chloride ER 10 MEQ TBCR Take [...] every night at bedtime. 90 Tablet 3 Jvikgezgaxf-Uyaszwnaf-Qighrd 100-62.5-25 MCG/ACT Aerosol Powder Breath Activated (Trelegy Ellipta) Inhale 1 Puff by mouth in the morning. Rinse mouth and gargle with water after use.. 180 Blister Dosing Unit 3 Spironolactone 25 MG Oral Tablet (Aldactone) Take 1 Tablet by mouth in the morning. 90 Tablet 3 Omeprazole 40 MG Oral Capsule Delayed Release (PriLOSEC) One tab each before first meal daily. 90 Capsule 3 COVID-19 mRNA Vac-Ignacio(Ketto) 30 MCG/0.3ML Intramuscular Suspension Prefilled Syringe (Huoshi) Inject into a large muscle. 0.3 mL 0 Albuterol Sulfate HFA 108 (90 Base) MCG/ACT Inhalation Aerosol Solution INHALE 2 PUFFS BY MOUTH EVERY 4 HOURS NEEDED FOR WHEEZING 36 g 1 No current facility-administered medications for this visit. REVIEW OF SYSTEMS: See HPI - otherwise negative OBJECTIVE: Filed Vitals: 07/24/24 0927 BP: 114/66 Pulse: 82 Temp: 36.2 C (97.2 F) TempSrc: Tympanic SpO2: 92% Weight: 56.5 kg (124 lb 8 oz) Wt Readings from Last 5 Encounters: 07/24/24 56.5 kg (124 lb 8 oz) 04/04/24 51 kg (112 lb 6.4 oz) 02/08/24 54 kg (119 lb) 01/05/24 54.3 kg (119 lb 11.2 oz) 12/12/23 53.1 kg (117 lb) PHYSICAL EXAM: General Appearance: No acute distress Lungs/Thorax: Normal - Clear to auscultation Heart: Normal - Regular rate and rhythm, normal S1, S2, no appreciable murmurs Pulses/Extremities: Normal - 2+ throughout and symmetrical, no edema Abdomen: Normal - Softly distended, nontender, +ascites, bowel sounds present Neurologic: Normal - Grossly intact LABS: Results for orders placed or performed in visit on 07/21/24 IRON SCREEN, INCLUDING TIBC Result Value Ref Range Iron 129 33 - 151 ug/dL Iron Binding Capacity 228 (L) 250 - 425 ug/dL Transferrin Saturation Percent 57 (H) 15 - 55 % FERRITIN Result Value Ref Range Ferritin 531 (H) 13 - 150 ng/mL COMPREHENSIVE METABOLIC PANEL Result Value Ref Range BUN 5 (L) 6 - 20 mg/dL CREATININE 0.6 0.5 - 1.0 mg/dL EGFR >90 >=60 mL/min SODIUM 143 135 - 146 mmol/L POTASSIUM 3.4 (L) 3.5 - 5.1 mmol/L CHLORIDE 106 98 - 107 mmol/L CO2 24 22 - 32 mmol/L ANION GAP 13 7 - 15 mmol/L GLUCOSE 113 70 - 120 mg/dL Albumin 3.5 (L) 3.8 - 5.0 g/dL AST 65 (H) 10 - 35 U/L Alkaline Phosphatase 130 35 - 130 U/L Bilirubin, Total 2.1 (H) <=1.2 mg/dL CALCIUM 8.6 8.4 - 10.2 mg/dL Protein 7.5 6.0 - 8.3 g/dL ALT 23 10 - 35 U/L CBC Result Value Ref Range WBC 4.81 4.00 - 10.80 K/uL RBC 3.71 3.85 - 5.15 M/uL HGB 12.9 12.0 - 15.3 g/dL HCT 37.4 36.0 - 45.2 % MCV 100.8 81.5 - 97.5 fL MCH 34.8 27.0 - 34.0 pg MCHC 34.5 32.0 - 36.0 g/dL RDW 17.9 11.5 - 15.5 % PLT 52 (L) 140 - 400 K/uL MPV 11.5 6.6 - 11.1 fL DIFFERENTIAL, AUTOMATED Result Value Ref Range WBC 4.81 4.00 - 10.80 K/uL Neutrophils % 72.1 40.0 - 75.0 % Lymphocytes % 13.3 (L) 18.0 - 42.0 % Monocytes % 7.3 1.0 - 11.0 % Eosinophils % 5.0 0.0 - 6.0 % Basophils % 2.3 (H) 0.0 - 2.0 % Absolute Neutrophils 3.47 1.80 - 7.70 K/uL Absolute Lymphocytes 0.64 (L) 1.00 - 4.80 K/ul Absolute Monocytes 0.35 0.00 - 1.10 K/uL Absolute Eosinophils 0.24 0.00 - 0.70 K/uL Absolute Basophils 0.11 0.00 - 0.20 K/uL DIFFERENTIAL, TECHNOLOGIST REVIEW Result Value Ref Range nRBCs IMPRESSION/PLAN: Pancytopenia HCV/ETOH liver cirrhosis and splenomegaly IVY d/t chronic blood loss - Grade 3 EV present IV Venofer 300 mg every other week x 4 doses completed 03/01/24 Lab results reviewed with patient: Hgb WNL at 12.9 Platelet count stable at 52K Iron studies stable with ferritin 531 and TSAT 57% LFTs stable Pancytopenia likely related to liver disease and splenomegaly Patient intolerant of oral iron Esophageal varices a possible chronic source of blood loss Last EGD 02/08/24 significant for grade 1 EV and moderate-severe portal hypertensive gastropathy. Repeat in one year recommended. Will continue to monitor cbc/diff, iron screen and ferritin every three months Continue to follow with hepatology. Recommended to reach out to provider regarding five pound weight gain and development of abdominal distention. RTC in six months with provider with cbc/diff, cmp, iron screen and ferritin STEPHENIE England documented in this encounter Nursing Notes * Jocelin Olguin MED ASSIST - 07/24/2024 9:29 AM EST Patient identifed by name and birthdate Do you have any concerns about pain management for today's visit? Yes. Patient instructed to discuss pain concerns with provider during the visit today Living Will or Advance Directive for Health Care as noted on the problem list. [facility] is a way you can talk to your provider on line through e-mail. Would you like to sign up? I can activate it for you? ALREADY ACTIVE Filed Vitals: 07/24/24 0927 BP: 114/66 Pulse: 82 Temp: 36.2 C (97.2 F) TempSrc: Tympanic SpO2: 92% Weight: 56.5 kg (124 lb 8 oz) Patient was instructed to not get up on the exam table/exam chair until directed and assisted by their provider; patient is to remain seated in the chair/ wheelchair/ exam table/ exam chair for fall prevention and safety reasons. Patient is aware to have assistance to step down off exam table/exam chair with personnel. Patient voiced full comprehension of instructions. Pt stated she has had a cough and cold for over two weeks. documented in this encounter Plan of Treatment Upcoming Encounters Date Type Department Care Team (Late st Contact Info) Description 09/06/2024 10:20 AM EST Office Visit Family Practice [facility] [address] [place] [address] Lila Gallo CRNP [address] [place] [address] 10/17/2024 9:00 AM EST Office Visit Gastroenterology, [facility] [address] [place] [address] Musa Gilbert CRNP [address] [place] [address] 10/22/2024 10:00 AM EST Laboratory Laboratory, [facility] [address] [place] [phone] Bhavesh Bruce [address] [facility] [place] [address] 01/15/2025 10:00 AM EDT Laboratory Laboratory, [facility] [address] [facility] [place] [phone] BruceBhavesh bragg [address] [facility] [place] [address] 01/22/2025 2:30 PM EDT Office Visit [facility]On[facility] [address] Crystal Gilbert CRNP [address] [place] [address] [place] [address] Scheduled Procedures Name Priority Associated Diagnoses Date/Ti me ESOPHAGOGASTRODUODENOSCOPY ( EGD), FLEXIBLE, TRANSORAL, DIAGNOSTIC Recall Cirrhosis (HCC) Esophageal varices (HCC) COLONOSCOPY FLEXIBLE PROXIMAL DIAGNOSTIC Recall Screen for colon cancer Health Maintenance Due Date Last Done Comments DISCUSS TOBACCO CESSATION (REFER TO SMARTSET #[id number]) 1964 HPV/Co-Test 1994 Cologuard 2009 Fecal Occult [...] Iron deficiency anemia due to chronic blood loss- Primary Iron deficiency anemia secondary to blood loss (chronic) Thrombocytopenia (HCC) Thrombocytopenia, unspecified Alcoholic cirrhosis, unspecified whether ascites present (HCC) documented in this encounter Care Teams Antique Repairer Relationship Specialty Start Date End Date Sumi Dailey DO [address] [place] [address] PCP - General Family Medicine 08/28/18 documented as of this encounter
--- OUTSIDE RECORDS SUMMARY | 2024-11-07 12:39 | External Medical Summary ---
Author Name Unknown Address Unknown Organization K01:LABORATORY [address] [facility] [address] Laboratory Report Ordering Provider Test Date Status CORONA BALDWIN 09/06/2024 11:10:00 Final Observation Date Value Abnormality Reference (Units ) Status Human papilloma virus E6+E7 mRNA [Presence] in Cervix by JELENA with probe detection 09/06/2024 11:10:00 Positive Abnormal Not Applicable Final One or more high/intermediat e-risk Human Papillomavirus (HPV E6/E7 messenger RNA) detected by nucleic acid amplification.

This assay looks for high/intermediate risk Human Papillomavirus (HPV E6/E7 messenger RNA) by nucleic acid amplification. This assay includes the qualitative detection of HPV types 16,18,31,33,35,39,45,51,52,56,58,59,66 and 68 from cervical specimens.
This assay has been FDA cleared for Thin prep collection vials.
This assay has not been approved for use as a primary screening test for HPV and should be tested in conjunction with a PAP screen.
If collected utilizing a Surepath vial, the collection and specimen preparation of this test was developed, and its performance characteristics determined by [employer]. It has not been cleared or approved by the U.S. Food and Drug Administration (FDA). The FDA has determined that such clearance or approval is not necessary.
This assay has been performed at [facility], [address] [place] [address], [place]. [address]. Performing Location LABORATORY [address] [facility] [address]
--- OUTSIDE RECORDS SUMMARY | 2024-11-07 12:40 | External Medical Summary | Summary of Care ---
Author Name Unknown Organization [facility] Address [address] [place] [address] Phone [phone] Care Team Providers Care Data Engineer Name Role Phone Sumi Dailey DO Primary Care Provider Reason for Visit * Reason Onset Date Comments Immunizations Medication Administration 05/31/2024 Flu an d/or Pneumo Inj Encounter Details Date Type Department Care Team (Late st Contact Info) Description 05/31/2024 10:00 AM EDT Immunization Ancillary [facility] [address] [facility] [place] [address] [facility] [address] [facility] [place] [address] Need for prophylactic vaccination and inoculation against influenza* Allergies Active Allergy Reactions Criticality Noted Date Comments Codeine Nausea/vomiting 02/08/2017 documented as of this encounter (statuses as of 05/31/2024) Medications Medication Sig Dispensed Refills Start Date End Date Status folic acid 1 MG Tablet Take 1 Tab by mouth daily. 90 Tab 3 05/19/2019 Active Additional Information Patient not taking.Reported on [...] Active Cyclobenzaprine HCl 5 MG Oral Tablet (Flexeril)Indication s:Acute bilateral thoracic back pain TAKE 1 TABLET BY MOUTH ONCE DAILY NEEDED FOR MUSCLE SPASM 90 Tablet 1 06/10/2022 Active hydrOXYzine HCl 25 MG Oral TabletIndications:An xiety Take 1 Tablet by mouth every night at bedtime. 90 Tablet 3 08/17/2022 Active Albuterol Sulfate HFA 108 (90 Base) MCG/ACT Inhalation Aerosol SolutionIndications: COPD, group D, by GOLD 2017 classification ([facility]) Inhale 2 Puffs by mouth every 4 hours as needed for Wheezing. 36 g 3 02/15/2023 Active Fluticasone-Umeclidi n-Vilant 100-62.5-25 MCG/ACT Aerosol Powder Breath Activated (Trelegy Ellipta) Inhale 1 Puff by mouth in the morning. Rinse mouth and gargle with water after use.. 180 Blister Dosing Unit 3 12/12/2023 Active Spironolactone 25 MG Oral Tablet (Aldactone) Take 1 Tablet by mouth in the morning. 90 Tablet 3 04/04/2024 Active Omeprazole 40 MG Oral Capsule Delayed Release (PriLOSEC)Indication s:Secondary esophageal varices with bleeding (HCC) One tab each before first meal daily. 90 Capsule 3 04/04/2024 Active documented as of this encounter (statuses as of 05/31/2024) Active Problems Problem Noted Date Diagnosed Date Alcoholic cirrhosis of liver without ascites 09/2023 Other pancytopenia 10/22/2023 Family history of lung cancer 06/07/2023 Overview: Sister age 65 from lung cancer (Smoker) [...] 02/08/2017 Hepatitis C antibody test positive 11/29/2016 Overview: HCV treated; SVR confirmed 11/19/2016 documented as of this encounter (statuses as of 05/31/2024) Resolved Problems Problem Noted Date Diagnosed Date Resolved Date Other disorders of bilirubin metabolism 12/27/2022 10/22/2023 COPD, severity to be determined 10/26/2018 12/06/2019 Overview: Per COPD GOLD Classification Chronic hepatitis C without hepatic coma 05/11/2016 11/29/2016 Overview: HCV treated; SVR confirmed 11/19/2016 documented as of this encounter (statuses as of 05/31/2024) Immunizations Name Administration Dates Next Due COVID-19 mRNA, LNP-s, No Pre serve, 2-Dose Series ([id number]) 09/08/2021,01/10/2021,12/20/2020 COVID-19, LNP-s, No Preserve , Ignacio-sucrose, Ages 12+ (Pfizer) 03/22/2022 COVID-19, MRNA-LNP, 23-24, P F, 30 MCG/0.3 mL, 12 YRS AND ABOVE, IM ([employer]) 07/11/2023 COVID-19, MRNA-LNP, 24-25, P R, 30MCG/0.3ML, IM, 12YRS AND ABOVE ([id number]-[employer]) 05/31/2024 Hepatitis B, 20+ yrs 05/11/2016 Pneumococcal Conjugate [...] money to get more. Never true 12/21/2022 Sex and Gender Information Value Date Recorded Sex Assigned at Not on file Gender Identity Not on file Sexual Orientation Not on file Job Start Date Occupation Industry Not on file Not on file Not on file documented as of this encounter Patient Instructions * Patient Instructions* Cynthia Laws LPN - 05/31/2024 10:14 AM EDT ~~PATIENT INSTRUCTIONS FOR FLU SHOT~~ Possible side effects of influenza vaccine, (flu shot), are usually mild and include: 1. Soreness or redness at injection site 2. Low grade fever 3. Body aches You may use Tylenol/Acetaminophen as needed for these symptoms. LET YOUR DOCTOR KNOW IMMEDIATELY IF YOU HAVE DIFFICULTY BREATHING OR SWALLOWING, EXPERIENCE ITCHINGOF FEET OR HANDS, HAVE SWELLING OF EYES, FACE OR INSIDE OF NOSE. documented in this encounter Progress Notes * Cynthia Laws LPN - 05/31/2024 10:14 AM EDT PRE - ADMINISTRATION DOCUMENTATION Are you experiencing any cold symptoms or fever? No Have you had Guillain-Gualala Syndrome (an illness that causes paralysis) within the last 6 weeks? No Have you had the flu shot in the past? YES Have you ever had a reaction to the flu shot? No Cynthia Laws LPN, 05/31/2024 10:14 AM Immunization Administration Documentation Time Out Procedure Performed: Yes Patient Identified (Ask Name/Date of ): Yes Does the patient have a fever greater than 101 degrees today? No Patient allergic to latex? No VFC Stock: No Immunization(s) verified: Yes, Immunization Name: Flu, VIS Sheet(s) given: Yes Verified Side and Site: Yes Verified Shot(s) with Parent(s)/Patient: Yes documented in this encounter Plan of Treatment Upcoming Encounters Date Type Department Care Team (Late st Contact Info) Description 07/02/2024 8:45 AM EST Imaging Radiology [facility] [address] [facility] [place] [address] 07/05/2024 10:00 AM EST Laboratory Laboratory, [address] [place] [address] [facility] [address] [facility] [place] [address] 07/12/2024 8:30 AM EST Office Visit Hematology/Oncology [facility] [address] Crystal Gilbert CRNP [address] [facility] [place] [address] 07/16/2024 11:20 AM EST Office Visit Pulmonary Medicine, [facility] 132 [facility] [place] [address] Esau Arreola DO [address] [place] [address] 07/26/2024 9:40 AM EST Office Visit Family Practice [facility] [address] [place] [address] Lila Gallo CRNP [address] [place] [address] 10/17/2024 9:00 AM EST Office Visit Gastroenterology, [facility] [address] [place] [address] Musa Gilbert CRNP [address] [place] [address] Scheduled Procedures Name Priority Associated Diagnoses Date/Ti me ESOPHAGOGASTRODUODENOSCOPY ( EGD), FLEXIBLE, TRANSORAL, DIAGNOSTIC Recall Cirrhosis (HCC) Esophageal varices (HCC) COLONOSCOPY FLEXIBLE PROXIMAL DIAGNOSTIC Recall Screen for colon cancer Health Maintenance Due Date Last Done Comments DISCUSS TOBACCO CESSATION (REFER TO SMARTSET #9221) 1964 HPV/Co-Test 1994 Cologuard 2009 Fecal Occult Blood Test 2009 Sigmoidoscopy 2009 Cervical Cancer Screening 11/11/2023 Pap Smear 11/11/2023 11/10/2020, 11/10/2020 Depression Monitoring 09/14/2024 09/14/2023 Lipid Panel 10/22/2024 10/23/2019 O2 ASSESSMENT COMPLETED IN PAST YEAR FOR COPD 02/07/2025 02/08/2024 Mammogram 02/16/2025 02/17/2024, 01/21, 08/27/2020, Additional history exists Pneumococcal Vaccine: Pediatrics (0 [...] 11/21/2023 , 11/15/2022, 02/09/2022, Additional history exists COVID-19 Vaccine Completed 05/31/2024, , 03/22/2022, Additional history exists Influenza Vaccine (FLU shot) Completed 05/2024, 05/12/2023, 08/17/2022, Additional history exists HPV (Gardasil) Vaccine Aged Out No lo nger eligible based on patient's age to complete this topic MENINGOCOCCAL (MENACTRA/MENVEO) Aged Out No longer eligible based on patient's age to complete this topic documented as of this encounter Medical Devices Not on filedocumented as of this encounter Visit Diagnoses Diagnosis Need for prophylactic vaccination and inoculation against influenza- Primary documented in this encounter Care Teams Data Engineer Relationship Specialty Start Date End Date Sumi Dailey DO [address] [place] [address] PCP - General Family Medicine 08/28/18 documented as of this encounter
--- OUTSIDE RECORDS SUMMARY | 2024-11-07 12:40 | External Medical Summary ---
Author Name Unknown Address Unknown Organization [id number]:[facility] [address] - [address] [place] [address] Laboratory Report Ordering Provider Test Date Status LAWRENCE EVANS 07/21/2024 09:32:14 Final Observation Date Value Abnormality Reference (Units ) Status WBC, Total 07/21/2024 09:32:14 4.81 4.00-10.8 0 (K/uL) Final RBC 07/21/2024 09:32:14 3.71 3.85-5.15 (M/uL) Final Hemoglobin 07/21/2024 09:32:14 12.9 12.0-15.3 (g/dL) Final HCT 07/21/2024 09:32:14 37.4 36.0-45.2 (%) Final MCV 07/21/2024 09:32:14 100.8 81.5-97.5 (fL) Final MCH 07/21/2024 09:32:14 34.8 27.0-34.0 (pg) Final MCHC 07/21/2024 09:32:14 34.5 32.0-36.0 (g/dL) Final RDW 07/21/2024 09:32:14 17.9 11.5-15.5 (%) Final Platelets 07/21/2024 09:32:14 52 Below low normal 140 -400 (K/uL) Final MPV 07/21/2024 09:32:14 11.5 6.6-11.1 ( fL) Final Performing Location [facility] - [address] [place] [address]
--- OUTSIDE RECORDS SUMMARY | 2024-11-07 12:40 | External Medical Summary ---
Author Name Unknown Address Unknown Organization K0G:[facility] [place] [facility] - [address] [place] [address] Laboratory Report Ordering Provider Test Date Status LAWRENCE EVANS 07/21/2024 09:32:14 Final Observation Date Value Abnormality Reference (Units ) Status SYNC LEUKOCYTES IN BLOOD BY AUTOMATED COUNT 07/21/2024 09:32:14 4.81 4.00-10.80 (K/uL) Final Segs 07/21/2024 09:32:14 72.1 40.0-75.0 (%) Final Lymphs % 07/21/2024 09:32:14 13.3 Below low normal 18.0-42.0 (%) Final Monos 07/21/2024 09:32:14 7.3 1.0-11.0 (%) Final Eosinophils 07/21/2024 09:32:14 5.0 0.0-6.0 (%) Final Basos 07/21/2024 09:32:14 2.3 Above high normal 0.0-2.0 (%) Final Absolute Segs 07/21/2024 09:32:14 3.47 1.80-7.70 (K/uL) Final Lymphs, absolute 07/21/2024 09:32:14 0.64 Below low normal 1.00-4.80 (K/ul) Final Monos, Abs 07/21/2024 09:32:14 0.35 0.00-1.10 (K/uL) Final Eos, Abs 07/21/2024 09:32:14 0.24 0.00-0.70 (K/uL) Final Basos, Abs 07/21/2024 09:32:14 0.11 0.00-0.20 (K/uL) Final Performing Location [facility] - [address] [place] [address]
--- OUTSIDE RECORDS SUMMARY | 2024-11-07 12:40 | External Medical Summary | Summary of Care ---
Author Name Unknown Organization [facility] Address [address] [facility] [address] Phone [phone] Care Team Providers Care Heel Slugger Name Role Phone Etienne Mcguire DO Primary Care Provider [phone] Reason for Visit * Reason Comments eRx-Medication Refill Encounter Details Date Type Department Care Team (Late st Contact Info) Description 07/10/2024 Refill Family Practice [facility] [address] [place] [address] tEienne Mcguire DO [address] [place] [address] COPD, group D, by GOLD 2017 classification ([facility]) Allergies Active Allergy Reactions Criticality Noted Date Comments Codeine Nausea/vomiting 02/08/2017 documented as of this encounter (statuses as of 07/11/2024) Medications folic acid 1 MG Tablet Take 1 Tab by mouth daily. 90 Tab 3 019 Active Additional Information Patient not taking.Reported on [...] Active Cyclobenzaprine HCl 5 MG Oral Tablet (Flexeril)Indicat ions:Acute bilateral thoracic back pain TAKE 1 TABLET BY MOUTH ONCE DAILY NEEDED FOR MUSCLE SPASM 90 Tablet 1 022 Active hydrOXYzine HCl 25 MG Oral TabletIndications :Anxiety Take 1 Tablet by mouth every night at bedtime. 90 Tablet 3 022 Active Fluticasone-Umecl idin-Vilant 100-62.5-25 MCG/ACT Aerosol Powder Breath Activated (Trelegy Ellipta) Inhale 1 Puff by mouth in the morning. Rinse mouth and gargle with water after use.. 180 Blister Dosing Unit 3 024 Active Spironolactone 25 MG Oral Tablet (Aldactone) Take 1 Tablet by mouth in the morning. 90 Tablet 3 024 Active Omeprazole 40 MG Oral Capsule Delayed Release (PriLOSEC)Indicat ions:Secondary esophageal varices with bleeding (HCC) One tab each before first meal daily. 90 Capsule 3 024 Active Albuterol Sulfate HFA 108 (90 Base) MCG/ACT Inhalation Aerosol SolutionIndicatio ns:COPD, group D, by GOLD 2017 classification (HCC) INHALE 2 PUFFS BY MOUTH EVERY 4 HOURS NEEDED FOR WHEEZING 36 g 1 024 Active Albuterol Sulfate HFA 108 (90 Base) MCG/ACT Inhalation Aerosol SolutionIndicatio ns:COPD, group D, by GOLD 2017 classification ([facility]) INHALE 2 PUFFS BY MOUTH EVERY 4 HOURS NEEDED FOR WHEEZING 36 g 024 2023 Discontinued documented as of this encounter (statuses as of 07/11/2024) Active Problems Problem Noted Date Diagnosed Date [...] as of this encounter (statuses as of 07/11/2024) Resolved Problems Problem Noted Date Diagnosed Date Resolved Date Other disorders of bilirubin metabolism 12/27/2022 10/22/2023 COPD, severity to be determined 10/26/2018 12/06/2019 Overview: Per COPD GOLD Classification Chronic hepatitis C without hepatic coma 05/11/2016 11/29/2016 Overview (11/29/2016): HCV treated; SVR confirmed 11/19/2016 documented as of this encounter (statuses as of 07/11/2024) Immunizations Name Administration Dates Next Due COVID-19 mRNA, LNP-s, No Pre serve, 2-Dose Series ([employer]) 09/08/2021,01/10/2021,12/20/2020 COVID-19, LNP-s, No Preserve , Ignacio-sucrose, Ages 12+ (Pfizer) 03/22/2022 COVID-19, MRNA-LNP, 24-25, P R, 30MCG/0.3ML, IM, 12YRS AND ABOVE ([employer]) 05/31/2024 COVID-19, MRNA-LNP, PF, 30 M CG/0.3 mL, 12 YRS AND ABOVE, IM ([employer]) 07/11/2023 Hepatitis B, 20+ yrs 05/11/2016 Pneumococcal [...] encounter Miscellaneous Notes * Telephone Encounter - Kimberley Velez [facility] - 07/11/2024 1:36 PM ESTSigned Prescriptions: Disp Refills Albuterol Sulfate HFA 108 (90 Base) MCG/AC*36 g 1 Sig: INHALE 2 PUFFS BY MOUTH EVERY 4 HOURS NEEDED FOR WHEEZINGAuthorizing Provider: ETIENNE MCGUIRE User: KIMBERLEY VELEZ documented in this encounter Plan of Treatment Upcoming Encounters Date Type Department Care Team (Late st Contact Info) Description 07/16/2024 11:20 AM EST Office Visit Pulmonary Medicine, [facility] 132 [facility] [place] [address] Esau Arreola DO [address] [place] [address] 07/20/2024 9:45 AM EST [facility] 132 [facility] [place] [address] 07/21/2024 9:00 AM EST Laboratory Laboratory, [facility] 132 [facility] [place] [phone] [facility] [address] [facility] [place] [address] 07/24/2024 9:30 AM EST Office Visit Hematology/Oncology [facility] [phone] Crystal Gilbert CRNP [address] [place] [address] 07/26/2024 9:40 AM EST Office Visit Family Practice [facility] 132 [facility] [place] [address] Lila Gallo CRNP 132 [facility] [place] [address] 10/17/2024 9:00 AM EST Office Visit Gastroenterology, [facility] [address] [facility] [place] [address] Musa Gilbert CRNP [address] [place] [address] Scheduled Procedures Name Priority Associated Diagnoses Date/Ti me ESOPHAGOGASTRODUODENOSCOPY ( EGD), FLEXIBLE, TRANSORAL, DIAGNOSTIC Recall Cirrhosis (HCC) Esophageal varices (HCC) COLONOSCOPY FLEXIBLE PROXIMAL DIAGNOSTIC Recall Screen for colon cancer Health Maintenance Due Date Last Done Comments DISCUSS TOBACCO CESSATION (REFER TO SMARTSET #5749) 1964 HPV/Co-Test 1994 Cologuard 2009 Fecal Occult Blood Test 2009 Sigmoidoscopy 2009 Cervical Cancer Screening 11/11/2023 Pap Smear 11/11/2023 11/10/2020, 11/10/2020 COVID-19 Vaccine ( season) 2024 05/31/2024, 07/11/2023, 03/22/2022, Additional history exists Depression Monitoring 09/14/2024 09/14/2023 Lipid Panel 10/22/2024 10/23/2019 O2 ASSESSMENT COMPLETED IN PAST YEAR FOR COPD 02/07/2025 02/08/2024 Mammogram 02/16/2025 02/17/2024, 0602/2023, 08/27/2020, Additional history exists Pneumococcal Vaccine: Pediatrics [...] COPD, group D, by GOLD 2017 classification ([facility]) documented in this encounter Care Teams Heel Slugger Relationship Specialty Start Date End Date Etienne Mcguire DO [address] [place] [address] PCP - General Family Medicine 08/28/18 documented as of this encounter
--- OUTSIDE RECORDS SUMMARY | 2024-11-07 12:40 | External Medical Summary ---
Author Name Unknown Address Unknown Organization K01:[facility] - [address] [facility] [address] Laboratory Report Ordering Provider Test Date Status LAWRENCE EVANS 07/21/2024 09:32:14 Final Observation Date Value Abnormality Reference (Units ) Status Ferritin 07/21/2024 09:32:14 531 Above high normal 13 -150 (ng/mL) Final Postmenopausal women have hi gher ferritin levels than pre-menopausal women. The above reference interval is based on pre-menopausal women. Performing Location [facility]ATORY C - [address] [facility] [address]
--- OUTSIDE RECORDS SUMMARY | 2024-11-07 12:40 | External Medical Summary | Summary of Care ---
Author Name Unknown Organization [facility] Address [address] [place] [address] Phone [phone] Care Team Providers Care Parish Nurse Name Role Phone Etienne Mcguire DO Primary Care Provider [phone] Reason for Visit * Reason Comments eRx-Medication Refill Encounter Details Date Type Department Care Team (Late st Contact Info) Description 06/09/2024 Refill Family Practice [facility] [address] [place] [address] Etienne Mcguire DO [address] [place] [address] COPD, group D, by GOLD 2017 classification ([facility]) Allergies Active Allergy Reactions Criticality Noted Date Comments Codeine Nausea/vomiting 02/08/2017 documented as of this encounter (statuses as of 06/09/2024) Medications Medication Sig Dispensed Refills Start Date End Date Status folic acid 1 MG Tablet Take 1 Tab by mouth daily. 90 Tab 3 9 Active Additional Information Patient not taking.Reported on [...] 180 Blister Dosing Unit 3 4 Active Spironolactone 25 MG Oral Tablet (Aldactone) Take 1 Tablet by mouth in the morning. 90 Tablet 3 4 Active Omeprazole 40 MG Oral Capsule Delayed Release (PriLOSEC)Indicatio ns:Secondary esophageal varices with bleeding (HCC) One tab each before first meal daily. 90 Capsule 3 4 Active Albuterol Sulfate HFA 108 (90 Base) MCG/ACT Inhalation Aerosol SolutionIndications :COPD, group D, by GOLD 2017 classification (HCC) INHALE 2 PUFFS BY MOUTH EVERY 4 HOURS NEEDED FOR WHEEZING 36 g 4 Active Albuterol Sulfate HFA 108 (90 Base) MCG/ACT Inhalation Aerosol SolutionIndications :COPD, group D, by GOLD 2017 classification (HCC) Inhale 2 Puffs by mouth every 4 hours as needed for Wheezing. 36 g 3 3 06/09/20 24 Discontinued documented as of this encounter (statuses as of 06/09/2024) Active Problems Problem Noted Date Diagnosed Date [...] as of this encounter (statuses as of 06/09/2024) Resolved Problems Problem Noted Date Diagnosed Date Resolved Date Other disorders of bilirubin metabolism 12/27/2022 10/22/2023 COPD, severity to be determined 10/26/2018 12/06/2019 Overview: Per COPD GOLD Classification Chronic hepatitis C without hepatic coma 05/11/2016 11/29/2016 Overview: HCV treated; SVR confirmed 11/19/2016 documented as of this encounter (statuses as of 06/09/2024) Immunizations Name Administration Dates Next Due COVID-19 mRNA, LNP-s, No Pre serve, 2-Dose Series ([employer]) 09/08/2021,01/10/2021,12/20/2020 COVID-19, LNP-s, No Preserve , Ignacio-sucrose, Ages 12+ (Pfizer) 03/22/2022 COVID-19, MRNA-LNP, 23-24, P F, 30 MCG/0.3 mL, 12 YRS AND ABOVE, IM ([employer]) 07/11/2023 COVID-19, MRNA-LNP, 24-25, P R, 30MCG/0.3ML, IM, 12YRS AND ABOVE ([employer]Comirnat[employer]) 05/31/2024 Hepatitis B, 20+ yrs 05/11/2016 Pneumococcal [...] encounter Miscellaneous Notes * Telephone Encounter - Marta Lopes [facility] - 06/09/2024 2:11 PM EDTSigned Prescriptions: Disp Refills Albuterol Sulfate HFA 108 (90 Base) MCG/AC*36 g 0 Sig: INHALE 2 PUFFS BY MOUTH EVERY 4 HOURS NEEDED FOR WHEEZINGAuthorizing Provider: ETIENNE MCGUIRE User: MARTA LOPES documented in this encounter Plan of Treatment Upcoming Encounters Date Type Department Care Team (Late st Contact Info) Description 07/02/2024 8:45 AM EST Imaging Radiology [facility] 132 [facility] [place] [address] 07/05/2024 10:00 AM EST Laboratory Laboratory, [facility] [address] [facility] [place] [phone] [facility] [address] [facility] [place] [address] 07/12/2024 8:30 AM EST Office Visit Hematology/Oncology [facility] 200 [facility] [phone] Crystal Gilbert CRNP [address] [place] [address] 07/16/2024 11:20 AM EST Office Visit Pulmonary Medicine, [facility] 132 [facility] [place] [address] Esau Arreola DO [address] [place] [address] 07/26/2024 9:40 AM EST Office Visit Family Practice [facility] 132 [facility] [place] [address] Lila Gallo CRNP 132 [facility] [place] [address] 10/17/2024 9:00 AM EST Office Visit Gastroenterology, [facility] 132 [facility] [place] [address] Musa Gilbert CRNP [address] [place] [address] Scheduled Procedures Name Priority Associated Diagnoses Date/Ti me ESOPHAGOGASTRODUODENOSCOPY ( EGD), FLEXIBLE, TRANSORAL, DIAGNOSTIC Recall Cirrhosis (HCC) Esophageal varices (HCC) COLONOSCOPY FLEXIBLE PROXIMAL DIAGNOSTIC Recall Screen for colon cancer Health Maintenance Due Date Last Done Comments DISCUSS TOBACCO CESSATION (REFER TO SMARTSET #7609) 1964 HPV/Co-Test 1994 Cologuard 2009 Fecal Occult Blood Test 2009 Sigmoidoscopy 2009 Cervical Cancer Screening 11/11/2023 Pap Smear 11/11/2023 11/10/2020, 11/10/2020 Depression Monitoring 09/14/2024 09/14/2023 Lipid Panel 10/22/2024 10/23/2019 O2 ASSESSMENT COMPLETED IN PAST YEAR FOR COPD 02/07/2025 02/08/2024 Mammogram 02/16/2025 02/17/2024, 06/2 02/2023, 08/27/2020, Additional history exists Pneumococcal Vaccine: Pediatrics (0 to 5 Years) and At-Risk Patients (6 to 64 Years) (3 of 3 - PPSV23 or PCV20) 2029 02/17/2022, 05/19/2019 DTap/Tdap Vaccines (2 - Td or Tdap) 04/16/2030 04/16/2020 Colonoscopy 12/14/2032 12/14/2022, 060 02/2021, 01/26/2021, Additional history exists Colorectal Cancer [...] COPD, group D, by GOLD 2017 classification ([facility]) documented in this encounter Care Teams Parish Nurse Relationship Specialty Start Date End Date Etienne Mcguire DO [address] [place] [address] PCP - General Family Medicine 08/28/18 documented as of this encounter
--- OUTSIDE RECORDS SUMMARY | 2024-11-07 12:40 | External Medical Summary ---
Author Name Unknown Address Unknown Organization [id number]:[facility]ATORY [facility] - [address] [place] [address] Laboratory Report Ordering Provider Test Date Status LAWRENCE EVANS 07/21/2024 09:32:14 Final Observation Date Value Abnormality Reference (Units ) Status Iron 07/21/2024 09:32:14 129 33-151 (ug/dL) Final Iron-binding capacity 07/21/2024 09:32:14 228 Below low normal 250-425 (ug/dL) Final Transferrin Sat % 07/21/2024 09:32:14 57 Above high normal 15-55 (%) Final Performing Location LAB[facility]ORY [facility] - [address] [place] [address]
--- OUTSIDE RECORDS SUMMARY | 2024-11-07 12:40 | External Medical Summary ---
Author Name Unknown Address Unknown Organization [facility] [address] [place] [id number] Laboratory Report Ordering Provider Test Date Status LAWRENCE EVANS 07/21/2024 09:32:14 Final Observation Date Value Abnormality Reference (Units ) Status BUN 07/21/2024 09:32:14 5 Below low normal 6-20 (mg/dL) Final Creatinine 07/21/2024 09:32:14 0.6 0.5-1.0 (mg/dL) Final Glomerular filtration rate/1.73 sq M.predicted [Volume Rate/Area] in Serum, Plasma or Blood by Creatinine-based formula (CKD-EPI) 07/21/2024 09:32:14 >90 >=60 (mL/min) Final eGFR is calculated based on the CKD-EPI 2020 equation. Sodium 07/21/2024 09:32:14 143 135-146 (m mol/L) Final Potassium 07/21/2024 09:32:14 3.4 Below low normal 3.5 -5.1 (mmol/L) Final Cl 07/21/2024 09:32:14 106 98-107 (mm ol/L) Final CO2 07/21/2024 09:32:14 24 22-32 (mmo l/L) Final Anion gap 07/21/2024 09:32:14 13 7-15 (mmol /L) Final Glucose 07/21/2024 09:32:14 113 70-120 (mg /dL) Final Albumin 07/21/2024 09:32:14 3.5 Below low normal 3.8 -5.0 (g/dL) Final AST (Aspartate aminotransferase) 07/21/2024 09:32:14 65 Above high normal 10-35 (U/L) Final Alk Phos 07/21/2024 09:32:14 130 35-130 (U/ L) Final Bilirubin, Total 07/21/2024 09:32:14 2.1 Above high no rmal <=1.2 (mg/dL) Final Calcium 07/21/2024 09:32:14 8.6 8.4-10.2 ( mg/dL) Final Protein 07/21/2024 09:32:14 7.5 6.0-8.3 (g /dL) Final ALT (Alanine aminotransferase) 07/21/2024 09:32:14 23 10-35 (U/L) Osorio winston Performing Location [facility] [address] [place] [address]
[2024-11-07] MEDS ORDERED: MAGNESIUM HYDROXIDE SUSP 30 ML UDC PO PRN (13:48)
[2024-11-07] MEDS ORDERED: POLYETHYLENE (MIRALAX) 17 GM PACK PO PRN (13:48)
[2024-11-07] MEDS ORDERED: PROMETHAZINE 6.25 MG/50.25 ML BAG IV PRN (13:48)
[2024-11-07] MEDS ORDERED: ALBUT/IPRATROP 3MG/0.5MG NEB 3 ML VIAL NEB PRN (13:55)
--- NOTE | 2024-11-07 14:37 | Ultrasound Report ---
Ultrasound-guided paracentesis INDICATION: Ascites PROCEDURE: Procedure and risks were explained. Informed consent was obtained. A final timeout was com pleted. The left lower quadrant was prepped and draped in sterile fashion. 1% buffered lidocaine was utilized for skin anesthesia. Utilizing ultrasound guidance, a 5 Kazakh safety centesis catheter was advanced into the pocket of anthony terry. Ultrasound images were obtained. 5 L of yellow ascites fluid was removed, with 1 L sent to the lab for analysis. The catheter was then removed and Band-Aid applied. The patient tolerated the proc edure well. Vital signs will be monitored prior to discharge. IMPRESSION: Ultrasound-guided paracentesis as detailed above. Performed, dictated, and signed by Berny Bales PA-C; to be co-signed by Dr. Sterling Malloy. Electronically signed by: Sterling Malloy M.D. 11/07/2024 3:32 PM
[2024-11-07] MEDS: LACTULOSE SYRUP 30 GM/45 ML UDP PO SCH (15:18)
[2024-11-07 15:32] LABS: Appearance Peritoneal Fluid Hazy; Color Peritoneal Fluid Yellow; RBC Peritoneal Fluid Auto < 2000 /uL; WBC Peritoneal Fluid Auto 243 /ul (0-300)
[2024-11-07 15:40] LABS: Albumin Peritoneal Fluid < 1.5 gm/dl; Amylase Peritoneal Fluid 12 U/L; Glucose Peritoneal Fluid 106 mg/dl; LDH Peritoneal Fluid 42 U/L; Lipase Peritoneal Fluid 18 U/L; Total Protein Peritoneal Fluid < 3.0 gm/dl
[2024-11-07] MEDS: KETOROLAC TROMETHAMINE 15 MG/ML VIAL IV PRN (16:01)
--- NOTE | 2024-11-07 18:31 | Gastrointestinal Consultation ---
Date of Consultation November 07, 2024 Assessment & Plan (1) Cirrhosis: (2) Ascites: (3) Portal hypertension: Plan Patient with COPD, chronic constipation/history [place]'s; alcohol/HCV cirrhosis decompensated with ascites, portal hypertension/varices admitted for exacerbation of abdominal distention and discomfort; appears to have had contributions from both increased ascites and undercontrolled constipation. MELD 3.0 = 13 -Await ascitic fluid studies -Aggressive elimination of constipation with MiraLAX/lactulose -Discuss slow upward titration of diuretics, with careful monitoring of renal function. -Discuss timing of variceal surveillance EGD; likely due soon; similarly discuss timing of updated adequately prepped colonoscopy surveillance. -Continue abstinence and monitoring of liver function, liver imaging. History of Present Illness Reason for Consultation: Cirrhosis Attending Physician: Mayco Myers, DO History of Present Illness Patient with COPD, chronic constipation, alcohol/HCV cirrhosis complicated by portal hypertension/ascites/esophageal varices admitted for increasing abdominal distention/discomfort. Had been doing well until the last several days when these symptoms progressed leading to reduced oral intake. Recently increased spironolactone from 50 to 100 mg and added 20 mg furosemide. Had not required paracentesis in about 1 year. Also on MiraLAX twice per day and intermittent Dulcolax. Abstinent from alcohol for over 1 year and has had SVR response to HCV therapy. History of esophageal bleeding varices with banding in 2022 and last exam earlier in January 2024 showing grade 1 varices/portal gastropathy. Had Reena's type syndrome in 2022; latest colonoscopy that year had retained stool. Denies encephalopathy history. Feeling much improved since paracentesis earlier today. Allergies Allergy/AdvReac Type Severity Reaction Status Date / Time codeine AdvReac Severe upset Verified 11/07/24 11:30 stomach Home Medications Medication Instructions Recorded Confirmed Type albuterol sulfate 90 mcg/actuation 2 puff inhalation Q4 PRN Wheezing 01/08/19 11/07/24 History aerosol inhaler omeprazole 40 mg capsule,delayed 40 mg PO DAILY 10/30/19 11/07/24 History release cyclobenzaprine 5 mg tablet 5 mg PO DAILY PRN MUSCLE SPASMS 03/28/21 11/07/24 History multivitamin 1 tab PO DAILY 12/29/21 11/07/24 History thiamine HCl (vitamin B1) 100 mg 100 mg PO DAILY 12/29/21 11/07/24 History tablet bisacodyl 5 mg tablet,delayed 10 mg (2 x 5 mg) PO HS #60 tabs 12/15/22 11/07/24 Rx release (Dulcolax (bisacodyl)) furosemide 20 mg tablet 20 mg PO QAM #30 tabs 12/15/22 11/07/24 Rx polyethylene glycol 3350 17 gram 17 g PO BID #60 doses 12/15/22 11/07/24 Rx oral powder packet (Miralax) spironolactone 100 mg tablet 100 mg PO QAM #30 tabs 12/15/22 11/07/24 Rx fluticasone fur. 100 mcg-umeclid 1 inh inhalation QAM 11/07/24 11/07/24 History 62.5 mcg-vilant 25 mcg inhalat.powder (Trelegy Ellipta) Patient History Medical History Alcohol abuse Alcoholic cirrhosis Hypokalemia Anxiety and depression Surgical History History of total right hip replacement History of tubal ligation Family History Mother Cervical cancer Social History Smoking Status: Current some day smoker Tobacco Type: Cigarettes Cigarettes Per Day: recently quit; Second Hand Exposure: No; Do You Dip or Chew Tobacco: No; Tobacco Cessation Education Requested by Patient: No Hx Alcohol Use: No Hx Substance Use: No Preferred Language: [place] Communication Ability: Effective Benefits Technician Required: No Beliefs That Will Affect Care: None marital status: Current Living Situation: Spouse Other Information That Helps Us Care for You: No Feels Safe at Home: Yes Safety Concerns: Feels Safe At This Time Assistive Devices: None Review of Systems Constitutional: no problem reported Eyes: no worsening vision Ear, Nose, Mouth, Throat: no problem reported Respiratory: + dyspnea (chronic) Cardiovascular: no problem reported Gastrointestinal: as per Subjective / HPI Genitourinary: no difficulty urinating Musculoskeletal: no problem reported Integumentary: no lesions Neurologic: no confusion Psychiatric: no behavioral changes Physical Exam Constitutional: WD/WN, vitals as above Eyes: PERRL, conjunctivae normal, anicteric sclerae ENMT: external ear and nose normal, oropharynx normal Neck: trachea midline, no thyromegaly Respiratory: normal respiratory effort, lungs clear to auscultation Cardiovascular: RRR, no murmur, no edema Gastrointestinal (Abdomen): Inspection/Auscultation: + abdomen distended (mild) Percussion/Palpation: abdomen nontender Skin: No liver stigmata Neurologic: awake; not confused Psychiatric: A+Ox3, euthymic affect Results & Data Vital Signs (Past 12 Hours) Vital Signs Temp Pulse Pulse Resp BP BP Pulse Ox 11/07/24 16:34 36.7 C 98 H 18 101/66 98 11/07/24 16:04 36.5 C 92 H 18 112/55 L 98 11/07/24 15:34 36.7 C 88 20 101/72 98 11/07/24 15:11 36.6 C 67 18 117/73 91 11/07/24 14:56 36.7 C 79 20 118/71 11/07/24 14:23 84 11/07/24 13:48 11/07/24 12:43 95 H 19 119/72 90 11/07/24 11:14 83 17 126/74 93 11/07/24 09:46 77 18 93 11/07/24 09:43 85 11/07/24 09:17 36.8 C 92 H 18 113/69 92 11/07/24 09:14 76 18 117/86 94 Pulse Ox O2 Del Method O2 Del Method 11/07/24 16:34 Room Air 11/07/24 16:04 Room Air 11/07/24 15:34 Room Air 11/07/24 15:11 Room Air 11/07/24 14:56 Room Air 11/07/24 14:23 11/07/24 13:48 96 Room Air 11/07/24 12:43 Room Air 11/07/24 11:14 Room Air 11/07/24 09:46 Room Air 11/07/24 09:43 11/07/24 09:17 Room Air 11/07/24 09:14 Room Air PG Care Time/CCT Total # of Minutes Spent Total Time Spent with Patient: Total time spent is greater than 50% in coordination of care (as documented) at patient's floor/unit and/or counseling patient: Coding Level of Care Code 17657 IN/OBS CONSULT LVL 4,60M Medical Decision Making Moderate Complexity Diagnoses Cirrhosis K70.31 Ascites presence: with ascites Hepatic cirrhosis type: alcoholic cirrhosis Ascites K70.31 Ascites type: due to alcoholic cirrhosis Portal hypertension K76.6 Time Spent (min) 60 (1) Cirrhosis Ascites presence: with ascites Hepatic cirrhosis type: alcoholic cirrhosis Qualified Code(s): K70.31 - Alcoholic cirrhosis of liver with ascites (2) Ascites Ascites type: due to alcoholic cirrhosis Qualified Code(s): K70.31 - Alcoholic cirrhosis of liver with ascites
[2024-11-07] MEDS: bisacodyL 5 MG TABEC PO SCH (22:18)
[2024-11-08] MEDS: ALBUMIN 25% 25 GM/100 ML VIAL IV ONE ×2 (01:02→13:20)
[2024-11-08 06:06] LABS: Hematocrit (blood only) 30.2 % (37.0-47.0); Hemoglobin 9.8 g/dl (12.0-16.0); Mean Corpuscular Hemoglobin 32.6 pg (25.0-34.0); Mean Corpuscular Hgb Conc 32.5 g/dL (32.0-36.0); Mean Corpuscular Volume 100.3 fL (80.0-100.0); Mean Platelet Volume 11.6 fL (9.4-12.4); Platelet Count 115 K/uL (130-400); RDW Standard Deviation 66.8 fL (36.4-46.3); Red Blood Count 3.01 M/uL (4.20-5.40)
[2024-11-08 06:15] LABS: Albumin Globulin Ratio 0.9 (0.9-2); Albumin Level 2.9 gm/dl (3.4-5.0); BUN Creatinine Ratio 14.5 (10-20); Bilirubin,Total 1.6 mg/dl (0.2-1.0); Calcium 8.1 mg/dl (8.6-10.3); Creatinine Clr Calc Pharmacy 75.4 ml/min; Globulin 3.3 gm/dl (2.5-4.0); Magnesium 1.8 mg/dl (1.7-2.4); Potassium 4.2 mmol/L (3.5-5.1); Total Protein 6.2 gm/dl (6.0-8.3)
[2024-11-08 08:03] LABS: Lymphocytes, Fluid 7 %; Mono,Macrophage,Mesothelial 72 %; Neutrophils, Fluid 21 %
[2024-11-08] MEDS: FUROSEMIDE 20 MG TAB PO SCH (08:05)
[2024-11-08] MEDS: SPIRONOLACTONE 100 MG TAB PO SCH (08:05)
[2024-11-08] MEDS: MULTIVITAMIN TAB PO SCH (08:05)
[2024-11-08] MEDS: UMECLIDINIUM/VILANTEROL 62.5/25MCG 7 PUFFS/INHALER INH SCH (08:06)
[2024-11-08] MEDS: PANTOprazole 40 MG TAB PO SCH (08:06)
[2024-11-08] MEDS: FLUTICASONE FUROATE 100MCG 14 PUFFS/INHALER INH SCH (08:06)
[2024-11-08] MEDS: THIAMINE HCL 100 MG TAB PO SCH (08:06)
[2024-11-08] MEDS: LIDOCAINE 5% 1 PATCH TD SCH (08:10)
[2024-11-08] MEDS ORDERED: NON-FORMULARY MEDICATION (Fluticasone-Umeclidin-Vilanter [Trelegy Ellipta] 100-62.5-25 mcg INH SCH (09:00)
[2024-11-08] MEDS: POTASSIUM CHLORIDE CRTAB 20 MEQ TABCR PO SCH (09:10)
--- NOTE | 2024-11-08 11:19 | Gastroenterology Progress Note ---
<Statement entered by Mitchel Morris MD - 11/08/24 16:59> I have reviewed the history, physical exam, lab and imaging findings as dictated by the mid-level provider, made any necessary modifications, and agree with the stated assessment and recommendations. A total of 30 minutes was spent in the review, direct observation, decision making and discussion of this case with the patient/family and other providers. Mitchel Morris MD Date of Service November 08, 2024 Assessment & Plan (1) Cirrhosis: (2) Chronic constipation: Plan MELD 10. -Await final cultures from ascitic fluid studies; OK to discharge if clinically stable given status and negative cell count -Continue bowel regimen with MiraLAX/lactulose -Upwardly titrate diuretics as tolerated; can be done in follow up; continue to monitor renal panel -Can discuss the need for EGD variceal surveillance and colonoscopy monitoring with her outpatient GI/hepatology team at [facility]. -Continue abstinence as well as monitoring of liver function, liver imaging, and HCC surveillance per outpatient GI/hepatology team at [facility]. Admission and Anticipated Discharge Date Admission Date: November 07, 2024 Subjective Patient is a 58 yo female with HCV cirrhosis with ascites and chronic constipation. She underwent a paracentesis on 11/07 with removal of 5 L. She notes she is feeling better since her paracentesis. Fluid studies thus far are without acute concern. Patient is moving her bowels. She denies acute issues. Review of Systems Gastrointestinal: no abdominal pain and no constipation Physical Exam Gastrointestinal (Abdomen): Percussion/Palpation: abdomen soft; abdomen nontender Results & Data Results & Data Vital Signs (Past 12 Hours) Vital Signs Temp Pulse Pulse Resp BP Pulse Ox O2 Del Method 11/08/24 10:53 37.1 C 88 16 93/58 L 93 Nasal Cannula 11/08/24 08:47 Nasal Cannula 11/08/24 07:42 36.7 C 96 H 17 94/59 L 93 Nasal Cannula 11/08/24 05:53 81 11/08/24 05:10 83 17 96/51 L 93 Room Air 11/08/24 02:45 37.1 C 86 17 98/50 L 92 Room Air O2 Flow Rate 11/08/24 10:53 2 11/08/24 08:47 2 11/08/24 07:42 2 11/08/24 05:53 11/08/24 05:10 11/08/24 02:45 PG Care Time/CCT Total # of Minutes Spent Total Time Spent with Patient: Total time spent is greater than 50% in coordination of care (as documented) at patient's floor/unit and/or counseling patient: Coding Level of Care Code 68118 SUB INP/OBS CARE 3/50MIN Diagnoses Cirrhosis K70.31 Ascites presence: with ascites Hepatic cirrhosis type: alcoholic cirrhosis Chronic constipation K59.09 (1) Cirrhosis Ascites presence: with ascites Hepatic cirrhosis type: alcoholic cirrhosis Qualified Code(s): K70.31 - Alcoholic cirrhosis of liver with ascites
--- NOTE | 2024-11-08 13:11 | Hospitalist Progress Note ---
Date of Service November 08, 2024 Assessment & Plan Admission and Anticipated Discharge Date Admission Date: November 07, 2024 Results & Data Results & Data Vital Signs (Past 12 Hours) Vital Signs Temp Pulse Pulse Resp BP Pulse Ox O2 Del Method 11/08/24 10:53 37.1 C 88 16 93/58 L 93 Nasal Cannula 11/08/24 08:47 Nasal Cannula 11/08/24 07:42 36.7 C 96 H 17 94/59 L 93 Nasal Cannula 11/08/24 05:53 81 11/08/24 05:10 83 17 96/51 L 93 Room Air 11/08/24 02:45 37.1 C 86 17 98/50 L 92 Room Air O2 Flow Rate 11/08/24 10:53 2 11/08/24 08:47 2 11/08/24 07:42 2 11/08/24 05:53 11/08/24 05:10 11/08/24 02:45
[2024-11-08 15:39] VITALS: BP 111/68
--- NOTE | 2024-11-08 15:48 | Discharge Summary ---
Discharge Summary Date of Service November 08, 2024 Principal Dx & Hospital Course #1 = Principal Diagnosis Notes For Next Care Provider Medication Changes From Visit Lasix 40mg daily- with BP parameters Admission HPI Per Admitting Provider Jeni Zhu is a 58y/o F with PMHx significant for COPD, nocturnal hypoxemia, history of alcohol abuse, alcoholic cirrhosis, hepatitis C treated using Harvoni with sustained virologic response, portal hypertensive gastropathy, grade I esophageal varices, pancytopenia, chronic constipation, protein-calorie malnutrition and depression with anxiety who presented to the ED from home with complaint of abdominal distention/fluid accumulation and constipation. History obtained from the patient, discussion with ED provider and associated chart review. Follows with [facility]. MELD score = 11 points today. HCV/EtOH cirrhosis; last ETOH use was November 14, 2022. Regarding HCV, treated with Harvoni, sustained virologic response attained. Notes increasing abdominal distention and swelling over the past week. Recently contacted her GI provider 2 days ago regarding this through [employer]. Her dose of Aldactone was increased from 50mg daily to 100mg daily. She was also restarted on Lasix 20mg daily. Mentions she was on Lasix in the past but stopped it due to hypokalemia. Notes compliance with these diuretic changes, which she started taking yesterday, but unfortunately no improvement in her abdominal distention and swelling. No fevers. No tenderness with palpation of her abdomen. Notes having an appetite but "feeling too full to eat." No bowel movement in the past 3-4 days. Notes chronic constipation issues. Has been using both Miralax and Dulcolax. Attempted an enema at home yesterday with only minimal stool output. No nausea or vomiting. Has a chronic nonproductive cough. Denies any lightheadedness or dizziness. Former alcoholic. Has not had an alcoholic beverage since October 2022. Current cigarette smoker and has been since her teenage years. Trying to cut back. Now smoking about 1/2-1 pack every 1-2 weeks. Denies need for nicotine patch. Mentions she has not undergone paracentesis since her previous admission here back in November 2022. She is endorsing some low back pain but notes this started after she developed the abdominal distention. Denies any SOB. Uses 2L via NC HS due to nocturnal hypoxemia but no supplemental oxygen requirement during the day. Took all of her home medications this morning. Decompensations Varices: S/p banding with f/u EGD in January 2024 with Grade I EV which were not banded. On omeprazole 40mg daily. Ascites/Edema: Dose of Aldactone increased to 100mg daily on 11/05/24. Also restarted Lasix 20mg daily on 11/05/24 as directed by GI. Screenings HCC: Most recent liver imaging US December 2023 w/o focal lesion. EGD, January 2024: Normal esophagus, grade I esophageal varices, Z-line regular, moderate to severe portal hypertensive gastropathy (mild oozing with passage of the scope) and normal duodenal bulb and second portion of the duodenum. Abdominal US, December 2023: Cirrhosis with portal hypertension and mild ascites, no focal hepatic lesion identified. Cholelithiasis. VSS on admission. Initial laboratory evaluation reviewed. Hgb stable at 11.7 (baseline around 10-12). Hypokalemia with K+ of 3.4 but otherwise electrolytes are stable. Mild transaminitis with AST 47, alk phos 123 and total bilirubin 2.1; lipase appears chronically elevated in the setting of underlying cirrhosis. Contacted Satinder Bales PA-C with interventional radiology via [employer]. Planning to hopefully perform paracentesis today. Updated Medication List Medication Instructions Recorded Confirmed Type albuterol sulfate 90 mcg/actuation 2 puff inhalation Q4 PRN Wheezing 01/08/19 11/07/24 History aerosol inhaler omeprazole 40 mg capsule,delayed 40 mg PO DAILY 10/30/19 11/07/24 History release cyclobenzaprine 5 mg tablet 5 mg PO DAILY PRN MUSCLE SPASMS 03/28/21 11/07/24 History multivitamin 1 tab PO DAILY 12/29/21 11/07/24 History thiamine HCl (vitamin B1) 100 mg 100 mg PO DAILY 12/29/21 11/07/24 History tablet bisacodyl 5 mg tablet,delayed 10 mg (2 x 5 mg) PO HS #60 tabs 12/15/22 11/07/24 Rx release (Dulcolax (bisacodyl)) furosemide 20 mg tablet 20 mg PO QAM #30 tabs 12/15/22 11/07/24 Rx polyethylene glycol 3350 17 gram 17 g PO BID #60 doses 12/15/22 11/07/24 Rx oral powder packet (Miralax) spironolactone 100 mg tablet 100 mg PO QAM #30 tabs 12/15/22 11/07/24 Rx fluticasone fur. 100 mcg-umeclid 1 inh inhalation QAM 11/07/24 11/07/24 History 62.5 mcg-vilant 25 mcg inhalat.powder (Trelegy Ellipta) furosemide 20 mg tablet 40 mg (2 x 20 mg) PO QAM #60 tabs 11/08/24 Rx Hospital Stay Data Consultations 11/07/24 10:48 ED Decision to Admit Stat Diagnostic Imagining Performed 11/07/24 11:54 IR paracentesis abd w/img US Stat Pending Results Patient Have Any Pending Studies at Discharge: No Discharge Instructions Given to Patient (Per Discharging Provider) Jeni, You were admitted and treated for ascites related to your known diagnosis of cirrhosis. 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 Gastroenterology, Dr Morris recommended that we increase your home lasix dose to 40mg (2 tablets) daily to be taken with your spironolactone 100mg at home. As we discussed, please monitor your blood pressure at home with your home blood pressure machine and if the top number is consistently below 100 please decrease your lasix dose to only ONE Lasix tablet (20mg). You will need close follow up with your GI[facility]Hepatology team at [facility]. An appointment has been set up for you. Please also keep close follow up with your primary care provider after discharge. An appointment for that has been set up for you as well. Please do not hesitate to come back to the emergency room if your symptoms worsen or return. It was a pleasure taking care of you while you were here.
[2024-11-08 15:49] VITALS: PULSE 83; RESP 18; TEMP 98.2; O2SAT 92
== END 2024-11-08 16:22 | disposition home or self-care (01) | DRG 433 ==
LOC: ED 09:14 → 2N 11:11 → SUATTDRO 11:11 → 2N 13:10

== ENCOUNTER 2025-03-22 08:29 | Inpatient (IN) ==
[2025-03-22] MEDS ORDERED: SODIUM CHLORIDE 0.9% 100 ML IV PRN ×4 (08:44→10:59)
--- NOTE | 2025-03-22 08:50 | Emergency Department Note ---
ED DC CONDITION Conditon at Discharge Condition at Discharge: Critical Impression & Plan Acute blood loss anemia, Bleeding esophageal varices, Hemorrhagic shock ED Provider Note Name: SERGIO MCCRARY Age: 59 Sex: Female Arrives Via: Walk-In Informant: Patient, ED Provider: Avtar Dickson MD Chief Complaint: Vomiting blood Impression: As per impressions above Medical Decision Makin-year-old female chronically unwell arrives for evaluation of vomiting blood. She is mildly hypotensive on arrival with mild tachycardia. She has known esophageal varices and vomited a large amount of blood in triage. POC BMP does show hemoglobin of 7. Transfusion indicated 1 unit PRBC ordered and a second crossmatched. She was given IV octreotide, IV Protonix, IV Zofran, IV fluids along with IV Rocephin as she is a known cirrhotic with varices. Laboratory workup started coming back showing an elevated white blood cell count along with the anemia. I do not feel the white blood cell count elevation is consistent with true sepsis as she is afebrile and has had previous leukemoid reactions like this on other visits. Patient with soft nontender abdomen and no respiratory distress. Patient's blood pressure somewhat stabilized. I discussed the case with gastroenterology who did evaluate the patient at bedside and will plan to take her to the endoscopy lab. Hospitalist was also consulted to make them aware and they will be admitting the patient. Many repeat evaluations the patient throughout her stay. She is tolerating the IV blood transfusion. Triage/Nursing Notes reviewed by Me External Chart Review by me: I did review the discharge summary from 02/06/2025 during recent hospitalization for past medical history Differential:Diverticulosis, AVM, coagulopathy, colitis, inflammatory bowel disease, malignancy, Viola-Darby tear, esophagitis, peptic ulcer disease, variceal bleed, gastritis, epistaxis, fissure, hemorrhoids, as well as other pathologies. Vital Signs: reviewed and remarkable for tachycardia, hypotensive Interventions: Normal saline bolus, 1 unit PRBC, octreotide IV, Protonix IV, Zofran IV, morphine IV (this was given for chronic low back pain discomfort when vomiting) Labs:ED labs Reviewed by me and remarkable for anemia amongst others EKG:As per my interpretation. Indication vomiting blood and preop. Normal sinus rhythm at 90 bpm QTc of 464. There is no ectopy nor ischemia. When compared to EKG of February 05, 2025 there is no significant change. Cardiac/Tele Monitoring: Cardiac Monitoring: An Order was placed for continuous cardiac monitoring. The monitor shows a rate of 90 with a normal sinus rhythm. Consults:Discussed with both. Dr Greene of GI was consulted and plan to take to endo, Dr Rivera of Hosptialists consulted and will admit Plan: Disposition:Hospitalization. Condition: Critical History of Present Illness: 59-year-old female arrives for evaluation of vomiting blood. Patient notes she was going to come into the hospital for paracentesis this morning due to her cirrhosis. She had started vomiting up some blood yesterday. This morning had multiple large bloody emesis. Notes the vomiting is made the pain from her compression fractures in her thoracic spine worse. She does some mild shortness of breath but chronically uses oxygen. Patient with a history of cirrhosis and previous GI bleed. Known varices. She notes abdominal discomfort, nausea and vomiting. Denies any specific headache, chest pain nor shortness of breath beyond her typical baseline. Past Medical History:See Below of note patient with known cirrhosis secondary to EtOH and hep C, esophageal varices status post banding in December 2024, portal hypertension, recurrent ascites, COPD, tobacco use, thrombocytopenia Home Medications:See Below Allergies:See Below Vitals:Blood Pressure: 92/69, Pulse 91, RR 20, T 36.7C, O2 96% on 4L NC Physical Exam: GENERAL: Patient is unwell/pale appearing and in mild distress. RESPIRATORY: No dyspnea. Clear to auscultation and equal bilaterally. CARDIOVASCULAR: Regular rate and rhythm.No murmur appreciated. GASTROINTESTINAL: Distended fluid-filled abdomen nonspecific tenderness throughout. EXTREMITIES: Normal motion all extremities, no cyanosis, no edema. NEUROLOGIC: Alert and oriented. No focal neurologic deficits appreciated SKIN: Pale, no rash, no jaundice, no diaphoresis. PSYCH: Appropriate GCS: 15 ED Course: Times/Reassessments: Multiple repeat evaluations. Patient improved with fluids and blood is not transfusing Critical Care: I have personally spent 35 minutes of critical care time in the direct management of this patient. Acute variceal bleed with acute blood loss anemia/hypotension requiring resuscitation and transfer to OR. This was a life/limb threatening event. This 35 minutes is in excess of all separately billable procedures. Avtar Dickson MD Past Med/Surg History Problem List (Updated 03/22/25 @ 17:38 by Avtar Dickson MD) Hemorrhagic shock (Acute) Bleeding esophageal varices (Acute) Hematemesis Acute on chronic back pain Hypomagnesemia (Acute) Fluid overload (Acute) Pedal edema (Acute) Ascites (Acute) SOB (shortness of breath) (Acute) Compression fx, thoracic spine Acute blood loss anemia (Acute) Hepatopulmonary syndrome Chronic bronchitis Acute respiratory failure with hypoxia Fall (Acute) Closed fracture of right hip (Acute) Cirrhosis (Acute) Chronic constipation Tobacco use disorder Decompensated cirrhosis Encounter for pre-operative examination Abdominal pain (Acute) Total bilirubin, elevated (Acute) Abdominal pain Injury of left leg (Acute) Encounter for pre-operative examination Ascites (Acute) Alcoholic cirrhosis (Acute) Melena DVT prophylaxis Portal hypertension COPD (chronic obstructive pulmonary disease) Transaminitis (Acute) Thrombocytopenia (Acute) Cirrhosis of liver (Chronic 11/21/12) Medical History COPD with emphysema Anemia Ascites Pancytopenia Hx of esophageal varices Acute upper gastrointestinal bleeding Hepatitis C treated with [facility] in [facility] pt is now negative Alcohol abuse Per pt none in 2 years Alcoholic cirrhosis Surgical History Hx of pelvic surgery History of tubal ligation Family History Mother Cervical cancer Social History Smoking Status: Former smoker Tobacco Type: Cigarettes Cigarettes Per Day: recently quit; Second Hand Exposure: No; Do You Dip or Chew Tobacco: No; Tobacco Cessation Education Requested by Patient: No Hx Alcohol Use: No Hx Substance Use: No Preferred Language: [place] Communication Ability: Effective 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 100 mcg-umeclid 100 inh inhalation QAM 11/07/24 03/22/25 62.5 mcg-vilant 25 mcg inhalat.powder (Trelegy Ellipta) docusate sodium 100 mg capsule 100 mg PO BID PRN Constipation 01/10/25 03/22/25 oxycodone 5 mg tablet 5 mg PO BID PRN Pain, Severe 03/22/25 03/22/25 Previous Rx's Medication Instructions Recorded spironolactone 100 mg tablet 100 mg PO QAM #30 tabs 12/15/22 furosemide 20 mg tablet 40 mg (2 x 20 mg) PO QAM #60 tabs 11/08/24 lidocaine 5 % topical patch 1 patch transdermal HS #30 ea 01/25/25 pantoprazole 40 mg tablet,delayed 40 mg PO DAILYBB #30 tabs 02/06/25 release Results & Data (ED) Vital Signs Vital Signs - 24 hr 03/22/25 08:31 03/22/25 09:15 03/22/25 09:15 Temperature 36.7 C Temperature Source Temporal Artery Scan Pulse Rate 91 H Pulse Rate [Apical] 81 84 Pulse Rate from SpO2 Sensor Respiratory Rate 20 20 17 Respiratory Effort / Characteristics Non-Labored Spontaneous Non-Labored Spontaneous Respiratory Depth Normal Normal Blood Pressure 92/69 L Blood Pressure [Right Arm] 107/61 107/61 Blood Pressure Mean 76 Blood Pressure Mean [Right Arm] 76 76 Blood Pressure Position [Right Arm] Lying Lying Pulse Oximetry 96 98 97 Oxygen Delivery Method Nasal Cannula Nasal Cannula Nasal Cannula Oxygen Flow Rate 4 4 4 Sepsis New/Unexplained Change in Mental Status No Sepsis Action Taken by Nursing No Action Required 03/22/25 09:21 03/22/25 09:24 03/22/25 09:30 Temperature Temperature Source Pulse Rate 84 83 Pulse Rate [Apical] 83 Pulse Rate from SpO2 Sensor 84 Respiratory Rate 17 16 Respiratory Effort / Characteristics Non-Labored Spontaneous Respiratory Depth Normal Blood Pressure Blood Pressure [Right Arm] 110/40 L Blood Pressure Mean Blood Pressure Mean [Right Arm] 63 Blood Pressure Position [Right Arm] Lying Pulse Oximetry 99 98 Oxygen Delivery Method Nasal Cannula Nasal Cannula Oxygen Flow Rate 4 4 Sepsis New/Unexplained Change in Mental Status Sepsis Action Taken by Nursing 03/22/25 09:31 03/22/25 09:36 03/22/25 09:42 Temperature Temperature Source Pulse Rate 85 81 Pulse Rate [Apical] Pulse Rate from SpO2 Sensor 86 81 Respiratory Rate 17 17 Respiratory Effort / Characteristics Respiratory Depth Blood Pressure 110/40 L Blood Pressure [Right Arm] Blood Pressure Mean 63 Blood Pressure Mean [Right Arm] Blood Pressure Position [Right Arm] Pulse Oximetry 97 98 Oxygen Delivery Method Nasal Cannula Nasal Cannula Oxygen Flow Rate 4 4 Sepsis New/Unexplained Change in Mental Status Sepsis Action Taken by Nursing 03/22/25 09:45 03/22/25 09:45 03/22/25 10:00 Temperature Temperature Source Pulse Rate Pulse Rate [Apical] 89 84 Pulse Rate from SpO2 Sensor Respiratory Rate 18 18 Respiratory Effort / Characteristics Non-Labored Spontaneous Non-Labored Spontaneous Respiratory Depth Normal Normal Blood Pressure 96/75 L Blood Pressure [Right Arm] 96/75 L 110/62 Blood Pressure Mean 80 Blood Pressure Mean [Right Arm] 82 78 Blood Pressure Position [Right Arm] Lying Lying Pulse Oximetry 98 96 Oxygen Delivery Method Nasal Cannula Nasal Cannula Oxygen Flow Rate 4 4 Sepsis New/Unexplained Change in Mental Status Sepsis Action Taken by Nursing 03/22/25 10:00 03/22/25 10:00 03/22/25 10:03 Temperature Temperature Source Pulse Rate 93 H Pulse Rate [Apical] Pulse Rate from SpO2 Sensor 93 H Respiratory Rate 19 Respiratory Effort / Characteristics Respiratory Depth Blood Pressure 100/62 100/62 Blood Pressure [Right Arm] Blood Pressure Mean 71 71 Blood Pressure Mean [Right Arm] Blood Pressure Position [Right Arm] Pulse Oximetry 94 Oxygen Delivery Method Room Air Oxygen Flow Rate 4 Sepsis New/Unexplained Change in Mental Status Sepsis Action Taken by Nursing 03/22/25 10:06 03/22/25 10:15 03/22/25 10:15 Temperature 36.6 C Temperature Source Oral Pulse Rate 90 90 Pulse Rate [Apical] 87 Pulse Rate from SpO2 Sensor 90 Respiratory Rate 21 18 18 Respiratory Effort / Characteristics Non-Labored Spontaneous Respiratory Depth Normal Blood Pressure 90/68 L Blood Pressure [Right Arm] 96/68 L Blood Pressure Mean 75 Blood Pressure Mean [Right Arm] 77 Blood Pressure Position [Right Arm] Sitting Pulse Oximetry 97 96 95 Oxygen Delivery Method Nasal Cannula Oxygen Flow Rate 4 6 4 Sepsis New/Unexplained Change in Mental Status Sepsis Action Taken by Nursing 03/22/25 10:15 03/22/25 10:15 03/22/25 10:18 Temperature Temperature Source Pulse Rate 82 Pulse Rate [Apical] Pulse Rate from SpO2 Sensor 82 Respiratory Rate 15 Respiratory Effort / Characteristics Respiratory Depth Blood Pressure 90/68 L 90/68 L Blood Pressure [Right Arm] Blood Pressure Mean 81 81 Blood Pressure Mean [Right Arm] Blood Pressure Position [Right Arm] Pulse Oximetry 96 Oxygen Delivery Method Nasal Cannula Oxygen Flow Rate 4 Sepsis New/Unexplained Change in Mental Status Sepsis Action Taken by Nursing 03/22/25 10:27 03/22/25 10:30 03/22/25 10:30 Temperature 36.6 C Temperature Source Oral Pulse Rate 85 85 Pulse Rate [Apical] Pulse Rate from SpO2 Sensor 83 Respiratory Rate 15 18 Respiratory Effort / Characteristics Respiratory Depth Blood Pressure 98/67 L 98/67 L Blood Pressure [Right Arm] Blood Pressure Mean 77 72 Blood Pressure Mean [Right Arm] Blood Pressure Position [Right Arm] Pulse Oximetry 97 98 Oxygen Delivery Method Nasal Cannula Oxygen Flow Rate 4 6 Sepsis New/Unexplained Change in Mental Status Sepsis Action Taken by Nursing 03/22/25 10:45 03/22/25 10:45 03/22/25 10:45 Temperature 36.7 C Temperature Source Oral Pulse Rate 83 79 Pulse Rate [Apical] Pulse Rate from SpO2 Sensor 78 Respiratory Rate 18 12 Respiratory Effort / Characteristics Respiratory Depth Blood Pressure 107/82 107/82 Blood Pressure [Right Arm] Blood Pressure Mean 90 93 Blood Pressure Mean [Right Arm] Blood Pressure Position [Right Arm] Pulse Oximetry 99 99 Oxygen Delivery Method Nasal Cannula Oxygen Flow Rate 6 4 Sepsis New/Unexplained Change in Mental Status Sepsis Action Taken by Nursing 03/22/25 10:57 03/22/25 11:01 03/22/25 11:01 Temperature Temperature Source Pulse Rate 80 Pulse Rate [Apical] Pulse Rate from SpO2 Sensor 80 Respiratory Rate 12 Respiratory Effort / Characteristics Respiratory Depth Blood Pressure 117/66 117/66 Blood Pressure [Right Arm] Blood Pressure Mean 79 79 Blood Pressure Mean [Right Arm] Blood Pressure Position [Right Arm] Pulse Oximetry 99 Oxygen Delivery Method Nasal Cannula Oxygen Flow Rate 4 Sepsis New/Unexplained Change in Mental Status Sepsis Action Taken by Nursing 03/22/25 11:15 03/22/25 11:15 03/22/25 11:18 Temperature 36.5 C 36.5 C Temperature Source Axillary Axillary Pulse Rate 88 86 Pulse Rate [Apical] Pulse Rate from SpO2 Sensor Respiratory Rate 16 16 Respiratory Effort / Characteristics Respiratory Depth Blood Pressure 106/74 106/74 106/74 Blood Pressure [Right Arm] Blood Pressure Mean 84 84 88 Blood Pressure Mean [Right Arm] Blood Pressure Position [Right Arm] Pulse Oximetry 98 98 Oxygen Delivery Method Oxygen Flow Rate 6 6 Sepsis New/Unexplained Change in Mental Status Sepsis Action Taken by Nursing 03/22/25 11:18 03/22/25 11:18 03/22/25 11:24 Temperature Temperature Source Pulse Rate 75 Pulse Rate [Apical] Pulse Rate from SpO2 Sensor 75 Respiratory Rate 18 Respiratory Effort / Characteristics Respiratory Depth Blood Pressure 106/74 106/74 Blood Pressure [Right Arm] Blood Pressure Mean 88 88 Blood Pressure Mean [Right Arm] Blood Pressure Position [Right Arm] Pulse Oximetry 98 Oxygen Delivery Method Nasal Cannula Oxygen Flow Rate 4 Sepsis New/Unexplained Change in Mental Status Sepsis Action Taken by Nursing 03/22/25 11:27 03/22/25 11:31 03/22/25 11:31 Temperature Temperature Source Pulse Rate 81 Pulse Rate [Apical] Pulse Rate from SpO2 Sensor 81 Respiratory Rate 15 Respiratory Effort / Characteristics Respiratory Depth Blood Pressure 120/62 120/62 Blood Pressure [Right Arm] Blood Pressure Mean 78 78 Blood Pressure Mean [Right Arm] Blood Pressure Position [Right Arm] Pulse Oximetry 98 Oxygen Delivery Method Nasal Cannula Oxygen Flow Rate 4 Sepsis New/Unexplained Change in Mental Status Sepsis Action Taken by Nursing 03/22/25 11:33 03/22/25 11:45 03/22/25 11:51 Temperature Temperature Source Pulse Rate 79 79 81 Pulse Rate [Apical] Pulse Rate from SpO2 Sensor 80 80 81 Respiratory Rate 12 12 14 Respiratory Effort / Characteristics Respiratory Depth Blood Pressure Blood Pressure [Right Arm] Blood Pressure Mean Blood Pressure Mean [Right Arm] Blood Pressure Position [Right Arm] Pulse Oximetry 98 97 98 Oxygen Delivery Method Nasal Cannula Nasal Cannula Nasal Cannula Oxygen Flow Rate 4 4 4 Sepsis New/Unexplained Change in Mental Status Sepsis Action Taken by Nursing 03/22/25 12:00 03/22/25 12:06 03/22/25 12:15 Temperature 36.9 C Temperature Source Oral Pulse Rate 90 97 H Pulse Rate [Apical] Pulse Rate from SpO2 Sensor 91 H Respiratory Rate 14 16 Respiratory Effort / Characteristics Respiratory Depth Blood Pressure 96/74 L 96/74 L Blood Pressure [Right Arm] Blood Pressure Mean 78 81 Blood Pressure Mean [Right Arm] Blood Pressure Position [Right Arm] Pulse Oximetry 97 94 Oxygen Delivery Method Nasal Cannula Oxygen Flow Rate 4 4 Sepsis New/Unexplained Change in Mental Status Sepsis Action Taken by Nursing 03/22/25 12:18 Temperature Temperature Source Pulse Rate 84 Pulse Rate [Apical] Pulse Rate from SpO2 Sensor 84 Respiratory Rate 20 Respiratory Effort / Characteristics Respiratory Depth Blood Pressure Blood Pressure [Right Arm] Blood Pressure Mean Blood Pressure Mean [Right Arm] Blood Pressure Position [Right Arm] Pulse Oximetry 98 Oxygen Delivery Method Nasal Cannula Oxygen Flow Rate 4 Sepsis New/Unexplained Change in Mental Status Sepsis Action Taken by Nursing Laboratory Data 03/22/25 08:56 03/22/25 08:56 Lab Results 03/22/25 03/22/25 03/22/25 Range/Units 08:56 08:59 11:24 WBC 37.98 H* (4.8-10.8) K/ul RBC 2.29 L (4.20-5.40) M/uL Hgb 7.3 L (12.0-16.0) g/dl POC Hgb 7.5 L (12.0-16.0) g/dl Hct 22.3 L (37.0-47.0) % POC Hct 22 L (37-47) % MCV 97.4 (80.0-100.0) fL MCH 31.9 (25.0-34.0) pg MCHC 32.7 (32.0-36.0) g/dL RDW Std Deviation 68.8 H (36.4-46.3) fL RDW Coeff of Radha 19.4 H (11.5-14.5) % Plt Count 243 (130-400) K/uL MPV 11.5 (9.4-12.4) fL Immature Gran % (Auto) 4.7 % Neut % (Auto) 71.2 % Lymph % (Auto) 5.8 % [place] % (Auto) 14.8 % Eos % (Auto) 1.9 % Baso % (Auto) 1.6 % Neut # (Auto) 27.07 H (1.40-6.50) K/uL Lymph # (Auto) 2.21 (1.20-3.40) K/uL [place] # (Auto) 5.61 H (0.11-0.59) K/uL Eos # (Auto) 0.71 H (0.00-0.50) K/uL Baso # (Auto) 0.59 H (0.00-0.20) K/uL Immature Gran # (Auto) 1.79 H (0.01-0.20) K/uL Absolute Nucleated RBC 0.15 H (0.00-0.12) K/uL Nucleated RBC % (auto) 0.4 % Hypersegmented Neuts 1+ Polychromasia 1+ Basophilic Stippling 1+ PT 13.6 H (9.0-12.0) Seconds INR 1.3 H (0.9-1.1) APTT 26 (21-31) Seconds PTT Ratio 1.0 POC Sodium 136 (135-144) mmol/L Sodium 136 (136-145) mmol/L POC Potassium 3.3 (3.3-5.0) mmol/L Potassium 3.3 L (3.5-5.1) mmol/L POC Chloride 99 L (101-112) mmol/L Chloride 101 (98-107) mmol/L Carbon Dioxide 27 (21-32) mmol/L POC Total CO2 24 (24-31) mmol/L Anion Gap 8 (3-11) POC Anion Gap 18.0 (16-25) mmol/L POC BUN 31 H (7-18) mg/dl BUN 35 H (6-23) mg/dl Creatinine 0.69 (0.6-1.2) mg/dl POC Creatinine 0.7 (0.6-1.3) mg/dl Est Cr Clr Drug Dosing Not Reportable eGFR 99.29 BUN/Creatinine Ratio 50.7 H (10-20) Glucose 120 H (70-99(Fasting)) mg/dl POC Glucose (other) 117 H (70-99) mg/dl Lactate 2.1 H* (0.4-2.0) mmol/L Calcium 8.2 L (8.6-10.3) mg/dl POC Ioniz Calcium Simon 1.12 (1.12-1.32) mmol/l Magnesium 1.8 (1.7-2.4) mg/dl Total Bilirubin 1.7 H (0.2-1.0) mg/dl Direct Bilirubin 0.5 H (0-0.2) mg/dl AST 43 H (13-39) U/L ALT 17 (7-52) U/L Alkaline Phosphatase 81 (34-104) U/L Troponin I High Sens 7.4 (0-14) pg/ml Total Protein 5.9 L (6.0-8.3) gm/dl Albumin 2.9 L (3.4-5.0) gm/dl Lipase 72 (11-82) U/L Blood Type B Positive Antibody Screen NEGATIVE Crossmatch See Detail Administered Medications Octreotide Acetate 500 mcg/ (Sodium Chloride) 100.5 mls @ 10.05 mls/hr IV .Q10H STEPHAN Stop: 04/21/25 10:59 Last Admin: 03/22/25 11:38 Dose: 50 mcg/hr, 10.1 mls/hr Documented By: marilu Sodium Chloride (Nss) 250 mls @ 15 mls/hr IV .[id number] PRN PRN Reason: For Transfusion Duration Stop: 03/23/25 13:05 Last Infusion: 03/22/25 15:27 Dose: Infused Documented By: Infusion: 03/22/25 12:59 Dose: 0 mls/hr Documented By: Admin: 03/22/25 12:40 Dose: 175 mls/hr Documented By: HEENA Oxycodone HCl (Oxycodone Hcl Ir 5 Mg Tab (Immediate Release)) 5 mg PO Q6H PRN PRN Reason: Severe Pain (Scale 7, 8, 9,10) Stop: 04/05/25 14:57 Last Admin: 03/22/25 15:36 Dose: 5 mg Documented By: ACE Discontinued Medications Octreotide Acetate 50 mcg/ (Syringe) 10 mls @ 3 mls/min IV ONE STA Stop: 03/22/25 08:47 Last Admin: 03/22/25 09:20 Dose: 3 mls/min Documented By: marilu Ceftriaxone Sodium (Rocephin) 2,000 mg in 50 mls @ 100 mls/hr IV NOW STA Stop: 03/22/25 09:13 Last Infusion: 03/22/25 09:48 Dose: Infused Documented By: marilu Admin: 03/22/25 09:04 Dose: 100 mls/hr Documented By: marilu Pantoprazole Sodium 80 mg/ (Dextrose) 120 mls @ 480 mls/hr IV ONE STA Stop: 03/22/25 08:58 Last Infusion: 03/22/25 09:48 Dose: Infused Documented By: marilu Admin: 03/22/25 09:21 Dose: 480 mls/hr Documented By: marilu Sodium Chloride (Nss) 500 mls @ 999 mls/hr IV .Q31M ONE Stop: 03/22/25 09:14 Last Infusion: 03/22/25 09:30 Dose: Infused Documented By: marilu Admin: 03/22/25 09:00 Dose: 999 mls/hr Documented By: marilu Potassium Chloride (K Nitin / Wtr) 10 meq in 100 mls @ 100 mls/hr IV Q1H STEPHAN Stop: 03/22/25 12:14 Last Infusion: 03/22/25 12:35 Dose: Infused Documented By: Admin: 03/22/25 11:35 Dose: 100 mls/hr Documented By: marilu Infusion: 03/22/25 11:27 Dose: Infused Documented By: marilu Admin: 03/22/25 10:27 Dose: 100 mls/hr Documented By: marilu Metoclopramide HCl (Metoclopramide Hcl Inj 5 Mg/Ml 2 Ml Vial) 10 mg IV ONE ONE Stop: 03/22/25 12:01 Last Admin: 03/22/25 13:02 Dose: 10 mg Documented By: HEENA Miscellaneous (Stat Iv/Im) 1 each N/A NOW STA Stop: 03/22/25 08:45 Last Admin: 03/22/25 10:28 Dose: Not Given Documented By: marilu Morphine Sulfate (Morphine Sulfate 4 Mg/Ml 1 Ml Carp\Vial) 4 mg IV NOW STA Stop: 03/22/25 08:54 Last Admin: 03/22/25 09:03 Dose: 4 mg Documented By: marilu Morphine Sulfate (Morphine Sulfate 4 Mg/Ml 1 Ml Carp\Vial) 4 mg IV NOW STA Stop: 03/22/25 09:58 Last Admin: 03/22/25 10:28 Dose: 4 mg Documented By: marilu Ondansetron HCl (Ondansetron Inj 2 Mg/Ml 2 Ml Vial) 4 mg IV NOW STA Stop: 03/22/25 08:45 Last Admin: 03/22/25 09:01 Dose: 4 mg Documented By: amg Discharge Plan Visit Data Chief Complaint: GI Bleed Stated Complaint: VOMITING BLACK&RED ED Provider: Avtar Dickson Discharge Problem: Acute blood loss anemia, Bleeding esophageal varices, Hemorrhagic shock Patient Disposition: Admitted As Inpatient Condition: Critical Discharge Instructions Interventions: ED Discharge Assessment Last Done: 03/22/25 12:32 Discharge Problem: Bleeding esophageal varices Qualifiers: Esophageal varices type: secondary Qualified Code(s): I85.11 - Secondary esophageal varices with bleeding
[2025-03-22] MEDS: SODIUM CHLORIDE 0.9% 500 ML IV ONE (09:00)
[2025-03-22] MEDS: ONDANSETRON INJ 2 MG/ML 2 ML VIAL IV STA (09:01)
[2025-03-22] MEDS: MoRPHine SULFATE 4 MG/ML 1 ML CARP\\VIAL IV STA ×2 (09:03→10:28)
[2025-03-22] MEDS: cefTRIAXone SODIUM 2,000 MG/50 ML BAG IV STA (09:04)
[2025-03-22 09:12] LABS: Hematocrit (blood only) 22.3 % (37.0-47.0); Hemoglobin 7.3 g/dl (12.0-16.0); Mean Corpuscular Hemoglobin 31.9 pg (25.0-34.0); Mean Corpuscular Volume 97.4 fL (80.0-100.0); Platelet Count 243 K/uL (130-400); RDW Standard Deviation 68.8 fL (36.4-46.3); Red Blood Count 2.29 M/uL (4.20-5.40); White Blood Count 37.98 K/ul (4.8-10.8)
[2025-03-22] MEDS: OCTREOTIDE ACETATE 50 MCG in SYRINGE 9.5 ML IV STA (09:20)
[2025-03-22 09:26] LABS: Alanine Aminotransferase 17 U/L (7-52); Alkaline Phosphatase 81 U/L (34-104); Anion Gap 8 (3-11); Bilirubin,Total 1.7 mg/dl (0.2-1.0); Blood Urea Nitrogen 35 mg/dl (6-23); Calcium 8.2 mg/dl (8.6-10.3); Carbon Dioxide 27 mmol/L (21-32); Chloride 101 mmol/L (98-107); Glucose 120 mg/dl (70-99(Fasting)); Lipase 72 U/L (11-82); Magnesium 1.8 mg/dl (1.7-2.4); Potassium 3.3 mmol/L (3.5-5.1); Sodium 136 mmol/L (136-145); Total Protein 5.9 gm/dl (6.0-8.3)
[2025-03-22 09:41] LABS: INR 1.3 (0.9-1.1); Partial Thromboplastin Time 26 Seconds (21-31); Prothrombin Time 13.6 Seconds (9.0-12.0)
[2025-03-22 09:50] LABS: Basophilic Stippling 1+; Hypersegmented Neutrophils 1+; Immature Granulocytes # (auto) 1.79 K/uL (0.01-0.20); Immature Granulocytes % (auto) 4.7 %; Polychromasia 1+
--- NOTE | 2025-03-22 10:07 | History & Physical Report ---
Date of Service March 22, 2025 Assessment & Plan (1) Hematemesis: (2) Acute blood loss anemia: (3) Decompensated cirrhosis: Plan This is a 59 yr old F who has a significant PMH of Alcoholic Cirrhosis of liver, Portal hypertension, Esophageal varices, Hepatitis C antibody positive s/p treatment, Chronic hypoxic respiratory failure, Hepatopulmonary syndrome, Protein calorie malnutrition, COPD and Depression who presents to ED 2/2 hematemesis x 1 day. #Hematemesis #Acute UGIB suspected concern for variceal bleed vs known portal hypertensive gastropathy vs boorhaves lesion, PUD among others #Alcoholic cirrhosis decompensated #Acute/chronic blood loss anemia Admit to PCU IV PPI, IV octreotide, IV rocephin Keep NPO Consult gastroenterology plan for emergent EGD today Type/cross, transfuse 1 unit currently, will give additional unit to total 2 units of PRBC, place 2 more units on hold H/H trend Bedside paracentesis to be considered post endoscopy MELD 11, hold lasix /aldactone for now until more hemodynamically stable given bleeding #Leukocytosis Possible leukemoid reaction will obtain blood/urine cultures plan to obtain fluid for SBP later today will empirically cover for IV rocephin #Chronic hypoxic respiratory failure #COPD no acute exac #Hepatopulmonary syndrome Continue supplemental oxygen, trelegy #DVT PPX: SCDS in setting of GIB FULL CODE PCP: Sumi Dailey Dispo: admit to PCU Pt was seen and examined in collaboration with Dr. Rivera, please see addendum I spent a total of 50 minutes coordinating, documenting and providing care for this patient excluding time spent in the performance of separately billed services or time spent by another provider/QHP. History of Present Illness Chief Complaint: Hematemesis x 1 day. Primary Care Provider: Sumi Dailey, DO This is a 59 yr old F who has a significant PMH of Alcoholic Cirrhosis of liver, Portal hypertension, Esophageal varices, Hepatitis C antibody positive s/p treatment , Chronic hypoxic respiratory failure, Hepatopulmonary syndrome, Protein calorie malnutrition, COPD and Depression who presents to ED 2/2 hematemesis. She was scheduled to come in today for a routine paracentesis; however started vomiting blood last night. Today she has had multiple episodes of bloody emesis. Of significance pt was last admitted 02/05-6/18 2/2 decompensated cirrhosis and 30lb weight gain. She underwent paracentesis and was discharged. She states her sx started yesterday morning. It was black/red in color. It stopped last night. She didn't eat yesterday. She was up and down at night because of back pain. She got in the middle of the night with nausea, but she felt she had nothing else to throw up. She did throw up here in the ED as well and it was solid red. She is having a lot of pain in her abdomen and back. She is also having chest pain that started last night. She described it as a heart burn. She continues to have chronic SOB, but feels this is unchanged. Her last paracentesis was a few weeks ago. She denies fever, chills, sweats, hemoptysis, cough, diarrhea, melena or hematochezia. In ED pt was found to have significant leukocytosis at 34k, h/h at 7.3 and 22.3 which is down from her baseline of approximately 9.0 M/uL. Her total bili was 1.7, direct bili 0.5 and AST 43. She is a smoker and currently trying to quit. She has not had a cigarette in some time. She denies alcohol or elicit drug use. Allergies Allergy/AdvReac Type Severity Reaction Status Date / Time codeine AdvReac Severe upset Verified 02/05/25 12:24 stomach Home Medications Medication Instructions Recorded Confirmed Type albuterol sulfate 90 mcg/actuation 2 puff inhalation Q4 PRN Wheezing 01/08/19 03/22/25 History aerosol inhaler multivitamin 1 tab PO DAILY 12/29/21 03/22/25 History spironolactone 100 mg tablet 100 mg PO QAM #30 tabs 12/15/22 03/22/25 Rx fluticasone fur. 100 mcg-umeclid 100 inh inhalation QAM 11/07/24 03/22/25 History 62.5 mcg-vilant 25 mcg inhalat.powder (Trelegy Ellipta) furosemide 20 mg tablet 40 mg (2 x 20 mg) PO QAM #60 tabs 11/08/24 03/22/25 Rx docusate sodium 100 mg capsule 100 mg PO BID PRN Constipation 01/10/25 03/22/25 History lidocaine 5 % topical patch 1 patch transdermal HS #30 ea 01/25/25 03/22/25 Rx pantoprazole 40 mg tablet,delayed 40 mg PO DAILYBB #30 tabs 02/06/25 03/22/25 Rx release oxycodone 5 mg tablet 5 mg PO BID PRN Pain, Severe 03/22/25 03/22/25 History Past Med/Surg History Problem List (Updated 03/22/25 @ 17:38 by Avtar Dickson MD) Hemorrhagic shock (Acute) Bleeding esophageal varices (Acute) Hematemesis Acute on chronic back pain Hypomagnesemia (Acute) Fluid overload (Acute) Pedal edema (Acute) Ascites (Acute) SOB (shortness of breath) (Acute) Compression fx, thoracic spine Acute blood loss anemia (Acute) Hepatopulmonary syndrome Chronic bronchitis Acute respiratory failure with hypoxia Fall (Acute) Closed fracture of right hip (Acute) Cirrhosis (Acute) Chronic constipation Tobacco use disorder Decompensated cirrhosis Encounter for pre-operative examination Abdominal pain (Acute) Total bilirubin, elevated (Acute) Abdominal pain Injury of left leg (Acute) Encounter for pre-operative examination Ascites (Acute) Alcoholic cirrhosis (Acute) Melena DVT prophylaxis Portal hypertension COPD (chronic obstructive pulmonary disease) Transaminitis (Acute) Thrombocytopenia (Acute) Cirrhosis of liver (Chronic 11/21/12) Medical History COPD with emphysema Anemia Ascites Pancytopenia Hx of esophageal varices Acute upper gastrointestinal bleeding [facility] pt is now negative Alcohol abuse Per pt none in 2 years Alcoholic cirrhosis Surgical History Hx of pelvic surgery History of tubal ligation Family History Mother Cervical cancer Social History Smoking Status: Former smoker Tobacco Type: Cigarettes Cigarettes Per Day: recently quit; Second Hand Exposure: No; Do You Dip or Chew Tobacco: No; Tobacco Cessation Education Requested by Patient: No Hx Alcohol Use: No Hx Substance Use: No Preferred Language: Burmese Communication Ability: Effective 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 Rivera addendum for PE findings. Results & Data Results & Data Vital Signs (Past 12 Hours) Vital Signs Temp Pulse Pulse Resp BP BP Pulse Ox 03/22/25 09:21 84 03/22/25 09:15 81 20 107/61 98 03/22/25 08:31 36.7 C 91 H 20 92/69 L 96 O2 Del Method O2 Flow Rate 03/22/25 09:21 03/22/25 09:15 Nasal Cannula 4 03/22/25 08:31 Nasal Cannula 4 Laboratory Results I have independently reviewed and interpreted patient's admitting labs including CBC, CMP, PTT, PT/INR, mag and troponin. Medications Administered Medication List Discontinued Medications Octreotide Acetate 50 mcg/ (Syringe) 10 mls @ 3 mls/min IV ONE STA Stop: 03/22/25 08:47 Last Admin: 03/22/25 09:20 Dose: 3 mls/min Documented By: marilu Ceftriaxone Sodium (Rocephin) 2,000 mg in 50 mls @ 100 mls/hr IV NOW STA Stop: 03/22/25 09:13 Last Infusion: 03/22/25 09:48 Dose: Infused Documented By: marilu Admin: 03/22/25 09:04 Dose: 100 mls/hr Documented By: marilu Pantoprazole Sodium 80 mg/ (Dextrose) 120 mls @ 480 mls/hr IV ONE STA Stop: 03/22/25 08:58 Last Infusion: 03/22/25 09:48 Dose: Infused Documented By: marilu Admin: 03/22/25 09:21 Dose: 480 mls/hr Documented By: marilu Sodium Chloride (Nss) 500 mls @ 999 mls/hr IV .Q31M ONE Stop: 03/22/25 09:14 Last Infusion: 03/22/25 09:30 Dose: Infused Documented By: marilu Admin: 03/22/25 09:00 Dose: 999 mls/hr Documented By: marilu Morphine Sulfate (Morphine Sulfate 4 Mg/Ml 1 Ml Carp\Vial) 4 mg IV NOW STA Stop: 03/22/25 08:54 Last Admin: 03/22/25 09:03 Dose: 4 mg Documented By: marilu Ondansetron HCl (Ondansetron Inj 2 Mg/Ml 2 Ml Vial) 4 mg IV NOW STA Stop: 03/22/25 08:45 Last Admin: 03/22/25 09:01 Dose: 4 mg Documented By: marilu ECG Additional Comments: I have independently reviewed and interpreted patient's admitting EKG which revealed: NSR, 90 bpm, qtc 464ms, no st or t wave changes noted Code Status & VTE Plan Code Status FULL CODE - pt would not want prolonged intubation but okay for trial for resuscitation. VTE Prophylaxis Plan VTE Prophylaxis will be ordered: Yes Supervising Physician Co-Signing Physician Notes Patient seen and examined at bedside. Patient has had solid black/red hematemesis since yesterday morning. Started yesterday morning, stopped, and then returned. Some back pain as well. On exam, profound cachexia and sarcopenia noted, fluid wave with distended abdomen, mild diffuse tenderness to palpation of abdomen without peritoneal signs. Noted leukemoid reaction, Hgb drop 2 points below baseline, K of 3.3 (replenished). Presentation concerning for active variceal bleed/portal hypertensive gastropathy. Other considerations would be Boorhaves syndrome (given back pain), ruptured peptic ulceration, less likely Dieulafoys lesion, malginancy, erosive gastritis, vascular ectasia. -start IV octreotide drip and protonix IV bid, ordered -GI consulted, appreciate recs, urgent EGD today -Hgb transfusion goal>7, given 2 units of blood in ED due to rapid blood loss, 2 more units on hold -will need palliative care f/u outpatient given poor overall prognosis given repeat admissions, severe varices w/ complications, chronic hypoxia -ceftriaxone for empiric treatment for SBP, will do diagnostic paracentesis post EGD, discussed with GI -hold lasix, aldactone given hypotension. -update: bedside ultrasound did not reveal ascites ammenable to paracentesis, EGD revealed varices that were likely source of bleed and clipped I have seen and discussed the case with the collaborating advanced practitioner. I agree with the above H&P. I have reviewed and confirmed the patients medical history, the findings on physical examination, and the patients diagnosis and treatment plan with Catia Corona PA-C and agree with the information documemateo kinsey. I spent a total of 40 minutes coordinating, documenting, and providing care for this patient excluding time spent in the performance of separately billed services. All of the aforementioned completed outside of collaborating with the assigned advanced practitioner for a full treatment plan. I have reviewed the advanced practitioner's documentation, and I agree with, and take responsibility for the plan of care
--- NOTE | 2025-03-22 10:20 | Gastrointestinal Consultation ---
Date of Consultation March 22, 2025 Assessment & Plan (1) Ascites: (2) Cirrhosis: (3) Acute blood loss anemia: (4) Hematemesis: Plan Patient presented to the ED with reports of hematemesis with a history of esophageal varices. she has a history of cirrhosis/hep c (s/p treatment) and also presents with ascites. Case was discussed with Dr. Greene. - set the patient up for an EGD for further evaluation. - will give 10mg IV reglan prior to procedure. - make patient NPO. last oral intake was last evening per patient. - recommend starting protonix drip and octreotide drip. - follow hgb/hct and transfuse as needed. - would recommend paracentesis for after her EGD. -Further recommendations to come with Supervising GI provider/post procedure. Please see co-signature comments. Supervising Physician Co-Signing Physician Notes I saw and examined this patient with our nurse practitioner and agree with her assessment and plan. Patient presents with hematemesis. History of liver disease complicated by ascites past history of esophageal varices status post band ligation. Differential diagnosis includes recurrent variceal bleeding, portal gastropathy peptic ulcer disease Viola-Darby tear hemorrhagic gastritis. Will proceed with endoscopy today for further evaluation. Would start empiric PPI octreotide and antibiotics. History of Present Illness Reason for Consultation: acute GI bleeding, concern variceal Requesting Physician: Avtar Dickson MD History of Present Illness Patient is a 59 year old female with a past medical history of HCV (treated w Harvoni, SVR attained), ETOH cirrhosis, esophageal varices s/p banding, portal HTN, ascites, COPD, chronic hypoxic respiratory failure, anemia, anxiety/mood disorder, alcohol abuse, and tobacco abuse who presented to the ED overnight with complaints of sudden onset nausea/vomiting with dark coffee grounds and some bright red blood. she tells me that most of her emesis is dark, but there was a small amount of fresh blood after several episodes. her last episode of vomiting was around 8 am per patient. The remainder of the GI ROS were unremarkable. 03/22/25 wbc 37.98, hgb 7.3, hct 22.3, plts 243, INR 1.3. BUN 35. creatinine 0.69. T bili 1.7, d bili 0.5, AST 43, ALT 17, Alk 81. lipase 72. K 3.3. NA 136. EGD 01/10/2525 grade I esophageal varices, retained foods. Allergies Allergy/AdvReac Type Severity Reaction Status Date / Time codeine AdvReac Severe upset Verified 02/05/25 12:24 stomach Home Medications Medication Instructions Recorded Confirmed Type albuterol sulfate 90 mcg/actuation 2 puff inhalation Q4 PRN Wheezing 01/08/19 03/22/25 History aerosol inhaler multivitamin 1 tab PO DAILY 12/29/21 03/22/25 History spironolactone 100 mg tablet 100 mg PO QAM #30 tabs 12/15/22 03/22/25 Rx fluticasone fur. 100 mcg-umeclid 100 inh inhalation QAM 11/07/24 03/22/25 History 62.5 mcg-vilant 25 mcg inhalat.powder (Trelegy Ellipta) furosemide 20 mg tablet 40 mg (2 x 20 mg) PO QAM #60 tabs 11/08/24 03/22/25 Rx docusate sodium 100 mg capsule 100 mg PO BID PRN Constipation 01/10/25 03/22/25 History lidocaine 5 % topical patch 1 patch transdermal HS #30 ea 01/25/25 03/22/25 Rx pantoprazole 40 mg tablet,delayed 40 mg PO DAILYBB #30 tabs 02/06/25 03/22/25 Rx release oxycodone 5 mg tablet 5 mg PO BID PRN Pain, Severe 03/22/25 03/22/25 History Patient History Medical History COPD with emphysema Anemia Ascites Pancytopenia Hx of esophageal varices Acute upper gastrointestinal bleeding Hepatitis C treated with harvoni in [facility] pt is now negative Alcohol abuse Per pt none in 2 years Alcoholic cirrhosis Surgical History Hx of pelvic surgery History of tubal ligation Family History Mother Cervical cancer Social History Smoking Status: Former smoker Tobacco Type: Cigarettes Cigarettes Per Day: recently quit; Second Hand Exposure: No; Do You Dip or Chew Tobacco: No; Hx Alcohol Use: No Hx Substance Use: No Preferred Language: Luxembourgish Communication Ability: Effective 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 Psychiatric: Orientation: alert and oriented x 3 Results & Data Vital Signs (Past 12 Hours) Vital Signs Temp Pulse Pulse Resp BP BP Pulse Ox 03/22/25 10:15 97.9 F 90 18 90/68 L 96 03/22/25 09:21 84 03/22/25 09:15 81 20 107/61 98 03/22/25 08:31 98.1 F 91 H 20 92/69 L 96 O2 Del Method O2 Flow Rate 03/22/25 10:15 6 03/22/25 09:21 03/22/25 09:15 Nasal Cannula 4 03/22/25 08:31 Nasal Cannula 4 Laboratory Results Laboratory Results - last 48 hr 03/22/25 03/22/25 03/22/25 08:56 08:59 11:24 WBC 37.98 H* RBC 2.29 L Hgb 7.3 L POC Hgb 7.5 L Hct 22.3 L POC Hct 22 L MCV 97.4 MCH 31.9 MCHC 32.7 RDW Std Deviation 68.8 H RDW Coeff of Radha 19.4 H Plt Count 243 MPV 11.5 Immature Gran % (Auto) 4.7 Neut % (Auto) 71.2 Lymph % (Auto) 5.8 [place] % (Auto) 14.8 Eos % (Auto) 1.9 Baso % (Auto) 1.6 Neut # (Auto) 27.07 H Lymph # (Auto) 2.21 [place] # (Auto) 5.61 H Eos # (Auto) 0.71 H Baso # (Auto) 0.59 H Immature Gran # (Auto) 1.79 H Absolute Nucleated RBC 0.15 H Nucleated RBC % (auto) 0.4 Hypersegmented Neuts 1+ Polychromasia 1+ Basophilic Stippling 1+ PT 13.6 H INR 1.3 H APTT 26 PTT Ratio 1.0 POC Sodium 136 Sodium 136 POC Potassium 3.3 Potassium 3.3 L POC Chloride 99 L Chloride 101 Carbon Dioxide 27 POC Total CO2 24 Anion Gap 8 POC Anion Gap 18.0 POC BUN 31 H BUN 35 H Creatinine 0.69 POC Creatinine 0.7 Est Cr Clr Drug Dosing Not Reportable eGFR 99.29 BUN/Creatinine Ratio 50.7 H Glucose 120 H POC Glucose (other) 117 H Lactate 2.1 H* Calcium 8.2 L POC Ioniz Calcium Simon 1.12 Magnesium 1.8 Total Bilirubin 1.7 H Direct Bilirubin 0.5 H AST 43 H ALT 17 Alkaline Phosphatase 81 Troponin I High Sens 7.4 Total Protein 5.9 L Albumin 2.9 L Lipase 72 Blood Type B Positive Antibody Screen NEGATIVE Crossmatch See Detail Coding Level of Care Code 75841 IN/OBS CONSULT LVL 4,60M Diagnoses Ascites K70.31 Ascites type: due to alcoholic cirrhosis Cirrhosis K70.31 Ascites presence: with ascites Hepatic cirrhosis type: alcoholic cirrhosis Acute blood loss anemia D62 Hematemesis K92.0 (1) Ascites Ascites type: due to alcoholic cirrhosis Qualified Code(s): K70.31 - Alcoholic cirrhosis of liver with ascites (2) Cirrhosis Ascites presence: with ascites Hepatic cirrhosis type: alcoholic cirrhosis Qualified Code(s): K70.31 - Alcoholic cirrhosis of liver with ascites
[2025-03-22] MEDS: POTASSIUM CHLORIDE / WTR 10 MEQ/100 ML PLCT IV SCH (10:27)
[2025-03-22] MEDS: STAT IV/IM STA (10:28)
[2025-03-22] MEDS ORDERED: STAT IV/IM STA (10:49)
[2025-03-22] MEDS: OCTREOTIDE ACETATE 500 MCG in SODIUM CHLORIDE 0.9% 100 ML IV SCH (11:38)
[2025-03-22] MEDS: SODIUM CHLORIDE 0.9% 250 ML IV PRN (12:40)
[2025-03-22] MEDS ORDERED: Nursing to Pharmacy Communication SCH (13:00)
[2025-03-22] MEDS: METOCLOPRAMIDE HCL INJ 5 MG/ML 2 ML VIAL IV ONE (13:02)
[2025-03-22] MEDS ORDERED: DEXAMETHASONE SOD INJ 4 MG/ML VIAL ONE (13:14)
[2025-03-22] MEDS ORDERED: LIDOCAINE 2% 2 ML VIAL/AMP(20MG/ML) INFIL ONE (13:14)
[2025-03-22] MEDS ORDERED: PROPOFOL IV EMULSION 10 MG/ML 20 ML VIAL IV ONE (13:14)
[2025-03-22] MEDS ORDERED: MIDAZOLAM HCL 1 MG/ML 2ML VIAL ONE (13:14)
[2025-03-22] MEDS ORDERED: ONDANSETRON INJ 2 MG/ML 2 ML VIAL ONE (13:14)
--- NOTE | 2025-03-22 13:23 | Anesthesiology Consultation ---
Date of Service March 22, 2025 Assessment & Plan Chart Review Chart Review: Acceptable Risk for Surgery and Patient NOT seen in Pre Admission Testing Consults Requested none ASA [id number] Proposed Anesthesia Anesthesia Type: General Risk / Benefits Reviewed With: PT / POA / Parent / Guardian, Accepts Plan and Informed Consent Obtained Additional Comments: RSI with recent vomiting large amount coffee ground emesis History Surgery Operation Date: 03/22/25 15:45 Proposed Procedures p Esophagogastroduodenoscopy - Jose Carlos Greene MD Height/Weight Height: 5 ft 5 in Weight: 56.4 kg Allergies Allergy/AdvReac Type Severity Reaction Status Date / Time codeine AdvReac Severe upset Verified 02/05/25 12:24 stomach Medications Home Medications Medication Instructions Recorded Confirmed Last Taken albuterol sulfate 90 mcg/actuation 2 puff inhalation Q4 PRN Wheezing 01/08/19 03/22/25 12/08/22 aerosol inhaler multivitamin 1 tab PO DAILY 12/29/21 03/22/25 11/06/24 spironolactone 100 mg tablet 100 mg PO QAM #30 tabs 12/15/22 03/22/25 11/07/24 fluticasone fur. 100 mcg-umeclid 100 inh inhalation QAM 11/07/24 03/22/25 Unknown 62.5 mcg-vilant 25 mcg inhalat.powder (Trelegy Ellipta) furosemide 20 mg tablet 40 mg (2 x 20 mg) PO QAM #60 tabs 11/08/24 03/22/25 Unknown docusate sodium 100 mg capsule 100 mg PO BID PRN Constipation 01/10/25 03/22/25 Unknown lidocaine 5 % topical patch 1 patch transdermal HS #30 ea 01/25/25 03/22/25 Unknown pantoprazole 40 mg tablet,delayed 40 mg PO DAILYBB #30 tabs 02/06/25 03/22/25 Unknown release oxycodone 5 mg tablet 5 mg PO BID PRN Pain, Severe 03/22/25 03/22/25 Unknown Active Medications Generic Name Dose Route Start Last Admin Trade Name Freq PRN Reason Stop Dose Admin Octreotide Acetate 500 mcg/ 100.5 mls @ 10.05 mls/hr 03/22/25 11:00 03/22/25 11:38 Sodium Chloride IV 04/21/25 10:59 50 mcg/hr .Q10H STEPHAN 10.1 mls/hr Administration 50 MCG/HR Sodium Chloride 250 mls @ 15 mls/hr 03/22/25 13:06 03/22/25 12:59 Nss IV 03/23/25 13:05 0 mls/hr .[id number] PRN Infusion For Transfusion Duration NPO Date Last Intake of Fluids: 03/22/25 Time Last Intake of Fluids: 03:00 Date Last Intake of Solids: 03/20/25 Time Last Intake of Solids: 19:00 Past Medical History Medical History COPD with emphysema Anemia Ascites Pancytopenia Hx of esophageal varices Acute upper gastrointestinal bleeding Hepatitis C treated with harvayden in [facility] pt is now negative Alcohol abuse Per pt none in 2 years Alcoholic cirrhosis Exercise / Class Metabolic Activity III < 4 Walking/Shop/Light housework Past Family History Family History Mother Cervical cancer Past Surgical History Surgical History Hx of pelvic surgery History of tubal ligation Past Anesthesia History No Hx of Anesthesia Complications and No Family Hx of Anesthesia Complications History of PONV No Hx of PONV and No Hx of Motion Sickness Social History Smoking Status: Former smoker tobacco type: cigarettes Smoking cigarettes per day: recently quit Do You Dip or Chew Tobacco: No Hx Alcohol Use: No Alcohol type: beer and hard liquor alcohol intake frequency: 0-2 drinks per day Hx Substance Use: No substance use type: does not use Last Used Substance: Days (ago) Last Used Substance Other:: last month Review of Systems ROS Unobtainable: All systems reviewed & are unremarkable except as noted in HPI & below Physical Exam Vital Signs Last Vital Signs Temp 36.9 C 03/22/25 13:14 Pulse 86 03/22/25 13:14 Resp 20 03/22/25 13:14 BP 97/67 L 03/22/25 13:14 Pulse Ox 95 03/22/25 13:14 O2 Del Method Nasal Cannula 03/22/25 12:40 O2 Flow Rate 4 03/22/25 13:14 Constitutional WD/WN, vitals as above + cachectic; no acute distress c/o of back pain Eyes PERRL, conjunctivae normal, anicteric sclerae ENMT external ear and nose normal, oropharynx normal Mouth: no dentition abnormality Thyromental Distance: > or= 3.5 Finger Breadths Mallampati Class: III Neck trachea midline, no thyromegaly normal visual inspection Respiratory normal respiratory effort, lungs clear to auscultation normal respiratory effort Auscultation: + diminished lung sounds and + wheezes Cardiovascular RRR, no murmur, no edema Rate/Rhythm: regular rate and regular rhythm Musculoskeletal Head/Neck/Chest: normocephalic and head atraumatic Spine: normal cervical ROM and no pain with cervical ROM Extremities: extremities normal to inspection (bruising) and strength 5/5 throughout; full ROM of extremities Skin no rashes, warm and dry multiple bruises Neurologic moves all extremities Motor/Sensory: no sensory deficit Psychiatric A+Ox3, euthymic affect Orientation: alert and oriented x 3 Testing Laboratory Results 03/22/25 08:56 03/22/25 08:56 PT 13.6 Seconds (9.0-12.0) H 03/22/25 08:56 INR 1.3 (0.9-1.1) H 03/22/25 08:56 APTT 26 Seconds (21-31) 03/22/25 08:56 Blood Type B Positive 03/22/25 08:56 Antibody Screen NEGATIVE 03/22/25 08:56 03/22/25 08:59 POC Glucose (other) 117 H
[2025-03-22] MEDS ORDERED: PHENYLEPHRINE 100MCG/ML 5ML SYR ONE (13:44)
--- NOTE | 2025-03-22 14:02 | GI REPORT ---
[facility] Patient: SERGIO MCCRARY : 1965 Sex at : Female Age: 59 Years Procedure: Upper GI endoscopy Date: 03/22/2025 Attending Physician: Jose Carlos Greene MD Referring MD: RAZA CARLOS Indications: - Suspected upper gastrointestinal bleeding Medications: - Monitored Anesthesia Care Complications: - No immediate complications. Procedure: - Prior to the procedure, a History and Physical was performed, and patient medications and allergies were reviewed. The patient's tolerance of previous anesthesia was also reviewed. The risks and benefits of the procedure and the sedation options and risks were discussed with the patient. All questions were answered, and informed consent was obtained. [Anticoagulant Agents] [Days Prior to Procedure]. [ASA Grade]. After reviewing the risks and benefits, the patient was deemed in satisfactory condition to undergo the procedure. - The egd scope was introduced through the mouth and advanced to the second part of the duodenum. - The upper GI endoscopy was accomplished without difficulty. - The patient tolerated the procedure well. Findings: - A Grade II varice were found in the lower third of the esophagus. Medium in size. One band was successfully placed. Potential cause for bleeding - Moderate portal hypertensive gastropathy was found in the entire examined stomach. - Hematin (altered blood/tczqkb-wcrmic-zayx material) was found in the gastric fundus and in the gastric body. - The examined duodenum was normal. Impression: - Grade II esophageal varices. Banded. - Portal hypertensive gastropathy. - Hematin (altered blood/otltuq-qqdqkg-cckd material) in the gastric fundus and in the gastric body. - Normal examined duodenum. - No specimens collected. Recommendation: - Resume previous diet. - Patient has a contact number available for emergencies. The signs and symptoms of potential delayed complications were discussed with the patient. Return to normal activities tomorrow. Written discharge instructions were provided to the patient. Procedure Code(s): - 24312, Esophagogastroduodenoscopy, flexible, transoral; with band ligation of esophageal/gastric varices Diagnosis Code(s): - I85.00, Esophageal varices without bleeding - K76.6, Portal hypertension - K31.89, Other diseases of stomach and duodenum - K92.2, Gastrointestinal hemorrhage, unspecified CPT(R) - 202 copyright [employer]. All Rights Reserved. The CPT codes, CCI edits and ICD codes generated are intended as suggestions and were generated based on input data. These codes are preliminary and upon account analyst review may be revised to meet current compliance and payer requirements. The provider is responsible for the final determination of appropriate codes, and modifiers. Jose Carlos Greene MD This document has been electronically signed. Note Initiated:03/22/2025 Note Completed:03/22/2025 2:01 PM [id number]
--- NOTE | 2025-03-22 14:28 | Anesthesiology Progress Note ---
Date of Service March 22, 2025 Anesthesia Post Procedure Vital Signs Vital Signs: Temp Pulse Pulse Pulse Resp BP BP 03/22/25 14:15 85 25 H 105/61 03/22/25 14:06 36.5 C 87 24 102/57 L 03/22/25 13:29 36.9 C 85 20 94/67 L 03/22/25 13:14 36.9 C 86 20 97/67 L 03/22/25 12:59 36.9 C 90 24 97/63 L 03/22/25 12:40 36.9 C 90 24 97/63 L 03/22/25 12:40 36.9 C 90 97/63 L 03/22/25 12:32 90 16 96/74 L 03/22/25 12:18 84 20 03/22/25 12:15 36.9 C 97 H 16 96/74 L 03/22/25 12:06 90 14 03/22/25 12:00 96/74 L 03/22/25 11:51 81 14 03/22/25 11:45 79 12 03/22/25 11:33 79 12 03/22/25 11:31 120/62 03/22/25 11:31 120/62 03/22/25 11:27 81 15 03/22/25 11:24 75 18 03/22/25 11:18 106/74 03/22/25 11:18 106/74 03/22/25 11:18 106/74 03/22/25 11:15 36.5 C 86 16 106/74 03/22/25 11:15 36.5 C 88 16 106/74 03/22/25 11:01 117/66 03/22/25 11:01 117/66 03/22/25 10:57 80 12 03/22/25 10:45 79 12 03/22/25 10:45 107/82 03/22/25 10:45 36.7 C 83 18 107/82 03/22/25 10:30 98/67 L 03/22/25 10:30 36.6 C 85 18 98/67 L 03/22/25 10:27 85 15 03/22/25 10:18 82 15 03/22/25 10:15 90/68 L 03/22/25 10:15 90/68 L 03/22/25 10:15 87 18 96/68 L 03/22/25 10:15 36.6 C 90 18 90/68 L 03/22/25 10:06 90 21 03/22/25 10:03 93 H 19 03/22/25 10:00 100/62 03/22/25 10:00 100/62 03/22/25 10:00 84 18 110/62 03/22/25 09:45 96/75 L 03/22/25 09:45 89 18 96/75 L 03/22/25 09:42 81 17 03/22/25 09:36 85 17 03/22/25 09:31 110/40 L 03/22/25 09:30 83 16 110/40 L 03/22/25 09:24 83 17 03/22/25 09:21 84 03/22/25 09:15 84 17 107/61 03/22/25 09:15 81 20 107/61 03/22/25 08:31 36.7 C 91 H 20 92/69 L Pulse Ox O2 Del Method O2 Flow Rate 03/22/25 14:15 98 Oxymask 4 03/22/25 14:06 96 Oxymask 6 03/22/25 13:29 95 03/22/25 13:14 95 4 03/22/25 12:59 96 03/22/25 12:40 96 4 03/22/25 12:40 96 Nasal Cannula 4 03/22/25 12:32 96 Nasal Cannula 4 03/22/25 12:18 98 Nasal Cannula 4 03/22/25 12:15 94 4 03/22/25 12:06 97 Nasal Cannula 4 03/22/25 12:00 03/22/25 11:51 98 Nasal Cannula 4 03/22/25 11:45 97 Nasal Cannula 4 03/22/25 11:33 98 Nasal Cannula 4 03/22/25 11:31 03/22/25 11:31 03/22/25 11:27 98 Nasal Cannula 4 03/22/25 11:24 98 Nasal Cannula 4 03/22/25 11:18 03/22/25 11:18 03/22/25 11:18 03/22/25 11:15 98 6 03/22/25 11:15 98 6 03/22/25 11:01 03/22/25 11:01 03/22/25 10:57 99 Nasal Cannula 4 03/22/25 10:45 99 Nasal Cannula 4 03/22/25 10:45 03/22/25 10:45 99 6 03/22/25 10:30 03/22/25 10:30 98 6 03/22/25 10:27 97 Nasal Cannula 4 03/22/25 10:18 96 Nasal Cannula 4 03/22/25 10:15 03/22/25 10:15 03/22/25 10:15 95 Nasal Cannula 4 03/22/25 10:15 96 6 03/22/25 10:06 97 4 03/22/25 10:03 94 Room Air 4 03/22/25 10:00 03/22/25 10:00 03/22/25 10:00 96 Nasal Cannula 4 03/22/25 09:45 03/22/25 09:45 98 Nasal Cannula 4 03/22/25 09:42 98 Nasal Cannula 4 03/22/25 09:36 97 Nasal Cannula 4 03/22/25 09:31 03/22/25 09:30 98 Nasal Cannula 4 03/22/25 09:24 99 Nasal Cannula 4 03/22/25 09:21 03/22/25 09:15 97 Nasal Cannula 4 03/22/25 09:15 98 Nasal Cannula 4 03/22/25 08:31 96 Nasal Cannula 4 Pain Intensity Back: Pain Intensity: 8 Transfer of Care Handoff Completed per policy Notes Mental Status: alert / awake / arousable and participated in evaluation Patient Amnestic to Procedure: Yes Nausea / Vomiting: adequately controlled Pain: adequately controlled Airway Patency, RR, SpO2: stable & adequate BP & HR: stable & adequate Hydration State: stable & adequate Anesthetic Complications: no major complications apparent and Pt Satisfied with anesthetic care
[2025-03-22] MEDS ORDERED: ONDANSETRON INJ 2 MG/ML 2 ML VIAL IV PRN (14:58)
[2025-03-22 17:45] LABS: Hematocrit (blood only) 28.8 % (37.0-47.0); Hemoglobin 9.7 g/dl (12.0-16.0)
--- NOTE | 2025-03-22 20:18 | Electrocardiogram Report ---
Test Reason : Blood Pressure : */* mmHG Vent. Rate : 90 BPM Atrial Rate : 90 BPM P-R Int : 124 ms QRS Dur : 84 ms QT Int : 380 ms P-R-T Axes : 93 -1 51 degrees QTcB Int : 464 ms Poor data quality, interpretation may be adversely affected Normal sinus rhythm Nonspecific ST abnormality Abnormal ECG When compared with ECG of 05-Feb-2025 10:24, No significant change was found Confirmed by Chu Saldana ([id number]) on 03/22/2025 8:18:30 PM Referred By: RAZA CARLOS Confirmed By: Chu Saldana
[2025-03-22] MEDS: REMOVE LIDODERM PATCH SCH (20:54)
[2025-03-22] MEDS: LIDOCAINE 5% 1 PATCH TD SCH (20:54)
[2025-03-22 21:47] LABS: Hematocrit (blood only) 27.4 % (37.0-47.0); Hemoglobin 9.4 g/dl (12.0-16.0)
[2025-03-22] MEDS: PANTOprazole 40 MG/10 ML SYR IV SCH (21:49)
[2025-03-22 22:16] LABS: Appearance Urine Clear (Clear); Bacteria Urine Automated None Seen (None Seen); Cast Urine Automated 0-2 /lpf (0-2); Epithelial Cell Urine Auto 0-2 /hpf (0-2); Glucose Urine UA Negative (Negative); RBC Urine Automated >20 /hpf (0-2)
--- NOTE | 2025-03-23 00:07 | XRay Report ---
Exam(s): XR CXR 1 VIEW EXAM: XR Chest, 1 View CLINICAL HISTORY: Reason for exam: sepsis. TECHNIQUE: Frontal view of the chest. COMPARISON: 01/09/2025 FINDINGS: Lungs: Lower lung volumes than previous. This bronchovascular crowding without definite acute infiltrate. There is a 2.1 cm oval right infrahilar structure which was not present previously. Pleural space: Unremarkable. No pneumothorax. Heart: Unremarkable. No cardiomegaly. Mediastinum: Unremarkable. Normal mediastinal contour. Bones/joints: Unremarkable. No acute fracture. Upper abdomen: Unremarkable as visualized. No pneumoperitoneum under the diaphragm. IMPRESSION: Lower lung volumes than previous. This bronchovascular crowding without definite acute infiltrate. There is a 2.1 cm oval right infrahilar structure which was not present previously. Consider confluence of shadows . There was no mass in this area on 01/09/2025 CT chest. Electronically signed by: Tay Soliz MD 03/23/25 00:06 AM
[2025-03-23 03:22] LABS: Alanine Aminotransferase 18.0 U/L (7-52); Albumin Globulin Ratio 0.9 (0.9-2); Alkaline Phosphatase 76.0 U/L (34-104); Anion Gap 4.0 (3-11); Bilirubin,Total 2.6 mg/dl (0.2-1.0); Blood Urea Nitrogen 25.0 mg/dl (6-23); Calcium 8.0 mg/dl (8.6-10.3); Carbon Dioxide 25.0 mmol/L (21-32); Chloride 107.0 mmol/L (98-107); Creatinine Clr Calc Pharmacy 80.7 ml/min; Globulin 2.7 gm/dl (2.5-4.0); Glucose 139.0 mg/dl (70-99(Fasting)); Magnesium 1.9 mg/dl (1.7-2.4); Potassium 4.2 mmol/L (3.5-5.1); Sodium 136.0 mmol/L (136-145); Total Protein 5.2 gm/dl (6.0-8.3)
[2025-03-23 03:37] LABS: Hematocrit (blood only) 26.7 % (37.0-47.0); Hemoglobin 9.2 g/dl (12.0-16.0); Mean Corpuscular Hemoglobin 31.1 pg (25.0-34.0); Mean Corpuscular Volume 90.2 fL (80.0-100.0); Platelet Count 119 K/uL (130-400); RDW Standard Deviation 62.3 fL (36.4-46.3); Red Blood Count 2.96 M/uL (4.20-5.40); White Blood Count 24.84 K/ul (4.8-10.8)
--- NOTE | 2025-03-23 07:26 | Gastroenterology Progress Note ---
Date of Service March 23, 2025 Assessment & Plan (1) Hematemesis: Plan: Hematemesis resolved. Hemoglobin stable. Status post endoscopy with banding of a single medium size esophageal varix. Patient also has mild portal gastropathy. Suspect varix was bleeding. Will consider starting a beta-mark such as nadolol or carvedilol if not contraindicated for management of her portal hypertension and liver disease. Can advance diet as tolerated. She will need a repeat endoscopy in 6 to 8 weeks to reassess varices. Admission and Anticipated Discharge Date Admission Date: March 22, 2025 Subjective Resting comfortably denies any abdominal pain shortness of breath or chest pain. No further hematemesis or melena. Physical Exam Physical Exam: No acute distress Respiratory rate regular Cardiac rhythm regular Abdomen soft nontender Results & Data Results & Data Vital Signs (Past 12 Hours) Vital Signs Temp Pulse Pulse Resp BP Pulse Ox O2 Del Method 03/23/25 03:55 36.7 C 85 18 88/53 L 90 Nasal Cannula 03/22/25 23:13 Nasal Cannula 03/22/25 23:07 37.0 C 86 18 100/65 92 Nasal Cannula 03/22/25 21:44 79 03/22/25 19:39 37.1 C 87 18 89/61 L 92 Nasal Cannula O2 Flow Rate 03/23/25 03:55 3 03/22/25 23:13 3 03/22/25 23:07 3 03/22/25 21:44 03/22/25 19:39 3 Laboratory Results Laboratory Results - last 48 hr 03/22/25 03/22/25 03/22/25 08:56 08:59 11:24 WBC 37.98 H* RBC 2.29 L Hgb 7.3 L POC Hgb 7.5 L Hct 22.3 L POC Hct 22 L MCV 97.4 MCH 31.9 MCHC 32.7 RDW Std Deviation 68.8 H RDW Coeff of Radha 19.4 H Plt Count 243 MPV 11.5 Immature Gran % (Auto) 4.7 Neut % (Auto) 71.2 Lymph % (Auto) 5.8 [place] % (Auto) 14.8 Eos % (Auto) 1.9 Baso % (Auto) 1.6 Neut # (Auto) 27.07 H Lymph # (Auto) 2.21 [place] # (Auto) 5.61 H Eos # (Auto) 0.71 H Baso # (Auto) 0.59 H Immature Gran # (Auto) 1.79 H Absolute Nucleated RBC 0.15 H Nucleated RBC % (auto) 0.4 Hypersegmented Neuts 1+ Platelet Estimate Polychromasia 1+ Basophilic Stippling 1+ PT 13.6 H INR 1.3 H APTT 26 PTT Ratio 1.0 POC Sodium 136 Sodium 136 POC Potassium 3.3 Potassium 3.3 L POC Chloride 99 L Chloride 101 Carbon Dioxide 27 POC Total CO2 24 Anion Gap 8 POC Anion Gap 18.0 POC BUN 31 H BUN 35 H Creatinine 0.69 POC Creatinine 0.7 Est Cr Clr Drug Dosing Not Reportable eGFR 99.29 BUN/Creatinine Ratio 50.7 H Glucose 120 H POC Glucose (other) 117 H Lactate 2.1 H* Calcium 8.2 L POC Ioniz Calcium Simon 1.12 Phosphorus Magnesium 1.8 Total Bilirubin 1.7 H Direct Bilirubin 0.5 H AST 43 H ALT 17 Alkaline Phosphatase 81 Troponin I High Sens 7.4 Total Protein 5.9 L Albumin 2.9 L Globulin Albumin/Globulin Ratio Lipase 72 Urine Color Urine Appearance Urine pH Ur Specific [place] Urine Protein Urine Glucose (UA) Urine Ketones Urine Blood Urine Nitrite Urine Bilirubin Urine Urobilinogen Ur Leukocyte Esterase Urine WBC (Auto) Urine RBC (Auto) U Hyaline Cast (Auto) U Epithel Cells (Auto) Urine Bacteria (Auto) Urine Comment Nasal Screen MRSA (PCR) Blood Type B Positive Antibody Screen NEGATIVE Crossmatch See Detail 03/22/25 03/22/25 03/22/25 15:05 17:22 21:09 WBC RBC Hgb 9.7 L 9.4 L POC Hgb Hct 28.8 L 27.4 L POC Hct MCV MCH MCHC RDW Std Deviation RDW Coeff of Radha Plt Count MPV Immature Gran % (Auto) Neut % (Auto) Lymph % (Auto) [place] % (Auto) Eos % (Auto) Baso % (Auto) Neut # (Auto) Lymph # (Auto) [place] # (Auto) Eos # (Auto) Baso # (Auto) Immature Gran # (Auto) Absolute Nucleated RBC Nucleated RBC % (auto) Hypersegmented Neuts Platelet Estimate Polychromasia Basophilic Stippling PT INR APTT PTT Ratio POC Sodium Sodium POC Potassium Potassium POC Chloride Chloride Carbon Dioxide POC Total CO2 Anion Gap POC Anion Gap POC BUN BUN Creatinine POC Creatinine Est Cr Clr Drug Dosing eGFR BUN/Creatinine Ratio Glucose POC Glucose (other) Lactate 1.9 Calcium POC Ioniz Calcium Simon Phosphorus Magnesium Total Bilirubin Direct Bilirubin AST ALT Alkaline Phosphatase Troponin I High Sens Total Protein Albumin Globulin Albumin/Globulin Ratio Lipase Urine Color Urine Appearance Urine pH Ur Specific [place] Urine Protein Urine Glucose (UA) Urine Ketones Urine Blood Urine Nitrite Urine Bilirubin Urine Urobilinogen Ur Leukocyte Esterase Urine WBC (Auto) Urine RBC (Auto) U Hyaline Cast (Auto) U Epithel Cells (Auto) Urine Bacteria (Auto) Urine Comment Nasal Screen MRSA (PCR) Blood Type Antibody Screen Crossmatch 03/22/25 03/23/25 Unknown 02:46 WBC 24.84 H RBC 2.96 L Hgb 9.2 L POC Hgb Hct 26.7 L POC Hct MCV 90.2 D MCH 31.1 MCHC 34.5 RDW Std Deviation 62.3 H RDW Coeff of Radha 19.7 H Plt Count 119 L D MPV 11.3 Immature Gran % (Auto) Neut % (Auto) Lymph % (Auto) [place] % (Auto) Eos % (Auto) Baso % (Auto) Neut # (Auto) Lymph # (Auto) [place] # (Auto) Eos # (Auto) Baso # (Auto) Immature Gran # (Auto) Absolute Nucleated RBC 0.05 Nucleated RBC % (auto) 0.2 Hypersegmented Neuts Platelet Estimate Decreased L Polychromasia Basophilic Stippling PT INR APTT PTT Ratio POC Sodium Sodium 136 POC Potassium Potassium 4.2 D POC Chloride Chloride 107 Carbon Dioxide 25 POC Total CO2 Anion Gap 4 POC Anion Gap POC BUN BUN 25 H Creatinine 0.66 POC Creatinine Est Cr Clr Drug Dosing 80.7 eGFR 100.36 BUN/Creatinine Ratio 37.9 H Glucose 139 H POC Glucose (other) Lactate Calcium 8.0 L POC Ioniz Calcium Simon Phosphorus 3.2 Magnesium 1.9 Total Bilirubin 2.6 H D Direct Bilirubin AST 40 H ALT 18 Alkaline Phosphatase 76 Troponin I High Sens Total Protein 5.2 L Albumin 2.5 L Globulin 2.7 Albumin/Globulin Ratio 0.9 Lipase Urine Color [place] Urine Appearance Clear Urine pH 5.5 Ur Specific [place] 1.018 Urine Protein Negative Urine Glucose (UA) Negative Urine Ketones Negative Urine Blood 3+ H Urine Nitrite Negative Urine Bilirubin Negative Urine Urobilinogen Negative Ur Leukocyte Esterase Trace H Urine WBC (Auto) 6-10 H Urine RBC (Auto) >20 H U Hyaline Cast (Auto) 0-2 U Epithel Cells (Auto) 0-2 Urine Bacteria (Auto) None Seen Urine Comment Nasal Screen MRSA (PCR) Negative Blood Type Antibody Screen Crossmatch PG Care Time/CCT Total # of Minutes Spent Total Time Spent with Patient: Total time spent is greater than 50% in coordination of care (as documented) at patient's floor/unit and/or counseling patient: Coding Level of Care Code 73704 SUB INP/OBS CARE 2/35MIN Diagnoses Hematemesis K92.0
--- NOTE | 2025-03-23 07:46 | Hospitalist Progress Note ---
Date of Service March 23, 2025 Assessment & Plan (1) Hematemesis: (2) Acute blood loss anemia: (3) Decompensated cirrhosis: Plan This is a 59 yr old F who has a significant PMH of Alcoholic Cirrhosis of liver, Portal hypertension, Esophageal varices, Hepatitis C antibody positive s/p treatment, Chronic hypoxic respiratory failure, Hepatopulmonary syndrome, Protein calorie malnutrition, COPD and Depression who presents to ED 2/2 hematemesis x 1 day. #Hematemesis #Acute UGIB initially concern for variceal bleed vs known portal hypertensive gastropathy vs boorhaves lesion, PUD among others #Alcoholic cirrhosis decompensated #Acute/chronic blood loss anemia Admitted to PCU IV PPI, IV octreotide, IV rocephin Type/cross, transfuse 1 unit on admission, will give additional unit to total 2 units of PRBC, place 2 more units on hold H/H trend MELD 11, hold lasix /aldactone for now until more hemodynamically stable given bleeding Consulted gastroenterology - pt s/p EGD Findings: - A Grade II varice were found in the lower third of the esophagus. Medium in size. One band was successfully placed. Potential cause for bleeding - Moderate portal hypertensive gastropathy was found in the entire examined stomach. - Hematin (altered blood/qhyhly-aqyvgy-ottj material) was found in the gastric fundus and in the gastric body. - The examined duodenum was normal. Impression: - Grade II esophageal varices. Banded. - Portal hypertensive gastropathy. - Hematin (altered blood/qdbxek-mnpksm-mhde material) in the gastric fundus and in the gastric body. - Normal examined duodenum. - No specimens collected. Recommendation: - Resume previous diet. - Patient has a contact number available for emergencies. The signs and symptoms of potential delayed complications were discussed with the patient. Return to normal activities tomorrow. Written discharge instructions were provided to the patient. Bedside paracentesis considered post endoscopy- -update: bedside ultrasound did not reveal ascites amenable to paracentesis, EGD revealed varices that were likely source of bleed and clipped #Leukocytosis Possible leukemoid reaction - on admission WBC 37 K now down to 24 K - blood/urine cultures, UA, cxr - unable to obtain fluid for SBP, as above - will empirically cover for IV rocephin #Chronic hypoxic respiratory failure #COPD no acute exac #Hepatopulmonary syndrome Continue supplemental oxygen, trelegy #DVT PPX: SCDS in setting of GIB FULL CODE PCP: Dr.Laura Dailey Dispo: PCU Admission and Anticipated Discharge Date Admission Date: March 22, 2025 Subjective Pt seen in follow up of hematemesis, anemia Underwent EGD yesterday w/ GI, s/p of esoph. juan. Currently lying in bed in NAD, says she feels "much better but not great yet" Denies any abdominal pain, but feels abdomen is little distended. Denies any nausea/vomiting. Denies chest pain, shortness of breath. Currently on suppl. O2 Hgb stable, cont. to closely monitor Review of Systems Review of Systems: All systems reviewed & are unremarkable except as noted in Subjective Physical Exam Constitutional: WD/WN, vitals as above (thin female in NAD) Eyes: PERRL, conjunctivae normal, anicteric sclerae ENMT: external ear and nose normal, oropharynx normal Neck: normal visual inspection Respiratory: normal respiratory effort, lungs clear to auscultation Cardiovascular: RRR, no murmur, no edema Chest (Breasts): Chest: normal inspection of chest Gastrointestinal (Abdomen): nontender to palpation, + some distention Musculoskeletal: no cyanosis or clubbing, extremities motor strength 5/5 Skin: no rashes, warm and dry Neurologic: PERRL, EOMI, accommodation nl, no face palsy, no dysarthria Psychiatric: A+Ox3, euthymic affect Results & Data Results & Data Vital Signs (Past 12 Hours) Vital Signs Temp Pulse Pulse Resp BP Pulse Ox O2 Del Method 03/23/25 03:55 36.7 C 85 18 88/53 L 90 Nasal Cannula 03/22/25 23:13 Nasal Cannula 03/22/25 23:07 37.0 C 86 18 100/65 92 Nasal Cannula 03/22/25 21:44 79 O2 Flow Rate 03/23/25 03:55 3 03/22/25 23:13 3 03/22/25 23:07 3 03/22/25 21:44 Laboratory Results 03/23/25 03/22/25 03/22/25 Range/Units 02:46 Unknown 21:09 WBC 24.84 H (4.8-10.8) K/ul RBC 2.96 L (4.20-5.40) M/uL Hgb 9.2 L 9.4 L (12.0-16.0) g/dl POC Hgb (12.0-16.0) g/dl Hct 26.7 L 27.4 L (37.0-47.0) % POC Hct (37-47) % MCV 90.2 D (80.0-100.0) fL MCH 31.1 (25.0-34.0) pg MCHC 34.5 (32.0-36.0) g/dL RDW Std Deviation 62.3 H (36.4-46.3) fL RDW Coeff of Radha 19.7 H (11.5-14.5) % Plt Count 119 L D (130-400) K/uL MPV 11.3 (9.4-12.4) fL Immature Gran % (Auto) % Neut % (Auto) % Lymph % (Auto) % Alfalfa % (Auto) % Eos % (Auto) % Baso % (Auto) % Neut # (Auto) (1.40-6.50) K/uL Lymph # (Auto) (1.20-3.40) K/uL Alfalfa # (Auto) (0.11-0.59) K/uL Eos # (Auto) (0.00-0.50) K/uL Baso # (Auto) (0.00-0.20) K/uL Immature Gran # (Auto) (0.01-0.20) K/uL Absolute Nucleated RBC 0.05 (0.00-0.12) K/uL Nucleated RBC % (auto) 0.2 % Hypersegmented Neuts Platelet Estimate Decreased L (Normal) Polychromasia Basophilic Stippling PT (9.0-12.0) Seconds INR (0.9-1.1) APTT (21-31) Seconds PTT Ratio POC Sodium (135-144) mmol/L Sodium 136 (136-145) mmol/L POC Potassium (3.3-5.0) mmol/L Potassium 4.2 D (3.5-5.1) mmol/L POC Chloride (101-112) mmol/L Chloride 107 (98-107) mmol/L Carbon Dioxide 25 (21-32) mmol/L POC Total CO2 (24-31) mmol/L Anion Gap 4 (3-11) POC Anion Gap (16-25) mmol/L POC BUN (7-18) mg/dl BUN 25 H (6-23) mg/dl Creatinine 0.66 (0.6-1.2) mg/dl POC Creatinine (0.6-1.3) mg/dl Est Cr Clr Drug Dosing 80.7 eGFR 100.36 BUN/Creatinine Ratio 37.9 H (10-20) Glucose 139 H (70-99(Fasting)) mg/dl POC Glucose (other) (70-99) mg/dl Lactate (0.4-2.0) mmol/L Calcium 8.0 L (8.6-10.3) mg/dl POC Ioniz Calcium Simon (1.12-1.32) mmol/l Phosphorus 3.2 (2.5-4.9) mg/dl Magnesium 1.9 (1.7-2.4) mg/dl Total Bilirubin 2.6 H D (0.2-1.0) mg/dl Direct Bilirubin (0-0.2) mg/dl AST 40 H (13-39) U/L ALT 18 (7-52) U/L Alkaline Phosphatase 76 (34-104) U/L Troponin I High Sens (0-14) pg/ml Total Protein 5.2 L (6.0-8.3) gm/dl Albumin 2.5 L (3.4-5.0) gm/dl Globulin 2.7 (2.5-4.0) gm/dl Albumin/Globulin Ratio 0.9 (0.9-2) Lipase (11-82) U/L Urine Color [place] Urine Appearance Clear (Clear) Urine pH 5.5 (4.5-7.5) Ur Specific Riley 1.018 (1.000-1.030) Urine Protein Negative (Negative) Urine Glucose (UA) Negative (Negative) Urine Ketones Negative (Negative) Urine Blood 3+ H (Negative) Urine Nitrite Negative (Negative) Urine Bilirubin Negative (Negative) Urine Urobilinogen Negative (Negative) Ur Leukocyte Esterase Trace H (Negative) Urine WBC (Auto) 6-10 H (0-5) /hpf Urine RBC (Auto) >20 H (0-2) /hpf U Hyaline Cast (Auto) 0-2 (0-2) /lpf U Epithel Cells (Auto) 0-2 (0-2) /hpf Urine Bacteria (Auto) None Seen (None Seen) Urine Comment Nasal Screen MRSA (PCR) Negative (Negative) Blood Type Antibody Screen Crossmatch 03/22/25 03/22/25 03/22/25 Range/Units 17:22 15:05 11:24 WBC (4.8-10.8) K/ul RBC (4.20-5.40) M/uL Hgb 9.7 L (12.0-16.0) g/dl POC Hgb (12.0-16.0) g/dl Hct 28.8 L (37.0-47.0) % POC Hct (37-47) % MCV (80.0-100.0) fL MCH (25.0-34.0) pg MCHC (32.0-36.0) g/dL RDW Std Deviation (36.4-46.3) fL RDW Coeff of Radha (11.5-14.5) % Plt Count (130-400) K/uL MPV (9.4-12.4) fL Immature Gran % (Auto) % Neut % (Auto) % Lymph % (Auto) % Alfalfa % (Auto) % Eos % (Auto) % Baso % (Auto) % Neut # (Auto) (1.40-6.50) K/uL Lymph # (Auto) (1.20-3.40) K/uL Alfalfa # (Auto) (0.11-0.59) K/uL Eos # (Auto) (0.00-0.50) K/uL Baso # (Auto) (0.00-0.20) K/uL Immature Gran # (Auto) (0.01-0.20) K/uL Absolute Nucleated RBC (0.00-0.12) K/uL Nucleated RBC % (auto) % Hypersegmented Neuts Platelet Estimate (Normal) Polychromasia Basophilic Stippling PT (9.0-12.0) Seconds INR (0.9-1.1) APTT (21-31) Seconds PTT Ratio POC Sodium (135-144) mmol/L Sodium (136-145) mmol/L POC Potassium (3.3-5.0) mmol/L Potassium (3.5-5.1) mmol/L POC Chloride (101-112) mmol/L Chloride (98-107) mmol/L Carbon Dioxide (21-32) mmol/L POC Total CO2 (24-31) mmol/L Anion Gap (3-11) POC Anion Gap (16-25) mmol/L POC BUN (7-18) mg/dl BUN (6-23) mg/dl Creatinine (0.6-1.2) mg/dl POC Creatinine (0.6-1.3) mg/dl Est Cr Clr Drug Dosing eGFR BUN/Creatinine Ratio (10-20) Glucose (70-99(Fasting)) mg/dl POC Glucose (other) (70-99) mg/dl Lactate 1.9 2.1 H* (0.4-2.0) mmol/L Calcium (8.6-10.3) mg/dl POC Ioniz Calcium Simon (1.12-1.32) mmol/l Phosphorus (2.5-4.9) mg/dl Magnesium (1.7-2.4) mg/dl Total Bilirubin (0.2-1.0) mg/dl Direct Bilirubin (0-0.2) mg/dl AST (13-39) U/L ALT (7-52) U/L Alkaline Phosphatase (34-104) U/L Troponin I High Sens (0-14) pg/ml Total Protein (6.0-8.3) gm/dl Albumin (3.4-5.0) gm/dl Globulin (2.5-4.0) gm/dl Albumin/Globulin Ratio (0.9-2) Lipase (11-82) U/L Urine Color Urine Appearance (Clear) Urine pH (4.5-7.5) Ur Specific Riley (1.000-1.030) Urine Protein (Negative) Urine Glucose (UA) (Negative) Urine Ketones (Negative) Urine Blood (Negative) Urine Nitrite (Negative) Urine Bilirubin (Negative) Urine Urobilinogen (Negative) Ur Leukocyte Esterase (Negative) Urine WBC (Auto) (0-5) /hpf Urine RBC (Auto) (0-2) /hpf U Hyaline Cast (Auto) (0-2) /lpf U Epithel Cells (Auto) (0-2) /hpf Urine Bacteria (Auto) (None Seen) Urine Comment Nasal Screen MRSA (PCR) (Negative) Blood Type Antibody Screen Crossmatch 03/22/25 03/22/25 Range/Units 08:59 08:56 WBC 37.98 H* (4.8-10.8) K/ul RBC 2.29 L (4.20-5.40) M/uL Hgb 7.3 L (12.0-16.0) g/dl POC Hgb 7.5 L (12.0-16.0) g/dl Hct 22.3 L (37.0-47.0) % POC Hct 22 L (37-47) % MCV 97.4 (80.0-100.0) fL MCH 31.9 (25.0-34.0) pg MCHC 32.7 (32.0-36.0) g/dL RDW Std Deviation 68.8 H (36.4-46.3) fL RDW Coeff of Radha 19.4 H (11.5-14.5) % Plt Count 243 (130-400) K/uL MPV 11.5 (9.4-12.4) fL Immature Gran % (Auto) 4.7 % Neut % (Auto) 71.2 % Lymph % (Auto) 5.8 % Alfalfa % (Auto) 14.8 % Eos % (Auto) 1.9 % Baso % (Auto) 1.6 % Neut # (Auto) 27.07 H (1.40-6.50) K/uL Lymph # (Auto) 2.21 (1.20-3.40) K/uL Alfalfa # (Auto) 5.61 H (0.11-0.59) K/uL Eos # (Auto) 0.71 H (0.00-0.50) K/uL Baso # (Auto) 0.59 H (0.00-0.20) K/uL Immature Gran # (Auto) 1.79 H (0.01-0.20) K/uL Absolute Nucleated RBC 0.15 H (0.00-0.12) K/uL Nucleated RBC % (auto) 0.4 % Hypersegmented Neuts 1+ Platelet Estimate (Normal) Polychromasia 1+ Basophilic Stippling 1+ PT 13.6 H (9.0-12.0) Seconds INR 1.3 H (0.9-1.1) APTT 26 (21-31) Seconds PTT Ratio 1.0 POC Sodium 136 (135-144) mmol/L Sodium 136 (136-145) mmol/L POC Potassium 3.3 (3.3-5.0) mmol/L Potassium 3.3 L (3.5-5.1) mmol/L POC Chloride 99 L (101-112) mmol/L Chloride 101 (98-107) mmol/L Carbon Dioxide 27 (21-32) mmol/L POC Total CO2 24 (24-31) mmol/L Anion Gap 8 (3-11) POC Anion Gap 18.0 (16-25) mmol/L POC BUN 31 H (7-18) mg/dl BUN 35 H (6-23) mg/dl Creatinine 0.69 (0.6-1.2) mg/dl POC Creatinine 0.7 (0.6-1.3) mg/dl Est Cr Clr Drug Dosing Not Reportable eGFR 99.29 BUN/Creatinine Ratio 50.7 H (10-20) Glucose 120 H (70-99(Fasting)) mg/dl POC Glucose (other) 117 H (70-99) mg/dl Lactate (0.4-2.0) mmol/L Calcium 8.2 L (8.6-10.3) mg/dl POC Ioniz Calcium Simon 1.12 (1.12-1.32) mmol/l Phosphorus (2.5-4.9) mg/dl Magnesium 1.8 (1.7-2.4) mg/dl Total Bilirubin 1.7 H (0.2-1.0) mg/dl Direct Bilirubin 0.5 H (0-0.2) mg/dl AST 43 H (13-39) U/L ALT 17 (7-52) U/L Alkaline Phosphatase 81 (34-104) U/L Troponin I High Sens 7.4 (0-14) pg/ml Total Protein 5.9 L (6.0-8.3) gm/dl Albumin 2.9 L (3.4-5.0) gm/dl Globulin (2.5-4.0) gm/dl Albumin/Globulin Ratio (0.9-2) Lipase 72 (11-82) U/L Urine Color Urine Appearance (Clear) Urine pH (4.5-7.5) Ur Specific Riley (1.000-1.030) Urine Protein (Negative) Urine Glucose (UA) (Negative) Urine Ketones (Negative) Urine Blood (Negative) Urine Nitrite (Negative) Urine Bilirubin (Negative) Urine Urobilinogen (Negative) Ur Leukocyte Esterase (Negative) Urine WBC (Auto) (0-5) /hpf Urine RBC (Auto) (0-2) /hpf U Hyaline Cast (Auto) (0-2) /lpf U Epithel Cells (Auto) (0-2) /hpf Urine Bacteria (Auto) (None Seen) Urine Comment Nasal Screen MRSA (PCR) (Negative) Blood Type B Positive Antibody Screen NEGATIVE Crossmatch See Detail Medications Administered Current Inpatient Medications Fluticasone Furoate (Fluticasone Furoate 100mcg 14 Puffs/Inhaler) 1 puffs INH DAILY [facility] Stop: 04/22/25 08:59 Octreotide Acetate 500 mcg/ (Sodium Chloride) 100.5 mls @ 10.05 mls/hr IV .Q10H [facility] Stop: 04/21/25 10:59 Last Admin: 03/22/25 20:54 Dose: 50 mcg/hr, 10.1 mls/hr Pantoprazole Sodium (Protonix) 40 mg in 10 mls @ 5 mls/min IV BID [facility] Stop: 04/21/25 20:59 Last Admin: 03/22/25 21:49 Dose: 5 mls/min Sodium Chloride (Nss) 250 mls @ 15 mls/hr IV .[id number] PRN PRN Reason: For Transfusion Duration Stop: 03/23/25 13:05 Last Infusion: 03/22/25 15:27 Dose: Infused Ceftriaxone Sodium (Rocephin) 2,000 mg in 50 mls @ 100 mls/hr IV Q24H [facility] Stop: 04/02/25 07:59 Lidocaine (Lidocaine 5% 1 Patch) 1 patch TD HS [facility] Stop: 04/21/25 20:59 Last Admin: 03/22/25 20:54 Dose: Not Given Miscellaneous (Remove Lidoderm Patch) 1 each N/A DAILY@2100 [facility] Stop: 04/21/25 20:59 Last Admin: 03/22/25 20:54 Dose: Not Given Multivitamins (Multivitamin Tab) 1 tab PO QAM [facility] Stop: 04/22/25 08:59 Oxycodone HCl (Oxycodone Hcl Ir 5 Mg Tab (Immediate Release)) 5 mg PO Q4 PRN PRN Reason: Severe Pain (Scale 7, 8, 9,10) Stop: 04/05/25 14:57 Last Admin: 03/23/25 03:57 Dose: 5 mg Umeclidinium/Vilanterol (Umeclidinium/Vilanterol 62.5/25mcg 7 Puffs/Inhaler) 1 puffs INH DAILY [facility] Stop: 04/22/25 08:59
[2025-03-23] MEDS: UMECLIDINIUM/VILANTEROL 62.5/25MCG 7 PUFFS/INHALER INH SCH (08:34)
[2025-03-23] MEDS: FLUTICASONE FUROATE 100MCG 14 PUFFS/INHALER INH SCH (08:34)
[2025-03-23] MEDS: MULTIVITAMIN TAB PO SCH (08:34)
[2025-03-23 08:47] LABS: Hematocrit (blood only) 27.4 % (37.0-47.0); Hemoglobin 9.2 g/dl (12.0-16.0)
[2025-03-23] MEDS ORDERED: NON-FORMULARY MEDICATION (Fluticasone-Umeclidin-Vilanter [Trelegy Ellipta] 100-62.5-25 mcg INH SCH (09:00)
[2025-03-23 09:27] LABS: Magnesium 1.9 mg/dl (1.7-2.4)
[2025-03-23] MEDS: ALBUMIN 25% 25 GM/100 ML VIAL IV ONE (10:00)
[2025-03-23] MEDS: cefTRIAXone SODIUM 2,000 MG/50 ML BAG IV SCH (10:00)
[2025-03-24 06:58] LABS: Hematocrit (blood only) 26.0 % (37.0-47.0); Hemoglobin 8.5 g/dl (12.0-16.0); Mean Corpuscular Hemoglobin 30.9 pg (25.0-34.0); Mean Corpuscular Volume 94.5 fL (80.0-100.0); Platelet Count 113 K/uL (130-400); RDW Standard Deviation 66.4 fL (36.4-46.3); Red Blood Count 2.75 M/uL (4.20-5.40); White Blood Count 31.49 K/ul (4.8-10.8)
[2025-03-24 07:05] LABS: Alanine Aminotransferase 14.0 U/L (7-52); Albumin Globulin Ratio 1.2 (0.9-2); Alkaline Phosphatase 71.0 U/L (34-104); Anion Gap 5.0 (3-11); Bilirubin,Total 1.5 mg/dl (0.2-1.0); Blood Urea Nitrogen 19.0 mg/dl (6-23); Calcium 7.9 mg/dl (8.6-10.3); Carbon Dioxide 27.0 mmol/L (21-32); Chloride 106.0 mmol/L (98-107); Creatinine Clr Calc Pharmacy 96.8 ml/min; Globulin 2.4 gm/dl (2.5-4.0); Glucose 105.0 mg/dl (70-99(Fasting)); Magnesium 1.8 mg/dl (1.7-2.4); Potassium 3.7 mmol/L (3.5-5.1); Sodium 138.0 mmol/L (136-145); Total Protein 5.2 gm/dl (6.0-8.3)
--- NOTE | 2025-03-24 08:20 | Hospitalist Progress Note ---
Date of Service March 24, 2025 Assessment & Plan (1) Hematemesis: (2) Acute blood loss anemia: (3) Decompensated cirrhosis: Plan This is a 59 yr old F who has a significant PMH of Alcoholic Cirrhosis of liver, Portal hypertension, Esophageal varices, Hepatitis C antibody positive s/p treatment, Chronic hypoxic respiratory failure, Hepatopulmonary syndrome, Protein calorie malnutrition, COPD and Depression who presents to ED 2/2 hematemesis x 1 day. #Hematemesis #Acute UGIB initially concern for variceal bleed vs known portal hypertensive gastropathy vs boorhaves lesion, PUD among others #Alcoholic cirrhosis decompensated #Acute/chronic blood loss anemia Admitted to PCU IV PPI, IV octreotide, IV rocephin Type/cross, transfuse 1 unit on admission, will give additional unit to total 2 units of PRBC, place 2 more units on hold H/H trend MELD 11, hold lasix /aldactone for now until more hemodynamically stable given bleeding Consulted gastroenterology - pt s/p EGD Findings: - A Grade II varice were found in the lower third of the esophagus. Medium in size. One band was successfully placed. Potential cause for bleeding - Moderate portal hypertensive gastropathy was found in the entire examined stomach. - Hematin (altered blood/qjrrmc-toaprx-vuzp material) was found in the gastric fundus and in the gastric body. - The examined duodenum was normal. Impression: - Grade II esophageal varices. Banded. - Portal hypertensive gastropathy. - Hematin (altered blood/xmhulz-hipwpv-cdhl material) in the gastric fundus and in the gastric body. - Normal examined duodenum. - No specimens collected. Recommendation: - Resume previous diet. - Patient has a contact number available for emergencies. The signs and symptoms of potential delayed complications were discussed with the patient. Return to normal activities tomorrow. Written discharge instructions were provided to the patient. Bedside paracentesis considered post endoscopy- -update: bedside ultrasound did not reveal ascites amenable to paracentesis, EGD revealed varices that were likely source of bleed and clipped #Leukocytosis Possible leukemoid reaction - on admission WBC 37 K then down to 24 K yesterday, and up in 30s again today - blood/urine cultures, UA, cxr - repeat UA and CXR, paracentesis ordered (plan for tmrw) - unable to obtain fluid for SB on admission, as above - empirically covered with IV rocephin -> switched to zosyn #Chronic hypoxic respiratory failure #COPD no acute exac #Hepatopulmonary syndrome Continue supplemental oxygen, trelegy #DVT PPX: SCDS in setting of GIB FULL CODE PCP: Dr.Laura Dailey Dispo: PCU Admission and Anticipated Discharge Date Admission Date: March 22, 2025 Subjective Pt seen in follow up of hematemesis, anemia Underwent EGD w/ GI, s/p of esoph. radha. banding Currently sitting up in chair in NAD, reports back pain (has hx of [place] vert. fx), reports sitting up feels better than lying in bed Denies any abdominal pain, but feels abdomen is little distended. Denies any nausea/vomiting. Denies chest pain, shortness of breath. Currently on suppl. O2 Hgb stable, cont. to closely monitor WBC cont. to be quite elevated, will repeat UA, CXR, will obtain paracentesis. switched ceftriaxone to zosyn Review of Systems Review of Systems: All systems reviewed & are unremarkable except as noted in Subjective Physical Exam Physical Exam: Constitutional: thin, frail F in N AD Eyes: PERRL, conjunctiva e normal, anicteri c sclerae ENMT: external ear and n ose normal Neck: normal visual insp ection Respiratory: normal respiratory effort, lungs twin ar to auscultation Cardiovascular: RRR, no murmur, no edema Chest (Breasts): Chest: normal insp ection of chest Gastrointestinal ( Abdomen): nontender to palp ation, + some dist ention Musculoskeletal: no LE edema, moves extremities Skin: no rashes, warm an d dry Neurologic: PERRL, EOMI, no fa ce palsy, no dysar thria, moves extre mities Psychiatric: A+Ox3, euthymic af fect Results & Data Results & Data Vital Signs (Past 12 Hours) Vital Signs Temp Pulse Pulse Resp BP Pulse Ox O2 Del Method 03/24/25 03:22 36.9 C 83 20 112/69 97 Nasal Cannula 03/24/25 00:26 36.6 C 86 18 101/53 L 94 Oxymask 03/23/25 22:19 Oxymask 03/23/25 21:49 91 H O2 Flow Rate 03/24/25 03:22 3 03/24/25 00:26 3.5 03/23/25 22:19 3 03/23/25 21:49 Laboratory Results 03/24/25 03/23/25 Range/Units 05:51 08:35 WBC 31.49 H* (4.8-10.8) K/ul RBC 2.75 L (4.20-5.40) M/uL Hgb 8.5 L 9.2 L (12.0-16.0) g/dl Hct 26.0 L 27.4 L (37.0-47.0) % MCV 94.5 (80.0-100.0) fL MCH 30.9 (25.0-34.0) pg MCHC 32.7 (32.0-36.0) g/dL RDW Std Deviation 66.4 H (36.4-46.3) fL RDW Coeff of Radha 20.1 H (11.5-14.5) % Plt Count 113 L (130-400) K/uL MPV 11.0 (9.4-12.4) fL Absolute Nucleated RBC 0.15 H (0.00-0.12) K/uL Nucleated RBC % (auto) 0.5 % Sodium 138 (136-145) mmol/L Potassium 3.7 (3.5-5.1) mmol/L Chloride 106 (98-107) mmol/L Carbon Dioxide 27 (21-32) mmol/L Anion Gap 5 (3-11) BUN 19 (6-23) mg/dl Creatinine 0.55 L (0.6-1.2) mg/dl Est Cr Clr Drug Dosing 96.8 ml/min eGFR 104.87 BUN/Creatinine Ratio 34.5 H (10-20) Glucose 105 H (70-99(Fasting)) mg/dl Calcium 7.9 L (8.6-10.3) mg/dl Phosphorus 2.3 L 3.1 (2.5-4.9) mg/dl Magnesium 1.8 1.9 (1.7-2.4) mg/dl Total Bilirubin 1.5 H (0.2-1.0) mg/dl AST 36 (13-39) U/L ALT 14 (7-52) U/L Alkaline Phosphatase 71 (34-104) U/L Total Protein 5.2 L (6.0-8.3) gm/dl Albumin 2.8 L (3.4-5.0) gm/dl Globulin 2.4 L (2.5-4.0) gm/dl Albumin/Globulin Ratio 1.2 (0.9-2) Medications Administered Current Inpatient Medications Fluticasone Furoate (Fluticasone Furoate 100mcg 14 Puffs/Inhaler) 1 puffs INH DAILY [facility] Stop: 04/22/25 08:59 Last Admin: 03/23/25 08:34 Dose: 1 puffs Octreotide Acetate 500 mcg/ (Sodium Chloride) 100.5 mls @ 10.05 mls/hr IV .Q10H [facility] Stop: 04/21/25 10:59 Last Admin: 03/24/25 03:47 Dose: 50 mcg/hr, 10.1 mls/hr Pantoprazole Sodium (Protonix) 40 mg in 10 mls @ 5 mls/min IV BID [facility] Stop: 04/21/25 20:59 Last Admin: 03/23/25 20:37 Dose: 5 mls/min Ceftriaxone Sodium (Rocephin) 2,000 mg in 50 mls @ 100 mls/hr IV Q24H [facility] Stop: 04/02/25 07:59 Last Infusion: 03/23/25 10:42 Dose: Infused Piperacillin Sod/Tazobactam Sod (Zosyn) 4.5 gm in 100 mls @ 25 mls/hr IV Q8H [facility]; Protocol Stop: 03/26/25 08:29 Lidocaine (Lidocaine 5% 1 Patch) 1 patch TD HS [facility] Stop: 04/21/25 20:59 Last Admin: 03/23/25 20:35 Dose: Not Given Miscellaneous (Remove Lidoderm Patch) 1 each N/A DAILY@2100 [facility] Stop: 04/21/25 20:59 Last Admin: 03/23/25 20:35 Dose: Not Given Multivitamins (Multivitamin Tab) 1 tab PO QAM [facility] Stop: 04/22/25 08:59 Last Admin: 03/23/25 08:34 Dose: 1 tab Oxycodone HCl (Oxycodone Hcl Ir 5 Mg Tab (Immediate Release)) 5 mg PO Q4 PRN PRN Reason: Severe Pain (Scale 7, 8, 9,10) Stop: 04/05/25 14:57 Last Admin: 03/23/25 18:02 Dose: 5 mg Umeclidinium/Vilanterol (Umeclidinium/Vilanterol 62.5/25mcg 7 Puffs/Inhaler) 1 puffs INH DAILY [facility] Stop: 04/22/25 08:59 Last Admin: 03/23/25 08:34 Dose: 1 puffs
--- NOTE | 2025-03-24 09:06 | XRay Report ---
TWO VIEW CHEST CLINICAL HISTORY: Leukocytosis. FINDINGS: PA and lateral chest radiographs are compared to study dated 03/22/2025 and correlated with c hest CT dated 01/17/2025. The heart is enlarged noting atherosclerotic calcification of the thoracic a jan. The pulmonary vasculature is noncongested. Advanced emphysema and chronic interstitial thickeni ng is similar to previous. There is bibasilar scarring/atelectasis. No airspace consolidation or larg e pleural effusion is identified. There is no pneumothorax. The skeletal structures are osteopenic. I mpression deformities are noted in the midthoracic region. There are chronic/healed bilateral rib fra ctures. IMPRESSION: Cardiomegaly and emphysema with no acute cardiopulmonary abnormality identified. ACT 112: Negative or not required by law. Electronically signed by: Ismael Post M.D. 03/24/2025 9:04 AM
[2025-03-24] MEDS: 4.5GM X1 IV ONE (10:48)
[2025-03-24 11:50] LABS: Appearance Urine Clear (Clear); Bacteria Urine Automated None Seen (None Seen); Cast Urine Automated 0-2 /lpf (0-2); Epithelial Cell Urine Auto 0-2 /hpf (0-2); Glucose Urine UA Negative (Negative); RBC Urine Automated >20 /hpf (0-2)
[2025-03-24] MEDS: PIPERACILLIN/TAZOBACTAM 4.5 GM/100 ML BAG IV SCH (15:03)
[2025-03-25 06:10] LABS: Hematocrit (blood only) 24.6 % (37.0-47.0); Hemoglobin 8.0 g/dl (12.0-16.0); Mean Corpuscular Hemoglobin 30.9 pg (25.0-34.0); Mean Corpuscular Volume 95.0 fL (80.0-100.0); Platelet Count 94 K/uL (130-400); RDW Standard Deviation 64.5 fL (36.4-46.3); Red Blood Count 2.59 M/uL (4.20-5.40); White Blood Count 18.48 K/ul (4.8-10.8)
[2025-03-25 06:18] LABS: Alanine Aminotransferase 13.0 U/L (7-52); Albumin Globulin Ratio 1.1 (0.9-2); Alkaline Phosphatase 63.0 U/L (34-104); Anion Gap 4.0 (3-11); Bilirubin,Total 1.7 mg/dl (0.2-1.0); Blood Urea Nitrogen 14.0 mg/dl (6-23); Calcium 7.6 mg/dl (8.6-10.3); Carbon Dioxide 27.0 mmol/L (21-32); Chloride 105.0 mmol/L (98-107); Creatinine Clr Calc Pharmacy 81.9 ml/min; Globulin 2.2 gm/dl (2.5-4.0); Glucose 99.0 mg/dl (70-99(Fasting)); Magnesium 1.7 mg/dl (1.7-2.4); Potassium 3.6 mmol/L (3.5-5.1); Sodium 136.0 mmol/L (136-145); Total Protein 4.7 gm/dl (6.0-8.3)
--- NOTE | 2025-03-25 07:41 | Hospitalist Progress Note ---
Date of Service March 25, 2025 Assessment & Plan (1) Hematemesis: (2) Acute blood loss anemia: (3) Decompensated cirrhosis: Plan This is a 59 yr old F who has a significant PMH of Alcoholic Cirrhosis of liver, Portal hypertension, Esophageal varices, Hepatitis C antibody positive s/p treatment, Chronic hypoxic respiratory failure, Hepatopulmonary syndrome, Protein calorie malnutrition, COPD and Depression who presents to ED 2/2 hematemesis x 1 day. #Hematemesis #Acute UGIB initially concern for variceal bleed vs known portal hypertensive gastropathy vs boorhaves lesion, PUD among others #Alcoholic cirrhosis decompensated #Acute/chronic blood loss anemia Admitted to PCU IV PPI, IV octreotide, IV rocephin Type/cross, transfuse 1 unit on admission, will give additional unit to total 2 units of PRBC, place 2 more units on hold H/H trend MELD 11, hold lasix /aldactone for now until more hemodynamically stable given bleeding Consulted gastroenterology - pt s/p EGD Findings: - A Grade II varice were found in the lower third of the esophagus. Medium in size. One band was successfully placed. Potential cause for bleeding - Moderate portal hypertensive gastropathy was found in the entire examined stomach. - Hematin (altered blood/bqzofv-sxmkua-yqec material) was found in the gastric fundus and in the gastric body. - The examined duodenum was normal. Impression: - Grade II esophageal varices. Banded. - Portal hypertensive gastropathy. - Hematin (altered blood/mqelps-fvdevo-ognh material) in the gastric fundus and in the gastric body. - Normal examined duodenum. - No specimens collected. Recommendation: - Resume previous diet. - Patient has a contact number available for emergencies. The signs and symptoms of potential delayed complications were discussed with the patient. Return to normal activities tomorrow. Written discharge instructions were provided to the patient. Bedside paracentesis considered post endoscopy- -update: bedside ultrasound did not reveal ascites amenable to paracentesis, EGD revealed varices that were likely source of bleed and clipped Pt will have paracentesis today (03/25/2025). #Leukocytosis, UTI Possible leukemoid reaction - on admission WBC 37 K then down to 24 K yesterday, and up in 30s again today - blood/urine cultures, UA, cxr - repeat UA and CXR, paracentesis ordered (plan for tmrw) - unable to obtain fluid for SB on admission, as above - empirically covered with IV rocephin -> switched to zosyn - plan for paracentesis today (03/25/2025) - WBC down to 18K today - Ucultx also posit. for Enterococcus faecium #Chronic hypoxic respiratory failure #COPD no acute exac #Hepatopulmonary syndrome Continue supplemental oxygen, trelegy #DVT PPX: SCDS in setting of GIB FULL CODE PCP: Dr.Laura Dailey Dispo: PCU Admission and Anticipated Discharge Date Admission Date: March 22, 2025 Subjective Pt seen in follow up of hematemesis, anemia Underwent EGD w/ GI, s/p of esoph. radha. banding Currently sitting up in chair in NAD, reports back pain (has hx of thorcic vert. fx), reports sitting up feels better than lying in bed Denies any abdominal pain, but feels abdomen is distended. Pt will have paracentesis today. Denies any nausea/vomiting. Denies chest pain, shortness of breath. Currently on suppl. O2 Hgb stable, cont. to closely monitor WBC cont. to be quite elevated, but improved from yesterday. Yesterday switched ceftriaxone to zosyn. Ucultx posit. for Enterococcus faececium - will start dapto for now. Review of Systems Review of Systems: All systems reviewed & are unremarkable except as noted in Subjective Physical Exam Physical Exam: Constitutional: thin, frail F in N AD Eyes: PERRL, conjunctiva e normal, anicteri c sclerae ENMT: external ear and n ose normal Neck: normal visual insp ection Respiratory: normal respiratory effort, lungs twin ar to auscultation Cardiovascular: RRR, no murmur, no edema Chest (Breasts): Chest: normal insp ection of chest Gastrointestinal ( Abdomen): nontender to palp ation, + some dist ention Musculoskeletal: no LE edema, moves extremities Skin: no rashes, warm an d dry Neurologic: PERRL, EOMI, no fa ce palsy, no dysar thria, moves extre mities Psychiatric: A+Ox3, euthymic af fect Results & Data Results & Data Vital Signs (Past 12 Hours) Vital Signs Temp Pulse Pulse Resp BP Pulse Ox O2 Del Method 03/25/25 03:58 37 C 75 14 91/52 L 96 Nasal Cannula 03/24/25 22:55 36.9 C 89 18 90/55 L 92 Nasal Cannula 03/24/25 22:41 83 O2 Flow Rate 03/25/25 03:58 3 03/24/25 22:55 3 03/24/25 22:41 Laboratory Results 03/25/25 03/24/25 03/22/25 Range/Units 05:27 Unknown 08:56 WBC 18.48 H D (4.8-10.8) K/ul RBC 2.59 L (4.20-5.40) M/uL Hgb 8.0 L (12.0-16.0) g/dl Hct 24.6 L (37.0-47.0) % MCV 95.0 (80.0-100.0) fL MCH 30.9 (25.0-34.0) pg MCHC 32.5 (32.0-36.0) g/dL RDW Std Deviation 64.5 H (36.4-46.3) fL RDW Coeff of Radha 19.6 H (11.5-14.5) % Plt Count 94 L (130-400) K/uL MPV 11.7 (9.4-12.4) fL Absolute Nucleated RBC 0.05 (0.00-0.12) K/uL Nucleated RBC % (auto) 0.3 % Sodium 136 (136-145) mmol/L Potassium 3.6 (3.5-5.1) mmol/L Chloride 105 (98-107) mmol/L Carbon Dioxide 27 (21-32) mmol/L Anion Gap 4 (3-11) BUN 14 (6-23) mg/dl Creatinine 0.65 (0.6-1.2) mg/dl Est Cr Clr Drug Dosing 81.9 ml/min eGFR 100.73 BUN/Creatinine Ratio 21.5 H (10-20) Glucose 99 (70-99(Fasting)) mg/dl Calcium 7.6 L (8.6-10.3) mg/dl Phosphorus 3.0 (2.5-4.9) mg/dl Magnesium 1.7 (1.7-2.4) mg/dl Total Bilirubin 1.7 H (0.2-1.0) mg/dl AST 32 (13-39) U/L ALT 13 (7-52) U/L Alkaline Phosphatase 63 (34-104) U/L Total Protein 4.7 L (6.0-8.3) gm/dl Albumin 2.5 L (3.4-5.0) gm/dl Globulin 2.2 L (2.5-4.0) gm/dl Albumin/Globulin Ratio 1.1 (0.9-2) Urine Color Dark Yellow Urine Appearance Clear (Clear) Urine pH 6.0 (4.5-7.5) Ur Specific [place] 1.018 (1.000-1.030) Urine Protein Negative (Negative) Urine Glucose (UA) Negative (Negative) Urine Ketones Negative (Negative) Urine Blood 2+ H (Negative) Urine Nitrite Negative (Negative) Urine Bilirubin Negative (Negative) Urine Urobilinogen Negative (Negative) Ur Leukocyte Esterase 2+ H (Negative) Urine WBC (Auto) 11-20 H (0-5) /hpf Urine RBC (Auto) >20 H (0-2) /hpf U Hyaline Cast (Auto) 0-2 (0-2) /lpf U Epithel Cells (Auto) 0-2 (0-2) /hpf Urine Bacteria (Auto) None Seen (None Seen) Urine Comment Crossmatch See Detail Medications Administered Current Inpatient Medications Fluticasone Furoate (Fluticasone Furoate 100mcg 14 Puffs/Inhaler) 1 puffs INH DAILY [facility] Stop: 04/22/25 08:59 Last Admin: 03/24/25 09:17 Dose: 1 puffs Octreotide Acetate 500 mcg/ (Sodium Chloride) 100.5 mls @ 10.05 mls/hr IV .Q10H [facility] Stop: 04/21/25 10:59 Last Admin: 03/24/25 22:20 Dose: 50 mcg/hr, 10.1 mls/hr Pantoprazole Sodium (Protonix) 40 mg in 10 mls @ 5 mls/min IV BID [facility] Stop: 04/21/25 20:59 Last Admin: 03/24/25 20:24 Dose: 5 mls/min Piperacillin Sod/Tazobactam Sod (Zosyn) 4.5 gm in 100 mls @ 25 mls/hr IV Q8H [facility]; Protocol Stop: 03/26/25 15:59 Last Infusion: 03/25/25 03:10 Dose: Infused Lidocaine (Lidocaine 5% 1 Patch) 1 patch TD HS [facility] Stop: 04/21/25 20:59 Last Admin: 03/24/25 20:23 Dose: Not Given Miscellaneous (Remove Lidoderm Patch) 1 each N/A DAILY@2100 [facility] Stop: 04/21/25 20:59 Last Admin: 03/24/25 20:24 Dose: Not Given Multivitamins (Multivitamin Tab) 1 tab PO QAM [facility] Stop: 04/22/25 08:59 Last Admin: 03/24/25 09:18 Dose: 1 tab Oxycodone HCl (Oxycodone Hcl Ir 5 Mg Tab (Immediate Release)) 5 mg PO Q4 PRN PRN Reason: Severe Pain (Scale 7, 8, 9,10) Stop: 04/05/25 14:57 Last Admin: 03/25/25 05:47 Dose: 5 mg Umeclidinium/Vilanterol (Umeclidinium/Vilanterol 62.5/25mcg 7 Puffs/Inhaler) 1 puffs INH DAILY [facility] Stop: 04/22/25 08:59 Last Admin: 03/24/25 09:17 Dose: 1 puffs
[2025-03-25] MEDS: ALBUMIN 25% 25 GM/100 ML VIAL IV ONE ×2 (12:52→15:57)
[2025-03-25] MEDS: DAPTOmycin 600 MG in SYRINGE 0 ML IV SCH (12:53)
[2025-03-25 13:29] LABS: Appearance Peritoneal Fluid Clear; Color Peritoneal Fluid Yellow; RBC Peritoneal Fluid Auto < 2000 /uL; WBC Peritoneal Fluid Auto 371 /ul (0-300)
--- NOTE | 2025-03-25 13:36 | Ultrasound Report ---
ULTRASOUND-GUIDED PARACENTESIS CLINICAL HISTORY: Ascites PROCEDURE: Procedure and risks were explained. Informed consent was obtained. A final timeout was com pleted. The abdomen was prepped and draped in sterile fashion. 1% lidocaine was utilized for skin ane sthesia. Utilizing ultrasound guidance, a 5 Wolof safety centesis catheter was advanced into the left lower q uadrant pocket of ascites. Ultrasound images were obtained. 1 L of ascites fluid was removed and sent to the lab for analysis. The catheter was removed and Band-Aid applied. The patient tolerated the pr ocedure well. Vital signs will be monitored postprocedure. IMPRESSION: Ultrasound-guided paracentesis as above. Performed, dictated, and signed by Berny Bales PA-C; to be co-signed by Dr. Ash Sage. Electronically signed by: Ash Sage M.D. 03/25/2025 4:51 PM
[2025-03-25 13:49] LABS: Lymphocytes, Fluid 9 %; Mono,Macrophage,Mesothelial 51 %; Neutrophils, Fluid 40 %
[2025-03-26 06:25] LABS: Hematocrit (blood only) 23.5 % (37.0-47.0); Hemoglobin 7.7 g/dl (12.0-16.0); Mean Corpuscular Hemoglobin 31.0 pg (25.0-34.0); Mean Corpuscular Volume 94.8 fL (80.0-100.0); Platelet Count 74 K/uL (130-400); RDW Standard Deviation 63.7 fL (36.4-46.3); Red Blood Count 2.48 M/uL (4.20-5.40); White Blood Count 12.29 K/ul (4.8-10.8)
[2025-03-26 06:58] LABS: Anion Gap 5.0 (3-11); Calcium 7.7 mg/dl (8.6-10.3); Carbon Dioxide 26.0 mmol/L (21-32); Chloride 106.0 mmol/L (98-107); Magnesium 1.8 mg/dl (1.7-2.4); Potassium 3.2 mmol/L (3.5-5.1); Sodium 137.0 mmol/L (136-145)
[2025-03-26 07:04] LABS: Blood Urea Nitrogen 10.0 mg/dl (6-23); Creatinine Clr Calc Pharmacy 96.8 ml/min; Glucose 109.0 mg/dl (70-99(Fasting))
[2025-03-26] MEDS ORDERED: VANCOMYCIN CONSULT ACTIVE PRN (08:51)
[2025-03-26] MEDS: POTASSIUM CHLORIDE CRTAB 20 MEQ TABCR PO STA (09:33)
[2025-03-26] MEDS: ALBUMIN 25% 25 GM/100 ML VIAL IV ONE ×2 (09:33→17:17)
[2025-03-26] MEDS: VANCOMYCIN HCL 1,250 MG in SODIUM CHLORIDE 0.9% 250 ML IV ONE (11:26)
--- NOTE | 2025-03-26 14:35 | Pharmacy Report ---
Pharmacy PK ABX Note - Date of Service March 26, 2025 - Assessment and Plan Assessment 59 year old F receiving vancomycin for treatment of E. faecium in urine. Completing course of zosyn today. WBC has been downtrending. Discussed deferring treatment d/t improvement off of therapeutic antimicrobial for E. faecium/? uti symptoms. Ultimately desiring treatment per hospitalist. Plan Vancomycin * Loading dose: 1250 mg IV x 1 * Maintenance dose: 1000 mg IV every 12 hours * Regimen is predicted to achieve target AUC/MONTRELL of 400-600 mg/L.hr * Random level will be obtained if continued > 48 hours. Pharmacy will continue to follow and will adjust dose/frequency as necessary. Thank you. Pharmacy has transitioned to AUC monitoring for vancomycin. AUC/MONTRELL is the preferred PK/PD target and is associated with decreased risk of nephrotoxicity compared to traditional trough targets.
--- NOTE | 2025-03-26 17:03 | Hospitalist Progress Note ---
Date of Service March 26, 2025 Assessment & Plan (1) Hematemesis: (2) Acute blood loss anemia: (3) Decompensated cirrhosis: Plan This is a 59 yr old F who has a significant PMH of Alcoholic Cirrhosis of liver, Portal hypertension, Esophageal varices, Hepatitis C antibody positive s/p treatment, Chronic hypoxic respiratory failure, Hepatopulmonary syndrome, Protein calorie malnutrition, COPD and Depression who presents to ED 2/2 hematemesis x 1 day. #Hematemesis #Acute UGIB initially concern for variceal bleed vs known portal hypertensive gastropathy vs boorhaves lesion, PUD among others #Alcoholic cirrhosis decompensated #Acute/chronic blood loss anemia Admitted to PCU IV PPI, IV octreotide, IV rocephin Type/cross, transfuse 1 unit on admission, will give additional unit to total 2 units of PRBC, place 2 more units on hold H/H trend MELD 11, hold lasix /aldactone for now until more hemodynamically stable given bleeding Consulted gastroenterology - pt s/p EGD Findings: - A Grade II varice were found in the lower third of the esophagus. Medium in size. One band was successfully placed. Potential cause for bleeding - Moderate portal hypertensive gastropathy was found in the entire examined stomach. - Hematin (altered blood/qvrfqj-dhlrvk-qgko material) was found in the gastric fundus and in the gastric body. - The examined duodenum was normal. Impression: - Grade II esophageal varices. Banded. - Portal hypertensive gastropathy. - Hematin (altered blood/yockku-naotkm-hetw material) in the gastric fundus and in the gastric body. - Normal examined duodenum. - No specimens collected. Recommendation: - Resume previous diet. - Patient has a contact number available for emergencies. The signs and symptoms of potential delayed complications were discussed with the patient. Return to normal activities tomorrow. Written discharge instructions were provided to the patient. Bedside paracentesis considered post endoscopy- -update: bedside ultrasound did not reveal ascites amenable to paracentesis, EGD revealed varices that were likely source of bleed and clipped Pt had paracentesis yesterday (03/25/2025). fluid studies not c/w SBP. however pt had several days of abx prior to procedure. Cultx - pending #Leukocytosis, UTI Possible leukemoid reaction - on admission WBC 37 K then down to 24 Kand up in 30s again next day - blood/urine cultures, UA, cxr - repeat UA and CXR, paracentesis - as above - unable to obtain fluid for SB on admission, as above - empirically covered with IV rocephin -> switched to zosyn - s/p paracentesis(03/25/2025), as above - WBC down to 12K today - Ucultx also posit. for Enterococcus faecium - started dapto, now given cultx sensitivities switched to vancomycin. Pt could be possibly on linezolid, however given thrombocytopenia would prefer vanco #Chronic hypoxic respiratory failure #COPD no acute exac #Hepatopulmonary syndrome Continue supplemental oxygen, trelegy #DVT PPX: SCDS in setting of GIB, thrombocytopenia FULL CODE PCP: Dr.Laura Dailey Dispo: PCU Admission and Anticipated Discharge Date Admission Date: March 22, 2025 Subjective Pt seen in follow up of hematemesis, anemia Underwent EGD w/ GI, s/p of esoph. radha. banding Currently sitting up in bed in NAD, reports back pain now improved somewhat (has hx of thorcic vert. fx) Denies any abdominal pain, had paracentesis yesterday. Denies any nausea/vomiting. Denies chest pain, shortness of breath. Currently on suppl. O2 (chronic) Hgb stable, cont. to closely monitor WBC improved Ucultx posit. for Enterococcus faecium - dapto switched. to vanco per cultures/sensitivities Review of Systems Review of Systems: All systems reviewed & are unremarkable except as noted in Subjective Physical Exam Physical Exam: Constitutional: thin, frail F in N AD Eyes: PERRL, conjunctiva e normal, anicteri c sclerae ENMT: external ear and n ose normal Neck: normal visual insp ection Respiratory: normal respiratory effort, lungs twin ar to auscultation Cardiovascular: RRR, no murmur, no edema Chest (Breasts): Chest: normal insp ection of chest Gastrointestinal ( Abdomen): nontender to palp ation, + some dist ention Musculoskeletal: no LE edema, moves extremities Skin: no rashes, warm an d dry Neurologic: PERRL, EOMI, no fa ce palsy, no dysar thria, moves extre mities Psychiatric: A+Ox3, euthymic af fect Results & Data Results & Data Vital Signs (Past 12 Hours) Vital Signs Temp Pulse Pulse Resp BP Pulse Ox O2 Del Method 03/26/25 16:00 36.7 C 74 17 94/62 L 97 Nasal Cannula 03/26/25 11:17 36.7 C 79 21 95/69 L 93 Nasal Cannula 03/26/25 08:00 78 03/26/25 08:00 37.0 C 79 17 91/54 L 93 Nasal Cannula O2 Flow Rate 03/26/25 16:00 3.0 03/26/25 11:17 3.0 03/26/25 08:00 03/26/25 08:00 3.0 Laboratory Results 03/26/25 Range/Units 05:33 WBC 12.29 H (4.8-10.8) K/ul RBC 2.48 L (4.20-5.40) M/uL Hgb 7.7 L (12.0-16.0) g/dl Hct 23.5 L (37.0-47.0) % MCV 94.8 (80.0-100.0) fL MCH 31.0 (25.0-34.0) pg MCHC 32.8 (32.0-36.0) g/dL RDW Std Deviation 63.7 H (36.4-46.3) fL RDW Coeff of Radha 19.7 H (11.5-14.5) % Plt Count 74 L (130-400) K/uL MPV 11.6 (9.4-12.4) fL Absolute Nucleated RBC 0.03 (0.00-0.12) K/uL Nucleated RBC % (auto) 0.2 % Sodium 137 (136-145) mmol/L Potassium 3.2 L (3.5-5.1) mmol/L Chloride 106 (98-107) mmol/L Carbon Dioxide 26 (21-32) mmol/L Anion Gap 5 (3-11) BUN 10 (6-23) mg/dl Creatinine 0.55 L (0.6-1.2) mg/dl Est Cr Clr Drug Dosing 96.8 ml/min eGFR 104.87 BUN/Creatinine Ratio 18.2 (10-20) Glucose 109 H (70-99(Fasting)) mg/dl Calcium 7.7 L (8.6-10.3) mg/dl Phosphorus 2.9 (2.5-4.9) mg/dl Magnesium 1.8 (1.7-2.4) mg/dl Medications Administered Current Inpatient Medications Fluticasone Furoate (Fluticasone Furoate 100mcg 14 Puffs/Inhaler) 1 puffs INH DAILY [facility] Stop: 04/22/25 08:59 Last Admin: 03/26/25 08:22 Dose: 1 puffs Pantoprazole Sodium (Protonix) 40 mg in 10 mls @ 5 mls/min IV BID [facility] Stop: 04/21/25 20:59 Last Admin: 03/26/25 08:21 Dose: 5 mls/min Vancomycin HCl (Vancomycin Hcl) 1,000 mg in 270 mls @ 200 mls/hr IV Q12H [facility] Stop: 04/05/25 19:59 Lidocaine (Lidocaine 5% 1 Patch) 1 patch TD HS [facility] Stop: 04/21/25 20:59 Last Admin: 03/25/25 20:14 Dose: Not Given Miscellaneous (Remove Lidoderm Patch) 1 each N/A DAILY@2100 [facility] Stop: 04/21/25 20:59 Last Admin: 03/25/25 20:15 Dose: Not Given Miscellaneous Information (Vancomycin Consult Active) 1 each N/A UD PRN PRN Reason: Consult Stop: 04/25/25 08:50 Multivitamins (Multivitamin Tab) 1 tab PO QAM [facility] Stop: 04/22/25 08:59 Last Admin: 03/26/25 10:22 Dose: 1 tab Oxycodone HCl (Oxycodone Hcl Ir 5 Mg Tab (Immediate Release)) 5 mg PO Q4 PRN PRN Reason: Severe Pain (Scale 7, 8, 9,10) Stop: 04/05/25 14:57 Last Admin: 03/26/25 11:25 Dose: 5 mg Umeclidinium/Vilanterol (Umeclidinium/Vilanterol 62.5/25mcg 7 Puffs/Inhaler) 1 puffs INH DAILY [facility] Stop: 04/22/25 08:59 Last Admin: 03/26/25 08:22 Dose: 1 puffs
[2025-03-26] MEDS: VANCOMYCIN HCL 1,000 MG/270 ML BAG IV SCH (20:11)
[2025-03-27 03:54] VITALS: RESP 18
[2025-03-27 05:11] LABS: Hematocrit (blood only) 24.8 % (37.0-47.0); Hemoglobin 8.2 g/dl (12.0-16.0); Mean Corpuscular Hemoglobin 31.3 pg (25.0-34.0); Mean Corpuscular Volume 94.7 fL (80.0-100.0); Platelet Count 82 K/uL (130-400); RDW Standard Deviation 63.0 fL (36.4-46.3); Red Blood Count 2.62 M/uL (4.20-5.40); White Blood Count 15.00 K/ul (4.8-10.8)
[2025-03-27 05:26] LABS: Anion Gap 5.0 (3-11); Blood Urea Nitrogen 7.0 mg/dl (6-23); Calcium 8.1 mg/dl (8.6-10.3); Carbon Dioxide 26.0 mmol/L (21-32); Chloride 106.0 mmol/L (98-107); Creatinine Clr Calc Pharmacy 113.3 ml/min; Glucose 124.0 mg/dl (70-99(Fasting)); Magnesium 1.8 mg/dl (1.7-2.4); Potassium 3.6 mmol/L (3.5-5.1); Sodium 137.0 mmol/L (136-145)
[2025-03-27 07:41] VITALS: TEMP 98.4
[2025-03-27 11:00] VITALS: O2SAT 92
[2025-03-27] MEDS: SPIRONOLACTONE 100 MG TAB PO SCH (12:09)
[2025-03-27] MEDS: FUROSEMIDE 40 MG TAB PO SCH (12:09)
--- NOTE | 2025-03-27 13:29 | Hospitalist Progress Note ---
Date of Service March 27, 2025 Assessment & Plan (1) Hematemesis: (2) Acute blood loss anemia: (3) Decompensated cirrhosis: Plan This is a 59 yr old F who has a significant PMH of Alcoholic Cirrhosis of liver, Portal hypertension, Esophageal varices, Hepatitis C antibody positive s/p treatment, Chronic hypoxic respiratory failure, Hepatopulmonary syndrome, Protein calorie malnutrition, COPD and Depression who presents to ED 2/2 hematemesis x 1 day. Hematemesis Acute Upper GI bleed: Esophageal varices S/P Banding Alcoholic cirrhosis decompensated Acute/chronic blood loss anemia Ascites --S/P 2 units PRBCs --S/P EGD: Grade II esophageal varices. Banded. Portal hypertensive gastropathy. Hematin (altered blood/tqhzxn-lqwabt-vfku material) in the gastric fundus and in the gastric body. Normal examined duodenum. --s/p paracentesis --Peritoneal fluid culture negative to date --IV PPI, octreotide discontinued -- Could not start beta-blockers as recommended by GI due to hypotension --Appreciate GI input --Continue Protonix 40 mg twice a day --Tolerating regular diet --Needs repeat endoscopy in 6 to 8 weeks to reassess varices Urinary tract infection --Blood cultures negative --Urine culture grew Enterococcus -- Received daptomycin>> vancomycin (completed 3-day course) -- Transition to oral antibiotics to complete the course Chronic hypoxic respiratory failure COPD no acute exac Hepatopulmonary syndrome Continue supplemental oxygen, Trelegy DVT PX: SCDS in setting of GIB, thrombocytopenia FULL CODE PCP: Dr.Laura Dailey Admission and Anticipated Discharge Date Admission Date: March 22, 2025 Subjective Patient is seen and examined at bedside Denies any recurrence of hematemesis Reports poor sleep Prefers to be discharged home today Denies any chest pain, dyspnea, nausea, vomiting, abdominal pain No other complaints today Review of Systems Review of Systems: All systems reviewed & are unremarkable except as noted in Subjective Physical Exam Physical Exam: Physical Exam: Vitals signs as noted above General Appearance: Thin, frail, chronic ill-appearing, no apparent distress Head: normocephalic, Atraumatic Eyes: normal inspection, EOMI Neck: supple, Trachea midline Respiratory/Chest: Normal breath sounds, CTA, No accessory muscle use Cardiovascular: S1, S2, No murmur Abdomen/GI:Soft, Non tender, mild distention, bowel sounds present Extremities/Musculoskeletal:normal inspection, no edema Neurologic/Psych:AAOX3, grossly no focal neurological deficits Skin: normal color, warm Results & Data Results & Data Vital Signs (Past 12 Hours) Vital Signs Temp Pulse Pulse Resp BP BP Pulse Ox 03/27/25 10:59 36.9 C 75 18 93/67 L 92 03/27/25 08:00 78 03/27/25 07:40 36.9 C 81 18 97/50 L 93 03/27/25 03:51 80 18 94/64 L 93 O2 Del Method O2 Flow Rate 03/27/25 10:59 Nasal Cannula 3 03/27/25 08:00 03/27/25 07:40 Nasal Cannula 3 03/27/25 03:51 Nasal Cannula 3.0 Laboratory Results Short CBC 03/27/25 Range/Units 04:45 WBC 15.00 H (4.8-10.8) K/ul Hgb 8.2 L (12.0-16.0) g/dl Hct 24.8 L (37.0-47.0) % Plt Count 82 L (130-400) K/uL BMP 03/27/25 04:45 Sodium 137 Potassium 3.6 Chloride 106 Carbon Dioxide 26 BUN 7 Creatinine 0.47 L Glucose 124 H Calcium 8.1 L
--- NOTE | 2025-03-27 13:39 | Discharge Summary ---
Date of Service March 27, 2025 Admission HPI Per Admitting Provider This is a 59 yr old F who has a significant PMH of Alcoholic Cirrhosis of liver, Portal hypertension, Esophageal varices, Hepatitis C antibody positive s/p treatment , Chronic hypoxic respiratory failure, Hepatopulmonary syndrome, Protein calorie malnutrition, COPD and Depression who presents to ED 2/2 hematemesis. She was scheduled to come in today for a routine paracentesis; however started vomiting blood last night. Today she has had multiple episodes of bloody emesis. Of significance pt was last admitted 02/05-02/06 2/2 decompensated cirrhosis and 30lb weight gain. She underwent paracentesis and was discharged. She states her sx started yesterday morning. It was black/red in color. It stopped last night. She didn't eat yesterday. She was up and down at night because of back pain. She got in the middle of the night with nausea, but she felt she had nothing else to throw up. She did throw up here in the ED as well and it was solid red. She is having a lot of pain in her abdomen and back. She is also having chest pain that started last night. She described it as a heart burn. She continues to have chronic SOB, but feels this is unchanged. Her last paracentesis was a few weeks ago. She denies fever, chills, sweats, hemoptysis, cough, diarrhea, melena or hematochezia. In ED pt was found to have significant leukocytosis at 34k, h/h at 7.3 and 22.3 which is down from her baseline of approximately 9.0 M/uL. Her total bili was 1.7, direct bili 0.5 and AST 43. She is a smoker and currently trying to quit. She has not had a cigarette in some time. She denies alcohol or elicit drug use. Admission Exam Per Admitting Provider On exam, profound cachexia and sarcopenia noted, fluid wave with distended abdomen, mild diffuse tenderness to palpation of abdomen without peritoneal signs. Principal Diagnosis Acute upper gastrointestinal bleed due to esophageal varices Acute blood loss anemia Alcoholic cirrhosis Ascites Urinary tract infection Discharge Data Allergies Allergy/AdvReac Type Severity Reaction Status Date / Time codeine AdvReac Severe upset Verified 02/05/25 12:24 stomach Consultations 03/22/25 09:49 Consult Gastroenterology Stat ED Decision to Admit Stat Procedures Performed Operation Date: 03/22/25 15:45 Actual Procedures p Esophagogastroduodenoscopy with banding - Jose Carlos Greene MD Ordered Studies Laboratory Results WBC 15.00 K/ul (4.8-10.8) H 03/27/25 04:45 RBC 2.62 M/uL (4.20-5.40) L 03/27/25 04:45 Hgb 8.2 g/dl (12.0-16.0) L 03/27/25 04:45 POC Hgb 7.5 g/dl (12.0-16.0) L 03/22/25 08:59 Hct 24.8 % (37.0-47.0) L 03/27/25 04:45 POC Hct 22 % (37-47) L 03/22/25 08:59 MCV 94.7 fL (80.0-100.0) 03/27/25 04:45 MCH 31.3 pg (25.0-34.0) 03/27/25 04:45 MCHC 33.1 g/dL (32.0-36.0) 03/27/25 04:45 RDW Std Deviation 63.0 fL (36.4-46.3) H 03/27/25 04:45 RDW Coeff of Radha 20.2 % (11.5-14.5) H 03/27/25 04:45 Plt Count 82 K/uL (130-400) L 03/27/25 04:45 MPV 11.1 fL (9.4-12.4) 03/27/25 04:45 Immature Gran % (Auto) 4.7 % 03/22/25 08:56 Neut % (Auto) 71.2 % 03/22/25 08:56 Lymph % (Auto) 5.8 % 03/22/25 08:56 Charlotte % (Auto) 14.8 % 03/22/25 08:56 Eos % (Auto) 1.9 % 03/22/25 08:56 Baso % (Auto) 1.6 % 03/22/25 08:56 Neut # (Auto) 27.07 K/uL (1.40-6.50) H 03/22/25 08:56 Lymph # (Auto) 2.21 K/uL (1.20-3.40) 03/22/25 08:56 Charlotte # (Auto) 5.61 K/uL (0.11-0.59) H 03/22/25 08:56 Eos # (Auto) 0.71 K/uL (0.00-0.50) H 03/22/25 08:56 Baso # (Auto) 0.59 K/uL (0.00-0.20) H 03/22/25 08:56 Immature Gran # (Auto) 1.79 K/uL (0.01-0.20) H 03/22/25 08:56 Absolute Nucleated RBC 0.03 K/uL (0.00-0.12) 03/26/25 05:33 Nucleated RBC % (auto) 0.2 % 03/26/25 05:33 Hypersegmented Neuts 1+ 03/22/25 08:56 Platelet Estimate Decreased (Normal) L 03/23/25 02:46 Polychromasia 1+ 03/22/25 08:56 Basophilic Stippling 1+ 03/22/25 08:56 PT 13.6 Seconds (9.0-12.0) H 03/22/25 08:56 INR 1.3 (0.9-1.1) H 03/22/25 08:56 APTT 26 Seconds (21-31) 03/22/25 08:56 PTT Ratio 1.0 03/22/25 08:56 POC Sodium 136 mmol/L (135-144) 03/22/25 08:59 Sodium 137 mmol/L (136-145) 03/27/25 04:45 POC Potassium 3.3 mmol/L (3.3-5.0) 03/22/25 08:59 Potassium 3.6 mmol/L (3.5-5.1) 03/27/25 04:45 POC Chloride 99 mmol/L (101-112) L 03/22/25 08:59 Chloride 106 mmol/L (98-107) 03/27/25 04:45 Carbon Dioxide 26 mmol/L (21-32) 03/27/25 04:45 POC Total CO2 24 mmol/L (24-31) 03/22/25 08:59 Anion Gap 5 (3-11) 03/27/25 04:45 POC Anion Gap 18.0 mmol/L (16-25) 03/22/25 08:59 POC BUN 31 mg/dl (7-18) H 03/22/25 08:59 BUN 7 mg/dl (6-23) 03/27/25 04:45 Creatinine 0.47 mg/dl (0.6-1.2) L 03/27/25 04:45 POC Creatinine 0.7 mg/dl (0.6-1.3) 03/22/25 08:59 Est Cr Clr Drug Dosing 113.3 ml/min 03/27/25 04:45 eGFR 108.92 03/27/25 04:45 BUN/Creatinine Ratio 14.9 (10-20) 03/27/25 04:45 Glucose 124 mg/dl (70-99(Fasting)) H 03/27/25 04:45 POC Glucose (other) 117 mg/dl (70-99) H 03/22/25 08:59 Lactate 1.9 mmol/L (0.4-2.0) 03/22/25 15:05 Calcium 8.1 mg/dl (8.6-10.3) L 03/27/25 04:45 POC Ioniz Calcium Simon 1.12 mmol/l (1.12-1.32) 03/22/25 08:59 Phosphorus 2.2 mg/dl (2.5-4.9) L 03/27/25 04:45 Magnesium 1.8 mg/dl (1.7-2.4) 03/27/25 04:45 Total Bilirubin 1.7 mg/dl (0.2-1.0) H 03/25/25 05:27 Direct Bilirubin 0.5 mg/dl (0-0.2) H 03/22/25 08:56 AST 32 U/L (13-39) 03/25/25 05:27 ALT 13 U/L (7-52) 03/25/25 05:27 Alkaline Phosphatase 63 U/L (34-104) 03/25/25 05:27 Troponin I High Sens 7.4 pg/ml (0-14) 03/22/25 08:56 Total Protein 4.7 gm/dl (6.0-8.3) L 03/25/25 05:27 Albumin 2.5 gm/dl (3.4-5.0) L 03/25/25 05:27 Globulin 2.2 gm/dl (2.5-4.0) L 03/25/25 05:27 Albumin/Globulin Ratio 1.1 (0.9-2) 03/25/25 05:27 Lipase 72 U/L (11-82) 03/22/25 08:56 Urine Color Dark Yellow 03/24/25 Unknown Urine Appearance Clear (Clear) 03/24/25 Unknown Urine pH 6.0 (4.5-7.5) 03/24/25 Unknown Ur Specific Tinnie 1.018 (1.000-1.030) 03/24/25 Unknown Urine Protein Negative (Negative) 03/24/25 Unknown Urine Glucose (UA) Negative (Negative) 03/24/25 Unknown Urine Ketones Negative (Negative) 03/24/25 Unknown Urine Blood 2+ (Negative) H 03/24/25 Unknown Urine Nitrite Negative (Negative) 03/24/25 Unknown Urine Bilirubin Negative (Negative) 03/24/25 Unknown Urine Urobilinogen Negative (Negative) 03/24/25 Unknown Ur Leukocyte Esterase 2+ (Negative) H 03/24/25 Unknown Urine WBC (Auto) 11-20 /hpf (0-5) H 03/24/25 Unknown Urine RBC (Auto) >20 /hpf (0-2) H 03/24/25 Unknown U Hyaline Cast (Auto) 0-2 /lpf (0-2) 03/24/25 Unknown U Epithel Cells (Auto) 0-2 /hpf (0-2) 03/24/25 Unknown Urine Bacteria (Auto) None Seen (None Seen) 03/24/25 Unknown Urine Comment 03/24/25 Unknown Fluid Neutrophils % 40 % 03/25/25 Unknown Fluid Lymphocytes % 9 % 03/25/25 Unknown Fluid Meso/Macro/Charlotte % 51 % 03/25/25 Unknown Fluid Comment 03/25/25 Unknown Peritoneal Color Yellow 03/25/25 Unknown Peritoneal Appearance Clear 03/25/25 Unknown Peritoneal WBC (Auto) 371 /ul (0-300) H 03/25/25 Unknown Peritoneal RBC (Auto) < 2000 /uL 03/25/25 Unknown Peritoneal Tot Protein < 3.0 gm/dl 03/25/25 Unknown Nasal Screen MRSA (PCR) Negative (Negative) 03/22/25 Unknown Blood Type B Positive 03/22/25 08:56 Antibody Screen NEGATIVE 03/22/25 08:56 Crossmatch See Detail 03/22/25 08:56 Impressions Chest X-Ray 03/24/25 08:14 TWO VIEW CHEST CLINICAL HISTORY: Leukocytosis. FINDINGS: PA and lateral chest radiographs are compared to study dated 03/22/2025 and correlated with chest CT dated 01/17/2025. The heart is enlarged noting atherosclerotic calcification of the thoracic aorta. The pulmonary vasculature is noncongested. Advanced emphysema and chronic interstitial thickening is similar to previous. There is bibasilar scarring/atelectasis. No airspace consolidation or large pleural effusion is identified. There is no pneumothorax. The skeletal structures are osteopenic. Impression deformities are noted in the midthoracic region. There are chronic/healed bilateral rib fractures. IMPRESSION: Cardiomegaly and emphysema with no acute cardiopulmonary abnormality identified. ACT 112: Negative or not required by law. Electronically signed by: Ismael Post M.D. 03/24/2025 9:04 AM Paracentesis Ultrasound 03/25/25 07:00 ULTRASOUND-GUIDED PARACENTESIS CLINICAL HISTORY: Ascites PROCEDURE: Procedure and risks were explained. Informed consent was obtained. A final timeout was completed. The abdomen was prepped and draped in sterile fashion. 1% lidocaine was utilized for skin anesthesia. Utilizing ultrasound guidance, a 5 Chinese safety centesis catheter was advanced into the left lower quadrant pocket of ascites. Ultrasound images were obtained. 1 L of ascites fluid was removed and sent to the lab for analysis. The catheter was removed and Band-Aid applied. The patient tolerated the procedure well. Vital signs will be monitored postprocedure. IMPRESSION: Ultrasound-guided paracentesis as above. Performed, dictated, and signed by Berny Bales PA-C; to be co-signed by Dr. Ash Sage. Electronically signed by: Ash Sage M.D. 03/25/2025 4:51 PM Hospital Course (1) Hematemesis: (2) Acute blood loss anemia: (3) Decompensated cirrhosis: Plan This is a 59 yr old F who has a significant PMH of Alcoholic Cirrhosis of liver, Portal hypertension, Esophageal varices, Hepatitis C antibody positive s/p treatment, Chronic hypoxic respiratory failure, Hepatopulmonary syndrome, Protein calorie malnutrition, COPD and Depression who presents to ED 2/2 hematemesis x 1 day. Hematemesis Acute Upper GI bleed: Esophageal varices S/P Banding Alcoholic cirrhosis decompensated Acute/chronic blood loss anemia Ascites --S/P 2 units PRBCs --S/P EGD: Grade II esophageal varices. Banded. Portal hypertensive gastropathy. Hematin (altered blood/[id number]-[id number]-bevq material) in the gastric fundus and in the gastric body. Normal examined duodenum. --s/p paracentesis --Peritoneal fluid culture negative to date --IV PPI, octreotide discontinued -- Could not start beta-blockers as recommended by GI due to hypotension --Appreciate GI input --Continue Protonix 40 mg twice a day --Tolerating regular diet --Needs repeat endoscopy in 6 to 8 weeks to reassess varices Urinary tract infection --Blood cultures negative --Urine culture grew Enterococcus -- Received daptomycin>> vancomycin (completed 3-day course) -- Transition to oral antibiotics to complete the course Chronic hypoxic respiratory failure COPD no acute exac Hepatopulmonary syndrome Continue supplemental oxygen, Trelegy DVT PX: SCDS in setting of GIB, thrombocytopenia FULL CODE PCP: Dr.Laura Dailey Total Time Total Time Spent Total Time Spent (In Minutes): 52 minutes Discharge Plan Discharge Items Patient Disposition: Home - Home Health Services Reason For Visit: HEMATEMESIS Discharge Diagnosis: Acute upper gastrointestinal bleed due to esophageal varices Acute blood loss anemia Alcoholic cirrhosis Ascites Urinary tract infection Condition on Discharge: Critical Activity: Per Instructions section Exercise/Sports: Wait until after follow-up appointment Non-emergency contact: Primary Care Provider and 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 Lawrence in 1 week --Follow-up with your turnstile attendant for repeat endoscopy in 6 to 8 weeks --Complete the antibiotic course Zyvox as prescribed for 2 more days for urinary tract infection (start taking your antibiotic from 03/28/2025) --Get blood work (complete blood count, basic metabolic panel) in 1 week and follow-up with your primary care physician for further recommendations -- Avoid using alcohol, NSAIDs which can worsen your liver disease, bleeding issues. --Your cultures from your ascitic fluid are pending at the time of discharge. Follow-up with your physician for results. Do not take group of medications belonging to NSAIDs group -can cause worsening of gastrointestinal bleeding, kidney function. List Of these medications includes but not limited to: Aspirin Diclofenac Ibuprofen, Motrin, Advil Toradol,ketorolac Naproxen, Aleve, Naprosyn When buying [id number] pain medications please consult with pharmacy if you are not sure regarding ingredients, as a lot of the pain medications have combination of NSAIDs and Tylenol. Seek immediate medical attention if your symptoms reoccur or worsen Please review medication list provided on discharge for any medication changes as instructed. Please call if you have any questions or problems. You can reach a [facility] hospitalist on duty at [facility] 24 hours a day by calling [phone] Pending Studies at Discharge: Yes Studies:: Peritoneal fluid culture Stand-Alone Forms: My [facility] [employer], Smoking Cessation Medications and DC Order Prescriptions: New linezolid [Zyvox] 600 mg tablet 600 mg PO BID Qty: 4 0RF Continued albuterol sulfate 90 mcg/actuation Hfa Aerosol Inhaler 2 puff INHALATION Q4 PRN (Reason: Wheezing) Patient Comments: 03/22- last filled 08/13/24 34 day supply multivitamin Tablet 1 tab PO DAILY Patient Comments: 03/22- otc unable to verify spironolactone 100 mg Tablet 100 mg PO QAM Qty: 30 0RF Trelegy Ellipta 100-62.5-25 mcg blister with device 100 inh INHALATION QAM Patient Comments: 03/22- last filled 09/09/24 90 day supply furosemide 20 mg Tablet 40 mg PO QAM Qty: 60 0RF docusate sodium 100 mg Capsule 100 mg PO BID PRN (Reason: Constipation) Patient Comments: 03/22- otc unable to verify lidocaine 5 % Adhesive Patch,Medicated 1 patch transdermal HS Qty: 30 0RF oxycodone 5 mg tablet 5 mg PO BID PRN (Reason: Pain, Severe) Changed pantoprazole 40 mg Tablet,Delayed Release (Dr/Ec) 40 mg PO BID Qty: 60 1RF Discharge Orders: Discharge Order (Routine); Ordered 03/27/25 Ordered By: Esteban Degroot Admission Data Admit Date/Time: 03/22/25 12:31 Attending Provider: Esteban Degroot Admit Provider: Austyn Rivera Primary Care Provider: Sumi Dailey Other Providers: Jose Carlos Greene I; Austyn Rivera; Patria Holm I.; [facility]
[2025-03-27 13:56] VITALS: BP 94/64; PULSE 74
== END 2025-03-27 14:35 | disposition home health service (06) | DRG 369 ==
LOC: ED 08:29 → OR 12:30 → SUATTDRO 12:31 → 2E 12:31 → OR 12:42

== ENCOUNTER 2025-04-03 18:07 | Inpatient (IN) ==
[2025-04-03 18:36] LABS: Base Excess VBG 1.3 mEq/L; HCO3 VBG 25 mmol/L; Oxygen Saturation VBG < 60.0 %; PCO2 VBG 36 mmHg (38-50); PO2 VBG 33 mmHg; pH VBG 7.45 (7.36-7.41)
--- NOTE | 2025-04-03 18:39 | Emergency Department Note ---
Impression & Plan Acute dyspnea Admission ED Provider Note HPI: History obtained from patient. The patient is a 59-year-old female with history of alcoholic cirrhosis, COPD, on 2 L nasal cannula oxygen at baseline at home, who presents the emergency department with a chief complaint of shortness of breath. Patient states this is been worsening over the past several days. Patient states this past Tuesday she had 3 L drained during a paracentesis but her distention and pain quickly returned. Patient states that she has some pain generally in her abdomen as well as some pain in her back that is chronic in nature. On arrival here to the ED the patient is hemodynamically stable, she is saturating at 98% on her baseline oxygen on arrival. ROS: - Per HPI Differential Diagnosis: Acute CHF exacerbation, pneumonia, pulmonary edema, ACS, abdominal compartment syndrome, ascites/cirrhosis, SBP, lymphedema, amongst other potential pathologies. *Outpatient medications and allergy history reviewed. PE: General: Alert, frail-appearing, no acute distress HEENT: Normocephalic, trachea midline Eyes: Extraocular eye movement is intact, no scleral erythema Pulmonary: Clear to auscultation bilaterally, no wheezing Cardio: Regular rate and rhythm GI: Abdomen is distended, overall soft to palpation without rigidity : No suprapubic tenderness MSK: No evidence of trauma or malformation of the extremities, 2-3+ edema of the bilateral lower extremities without any discoloration Skin: No evidence of rash Neuro: Alert, no focal deficits Psychiatric: Cooperative INDEPENDENT INTERPRETATIONS: traffic monitor specialist: (As interpreted by myself): - An order was placed for continuous cardiac monitoring - Patient was noted to be in sinus rhythm with a rate of 80 EKG: (As interpreted by myself): Rate: 90 Rhythm: Normal sinus rhythm Intervals: Within normal limits ST changes: No ST elevation Time: 1818 Chest x-ray: (As interpreted by myself): Mild pulmonary vascular congestion Interventions provided in ED: - IV morphine Medical Decision Making: IV was established and lab work obtained, patient was placed on quality assurance monitor. Patient was given a dose of IV morphine by request for pain in her abdomen and her back. She states that she has some chronic compression fractures and her pain worsens when her abdomen gets more distended from her cirrhosis/ascites. Chest x-ray shows some mild pulmonary vascular congestion. BNP is within normal limits. Lab work otherwise shows no leukocytosis, hemoglobin is stable at 9.7 which appears to be the patient's baseline, platelet count is normal, CMP shows a mild hypokalemia at 3.2, no evidence of any acute kidney injury. On my reevaluation the patient states that she is feeling improved. She is requesting admission for evaluation for paracentesis tomorrow morning. I did discuss the patient's presentation with the on-call hospitalist, Dr. Arana, and the patient was placed for admission in stable condition. Consultants/Discussions held with other healthcare providers: - Hospitalist, Dr. Arana Disposition discussion held by myself with: - Patient Diagnosis: 1. Acute on chronic abdominal pain 2. Cirrhosis, chronic 3. Dyspnea, acute, nonspecific Disposition: Admission Bertram Meier DO Emergency Medicine Past Med/Surg History Problem List (Updated 04/03/25 @ 21:40 by Bertram Meier DO) Acute dyspnea (Acute) Hemorrhagic shock (Acute) Bleeding esophageal varices (Acute) Hematemesis Acute on chronic back pain Hypomagnesemia (Acute) Fluid overload (Acute) Pedal edema (Acute) Ascites (Acute) SOB (shortness of breath) (Acute) Compression fx, thoracic spine Acute blood loss anemia (Acute) Hepatopulmonary syndrome Chronic bronchitis Acute respiratory failure with hypoxia Fall (Acute) Closed fracture of right hip (Acute) Cirrhosis (Acute) Chronic constipation Tobacco use disorder Decompensated cirrhosis Encounter for pre-operative examination Abdominal pain (Acute) Total bilirubin, elevated (Acute) Abdominal pain Injury of left leg (Acute) Encounter for pre-operative examination Ascites (Acute) Alcoholic cirrhosis (Acute) Melena DVT prophylaxis Portal hypertension COPD (chronic obstructive pulmonary disease) Transaminitis (Acute) Thrombocytopenia (Acute) Cirrhosis of liver (Chronic 11/21/12) Medical History COPD with emphysema Anemia Ascites Pancytopenia Hx of esophageal varices Acute upper gastrointestinal bleeding Hepatitis C treated with harvoni in [facility] pt is now negative Alcohol abuse Per pt none in 2 years Alcoholic cirrhosis Surgical History Hx of pelvic surgery History of tubal ligation Family History Mother Cervical cancer Social History Smoking Status: Former smoker Tobacco Type: Cigarettes Cigarettes Per Day: recently quit; Second Hand Exposure: No; Do You Dip or Chew Tobacco: No; Hx Alcohol Use: No Hx Substance Use: No Preferred Language: [place] Communication Ability: Effective Customer Service Driver Required: No Beliefs That Will Affect Care: None marital status: Current Living Situation: Spouse Feels Safe at Home: Yes Safety Concerns: Feels Safe At This Time Assistive Devices: Oxygen - at Night, Oxygen - Continuous and Walker Allergies Allergies Allergy/AdvReac Type Severity Reaction Status Date / Time codeine AdvReac Severe upset Verified 02/05/25 12:24 stomach Home Meds Home Medications Medication Instructions Recorded Confirmed albuterol sulfate 90 mcg/actuation 2 puff inhalation Q4 PRN Wheezing 01/08/19 04/03/25 aerosol inhaler multivitamin 1 tab PO DAILY 12/29/21 04/03/25 fluticasone fur. 100 mcg-umeclid 1 inh inhalation QAM 11/07/24 04/03/25 62.5 mcg-vilant 25 mcg inhalat.powder (Trelegy Ellipta) docusate sodium 100 mg capsule 100 mg PO BID PRN Constipation 01/10/25 04/03/25 oxycodone 5 mg tablet 5 mg PO BID PRN Pain, Severe 03/22/25 04/03/25 furosemide 40 mg tablet 40 mg PO QAM 04/03/25 04/03/25 linezolid 600 mg tablet (Zyvox) 600 mg PO AMHS 04/03/25 04/03/25 potassium chloride 20 mEq 20 meq PO Q OTHER DAY 04/03/25 04/03/25 tablet,extended release(part/cryst) Previous Rx's Medication Instructions Recorded spironolactone 100 mg tablet 100 mg PO QAM #30 tabs 12/15/22 pantoprazole 40 mg tablet,delayed 40 mg PO BID #60 tabs 03/27/25 release Results & Data (ED) Vital Signs Vital Signs - 24 hr 04/03/25 18:08 04/03/25 18:08 04/03/25 18:13 Temperature 36.7 C Temperature Source Temporal Artery Scan Pulse Rate 101 H 84 Pulse Rate [Apical] Respiratory Rate 30 H 20 Respiratory Effort / Characteristics Respiratory Depth Respiratory Pattern Blood Pressure 110/62 Blood Pressure [Right Arm] Blood Pressure Mean 78 Blood Pressure Mean [Right Arm] Blood Pressure Position [Right Arm] Pulse Oximetry 95 98 98 Oxygen Delivery Method Nasal Cannula Nasal Cannula Nasal Cannula Oxygen Flow Rate 4 2 Sepsis New/Unexplained Change in Mental Status No Sepsis Action Taken by Nursing No Action Required 04/03/25 18:19 04/03/25 18:55 Temperature Temperature Source Pulse Rate 91 H Pulse Rate [Apical] 91 H Respiratory Rate 18 Respiratory Effort / Characteristics Non-Labored Spontaneous Respiratory Depth Normal Respiratory Pattern Regular Blood Pressure Blood Pressure [Right Arm] 117/77 Blood Pressure Mean Blood Pressure Mean [Right Arm] 90 Blood Pressure Position [Right Arm] Semi-fowlers Pulse Oximetry 98 Oxygen Delivery Method Nasal Cannula Oxygen Flow Rate 2 Sepsis New/Unexplained Change in Mental Status Sepsis Action Taken by Nursing Laboratory Data 04/03/25 18:26 04/03/25 18:26 Lab Results 04/03/25 Range/Units 18:26 WBC 9.88 (4.8-10.8) K/ul RBC 3.20 L (4.20-5.40) M/uL Hgb 9.7 L (12.0-16.0) g/dl Hct 30.0 L (37.0-47.0) % MCV 93.8 (80.0-100.0) fL MCH 30.3 (25.0-34.0) pg MCHC 32.3 (32.0-36.0) g/dL RDW Std Deviation 65.9 H (36.4-46.3) fL RDW Coeff of Radha 20.0 H (11.5-14.5) % Plt Count 136 (130-400) K/uL MPV 11.1 (9.4-12.4) fL Immature Gran % (Auto) 1.3 % Neut % (Auto) 61.7 % Lymph % (Auto) 8.7 % [place] % (Auto) 23.0 % Eos % (Auto) 2.9 % Baso % (Auto) 2.4 % Neut # (Auto) 6.09 (1.40-6.50) K/uL Lymph # (Auto) 0.86 L (1.20-3.40) K/uL [place] # (Auto) 2.27 H (0.11-0.59) K/uL Eos # (Auto) 0.29 (0.00-0.50) K/uL Baso # (Auto) 0.24 H (0.00-0.20) K/uL Immature Gran # (Auto) 0.13 (0.01-0.20) K/uL PT 13.0 H (9.0-12.0) Seconds INR 1.2 H (0.9-1.1) VBG pH 7.45 H (7.36-7.41) VBG pCO2 36 L (38-50) mmHg VBG pO2 33 mmHg VBG HCO3 25 mmol/L VBG O2 Saturation < 60.0 % VBG Base Excess 1.3 mEq/L Sodium 137 (136-145) mmol/L Potassium 3.2 L (3.5-5.1) mmol/L Chloride 105 (98-107) mmol/L Carbon Dioxide 24 (21-32) mmol/L Anion Gap 8 (3-11) BUN 8 (6-23) mg/dl Creatinine 0.59 L (0.6-1.2) mg/dl Est Cr Clr Drug Dosing Not Reportable eGFR 103.11 BUN/Creatinine Ratio 13.6 (10-20) Glucose 93 (70-99(Fasting)) mg/dl Calcium 8.7 (8.6-10.3) mg/dl Magnesium 1.7 (1.7-2.4) mg/dl Total Bilirubin 2.1 H (0.2-1.0) mg/dl AST 35 (13-39) U/L ALT 18 (7-52) U/L Alkaline Phosphatase 129 H (34-104) U/L B-Natriuretic Peptide 58 (0-100) pg/ml Total Protein 6.7 (6.0-8.3) gm/dl Albumin 3.5 (3.4-5.0) gm/dl Globulin 3.2 (2.5-4.0) gm/dl Albumin/Globulin Ratio 1.1 (0.9-2) Administered Medications Pantoprazole Sodium (Pantoprazole 40 Mg Tab) 40 mg PO BID STEPHAN Stop: 05/03/25 20:59 Last Admin: 04/03/25 20:36 Dose: 40 mg Documented By: NAW Discontinued Medications Morphine Sulfate (Morphine Sulfate 4 Mg/Ml 1 Ml Carp\Vial) 4 mg IV NOW STA Stop: 04/03/25 18:40 Last Admin: 04/03/25 18:53 Dose: 4 mg Documented By: RIK Oxycodone HCl (Oxycodone Hcl Ir 5 Mg Tab (Immediate Release)) 5 mg PO NOW STA Stop: 04/03/25 20:18 Last Admin: 04/03/25 20:36 Dose: 5 mg Documented By: NAW Potassium Chloride (Potassium Chloride Pwd 20 Meq Pack) 40 meq PO NOW STA Stop: 04/03/25 19:24 Last Admin: 04/03/25 20:39 Dose: 40 meq Documented By: NAW Imaging Data Radiologist's Impression: Chest X-Ray 04/03/25 18:13 EXAM: Portable AP chest radiograph TECHNIQUE: AP portable radiograph of the chest was obtained. INDICATION: Shortness of breath Comparison: Chest radiograph January 22, 2025 FINDINGS: LINES and TUBES: None CARDIOVASCULAR: Cardiac silhouette is stable and mildly in size. LUNGS/PLEURA: Mild pulmonary vascular congestion and chronic interstitial lung changes are similar to the previous. No focal consolidation is identified with interval clearing of previously present mid to lower lung patchy infiltrates. No significant pleural fluid. No discernible pneumothorax. OSSEOUS/OTHER: No displaced acute osseous process identified. IMPRESSION: Mild congestive changes of the cardiovascular system that are similar to the previous radiograph. No focal consolidation is identified with interval clearing of previously present mid to lower lung patchy infiltrates. Electronically signed by Nile Flores 04-03-2025 7:55 PM Discharge Plan Visit Data Chief Complaint: Shortness of Breath/Dyspnea Stated Complaint: SOB, IMMENSE FLUID ED Provider: Bertram Meier Discharge Problem: Acute dyspnea Patient Disposition: Admitted As Inpatient Condition: Fair Discharge Instructions Interventions: ED Discharge Assessment Last Done: 04/03/25 19:57
[2025-04-03 18:45] LABS: Hematocrit (blood only) 30.0 % (37.0-47.0); Hemoglobin 9.7 g/dl (12.0-16.0); Immature Granulocytes # (auto) 0.13 K/uL (0.01-0.20); Immature Granulocytes % (auto) 1.3 %; Mean Corpuscular Hemoglobin 30.3 pg (25.0-34.0); Mean Corpuscular Volume 93.8 fL (80.0-100.0); Platelet Count 136 K/uL (130-400); RDW Standard Deviation 65.9 fL (36.4-46.3); Red Blood Count 3.20 M/uL (4.20-5.40); White Blood Count 9.88 K/ul (4.8-10.8)
[2025-04-03] MEDS: MoRPHine SULFATE 4 MG/ML 1 ML CARP\\VIAL IV STA (18:53)
[2025-04-03 18:57] LABS: Alanine Aminotransferase 18 U/L (7-52); Albumin Globulin Ratio 1.1 (0.9-2); Alkaline Phosphatase 129 U/L (34-104); Anion Gap 8 (3-11); Bilirubin,Total 2.1 mg/dl (0.2-1.0); Blood Urea Nitrogen 8 mg/dl (6-23); Calcium 8.7 mg/dl (8.6-10.3); Carbon Dioxide 24 mmol/L (21-32); Chloride 105 mmol/L (98-107); Globulin 3.2 gm/dl (2.5-4.0); Glucose 93 mg/dl (70-99(Fasting)); Potassium 3.2 mmol/L (3.5-5.1); Sodium 137 mmol/L (136-145); Total Protein 6.7 gm/dl (6.0-8.3)
[2025-04-03 19:19] LABS: INR 1.2 (0.9-1.1); Prothrombin Time 13.0 Seconds (9.0-12.0)
--- NOTE | 2025-04-03 19:45 | History & Physical Report ---
Date of Service April 03, 2025 Assessment & Plan (1) SOB (shortness of breath): Plan: Assessment and plan below following discussion of case with ED provider and reviewing patient history/pertinent normal/abnormal diagnostic test results. SOB secondary to painful ascites Decompensated cirrhosis Possible SBP No sepsis for now COPD, chronic cough symptoms HCV status post Rx History esophageal varices anemia, hemoglobin at baseline Mood disorder, stable past alcohol/tobacco abuse Recurrent admissions, rule out functional disability Admit to med/tele Ceftriaxone, albumin for possible SBP Diagnostic and therapeutic paracentesis in a.m. Diuretic Rx GI consult re: recurrent ascites, decompensated cirrhosis PT OT eval DVT prophylaxis. SCDs re: recent GI bleed Full code Text document was generated using [employer] voice recognition software. It may contain grammatical or spelling errors. Kindly contact undersigned for clarification of any documentation item in question. History of Present Illness Chief Complaint: Shortness of breath, abdominal pain/distention Primary Care Provider: Sumi Dailey DO History obtained from patient and records. Medical history significant for COPD, nocturnal hypoxemia as per records, alcoholic cirrhosis, history of esophageal varices, portal hypertension, HCV status post Rx, anemia (baseline hemoglobin 8-9), chronic thrombocytopenia,anxiety/mood disorder, past alcohol/tobacco abuse. Six admissions since October, Recent confinement March 22 to 2024 for UGIB secondary to esophageal varices. Grade 2 esophageal varices on endoscopy. Subsequent banding done. Patient also noted to have ascites status post paracentesis. Patient also discharged on Zyvox course for Enterococcus UTI. Patient noted painful abdominal distention over the last 2 days. Abdominal distention causing her to be short of breath. No unusual cough symptoms. Denies chest pain. No black/bloody stools. Legs more swollen than usual. Compliant with home medications. Denies inordinate salt intake. Medical History as above Surgical History : BTL, right hip replacement Family History : Alcoholism, cervical cancer, mental disorder Personal/Social history : past alcohol/tobacco abuse, disabled Allergies Allergy/AdvReac Type Severity Reaction Status Date / Time codeine AdvReac Severe upset Verified 02/05/25 12:24 stomach Home Medications Medication Instructions Recorded Confirmed Type albuterol sulfate 90 mcg/actuation 2 puff inhalation Q4 PRN Wheezing 01/08/19 04/03/25 History aerosol inhaler multivitamin 1 tab PO DAILY 12/29/21 04/03/25 History spironolactone 100 mg tablet 100 mg PO QAM #30 tabs 12/15/22 04/03/25 Rx fluticasone fur. 100 mcg-umeclid 1 inh inhalation QAM 11/07/24 04/03/25 History 62.5 mcg-vilant 25 mcg inhalat.powder (Trelegy Ellipta) docusate sodium 100 mg capsule 100 mg PO BID PRN Constipation 01/10/25 04/03/25 History oxycodone 5 mg tablet 5 mg PO BID PRN Pain, Severe 03/22/25 04/03/25 History pantoprazole 40 mg tablet,delayed 40 mg PO BID #60 tabs 03/27/25 04/03/25 Rx release furosemide 40 mg tablet 40 mg PO QAM 04/03/25 04/03/25 History potassium chloride 20 mEq 20 meq PO Q OTHER DAY 04/03/25 04/03/25 History tablet,extended release(part/cryst) Past Med/Surg History Problem List (Updated 04/04/25 @ 00:07 by Ervin Koenig) Acute dyspnea (Acute) Bleeding esophageal varices (Acute) Hematemesis Acute on chronic back pain Hypomagnesemia (Acute) Fluid overload (Acute) Pedal edema (Acute) Ascites (Acute) SOB (shortness of breath) (Acute) Compression fx, thoracic spine Acute blood loss anemia (Acute) Hepatopulmonary syndrome Chronic bronchitis Acute respiratory failure with hypoxia Fall (Acute) Closed fracture of right hip (Acute) Cirrhosis (Acute) Chronic constipation Tobacco use disorder Decompensated cirrhosis Encounter for pre-operative examination Abdominal pain (Acute) Total bilirubin, elevated (Acute) Abdominal pain Injury of left leg (Acute) Encounter for pre-operative examination Ascites (Acute) Alcoholic cirrhosis (Acute) Melena DVT prophylaxis Portal hypertension COPD (chronic obstructive pulmonary disease) Transaminitis (Acute) Thrombocytopenia (Acute) Cirrhosis of liver (Chronic 11/21/12) Medical History COPD with emphysema Anemia Ascites Pancytopenia Hx of esophageal varices Acute upper gastrointestinal bleeding Hepatitis C treated with harvoni in [facility] pt is now negative Alcohol abuse Per pt none in 2 years Alcoholic cirrhosis Surgical History Hx of pelvic surgery History of tubal ligation Family History Mother Cervical cancer Social History Smoking Status: Former smoker Tobacco Type: Cigarettes Cigarettes Per Day: recently quit; Second Hand Exposure: No; Do You Dip or Chew Tobacco: No; Hx Alcohol Use: No Hx Substance Use: No Preferred Language: [place] Communication Ability: Effective 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: No Beliefs That Will Affect Care: None marital status: Current Living Situation: Spouse Feels Safe at Home: Yes Safety Concerns: Feels Safe At This Time Assistive Devices: Oxygen - at Night, Oxygen - Continuous and Walker Review of Systems Review of Systems: As per HPI, all other systems reviewed and negative Physical Exam Physical Exam: GENERAL: Slightly uncomfortable, pleasant, no respiratory distress SKIN: Pallor, warm HEENT: Pale palpebral conjunctivae, no ptosis, moist buccal mucosa NECK : Supple, no tenderness CHEST : Decreased breath sounds, no tenderness HEART : RRR, no obvious murmurs ABDOMEN: Marked distention, central abdominal tenderness EXTREMITIES : Minimal LE swelling without tenderness, palpable pulses, no other conspicuous deformities noted NEUROLOGIC : Coherent, no facial asymmetry, no other gross focality Results & Data Results & Data Vital Signs (Past 12 Hours) Vital Signs Temp Pulse Pulse Resp BP BP Pulse Ox 04/03/25 18:55 91 H 18 117/77 98 04/03/25 18:19 91 H 04/03/25 18:13 84 20 98 04/03/25 18:08 98 04/03/25 18:08 36.7 C 101 H 30 H 110/62 95 O2 Del Method O2 Flow Rate 04/03/25 18:55 Nasal Cannula 2 04/03/25 18:19 04/03/25 18:13 Nasal Cannula 2 04/03/25 18:08 Nasal Cannula 04/03/25 18:08 Nasal Cannula 4 Laboratory Results Laboratory Results WBC 9.88 K/ul (4.8-10.8) 04/03/25 18:26 RBC 3.20 M/uL (4.20-5.40) L 04/03/25 18:26 Hgb 9.7 g/dl (12.0-16.0) L 04/03/25 18: Hct 30.0 % (37.0-47.0) L 04/03/25 18: MCV 93.8 fL (80.0-100.0) 04/03/25 18:26 MCH 30.3 pg (25.0-34.0) 04/03/25 18: MCHC 32.3 g/dL (32.0-36.0) 04/03/25 18: RDW Std Deviation 65.9 fL (36.4-46.3) H 04/03/25 18: RDW Coeff of Radha 20.0 % (11.5-14.5) H 04/03/25 18: Plt Count 136 K/uL (130-400) 04/03/25 18: MPV 11.1 fL (9.4-12.4) 04/03/25 18: Immature Gran % (Auto) 1.3 % 04/03/25 18: Neut % (Auto) 61.7 % 04/03/25 18:26 Lymph % (Auto) 8.7 % 04/03/25 18:26 [place] % (Auto) 23.0 % 04/03/25 18:26 Eos % (Auto) 2.9 % 04/03/25 18: Baso % (Auto) 2.4 % 04/03/25 18:26 Neut # (Auto) 6.09 K/uL (1.40-6.50) 04/03/25 18:26 Lymph # (Auto) 0.86 K/uL (1.20-3.40) L 04/03/25 18:26 [place] # (Auto) 2.27 K/uL (0.11-0.59) H 04/03/25 18:26 Eos # (Auto) 0.29 K/uL (0.00-0.50) 04/03/25 18: Baso # (Auto) 0.24 K/uL (0.00-0.20) H 04/03/25 18:26 Immature Gran # (Auto) 0.13 K/uL (0.01-0.20) 04/03/25 18: PT 13.0 Seconds (9.0-12.0) H 04/03/25 18: INR 1.2 (0.9-1.1) H 04/03/25 18: VBG pH 7.45 (7.36-7.41) H 04/03/25 18: VBG pCO2 36 mmHg (38-50) L 04/03/25 18: VBG pO2 33 mmHg 04/03/25 18: VBG HCO3 25 mmol/L 04/03/25 18: VBG O2 Saturation < 60.0 % 04/03/25 18: VBG Base Excess 1.3 mEq/L 04/03/25 18: Sodium 137 mmol/L (136-145) 04/03/25 18: Potassium 3.2 mmol/L (3.5-5.1) L 04/03/25 18: Chloride 105 mmol/L (98-107) 04/03/25 18: Carbon Dioxide 24 mmol/L (21-32) 04/03/25 18: Anion Gap 8 (3-11) 04/03/25 18: BUN 8 mg/dl (6-23) 04/03/25 18: Creatinine 0.59 mg/dl (0.6-1.2) L 04/03/25 18: Est Cr Clr Drug Dosing Not Reportable 04/03/25 18: eGFR 103.11 04/03/25 18: BUN/Creatinine Ratio 13.6 (10-20) 04/03/25 18: Glucose 93 mg/dl (70-99(Fasting)) 04/03/25 18: Calcium 8.7 mg/dl (8.6-10.3) 04/03/25 18: Total Bilirubin 2.1 mg/dl (0.2-1.0) H 04/03/25 18: AST 35 U/L (13-39) 04/03/25 18: ALT 18 U/L (7-52) 04/03/25 18: Alkaline Phosphatase 129 U/L (34-104) H 04/03/25 18:26 B-Natriuretic Peptide 58 pg/ml (0-100) 04/03/25 18: Total Protein 6.7 gm/dl (6.0-8.3) 04/03/25 18:26 Albumin 3.5 gm/dl (3.4-5.0) 04/03/25 18:26 Globulin 3.2 gm/dl (2.5-4.0) 04/03/25 18:26 Albumin/Globulin Ratio 1.1 (0.9-2) 04/03/25 18:26 Abdominal ultrasound: [id number] amount of ascites throughout the abdomen and pelvis, similar to previous. Bilateral LE venous Dopplers Negative bilateral lower extremity duplex venous ultrasound. No evidence of DVT. Diagnostic Findings Rate 90, NSR, normal axis, no ischemiaEKG as per my interpretation :
[2025-04-03 19:49] LABS: Magnesium 1.7 mg/dl (1.7-2.4)
--- NOTE | 2025-04-03 19:56 | XRay Report ---
EXAM: Portable AP chest radiograph TECHNIQUE: AP portable radiograph of the chest was obtained. INDICATION: Shortness of breath Comparison: Chest radiograph January 22, 2025 FINDINGS: LINES and TUBES: None CARDIOVASCULAR: Cardiac silhouette is stable and mildly in size. LUNGS/PLEURA: Mild pulmonary vascular congestion and chronic interstitial lung changes are similar to the previous. No focal consolidation is identified with interval clearing of previously present mid to lower lung patchy infiltrates. No significant pleural fluid. No discernible pneumothorax. OSSEOUS/OTHER: No displaced acute osseous process identified. IMPRESSION: Mild congestive changes of the cardiovascular system that are similar to the previous radiograph. No focal consolidation is identified with interval clearing of previously present mid to lower lung patchy infiltrates. Electronically signed by Nile lFores 04-03-2025 7:55 PM
[2025-04-03] MEDS ORDERED: PROMETHAZINE 6.25 MG/50.25 ML BAG IV PRN (20:18)
[2025-04-03] MEDS ORDERED: ACETAMINOPHEN 500 MG TAB PO PRN (20:18)
[2025-04-03] MEDS ORDERED: DOCUSATE SODIUM 100 MG CAP PO PRN (20:19)
[2025-04-03] MEDS: POTASSIUM CHLORIDE PWD 20 MEQ PACK PO STA (20:39)
[2025-04-03 23:12] LABS: Appearance Urine Clear (Clear); Bacteria Urine Automated None Seen (None Seen); Cast Urine Automated 0-2 /lpf (0-2); Glucose Urine UA Negative (Negative); RBC Urine Automated 0-2 /hpf (0-2); WBC Urine Automated 0-5 /hpf (0-5)
[2025-04-03 23:14] LABS: Chlamydia pneumoniae PCR Not Detected (NotDetected); Coronavirus 229E PCR Not Detected (NotDetected); Coronavirus CoV-2 (COVID19)PCR Not Detected (NotDetected); Coronavirus HKU1 PCR Not Detected (NotDetected); Coronavirus NL63 PCR Not Detected (NotDetected); Coronavirus OC43PCR Not Detected (NotDetected); Human Metapneumovirus PCR Not Detected (NotDetected); Parainfluenza Virus 1 PCR Not Detected (NotDetected); Parainfluenza Virus 2 PCR Not Detected (NotDetected); Parainfluenza Virus 3 PCR Not Detected (NotDetected); Parainfluenza Virus 4 PCR Not Detected (NotDetected); Respiratory Syncytial VirusPCR Not Detected (NotDetected); Rhinovirus/Enterovirus PCR Not Detected (NotDetected)
--- NOTE | 2025-04-03 23:45 | Ultrasound Report ---
Exam(s): US VENOUS BILATERAL LOWER EXTREMITIES EXAM: US Duplex Bilateral Lower Extremities Veins CLINICAL HISTORY: Reason for exam: leg swelling. TECHNIQUE: Real-time duplex ultrasound scan of the bilateral lower extremity veins integrating B-mode two-dimensional vascular structure, Doppler spectral analysis, color flow Doppler imaging and compression. COMPARISON: No relevant prior studies available. FINDINGS: Right deep veins: Unremarkable. No DVT in the right common femoral, femoral, proximal deep femoral or popliteal veins. The veins demonstrate normal color flow, are normally compressible, with normal phasic flow and/or augmentation response. Right superficial veins: Unremarkable. No thrombus in the visualized right great saphenous vein. Left deep veins: Unremarkable. No DVT in the left common femoral, femoral, proximal deep femoral or popliteal veins. The veins demonstrate normal color flow, are normally compressible, with normal phasic flow and/or augmentation response. Left superficial veins: Unremarkable. No thrombus in the visualized left great saphenous vein. Soft tissues: No acute findings. No popliteal cyst. IMPRESSION: Negative bilateral lower extremity duplex venous ultrasound. No evidence of DVT. Electronically signed by: Tay Soliz MD 04/03/25 23:43 PM
--- NOTE | 2025-04-03 23:51 | Ultrasound Report ---
Exam(s): US ABDOMEN LIMITED EXAM: US Abdomen Limited CLINICAL HISTORY: Reason for exam: abd distension. TECHNIQUE: Real-time ultrasound of the abdomen with image documentation. COMPARISON: 01/22/2025 FINDINGS: Free fluid: [id number] amount of ascites throughout the abdomen and pelvis, similar to previous. The largest fluid pocket measures 4-5 cm. IMPRESSION: [id number] amount of ascites throughout the abdomen and pelvis, similar to previous. Electronically signed by: Tay Soliz MD 04/03/25 23:50 PM
[2025-04-04] MEDS: FUROSEMIDE 40 MG/4 ML VIAL IV ONE (00:36)
[2025-04-04] MEDS: cefTRIAXone SODIUM 2,000 MG/50 ML BAG IV SCH (00:40)
[2025-04-04] MEDS: ALBUMIN 25% 25 GM/100 ML VIAL IV SCH (01:12)
[2025-04-04 04:53] LABS: Hematocrit (blood only) 25.4 % (37.0-47.0); Hemoglobin 8.2 g/dl (12.0-16.0); Immature Granulocytes # (auto) 0.07 K/uL (0.01-0.20); Immature Granulocytes % (auto) 1.0 %; Mean Corpuscular Hemoglobin 30.4 pg (25.0-34.0); Mean Corpuscular Volume 94.1 fL (80.0-100.0); Platelet Count 90 K/uL (130-400); RDW Standard Deviation 64.5 fL (36.4-46.3); Red Blood Count 2.70 M/uL (4.20-5.40); White Blood Count 6.68 K/ul (4.8-10.8)
[2025-04-04 05:07] LABS: Alanine Aminotransferase 14 U/L (7-52); Albumin Globulin Ratio 1.3 (0.9-2); Alkaline Phosphatase 93 U/L (34-104); Anion Gap 8 (3-11); Bilirubin,Total 1.9 mg/dl (0.2-1.0); Blood Urea Nitrogen 7 mg/dl (6-23); Calcium 8.4 mg/dl (8.6-10.3); Carbon Dioxide 25 mmol/L (21-32); Chloride 105 mmol/L (98-107); Globulin 2.5 gm/dl (2.5-4.0); Glucose 81 mg/dl (70-99(Fasting)); Potassium 3.6 mmol/L (3.5-5.1); Sodium 138 mmol/L (136-145); Total Protein 5.7 gm/dl (6.0-8.3)
[2025-04-04] MEDS: FLUTICASONE FUROATE 100MCG 14 PUFFS/INHALER INH SCH (08:20)
--- NOTE | 2025-04-04 08:20 | Gastrointestinal Consultation ---
Date of Consultation April 04, 2025 Assessment & Plan (1) Cirrhosis: 59 year old female with history of HCV (treated w Harvoni, SVR attained), ETOH cirrhosis, w Grade II esophageal varices s/p banding, portal HTN, ascites, COPD, chronic hypoxic respiratory failure, anemia, anxiety/mood disorder, alcohol abuse, tobacco abuse admitted through the ED for evaluation of SOB Ascites/SOB - She is en-route to diagnostic/therapeutic paracentesis - Follow fluid studies, cell count and culture - Recommend imaging to eval portal vein Cirrhosis Management - Continue Lasix 40 mg once daily - If fluid studies w/o SBP recommend dose titration this admission - Continue Aldactone 100 mg once daily - If fluid studies w/o SBP recommend dose titration this admission - Daily weights - Low NA diet, less than 2g sodium containing products daily - MELD labs every 6 months - ABD imaging w/ AFP every 6 months - EGD every 1-2 years - No ETOH - No NSAIDs - Avoid hepatotoxin - Low NA diet, less than 2G daily - Less than 2G acetaminophen containing products daily - Need OP follow up with [facility] and [facility] I spent a total of 55 minutes on the date of service in review of patient's record, and previously obtained information in person and appropriate medical visit, discussion and education of plan, with patient and/or caregiver, placing orders for tests/referral/procedures as medically necessary and documentation of pertinent clinical information in patient's medical records for their visit today. Supervising Physician Co-Signing Physician Notes Abdominal ascites recent tap with reaccumulation fairly rapidly. 3 tapped on this admission. Fluid analysis consistent with transudate. No evidence of SBP. Total WBCs 294 6% neutrophils. Patient had 3 L removed on her first tap and 2.7 L today which is not a large amount. She takes her diuretics 40 of Lasix and 100 Aldactone and states she sticks to a low-salt diet. At this point I think most appropriately to increase her Aldactone to 200. Higher dose of Lasix may be associated with increased risk of prerenal azotemia and hypokalemia. No confusion encephalopathy or evidence of sulma gastrointestinal bleeding History of Present Illness Reason for Consultation: ascites, decompensated cirrhosis Requesting Physician: Delta Wiley MD Attending Physician: Delta Wiley MD History of Present Illness 59 year old female with history of HCV (treated w Harvoni, SVR attained), ETOH cirrhosis, w Grade II esophageal varices s/p banding, portal HTN, ascites, COPD, chronic hypoxic respiratory failure, anemia, anxiety/mood disorder, alcohol abuse, tobacco abuse admitted through the ED for evaluation of SOB - GI asked to evaluate for evaluation of cirrhosis. She notes she had a paracentesis 03/29/25 and shortly after started to reaccumulate fluid. She notes slowly after this she developed generalized abd pain and difficultly taking a deep breath. She feels her breathing is restrictive by her ascites. She denies nausea/vomiting. No black or bloody stools. No fever, chills, CP. SOB is acutely worse this admission. Respiratory PCR is negative on 04/03 Diagnosis: HCV/ETOH last ETOH use was September 2022 Decompensations: Varices: hx grade 2 s/p banding BB contraindicated per pulmonary Portal HTN: severe BB contraindicated per pulmonary Ascites/Edema: Lasix 40 mg On Spironolactone 100mg daily HE: none Screenings: MELD: 11 HCC: July 2025 Varices: banded in 2021, 2024 Immunizations: unknown Paracentesis 03/29/25: 3L off Paracentesis 03/22/25: 1L off CTAP 2024: Cirrhosis and stigmata of portal hypertension including [id number] volume ascites. EGD 2024: Grade II esophageal varices. Banded. - Portal hypertensive gastropathy. - Hematin (altered blood/uaagqy-dqarqx-cnyj material) in the gastric fundus and in the gastric body. - Normal examined duodenum. - No specimens collected. EGD 2024: Fluid was found in the lower third of the esophagus. Fluid aspiration was performed. - A large amount of food (residue) was found in the gastric body and in the gastric fundus. - The examined duodenum was normal. EGD 2024: On entering esophagus there appeared to be fluid-filled brown liquid. Suctioning scope was withdrawn patient was placed in the left lateral decubitus position with oropharyngeal suctioning. Patient did spit up small amount of bile. Continued suctioning showed no further fluid in the posterior oropharynx. No definite aspiration. Anesthesia present. And will be to rescope with airway protection in the OR. In this patient with melena history of varices potential gastric outlet obstruction with further endoscopy with airway protection. - No specimens collected. - Possible gastric outlet obstruction. Fluid-filled esophagus. Rescope in OR EGD 2021: Grade II esophageal varices. Banded. - Small hiatal hernia. - Portal hypertensive gastropathy. - Normal duodenal bulb and second portion of the duodenum. - No specimens collected. EGD 2020: Grade II esophageal varices with no bleeding and no stigmata of recent bleeding. - Portal hypertensive gastropathy. - Normal examined duodenum. - No specimens collected. EUS 2012: fatty liver, gallbladder wall 4mm, ? Alvarado's esophagus, Grade I esophageal varices EGD/Colonoscopy 2016: Grade I varices, portal HTN; diverticulosis, int hemorrhoids. EGD 2019: showed hiatal hernia, grade 2 varices w/o stigmata of bleeding, severe portal gastropathy Allergies Allergy/AdvReac Type Severity Reaction Status Date / Time codeine AdvReac Severe upset Verified 02/05/25 12:24 stomach Home Medications Medication Instructions Recorded Confirmed Type albuterol sulfate 90 mcg/actuation 2 puff inhalation Q4 PRN Wheezing 01/08/19 04/03/25 History aerosol inhaler multivitamin 1 tab PO DAILY 12/29/21 04/03/25 History spironolactone 100 mg tablet 100 mg PO QAM #30 tabs 12/15/22 04/03/25 Rx fluticasone fur. 100 mcg-umeclid 1 inh inhalation QAM 11/07/24 04/03/25 History 62.5 mcg-vilant 25 mcg inhalat.powder (Trelegy Ellipta) docusate sodium 100 mg capsule 100 mg PO BID PRN Constipation 01/10/25 04/03/25 History oxycodone 5 mg tablet 5 mg PO BID PRN Pain, Severe 03/22/25 04/03/25 History pantoprazole 40 mg tablet,delayed 40 mg PO BID #60 tabs 03/27/25 04/03/25 Rx release furosemide 40 mg tablet 40 mg PO QAM 04/03/25 04/03/25 History potassium chloride 20 mEq 20 meq PO Q OTHER DAY 04/03/25 04/03/25 History tablet,extended release(part/cryst) Patient History Medical History COPD with emphysema Anemia Ascites Pancytopenia Hx of esophageal varices Acute upper gastrointestinal bleeding Hepatitis C treated with yash in [facility] pt is now negative Alcohol abuse Per pt none in 2 years Alcoholic cirrhosis Surgical History Hx of pelvic surgery History of tubal ligation Family History Mother Cervical cancer Social History Smoking Status: Former smoker Tobacco Type: Cigarettes Cigarettes Per Day: recently quit; Second Hand Exposure: No; Do You Dip or Chew Tobacco: No; Hx Alcohol Use: No Hx Substance Use: No Preferred Language: Niuean Communication Ability: Effective Material Control Analyst Required: No Beliefs That Will Affect Care: None marital status: Current Living Situation: Spouse Feels Safe at Home: Yes Safety Concerns: Feels Safe At This Time Assistive Devices: Oxygen - Continuous and Walker Review of Systems Review of Systems: All other findings negative except as noted in HPI. Physical Exam Constitutional: WD/WN, vitals as above She began to get tearful while discussing her condition. Respiratory: decreased breath sounds at bases Cardiovascular: Rate/Rhythm: regular rate and regular rhythm trace lower extremity edema Gastrointestinal (Abdomen): + distention + discomfort w/ palpation Skin: no rashes, warm and dry Results & Data Vital Signs (Past 12 Hours) Vital Signs Pulse Pulse Resp BP Pulse Ox Pulse Ox O2 Del Method 04/04/25 06:03 83 18 95/56 L 100 Nasal Cannula 04/04/25 03:22 81 18 117/54 L 99 Nasal Cannula 04/04/25 00:43 75 20 110/70 97 Nasal Cannula 04/03/25 23:44 83 04/03/25 21:29 78 14 123/84 97 Nasal Cannula 04/03/25 21:29 97 04/03/25 20:24 Nasal Cannula 04/03/25 20:24 88 20 106/69 97 Nasal Cannula O2 Del Method O2 Flow Rate O2 Flow Rate 04/04/25 06:03 2 04/04/25 03:22 2 04/04/25 00:43 2 04/03/25 23:44 04/03/25 21:29 2 04/03/25 21:29 Room Air 2 04/03/25 20:24 2 04/03/25 20:24 2 Laboratory Results 04/04/25 04/03/25 04/03/25 Range/Units 04:09 Unknown 22:40 WBC 6.68 (4.8-10.8) K/ul RBC 2.70 L (4.20-5.40) M/uL Hgb 8.2 L (12.0-16.0) g/dl Hct 25.4 L (37.0-47.0) % MCV 94.1 (80.0-100.0) fL MCH 30.4 (25.0-34.0) pg MCHC 32.3 (32.0-36.0) g/dL RDW Std Deviation 64.5 H (36.4-46.3) fL RDW Coeff of Radha 19.6 H (11.5-14.5) % Plt Count 90 L (130-400) K/uL MPV 11.3 (9.4-12.4) fL Immature Gran % (Auto) 1.0 % Neut % (Auto) 54.4 % Lymph % (Auto) 9.9 % [place] % (Auto) 26.2 % Eos % (Auto) 5.5 % Baso % (Auto) 3.0 % Neut # (Auto) 3.63 (1.40-6.50) K/uL Lymph # (Auto) 0.66 L (1.20-3.40) K/uL [place] # (Auto) 1.75 H (0.11-0.59) K/uL Eos # (Auto) 0.37 (0.00-0.50) K/uL Baso # (Auto) 0.20 (0.00-0.20) K/uL Immature Gran # (Auto) 0.07 (0.01-0.20) K/uL PT (9.0-12.0) Seconds INR (0.9-1.1) VBG pH (7.36-7.41) VBG pCO2 (38-50) mmHg VBG pO2 mmHg VBG HCO3 mmol/L VBG O2 Saturation % VBG Base Excess mEq/L Sodium 138 (136-145) mmol/L Potassium 3.6 (3.5-5.1) mmol/L Chloride 105 (98-107) mmol/L Carbon Dioxide 25 (21-32) mmol/L Anion Gap 8 (3-11) BUN 7 (6-23) mg/dl Creatinine 0.54 L (0.6-1.2) mg/dl Est Cr Clr Drug Dosing Not Reportable eGFR 105.33 BUN/Creatinine Ratio 13.0 (10-20) Glucose 81 (70-99(Fasting)) mg/dl Calcium 8.4 L (8.6-10.3) mg/dl Magnesium (1.7-2.4) mg/dl Total Bilirubin 1.9 H (0.2-1.0) mg/dl AST 27 (13-39) U/L ALT 14 (7-52) U/L Alkaline Phosphatase 93 (34-104) U/L B-Natriuretic Peptide (0-100) pg/ml Total Protein 5.7 L (6.0-8.3) gm/dl Albumin 3.2 L (3.4-5.0) gm/dl Globulin 2.5 (2.5-4.0) gm/dl Albumin/Globulin Ratio 1.3 (0.9-2) Urine Color Yellow Urine Appearance Clear (Clear) Urine pH 6.5 (4.5-7.5) Ur Specific [place] 1.011 (1.000-1.030) Urine Protein Negative (Negative) Urine Glucose (UA) Negative (Negative) Urine Ketones Negative (Negative) Urine Blood Negative (Negative) Urine Nitrite Negative (Negative) Urine Bilirubin Negative (Negative) Urine Urobilinogen Negative (Negative) Ur Leukocyte Esterase Trace H (Negative) Urine WBC (Auto) 0-5 (0-5) /hpf Urine RBC (Auto) 0-2 (0-2) /hpf U Hyaline Cast (Auto) 0-2 (0-2) /lpf U Epithel Cells (Auto) 6-10 H (0-2) /hpf Urine Bacteria (Auto) None Seen (None Seen) Urine Comment Nasal Screen MRSA (PCR) Negative (Negative) Adenovirus (PCR) (NotDetected) B. pertussis DNA (PCR) (NotDetected) B.parapertussis DNA PCR (NotDetected) C. pneumoniae DNA (PCR) (NotDetected) Coronavirus OC43 (PCR) (NotDetected) Coronavirus HKU1 (PCR) (NotDetected) Coronavirus 229E (PCR) (NotDetected) SARS-CoV-2 (PCR) (NotDetected) Coronavirus NL63 (PCR) (NotDetected) Human Metapneumovir PCR (NotDetected) Influenza Type A (PCR) (NotDetected) Influenza Type B (PCR) (NotDetected) M. pneumoniae (PCR) (NotDetected) Parainfluenza 1 (PCR) (NotDetected) Parainfluenza 2 (PCR) (NotDetected) Parainfluenza 3 (PCR) (NotDetected) Parainfluenza 4 (PCR) (NotDetected) RSV (PCR) (NotDetected) Entero/Rhino (PCR) (NotDetected) 04/03/25 04/03/25 Range/Units 22:10 18:26 WBC 9.88 (4.8-10.8) K/ul RBC 3.20 L (4.20-5.40) M/uL Hgb 9.7 L (12.0-16.0) g/dl Hct 30.0 L (37.0-47.0) % MCV 93.8 (80.0-100.0) fL MCH 30.3 (25.0-34.0) pg MCHC 32.3 (32.0-36.0) g/dL RDW Std Deviation 65.9 H (36.4-46.3) fL RDW Coeff of Radha 20.0 H (11.5-14.5) % Plt Count 136 (130-400) K/uL MPV 11.1 (9.4-12.4) fL Immature Gran % (Auto) 1.3 % Neut % (Auto) 61.7 % Lymph % (Auto) 8.7 % [place] % (Auto) 23.0 % Eos % (Auto) 2.9 % Baso % (Auto) 2.4 % Neut # (Auto) 6.09 (1.40-6.50) K/uL Lymph # (Auto) 0.86 L (1.20-3.40) K/uL [place] # (Auto) 2.27 H (0.11-0.59) K/uL Eos # (Auto) 0.29 (0.00-0.50) K/uL Baso # (Auto) 0.24 H (0.00-0.20) K/uL Immature Gran # (Auto) 0.13 (0.01-0.20) K/uL PT 13.0 H (9.0-12.0) Seconds INR 1.2 H (0.9-1.1) VBG pH 7.45 H (7.36-7.41) VBG pCO2 36 L (38-50) mmHg VBG pO2 33 mmHg VBG HCO3 25 mmol/L VBG O2 Saturation < 60.0 % VBG Base Excess 1.3 mEq/L Sodium 137 (136-145) mmol/L Potassium 3.2 L (3.5-5.1) mmol/L Chloride 105 (98-107) mmol/L Carbon Dioxide 24 (21-32) mmol/L Anion Gap 8 (3-11) BUN 8 (6-23) mg/dl Creatinine 0.59 L (0.6-1.2) mg/dl Est Cr Clr Drug Dosing Not Reportable eGFR 103.11 BUN/Creatinine Ratio 13.6 (10-20) Glucose 93 (70-99(Fasting)) mg/dl Calcium 8.7 (8.6-10.3) mg/dl Magnesium 1.7 (1.7-2.4) mg/dl Total Bilirubin 2.1 H (0.2-1.0) mg/dl AST 35 (13-39) U/L ALT 18 (7-52) U/L Alkaline Phosphatase 129 H (34-104) U/L B-Natriuretic Peptide 58 (0-100) pg/ml Total Protein 6.7 (6.0-8.3) gm/dl Albumin 3.5 (3.4-5.0) gm/dl Globulin 3.2 (2.5-4.0) gm/dl Albumin/Globulin Ratio 1.1 (0.9-2) Urine Color Urine Appearance (Clear) Urine pH (4.5-7.5) Ur Specific [place] (1.000-1.030) Urine Protein (Negative) Urine Glucose (UA) (Negative) Urine Ketones (Negative) Urine Blood (Negative) Urine Nitrite (Negative) Urine Bilirubin (Negative) Urine Urobilinogen (Negative) Ur Leukocyte Esterase (Negative) Urine WBC (Auto) (0-5) /hpf Urine RBC (Auto) (0-2) /hpf U Hyaline Cast (Auto) (0-2) /lpf U Epithel Cells (Auto) (0-2) /hpf Urine Bacteria (Auto) (None Seen) Urine Comment Nasal Screen MRSA (PCR) (Negative) Adenovirus (PCR) Not Detected (NotDetected) B. pertussis DNA (PCR) Not Detected (NotDetected) B.parapertussis DNA PCR Not Detected (NotDetected) C. pneumoniae DNA (PCR) Not Detected (NotDetected) Coronavirus OC43 (PCR) Not Detected (NotDetected) Coronavirus HKU1 (PCR) Not Detected (NotDetected) Coronavirus 229E (PCR) Not Detected (NotDetected) SARS-CoV-2 (PCR) Not Detected (NotDetected) Coronavirus NL63 (PCR) Not Detected (NotDetected) Human Metapneumovir PCR Not Detected (NotDetected) Influenza Type A (PCR) Not Detected (NotDetected) Influenza Type B (PCR) Not Detected (NotDetected) M. pneumoniae (PCR) Not Detected (NotDetected) Parainfluenza 1 (PCR) Not Detected (NotDetected) Parainfluenza 2 (PCR) Not Detected (NotDetected) Parainfluenza 3 (PCR) Not Detected (NotDetected) Parainfluenza 4 (PCR) Not Detected (NotDetected) RSV (PCR) Not Detected (NotDetected) Entero/Rhino (PCR) Not Detected (NotDetected) PG Care Time/CCT Total # of Minutes Spent Total Time Spent with Patient: Total time spent is greater than 50% in coordination of care (as documented) at patient's floor/unit and/or counseling patient: Coding Level of Care Code 66069 INT INP/OBS CARE 2MIN Diagnoses Cirrhosis K70.31 Ascites presence: with ascites Hepatic cirrhosis type: alcoholic cirrhosis (1) Cirrhosis Ascites presence: with ascites Hepatic cirrhosis type: alcoholic cirrhosis Qualified Code(s): K70.31 - Alcoholic cirrhosis of liver with ascites
[2025-04-04] MEDS: MULTIVITAMIN TAB PO SCH (08:21)
[2025-04-04] MEDS: UMECLIDINIUM/VILANTEROL 62.5/25MCG 7 PUFFS/INHALER INH SCH (08:22)
[2025-04-04] MEDS: POTASSIUM CHLORIDE CRTAB 20 MEQ TABCR PO SCH (08:22)
[2025-04-04] MEDS ORDERED: LINEZOLID 600 MG TAB PO SCH (09:00)
--- NOTE | 2025-04-04 09:22 | Hospitalist Progress Note ---
Date of Service April 04, 2025 Assessment & Plan (1) SOB (shortness of breath): Plan: SOB secondary to painful ascites Decompensated cirrhosis Possible SBP No sepsis on admission Admitted to med/tele Ceftriaxone, albumin for possible SBP Diagnostic and therapeutic paracentesis ordered on admission - pt underwent paracentesis and now feels much improved, she denies any shortness of breath or any abdominal pain, says she feels so much better, previous paracentesis on 03/29 3L of fluid, current 2.7L fluid drained Diuretic Rx GI consult re: recurrent ascites, decompensated cirrhosis PT OT eval COPD, chronic cough symptoms HCV status post Rx History esophageal varices anemia, hemoglobin at baseline Mood disorder, stable past alcohol/tobacco abuse Recurrent admissions, rule out functional disability DVT prophylaxis. SCDs re: recent GI bleed Full code Admission and Anticipated Discharge Date Admission Date: April 04, 2025 Subjective Pt seen in follow up of ascites, shortness of breath Pt says she had abdominal discomfort, she "filled up with fluid" right after her last paracentesis on 03/29/2025 Currently s/p paracentesis and she reports feeling so much better. No troubles breathing and no abdominal pain. Denies fever, chills, chest pain, denies n/v/d, denies any dysuria. treated for uti during last admission as well Review of Systems Review of Systems: All systems reviewed & are unremarkable except as noted in Subjective Physical Exam Physical Exam: GENERAL: thin, frail F in NAD HEENT: NC/AT. EOMI,anicteric sclearae NECK : Supple, no tenderness CHEST : Decreased breath sounds, no wheezing HEART : RRR, no obvious murmurs ABDOMEN: soft, nontender (s/p paracentesis) EXTREMITIES : no LE edema, moves extremities NEUROLOGIC : awake, alert, speech fluent, answers appropriately, no facial asymmetry, moves extremities SKIN: warm, dry Results & Data Results & Data Vital Signs (Past 12 Hours) Vital Signs Pulse Pulse Resp BP Pulse Ox Pulse Ox O2 Del Method 04/04/25 08:39 80 20 104/64 94 Nasal Cannula 04/04/25 08:33 82 04/04/25 06:03 83 18 95/56 L 100 Nasal Cannula 04/04/25 03:22 81 18 117/54 L 99 Nasal Cannula 04/04/25 00:43 75 20 110/70 97 Nasal Cannula 04/03/25 23:44 83 04/03/25 21:29 78 14 123/84 97 Nasal Cannula 04/03/25 21:29 97 O2 Del Method O2 Flow Rate O2 Flow Rate 04/04/25 08:39 2 04/04/25 08:33 04/04/25 06:03 2 04/04/25 03:22 2 04/04/25 00:43 2 04/03/25 23:44 04/03/25 21:29 2 04/03/25 21:29 Room Air 2 Laboratory Results 04/04/25 04/03/25 04/03/25 Range/Units 04:09 Unknown 22:40 WBC 6.68 (4.8-10.8) K/ul RBC 2.70 L (4.20-5.40) M/uL Hgb 8.2 L (12.0-16.0) g/dl Hct 25.4 L (37.0-47.0) % MCV 94.1 (80.0-100.0) fL MCH 30.4 (25.0-34.0) pg MCHC 32.3 (32.0-36.0) g/dL RDW Std Deviation 64.5 H (36.4-46.3) fL RDW Coeff of Radha 19.6 H (11.5-14.5) % Plt Count 90 L (130-400) K/uL MPV 11.3 (9.4-12.4) fL Immature Gran % (Auto) 1.0 % Neut % (Auto) 54.4 % Lymph % (Auto) 9.9 % [place] % (Auto) 26.2 % Eos % (Auto) 5.5 % Baso % (Auto) 3.0 % Neut # (Auto) 3.63 (1.40-6.50) K/uL Lymph # (Auto) 0.66 L (1.20-3.40) K/uL [place] # (Auto) 1.75 H (0.11-0.59) K/uL Eos # (Auto) 0.37 (0.00-0.50) K/uL Baso # (Auto) 0.20 (0.00-0.20) K/uL Immature Gran # (Auto) 0.07 (0.01-0.20) K/uL PT (9.0-12.0) Seconds INR (0.9-1.1) VBG pH (7.36-7.41) VBG pCO2 (38-50) mmHg VBG pO2 mmHg VBG HCO3 mmol/L VBG O2 Saturation % VBG Base Excess mEq/L Sodium 138 (136-145) mmol/L Potassium 3.6 (3.5-5.1) mmol/L Chloride 105 (98-107) mmol/L Carbon Dioxide 25 (21-32) mmol/L Anion Gap 8 (3-11) BUN 7 (6-23) mg/dl Creatinine 0.54 L (0.6-1.2) mg/dl Est Cr Clr Drug Dosing Not Reportable eGFR 105.33 BUN/Creatinine Ratio 13.0 (10-20) Glucose 81 (70-99(Fasting)) mg/dl Calcium 8.4 L (8.6-10.3) mg/dl Magnesium (1.7-2.4) mg/dl Total Bilirubin 1.9 H (0.2-1.0) mg/dl AST 27 (13-39) U/L ALT 14 (7-52) U/L Alkaline Phosphatase 93 (34-104) U/L B-Natriuretic Peptide (0-100) pg/ml Total Protein 5.7 L (6.0-8.3) gm/dl Albumin 3.2 L (3.4-5.0) gm/dl Globulin 2.5 (2.5-4.0) gm/dl Albumin/Globulin Ratio 1.3 (0.9-2) Urine Color Yellow Urine Appearance Clear (Clear) Urine pH 6.5 (4.5-7.5) Ur Specific [place] 1.011 (1.000-1.030) Urine Protein Negative (Negative) Urine Glucose (UA) Negative (Negative) Urine Ketones Negative (Negative) Urine Blood Negative (Negative) Urine Nitrite Negative (Negative) Urine Bilirubin Negative (Negative) Urine Urobilinogen Negative (Negative) Ur Leukocyte Esterase Trace H (Negative) Urine WBC (Auto) 0-5 (0-5) /hpf Urine RBC (Auto) 0-2 (0-2) /hpf U Hyaline Cast (Auto) 0-2 (0-2) /lpf U Epithel Cells (Auto) 6-10 H (0-2) /hpf Urine Bacteria (Auto) None Seen (None Seen) Urine Comment Nasal Screen MRSA (PCR) Negative (Negative) Adenovirus (PCR) (NotDetected) B. pertussis DNA (PCR) (NotDetected) B.parapertussis DNA PCR (NotDetected) C. pneumoniae DNA (PCR) (NotDetected) Coronavirus OC43 (PCR) (NotDetected) Coronavirus HKU1 (PCR) (NotDetected) Coronavirus 229E (PCR) (NotDetected) SARS-CoV-2 (PCR) (NotDetected) Coronavirus NL63 (PCR) (NotDetected) Human Metapneumovir PCR (NotDetected) Influenza Type A (PCR) (NotDetected) Influenza Type B (PCR) (NotDetected) M. pneumoniae (PCR) (NotDetected) Parainfluenza 1 (PCR) (NotDetected) Parainfluenza 2 (PCR) (NotDetected) Parainfluenza 3 (PCR) (NotDetected) Parainfluenza 4 (PCR) (NotDetected) RSV (PCR) (NotDetected) Entero/Rhino (PCR) (NotDetected) 04/03/25 04/03/25 Range/Units 22:10 18:26 WBC 9.88 (4.8-10.8) K/ul RBC 3.20 L (4.20-5.40) M/uL Hgb 9.7 L (12.0-16.0) g/dl Hct 30.0 L (37.0-47.0) % MCV 93.8 (80.0-100.0) fL MCH 30.3 (25.0-34.0) pg MCHC 32.3 (32.0-36.0) g/dL RDW Std Deviation 65.9 H (36.4-46.3) fL RDW Coeff of Radha 20.0 H (11.5-14.5) % Plt Count 136 (130-400) K/uL MPV 11.1 (9.4-12.4) fL Immature Gran % (Auto) 1.3 % Neut % (Auto) 61.7 % Lymph % (Auto) 8.7 % Sandoval % (Auto) 23.0 % Eos % (Auto) 2.9 % Baso % (Auto) 2.4 % Neut # (Auto) 6.09 (1.40-6.50) K/uL Lymph # (Auto) 0.86 L (1.20-3.40) K/uL [place] # (Auto) 2.27 H (0.11-0.59) K/uL Eos # (Auto) 0.29 (0.00-0.50) K/uL Baso # (Auto) 0.24 H (0.00-0.20) K/uL Immature Gran # (Auto) 0.13 (0.01-0.20) K/uL PT 13.0 H (9.0-12.0) Seconds INR 1.2 H (0.9-1.1) VBG pH 7.45 H (7.36-7.41) VBG pCO2 36 L (38-50) mmHg VBG pO2 33 mmHg VBG HCO3 25 mmol/L VBG O2 Saturation < 60.0 % VBG Base Excess 1.3 mEq/L Sodium 137 (136-145) mmol/L Potassium 3.2 L (3.5-5.1) mmol/L Chloride 105 (98-107) mmol/L Carbon Dioxide 24 (21-32) mmol/L Anion Gap 8 (3-11) BUN 8 (6-23) mg/dl Creatinine 0.59 L (0.6-1.2) mg/dl Est Cr Clr Drug Dosing Not Reportable eGFR 103.11 BUN/Creatinine Ratio 13.6 (10-20) Glucose 93 (70-99(Fasting)) mg/dl Calcium 8.7 (8.6-10.3) mg/dl Magnesium 1.7 (1.7-2.4) mg/dl Total Bilirubin 2.1 H (0.2-1.0) mg/dl AST 35 (13-39) U/L ALT 18 (7-52) U/L Alkaline Phosphatase 129 H (34-104) U/L B-Natriuretic Peptide 58 (0-100) pg/ml Total Protein 6.7 (6.0-8.3) gm/dl Albumin 3.5 (3.4-5.0) gm/dl Globulin 3.2 (2.5-4.0) gm/dl Albumin/Globulin Ratio 1.1 (0.9-2) Urine Color Urine Appearance (Clear) Urine pH (4.5-7.5) Ur Specific [place] (1.000-1.030) Urine Protein (Negative) Urine Glucose (UA) (Negative) Urine Ketones (Negative) Urine Blood (Negative) Urine Nitrite (Negative) Urine Bilirubin (Negative) Urine Urobilinogen (Negative) Ur Leukocyte Esterase (Negative) Urine WBC (Auto) (0-5) /hpf Urine RBC (Auto) (0-2) /hpf U Hyaline Cast (Auto) (0-2) /lpf U Epithel Cells (Auto) (0-2) /hpf Urine Bacteria (Auto) (None Seen) Urine Comment Nasal Screen MRSA (PCR) (Negative) Adenovirus (PCR) Not Detected (NotDetected) B. pertussis DNA (PCR) Not Detected (NotDetected) B.parapertussis DNA PCR Not Detected (NotDetected) C. pneumoniae DNA (PCR) Not Detected (NotDetected) Coronavirus OC43 (PCR) Not Detected (NotDetected) Coronavirus HKU1 (PCR) Not Detected (NotDetected) Coronavirus 229E (PCR) Not Detected (NotDetected) SARS-CoV-2 (PCR) Not Detected (NotDetected) Coronavirus NL63 (PCR) Not Detected (NotDetected) Human Metapneumovir PCR Not Detected (NotDetected) Influenza Type A (PCR) Not Detected (NotDetected) Influenza Type B (PCR) Not Detected (NotDetected) M. pneumoniae (PCR) Not Detected (NotDetected) Parainfluenza 1 (PCR) Not Detected (NotDetected) Parainfluenza 2 (PCR) Not Detected (NotDetected) Parainfluenza 3 (PCR) Not Detected (NotDetected) Parainfluenza 4 (PCR) Not Detected (NotDetected) RSV (PCR) Not Detected (NotDetected) Entero/Rhino (PCR) Not Detected (NotDetected) Medications Administered Current Inpatient Medications Acetaminophen (Acetaminophen 500 Mg Tab) 500 mg PO Q6H PRN PRN Reason: fever/pain Stop: 05/03/25 20:17 Docusate Sodium (Docusate Sodium 100 Mg Cap) 100 mg PO BID PRN PRN Reason: Constipation Stop: 05/03/25 20:18 Fluticasone Furoate (Fluticasone Furoate 100mcg 14 Puffs/Inhaler) 1 puffs INH QAM [facility] Stop: 05/04/25 08:59 Last Admin: 04/04/25 08:20 Dose: 1 puffs Furosemide (Furosemide 40 Mg Tab) 40 mg PO QAM [facility] Stop: 05/04/25 08:59 Hydroxyzine HCl (Hydroxyzine Hcl 10 Mg Tab) 10 mg PO QID PRN PRN Reason: Anxiety Stop: 05/03/25 20:19 Promethazine HCl (Phenergan) 6.25 mg in 50.25 mls @ 201 mls/hr IV Q6H PRN PRN Reason: Nausea And Vomiting Stop: 05/03/25 20:17 Ceftriaxone Sodium (Rocephin) 2,000 mg in 50 mls @ 100 mls/hr IV Q24H [facility] Stop: 04/14/25 00:00 Last Infusion: 04/04/25 01:11 Dose: Infused Albumin Human (Albumin 25%) 25 gm in 100 mls @ 50 mls/hr IV Q8H [facility] Stop: 04/07/25 00:00 Last Infusion: 04/04/25 08:38 Dose: 0 mls/hr Multivitamins (Multivitamin Tab) 1 tab PO DAILY [facility] Stop: 05/04/25 08:59 Last Admin: 04/04/25 08:21 Dose: 1 tab Oxycodone HCl (Oxycodone Hcl Ir 5 Mg Tab (Immediate Release)) 5 mg PO Q4H PRN PRN Reason: Pain Stop: 04/17/25 20:17 Last Admin: 04/04/25 07:40 Dose: 5 mg Pantoprazole Sodium (Pantoprazole 40 Mg Tab) 40 mg PO BID [facility] Stop: 05/03/25 20:59 Last Admin: 04/04/25 08:21 Dose: 40 mg Potassium Chloride (Potassium Chloride Crtab 20 Meq Tabcr) 20 meq PO DAILY [facility] Stop: 05/04/25 08:59 Last Admin: 04/04/25 08:22 Dose: 20 meq Spironolactone (Spironolactone 100 Mg Tab) 100 mg PO QAM [facility] Stop: 05/04/25 08:59 Umeclidinium/Vilanterol (Umeclidinium/Vilanterol 62.5/25mcg 7 Puffs/Inhaler) 1 puffs INH QAM [facility] Stop: 05/04/25 08:59 Last Admin: 04/04/25 08:22 Dose: 1 puffs
[2025-04-04] MEDS: SPIRONOLACTONE 100 MG TAB PO SCH (10:11)
[2025-04-04] MEDS: FUROSEMIDE 40 MG TAB PO SCH (10:11)
--- NOTE | 2025-04-04 10:51 | Electrocardiogram Report ---
Test Reason : Blood Pressure : */* mmHG Vent. Rate : 90 BPM Atrial Rate : 90 BPM P-R Int : 134 ms QRS Dur : 84 ms QT Int : 374 ms P-R-T Axes : 75 4 70 degrees QTcB Int : 457 ms Normal sinus rhythm Normal ECG When compared with ECG of 22-Mar-2025 08:46, Borderline criteria for Inferior infarct are no longer Present Confirmed by Jose Mohamud ([id number]) on 04/04/2025 10:51:32 AM Referred By: REFERRED SELF Confirmed By: Jose Mohamud
[2025-04-04 11:18] LABS: Appearance Peritoneal Fluid Hazy; Color Peritoneal Fluid Yellow; RBC Peritoneal Fluid Auto < 2000 /uL; WBC Peritoneal Fluid Auto 294 /ul (0-300)
[2025-04-04 11:34] LABS: Albumin Peritoneal Fluid < 1.5 gm/dl
[2025-04-04 11:40] LABS: Basophils, Fluid 1 %; Lymphocytes, Fluid 22 %; Mono,Macrophage,Mesothelial 71 %; Neutrophils, Fluid 6 %
--- NOTE | 2025-04-04 13:45 | Ultrasound Report ---
ULTRASOUND-GUIDED PARACENTESIS CLINICAL HISTORY: Ascites PROCEDURE: Procedure and risks were explained. Informed consent was obtained. A final timeout was com pleted. The abdomen was prepped and draped in sterile fashion. 1% lidocaine was utilized for skin ane sthesia. Utilizing ultrasound guidance, a 5 Lao safety centesis catheter was advanced into the left lower q uadrant pocket of ascites. Ultrasound images were obtained. 2.7 L of ascites fluid was removed, with 1 L sent to the lab for analysis. The catheter was removed and Band-Aid applied. The patient tolerate d the procedure well. Vital signs will be monitored postprocedure. IMPRESSION: Ultrasound-guided paracentesis as above. Performed, dictated, and signed by Berny Bales PA-C; to be co-signed by Dr. Sterling Malloy. Electronically signed by: Sterling Malloy M.D. 04/04/2025 4:03 PM
[2025-04-04 22:45] VITALS: RESP 16
[2025-04-05 07:09] VITALS: BP 93/58; PULSE 78; TEMP 97.9; O2SAT 96
[2025-04-05 07:16] LABS: Hematocrit (blood only) 24.0 % (37.0-47.0); Hemoglobin 7.9 g/dl (12.0-16.0); Mean Corpuscular Hemoglobin 31.3 pg (25.0-34.0); Mean Corpuscular Volume 95.2 fL (80.0-100.0); Platelet Count 77 K/uL (130-400); RDW Standard Deviation 64.6 fL (36.4-46.3); Red Blood Count 2.52 M/uL (4.20-5.40); White Blood Count 5.27 K/ul (4.8-10.8)
[2025-04-05 07:34] LABS: Anion Gap 5.0 (3-11); Blood Urea Nitrogen 8.0 mg/dl (6-23); Calcium 8.8 mg/dl (8.6-10.3); Carbon Dioxide 27.0 mmol/L (21-32); Chloride 107.0 mmol/L (98-107); Creatinine Clr Calc Pharmacy 60.0 ml/min; Glucose 103.0 mg/dl (70-99(Fasting)); Magnesium 1.8 mg/dl (1.7-2.4); Potassium 3.9 mmol/L (3.5-5.1); Sodium 139.0 mmol/L (136-145)
--- NOTE | 2025-04-05 09:21 | Gastroenterology Progress Note ---
Date of Service April 05, 2025 Assessment & Plan (1) Ascites: Plan: 59 year old female with history of HCV (treated w Brenda, SVR attained), ETOH cirrhosis, w Grade II esophageal varices s/p banding, portal HTN, ascites, COPD, chronic hypoxic respiratory failure, anemia, anxiety/mood disorder, alcohol abuse, tobacco abuse S/P 3L paracentesis, fluid studies w/o evidence of SBP, clinically improving, requesting discharge today - Continue Lasix 40 mg once daily - Increase Aldactone to 150 mg once daily - Trend electrolytes - Daily weights - Low NA diet, less than 2g sodium containing products daily - Educated to check labels of her drinks - MELD labs every 6 months - ABD imaging w/ AFP every 6 months - EGD every 1-2 years - No ETOH - No NSAIDs - Avoid hepatotoxin - Low NA diet, less than 2G daily - Less than 2G acetaminophen containing products daily - Need OP follow up with [facility] and [facility] I spent a total of 40 minutes on the date of service in review of patient's record, and previously obtained information in person and appropriate medical visit, discussion and education of plan, with patient and/or caregiver, placing orders for tests/referral/procedures as medically necessary and documentation of pertinent clinical information in patient's medical records for their visit today. Admission and Anticipated Discharge Date Admission Date: April 04, 2025 Subjective S/P 3L paracentesis. No SBP. Recommend dose titration of Aldactone. Feeling well. Wants to go home. Has PCP appt Tuesday. GI/Hep appt last week of March. Denies abd pain. No nausea/vomiting. No black or bloody stools. No fever, chills, CP. SOB improved, she notes breathing is near baseline. She now reports daily intake of e-lyte based drinks - she was not aware these had sodium in them and is not sure how much salt she is consuming from liquids. Respiratory PCR is negative on 04/03 Diagnosis: HCV/ETOH last ETOH use was September 2022 Decompensations: Varices: hx grade 2 s/p banding BB contraindicated per pulmonary Portal HTN: severe BB contraindicated per pulmonary Ascites/Edema: Lasix 40 mg On Spironolactone 100mg daily HE: none Screenings: MELD: 11 HCC: July 2025 Varices: banded in 2021, 2024 Immunizations: unknown Paracentesis 04/05/25: 3L off Paracentesis 03/29/25: 3L off Paracentesis 03/22/25: 1L off CTAP 2024: Cirrhosis and stigmata of portal hypertension including [id number] volume ascites. EGD 2024: Grade II esophageal varices. Banded. - Portal hypertensive gastropathy. - Hematin (altered blood/[id number] material) in the gastric fundus and in the gastric body. - Normal examined duodenum. - No specimens collected. EGD 2024: Fluid was found in the lower third of the esophagus. Fluid aspiration was performed. - A large amount of food (residue) was found in the gastric body and in the gastric fundus. - The examined duodenum was normal. EGD 2024: On entering esophagus there appeared to be fluid-filled brown liquid. Suctioning scope was withdrawn patient was placed in the left lateral decubitus position with oropharyngeal suctioning. Patient did spit up small amount of bile. Continued suctioning showed no further fluid in the posterior oropharynx. No definite aspiration. Anesthesia present. And will be to rescope with airway protection in the OR. In this patient with melena history of varices potential gastric outlet obstruction with further endoscopy with airway protection. - No specimens collected. - Possible gastric outlet obstruction. Fluid-filled esophagus. Rescope in OR EGD 2021: Grade II esophageal varices. Banded. - Small hiatal hernia. - Portal hypertensive gastropathy. - Normal duodenal bulb and second portion of the duodenum. - No specimens collected. EGD 2020: Grade II esophageal varices with no bleeding and no stigmata of recent bleeding. - Portal hypertensive gastropathy. - Normal examined duodenum. - No specimens collected. EUS 2012: fatty liver, gallbladder wall 4mm, ? Alvarado's esophagus, Grade I esophageal varices EGD/Colonoscopy 2016: Grade I varices, portal HTN; diverticulosis, int hemorrhoids. EGD 2019: showed hiatal hernia, grade 2 varices w/o stigmata of bleeding, severe portal gastropathy Review of Systems Review of Systems: All other findings negative except as noted in HPI. Physical Exam Constitutional: WD/WN, vitals as above Respiratory: normal respiratory effort, lungs clear to auscultation Gastrointestinal (Abdomen): normal bowel sounds, soft, nontender, no hepatosplenomegaly Skin: no rashes, warm and dry Results & Data Results & Data Vital Signs (Past 12 Hours) Vital Signs Temp Pulse Resp BP Pulse Ox O2 Del Method O2 Flow Rate 04/05/25 07:30 Nasal Cannula 3 04/05/25 07:08 97.9 F 78 16 93/58 L 96 Nasal Cannula 04/04/25 22:44 98.6 F 84 16 100/64 97 Nasal Cannula 3 Laboratory Results 04/05/25 04/04/25 Range/Units 06:19 Unknown WBC 5.27 (4.8-10.8) K/ul RBC 2.52 L (4.20-5.40) M/uL Hgb 7.9 L (12.0-16.0) g/dl Hct 24.0 L (37.0-47.0) % MCV 95.2 (80.0-100.0) fL MCH 31.3 (25.0-34.0) pg MCHC 32.9 (32.0-36.0) g/dL RDW Std Deviation 64.6 H (36.4-46.3) fL RDW Coeff of Radha 19.0 H (11.5-14.5) % Plt Count 77 L (130-400) K/uL MPV 11.5 (9.4-12.4) fL Sodium 139 (136-145) mmol/L Potassium 3.9 (3.5-5.1) mmol/L Chloride 107 (98-107) mmol/L Carbon Dioxide 27 (21-32) mmol/L Anion Gap 5 (3-11) BUN 8 (6-23) mg/dl Creatinine 0.69 (0.6-1.2) mg/dl Est Cr Clr Drug Dosing 60.0 ml/min eGFR 99.29 BUN/Creatinine Ratio 11.6 (10-20) Glucose 103 H (70-99(Fasting)) mg/dl Calcium 8.8 (8.6-10.3) mg/dl Phosphorus 3.9 (2.5-4.9) mg/dl Magnesium 1.8 (1.7-2.4) mg/dl Fluid Neutrophils % 6 % Fluid Lymphocytes % 22 % Fluid Basophils % 1 % Fluid Meso/Macro/[place] % 71 % Fluid Comment Peritoneal Color Yellow Peritoneal Appearance Hazy Peritoneal WBC (Auto) 294 (0-300) /ul Peritoneal RBC (Auto) < 2000 /uL Peritoneal Tot Protein < 3.0 gm/dl Peritoneal Albumin < 1.5 gm/dl PG Care Time/CCT Total # of Minutes Spent Total Time Spent with Patient: Total time spent is greater than 50% in coordination of care (as documented) at patient's floor/unit and/or counseling patient: Coding Level of Care Code 81397 SUB INP/OBS CARE 2/35MIN Diagnoses Ascites K70.31 Ascites type: due to alcoholic cirrhosis (1) Ascites Ascites type: due to alcoholic cirrhosis Qualified Code(s): K70.31 - Alcoholic cirrhosis of liver with ascites
--- NOTE | 2025-04-05 09:59 | Discharge Summary ---
Date of Service April 05, 2025 Admission HPI Per Admitting Provider History obtained from patient and records. Medical history significant for COPD, nocturnal hypoxemia as per records, alcoholic cirrhosis, history of esophageal varices, portal hypertension, HCV status post Rx, anemia (baseline hemoglobin 8-9), chronic thrombocytopenia,anxiety/mood disorder, past alcohol/tobacco abuse. Six admissions since October, Recent confinement March 22 to 2024 for UGIB secondary to esophageal varices. Grade 2 esophageal varices on endoscopy. Subsequent banding done. Patient also noted to have ascites status post paracentesis. Patient also discharged on Zyvox course for Enterococcus UTI. Patient noted painful abdominal distention over the last 2 days. Abdominal distention causing her to be short of breath. No unusual cough symptoms. Denies chest pain. No black/bloody stools. Legs more swollen than usual. Compliant with home medications. Denies inordinate salt intake. Medical History as above Surgical History : BTL, right hip replacement Family History : Alcoholism, cervical cancer, mental disorder Personal/Social history : past alcohol/tobacco abuse, disabled Admission Exam Per Admitting Provider GENERAL: Slightly uncomfortable, pleasant, no respiratory distress SKIN: Pallor, warm HEENT: Pale palpebral conjunctivae, no ptosis, moist buccal mucosa NECK : Supple, no tenderness CHEST : Decreased breath sounds, no tenderness HEART : RRR, no obvious murmurs ABDOMEN: Marked distention, central abdominal tenderness EXTREMITIES : Minimal LE swelling without tenderness, palpable pulses, no other conspicuous deformities noted NEUROLOGIC : Coherent, no facial asymmetry, no other gross focality Principal Diagnosis Ascites, shortness of breath secondary to ascites Discharge Exam GENERAL: thin, frail F in NAD HEENT: NC/AT. EOMI,anicteric sclearae NECK : Supple, no tenderness CHEST : Decreased breath sounds, no wheezing HEART : RRR, no obvious murmurs ABDOMEN: soft, nontender (s/p paracentesis) EXTREMITIES : no LE edema, moves extremities NEUROLOGIC : awake, alert, speech fluent, answers appropriately, no facial asymmetry, moves extremities SKIN: warm, dry Discharge Data Allergies Allergy/AdvReac Type Severity Reaction Status Date / Time codeine AdvReac Severe upset Verified 02/05/25 12:24 stomach Consultations 04/03/25 19:16 ED Decision to Admit Stat 04/04/25 00:02 Consult Gastroenterology Routine Ordered Studies 04/03/25 20:17 US abdomen ltd ascites Urgent FINDINGS: Free fluid: [id number] amount of ascites throughout the abdomen and pelvis, similar to previous. The largest fluid pocket measures 4-5 cm. IMPRESSION: [id number] amount of ascites throughout the abdomen and pelvis, similar to previous. 04/03/25 20:18 US venous doppler LE BI Urgent FINDINGS: Right deep veins: Unremarkable. No DVT in the right common femoral, femoral, proximal deep femoral or popliteal veins. The veins demonstrate normal color flow, are normally compressible, with normal phasic flow and/or augmentation response. Right superficial veins: Unremarkable. No thrombus in the visualized right great saphenous vein. Left deep veins: Unremarkable. No DVT in the left common femoral, femoral, proximal deep femoral or popliteal veins. The veins demonstrate normal color flow, are normally compressible, with normal phasic flow and/or augmentation response. Left superficial veins: Unremarkable. No thrombus in the visualized left great saphenous vein. Soft tissues: No acute findings. No popliteal cyst. IMPRESSION: Negative bilateral lower extremity duplex venous ultrasound. No evidence of DVT. 04/04/25 08:00 IR paracentesis abd w/img US Routine PROCEDURE: Procedure and risks were explained. Informed consent was obtained. A final timeout was completed. The abdomen was prepped and draped in sterile fashion. 1% lidocaine was utilized for skin anesthesia. Utilizing ultrasound guidance, a 5 Citizen [place] safety centesis catheter was advanced into the left lower quadrant pocket of ascites. Ultrasound images were obtained. 2.7 L of ascites fluid was removed, with 1 L sent to the lab for analysis. The catheter was removed and Band-Aid applied. The patient tolerated the procedure well. Vital signs will be monitored postprocedure. IMPRESSION: Ultrasound-guided paracentesis as above. Hospital Course (1) SOB (shortness of breath): SOB secondary to painful ascites Decompensated cirrhosis Possible SBP No sepsis on admission Admitted to med/tele Ceftriaxone, albumin for possible SBP Diagnostic and therapeutic paracentesis ordered on admission - pt underwent paracentesis and now feels much improved, she denies any shortness of breath or any abdominal pain, says she feels so much better, previous paracentesis on 03/29 3L of fluid, current 2.7L fluid drained no evidence of SBP Diuretics discussed with GI - continue lasix 40 daily and increase spironolactone to 150 mg daily Pt reports drinking electrolyte drinks - she was not aware they may be high in sodium - will be more aware now and check the label GI consulted and discussed with re: recurrent ascites, decompensated cirrhosis, - as above COPD, chronic cough symptoms HCV status post Rx History esophageal varices Anemia, hemoglobin at baseline Mood disorder, stable Past alcohol/tobacco abuse Total Time Total Time Spent Total Time Spent (In Minutes): 40 Discharge Plan Discharge Items Patient Disposition: Home - Self-Care Reason For Visit: SOB, DECOMPENSATED CIRRHOSIS Discharge Diagnosis: Ascites, shortness of breath secondary to ascites Condition on Discharge: Fair Activity: Per Instructions section Non-emergency contact: Primary Care Provider and Commercial [employer] Software Developer Call non-emergency contact if: you have any medication questions and your symptoms worsen Follow-up/Referrals: Sumi Dailey DO [Primary Care Provider] - (Date & Time 04/09/2025 8:40 AM Provider: Sumi Dailey DO [facility] ) Diet: Low Sodium (2gm) Addtl Attending Provider Instructions: Follow up with your primary care doctor and newsagent. Continue taking lasix 40 mg daily and increase your spironolactone to 150 mg daily. Monitor your weight daily. Make sure your diet is low in sodium. Pending Studies at Discharge: Yes Studies:: peritoneal fluid cultx results Stand-Alone Forms: [employer], Smoking Cessation Medications and DC Order Prescriptions: Continued albuterol sulfate 90 mcg/actuation Hfa Aerosol Inhaler 2 puff INHALATION Q4 PRN (Reason: Wheezing) Patient Comments: 03/22- last filled 08/13/24 34 day supply multivitamin Tablet 1 tab PO DAILY Trelegy Ellipta 100-62.5-25 mcg blister with device 1 inh INHALATION QAM docusate sodium 100 mg Capsule 100 mg PO BID PRN (Reason: Constipation) Patient Comments: 03/22- otc unable to verify oxycodone 5 mg tablet 5 mg PO BID PRN (Reason: Pain, Severe) pantoprazole 40 mg Tablet,Delayed Release (Dr/Ec) 40 mg PO BID Qty: 60 1RF potassium chloride 20 mEq tablet,ER particles/crystals 20 meq PO Q OTHER DAY furosemide 40 mg tablet 40 mg PO QAM Changed spironolactone 100 mg Tablet 150 mg PO QAM Qty: 30 0RF Discharge Orders: Discharge Order (Routine); Ordered 04/05/25 Ordered By: Delta Wiley Admission Data Admit Date/Time: 04/04/25 00:04 Attending Provider: Delta Wiley Admit Provider: Kristopher Arana Primary Care Provider: Sumi Dailey Other Providers: Kristopher Arana; Musa Gilbert; Hosea Vasquez; Jocelin Zamora; Zuleika Sanabria; Dulce Horton; Cris Stewart; Herbie Bro; Scarlett Broussard; Dean Cortez; Laci Bennett; Essence Hill; Lilian Roy; Oanh Guo; Lisa Beard; Monique Kowalski; Felipe Greene; [place]; Tete Weinberg; Justina Edmonds Jr; Gary Epps; Jean Sandoval; Gordon Mackey; Kev Tovar; Manju Paz; Jose Carlos Greene I; Mae Osorio; Aleksandr Brito; Mitchel Morris; Daniel Andrade; Rick Ocasio
== END 2025-04-05 13:29 | disposition home or self-care (01) | DRG 433 ==
LOC: ED 18:07 → EDINP 18:07 → 3E 20:00